=== PATIENT | male | born 1960 | race Caucasian/White ===

== ENCOUNTER 2019-04-11 11:24 | Emergency (ER) | payer OTHER ==
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
--- NOTE | 2019-04-11 12:25 | RAD REPORT ---
EXAM DESCRIPTION: CT - CTFB CLINICAL HISTORY: DEFORMITY Facial pain and swelling. COMPARISON: No comparisons TECHNIQUE: Axial 2 mm thick images of the face were obtained with sagittal and coronal reconstructio n images. All CT scans are performed using dose optimization technique as appropriate and may include automated exposure control or mA/KV adjustment according to patient size. FINDINGS: Deformity of the nasal bone is seen compatible with fracture. Mild soft tissue swelling.Th e mandible is intact. The globes and orbital contents are grossly unremarkable.Right periorbital soft tissue swelling.The p aranasal sinuses and mastoids are clear. IMPRESSION: Nasal bone fracture.
[2019-04-11 12:38] LABS: Absolute Monocytes 0.4 K/uL (0.1-1.3); Absolute Neutrophil 5.3 K/uL (1.8-8.0); Basophils % 0.4 % (0-1.3); Eosinophils % 1.5 % (0-4.4); Hematocrit 42.3 % (39.6-49.0); Lymphocytes % 25.5 % (15.3-44.8); MPV 7.2 fL (7.6-11.3); Monocytes % 5.6 % (3.3-12.3)
[2019-04-11 12:51] LABS: Potassium 3.7 mmol/L (3.5-5.1)
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
== END 2019-04-11 14:01 | disposition short-term general hospital (02) ==
LOC: ER 11:24
DX: S06.5X0A Traumatic subdural hemorrhage without loss of consciousness, initial encounter (principal); V18.0XXA Pedal cycle driver injured in noncollision transport accident in nontraffic accident, initial encounter; I10 Essential (primary) hypertension
CPT/HCPCS: 36415; 70450; 70486; 71250; 72125; 76377; 80048; 80320; 85025; 86850; 86900; 86901; 99285

== ENCOUNTER 2024-11-03 15:50 | Emergency (ER) | payer OTHER, SELFPAY ==
--- OUTSIDE RECORDS SUMMARY | 2024-11-03 15:58 | XMS REPORT | Continuity of Care Document ---
Author Name Unknown Address [address] [facility] [address] [place] [address] [facility] Address [address] [facility] 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 Role Phone Ashley Parkinson Primary Care Physician Shyla Zepeda Attending Clinician Unavailable BERANRDINO OSULLIVAN Attending Clinician Unavailable WOODY MARIN Attending Clinician Unavailable CATALINA TAY Attending Clinician UnavailJAMIA Hightower Attending Clinician Unavailable CARMELA IZQUIERDO Attending Clinician Unavailab CK Conti Attending Clinician Unavailable MELISSA DOMINGUEZ Attending Clinician Unavail able Genoveva Attending Clinician Unavailable LAB39 Attending Clinician Unavailable 39, HOLTER Attending Clinician Unavailable Jamil Manriquez MD Attending Clinician Doctor Unassigned, Harrington Attending Clinician U david Murryzaira DASILVAN, Jena Attending Clinician [phone] ISIAH KELLY Attending Clinician Unavailable ISIAH KELLY Attending Clinician Unavailable Amanda HARGROVE, Regine Attending Clinician [phone] Ruddy Kim MD Attending Clinician [phone] Broderick HARGROVE, Marli Attending Clinician [phone] Eugenio Padilla MD Attending Clinician [phone] Dewayne NELSON, Emily Aden Attending Clinician [phone] TEQWZACHARIAH EDDY Attending Clinician Unavailable Anat Rodriguez MD, Becky Attending Clinician [phone] Emmett Keys MD Attending Clinician [phone] TeqwimZachariah henderson DO Attending Clinician [phone] Elijah Lawson MD Attending Clinician [phone] JAMIL MANRIQUEZ Attending Clinician Unavailable JEANA DEAN Attending Clinician Unavailable Mitch Hull MD Attending Clinician + [phone] ELIGIO MANCAI Attending Clinician Unavailable Shyla Zepeda Admitting Clinician Unavailable CATALINA TAY Admitting Clinician UnavailCK Martinez Admitting Clinician Unavailable Genoveva Admitting Clinician Unavailable MARLI NEGRETE Admitting Clinician Unavailable EMMETT KEYS Admitting Clinician Unavailable Emmett Keys MD Admitting Clinician [phone] ELIGIO MANCIA Admitting Clinician Unavailable Payers Payer Name Policy Type Policy Number Effective Date Expirati on Date Source [facility] 9 [id number] 2024 00:00:00 [facility] [id number] 1999 00:00:00 1999 00:00:00 DIANDRA [id number] 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 ON STAND 9 [id number] 2022 00:00:00 Problems Condition Name Condition Details Condition Category Status Onset Date Resolution Date Last Treatment Date Treating Clinician Comments Source Chronic low back pain Chronic Low Back Pain Problem Active 03-31 00:00: [address] [facility] Mixed hyperlipid emia Mixed Hyperlipid emia Problem Active 03-31 00:00: [address] [facility] Essential hypertensi on Essential Hypertensi on Problem Active 03-31 00:00: [address] [facility] Benign essential hypertensi on Benign Essential Hypertensi on Problem Active 03-31 00:00: [address] [facility] Coronary atheroscle rosis Coronary Atheroscle rosis Problem Active 03-31 00:00: [address] [facility] Pulmonary emphysema Pulmonary Emphysema Problem Active 03-31 00:00: [address] [facility] HTN (hypertens ion) HTN (hypertens ion) Disease Active 06-21 00:00: 00 Belkis Seybold - Externa l Hyperlipid emia Hyperlipid emia Disease Active 06-21 00:00: 00 Belkis Seybold - Externa l CAD (coronary artery disease) CAD (coronary artery disease) Disease Active 06-21 00:00: 00 Belkis Seybold - Externa l History of CVA (cerebrova scular accident) History of CVA (cerebrova scular accident) Disease Active 06-21 00:00: 00 Belkis Seybold - Externa l Tobacco abuse Tobacco abuse Disease Active 06-21 00:00: 00 Belkis Seybold - Externa l HLD (hyperlipi demia) HLD (hyperlipi demia) Disease Active 2021-11 00:00: 00 [facility] COPD (chronic obstructiv e pulmonary disease) COPD (chronic obstructiv e pulmonary disease) Disease Recurre nce 2021-11 00:00: 00 [facility] Pneumonia Pneumonia Disease Active 2021-11 00:00: 00 [facility] STEMI (ST elevation myocardial infarction ) STEMI (ST elevation myocardial infarction ) Disease Active 2021-11 00:00: 00 [facility] Essential hypertensi on Essential hypertensi on Disease Active 03-22 00:00: 00 [facility] Chest pain Chest pain Disease Active 04-10 00:00: 00 [facility] Chronic midline low back pain without sciatica Chronic midline low back pain without sciatica Disease Active 04-10 00:00: 00 [facility] Hypertensi ve urgency Hypertensi ve urgency Disease Active 04-10 00:00: 00 [facility] Cigarette smoker Cigarette smoker Disease Active 04-10 00:00: 00 [facility] Family history of early CAD Family history of early CAD Disease Active 04-10 00:00: 00 [facility] SDH SDH Active 9 [facility] Diagnosis Active 04-11 00:00: 00 2019-12-16 14:32:00 Minna Jacinto SDHA SDHA Active 04/11/2019 [facility] Diagnosis Active 04-11 00:00: 00 2019-04-23 20:23:00 Minna Jacinto TRAUM SUBDR HEM W LOC OF UNSP DURATION, TRAUM SUBDR HEM W LOC OF UNSP DURATION, Active [facility] Diagnosis Active 2019-12-16 14:32:00 Minna Jacinto Pain Pain Disease Resolve d 2021-11 00:00: 00 2022-09-30 00:00:00 2022-09-30 22:49:00 [facility] Allergies, Adverse Reactions, Alerts Allergy Name Allergy Type Status Severity Reaction(s) Onset Date Inactive Date Treating Clinician Comments Source No Known Allergie s DA Active U 2023-11 00:00: 00 [facility] NO KNOWN ALLERGIE S Drug Class Active [facility] Family History Family Member Diagnosis Comments Start Date Stop Date Sourc e Natural father Coronary Heart [facility] Social History Social Habit Start Date Stop Date Quantity Comments Source [facility] Gender identity Brittany ey Seybold - External History of tobacco use Cigarette Smoker Belkis Bright old - External Education 2023-06-21 00:00:00 2023-06-21 00:00:00 13 Belkis Courtney - External Alcohol Comment 2023-06-21 00:00:00 2023-06-21 00:00:00 occasionally Belkis Valdez - External Cigarettes smoked current (pack per day) - Reported 2023-06-21 00:00:00 2023-06-21 00:00:00 Belkis Valdez - External Cigarette pack-years 2023-06-21 00:00:00 2023-06-21 00:00:00 Belkis Valdez - External Tobacco use and exposure 2023-06-21 00:00:00 2023-06-21 00:00:00 Smokeless tobacco non-user Belkis Valdez - External Alcohol intake 2023-06-21 00:00:00 2023-06-21 00:00:00 .86 /d Belkis Valdez - External Alcoholic beverage intake 2022-10-03 00:00:00 2022-10-03 00:00:00 Ex-drinker (finding) [facility] Exposure to SARS-CoV-2 (event) 2022-09-21 00:00:00 2022-10-01 02:29:00 Not sure [facility] History SDOH Food Worry 2022-09-27 00:00:00 2022-09-27 00:00:00 1 [facility] History SDOH Food Scarcity 2022-09-27 00:00:00 2022-09-27 00:00:00 1 [facility] History SDOH Transport Med 2022-09-27 00:00:00 2022-09-27 00:00:00 2 [facility] History SDOH Transport Non-Med 2022-09-27 00:00:00 2022-09-27 00:00:00 2 [facility] History of Social function 2021-02-06 00:00:00 2021-02-06 00:00:00 [facility] Social History 2019-04-12 04:25:51 2019-04-12 04:25:51 [facility] [place] Sex Assigned At 1960 00:00:00 1960 00:00:00 Belkis Valdez - External Smoking Status Start Date Stop Date Source Heavy Tobacco Smoker [facility] Smokes tobacco daily 2023-06-21 00:00:00 Belkis Valdez - External Former smoker 2021-03-22 00:00:00 2021-03-22 00:00:00 [facility] Medications Ordered Medication Name Filled Medication Name Start Date Stop Date Current Medication? Ordering Clinician Indication Dosage Frequency Signature (SIG) Comments Components Source spironolact one 25 mg tablet 06-26 00:00: 00 Yes 1mg Lance Cifuentes Jardiance 10 mg tablet 06-26 00:00: 00 Yes 1mg Lance Cifuentes prasugrel 10 mg tablet 06-26 00:00: 00 Yes 1mg Lance Cifuentes furosemide 20 mg tablet 06-26 00:00: 00 Yes 1mg Lance Cifuentes carvedilol 12.5 mg tablet 06-26 00:00: 00 Yes 1mg Lance Cifuentes atorvastati n 80 mg tablet 06-26 00:00: 00 Yes 1mg Lance Cifuentes enoxaparin 80 mg/0.8 mL subcutaneou s syringe 06-26 00:00: 00 Yes mg/0.8 mL Lance Cifuentes hydralazine 50 mg tablet 06-26 00:00: 00 Yes mg Lance Cifuentes losartan 100 mg tablet 06-26 00:00: 00 Yes mg Lance Cifuentes clopidogrel 75 mg tablet 06-26 00:00: 00 Yes 1mg Lance Cifuentes carvediloL (COREG) tablet 6.25 mg 06-14 03:15: 00 06-14 03:54 :00 No 6.25mg 6.25 mg, Oral, ONCE, 1 dose, On 06/13/24 at 2215, Routine [facility] losartan (COZAAR) tablet 100 mg 06-14 03:15: 00 06-14 03:54 :00 No 100mg 100 mg, Oral, ONCE, 1 dose, On 06/13/24 at 2215, Routine [facility] furosemide (LASIX) tablet 20 mg 06-14 03:15: 00 06-14 03:53 :00 No 20mg 20 mg, Oral, ONCE, 1 dose, On 06/13/24 at 2215, Routine [facility] hydrALAZINE (APRESOLINE ) tablet 50 mg 06-14 03:05: 00 06-14 03:53 :00 No 50mg 50 mg, Oral, ONCE, 1 dose, On 06/13/24 at 2215, Routine [facility] atorvastati n 80 mg tablet 06-13 00:00: 00 Yes [id number] 80mg Take 1 tablet by mouth at bedtime. [facility] aspirin 81 mg chewable tablet 06-13 00:00: 00 Yes [id number] 81mg Take 1 tablet by mouth in the morning. [facility] carvediloL 6.25 mg tablet 06-13 00:00: 00 Yes [id number] 6.25mg Take 1 tablet by mouth in the morning and 1 tablet in the evening. Take with meals. [facility] hydrALAZINE 50 mg tablet 06-13 00:00: 00 Yes [id number] 50mg Take 1 tablet by mouth every 8 (eight) hours. [facility] losartan 100 mg tablet 06-13 00:00: 00 Yes [id number] 100mg Take 1 tablet by mouth every evening. [facility] nicotine 21 mg/24 hr patch 06-13 00:00: 00 Yes [id number] 1{patch } Apply 1 Patch to area(s) every 24 (twenty-fo ur) hours. [facility] hydralazine 50 mg tablet 06-07 00:00: 00 Yes mg Lance Cifuentes carvedilol 6.25 mg tablet 04-03 00:00: 00 Yes mg Lance Cifuentes losartan 100 mg tablet 04-03 00:00: 00 Yes mg Lance Cifuentes Clopidogrel Bisulfate (PLAVIX) 75 MG oral Tablet 06-21 10:10: 31 Yes [id number] 75mg 1 tablet (75 mg total) every 24 hours Belkis simpson Furosemide (LASIX) 20 MG oral Tablet 06-21 10:10: 31 Yes [id number] 20mg 1 tablet (20 mg total) every 24 hours Belkis simpson Fluticasone -Salmeterol (Advair Diskus) 250-50 MCG/ACT inhalation AEROSOL POWDER, BREATH ACTIVATED 06-21 00:00: 00 Yes [id number] 1{puff} Inhale 1 puff into the lungs 2 times daily Belkis simpson Albuterol HFA 108 (90 Base) MCG/ACT IN AERS 06-21 00:00: 00 Yes [id number] 2{puff} Q.25D Inhale 2 puffs into the lungs every 6 hours as needed for wheezing or shortness of breath Belkis simpson nicotine 21 mg/24 hr patch 2021-11 00:00: 00 06-13 00:00 :00 No [id number] 1{patch } Apply 1 Patch to area(s) every 24 (twenty-fo ur) hours. [facility] clopidogreL 75 mg tablet 2021-11 00:00: 00 10-20 05:59 :00 No [id number] 75mg Take 1 tablet by mouth in the morning for 15 days. [facility] zolpidem (AMBIEN) tablet 5 mg 2021-11 04:15: 00 10-03 03:40 :00 No 5mg 5 mg, Oral, ONCE, 1 dose, On Sat10/02/22 at 2215, Routine [facility] melatonin (MELATIN) tablet 3 mg 2021-11 05:15: 00 10-02 05:19 :00 No 3mg 3 mg, Oral, ONCE, 1 dose, On Sat10/01/22 at 2315, Routine [facility] atorvastati n (LIPITOR) tablet 80 mg 2021-11 03:00: 00 Yes 80mg 80 mg, Oral, QHS, First dose on Sat10/01/22 at 2100, Until Discontinu ed, Routine [facility] losartan (COZAAR) tablet 100 mg 2021-11 23:00: 00 Yes 100mg 100 mg, Oral, DAILY AT 1700, First dose on Sat10/01/22 at 1700, Until Discontinu ed, Routine [facility] nicotine (NICODERM) 21 mg/24 hr patch 1 Patch 2021-11 21:45: 00 Yes 1{patch } 1 Patch, Topical, Administer over 24 Hours, Q24H, First dose on Sat10/01/22 at 1545, Until Discontinu ed, Routine [facility] clopidogreL (PLAVIX) 75 mg tablet 75 mg 2021-11 15:00: 00 Yes 75mg 75 mg, Oral, DAILY, First dose on Sat10/01/22 at 0900, Until Discontinu ed, Routine [facility] aspirin chewable tablet 81 mg 2021-11 15:00: 00 Yes 81mg 81 mg, Oral, DAILY, First dose on Sat10/01/22 at 0900, Until Discontinu ed, Routine [facility] carvediloL (COREG) tablet 6.25 mg 2021-11 14:00: 00 Yes 6.25mg 6.25 mg, Oral, BID MEALS, First dose on Sat10/01/22 at 0800, Until Discontinu ed, Routine [facility] NaCl 0.9% (NS) bolus infusion 500 mL 2021-11 05:00: 00 10-01 16:59 :00 No 500mL at 999 mL/hr, 500 mL, IV Infusion, ONCE, 1 dose, On Sat09/30/22 at 2300, STAT [facility] lidocaine 1% (PF) (XYLOCAINE) injection 2021-11 04:41: 16 10-01 04:41 :16 No ONCE INTRA PROCEDURE, Starting on Sat09/30/22 at 2241, Until Sat09/30/22 at 2241, Routine, CV Intraproce dure [facility] midazolam (VERSED) injection 2021-11 04:39: 00 10-01 05:07 :39 No ONCE INTRA PROCEDURE, Starting on 09/30/22 at 2239, Until 09/30/22 at 2307, Routine, CV Intraproce dure [facility] aspirin tablet 325 mg 2021-11 03:45: 00 10-01 15:44 :00 No 325mg 325 mg, Oral, ONCE, 1 dose, On 09/30/22 at 2145, STAT [facility] enoxaparin 80 mg/0.8 mL injection 2021-11 00:00: 00 Yes [id number] 80mg inject 0.8 mL under the skin every 12 (twelve) hours. [facility] clopidogreL 300 mg tablet 2021-11 00:00: 00 10-01 05:59 :00 No [id number] 600mg Take 2 tablets by mouth once now for 1 dose. [facility] prasugreL 10 mg tablet 2021-11 00:00: 00 Yes [id number] 10mg Take 1 tablet by mouth in the morning. [facility] aspirin 81 mg chewable tablet 2021-11 00:00: 00 06-13 00:00 :00 No [id number] 81mg Take 1 tablet by mouth in the morning. [facility] furosemide (LASIX) 20 mg tablet 2021-11 00:00: 00 Yes [id number] 20mg Take 1 tablet by mouth in the morning. [facility] atorvastati n 80 mg tablet 2021-11 00:00: 00 06-13 00:00 :00 No [id number] 80mg Take 1 tablet by mouth at bedtime. [facility] carvediloL 6.25 mg tablet 2021-11 00:00: 00 06-13 00:00 :00 No [id number] 6.25mg Take 1 tablet by mouth in the morning and 1 tablet in the evening. Take with meals. [facility] hydrALAZINE 50 mg tablet 2021-11 00:00: 00 06-13 00:00 :00 No [id number] 50mg Take 1 tablet by mouth every 8 (eight) hours. [facility] losartan 100 mg tablet 2021-11 00:00: 00 06-13 00:00 :00 No [id number] 100mg Take 1 tablet by mouth every evening. [facility] spironolact one 25 mg tablet 2021-11 00:00: 00 09-30 00:00 :00 No [id number] 25mg Take 1 tablet by mouth in the morning and 1 tablet in the evening. [facility] prasugreL (EFFIENT) tablet 10 mg 2021-11 15:00: 00 09-26 23:07 :12 No 10mg 10 mg, Oral, DAILY, First dose on Sat09/25/22 at 0900, Until Discontinu ed, Routine [facility] atorvastati n (LIPITOR) tablet 80 mg 2021-11 03:00: 00 09-26 23:07 :12 No 80mg 80 mg, Oral, QHS, First dose (after last modificati on) on Sat09/24/22 at 2100, Until Discontinu ed, Routine [facility] lactulose (CEPHULAC) solution 15 mL 2021-11 01:54: 12 09-26 23:07 :12 No 15mL 15 mL, Oral, TIDPRN, Starting on Sat09/24/22 at 1954, Until Sat09/26/22 at 1707, Routine, Constipati on [facility] losartan (COZAAR) tablet 100 mg 2021-11 23:00: 00 09-26 23:07 :12 No 100mg 100 mg, Oral, DAILY AT 1700, First dose (after last modificati on) on Sat09/24/22 at 1700, Until Discontinu ed, Routine [facility] simethicone (MYLICON) chewable tablet 125 mg 2021-11 22:15: 00 09-26 23:07 :12 No 125mg 125 mg, Oral, PC+HS, First dose on Sat09/24/22 at 1615, Until Discontinu ed, Routine [facility] iohexoL (OMNIPAQUE 300-50 mL)) injection 2021-11 18:47: 18 09-24 19:09 :25 No ONCE INTRA PROCEDURE, Starting on Sat09/24/22 at 1247, Until Sat09/24/22 at 1309, Routine, CV Intraproce dure [facility] aspirin tablet 2021-11 18:46: 04 09-24 19:09 :25 No ONCE INTRA PROCEDURE, Starting on Sat09/24/22 at 1246, Until Sat09/24/22 at 1309, Routine, CV Intraproce dure [facility] prasugreL (EFFIENT) tablet 2021-11 18:45: 52 09-24 19:09 :25 No ONCE INTRA PROCEDURE, Starting on Sat09/24/22 at 1245, Until Sat09/24/22 at 1309, Routine, CV Intraproce dure [facility] nitroglycer in (TRIDIL) 2 mg in 10 mL D5W for Cardiac Cath 2021-11 17:52: 22 09-24 19:09 :25 No ONCE INTRA PROCEDURE, Starting on Sat09/24/22 at 1152, Until Sat09/24/22 at 1309, Routine, CV Intraproce dure [facility] heparin 1,000 unit/mL injection 2021-11 16:57: 26 09-24 19:09 :25 No ONCE INTRA PROCEDURE, Starting on Sat09/24/22 at 1057, Until Sat09/24/22 at 1309, Routine, CV Intraproce dure [facility] NaCl 0.9% (NS) bolus infusion 2021-11 16:42: 52 09-24 16:42 :52 No CONTINUOUS PRN, Starting on Sat09/24/22 at 1042, Until Discontinu ed, [facility] 2021-11 16:42: 15 09-24 19:09 :25 No ONCE INTRA PROCEDURE, Starting on Sat09/24/22 at 1042, Until Sat09/24/22 at 1309, Routine, CV Intraproce dure [facility] FENTanyl PF (SUBLIMAZE (PF)) injection 2021-11 16:42: 00 09-24 19:09 :25 No ONCE INTRA PROCEDURE, Starting on Sat09/24/22 at 1042, Until Sat09/24/22 at 1309, Routine, CV Intraproce dure [facility] HYDROcodone -acetaminop hen (NORCO 5) 5-325 mg tablet 1 tablet 2021-11 18:41: 33 09-26 23:07 :12 No 1{tbl} 1 tablet, Oral, Q6HPRN, Starting on 09/22/22 at 1241, Until Sat09/26/22 at 1707, Routine, Pain (scale 7-10) [facility] traMADoL (ULTRAM) tablet 50 mg 2021-11 18:41: 26 09-26 23:07 :12 No 50mg 50 mg, Oral, Q6HPRN, Starting on 09/22/22 at 1241, Until Sat09/26/22 at 1707, Routine, Pain (scale 4-6) [facility] KCL (KLOR-CON M20) tablet 40 mEq 2021-11 13:30: 00 09-22 12:49 :00 No 40meq 40 mEq, Oral, ONCE, 1 dose, On 09/22/22 at 0730, Routine [facility] heparin (porcine) injection 5,000 Units 2021-11 02:00: 00 09-26 23:07 :12 No 5000U 5,000 Units, Subcutaneo us, BID, First dose on Sat09/21/22 at 2000, Until Discontinu ed, Routine [facility] spironolact one (ALDACTONE) tablet 25 mg 2021-11 02:00: 00 09-26 23:07 :12 No 25mg 25 mg, Oral, BID, First dose on Sat09/21/22 at 2000, Until Discontinu ed, Routine [facility] furosemide (LASIX) injection 80 mg 2021-11 20:00: 00 09-23 21:53 :00 No 80mg 80 mg, IV Push, Q8H, First dose (after last modificati on) on Sat09/21/22 at 1400, Until Discontinu ed, Routine [facility] metOLazone (ZAROXOLYN) tablet 5 mg 2021-11 19:45: 00 09-21 20:12 :00 No 5mg 5 mg, Oral, ONCE, 1 dose, On Sat09/21/22 at 1345, Routine [facility] lidocaine 1% (PF) (XYLOCAINE) injection 2021-11 19:22: 00 09-21 19:22 :00 No PRN, Starting on Sat09/21/22 at 1322, Until Sat09/21/22 at 1322, Routine [facility] dextrose 10% (D10W) bolus infusion 125 mL 2021-11 19:10: 20 09-26 23:07 :12 No 125mL 125 mL, IV Infusion, PRN - SEE INSTRUCTIO NS, Administer over 60 Minutes, Other, Blood Glucose < or = 70 mg/dL and patient is unable to swallow or has mental status changes., Starting on Sat09/21/22 at 1310
De xtrose 10% 250 mL bag contains:& nbsp;10 gm = 100 mL 20 gm = 200 mL 25 gm = 250 mL (whole bag) The maximum rate at which dextrose can be infused without producing glycosuria is 0.5 g/kg/hour. &nbs p;BUD: If wrapper is open bag is good for 30 days at room temperatur e. <b r> [facility] glucagon (GLUCAGEN DIAGNOSTIC KIT) injection 1 mg 2021-11 19:06: 58 09-26 23:07 :12 No 1mg 1 mg, Intramuscu lar, PRN, Starting on Sat09/21/22 at 1306, Until Sat09/26/22 at 1707, ENZO, Blood Glucose < or = 70 mg/dL and patient is unable to swallow or has mental changes. [facility] iopamidol (ISOVUE 370-500 mL) injection 80 mL 2021-11 16:45: 00 09-21 15:34 :00 No [id number] 80mL 80 mL, Intravenou s, ONCE, 1 dose, On Sat09/21/22 at 1045, Routine [facility] carvediloL (COREG) tablet 6.25 mg 2021-11 14:00: 00 09-26 23:07 :12 No 6.25mg 6.25 mg, Oral, BID MEALS, First dose on Sat09/21/22 at 0800, Until Discontinu ed, Routine [facility] furosemide (LASIX) injection 40 mg 2021-11 04:00: 00 09-21 18:54 :37 No 40mg 40 mg, IV Push, Q8H, First dose on Sat09/20/22 at 2200, Until Discontinu ed, Routine [facility] ALPRAZolam (XANAX) tablet 0.5 mg 2021-11 16:54: 09 09-26 13:05 :53 No .5mg 0.5 mg, Oral, TIDPRN, Starting on Sat09/20/22 at 1054, Until Sat09/26/22 at 0705, Routine, Anxiety, [facility]ut[facility] propion-corey meteroL (ADVAIR) 250-50 mcg/dose inhalation disk 1 Puff 2021-11 02:00: 00 09-26 23:07 :12 No 1{puff} 1 Puff, Inhalation , Q12H, First dose on Sat09/19/22 at 2000, Until Discontinu ed, Routine [facility] furosemide (LASIX) injection 40 mg 2021-11 23:00: 00 09-19 23:44 :00 No 40mg 40 mg, Slow IV Push, ONCE, 1 dose, On Sat09/19/22 at 1700, [facility]ine [facility] ALPRAZolam (XANAX) tablet 0.5 mg 2021-11 13:06: 53 09-20 16:54 :32 No .5mg 0.5 mg, Oral, TIDPRN, Starting on Sat09/19/22 at 0706, Until Sat09/20/22 at 1054, Routine, insomnia [facility] ceFEPIme (MAXIPIME) 1,000 mg in NaCl 0.9% (NS) 50 mL MINI-BAG 2021-11 05:15: 00 09-25 14:23 :25 No 1000mg 1,000 mg, IV Piggyback, Q8H ABX, 21 doses, First dose on Sat09/18/22 at 2315, Last dose on Sat09/25/22 at 1515, Administer over 4 Hours, 50 mL
Reas on for Anti-Infec tive: Documented Infection< br>Documen alee Infection Site: Respirator y
Durat ion of Therapy: 7 days [facility] metoprolol tartrate (LOPRESSOR) tablet 50 mg 2021-11 02:00: 00 09-21 02:04 :54 No 50mg 50 mg, Oral, BID, First dose (after last modificati on) on Sat09/18/22 at 2000, Until Discontinu ed, Routine [facility] ALPRAZolam (XANAX) tablet 0.5 mg 2021-11 21:47: 59 09-19 00:09 :00 No .5mg 0.5 mg, Oral, TIDPRN, 1 dose, Starting on Sat09/18/22 at 1547, Until Sat09/18/22 at 1809, Routine, insomnia [facility] ceFEPIme (MAXIPIME) 1,000 mg in NaCl 0.9% (NS) 50 mL MINI-BAG 2021-11 21:30: 00 09-18 22:38 :00 No 1000mg 1,000 mg, IV Piggyback, ONCE, 1 dose, On Sat09/18/22 at 1530, Administer over 30 Minutes, 50 mL
Reas on for Anti-Infec tive: Documented Infection< br>Documen alee Infection Site: Respirator y
Durat ion of Therapy: Other (see Comments) [facility] hydrALAZINE (APRESOLINE ) tablet 50 mg 2021-11 20:00: 00 09-26 23:07 :12 No 50mg 50 mg, Oral, Q8H, First dose on Sat09/18/22 at 1400, Until Discontinu ed, Routine [facility] ALPRAZolam (XANAX) tablet 0.5 mg 2021-11 15:39: 13 09-18 15:56 :00 No .5mg 0.5 mg, Oral, TIDPRN, 1 dose, Starting on Sat09/18/22 at 0939, Until Sat09/18/22 at 0956, Routine, insomnia [facility] hydralAZINE (APRESOLINE ) injection 10 mg 2021-11 12:00: 00 09-18 14:43 :00 No 10mg 10 mg, Slow IV Push, ONCE, 1 dose, On Sat09/18/22 at 0600, STAT [facility] hydralAZINE (APRESOLINE ) injection 10 mg 2021-11 10:30: 00 09-18 10:21 :00 No 10mg 10 mg, Slow IV Push, ONCE, 1 dose, On Sat09/18/22 at 0430, STAT [facility] ipratropium -albuteroL (DUONEB) 0.5 mg-3 mg(2.5 mg base)/3 mL nebulizer solution 3 mL 2021-11 09:45: 00 09-18 08:52 :00 No 3mL 3 mL, Inhalation , ONCE, 1 dose, On Sat09/18/22 at 0345, Routine [facility] cloNIDine (CATAPRES) tablet 0.1 mg 2021-11 08:08: 59 09-26 23:07 :12 No .1mg 0.1 mg, Oral, TIDPRN, Starting on Sat09/18/22 at 0208, Until Sat09/26/22 at 1707, Routine, above 160/100 [facility] ALPRAZolam (XANAX) tablet 0.5 mg 2021-11 01:57: 40 09-18 02:27 :00 No .5mg 0.5 mg, Oral, QHSPRN, 1 dose, Starting on Sat09/17/22 at 1957, Until Sat09/17/22 at 7, Routine, insomnia [facility] iopamidol (ISOVUE 370-500 mL) injection 2021-11 20:01: 38 09-17 20:08 :06 No ONCE INTRA PROCEDURE, Starting on Sat09/17/22 at 1401, Until Sat09/17/22 at 1408, Routine, CV Intraproce dure [facility] verapamiL (ISOPTIN) injection 2021-11 19:38: 35 09-17 20:08 :06 No ONCE INTRA PROCEDURE, Starting on Sat09/17/22 at 1338, Until Sat09/17/22 at 1408, Routine, CV Intraproce dure [facility] nitroglycer in (TRIDIL) 2 mg in 10 mL D5W for Cardiac Cath 2021-11 19:38: 20 09-17 20:08 :06 No ONCE INTRA PROCEDURE, Starting on Sat09/17/22 at 1338, Until Sat09/17/22 at 1408, Routine, CV Intraproce dure [facility] heparin 1,000 unit/mL injection 2021-11 19:37: 55 09-17 20:08 :06 No ONCE INTRA PROCEDURE, Starting on Sat09/17/22 at 1337, Until Sat09/17/22 at 1408, Routine, CV Intraproce dure [facility] NaCl 0.9% (NS) bolus infusion 2021-11 19:35: 06 09-17 19:35 :06 No CONTINUOUS PRN, Starting on Sat09/17/22 at 1335, Until Sat09/17/22 at 1335, STAT, CV Intraproce dure [facility] lidocaine 1% (PF) (XYLOCAINE) injection 2021-11 19:34: 33 09-17 20:08 :06 No ONCE INTRA PROCEDURE, Starting on Sat09/17/22 at 1334, Until Sat09/17/22 at 1408, Routine, CV Intraproce dure [facility] midazolam (VERSED) injection 2021-11 19:32: 37 09-17 20:08 :06 No ONCE INTRA PROCEDURE, Starting on Sat09/17/22 at 1332, Until Sat09/17/22 at 1408, Routine, CV Intraproce dure [facility] FENTanyl PF (SUBLIMAZE (PF)) injection 2021-11 19:32: 26 09-17 20:08 :06 No ONCE INTRA PROCEDURE, Starting on Sat09/17/22 at 1332, Until Sat09/17/22 at 1408, Routine, CV Intraproce dure [facility] ipratropium -albuteroL (DUONEB) 0.5 mg-3 mg(2.5 mg base)/3 mL nebulizer solution 3 mL 2021-11 11:42: 00 09-17 11:51 :00 No 3mL 3 mL, Inhalation , ONCE, 1 dose, On Sat09/17/22 at 0545, Routine [facility] LORazepam (ATIVAN) injection 0.5 mg 2021-11 10:47: 20 09-17 10:57 :00 No .5mg 0.5 mg, Slow IV Push, TIDPRN, 1 dose, Starting on Sat09/17/22 at 0447, Until Sat09/17/22 at 0457, Routine, Anxiety [facility] ALPRAZolam (XANAX) tablet 0.5 mg 2021-11 03:16: 50 09-17 08:20 :00 No .5mg 0.5 mg, Oral, QHSPRN, 1 dose, Starting on Sat09/16/22 at 2116, Until Sat09/17/22 at 0220, Routine, insomnia [facility] nicotine (NICODERM) 14 mg/24 hr patch 1 Patch 2021-11 02:00: 00 09-26 23:07 :12 No 1{patch } 1 Patch, Topical, Administer over 24 Hours, Q24H, First dose on 09/16/22 at 2000, Until Discontinu ed, Routine [facility] clopidogreL (PLAVIX) 75 mg tablet 75 mg 2021-11 15:00: 00 Yes 75mg 75 mg, Oral, DAILY, First dose on 09/16/22 at 0900, Until Discontinu ed, Routine [facility] clopidogreL (PLAVIX) 300 mg tablet 300 mg 2021-11 21:30: 00 09-15 22:41 :00 No 300mg 300 mg, Oral, ONCE, 1 dose, On 09/15/22 at 1630, Routine [facility] aspirin chewable tablet 81 mg 2021-11 14:00: 00 09-26 23:07 :12 No 81mg 81 mg, Oral, DAILY, First dose on 09/15/22 at 0900, Until Discontinu ed, Routine [facility] enoxaparin (LOVENOX) injection 70 mg 2021-11 13:00: 00 09-17 05:13 :10 No 1mg/kg 70 mg (rounded from 73 mg = 1 mg/kg ?73 kg), Subcutaneo us, Q12H, First dose on 09/15/22 at 0800, Until Discontinu ed, Routine [facility] losartan (COZAAR) tablet 50 mg 2021-11 07:15: 00 Yes 50mg 50 mg, Oral, DAILY AT 1700, First dose on 09/15/22 at 0215, Until Discontinu ed, Routine [facility] ipratropium -albuteroL (DUONEB) 0.5 mg-3 mg(2.5 mg base)/3 mL nebulizer solution 3 mL 2021-11 07:15: 00 09-26 23:07 :12 No 3mL 3 mL, Inhalation , QID, First dose (after last modificati on) on 09/15/22 at 0215, Until Discontinu ed, Routine [facility] methylpredn isolone sod succ (SOLU-MEDRO L) injection 60 mg 2021-11 07:15: 00 09-26 23:07 :12 No 60mg 60 mg, Slow IV Push, Q12HA1, First dose on 09/15/22 at 0215, Until Discontinu ed, Routine [facility] azithromyci n (ZITHROMAX) tablet 500 mg 2021-11 07:15: 00 09-17 02:41 :00 No 500mg 500 mg, Oral, QHS, 3 doses, First dose on 09/15/22 at 0215, Last dose on 09/16/22 at 2100, ENZO
Re ason for Anti-Infec tive: Empiric Therapy for Suspected Infection< br>Empiric Therapy Site: Respirator y
Durat ion of therapy: 72 hours [facility] atorvastati n (LIPITOR) tablet 40 mg 2021-11 07:00: 00 Yes 40mg 40 mg, Oral, QHS, First dose on 09/15/22 at 0200, Until Discontinu ed, Routine [facility] metoprolol tartrate (LOPRESSOR) tablet 25 mg 2021-11 07:00: 00 Yes 25mg 25 mg, Oral, BID, First dose on 09/15/22 at 0200, Until Discontinu ed, Routine [facility] labetaloL (NORMODYNE) injection 10 mg 2021-11 06:56: 41 09-26 23:07 :12 No 10mg 10 mg, Slow IV Push, Q4HPRN, Starting on 09/15/22 at 0156, Until Sat09/26/22 at 1707, Routine, SBP above 150 [facility] ondansetron (ZOFRAN (PF)) injection 4 mg 2021-11 06:55: 45 09-26 23:07 :12 No 4mg 4 mg, Slow IV Push, Q6HPRN, Starting on 09/15/22 at 0155, Until Sat09/26/22 at 1707, Routine, Nausea and Vomiting (N/V) [facility] acetaminoph en (TYLENOL) tablet 650 mg 2021-11 06:55: 37 09-26 23:07 :12 No 650mg 650 mg, Oral, Q6HPRN, Starting on 09/15/22 at 0155, Until 09/26/22 at 1707, Routine, Pain (scale 1-3) [facility] valsartan-h ydrochlorot hiazide 320-12.5 mg per tablet 03-22 00:00: 00 09-26 00:00 :00 No [id number] 1{tbl} Take 1 tablet by mouth daily. [facility] tiZANidine 4 mg tablet 03-22 00:00: 00 09-26 00:00 :00 No [id number] 4mg Take 1 tablet by mouth every 6 (six) hours as needed for Pain (scale 4-6). [facility] acetaminoph en-codeine (TYLENOL-CO DEINE #3) 300-30 mg tablet 03-22 00:00: 00 03-30 04:59 :00 No [id number] 1{tbl} Take 1 tablet by mouth every 4 (four) hours as needed for Pain (scale 4-6) for up to 7 days. Indication s: chronic pain [facility] valsartan-h ydrochlorot hiazide 160-12.5 mg per tablet 03-09 00:00: 00 03-22 00:00 :00 No [id number] 1{tbl} Take 1 tablet by mouth daily. [facility] traMADoL 50 mg tablet 03-09 00:00: 00 03-17 04:59 :00 No [id number] 50mg Take 1 tablet by mouth every 6 (six) hours as needed for Pain (scale 4-6) for up to 7 days. Indication s: chronic pain [facility] losartan 100 mg tablet 3- 00:00: 00 03-09 00:00 :00 No [id number] 100mg Take 1 tablet by mouth daily. [facility] amLODIPine 5 mg tablet 04-12 00:00: 00 02-06 00:00 :00 No [id number] 5mg Take 1 tablet by mouth daily. [facility] losartan 50 mg tablet 04-12 00:00: 00 02-06 00:00 :00 No [id number] 50mg Take 1 tablet by mouth daily. [facility] aspirin 81 mg chewable tablet 04-11 00:00: 00 02-06 00:00 :00 No [id number] 81mg Take 1 tablet by mouth daily. [facility] Bacitracin 04-14 14:00: 00 No 1 appl, Route: TOP, Daily, Drug form: OINT, Start date: 04/14/19 9:00:00 CDT, Duration: 30 day, Stop date: 05/13/19 9:00:00 CDT Minna Jacinto Acetaminoph en 325 MG Oral Tablet 04-13 16:04: 00 Yes 100.4 F, 0 Refill(s) Minna Jacinto lisinopril 20 mg oral tablet 04-13 16:04: 00 Yes 40 mg = 2 tab, PO, Daily, 0 Refill(s) Minna Jacinto Levetiracet am 500 MG Oral Tablet 04-13 16:04: 00 Yes 500 mg = 1 tab, PO, Q12H, # 12 tab, 0 Refill(s) Minna Jacinto Bacitracin 04-13 16:04: 00 Yes 1 appl, TOP, Daily, 0 Refill(s) Minna Jacinto NIFEdipine 30 mg oral tablet, extended release 04-13 16:04: 00 Yes 30 mg = 1 tab, PO, Daily, 0 Refill(s) Minna Jacinto heparin sodium, porcine 2500 UNT/ML Injectable Solution 04-13 13:00: 00 No Notes: porcine heparin Minna Jacinto Multivitami ns with Folic Acid 0.4 mg oral tablet 04-12 17:52: 00 No 1 tab, Route: PO, Drug Form: TAB, Dosing Weight 68, kg, Daily, Start date: 04/12/19 12:52:00 CDT, Duration: 30 day, Stop date: 05/12/19 9:00:00 CDT Minna Jacinto NIFEdipine 30 mg oral tablet, extended release 04-12 06:50: 00 No Notes: (Same as: Adalat CC, Procardia XL) Give on empty stomach. Take 1 hour before or 2 hours after meal; "Avoid grapefruit and grapefruit juice". Do not crush Minna Jacinto Magnesium Oxide 04-12 06:45: 00 No Notes: (Same as: Mag-Ox 400) Magnesium oxide [id number] g elemental magnesium Dose=____m g magnesium oxide (___mg elemental magnesium) Minna Jacinto Calcium Carbonate 500 MG Chewable Tablet 04-12 06:45: 00 No Notes: (Same As: Tums) Calcium Carbonate 500 mg = 200 mg elemental calcium Dose = mg calcium carbonate ( mg elemental calcium) Minna simpson [place] Calcium Gluconate 04-12 06:45: 00 No Notes: WASTE: F/P - Sink; E - Municipal Trash Bin Mikegeorge calvin Jacinto potassium phosphate-s odium phosphate 250 mg-280 mg-160 mg oral powder for reconstitut ion 04-12 06:45: 00 No Notes: (Same as: Phos-NaK) Each 1.5 gm pkt has 250mg phosphorou s. Mix w/2.5oz water and stir. Minna simpson [place] Magnesium Sulfate 04-12 06:45: 00 No Notes: WASTE: F/P - Sink; E - Municipal Trash Bin Minna Jacinto potassium phosphate 04-12 06:45: 00 No Notes: (Same as: K Phosphate. ) Do not infuse phosphorou s concurrent ly in the same line as TPN or IVF that contains calcium. For double lumen central lines, phosphorou s may be infused in a separate lumen from TPN. 1 mMol phoshate has 1.47 mEq potassium Infuse over 4 hours Minna Jacinto Potassium Chloride 04-12 06:45: 00 No Notes: (Same as: KCL) Infuse over 2 hours. Minna Jacinto sodium phosphate 04-12 06:45: 00 No Notes: Infuse over 4 hour. Do not infuse phosphorou s concurrent ly in the same line as TPN or IVF that contains calcium. For double lumen central lines, phosphorou s may be infused in a separate lumen from TPN. Memgeorge l [place] Lisinopril 04-12 05:29: 00 No Notes: (Same as: Prinivil, Zestril) Memgeorge l [place] Albuterol 0.833 MG/ML / Ipratropium [place] 0.167 MG/ML Inhalant Solution [DuoNeb] 04-12 02:52: 00 No Notes: (Same as: Duoneb) Memgeorge Jacinto Nicardipine 04-12 02:23: 00 No Notes: Same as: Cardene Concentrat ion: (0.1 mg/ 1 ml) Memgeorge l [place] Albuterol 0.833 MG/ML / Ipratropium [place] 0.167 MG/ML Inhalant Solution [DuoNeb] 04-12 02:04: 00 No Notes: (Same as: Duoneb) Memgeorge l [place] Saline Flush 0.9% 04-12 02:00: 00 No Notes: (Same as: BD Posiflush) Memgeorge Jacinot Levetiracet am 04-12 02:00: 00 No Notes: (Same as:Keppra) Memgeorge l [place] Docusate 04-12 02:00: 00 No Notes: (Same as: Colace) (Do Not Crush) Memgeorge Jacinto sennosides, PENITENT[facility]ARY 04-12 02:00: 00 No Notes: (Same as: Senokot) Memgeorge l [place] Albuterol 0.83 MG/ML Inhalant Solution 04-12 02:00: 00 No Notes: SEE RT DOCUMENTAT ION (Same as: Proventil) Memoria l [place] Saline Flush 0.9% 04-11 23:42: 00 No Notes: (Same as: BD Posiflush) Memoria l [place] Acetaminoph en 04-11 23:42: 00 No Notes: Do not exceed 4 gm/day. (Same as: Tylenol) Memoria l [place] Ondansetron 04-11 23:42: 00 No Notes: (Same as: Ashley) MEDICATION WASTE Product Size: 4 mg Product Wasted: ___ mg Minna Jacinto Cardene 40 mg in NS 200 mL (Titrate.) IV 40 mg 04-11 22:49: 00 No Notes: Same as: Cardene Concentrat ion: (0.2 mg /1 ml ) Minna Jacinto Morphine 04-11 22:48: 00 No 4 mg, Route: IVP, ONCE, Dosing Weight 68, kg, Priority: STAT, Start date: 04/11/19 17:48:00 CDT, Stop date: 04/11/19 17:48:00 CDT Minna Jacinto Lidocaine Hydrochlori de 10 MG/ML Injectable Solution 04-11 21:55: 00 Yes Notes: (Same as: Xylocaine) Minna Jacinto Keppra 04-11 21:21: 00 No 1,000 mg, Route: IV, ONCE, Dosing Weight 68, kg, Start date: 04/11/19 16:21:00 CDT, Stop date: 04/11/19 16:21:00 CDT Minna Jacinto carvedilol 6.25 mg tablet Take 1 tablet twice a day by oral route. carvedilol 6.25 mg tablet Take 1 tablet twice a day by oral route. No 1 BID carvedilol 6.25 mg tablet Take 1 tablet twice a day by oral route. [facility] clopidogrel 75 mg tablet Take 1 tablet every day by oral route. clopidogrel 75 mg tablet Take 1 tablet every day by oral route. No 1 Q1D clopidogre l 75 mg tablet Take 1 tablet every day by oral route. [facility] hydralazine 50 mg tablet Take 1 tablet twice a day by oral route. hydralazine 50 mg tablet Take 1 tablet twice a day by oral route. No 1 BID hydralazin e 50 mg tablet Take 1 tablet twice a day by oral route. [facility] losartan 100 mg tablet Take 1 tablet every day by oral route. losartan 100 mg tablet Take 1 tablet every day by oral route. No 1 Q1D losartan 100 mg tablet Take 1 tablet every day by oral route. [facility] e Immunizations Ordered Immunization Name Filled Immunization Name Date Status Comments Source Pneumococcal 20 Conjugate, PCV20 (Prevnar 20) 2022-09-26 00:00:00 Completed [facility] Influenza Virus Vaccine Quad IM, Preserv and ABX Free 6 MO-64 YRS 2022-09-26 00:00:00 Completed [facility] Pneumococcal 20 Conjugate, PCV20 (Prevnar 20) 2022-09-26 00:00:00 Completed [facility] Influenza Virus Vaccine Quad IM, Preserv and ABX Free 6 MO-64 YRS 2022-09-26 00:00:00 Completed [facility] Pneumococcal 20 Conjugate, PCV20 (Prevnar 20) 2022-09-26 00:00:00 Completed [facility] Influenza Virus Vaccine Quad IM, Preserv and ABX Free 6 MO-64 YRS 2022-09-26 00:00:00 Completed [facility] Pneumococcal 20 Conjugate, PCV20 (Prevnar 20) 2022-09-26 00:00:00 Completed [facility] Influenza Virus Vaccine Quad IM, Preserv and ABX Free 6 MO-64 YRS 2022-09-26 00:00:00 Completed [facility] Pneumococcal 20 Conjugate, PCV20 (Prevnar 20) 2022-09-26 00:00:00 Completed [facility] Influenza Virus Vaccine Quad IM, Preserv and ABX Free 6 MO-64 YRS 2022-09-26 00:00:00 Completed [facility] Pneumococcal 20 Conjugate, PCV20 (Prevnar 20) 2022-09-26 00:00:00 Completed [facility] Influenza Virus Vaccine Quad IM, Preserv and ABX Free 6 MO-64 YRS 2022-09-26 00:00:00 Completed [facility] Pneumococcal 20 Conjugate, PCV20 (Prevnar 20) 2022-09-26 00:00:00 Completed [facility] Influenza Virus Vaccine Quad IM, Preserv and ABX Free 6 MO-64 YRS 2022-09-26 00:00:00 Completed [facility] Pneumococcal 20 Conjugate, PCV20 (Prevnar 20) 2022-09-26 00:00:00 Completed [facility] Influenza Virus Vaccine Quad IM, Preserv and ABX Free 6 MO-64 YRS 2022-09-26 00:00:00 Completed [facility] Pneumococcal 20 Conjugate, PCV20 (Prevnar 20) 2022-09-26 00:00:00 Completed [facility] Influenza Virus Vaccine Quad IM, Preserv and ABX Free 6 MO-64 YRS 2022-09-26 00:00:00 Completed [facility] Pneumococcal 20 Conjugate, PCV20 (Prevnar 20) 2022-09-26 00:00:00 Completed [facility] Influenza Virus Vaccine Quad IM, Preserv and ABX Free 6 MO-64 YRS 2022-09-26 00:00:00 Completed [facility] Pneumococcal 20 Conjugate, PCV20 (Prevnar 20) 2022-09-26 00:00:00 Completed [facility] Influenza Virus Vaccine Quad IM, Preserv and ABX Free 6 MO-64 YRS 2022-09-26 00:00:00 Completed [facility] Pneumococcal 20 Conjugate, PCV20 (Prevnar 20) Unknown Completed [facility] Influenza Virus Vaccine Quad IM, Preserv and ABX Free 6 MO-64 YRS (FLUCELVAX) Unknown Completed [facility] Pneumococcal 20 Conjugate, PCV20 (Prevnar 20) Unknown Completed [facility] Influenza Virus Vaccine Quad IM, Preserv and ABX Free 6 MO-64 YRS (FLUCELVAX) Unknown Completed [facility] Vital Signs Vital Name Observation Time Observation Value Comments S ource Systolic blood pressure 2024-06-14 04:30:00 186 mm[Hg] [facility] Diastolic blood pressure 2024-06-14 04:30:00 99 mm[Hg] [facility] Heart rate 2024-06-14 04:30:00 76 /min [facility] Body temperature 2024-06-14 04:30:00 36.5 Tyesha [facility] Respiratory rate 2024-06-14 04:30:00 16 /min [facility] Oxygen saturation in Arterial blood by Pulse oximetry 2024-06-14 04:30:00 96 /min [facility] Body height 2024-06-14 02:53:00 175.3 cm [facility] Body weight 2024-06-14 02:53:00 74.844 kg [facility] BMI 2024-06-14 02:53:00 24.37 kg/m2 [facility] BP Diastolic 2024-03-31 00:00:00 98 mm[Hg] [facility] BP Systolic 2024-03-31 00:00:00 160 mm[Hg] [facility] Body Weight 2024-03-31 00:00:00 158 [lb_av] [facility] Height 2024-03-31 00:00:00 69 [in_i] [facility] BMI (Body Mass Index) 2024-03-31 00:00:00 23.3 kg/m2 [facility] Systolic blood pressure 2023-06-21 15:04:00 158 mm[Hg] [facility] Diastolic blood pressure 2023-06-21 15:04:00 84 mm[Hg] [facility] Baltazarybold - External Heart rate 2023-06-21 15:04:00 72 /min [facility] Brightold - External Body temperature 2023-06-21 15:04:00 36.56 Tyesha [facility] Baltazarybold - External Respiratory rate 2023-06-21 15:04:00 20 /min [facility] Baltazarybold - External Body height 2023-06-21 15:04:00 177.8 cm [facility] Valdez - External Body weight 2023-06-21 15:04:00 71.94 kg Belkis Baltazarybrebecca - External BMI 2023-06-21 15:04:00 22.76 kg/m2 [facility] Valdez - External Oxygen saturation in Arterial blood by Pulse oximetry 2023-06-21 15:04:00 95 /min [facility] Baltazarybold - External Systolic blood pressure 2022-10-03 23:24:00 172 mm[Hg] [facility] Diastolic blood pressure 2022-10-03 23:24:00 104 mm[Hg] [facility] Heart rate 2022-10-03 23:24:00 75 /min [facility] Body temperature 2022-10-03 23:24:00 36.83 Tyesha [facility] Oxygen saturation in Arterial blood by Pulse oximetry 2022-10-03 23:24:00 99 /min [facility] Respiratory rate 2022-10-03 17:46:00 17 /min [facility] Body height 2022-10-02 04:11:00 175.3 cm [facility] Body weight 2022-10-02 04:11:00 78.472 kg [facility] BMI 2022-10-02 04:11:00 25.55 kg/m2 [facility] Systolic blood pressure 2022-10-01 07:15:00 121 mm[Hg] [facility] Diastolic blood pressure 2022-10-01 07:15:00 57 mm[Hg] [facility] Heart rate 2022-10-01 07:15:00 77 /min [facility] Respiratory rate 2022-10-01 07:15:00 26 /min [facility] Oxygen saturation in Arterial blood by Pulse oximetry 2022-10-01 07:15:00 99 /min [facility] Body temperature 2022-10-01 06:00:00 37.22 Tyesha [facility] Body weight 2022-10-01 03:28:00 78.6 kg [facility] BMI 2022-10-01 03:28:00 25.55 kg/m2 [facility] Systolic blood pressure 2022-09-26 18:07:00 138 mm[Hg] [facility] Diastolic blood pressure 2022-09-26 18:07:00 77 mm[Hg] [facility] Heart rate 2022-09-26 18:07:00 68 /min [facility] Body temperature 2022-09-26 18:07:00 36.78 Tyesha [facility] Respiratory rate 2022-09-26 18:07:00 18 /min [facility] Oxygen saturation in Arterial blood by Pulse oximetry 2022-09-26 18:07:00 98 /min [facility] Body weight 2022-09-25 17:00:00 72.122 kg [facility] BMI 2022-09-25 17:00:00 23.48 kg/m2 [facility] Body height 2022-09-24 16:33:05 175.3 cm [facility] Systolic blood pressure 2022-09-24 16:33:05 136 mm[Hg] [facility] Diastolic blood pressure 2022-09-24 16:33:05 74 mm[Hg] [facility] Respiratory rate 2022-09-24 16:33:05 18 /min [facility] Body height 2022-09-24 16:33:05 175.3 cm [facility] Body weight 2022-09-24 16:33:05 72.122 kg [facility] BMI 2022-09-24 16:33:05 23.48 kg/m2 [facility] Oxygen saturation in Arterial blood by Pulse oximetry 2022-09-24 16:33:05 98 /min [facility] Heart rate 2022-09-24 14:20:00 74 /min [facility] Body temperature 2022-09-24 13:16:00 36.56 Tyesha [facility] Heart rate 2022-09-17 21:30:00 74 /min [facility] Respiratory rate 2022-09-17 21:30:00 18 /min [facility] Oxygen saturation in Arterial blood by Pulse oximetry 2022-09-17 21:30:00 96 /min [facility] Systolic blood pressure 2022-09-17 21:15:00 158 mm[Hg] [facility] Diastolic blood pressure 2022-09-17 21:15:00 101 mm[Hg] [facility] Body height 2022-09-17 19:10:04 175.3 cm [facility] Body weight 2022-09-17 19:10:04 72.122 kg [facility] BMI 2022-09-17 19:10:04 23.48 kg/m2 [facility] Body temperature 2022-09-17 17:47:00 36.33 Tyesha [facility] Systolic blood pressure 2021-03-22 14:41:00 160 mm[Hg] per Dr anaya was adjusted [facility] Diastolic blood pressure 2021-03-22 14:41:00 100 mm[Hg] per Dr anaya was adjusted [facility] Systolic blood pressure 2021-03-22 14:28:00 188 mm[Hg] [facility] Diastolic blood pressure 2021-03-22 14:28:00 112 mm[Hg] [facility] Heart rate 2021-03-22 14:28:00 76 /min [facility] Body height 2021-03-22 14:28:00 175.3 cm [facility] Body weight 2021-03-22 14:28:00 73.211 kg [facility] BMI 2021-03-22 14:28:00 23.83 kg/m2 [facility] Oxygen saturation in Arterial blood by Pulse oximetry 2021-03-22 14:28:00 97 /min [facility] Systolic blood pressure 2021-03-09 18:15:00 200 mm[Hg] [facility] Diastolic blood pressure 2021-03-09 18:15:00 100 mm[Hg] [facility] Heart rate 2021-03-09 18:15:00 77 /min [facility] Body weight 2021-03-09 18:15:00 73.936 kg [facility] BMI 2021-03-09 18:15:00 24.07 kg/m2 [facility] Oxygen saturation in Arterial blood by Pulse oximetry 2021-03-09 18:15:00 97 /min [facility] Systolic blood pressure 2021-02-06 19:29:00 184 mm[Hg] [facility] Diastolic blood pressure 2021-02-06 19:29:00 82 mm[Hg] [facility] Heart rate 2021-02-06 19:29:00 71 /min [facility] Body height 2021-02-06 19:29:00 175.3 cm [facility] Body weight 2021-02-06 19:29:00 75.297 kg [facility] BMI 2021-02-06 19:29:00 24.51 kg/m2 [facility] Respiratory Rate 2024-06-26 16:03:00 Lance Cifuentes BP Systolic 2024-06-26 16:03:00 150 mm[Hg] Lance Cifuentes BP Diastolic 2024-06-26 16:03:00 88 mm[Hg] Lance Ace Cifuentes Weight Measured 2024-06-26 16:03:00 160.60 pounds Lance Ace Cifuentes Height Measured 2024-06-26 16:03:00 66.14 inches Lance Ace Cifuentes Body Temperature 2024-06-26 16:03:00 98.10 degrees Lance Bello Esau Heart Rate 2024-06-26 16:03:00 86.00 /min Lance Cifuentes Heart rate 2022-09-23 17:30:00 76 /min [facility] Respiratory rate 2022-09-23 17:30:00 18 /min [facility] Oxygen saturation in Arterial blood by Pulse oximetry 2022-09-23 17:30:00 99 /min [facility] Systolic blood pressure 2022-09-23 17:21:00 127 mm[Hg] [facility] Diastolic blood pressure 2022-09-23 17:21:00 72 mm[Hg] [facility] Body temperature 2022-09-23 17:21:00 36.78 Tyesha [facility] Body height 2022-09-17 19:10:04 175.3 cm [facility] Body weight 2022-09-17 19:10:04 72.122 kg [facility] BMI 2022-09-17 19:10:04 23.48 kg/m2 [facility] Heart Rate 2019-04-13 17:00:00 [facility] Respitory Rate 2019-04-13 17:00:00 [facility] Systolic (mm Hg) 2019-04-13 17:00:00 [facility] Diastolic (mm Hg) 2019-04-13 17:00:00 [facility] Temperature Oral (F) 2019-04-13 17:00:00 98.4 F [facility] Temperature Oral (F) 2019-04-13 12:55:00 97.4 F [facility] Heart Rate 2019-04-13 12:55:00 [facility] Systolic (mm Hg) 2019-04-13 12:55:00 [facility] Diastolic (mm Hg) 2019-04-13 12:55:00 [facility] Respitory Rate 2019-04-13 12:55:00 [facility] Heart Rate 2019-04-13 08:38:00 [facility] Respitory Rate 2019-04-13 08:38:00 [facility] Temperature Oral (F) 2019-04-13 08:38:00 97.7 F [facility] Systolic (mm Hg) 2019-04-13 08:38:00 [facility] Diastolic (mm Hg) 2019-04-13 08:38:00 [facility] Weight 2019-04-11 19:58:00 [facility] BMI Calculated 2019-04-11 19:58:00 [facility] Height 2019-04-11 19:58:00 177.8 cm [facility] Procedures Procedure Date / Time Performed Performing Clinician Source BYPASS 3 COR ART FROM AORTA WITH AUTOL VN, OPEN AP 2024-10-21 00:00:00 CHAAB.01 [facility] EXCISION OF LEFT SAPHENOUS VEIN, PERC ENDO APPROAC 2024-10-21 00:00:00 CHAAB.01 [facility] EXCISION OF RIGHT SAPHENOUS VEIN, PERC ENDO APPROA 2024-10-21 00:00:00 CHAAB.01 [facility] BYPASS 1 COR ART FROM L INT MAMMARY, OPEN APPROACH 2024-10-21 00:00:00 CHAAB.01 [facility] EXCISION OF LEFT ATRIAL APPENDAGE, OPEN APPROACH 2024-10-21 00:00:00 CHAAB.01 [facility] PERFORMANCE OF CARDIAC OUTPUT, CONTINUOUS 2024-10-21 00:00:00 CHAAB.01 [facility] MEASURE OF CARDIAC SAMPL PRESSURE, L HEART, PERC 2024-10-16 00:00:00 SHABA.01 [facility] FLUOROSCOPY OF MULT COR ART USING L OSM CONTRAST 2024-10-16 00:00:00 SHABA.01 [facility] POCT GLUCOSE (AUTOMATED) 2024-06-14 03:52:00 Carmela Tiwari [facility] X-RAY OF CHEST 2 VIEW 2024-03-31 00:00:00 [facility] EXTERNAL PROVIDER RECORDS 2022-11-07 06:01:00 Do ctor Unassigned, [place] [facility] EXTERNAL PROVIDER RECORDS 2022-10-12 06:01:00 Do ctor Unassigned, [place] [facility] MR BRAIN WO CONTRAST 2022-10-03 17:07:00 Johana Young [facility] THYROID STIMULATING HORMONE 2022-10-02 02:04:00 Johana Young [facility] VITAMIN B12, LEVEL 2022-10-02 02:04:00 [facility] 2022-10-02 02:04:00 Johana Young [facility] AMMONIA, PLASMA 2022-10-01 11:14:00 Ruddy Kim [facility] ETHANOL 2022-10-01 11:14:00 Ruddy Kim [facility] AMMONIA, PLASMA 2022-10-01 11:14:00 [facility] ETHANOL 2022-10-01 11:14:00 JulioRuddy [facility] BASIC METABOLIC PANEL (NA, K, CL, CO2, GLUCOSE, BUN, CREATININE, CA) 2022-10-01 11:11:00 Julio [facility] CBC WITH DIFF 2022-10-01 11:11:00 Ruddy Kim [facility] BASIC METABOLIC PANEL (NA, K, CL, CO2, GLUCOSE, BUN, CREATININE, CA) 2022-10-01 11:11:00 Julio [facility] CBC WITH DIFF 2022-10-01 11:11:00 Julio Rudyd [facility] MRSA / MSSA SCREEN BY PCR, [facility] 2022-10-01 11:09:00 Julio [facility] MRSA / MSSA SCREEN BY PCR, [facility] 2022-10-01 11:09:00 Julio [facility] CT HEAD WO CONTRAST 2022-10-01 05:56:05 Ruddy Kim [facility] CT HEAD WO CONTRAST 2022-10-01 05:56:05 Ruddy Kim [facility] CARDIAC CATHETERIZATION 2022-10-01 04:55:38 Eugenio Padilla [facility] CARDIAC CATHETERIZATION 2022-10-01 04:55:38 Eugenio Padilla [facility] CATH PROCEDURE LOG 2022-10-01 04:40:33 Gabriela Padilla [facility] CATH PROCEDURE LOG 2022-10-01 04:40:33 Gabriela Padilla [facility] EKG-12 LEAD 2022-10-01 04:22:16 Regine [facility]el [facility] EKG-12 LEAD 2022-10-01 04:22:16 [facility] X[facility] CHEST 1 VW 2022-10-01 04:07:08 Regine Patel [facility] XR CHEST 1 VW 2022-10-01 04:07:08 Regine Patel [facility] LACTIC ACID WHOLE BLOOD 2022-10-01 03:35:00 Amanda [facility] LACTIC ACID WHOLE BLOOD 2022-10-01 03:35:00 Amanda [facility] TROPONIN I 2022-10-01 03:33:00 Regine Patel [facility] COMP. METABOLIC PANEL ([id number]) 2022-10-01 03:33:00 Amanda [facility] CBC WITH DIFF 2022-10-01 03:33:00 Regine Patel [facility] PROTHROMBIN TIME / INR 2022-10-01 03:33:00 Amanda [facility] D-DIMER 2022-10-01 03:33:00 Regine Patel [facility] ACTIVATED PARTIAL THRMPLAS CAROL 2022-10-01 03:33:00 Amanda [facility] N-TERMINAL PRO-BNP 2022-10-01 03:33:00 [facility] (ID NOW RAPID TESTING) 2022-10-01 03:33:00 Amanda [facility] LAB ONLY COVID INTERPRETATION 2022-10-01 03:33:00 Amanda [facility] TROPONIN I 2022-10-01 03:33:00 Regine Patel [facility] COMP. METABOLIC PANEL ([id number]) 2022-10-01 03:33:00 Amanda [facility] CBC WITH DIFF 2022-10-01 03:33:00 [facility] PROTHROMBIN TIME / INR 2022-10-01 03:33:00 Amanda [facility] D-DIMER 2022-10-01 03:33:00 [facility] ACTIVATED PARTIAL THRMPLAS CAROL 2022-10-01 03:33:00 Amanda [facility] N-TERMINAL PRO-BNP 2022-10-01 03:33:00 [facility] (ID NOW RAPID TESTING) 2022-10-01 03:33:00 Regine Patel [facility] LAB ONLY COVID INTERPRETATION 2022-10-01 03:33:00 Regine Patel [facility] HB ECG ROUTINE & RHYTHM STRIP 2022-10-01 03:26:36 Regine Patel [facility] CRITICAL CARE 2022-10-01 03:20:00 AmandaRegine [facility] CRITICAL CARE 2022-10-01 03:20:00 AmandaRegine [facility] XR CHEST 1 VW 2022-09-26 16:21:00 Becky Mckee [facility] XR CHEST 1 VW 2022-09-26 16:21:00 Becky Mckee [facility] CARDIAC CATHETERIZATION 2022-09-24 18:42:52 Rambo Lawson [facility] CARDIAC CATHETERIZATION 2022-09-24 18:42:52 Rambo Lawson [facility] POCT ACT LOW RANGE 2022-09-24 17:58:00 Demarcus [facility] POCT ACT LOW RANGE 2022-09-24 17:58:00 Demarcus [facility] POCT ACT LOW RANGE 2022-09-24 17:06:00 Demarcus [facility] POCT ACT LOW RANGE 2022-09-24 17:06:00 Demarcus [facility] CATH PROCEDURE LOG 2022-09-24 16:50:45 Elijah Lawson [facility] CATH PROCEDURE LOG 2022-09-24 16:50:45 Elijah Lawson [facility] BASIC METABOLIC PANEL (NA, K, CL, CO2, GLUCOSE, BUN, CREATININE, CA) 2022-09-24 14:57:00 Amanda Westfall [facility] BASIC METABOLIC PANEL (NA, K, CL, CO2, GLUCOSE, BUN, CREATININE, CA) 2022-09-24 14:57:00 Amanda Westfall [facility] BASIC METABOLIC PANEL (NA, K, CL, CO2, GLUCOSE, BUN, CREATININE, CA) 2022-09-23 11:59:00 [facility]22-09-23 11:59:00 Keisha Espinoza [facility] CBC WITHOUT DIFF 2022-09-23 11:59:00 [facility] 2022-09-23 11:59:00 Keisha Espinoza [facility] BASIC METABOLIC PANEL (NA, K, CL, CO2, GLUCOSE, BUN, CREATININE, CA) 2022-09-23 11:59:00 [facility]FF 2022-09-23 11:59:00 [facility] MAGNESIUM 2022-09-23 11:59:00 Keisha Espinoza [facility] BASIC METABOLIC PANEL (NA, K, CL, CO2, GLUCOSE, BUN, CREATININE, CA) 2022-09-23 11:59:00 [facility] WITHOUT DIFF 2022-09-23 11:59:00 [facility] CBC WITHOUT DIFF 2022-09-22 11:24:00 [facility] BASIC METABOLIC PANEL (NA, K, CL, CO2, GLUCOSE, BUN, CREATININE, CA) 2022-09-22 11:24:00 [facility] 2022-09-22 11:24:00 Keisha Espinoza [facility] MAGNESIUM 2022-09-22 11:24:00 Keisha Espinoza [facility] BASIC METABOLIC PANEL (NA, K, CL, CO2, GLUCOSE, BUN, CREATININE, CA) 2022-09-22 11:24:00 [facility] WITHOUT DIFF 2022-09-22 11:24:00 [facility] MAGNESIUM 2022-09-22 11:24:00 Keisha Espinoza [facility] BASIC METABOLIC PANEL (NA, K, CL, CO2, GLUCOSE, BUN, CREATININE, CA) 2022-09-22 11:24:00 Keisha Espinoza [facility] CBC WITHOUT DIFF 2022-09-22 11:24:00 Keisha Espinoza [facility] POCT GLUCOSE (AUTOMATED) 2022-09-21 22:47:00 Abu Ather ah, [facility] POCT GLUCOSE (AUTOMATED) 2022-09-21 22:47:00 Abu Ather ah, [facility] POCT GLUCOSE (AUTOMATED) 2022-09-21 22:47:00 Abu Ather ah, [facility] BODY FLUID MANUAL DIFF 2022-09-21 19:37:00 Tarik Ewing [facility] T.PROTEIN BODY FLUID 2022-09-21 19:37:00 Jeana Ewing [facility] GLUCOSE BODY FLUID 2022-09-21 19:37:00 Jeana Ewing [facility] LDH TOTAL BODY FLUID 2022-09-21 19:37:00 Jeana Ewing [facility] GLUCOSE BODY FLUID 2022-09-21 19:37:00 Jeana Ewing [facility] T.PROTEIN BODY FLUID 2022-09-21 19:37:00 Jeana Ewing [facility] BODY FLUID DIRECT COUNT 2022-09-21 19:37:00 Elissa Ewing [facility] LDH TOTAL BODY FLUID 2022-09-21 19:37:00 Jeana Ewing [facility] GLUCOSE BODY FLUID 2022-09-21 19:37:00 Jeana Ewing [facility] T.PROTEIN BODY FLUID 2022-09-21 19:37:00 Jeana Ewing [facility] BODY FLUID DIRECT COUNT 2022-09-21 19:37:00 Elissa Ewing [facility] LDH TOTAL BODY FLUID 2022-09-21 19:37:00 Jeana Ewing [facility] IR THORACENTESIS WITH IMAGING 2022-09-21 19:28:00 Jeana Ewing [facility] IR THORACENTESIS WITH IMAGING 2022-09-21 19:28:00 Jeana Ewing [facility] IR THORACENTESIS WITH IMAGING 2022-09-21 19:28:00 Jeana Ewing [facility] CT CHEST PULMONARY ANGIOGRAM 2022-09-21 15:47:07 Demarcus [facility] CT CHEST PULMONARY ANGIOGRAM 2022-09-21 15:47:07 Demarcus [facility] CT CHEST PULMONARY ANGIOGRAM 2022-09-21 15:47:07 Demarcus [facility] BASIC METABOLIC PANEL (NA, K, CL, CO2, GLUCOSE, BUN, CREATININE, CA) 2022-09-20 20:36:00 Jeana Ewing [facility] PROTHROMBIN TIME / INR 2022-09-20 20:36:00 Tarik Ewing [facility] LACTATE DEHYDROGENASE 2022-09-20 20:36:00 Wagner Ewing [facility] LACTATE DEHYDROGENASE 2022-09-20 20:36:00 Wagner Ewing [facility] BASIC METABOLIC PANEL (NA, K, CL, CO2, GLUCOSE, BUN, CREATININE, CA) 2022-09-20 20:36:00 Jeana Ewing [facility] PROTHROMBIN TIME / INR 2022-09-20 20:36:00 Tarik Ewing [facility] LACTATE DEHYDROGENASE 2022-09-20 20:36:00 Wagner Ewing [facility] BASIC METABOLIC PANEL (NA, K, CL, CO2, GLUCOSE, BUN, CREATININE, CA) 2022-09-20 20:36:00 Jeana Ewing [facility] PROTHROMBIN TIME / INR 2022-09-20 20:36:00 Tarik Ewing [facility] POCT GLUCOSE (AUTOMATED) 2022-09-20 03:41:00 Abu Ather ah, [facility] POCT GLUCOSE (AUTOMATED) 2022-09-20 03:41:00 Abu Ather ah, [facility] POCT GLUCOSE (AUTOMATED) 2022-09-20 03:41:00 Abu Ather ah, [facility] CBC WITH DIFF 2022-09-19 11:19:00 [facility] BASIC METABOLIC PANEL (NA, K, CL, CO2, GLUCOSE, BUN, CREATININE, CA) 2022-09-19 11:19:00 Evy [facility] N-TERMINAL PRO-BNP 2022-09-19 11:19:00 Jeana Ewing [facility] BASIC METABOLIC PANEL (NA, K, CL, CO2, GLUCOSE, BUN, CREATININE, CA) 2022-09-19 11:19:00 Demarcus [facility] CBC WITH DIFF 2022-09-19 11:19:00 [facility] N-TERMINAL PRO-BNP 2022-09-19 11:19:00 Jeana Ewing [facility] BASIC METABOLIC PANEL (NA, K, CL, CO2, GLUCOSE, BUN, CREATININE, CA) 2022-09-19 11:19:00 Demarcus [facility] CBC WITH DIFF 2022-09-19 11:19:00 [facility] N-TERMINAL PRO-BNP 2022-09-19 11:19:00 Jeana Ewing [facility] XR CHEST 1 2022-09-18 09:32:00 Nargis Mace [facility] XR CHEST 1 2022-09-18 09:32:00 Nargis Mace [facility] XR CHEST 1 2022-09-18 09:32:[address] [facility] ACUTE CARE ARTERIAL BLOOD GAS 2022-09-18 08:51:00 Nargis Mace [facility] ACUTE CARE ARTERIAL BLOOD GAS 2022-09-18 08:51:00 Nargis Mace [facility] ACUTE CARE ARTERIAL BLOOD GAS 2022-09-18 08:51:00 Nargis Mace [facility] EKG-12 LEAD 2022-09-18 07:40[facility]05 [facility] 2022-09-17 19:57:10 Lawson[facility] 2022-09-17 19:57:10 LawsonRambo ye [facility] CARDIAC CATHETERIZATION 2022-09-17 19:57:10 LawsonRambo ye [facility] CARDIAC CATHETERIZATION 2022-09-17 19:57:10 LawsonRambo [facility] CARDIAC CATHETERIZATION 2022-09-17 19:57:10 RennyRambo [facility] CARDIAC CATHETERIZATION 2022-09-17 19:57:10 LawsonRambo [facility] CARDIAC CATHETERIZATION 2022-09-17 19:57:10 LawsonRambo [facility] CARDIAC CATHETERIZATION 2022-09-17 19:57:10 Renny Doana [facility] CATH PROCEDURE LOG 2022-09-17 19:34:19 Renny [facility] CATH PROCEDURE LOG 2022-09-17 19:34:19 Renny [facility] POCT GLUCOSE (AUTOMATED) 2022-09-17 06:32:00 Abu Ather ah, [facility] POCT GLUCOSE (AUTOMATED) 2022-09-17 06:32:00 Abu Ather ah, [facility] POCT GLUCOSE (AUTOMATED) 2022-09-17 06:32:00 Abu Ather ah, [facility] POCT GLUCOSE (AUTOMATED) 2022-09-17 06:32:00 Abu Ather ah, [facility] BASIC METABOLIC PANEL (NA, K, CL, CO2, GLUCOSE, BUN, CREATININE, CA) 2022-09-16 11:39:00 Demarcus [facility] CBC WITH DIFF 2022-09-16 11:39:00 Demarcus [facility] CBC WITH DIFF 2022-09-16 11:39:00 Demarcus [facility] BASIC METABOLIC PANEL (NA, K, CL, CO2, GLUCOSE, BUN, CREATININE, CA) 2022-09-16 11:39:00 Demarcus [facility] BASIC METABOLIC PANEL (NA, K, CL, CO2, GLUCOSE, BUN, CREATININE, CA) 2022-09-16 11:39:00 Zachariah Tracy [facility] CBC WITH DIFF 2022-09-16 11:39:[address] [facility] BASIC METABOLIC PANEL (NA, K, CL, CO2, GLUCOSE, BUN, CREATININE, CA) 2022-09-16 11:39:00 [facility] 2022-09-16 11:39:[address] [facility] TROPONIN I 2022-09-15 22:45:00 TenaimaimZachariah henderson [facility] TROPONIN I 2022-09-15 22:45:00 TenaimaimZachariah henderson [facility] TROPONIN I 2022-09-15 22:45:00 Zachariah Tracy [facility] TROPONIN I 2022-09-15 22:45:00 Zachariah Tracy [facility] TRANSTHORACIC ECHO (TTE) COMPLETE 2022-09-15 21:32:30 Anat Rodriguez [facility] TRANSTHORACIC ECHO (TTE) COMPLETE 2022-09-15 21:32:30 Anat Rodriguez [facility] TRANSTHORACIC ECHO (TTE) COMPLETE 2022-09-15 21:32:30 Anat Rodriguez [facility] TRANSTHORACIC ECHO (TTE) COMPLETE 2022-09-15 21:32:30 Anat Rodriguez [facility] TROPONIN I 2022-09-15 15:29:00 TenaimaimGela hendersony [facility] TROPONIN I 2022-09-15 15:29:00 TenaimaimGela hendersony [facility] TROPONIN I 2022-09-15 15:29:00 TenaimaimGela hendersony [facility] TROPONIN I 2022-09-15 15:29:00 Zachariah Tracy [facility] CT THORAX WO CONTRAST 2022-09-15 14:21:58 Abu Atherah, [facility] CT THORAX WO CONTRAST 2022-09-15 14:21:58 Abu Atherah, [facility] CT THORAX WO CONTRAST 2022-09-15 14:21:58 Abu Atherah, [facility] CT THORAX WO CONTRAST 2022-09-15 14:21:58 Abu Atherah, [facility] RAPID INFLUENZA A/B 2022-09-15 07:38:00 Abu Atherah, Tao [facility] MRSA / MSSA SCREEN BY PCR, [facility] 2022-09-15 07:38:00 Abu Atherah, [facility] COVID-19 (ID NOW RAPID TESTING) 2022-09-15 07:38:00 Abu Atherah, [facility] LAB ONLY COVID INTERPRETATION 2022-09-15 07:38:00 Abu Atherah, [facility] MRSA / MSSA SCREEN BY PCR, [facility] 2022-09-15 07:38:00 Abu Atherah, [facility] RAPID INFLUENZA A/B 2022-09-15 07:38:00 Abu Atherah[facility] COVID-19 (ID NOW RAPID TESTING) 2022-09-15 07:38:00 Abu Atherah, [facility] LAB ONLY COVID INTERPRETATION 2022-09-15 07:38:00 Abu Atherah, [facility] RAPID INFLUENZA A/B 2022-09-15 07:38:00 Abu Atherah, Tao [facility] MRSA / MSSA SCREEN BY PCR, [facility] 2022-09-15 07:38:00 Abu Atherah, [facility] COVID-19 (ID NOW RAPID TESTING) 2022-09-15 07:38:00 Abu Atherah, [facility] LAB ONLY COVID INTERPRETATION 2022-09-15 07:38:00 Abu Atherah, [facility] RAPID INFLUENZA A/B 2022-09-15 07:38:00 Abu Atherah, Tao [facility] MRSA / MSSA SCREEN BY PCR, [facility] 2022-09-15 07:38:00 Anat [facility]aye [facility] COVID-19 (ID NOW RAPID TESTING) 2022-09-15 07:38:00 ana Jennifer [facility] LAB ONLY COVID INTERPRETATION 2022-09-15 07:38:00 ana Jennifer [facility] TROPONIN I 2022-09-15 07:36:00 Becky Mckee [facility] BASIC METABOLIC PANEL (NA, K, CL, CO2, GLUCOSE, BUN, CREATININE, CA) 2022-09-15 07:36:00 AbBecky Shaw [facility] CBC WITH DIFF 2022-09-15 07:36:00 Becky Mckee [facility] PROTHROMBIN TIME / INR 2022-09-15 07:36:00 Becky Mckee [facility] PROCALCITONIN 2022-09-15 07:36:00 Becky Mckee [facility] CBC WITH DIFF 2022-09-15 07:36:00 Anat Rodriguez [facility] BASIC METABOLIC PANEL (NA, K, CL, CO2, GLUCOSE, BUN, CREATININE, CA) 2022-09-15 07:36:00 Anat Rodriguez [facility] TROPONIN I 2022-09-15 07:36:00 Becky Mckee [facility] PROCALCITONIN 2022-09-15 07:36:00 Abu Jennifer Fawadjenna [facility] PROTHROMBIN TIME / INR 2022-09-15 07:36:00 Abu Jennifer [facility] TROPONIN I 2022-09-15 07:36:00 AbBecky Shaw [facility] BASIC METABOLIC PANEL (NA, K, CL, CO2, GLUCOSE, BUN, CREATININE, CA) 2022-09-15 07:36:00 Abu Jennifer [facility] CBC WITH DIFF 2022-09-15 07:36:00 Becky Mckee U [facility] PROTHROMBIN TIME / INR 2022-09-15 07:36:00 Becky Mckee [facility] PROCALCITONIN 2022-09-15 07:36:00 Becky Mckee [facility] TROPONIN I 2022-09-15 07:36:00 [facility] BASIC METABOLIC PANEL (NA, K, CL, CO2, GLUCOSE, BUN, CREATININE, CA) 2022-09-15 07:36:00 Becky Mckee [facility] CBC WITH DIFF 2022-09-15 07:36:00 Becky Mckee [facility] PROTHROMBIN TIME / INR 2022-09-15 07:36:00 Becky Mckee [facility] PROCALCITONIN 2022-09-15 07:36:00 Becky Mckee [facility] HB ECG ROUTINE & RHYTHM STRIP 2022-09-15 07:16:59 Becky Mckee [facility] HOSPITAL ADMISSION 2022-09-15 05:01:00 Doctor Un assigned, [place] [facility] ASSIGNMENT OF BENEFITS 2021-03-22 14:19:01 Docto r Unassigned, [place] [facility] XR LUMBAR SPINE 3 VW 2021-02-06 21:02:16 [facility] [place] [facility] [facility] Hemorrhoide[facility] rmann Resection<sup>1</sup> Lakeisha Hernandez Placement of Stent in Coronary Artery [facility] Surgical Biopsy of Lip [facility] Hemorrhoidectomy [facility] Encounters Start Date/Time End Date/Time Encounter Type Admission Type Attending Clinicians Care Facility Care Department Encounter ID Source 2019-04-11 18:42:00 Inpatient E [id number] 2024-10-14 23:21:00 2024-10-30 15:05:00 Inpatient Shyla Coronel HCACL INTE.02 [id number] [facility] 2024-10-01 09:40:00 2024-10-01 09:40:00 Outpatient BERNARDINO [facility] [id number] [facility] 2024-08-26 00:00:00 2024-08-26 00:00:00 Outpatient WOODY MARIN BELKIS QUEZADA [id number] [facility] 2024-08-14 00:00:00 2024-08-14 00:00:00 Outpatient TANIA WOODY QUEZADA [id number] [facility] 2024-08-04 07:00:00 2024-08-04 23:59:00 Outpatient JASVIRCATALINA [facility] JASMEET [id number] [facility] 2024-07-29 00:00:00 2024-07-29 00:00:00 Outpatient WOODY MARIN BELKIS QUEZADA [id number] [facility] 2024-07-01 00:00:00 2024-07-01 00:00:00 Outpatient JAMIA COOLEY [id number] [facility] 2024-06-26 16:01:28 2024-06-26 16:01:28 Outpatient SFA SFA [id number] Lance Cifuentes 2024-06-26 00:00:00 2024-06-26 00:00:00 Outpatient Visit SFA [id number] Lance Cifuentes 2024-06-13 22:01:00 2024-06-13 23:51:00 Emergency X CARMELA IZQUIERDO [facility] ERT [id number] [facility] 2024-06-13 22:01:00 2024-06-13 23:51:00 Emergency Carmela Izquierdo [facility] 1.2.840.114 350.1.13.10 4.2.7.2.686 [id number] [facility] 2024-04-16 13:08:00 2024-04-18 14:40:00 Inpatient CK ASHLEY [facility] CAR [id number] [facility] 2024-04-16 00:00:00 2024-04-16 23:59:00 Outpatient JASVIRCATALINA [facility] JASMEET [id number] [facility] 2024-03-31 00:00:00 2024-03-31 00:00:00 Liyah Young MD: [address], [place] [address] , Ph. P [place] - [facility] [place] [facility] [id number] [facility] 2024-02-13 00:00:00 2024-02-13 00:00:00 Outpatient BELKIS QUEZADA [id number] [facility] 2024-02-13 00:00:00 2024-02-13 00:00:00 Outpatient MELISSA DOMINGUEZ [id number] [facility] 2024-02-12 00:00:00 2024-02-12 00:00:00 Outpatient Hector_Zaira_Han LOPEZ_ [facility] [id number] [facility] 2023-11-23 00:00:00 2023-11-23 00:00:00 Outpatient WOODY MARIN [id number] [facility] 2023-11-22 00:00:00 2023-11-22 00:00:00 Outpatient WOODY MARIN [id number] [facility] 2023-09-26 14:30:00 2023-09-26 14:30:00 Outpatient BELKIS QUEZADA [id number] [facility] 2023-09-26 07:30:00 2023-09-26 07:30:00 Outpatient BELKIS QUEZADA [id number] [facility] 2023-09-19 15:20:00 2023-09-19 15:20:00 Outpatient LAB39 BELKIS QUEZADA [id number] [facility] Baltazary[facility]becca 2023-09-19 14:50:00 2023-09-19 14:50:00 Outpatient 39, HOLTER BELKIS QUEZADA [id number] [facility] 2023-09-19 13:50:00 2023-09-19 13:50:00 Outpatient JAMIA COOLEY [id number] [facility] 2023-09-19 13:50:00 2023-09-19 13:50:00 Outpatient LO Leon [id number] [facility] Baltazarrebecca 2023-09-17 10:00:00 2023-09-17 10:00:00 Outpatient PREZAS, WOODY QUEZAAD [id number] [facility] 2023-09-09 00:00:00 2023-09-09 00:00:00 Outpatient PREZAS, WOODY QUEZADA [id number] [facility] 2023-07-25 00:00:00 2023-07-25 00:00:00 Outpatient PREZAS, WOODY QUEZADA [id number] [facility] 2023-07-22 15:00:00 2023-07-22 15:00:00 Outpatient PREZAS, WOODY QUEZADA BELKIS [id number] [facility] 2023-07-01 00:00:00 2023-07-01 00:00:00 Outpatient PREZAS, WOODY QUEZADA [id number] [facility] 2023-06-28 00:00:00 2023-06-28 00:00:00 Outpatient PREZAS, WOODY QUEZADA [id number] [facility] 2023-06-21 10:00:00 2023-06-21 10:00:00 Outpatient PREZAS, WOODY QUEZADA BELKIS [id number] [facility] 2023-03-06 00:00:00 2023-03-06 00:00:[facility] 350.1.13.10 4.2.7.2.686 [id number] [facility] 2023-02-19 00:00:00 2023-02-19 00:00:00 Letter (Out) Declan [facility] .840.114 350.1.13.10 4.2.7.2.686 [id number] [facility] 2023-02-01 00:00:00 2023-02-01 00:00:00 Letter (Out) Jamil Manriquez [facility] 1.2.840.114 350.1.13.10 4.2.7.2.686 [id number] [facility] 2022-11-07 00:00:00 2022-11-07 00:00:00 Orders Only Doctor Unassigned, Harrington [facility] 1.2.840.114 350.1.13.10 4.2.7.2.686 [id number] [facility] 2022-10-12 00:00:00 2022-10-12 00:00:00 Orders Only Doctor Unassigned, Harrington [facility] 1.2.840.114 350.1.13.10 4.2.7.2.686 [id number] [facility] 2022-10-08 00:00:00 2022-10-08 00:00:00 Transition of Care Jena Bell PLARYAN 1.2.840.114 350.1.13.10 4.2.7.2.686 [id number] [facility] 2022-10-05 00:00:00 2022-10-05 00:00:00 Patient Secure Msg Doctor Unassigned, Harrington [facility] 1.2.840.114 350.1.13.10 4.2.7.2.686 [id number] [facility] 2022-09-30 21:21:00 2022-10-03 18:30:00 Inpatient X ISIAH KELLY TALHA [facility] [id number] [facility] 2022-09-30 21:21:00 2022-10-03 18:30:00 Hospital Encounter Regine Patel Leon Ghadai, Talha Matta, Atul [facility] 1.2.840.114 350.1.13.10 4.2.7.2.686 [id number] [facility] 2022-09-30 22:25:00 2022-10-01 01:25:00 Surgery Eugenio Padilla [facility] 1.2.840.114 350.1.13.10 4.2.7.2.686 [id number] [facility] 2022-09-27 00:00:00 2022-09-27 00:00:00 Transition of Care Emily Buchanan 1.2.840.114 350.1.13.10 4.2.7.2.686 [id number] [facility] 2022-09-15 01:36:00 2022-09-26 15:02:00 Inpatient U [facility] [id number] [facility] 2022-09-15 01:36:00 2022-09-26 15:02:00 Hospital Encounter Anat Rodriguez, Becky Keys, Emmett Kelly, Isiah [facility] ([facility] 1.2.840.114 350.1.13.10 4.2.7.2.686 [id number] [facility] 2022-09-24 10:00:00 2022-09-24 12:00:00 Surgery Lawson Elijah [facility] 1.2.840.114 350.1.13.10 4.2.7.2.686 [id number] [facility] 2022-09-17 14:30:00 2022-09-17 15:30:00 Surgery Renny Elijah 1.2.840.1 [id number] 3.104.2.7 .[id number] .8 [id number] [facility] 2022-09-17 00:00:00 2022-09-17 00:00:00 Letter (Out) Jamil Manriquez 1.2.840.1 [id number] 3.104.2.7 .[id number] .8 [id number] [facility] 2022-09-15 00:00:00 2022-09-15 00:00:00 Travel 1.2.840.1 [id number] 3.104.2.7 .[id number] .8 1.20.114 350.1.13.10 4.2.7.3.698 [id number] [facility] 2021-09-11 09:45:00 2021-09-11 09:45:00 Outpatient JAMIL GARRETT [facility] [id number] [facility] 2021-06-13 09:15:00 2021-06-13 09:15:00 Outpatient JAMIL GARRETT [facility] [id number] [facility] 2021-06-06 09:40:00 2021-06-06 09:40:00 Outpatient JEANA KRAMER [facility] [id number] [facility] 2021-03-22 10:15:00 2021-03-22 10:15:00 Outpatient JAMIL GARRETT [facility] [id number] [facility] 2021-03-22 09:19:58 2021-03-22 09:40:42 Office Visit Jamil Manriquez [facility] [address] 1..114 350.1.13.10 4.2.7.2.686 [id number] [facility] 2021-03-22 00:00:00 2021-03-22 00:00:00 Orders Only Doctor Unassigned, Harrington [facility] 1.0.114 350.1.13.10 4.2.7.2.686 [id number] [facility] 2021-03-14 00:00:00 2021-03-14 00:00:00 Telephone Declan Jamil [facility] [address] 1.114 350.1.13.10 4.2.7.2.686 [id number] [facility] 2021-03-09 13:15:00 2021-03-09 13:15:00 Outpatient JAMIL GARRETT [facility] [id number] [facility] 2021-03-09 12:57:56 2021-03-09 13:12:56 Office Visit Declan [facility] 1.114 350.1.13.10 4.2.7.2.686 [id number] [facility] 2021-02-08 00:00:00 2021-02-08 00:00:00 [facility]..114 350.1.13.10 4.2.7.2.686 [id number] [facility] 2021-02-06 15:35:26 2021-02-06 23:59:00 Hospital Encounter Mitch Hull [facility] 1..114 350.1.13.10 4.2.7.2.686 [id number] [facility] 2021-02-06 14:12:59 2021-02-06 14:42:59 Office Visit Mitch Hull Edame Manriquez [facility] [address] [facility] 1..114 350.1.13.10 4.2.7.2.686 [id number] [facility] 2021-02-06 14:30:00 2021-02-06 14:30:00 Outpatient JAMIL GARRETT [facility] [id number] [facility] 2020-04-10 05:39:08 2020-04-11 14:17:00 Outpatient ELIGIO CAMARENA [facility] [id number] [facility] 2019-04-11 19:57:00 2019-04-13 17:35:00 Inpatient Mecheo lorenza [facility] [id number] Minna simpson [facility] Results Test Description Test Time Test Comments Results Result Co mments Source BASIC METABOLIC [id number] 06:12:00* Test Item Value Reference Range Interpretation Comme nts SODIUM (test code = NA) 141 mEq/L 134-147 N POTASSIUM (test code = K) 3.9 mEq/L 3.4-5.0 N CHLORIDE (test code = CL) 105 mEq/L 100-108 N CARBON DIOXIDE (test code = CO2) 28 mEq/l 21-33 N ANION GAP (test code = GAP) 12 0-20 N GLUCOSE (test code = GLU) 124 mg/dL 77-141 N BLOOD UREA NITROGEN (test code = BUN) 19 mg/dL 7-25 N GLOMERULAR FILTRATION RATE (test code = GFR) 75.9 80-90 L The Glomerular Filtration Rate is a calculated parameterbased on serum Creatinine, patient age and sex. GFR valuesless than 60 mL/min/1.73 square meters are indicative ofChronic Kidney Disease. Values less than 15 mL/min/1.73square meters indicate Kidney failure. The calculation forGFR is based on the CKD-EPI (2020) calculation. This formulais race indifferent and is the recommended formula for GFRby the National Kidney Foundation for Adults.The GFR will not calculate if the sex is unknown or if thepatient's age is <18 years. CREATININE (test code = CREAT) 1.1 mg/dL 0.6-1.3 N CALCIUM (test code = CA) 8.7 mg/dL 8.0-10.5 N [id number] 06:12:00* Test Item Value Reference Range Interpretation Comme nts MAGNESIUM (test code = MAG) 2.08 mg/dL 1.6-2.6 N BASIC METABOLIC [id number] 04:45:00* Test Item Value Reference Range Interpretation Comme nts SODIUM (test code = NA) 141 mEq/L 134-147 N POTASSIUM (test code = K) 4.1 mEq/L 3.4-5.0 N CHLORIDE (test code = CL) 106 mEq/L 100-108 N CARBON DIOXIDE (test code = CO2) 28 mEq/l 21-33 N ANION GAP (test code = GAP) 11 0-20 N GLUCOSE (test code = GLU) 103 mg/dL 77-141 N BLOOD UREA NITROGEN (test code = BUN) 17 mg/dL 7-25 N GLOMERULAR FILTRATION RATE (test code = GFR) 85.1 80-90 N The Glomerular Filtration Rate is a calculated parameterbased on serum Creatinine, patient age and sex. GFR valuesless than 60 mL/min/1.73 square meters are indicative ofChronic Kidney Disease. Values less than 15 mL/min/1.73square meters indicate Kidney failure. The calculation forGFR is based on the CKD-EPI (2020) calculation. This formulais race indifferent and is the recommended formula for GFRby the National Kidney Foundation for Adults.The GFR will not calculate if the sex is unknown or if thepatient's age is <18 years. CREATININE (test code = CREAT) 1.0 mg/dL 0.6-1.3 N CALCIUM (test code = CA) 8.5 mg/dL 8.0-10.5 N [id number] 04:45:00* Test Item Value Reference Range Interpretation Comme nts MAGNESIUM (test code = MAG) 1.96 mg/dL 1.6-2.6 N CBC W/AUTO [id number] 04:25:00* Test Item Value Reference Range Interpretation Comme nts WHITE BLOOD CELL (test code = WBC) 11.7 x10 3/uL 4.5-11.0 H RED BLOOD CELL (test code = RBC) 2.64 x10 6/uL 4.00-5.60 L HEMOGLOBIN (test code = HGB) 7.5 g/dL 12.5-16.9 L HEMATOCRIT (test code = HCT) 24.1 % 37.5-50.7 L MEAN CELL VOLUME (test code = MCV) 91.3 fL 81.0-99.0 N MEAN CELL HGB (test code = MCH) 28.4 pg 27.0-33.0 N MEAN CELL HGB CONCETRATION (test code = MCHC) 31.1 g/dL 33.0-37.0 L RED CELL DISTRIBUTION WIDTH CV (test code = RDW) 15.2 % 11.5-14.5 H RED CELL DISTRIBUTION WIDTH SD (test code = RDW-SD) 48.4 fL 37.0-54.0 N PLATELET COUNT (test code = PLT) 542 x10 3/uL 150-400 H MEAN PLATELET VOLUME (test c ode = MPV) 8.6 fL 7.0-9.0 N NEUTROPHIL % (test code = NT%) 67.3 % 56.0-77.0 N IMMATURE GRANULOCYTE % (test code = IG%) 1.2 % 0.0-2.0 N LYMPHOCYTE % (test code = LY%) 18.9 % 14.0-32.0 N MONOCYTE % (test code = MO%) 8.4 % 4.8-9.0 N EOSINOPHIL % (test code = EO%) 3.6 % 0.3-3.7 N BASOPHIL % (test code = BA%) 0.6 % 0.0-2.0 N NUCLEATED RBC % (test code = NRBC%) 0.2 % 0-0 H NEUTROPHIL # (test code = NT#) 7.88 x10 3/uL 2.0-7.6 H IMMATURE GRANULOCYTE # (test code = IG#) 0.14 x10 3/uL 0.00-0.03 H LYMPHOCYTE # (test code = LY#) 2.22 x10 3/uL 1.0-3.8 N MONOCYTE # (test code = MO#) 0.99 x10 3/uL 0.1-0.8 H EOSINOPHIL # (test code = EO#) 0.42 x10 3/uL 0.0-0.2 H BASOPHIL # (test code = BA#) 0.07 x10 3/uL 0.0-0.2 N NUCLEATED RBC # (test code = NRBC#) 0.02 x10 3/uL 0.0-0.1 N BASIC METABOLIC [id number] 01:58:00* Test Item Value Reference Range Interpretation Comme nts SODIUM (test code = NA) 142 mEq/L 134-147 N POTASSIUM (test code = K) 4.0 mEq/L 3.4-5.0 N CHLORIDE (test code = CL) 111 mEq/L 100-108 H CARBON DIOXIDE (test code = CO2) 25 mEq/l 21-33 N ANION GAP (test code = GAP) 10 0-20 N GLUCOSE (test code = GLU) 102 mg/dL 77-141 N BLOOD UREA NITROGEN (test code = BUN) 17 mg/dL 7-25 N GLOMERULAR FILTRATION RATE (test code = GFR) 100.1 80-90 H The Glomerular Filtration Rate is a calculated parameterbased on serum Creatinine, patient age and sex. GFR valuesless than 60 mL/min/1.73 square meters are indicative ofChronic Kidney Disease. Values less than 15 mL/min/1.73square meters indicate Kidney failure. The calculation forGFR is based on the CKD-EPI (2020) calculation. This formulais race indifferent and is the recommended formula for GFRby the National Kidney Foundation for Adults.The GFR will not calculate if the sex is unknown or if thepatient's age is <18 years. CREATININE (test code = CREAT) 0.8 mg/dL 0.6-1.3 N CALCIUM (test code = CA) 8.4 mg/dL 8.0-10.5 N [id number] 01:58:00* Test Item Value Reference Range Interpretation Comme nts MAGNESIUM (test code = MAG) 1.82 mg/dL 1.6-2.6 N CBC W/AUTO [id number] 01:43:00* Test Item Value Reference Range Interpretation Comme nts WHITE BLOOD CELL (test code = WBC) 13.0 x10 3/uL 4.5-11.0 H RED BLOOD CELL (test code = RBC) 2.38 x10 6/uL 4.00-5.60 L HEMOGLOBIN (test code = HGB) 6.9 g/dL 12.5-16.9 L HEMATOCRIT (test code = HCT) 21.9 % 37.5-50.7 L MEAN CELL VOLUME (test code = MCV) 92.0 fL 81.0-99.0 N MEAN CELL HGB (test code = MCH) 29.0 pg 27.0-33.0 N MEAN CELL HGB CONCETRATION (test code = MCHC) 31.5 g/dL 33.0-37.0 L RED CELL DISTRIBUTION WIDTH CV (test code = RDW) 14.8 % 11.5-14.5 H RED CELL DISTRIBUTION WIDTH SD (test code = RDW-SD) 47.9 fL 37.0-54.0 N PLATELET COUNT (test code = PLT) 465 x10 3/uL 150-400 H MEAN PLATELET VOLUME (test c ode = MPV) 8.9 fL 7.0-9.0 N NEUTROPHIL % (test code = NT%) 66.1 % 56.0-77.0 N IMMATURE GRANULOCYTE % (test code = IG%) 1.3 % 0.0-2.0 N LYMPHOCYTE % (test code = LY%) 18.3 % 14.0-32.0 N MONOCYTE % (test code = MO%) 10.0 % 4.8-9.0 H EOSINOPHIL % (test code = EO%) 3.9 % 0.3-3.7 H BASOPHIL % (test code = BA%) 0.4 % 0.0-2.0 N NUCLEATED RBC % (test code = NRBC%) 0.3 % 0-0 H NEUTROPHIL # (test code = NT#) 8.56 x10 3/uL 2.0-7.6 H IMMATURE GRANULOCYTE # (test code = IG#) 0.17 x10 3/uL 0.00-0.03 H LYMPHOCYTE # (test code = LY#) 2.37 x10 3/uL 1.0-3.8 N MONOCYTE # (test code = MO#) 1.29 x10 3/uL 0.1-0.8 H EOSINOPHIL # (test code = EO#) 0.51 x10 3/uL 0.0-0.2 H BASOPHIL # (test code = BA#) 0.05 x10 3/uL 0.0-0.2 N NUCLEATED RBC # (test code = NRBC#) 0.04 x10 3/uL 0.0-0.1 N CBC W/AUTO [id number] 02:54:00* Test Item Value Reference Range Interpretation Comme nts WHITE BLOOD CELL (test code = WBC) 11.2 x10 3/uL 4.5-11.0 H RED BLOOD CELL (test code = RBC) 2.23 x10 6/uL 4.00-5.60 L HEMOGLOBIN (test code = HGB) 6.3 g/dL 12.5-16.9 LL Critical result called to ROGER DAVIDSON RNby [id number] at 0254 10/27/24Nurse read back result and tech confirmed it's correct? Y ---- HEMATOCRIT (test code = HCT) 20.4 % 37.5-50.7 L MEAN CELL VOLUME (test code = MCV) 91.5 fL 81.0-99.0 MEAN CELL HGB (test code = MCH) 28.3 pg 27.0-33.0 N MEAN CELL HGB CONCETRATION (test code = MCHC) 30.9 g/dL 33.0-37.0 L RED CELL DISTRIBUTION WIDTH CV (test code = RDW) 14.6 % 11.5-14.5 H RED CELL DISTRIBUTION WIDTH SD (test code = RDW-SD) 48.5 fL 37.0-54.0 N PLATELET COUNT (test code = PLT) 373 x10 3/uL 150-400 N MEAN PLATELET VOLUME (test code = MPV) 9.1 fL 7.0-9.0 H NEUTROPHIL % (test code = NT%) 64.2 % 56.0-77.0 N IMMATURE GRANULOCYTE % (test code = IG%) 1.7 % 0.0-2.0 N LYMPHOCYTE % (test code = LY%) 19.4 % 14.0-32.0 N MONOCYTE % (test code = MO%) 10.5 % 4.8-9.0 H EOSINOPHIL % (test code = EO%) 3.9 % 0.3-3.7 H BASOPHIL % (test code = BA%) 0.3 % 0.0-2.0 N NUCLEATED RBC % (test code = NRBC%) 0.6 % 0-0 H NEUTROPHIL # (test code = NT#) 7.21 x10 3/uL 2.0-7.6 N IMMATURE GRANULOCYTE # (test code = IG#) 0.19 x10 3/uL 0.00-0.03 H LYMPHOCYTE # (test code = LY#) 2.18 x10 3/uL 1.0-3.8 N MONOCYTE # (test code = MO#) 1.18 x10 3/uL 0.1-0.8 H EOSINOPHIL # (test code = EO#) 0.44 x10 3/uL 0.0-0.2 H BASOPHIL # (test code = BA#) 0.03 x10 3/uL 0.0-0.2 N NUCLEATED RBC # (test code = NRBC#) 0.07 x10 3/uL 0.0-0.1 N BASIC METABOLIC [id number] 02:54:00* Test Item Value Reference Range Interpretation Comme nts SODIUM (test code = NA) 142 mEq/L 134-147 N POTASSIUM (test code = K) 4.2 mEq/L 3.4-5.0 N CHLORIDE (test code = CL) 109 mEq/L 100-108 H CARBON DIOXIDE (test code = CO2) 25 mEq/l 21-33 N ANION GAP (test code = GAP) 12 0-20 N GLUCOSE (test code = GLU) 108 mg/dL 77-141 N BLOOD UREA NITROGEN (test code = BUN) 18 mg/dL 7-25 N GLOMERULAR FILTRATION RATE (test code = GFR) 100.1 80-90 H The Glomerular Filtration Rate is a calculated parameterbased on serum Creatinine, patient age and sex. GFR valuesless than 60 mL/min/1.73 square meters are indicative ofChronic Kidney Disease. Values less than 15 mL/min/1.73square meters indicate Kidney failure. The calculation forGFR is based on the CKD-EPI (2020) calculation. This formulais race indifferent and is the recommended formula for GFRby the National Kidney Foundation for Adults.The GFR will not calculate if the sex is unknown or if thepatient's age is <18 years. CREATININE (test code = CREAT) 0.8 mg/dL 0.6-1.3 N CALCIUM (test code = CA) 8.0 mg/dL 8.0-10.5 N [id number] 02:54:00* Test Item Value Reference Range Interpretation Comme nts MAGNESIUM (test code = MAG) 2.06 mg/dL 1.6-2.6 N [id number] 13:06:00* Test Item Value Reference Range Interpretation Comments SURGICAL (test code = SR) RUN DATE: 10/26/24 [place] - LAB PAGE 1 RUN TIME: 1306 Specimen Inquiry RUN USER: INTERFACE PATIENT: [id number] AGE/SX: 63/M ROOM: [facility] RE10/14/24REG DR: Shyla Zepeda MD : 62 BED: 1 DIS: STATUS: ADM IN TLOC: SPEC #: [id number] RECD: 10/22/24 STATUS: SOUCarla REQ #: [id number] MEENA: 10/21/24- SUBM DR: Shyla Zepeda MD ENTERED: 10/22/24-1250 SP TYPE: SURGICAL OTHR DR: No Primary or Family Physician Self Referred Deniz Richardson MD, Curtis S DO Kumar, Mohan X MDORDERED: [id number], ANATOMIC SPEC COPIES TO: No Primary or Family Physician Self Referred Shyla Zepeda MD [address] [place] [phone] Deniz Richardson MD [address] [place] [phone] Vijay Olvera [phone] [place] [address] [address] [facility] [address] [place] [phone] PROCEDURES: [id number] (10/22/24-1251) TISSUES: A. ATRIUM - LEFT ATRIAL APPENDAGE CLINICAL HISTORY SAME CONTINUED ON NEXT PAGE RUN DATE: 10/26/24 [facility] PAGE 2 RUN TIME: 1306 Specimen Inquiry RUN USER: INTERFACE SPEC #: [id number] PATIENT: CLEO LONG #[id number] (Continued) - FINAL DIAGNOSIS Heart, left atrial appendage, wedge biopsy: - Myocardium with focal mild ischemic change. GROSS DESCRIPTION Received in formalin labeled "left atrial appendage" is a 3.2 x 2 x 0.8 cm lowe-red atrialappendage. The specimen is serially sectioned and no gross lesions are identified. Electrical Project Manager sections are submitted in cassette A. Technical component performed at [address], [place] [address] Unless gross only, the diagnosis is based upon microscopic examination.Immunohistochemistry: This test was developed and its performance characteristicsdetermined by this laboratory. It has not been approved nor does it need approvalby the [place] FDA. Appropriate positive and negative controls are reviewed and judgedto be acceptable for performedimmunohistochemistry and/or special stains. This laboratoryis certified under the Clinical Laboratory Improvement Amendments (CLIA-88) as [facility]. MICROSCOPIC DESCRIPTION A microscopic examination was performed. CLINICAL INFORMATION CORONARY ARTERY DISEASE Signed SIGNATURE ON FILE Rekha Sierra 10/26/24 1306 END OF REPORT BASIC METABOLIC [id number] 04:01:00* Test Item Value Reference Range Interpretation Comme nts SODIUM (test code = NA) 143 mEq/L 134-147 N POTASSIUM (test code = K) 3.9 mEq/L 3.4-5.0 N CHLORIDE (test code = CL) 110 mEq/L 100-108 H CARBON DIOXIDE (test code = CO2) 26 mEq/l 21-33 N ANION GAP (test code = GAP) 11 0-20 N GLUCOSE (test code = GLU) 124 mg/dL 77-141 N BLOOD UREA NITROGEN (test code = BUN) 19 mg/dL 7-25 N GLOMERULAR FILTRATION RATE (test code = GFR) 96.6 80-90 H The Glomerular Filtration Rate is a calculated parameterbased on serum Creatinine, patient age and sex. GFR valuesless than 60 mL/min/1.73 square meters are indicative ofChronic Kidney Disease. Values less than 15 mL/min/1.73square meters indicate Kidney failure. The calculation forGFR is based on the CKD-EPI (202) calculation. This formulais race indifferent and is the recommended formula for GFRby the National Kidney Foundation for Adults.The GFR will not calculate if the sex is unknown or if thepatient's age is <18 years. CREATININE (test code = CREAT) 0.9 mg/dL 0.6-1.3 N CALCIUM (test code = CA) 7.8 mg/dL 8.0-10.5 L [id number] 04:01:00* Test Item Value Reference Range Interpretation Comme nts MAGNESIUM (test code = MAG) 2.09 mg/dL 1.6-2.6 N CBC W/AUTO [id number] 03:44:00* Test Item Value Reference Range Interpretation Comme nts WHITE BLOOD CELL (test code = WBC) 10.8 x10 3/uL 4.5-11.0 N RED BLOOD CELL (test code = RBC) 2.25 x10 6/uL 4.00-5.60 L HEMOGLOBIN (test code = HGB) 6.5 g/dL 12.5-16.9 L HEMATOCRIT (test code = HCT) 21.4 % 37.5-50.7 L MEAN CELL VOLUME (test code = MCV) 95.1 fL 81.0-99.0 MEAN CELL HGB (test code = MCH) 28.9 pg 27.0-33.0 N MEAN CELL HGB CONCETRATION (test code = MCHC) 30.4 g/dL 33.0-37.0 L RED CELL DISTRIBUTION WIDTH CV (test code = RDW) 14.4 % 11.5-14.5 N RED CELL DISTRIBUTION WIDTH SD (test code = RDW-SD) 49.1 fL 37.0-54.0 N PLATELET COUNT (test code = PLT) 371 x10 3/uL 150-400 N MEAN PLATELET VOLUME (test c ode = MPV) 9.5 fL 7.0-9.0 H NEUTROPHIL % (test code = NT%) 69.2 % 56.0-77.0 N IMMATURE GRANULOCYTE % (test code = IG%) 1.0 % 0.0-2.0 N LYMPHOCYTE % (test code = LY%) 15.2 % 14.0-32.0 N MONOCYTE % (test code = MO%) 10.0 % 4.8-9.0 H EOSINOPHIL % (test code = EO%) 4.1 % 0.3-3.7 H BASOPHIL % (test code = BA%) 0.5 % 0.0-2.0 N NUCLEATED RBC % (test code = NRBC%) 0.4 % 0-0 H NEUTROPHIL # (test code = NT#) 7.44 x10 3/uL 2.0-7.6 N IMMATURE GRANULOCYTE # (test code = IG#) 0.11 x10 3/uL 0.00-0.03 H LYMPHOCYTE # (test code = LY#) 1.63 x10 3/uL 1.0-3.8 N MONOCYTE # (test code = MO#) 1.08 x10 3/uL 0.1-0.8 H EOSINOPHIL # (test code = EO#) 0.44 x10 3/uL 0.0-0.2 H BASOPHIL # (test code = BA#) 0.05 x10 3/uL 0.0-0.2 N NUCLEATED RBC # (test code = NRBC#) 0.04 x10 3/uL 0.0-0.1 N GLUCOSE [id number] 17:22:00* Test Item Value Reference Range Interpretation Comme nts GLUCOSE BEDSIDE (test code = GLUBED) 112 MG/DL 70-110 H Performed by cer tified 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 at [facility] CBC W/AUTO [id number] 04:37:00* Test Item Value Reference Range Interpretation Comme nts WHITE BLOOD CELL (test code = WBC) 12.2 x10 3/uL 4.5-11.0 H RED BLOOD CELL (test code = RBC) 2.18 x10 6/uL 4.00-5.60 L HEMOGLOBIN (test code = HGB) 6.4 g/dL 12.5-16.9 LL Critical result called to WILMA Espinoza [id number] at 0437 10/25/24Nurse read back result and tech confirmed it's correct? Y ---- HEMATOCRIT (test code = HCT) 19.9 % 37.5-50.7 L MEAN CELL VOLUME (test code = MCV) 91.3 fL 81.0-99.0 MEAN CELL HGB (test code = MCH) 29.4 pg 27.0-33.0 N MEAN CELL HGB CONCETRATION (test code = MCHC) 32.2 g/dL 33.0-37.0 L RED CELL DISTRIBUTION WIDTH CV (test code = RDW) 14.4 % 11.5-14.5 N RED CELL DISTRIBUTION WIDTH SD (test code = RDW-SD) 47.2 fL 37.0-54.0 N PLATELET COUNT (test code = PLT) 297 x10 3/uL 150-400 N MEAN PLATELET VOLUME (test code = MPV) 9.5 fL 7.0-9.0 H NEUTROPHIL % (test code = NT%) 72.4 % 56.0-77.0 N IMMATURE GRANULOCYTE % (test code = IG%) 0.6 % 0.0-2.0 N LYMPHOCYTE % (test code = LY%) 15.9 % 14.0-32.0 N MONOCYTE % (test code = MO%) 7.3 % 4.8-9.0 N EOSINOPHIL % (test code = EO%) 3.5 % 0.3-3.7 N BASOPHIL % (test code = BA%) 0.3 % 0.0-2.0 N NUCLEATED RBC % (test code = NRBC%) 0.0 % 0-0 N NEUTROPHIL # (test code = NT#) 8.85 x10 3/uL 2.0-7.6 H IMMATURE GRANULOCYTE # (test code = IG#) 0.07 x10 3/uL 0.00-0.03 H LYMPHOCYTE # (test code = LY#) 1.95 x10 3/uL 1.0-3.8 N MONOCYTE # (test code = MO#) 0.89 x10 3/uL 0.1-0.8 H EOSINOPHIL # (test code = EO#) 0.43 x10 3/uL 0.0-0.2 H BASOPHIL # (test code = BA#) 0.04 x10 3/uL 0.0-0.2 N NUCLEATED RBC # (test code = NRBC#) 0.00 x10 3/uL 0.0-0.1 N BASIC METABOLIC [id number] 04:32:00* Test Item Value Reference Range Interpretation Comme nts SODIUM (test code = NA) 142 mEq/L 134-147 N POTASSIUM (test code = K) 3.9 mEq/L 3.4-5.0 N CHLORIDE (test code = CL) 110 mEq/L 100-108 H CARBON DIOXIDE (test code = CO2) 23 mEq/l 21-33 N ANION GAP (test code = GAP) 13 0-20 N GLUCOSE (test code = GLU) 115 mg/dL 77-141 N BLOOD UREA NITROGEN (test code = BUN) 26 mg/dL 7-25 H GLOMERULAR FILTRATION RATE (test code = GFR) 96.6 80-90 H The Glomerular Filtration Rate is a calculated parameterbased on serum Creatinine, patient age and sex. GFR valuesless than 60 mL/min/1.73 square meters are indicative ofChronic Kidney Disease. Values less than 15 mL/min/1.73square meters indicate Kidney failure. The calculation forGFR is based on the CKD-EPI (2020) calculation. This formulais race indifferent and is the recommended formula for GFRby the National Kidney Foundation for Adults.The GFR will not calculate if the sex is unknown or if thepatient's age is <18 years. CREATININE (test code = CREAT) 0.9 mg/dL 0.6-1.3 N CALCIUM (test code = CA) 8.1 mg/dL 8.0-10.5 N [id number] 04:32:00* Test Item Value Reference Range Interpretation Comme nts MAGNESIUM (test code = MAG) 2.01 mg/dL 1.6-2.6 N HGB [id number] 03:19:00* Test Item Value Reference Range Interpretation Comme nts HEMOGLOBIN (test code = HGB) 6.1 g/dL 12.5-16.9 LL Critical result called to BECKY ESQUIVEL RN [place] [id number] [place] [address]/24/24Nurse read back result and tech confirmed it's correct? YES HEMATOCRIT (test code = HCT) 18.9 % 37.5-50.7 L BASIC METABOLIC [id number] 02:39:00* Test Item Value Reference Range Interpretation Comme nts SODIUM (test code = NA) 141 mEq/L 134-147 N POTASSIUM (test code = K) 3.8 mEq/L 3.4-5.0 N CHLORIDE (test code = CL) 107 mEq/L 100-108 N CARBON DIOXIDE (test code = CO2) 25 mEq/l 21-33 N ANION GAP (test code = GAP) 13 0-20 N GLUCOSE (test code = GLU) 111 mg/dL 77-141 N BLOOD UREA NITROGEN (test code = BUN) 27 mg/dL 7-25 H GLOMERULAR FILTRATION RATE (test code = GFR) 96.6 80-90 H The Glomerular Filtration Rate is a calculated parameterbased on serum Creatinine, patient age and sex. GFR valuesless than 60 mL/min/1.73 square meters are indicative ofChronic Kidney Disease. Values less than 15 mL/min/1.73square meters indicate Kidney failure. The calculation forGFR is based on the CKD-EPI (2020) calculation. This formulais race indifferent and is the recommended formula for GFRby the National Kidney Foundation for Adults.The GFR will not calculate if the sex is unknown or if thepatient's age is <18 years. CREATININE (test code = CREAT) 0.9 mg/dL 0.6-1.3 N CALCIUM (test code = CA) 8.1 mg/dL 8.0-10.5 N COMMENTS: POD #1HEPATIC FUNCTION [id number] 02:39:00* Test Item Value Reference Range Interpretation Comme nts TOTAL PROTEIN (test code = PROT) 5.6 g/dL 6.4-8.2 L ALBUMIN (test code = ALB) 2.40 g/dL 3.4-5.0 L BILIRUBIN TOTAL (test code = BILT) 0.50 mg/dL 0.0-1.0 N BILIRUBIN DIRECT (test code = BILD) 0.20 MG/DL 0.1-0.3 N BILIRUBIN INDIRECT (test cod e = BILIND) 0.30 MG/DL SGOT/AST (test code = AST) 30 IUnit/L 8-34 N SGPT/ALT (test code = ALT) 17 IUnit/L 10-49 N ALKALINE PHOSPHATASE TOTAL ( test code = ALKP) 56 IUnit/L 20-125 N COMMENTS: POD #[id number] 02:39:00* Test Item Value Reference Range Interpretation Comme nts MAGNESIUM (test code = MAG) 2.17 mg/dL 1.6-2.6 N COMMENTS: POD #1CBC W/AUTO [id number] 02:23:00* Test Item Value Reference Range Interpretation Comme nts WHITE BLOOD CELL (test code = WBC) 13.4 x10 3/uL 4.5-11.0 H RED BLOOD CELL (test code = RBC) 2.17 x10 6/uL 4.00-5.60 L HEMOGLOBIN (test code = HGB) 6.3 g/dL 12.5-16.9 LL Critical result called to VICKI DAVIDSON RNby [id number] [place] 22010/24/24Nurse read back result and tech confirmed it's correct? Y ---- HEMATOCRIT (test code = HCT) 19.1 % 37.5-50.7 L MEAN CELL VOLUME (test code = MCV) 88.0 fL 81.0-99.0 MEAN CELL HGB (test code = MCH) 29.0 pg 27.0-33.0 N MEAN CELL HGB CONCETRATION (test code = MCHC) 33.0 g/dL 33.0-37.0 N RED CELL DISTRIBUTION WIDTH CV (test code = RDW) 14.3 % 11.5-14.5 N RED CELL DISTRIBUTION WIDTH SD (test code = RDW-SD) 45.7 fL 37.0-54.0 N PLATELET COUNT (test code = PLT) 265 x10 3/uL 150-400 N MEAN PLATELET VOLUME (test code = MPV) 9.1 fL 7.0-9.0 H NEUTROPHIL % (test code = NT%) 76.5 % 56.0-77.0 N IMMATURE GRANULOCYTE % (test code = IG%) 0.6 % 0.0-2.0 N LYMPHOCYTE % (test code = LY%) 13.6 % 14.0-32.0 L MONOCYTE % (test code = MO%) 7.0 % 4.8-9.0 N EOSINOPHIL % (test code = EO%) 2.2 % 0.3-3.7 N BASOPHIL % (test code = BA%) 0.1 % 0.0-2.0 N NUCLEATED RBC % (test code = NRBC%) 0.0 % 0-0 N NEUTROPHIL # (test code = NT#) 10.26 x10 3/uL 2.0-7.6 H IMMATURE GRANULOCYTE # (test code = IG#) 0.08 x10 3/uL 0.00-0.03 H LYMPHOCYTE # (test code = LY#) 1.82 x10 3/uL 1.0-3.8 N MONOCYTE # (test code = MO#) 0.94 x10 3/uL 0.1-0.8 H EOSINOPHIL # (test code = EO#) 0.30 x10 3/uL 0.0-0.2 H BASOPHIL # (test code = BA#) 0.02 x10 3/uL 0.0-0.2 N NUCLEATED RBC # (test code = NRBC#) 0.00 x10 3/uL 0.0-0.1 N POC ARTERIAL BLOOD [id number] 10:25:00* Test Item Value Reference Range Interpretation Comme nts POC ARTERIAL BLOOD GAS PH (test code = POCPHA) 7.523 7.35-7.45 HH POC ARTERIAL BLOOD GAS PCO2 (test code = PZFXXT1Z) 26.4 mmHg 35.0-45 LL POC TCO2 ARTERIAL (test code = POCTCO2) 22.5 22-29 N POC ARTERIAL BLOOD GAS PO2 (test code = GSZUA8J) 62.7 mmHg 80-100.0 L POC HCO3 ARTERIAL (test code = UPFHEX3H) 21.7 MMOL/L 22.0-26.0 L POC BASE EXCESS (test code = POCBEA) -1.1 MMOL/L See_Comment L [Automated messa ge] The system which generated this result transmitted reference range: 0-+/-4. The reference range was not used to interpret this result as normal/abnormal. POC O2 SATURATION (test code = POCO2S) 94.4 % 90-100 N ABG DELIVERY (test code = LEENA) Cannula ABG SITE (test code = SITEA) R Radial EDUARDA'S TEST (test code = ALLENS) N/A BASIC METABOLIC [id number] 10:25:00* Test Item Value Reference Range Interpretation Comme nts SODIUM (test code = NA/ABG) 138 mmol/L 134-147 N POTASSIUM (test code = K/ABG) 4.0 mmol/L 3.4-5.0 N CHLORIDE (test code = CL/ABG) 105 mmol/L 100-108 N CREATININE ABG (test code = CREAABG) 0.9 mg/dL 0.6-1.3 N POC IONIZED CALCIUM (test co de = POCCA) 1.16 MMOL/L 1.12-1.32 N POC GLUCOSE (test code = POCGLU) 124 MG/DL 70-110 H HEMOGLOBIN [id number] 10:25:00* Test Item Value Reference Range Interpretation Comme nts HEMOGLOBIN ABG (test code = HGB/ABG) 7.7 G/DL 12.5-16.9 L [id number] 10:25:00* Test Item Value Reference Range Interpretation Comme nts HEMATOCRIT (test code = HCT/ABG) 23 % 38-51 L POC LACTIC [id number] 10:25:00* Test Item Value Reference Range Interpretation Comme nts POC LACTIC ACID (test code = POCLAC) 2.3 mmol/l 0.9-1.7 H GLUCOSE [id number] 10:21:00* Test Item Value Reference Range Interpretation Comme nts GLUCOSE BEDSIDE (test code = GLUBED) 99 MG/DL 70-110 N Performed by cer tified 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 at [facility] POC ARTERIAL BLOOD [id number] 06:23:00* Test Item Value Reference Range Interpretation Comme nts POC ARTERIAL BLOOD GAS PH (test code = POCPHA) 7.474 7.35-7.45 H POC ARTERIAL BLOOD GAS PCO2 (test code = ZVQOKO3C) 34.5 mmHg 35.0-45 L POC TCO2 ARTERIAL (test code = POCTCO2) 26.3 22-29 N POC ARTERIAL BLOOD GAS PO2 (test code = AUAPJ9E) 75.1 mmHg 80-100.0 L POC HCO3 ARTERIAL (test code = ZTWNNL3R) 25.3 MMOL/L 22.0-26.0 N POC BASE EXCESS (test code = POCBEA) 1.7 MMOL/L See_Comment N [Automated messa ge] The system which generated this result transmitted reference range: 0-+/-4. The reference range was not used to interpret this result as normal/abnormal. POC O2 SATURATION (test code = POCO2S) 95.8 % 90-100 N ABG DELIVERY (test code = LEENA) Cannula ABG TEMPERATURE (test code = TEMPA) 99.1 F ABG SITE (test code = SITEA) Art Line BASIC METABOLIC [id number] 06:23:00* Test Item Value Reference Range Interpretation Comme nts SODIUM (test code = NA/ABG) 140 mmol/L 134-147 N POTASSIUM (test code = K/ABG) 4.1 mmol/L 3.4-5.0 N CHLORIDE (test code = CL/ABG) 104 mmol/L 100-108 N CREATININE ABG (test code = CREAABG) 0.9 mg/dL 0.6-1.3 N POC IONIZED CALCIUM (test co de = POCCA) 1.22 MMOL/L 1.12-1.32 N POC GLUCOSE (test code = POCGLU) 132 MG/DL 70-110 H HEMOGLOBIN [id number] 06:23:00* Test Item Value Reference Range Interpretation Comme nts HEMOGLOBIN ABG (test code = HGB/ABG) 7.0 G/DL 12.5-16.9 L [id number] 06:23:00* Test Item Value Reference Range Interpretation Comme nts HEMATOCRIT (test code = HCT/ABG) 21 % 38-51 L POC LACTIC [id number] 06:23:00* Test Item Value Reference Range Interpretation Comme nts POC LACTIC ACID (test code = POCLAC) 1.3 mmol/l 0.9-1.7 N POC ARTERIAL BLOOD [id number] 05:14:00* Test Item Value Reference Range Interpretation Comme nts POC ARTERIAL BLOOD GAS PH (test code = POCPHA) 7.465 7.35-7.45 H POC ARTERIAL BLOOD GAS PCO2 (test code = SAESKY1Q) 36.3 mmHg 35.0-45 N POC TCO2 ARTERIAL (test code = POCTCO2) 27.3 22-29 N POC ARTERIAL BLOOD GAS PO2 (test code = XKZJV9Q) 100.8 mmHg 80-100.0 H POC HCO3 ARTERIAL (test code = XDWTBR1P) 26.1 MMOL/L 22.0-26.0 H POC BASE EXCESS (test code = POCBEA) 2.4 MMOL/L See_Comment N [Automated messa ge] The system which generated this result transmitted reference range: 0-+/-4. The reference range was not used to interpret this result as normal/abnormal. POC O2 SATURATION (test code = POCO2S) 98.2 % 90-100 N ABG DELIVERY (test code = LEENA) HFNC ABG TEMPERATURE (test code = TEMPA) 99 F ABG SITE (test code = SITEA) Art Line BASIC METABOLIC [id number] 05:14:00* Test Item Value Reference Range Interpretation Comme nts SODIUM (test code = NA/ABG) 141 mmol/L 134-147 N POTASSIUM (test code = K/ABG) 4.2 mmol/L 3.4-5.0 N CHLORIDE (test code = CL/ABG) 105 mmol/L 100-108 N CREATININE ABG (test code = CREAABG) 1.0 mg/dL 0.6-1.3 N POC IONIZED CALCIUM (test co de = POCCA) 1.23 MMOL/L 1.12-1.32 N POC GLUCOSE (test code = POCGLU) 136 MG/DL 70-110 H HEMOGLOBIN [id number] 05:14:00* Test Item Value Reference Range Interpretation Comme nts HEMOGLOBIN ABG (test code = HGB/ABG) 7.1 G/DL 12.5-16.9 L [id number] 05:14:00* Test Item Value Reference Range Interpretation Comme nts HEMATOCRIT (test code = HCT/ABG) 21 % 38-51 L POC LACTIC [id number] 05:14:00* Test Item Value Reference Range Interpretation Comme nts POC LACTIC ACID (test code = POCLAC) 1.3 mmol/l 0.9-1.7 N POC ARTERIAL BLOOD [id number] 04:08:00* Test Item Value Reference Range Interpretation Comme nts POC ARTERIAL BLOOD GAS PH (test code = POCPHA) 7.460 7.35-7.45 H POC ARTERIAL BLOOD GAS PCO2 (test code = DWLKNA1I) 35.6 mmHg 35.0-45 N POC TCO2 ARTERIAL (test code = POCTCO2) 26.4 22-29 N POC ARTERIAL BLOOD GAS PO2 (test code = BEFCZ5K) 133.2 mmHg 80-100.0 H POC HCO3 ARTERIAL (test code = LJTLKT1A) 25.3 MMOL/L 22.0-26.0 N POC BASE EXCESS (test code = POCBEA) 1.5 MMOL/L See_Comment N [Automated messa ge] The system which generated this result transmitted reference range: 0-+/-4. The reference range was not used to interpret this result as normal/abnormal. POC O2 SATURATION (test code = POCO2S) 99.2 % 90-100 N ABG DELIVERY (test code = LEENA) HFNC ABG TEMPERATURE (test code = TEMPA) 99 F ABG SITE (test code = SITEA) Art Line BASIC METABOLIC [id number] 04:08:00* Test Item Value Reference Range Interpretation Comme nts SODIUM (test code = NA/ABG) 140 mmol/L 134-147 N POTASSIUM (test code = K/ABG) 4.2 mmol/L 3.4-5.0 N CHLORIDE (test code = CL/ABG) 105 mmol/L 100-108 N CREATININE ABG (test code = CREAABG) 1.0 mg/dL 0.6-1.3 N POC IONIZED CALCIUM (test co de = POCCA) 1.22 MMOL/L 1.12-1.32 N POC GLUCOSE (test code = POCGLU) 145 MG/DL 70-110 H HEMOGLOBIN [id number] 04:08:00* Test Item Value Reference Range Interpretation Comme nts HEMOGLOBIN ABG (test code = HGB/ABG) 7.0 G/DL 12.5-16.9 L [id number] 04:08:00* Test Item Value Reference Range Interpretation Comme nts HEMATOCRIT (test code = HCT/ABG) 21 % 38-51 L POC LACTIC [id number] 04:08:00* Test Item Value Reference Range Interpretation Comme nts POC LACTIC ACID (test code = POCLAC) 2.0 mmol/l 0.9-1.7 H CBC W/AUTO [id number] 03:53:00* Test Item Value Reference Range Interpretation Comme nts WHITE BLOOD CELL (test code = WBC) 11.8 x10 3/uL 4.5-11.0 H RED BLOOD CELL (test code = RBC) 2.51 x10 6/uL 4.00-5.60 L HEMOGLOBIN (test code = HGB) 7.2 g/dL 12.5-16.9 L HEMATOCRIT (test code = HCT) 22.9 % 37.5-50.7 L MEAN CELL VOLUME (test code = MCV) 91.2 fL 81.0-99.0 N MEAN CELL HGB (test code = MCH) 28.7 pg 27.0-33.0 N MEAN CELL HGB CONCETRATION (test code = MCHC) 31.4 g/dL 33.0-37.0 L RED CELL DISTRIBUTION WIDTH CV (test code = RDW) 13.7 % 11.5-14.5 N RED CELL DISTRIBUTION WIDTH SD (test code = RDW-SD) 45.3 fL 37.0-54.0 N PLATELET COUNT (test code = PLT) 320 x10 3/uL 150-400 N MEAN PLATELET VOLUME (test code = MPV) 9.0 fL 7.0-9.0 N NEUTROPHIL % (test code = NT%) 81.0 % 56.0-77.0 H IMMATURE GRANULOCYTE % (test code = IG%) 0.4 % 0.0-2.0 N LYMPHOCYTE % (test code = LY%) 9.9 % 14.0-32.0 L MONOCYTE % (test code = MO%) 7.0 % 4.8-9.0 N EOSINOPHIL % (test code = EO%) 1.4 % 0.3-3.7 N BASOPHIL % (test code = BA%) 0.3 % 0.0-2.0 N NUCLEATED RBC % (test code = NRBC%) 0.0 % 0-0 N NEUTROPHIL # (test code = NT#) 9.51 x10 3/uL 2.0-7.6 H IMMATURE GRANULOCYTE # (test code = IG#) 0.05 x10 3/uL 0.00-0.03 H LYMPHOCYTE # (test code = LY#) 1.16 x10 3/uL 1.0-3.8 N MONOCYTE # (test code = MO#) 0.82 x10 3/uL 0.1-0.8 H EOSINOPHIL # (test code = EO#) 0.17 x10 3/uL 0.0-0.2 N BASOPHIL # (test code = BA#) 0.04 x10 3/uL 0.0-0.2 N NUCLEATED RBC # (test code = NRBC#) 0.00 x10 3/uL 0.0-0.1 N MANUAL DIFF REQUIRED (test code = MDIFF) NO SLIDE REVIEW ED, CONSISTENT WITH AUTO DIFF. BASIC METABOLIC [id number] 03:18:00* Test Item Value Reference Range Interpretation Comme nts SODIUM (test code = NA) 140 mEq/L 134-147 N POTASSIUM (test code = K) 4.1 mEq/L 3.4-5.0 N CHLORIDE (test code = CL) 106 mEq/L 100-108 N CARBON DIOXIDE (test code = CO2) 26 mEq/l 21-33 N ANION GAP (test code = GAP) 12 0-20 N GLUCOSE (test code = GLU) 133 mg/dL 77-141 N BLOOD UREA NITROGEN (test code = BUN) 26 mg/dL 7-25 H GLOMERULAR FILTRATION RATE (test code = GFR) 96.6 80-90 H The Glomerular Filtration Rate is a calculated parameterbased on serum Creatinine, patient age and sex. GFR valuesless than 60 mL/min/1.73 square meters are indicative ofChronic Kidney Disease. Values less than 15 mL/min/1.73square meters indicate Kidney failure. The calculation forGFR is based on the CKD-EPI (202) calculation. This formulais race indifferent and is the recommended formula for GFRby the National Kidney Foundation for Adults.The GFR will not calculate if the sex is unknown or if thepatient's age is <18 years. CREATININE (test code = CREAT) 0.9 mg/dL 0.6-1.3 N CALCIUM (test code = CA) 8.7 mg/dL 8.0-10.5 N COMMENTS: POD #1HEPATIC FUNCTION [id number] 03:18:00* Test Item Value Reference Range Interpretation Comme nts TOTAL PROTEIN (test code = PROT) 6.1 g/dL 6.4-8.2 L ALBUMIN (test code = ALB) 2.80 g/dL 3.4-5.0 L BILIRUBIN TOTAL (test code = BILT) 0.50 mg/dL 0.0-1.0 N BILIRUBIN DIRECT (test code = BILD) 0.20 MG/DL 0.1-0.3 N BILIRUBIN INDIRECT (test cod e = BILIND) 0.30 MG/DL SGOT/AST (test code = AST) 36 IUnit/L 8-34 H SGPT/ALT (test code = ALT) 16 IUnit/L 10-49 N ALKALINE PHOSPHATASE TOTAL ( test code = ALKP) 61 IUnit/L 20-125 N COMMENTS: POD #[id number] 03:18:00* Test Item Value Reference Range Interpretation Comme nts MAGNESIUM (test code = MAG) 2.06 mg/dL 1.6-2.6 N COMMENTS: POD #1POC ARTERIAL BLOOD [id number] 19:50:00* Test Item Value Reference Range Interpretation Comme nts POC ARTERIAL BLOOD GAS PH (test code = POCPHA) 7.434 7.35-7.45 N POC ARTERIAL BLOOD GAS PCO2 (test code = HZEGTX6X) 38.5 mmHg 35.0-45 N POC TCO2 ARTERIAL (test code = POCTCO2) 26.7 22-29 N POC ARTERIAL BLOOD GAS PO2 (test code = TNLTU0B) 64.1 mmHg 80-100.0 L POC HCO3 ARTERIAL (test code = JLSUNT2V) 25.5 MMOL/L 22.0-26.0 N POC BASE EXCESS (test code = POCBEA) 1.5 MMOL/L See_Comment N [Automated messa ge] The system which generated this result transmitted reference range: 0-+/-4. The reference range was not used to interpret this result as normal/abnormal. POC O2 SATURATION (test code = POCO2S) 91.7 % 90-100 N ABG DELIVERY (test code = LEENA) HFNC ABG TEMPERATURE (test code = TEMPA) 100.4 F ABG SITE (test code = SITEA) Art Line EDUARDA'S TEST (test code = ALLENS) N/A BASIC METABOLIC [id number] 19:50:00* Test Item Value Reference Range Interpretation Comme nts SODIUM (test code = NA/ABG) 141 mmol/L 134-147 N POTASSIUM (test code = K/ABG) 4.0 mmol/L 3.4-5.0 N CHLORIDE (test code = CL/ABG) 105 mmol/L 100-108 N CREATININE ABG (test code = CREAABG) 1.0 mg/dL 0.6-1.3 N POC IONIZED CALCIUM (test co de = POCCA) 1.22 MMOL/L 1.12-1.32 N POC GLUCOSE (test code = POCGLU) 144 MG/DL 70-110 H HEMOGLOBIN [id number] 19:50:00* Test Item Value Reference Range Interpretation Comme nts HEMOGLOBIN ABG (test code = HGB/ABG) 7.1 G/DL 12.5-16.9 L [id number] 19:50:00* Test Item Value Reference Range Interpretation Comme nts HEMATOCRIT (test code = HCT/ABG) 21 % 38-51 L POC LACTIC [id number] 19:50:00* Test Item Value Reference Range Interpretation Comme nts POC LACTIC ACID (test code = POCLAC) 1.7 mmol/l 0.9-1.7 N CBC W/AUTO [id number] 17:46:00* Test Item Value Reference Range Interpretation Comme nts WHITE BLOOD CELL (test code = WBC) 10.7 x10 3/uL 4.5-11.0 N RED BLOOD CELL (test code = RBC) 2.63 x10 6/uL 4.00-5.60 L HEMOGLOBIN (test code = HGB) 7.7 g/dL 12.5-16.9 L HEMATOCRIT (test code = HCT) 23.8 % 37.5-50.7 L MEAN CELL VOLUME (test code = MCV) 90.5 fL 81.0-99.0 N MEAN CELL HGB (test code = MCH) 29.3 pg 27.0-33.0 N MEAN CELL HGB CONCETRATION (test code = MCHC) 32.4 g/dL 33.0-37.0 L RED CELL DISTRIBUTION WIDTH CV (test code = RDW) 13.7 % 11.5-14.5 N RED CELL DISTRIBUTION WIDTH SD (test code = RDW-SD) 44.9 fL 37.0-54.0 N PLATELET COUNT (test code = PLT) 376 x10 3/uL 150-400 N MEAN PLATELET VOLUME (test c ode = MPV) 9.4 fL 7.0-9.0 H NEUTROPHIL % (test code = NT%) 73.9 % 56.0-77.0 N IMMATURE GRANULOCYTE % (test code = IG%) 0.4 % 0.0-2.0 N LYMPHOCYTE % (test code = LY%) 13.9 % 14.0-32.0 L MONOCYTE % (test code = MO%) 9.4 % 4.8-9.0 H EOSINOPHIL % (test code = EO%) 2.1 % 0.3-3.7 N BASOPHIL % (test code = BA%) 0.3 % 0.0-2.0 N NUCLEATED RBC % (test code = NRBC%) 0.0 % 0-0 N NEUTROPHIL # (test code = NT#) 7.91 x10 3/uL 2.0-7.6 H IMMATURE GRANULOCYTE # (test code = IG#) 0.04 x10 3/uL 0.00-0.03 H LYMPHOCYTE # (test code = LY#) 1.49 x10 3/uL 1.0-3.8 N MONOCYTE # (test code = MO#) 1.00 x10 3/uL 0.1-0.8 H EOSINOPHIL # (test code = EO#) 0.22 x10 3/uL 0.0-0.2 H BASOPHIL # (test code = BA#) 0.03 x10 3/uL 0.0-0.2 N NUCLEATED RBC # (test code = NRBC#) 0.00 x10 3/uL 0.0-0.1 N MANUAL DIFF REQUIRED (test c ode = MDIFF) YES WBC [id number] 17:46:00* Test Item Value Reference Range Interpretation Comme nts BAND NEUTROPHIL (test code = BAND) 8.0 % 0.0-10.0 N ANISOCYTOSIS (test code = ANISO) PLATELET ESTIMATE (test code = PLTEST) x10 3/uL 150-400 ADEQUATE SEGMENTED NEUTROPHILS (test code = SEG) 68 % 37-69 N LYMPHOCYTE (test code = LYMPH) 12 % 23-55 L MONOCYTE (test code = MON) 10 % 0-10 N EOSINOPHIL (test code = EOS) 2 % 0.0-4.0 N PLATELET MORPHOLOGY (test co de = PLTMORPH) NORMAL GLUCOSE [id number] 08:53:00* Test Item Value Reference Range Interpretation Comme nts GLUCOSE BEDSIDE (test code = GLUBED) 87 MG/DL 70-110 N Performed by 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 at [facility] POC ARTERIAL BLOOD [id number] 06:23:00* Test Item Value Reference Range Interpretation Comme nts POC ARTERIAL BLOOD GAS PH (test code = POCPHA) 7.393 7.35-7.45 N POC ARTERIAL BLOOD GAS PCO2 (test code = [id number]) 40.8 mmHg 35.0-45 N POC TCO2 ARTERIAL (test code = POCTCO2) 26.1 22-29 N POC ARTERIAL BLOOD GAS PO2 (test code = VBMBW6V) 70.4 mmHg 80-100.0 L POC HCO3 ARTERIAL (test code = LUJVPA2E) 24.8 MMOL/L 22.0-26.0 N POC BASE EXCESS (test code = POCBEA) -0.1 MMOL/L See_Comment L [Automated messa ge] The system which generated this result transmitted reference range: 0-+/-4. The reference range was not used to interpret this result as normal/abnormal. POC O2 SATURATION (test code = POCO2S) 93.8 % 90-100 N ABG DELIVERY (test code = LEENA) Cannula ABG TEMPERATURE (test code = TEMPA) 99 F ABG SITE (test code = SITEA) Art Line BASIC METABOLIC [id number] 06:23:00* Test Item Value Reference Range Interpretation Comme nts SODIUM (test code = NA/ABG) 143 mmol/L 134-147 N POTASSIUM (test code = K/ABG) 4.2 mmol/L 3.4-5.0 N CHLORIDE (test code = CL/ABG) 108 mmol/L 100-108 N CREATININE ABG (test code = CREAABG) 1.1 mg/dL 0.6-1.3 N POC IONIZED CALCIUM (test co de = POCCA) 1.28 MMOL/L 1.12-1.32 N POC GLUCOSE (test code = POCGLU) 160 MG/DL 70-110 H HEMOGLOBIN [id number] 06:23:00* Test Item Value Reference Range Interpretation Comme nts HEMOGLOBIN ABG (test code = HGB/ABG) 7.4 G/DL 12.5-16.9 L [id number] 06:23:00* Test Item Value Reference Range Interpretation Comme nts HEMATOCRIT (test code = HCT/ABG) 22 % 38-51 L POC LACTIC [id number] 06:23:00* Test Item Value Reference Range Interpretation Comme nts POC LACTIC ACID (test code = POCLAC) 1.3 mmol/l 0.9-1.7 N POC ARTERIAL BLOOD [id number] 04:52:00* Test Item Value Reference Range Interpretation Comme nts POC ARTERIAL BLOOD GAS PH (test code = POCPHA) 7.393 7.35-7.45 N POC ARTERIAL BLOOD GAS PCO2 (test code = ENHHHS2E) 40.9 mmHg 35.0-45 N POC TCO2 ARTERIAL (test code = POCTCO2) 26.1 22-29 N POC ARTERIAL BLOOD GAS PO2 (test code = RLQDI6B) 70.4 mmHg 80-100.0 L POC HCO3 ARTERIAL (test code = RGHPRV4K) 24.9 MMOL/L 22.0-26.0 N POC BASE EXCESS (test code = POCBEA) 0.0 MMOL/L See_Comment N [Automated messa ge] The system which generated this result transmitted reference range: 0-+/-4. The reference range was not used to interpret this result as normal/abnormal. POC O2 SATURATION (test code = POCO2S) 93.7 % 90-100 N ABG DELIVERY (test code = LEENA) Cannula ABG TEMPERATURE (test code = TEMPA) 99 F ABG SITE (test code = SITEA) Art Line BASIC METABOLIC [id number] 04:52:00* Test Item Value Reference Range Interpretation Comme nts SODIUM (test code = NA/ABG) 144 mmol/L 134-147 N POTASSIUM (test code = K/ABG) 4.5 mmol/L 3.4-5.0 N CHLORIDE (test code = CL/ABG) 110 mmol/L 100-108 H CREATININE ABG (test code = CREAABG) 1.1 mg/dL 0.6-1.3 N POC IONIZED CALCIUM (test co de = POCCA) 1.28 MMOL/L 1.12-1.32 N POC GLUCOSE (test code = POCGLU) 145 MG/DL 70-110 H HEMOGLOBIN [id number] 04:52:00* Test Item Value Reference Range Interpretation Comme nts HEMOGLOBIN ABG (test code = HGB/ABG) 7.9 G/DL 12.5-16.9 L [id number] 04:52:00* Test Item Value Reference Range Interpretation Comme nts HEMATOCRIT (test code = HCT/ABG) 23 % 38-51 L POC LACTIC [id number] 04:52:00* Test Item Value Reference Range Interpretation Comme nts POC LACTIC ACID (test code = POCLAC) 2.3 mmol/l 0.9-1.7 H POC ARTERIAL BLOOD [id number] 03:48:00* Test Item Value Reference Range Interpretation Comme nts POC ARTERIAL BLOOD GAS PH (test code = POCPHA) 7.405 7.35-7.45 N POC ARTERIAL BLOOD GAS PCO2 (test code = SHOTNK9I) 44.5 mmHg 35.0-45 N POC TCO2 ARTERIAL (test code = POCTCO2) 29.2 22-29 H POC ARTERIAL BLOOD GAS PO2 (test code = OLXLR6F) 101.3 mmHg 80-100.0 H POC HCO3 ARTERIAL (test code = BIGKIX2F) 27.9 MMOL/L 22.0-26.0 H POC BASE EXCESS (test code = POCBEA) 3.1 MMOL/L See_Comment N [Automated messa ge] The system which generated this result transmitted reference range: 0-+/-4. The reference range was not used to interpret this result as normal/abnormal. POC O2 SATURATION (test code = POCO2S) 97.8 % 90-100 N FIO2 (test code = FIO2A) 40 % PaO2/FiO2 (test code = LMB2NKR8) 253.25 mm/Hg ABG DELIVERY (test code = LEENA) BiPAP ABG PEEP (test code = PEEPA) 6 cmH2O ABG PRESSURE SUPPORT (test code = PSABG) 12 cmH2O ABG TEMPERATURE (test code = TEMPA) 100 F ABG SITE (test code = SITEA) Art Line BASIC METABOLIC [id number] 03:48:00* Test Item Value Reference Range Interpretation Comme nts SODIUM (test code = NA/ABG) 146 mmol/L 134-147 N POTASSIUM (test code = K/ABG) 4.3 mmol/L 3.4-5.0 N CHLORIDE (test code = CL/ABG) 109 mmol/L 100-108 H CREATININE ABG (test code = CREAABG) 1.2 mg/dL 0.6-1.3 N POC IONIZED CALCIUM (test co de = POCCA) 1.34 MMOL/L 1.12-1.32 H POC GLUCOSE (test code = POCGLU) 122 MG/DL 70-110 H HEMOGLOBIN [id number] 03:48:00* Test Item Value Reference Range Interpretation Comme nts HEMOGLOBIN ABG (test code = HGB/ABG) 7.1 G/DL 12.5-16.9 L [id number] 03:48:00* Test Item Value Reference Range Interpretation Comme nts HEMATOCRIT (test code = HCT/ABG) 21 % 38-51 L POC LACTIC [id number] 03:48:00* Test Item Value Reference Range Interpretation Comme nts POC LACTIC ACID (test code = POCLAC) 1.1 mmol/l 0.9-1.7 N BASIC METABOLIC [id number] 03:24:00* Test Item Value Reference Range Interpretation Comme nts SODIUM (test code = NA) 144 mEq/L 134-147 N POTASSIUM (test code = K) 4.4 mEq/L 3.4-5.0 N CHLORIDE (test code = CL) 111 mEq/L 100-108 H CARBON DIOXIDE (test code = CO2) 26 mEq/l 21-33 N ANION GAP (test code = GAP) 11 0-20 N GLUCOSE (test code = GLU) 122 mg/dL 77-141 N BLOOD UREA NITROGEN (test code = BUN) 22 mg/dL 7-25 N GLOMERULAR FILTRATION RATE (test code = GFR) 75.9 80-90 L The Glomerular Filtration Rate is a calculated parameterbased on serum Creatinine, patient age and sex. GFR valuesless than 60 mL/min/1.73 square meters are indicative ofChronic Kidney Disease. Values less than 15 mL/min/1.73square meters indicate Kidney failure. The calculation forGFR is based on the CKD-EPI (202) calculation. This formulais race indifferent and is the recommended formula for GFRby the National Kidney Foundation for Adults.The GFR will not calculate if the sex is unknown or if thepatient's age is <18 years. CREATININE (test code = CREAT) 1.1 mg/dL 0.6-1.3 N CALCIUM (test code = CA) 8.8 mg/dL 8.0-10.5 N COMMENTS: POD #1HEPATIC FUNCTION [id number] 03:24:00* Test Item Value Reference Range Interpretation Comme nts TOTAL PROTEIN (test code = PROT) 5.8 g/dL 6.4-8.2 L ALBUMIN (test code = ALB) 2.90 g/dL 3.4-5.0 L BILIRUBIN TOTAL (test code = BILT) 0.70 mg/dL 0.0-1.0 N BILIRUBIN DIRECT (test code = BILD) 0.30 MG/DL 0.1-0.3 N BILIRUBIN INDIRECT (test cod e = BILIND) 0.40 MG/DL SGOT/AST (test code = AST) 59 IUnit/L 8-34 H SGPT/ALT (test code = ALT) 21 IUnit/L 10-49 N ALKALINE PHOSPHATASE TOTAL ( test code = ALKP) 59 IUnit/L 20-125 N COMMENTS: POD #[id number] 03:24:00* Test Item Value Reference Range Interpretation Comme nts MAGNESIUM (test code = MAG) 2.12 mg/dL 1.6-2.6 COMMENTS: POD #1CBC W/AUTO [id number] 03:06:00* Test Item Value Reference Range Interpretation Comme nts WHITE BLOOD CELL (test code = WBC) 9.2 x10 3/uL 4.5-11.0 N RED BLOOD CELL (test code = RBC) 2.63 x10 6/uL 4.00-5.60 L HEMOGLOBIN (test code = HGB) 7.6 g/dL 12.5-16.9 L HEMATOCRIT (test code = HCT) 24.0 % 37.5-50.7 L MEAN CELL VOLUME (test code = MCV) 91.3 fL 81.0-99.0 MEAN CELL HGB (test code = MCH) 28.9 pg 27.0-33.0 N MEAN CELL HGB CONCETRATION (test code = MCHC) 31.7 g/dL 33.0-37.0 L RED CELL DISTRIBUTION WIDTH CV (test code = RDW) 13.3 % 11.5-14.5 N RED CELL DISTRIBUTION WIDTH SD (test code = RDW-SD) 44.3 fL 37.0-54.0 N PLATELET COUNT (test code = PLT) 344 x10 3/uL 150-400 N MEAN PLATELET VOLUME (test c ode = MPV) 9.1 fL 7.0-9.0 H NEUTROPHIL % (test code = NT%) 76.2 % 56.0-77.0 N IMMATURE GRANULOCYTE % (test code = IG%) 0.2 % 0.0-2.0 N LYMPHOCYTE % (test code = LY%) 11.1 % 14.0-32.0 L MONOCYTE % (test code = MO%) 9.4 % 4.8-9.0 H EOSINOPHIL % (test code = EO%) 2.8 % 0.3-3.7 N BASOPHIL % (test code = BA%) 0.3 % 0.0-2.0 N NUCLEATED RBC % (test code = NRBC%) 0.0 % 0-0 N NEUTROPHIL # (test code = NT#) 6.98 x10 3/uL 2.0-7.6 N IMMATURE GRANULOCYTE # (test code = IG#) 0.02 x10 3/uL 0.00-0.03 N LYMPHOCYTE # (test code = LY#) 1.02 x10 3/uL 1.0-3.8 N MONOCYTE # (test code = MO#) 0.86 x10 3/uL 0.1-0.8 H EOSINOPHIL # (test code = EO#) 0.26 x10 3/uL 0.0-0.2 H BASOPHIL # (test code = BA#) 0.03 x10 3/uL 0.0-0.2 N NUCLEATED RBC # (test code = NRBC#) 0.00 x10 3/uL 0.0-0.1 N POC ARTERIAL BLOOD [id number] 00:31:00* Test Item Value Reference Range Interpretation Comme nts POC ARTERIAL BLOOD GAS PH (test code = POCPHA) 7.424 7.35-7.45 N POC ARTERIAL BLOOD GAS PCO2 (test code = [id number]) 44.0 mmHg 35.0-45 N POC TCO2 ARTERIAL (test code = POCTCO2) 30.2 22-29 H POC ARTERIAL BLOOD GAS PO2 (test code = PSOHU1W) 203.4 mmHg 80-100.0 HH POC HCO3 ARTERIAL (test code = OMRYRP7E) 28.8 MMOL/L 22.0-26.0 HH POC BASE EXCESS (test code = POCBEA) 4.4 MMOL/L See_Comment H [Automated messa ge] The system which generated this result transmitted reference range: 0-+/-4. The reference range was not used to interpret this result as normal/abnormal. POC O2 SATURATION (test code = POCO2S) 99.7 % 90-100 N FIO2 (test code = FIO2A) 60 % PaO2/FiO2 (test code = [id number]) 339.00 mm/Hg ABG DELIVERY (test code = LEENA) BiPAP ABG PEEP (test code = PEEPA) 6 cmH2O ABG PRESSURE SUPPORT (test code = PSABG) 12 cmH2O ABG TEMPERATURE (test code = TEMPA) 98 F ABG SITE (test code = SITEA) Art Line BASIC METABOLIC [id number] 00:31:00* Test Item Value Reference Range Interpretation Comme nts SODIUM (test code = NA/ABG) 147 mmol/L 134-147 N POTASSIUM (test code = K/ABG) 4.0 mmol/L 3.4-5.0 N CHLORIDE (test code = CL/ABG) 109 mmol/L 100-108 H CREATININE ABG (test code = CREAABG) 1.2 mg/dL 0.6-1.3 N POC IONIZED CALCIUM (test co de = POCCA) 1.38 MMOL/L 1.12-1.32 H POC GLUCOSE (test code = POCGLU) 127 MG/DL 70-110 H HEMOGLOBIN [id number] 00:31:00* Test Item Value Reference Range Interpretation Comme nts HEMOGLOBIN ABG (test code = HGB/ABG) 6.9 G/DL 12.5-16.9 L [id number] 00:31:00* Test Item Value Reference Range Interpretation Comme nts HEMATOCRIT (test code = HCT/ABG) 20 % 38-51 L POC LACTIC [id number] 00:31:00* Test Item Value Reference Range Interpretation Comme nts POC LACTIC ACID (test code = POCLAC) 1.1 mmol/l 0.9-1.7 N POC ARTERIAL BLOOD [id number] 22:56:00* Test Item Value Reference Range Interpretation Comme nts POC ARTERIAL BLOOD GAS PH (test code = POCPHA) 7.461 7.35-7.45 H POC ARTERIAL BLOOD GAS PCO2 (test code = FXARMK2A) 37.6 mmHg 35.0-45 N POC TCO2 ARTERIAL (test code = POCTCO2) 28.0 22-29 N POC ARTERIAL BLOOD GAS PO2 (test code = FASGN9T) 58.9 mmHg 80-100.0 L POC HCO3 ARTERIAL (test code = KFJVBG4P) 26.8 MMOL/L 22.0-26.0 H POC BASE EXCESS (test code = POCBEA) 3.0 MMOL/L See_Comment N [Automated messa ge] The system which generated this result transmitted reference range: 0-+/-4. The reference range was not used to interpret this result as normal/abnormal. POC O2 SATURATION (test code = POCO2S) 91.6 % 90-100 N ABG DELIVERY (test code = LEENA) Cannula ABG TEMPERATURE (test code = TEMPA) 98 F ABG SITE (test code = SITEA) Art Line EDUARDA'S TEST (test code = ALLENS) N/A BASIC METABOLIC [id number] 22:56:00* Test Item Value Reference Range Interpretation Comme nts SODIUM (test code = NA/ABG) 145 mmol/L 134-147 N POTASSIUM (test code = K/ABG) 3.8 mmol/L 3.4-5.0 N CHLORIDE (test code = CL/ABG) 111 mmol/L 100-108 H CREATININE ABG (test code = CREAABG) 1.2 mg/dL 0.6-1.3 N POC IONIZED CALCIUM (test co de = POCCA) 1.29 MMOL/L 1.12-1.32 N POC GLUCOSE (test code = POCGLU) 139 MG/DL 70-110 H HEMOGLOBIN [id number] 22:56:00* Test Item Value Reference Range Interpretation Comme nts HEMOGLOBIN ABG (test code = HGB/ABG) 7.9 G/DL 12.5-16.9 L [id number] 22:56:00* Test Item Value Reference Range Interpretation Comme nts HEMATOCRIT (test code = HCT/ABG) 23 % 38-51 L POC LACTIC [id number] 22:56:00* Test Item Value Reference Range Interpretation Comme nts POC LACTIC ACID (test code = POCLAC) 1.6 mmol/l 0.9-1.7 N POC ARTERIAL BLOOD [id number] 21:04:00* Test Item Value Reference Range Interpretation Comme nts POC ARTERIAL BLOOD GAS PH (test code = POCPHA) 7.422 7.35-7.45 N POC ARTERIAL BLOOD GAS PCO2 (test code = ZZGKRR7S) 43.5 mmHg 35.0-45 N POC TCO2 ARTERIAL (test code = POCTCO2) 29.7 22-29 H POC ARTERIAL BLOOD GAS PO2 (test code = HIYKJ1C) 74.8 mmHg 80-100.0 L POC HCO3 ARTERIAL (test code = AUGQZU7Y) 28.3 MMOL/L 22.0-26.0 HH POC BASE EXCESS (test code = POCBEA) 3.9 MMOL/L See_Comment N [Automated messa ge] The system which generated this result transmitted reference range: 0-+/-4. The reference range was not used to interpret this result as normal/abnormal. POC O2 SATURATION (test code = POCO2S) 95.0 % 90-100 N ABG DELIVERY (test code = LEENA) HFNC ABG TEMPERATURE (test code = TEMPA) 100.9 F ABG SITE (test code = SITEA) Art Line BASIC METABOLIC [id number] 21:04:00* Test Item Value Reference Range Interpretation Comme nts SODIUM (test code = NA/ABG) 146 mmol/L 134-147 N POTASSIUM (test code = K/ABG) 3.7 mmol/L 3.4-5.0 N CHLORIDE (test code = CL/ABG) 109 mmol/L 100-108 H CREATININE ABG (test code = CREAABG) 1.2 mg/dL 0.6-1.3 N POC IONIZED CALCIUM (test co de = POCCA) 1.43 MMOL/L 1.12-1.32 H POC GLUCOSE (test code = POCGLU) 125 MG/DL 70-110 H HEMOGLOBIN [id number] 21:04:00* Test Item Value Reference Range Interpretation Comme nts HEMOGLOBIN ABG (test code = HGB/ABG) 6.9 G/DL 12.5-16.9 L [id number] 21:04:00* Test Item Value Reference Range Interpretation Comme nts HEMATOCRIT (test code = HCT/ABG) 20 % 38-51 L POC LACTIC [id number] 21:04:00* Test Item Value Reference Range Interpretation Comme nts POC LACTIC ACID (test code = POCLAC) 1.5 mmol/l 0.9-1.7 N POC ARTERIAL BLOOD [id number] 17:38:00* Test Item Value Reference Range Interpretation Comme nts POC ARTERIAL BLOOD GAS PH (test code = POCPHA) 7.384 7.35-7.45 N POC ARTERIAL BLOOD GAS PCO2 (test code = VNRHJE8H) 47.8 mmHg 35.0-45 H POC TCO2 ARTERIAL (test code = POCTCO2) 30.0 22-29 H POC ARTERIAL BLOOD GAS PO2 (test code = YNLQE5D) 160.3 mmHg 80-100.0 H POC HCO3 ARTERIAL (test code = HQMIFE6H) 28.5 MMOL/L 22.0-26.0 HH POC BASE EXCESS (test code = POCBEA) 3.5 MMOL/L See_Comment N [Automated messa ge] The system which generated this result transmitted reference range: 0-+/-4. The reference range was not used to interpret this result as normal/abnormal. POC O2 SATURATION (test code = POCO2S) 99.4 % 90-100 N FIO2 (test code = FIO2A) 40 % PaO2/FiO2 (test code = UYG1SLQ1) 400.75 mm/Hg ABG DELIVERY (test code = LEENA) Adult Vent ABG TIDAL VOLUME (test code = TVA) 500 ml ABG PEEP (test code = PEEPA) 5 cmH2O ABG PRESSURE SUPPORT (test code = PSABG) 10 cmH2O ABG TEMPERATURE (test code = TEMPA) 97.9 F ABG SITE (test code = SITEA) Art Line EDUARDA'S TEST (test code = ALLENS) N/A BASIC METABOLIC [id number] 17:38:00* Test Item Value Reference Range Interpretation Comme nts SODIUM (test code = NA/ABG) 147 mmol/L 134-147 N POTASSIUM (test code = K/ABG) 3.6 mmol/L 3.4-5.0 N CHLORIDE (test code = CL/ABG) 109 mmol/L 100-108 H CREATININE ABG (test code = CREAABG) 1.2 mg/dL 0.6-1.3 N POC IONIZED CALCIUM (test co de = POCCA) 1.44 MMOL/L 1.12-1.32 H POC GLUCOSE (test code = POCGLU) 114 MG/DL 70-110 H HEMOGLOBIN [id number] 17:38:00* Test Item Value Reference Range Interpretation Comme nts HEMOGLOBIN ABG (test code = HGB/ABG) 6.0 G/DL 12.5-16.9 L [id number] 17:38:00* Test Item Value Reference Range Interpretation Comme nts HEMATOCRIT (test code = HCT/ABG) 18 % 38-51 L POC LACTIC [id number] 17:38:00* Test Item Value Reference Range Interpretation Comme nts POC LACTIC ACID (test code = POCLAC) 1.6 mmol/l 0.9-1.7 N [id number] 15:30:00* Test Item Value Reference Range Interpretation Comme nts R-TIME (test code = RTIME) 7.7 min 4.6-9.1 N K-TIME (test code = KTIME) 0.9 min 0.8-2.1 N ANGLE (test code = ANG) 77.0 degrees 63-78 N MAXIMUM AMPLITUDE (test code = MA) 67.3 mm 52-69 N TEG REAL PROPERTY EVALUATOR RAP MAXIMUM AMPLITUD E (test code = CRTMA) 66.8 mm 52-70 N TEG CIT KOALIN HEPARINASE CT (test code = CKHR) 6.1 mins 4.3-8.3 N Citrated FUNC FIB MAX AMP (t est code = CFFMA) 23.3 mm 15-32 N CIT FUNCTIONAL FIB ESTIMATED (test code = CFFFLEV) 425.2 mg/dL 278-581 N BASIC METABOLIC [id number] 15:18:00* Test Item Value Reference Range Interpretation Comme nts SODIUM (test code = NA) 143 mEq/L 134-147 N POTASSIUM (test code = K) 4.6 mEq/L 3.4-5.0 N CHLORIDE (test code = CL) 109 mEq/L 100-108 H CARBON DIOXIDE (test code = CO2) 25 mEq/l 21-33 N ANION GAP (test code = GAP) 13 0-20 N GLUCOSE (test code = GLU) 157 mg/dL 77-141 H BLOOD UREA NITROGEN (test code = BUN) 23 mg/dL 7-25 N GLOMERULAR FILTRATION RATE (test code = GFR) 85.1 80-90 N The Glomerular Filtration Rate is a calculated parameterbased on serum Creatinine, patient age and sex. GFR valuesless than 60 mL/min/1.73 square meters are indicative ofChronic Kidney Disease. Values less than 15 mL/min/1.73square meters indicate Kidney failure. The calculation forGFR is based on the CKD-EPI (2020) calculation. This formulais race indifferent and is the recommended formula for GFRby the National Kidney Foundation for Adults.The GFR will not calculate if the sex is unknown or if thepatient's age is <18 years. CREATININE (test code = CREAT) 1.0 mg/dL 0.6-1.3 N CALCIUM (test code = CA) 9.7 mg/dL 8.0-10.5 N COMMENTS: On arrivalComment: On [id number] 15:18:00* Test Item Value Reference Range Interpretation Comme nts MAGNESIUM (test code = MAG) 2.84 mg/dL 1.6-2.6 H COMMENTS: On arrivalComment: On arrivalPOC ARTERIAL BLOOD [id number] 15:14:00 * Test Item Value Reference Range Interpretation Comme nts POC ARTERIAL BLOOD GAS PH (test code = POCPHA) 7.348 7.35-7.45 L POC ARTERIAL BLOOD GAS PCO2 (test code = PCGSAO8E) 64.2 mmHg 35.0-45 HH POC TCO2 ARTERIAL (test code = POCTCO2) 37.3 22-29 H POC ARTERIAL BLOOD GAS PO2 (test code = OQMCP5L) 79.5 mmHg 80-100.0 L POC HCO3 ARTERIAL (test code = EGCSOP8D) 35.3 MMOL/L 22.0-26.0 HH POC BASE EXCESS (test code = POCBEA) 9.7 MMOL/L See_Comment H [Automated messa ge] The system which generated this result transmitted reference range: 0-+/-4. The reference range was not used to interpret this result as normal/abnormal. POC O2 SATURATION (test code = POCO2S) 94.4 % 90-100 N FIO2 (test code = FIO2A) 40 % PaO2/FiO2 (test code = MYO2LKA4) 198.75 mm/Hg ABG DELIVERY (test code = LEENA) Adult Vent ABG VENT MODE (test code = MODEA) CPAP/PS ABG PEEP (test code = PEEPA) 5 cmH2O ABG PRESSURE SUPPORT (test code = PSABG) 10 cmH2O ABG TEMPERATURE (test code = TEMPA) 97.5 F ABG SITE (test code = SITEA) Art Line EDUARDA'S TEST (test code = ALLENS) N/A BASIC METABOLIC [id number] 15:14:00* Test Item Value Reference Range Interpretation Comme nts SODIUM (test code = NA/ABG) 142 mmol/L 134-147 N POTASSIUM (test code = K/ABG) 4.4 mmol/L 3.4-5.0 N CHLORIDE (test code = CL/ABG) 109 mmol/L 100-108 H CREATININE ABG (test code = CREAABG) 1.1 mg/dL 0.6-1.3 N POC IONIZED CALCIUM (test co de = POCCA) 1.47 MMOL/L 1.12-1.32 H POC GLUCOSE (test code = POCGLU) 143 MG/DL 70-110 H HEMOGLOBIN [id number] 15:14:00* Test Item Value Reference Range Interpretation Comme nts HEMOGLOBIN ABG (test code = HGB/ABG) 6.3 G/DL 12.5-16.9 L [id number] 15:14:00* Test Item Value Reference Range Interpretation Comme nts HEMATOCRIT (test code = HCT/ABG) 18 % 38-51 L POC LACTIC [id number] 15:14:00* Test Item Value Reference Range Interpretation Comme nts POC LACTIC ACID (test code = POCLAC) 2.7 mmol/l 0.9-1.7 H PROTHROMBIN [id number] 15:01:00* Test Item Value Reference Range Interpretation Comme [facility] PROTHROMBIN TIME PATIENT (test code = PTP) 15.8 SECONDS 9.3-12.9 H INTERNATIONAL NORMAL RATIO (test code = INR) 1.4 0.8-1.2 H TARGET INR BY INDICATION Indication INR1. Prophylaxis of venous thrombosis 2.0 - 3.0 (orthopedic surgery), Prophylaxis of venous thrombosis (other than high-risk surgery), Treatment of Deep Vein Thrombosis/Pulmonary Embolism, Prevention of systemic embolism - Tissue heart valves, Acute Myocardial Infarction (to prevent systemic embolism), Valvular heart disease, Atrial Fibrillation, Bileaflet mechanical valve in aortic position.2. Mechanical prosthetic valves (high risk), 2.5 - 3.5 Presence of Lupus Anticoagulant or Antiphospholipid Antibodies, Prevention of systemic embolism - Acute Myocardial Infarction (to prevent recurrent infarct). COMMENTS: On arrivalTHROMBOPLASTIN TIME [id number] 15:01:00* Test Item Value Reference Range Interpretation Comme [facility] THROMBOPLASTIN TIME PARTIAL (test code = PTT) 35.2 Seconds 25.0-39.5 N Therapeutic Rang e: 58.8 - 96.0 Seconds Effective 09/04/2024 COMMENTS: On arrivalCBC W/AUTO [id number] 14:49:00* Test Item Value Reference Range Interpretation Comme [facility] WHITE BLOOD CELL (test code = WBC) 9.6 x10 3/uL 4.5-11.0 N RED BLOOD CELL (test code = RBC) 2.19 x10 6/uL 4.00-5.60 L HEMOGLOBIN (test code = HGB) 6.2 g/dL 12.5-16.9 LL Critical result called to Olga HIDALGO [id number] at 1447 10/21/24Nurse read back result and tech confirmed it's correct? YES ------ HEMATOCRIT (test code = HCT) 19.2 % 37.5-50.7 L MEAN CELL VOLUME (test code = MCV) 87.7 fL 81.0-99.0 N MEAN CELL HGB (test code = MCH) 28.3 pg 27.0-33.0 N MEAN CELL HGB CONCETRATION (test code = MCHC) 32.3 g/dL 33.0-37.0 L RED CELL DISTRIBUTION WIDTH CV (test code = RDW) 13.4 % 11.5-14.5 N RED CELL DISTRIBUTION WIDTH SD (test code = RDW-SD) 43.1 fL 37.0-54.0 N PLATELET COUNT (test code = PLT) 253 x10 3/uL 150-400 N MEAN PLATELET VOLUME (test code = MPV) 8.9 fL 7.0-9.0 N NEUTROPHIL % (test code = NT%) 85.8 % 56.0-77.0 H IMMATURE GRANULOCYTE % (test code = IG%) 0.8 % 0.0-2.0 N LYMPHOCYTE % (test code = LY%) 12.1 % 14.0-32.0 L MONOCYTE % (test code = MO%) 0.6 % 4.8-9.0 L EOSINOPHIL % (test code = EO%) 0.6 % 0.3-3.7 N BASOPHIL % (test code = BA%) 0.1 % 0.0-2.0 N NUCLEATED RBC % (test code = NRBC%) 0.0 % 0-0 N NEUTROPHIL # (test code = NT#) 8.24 x10 3/uL 2.0-7.6 H IMMATURE GRANULOCYTE # (test code = IG#) 0.08 x10 3/uL 0.00-0.03 H LYMPHOCYTE # (test code = LY#) 1.16 x10 3/uL 1.0-3.8 N MONOCYTE # (test code = MO#) 0.06 x10 3/uL 0.1-0.8 L EOSINOPHIL # (test code = EO#) 0.06 x10 3/uL 0.0-0.2 N BASOPHIL # (test code = BA#) 0.01 x10 3/uL 0.0-0.2 N NUCLEATED RBC # (test code = NRBC#) 0.00 x10 3/uL 0.0-0.1 N COMMENTS: On arrivalBASIC METABOLIC [id number] 14:34:00* Test Item Value Reference Range Interpretation Comme nts SODIUM (test code = NA/ABG) 143 mmol/L 134-147 N POTASSIUM (test code = K/ABG) 4.5 mmol/L 3.4-5.0 N CHLORIDE (test code = CL/ABG) 106 mmol/L 100-108 N CREATININE ABG (test code = CREAABG) 1.1 mg/dL 0.6-1.3 N POC IONIZED CALCIUM (test co de = POCCA) 1.44 MMOL/L 1.12-1.32 H POC GLUCOSE (test code = POCGLU) 159 MG/DL 70-110 H HEMOGLOBIN [id number] 14:34:00* Test Item Value Reference Range Interpretation Comme nts HEMOGLOBIN ABG (test code = HGB/ABG) 6.9 G/DL 12.5-16.9 L [id number] 14:34:00* Test Item Value Reference Range Interpretation Comme nts HEMATOCRIT (test code = HCT/ABG) 20 % 38-51 L POC ARTERIAL BLOOD [id number] 14:34:00* Test Item Value Reference Range Interpretation Comme nts POC ARTERIAL BLOOD GAS PH (test code = POCPHA) 7.367 7.35-7.45 N POC ARTERIAL BLOOD GAS PCO2 (test code = LEDAHX4B) 50.6 mmHg 35.0-45 HH POC TCO2 ARTERIAL (test code = POCTCO2) 30.6 22-29 H POC ARTERIAL BLOOD GAS PO2 (test code = JWLOC9C) 127.8 mmHg 80-100.0 H POC HCO3 ARTERIAL (test code = RGNEQZ0S) 29.1 MMOL/L 22.0-26.0 HH POC BASE EXCESS (test code = POCBEA) 3.8 MMOL/L See_Comment N [Automated messa ge] The system which generated this result transmitted reference range: 0-+/-4. The reference range was not used to interpret this result as normal/abnormal. POC O2 SATURATION (test code = POCO2S) 98.7 % 90-100 N FIO2 (test code = FIO2A) 50 % PaO2/FiO2 (test code = [id number]) 255.60 mm/Hg ABG DELIVERY (test code = LEENA) Adult Vent ABG VENT MODE (test code = MODEA) AC ABG VENT RESP RATE (test code = RRA) 20 /MIN ABG TIDAL VOLUME (test code = TVA) 500 ml ABG PEEP (test code = PEEPA) 5 cmH2O ABG TEMPERATURE (test code = TEMPA) 97.7 F ABG SITE (test code = SITEA) Art Line EDUARDA'S TEST (test code = ALLENS) N/A [id number] 14:06:00* Test Item Value Reference Range Interpretation Comme nts ACT-ISTAT (test code = ACTI) 124 SEC 74-137 N Performed by cer tified 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 at [facility] POC ARTERIAL BLOOD [id number] 13:59:00* Test Item Value Reference Range Interpretation Comme nts POC ARTERIAL BLOOD GAS PH (test code = POCPHA) 7.337 7.35-7.45 L POC ARTERIAL BLOOD GAS PCO2 (test code = EKCYYV7F) 43.3 mmHg 35.0-45 N POC TCO2 ARTERIAL (test code = POCTCO2) 24.5 22-29 N POC ARTERIAL BLOOD GAS PO2 (test code = SAFHM7U) 392.1 mmHg 80-100.0 HH POC HCO3 ARTERIAL (test code = HFMQRF6X) 23.2 MMOL/L 22.0-26.0 N POC BASE EXCESS (test code = POCBEA) -2.5 MMOL/L See_Comment L [Automated messa ge] The system which generated this result transmitted reference range: 0-+/-4. The reference range was not used to interpret this result as normal/abnormal. POC O2 SATURATION (test code = POCO2S) 100.0 % 90-100 N BASIC METABOLIC [id number] 13:59:00* Test Item Value Reference Range Interpretation Comme nts SODIUM (test code = NA/ABG) 141 mmol/L 134-147 N POTASSIUM (test code = K/ABG) 4.9 mmol/L 3.4-5.0 N CHLORIDE (test code = CL/ABG) 108 mmol/L 100-108 N CREATININE ABG (test code = CREAABG) 1.1 mg/dL 0.6-1.3 N POC IONIZED CALCIUM (test co de = POCCA) 1.29 MMOL/L 1.12-1.32 N POC GLUCOSE (test code = POCGLU) 170 MG/DL 70-110 H HEMOGLOBIN [id number] 13:59:00* Test Item Value Reference Range Interpretation Comme nts HEMOGLOBIN ABG (test code = HGB/ABG) 6.7 G/DL 12.5-16.9 L [id number] 13:59:00* Test Item Value Reference Range Interpretation Comme nts HEMATOCRIT (test code = HCT/ABG) 20 % 38-51 L POC LACTIC [id number] 13:59:00* Test Item Value Reference Range Interpretation Comme nts POC LACTIC ACID (test code = POCLAC) 2.0 mmol/l 0.9-1.7 H [id number] 13:43:00* Test Item Value Reference Range Interpretation Comme nts ACT-ISTAT (test code = ACTI) 117 SEC 74-137 N Performed by cer tified 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 at [facility] POC ARTERIAL BLOOD [id number] 13:37:00* Test Item Value Reference Range Interpretation Comme nts POC ARTERIAL BLOOD GAS PH (test code = POCPHA) 7.302 7.35-7.45 L POC ARTERIAL BLOOD GAS PCO2 (test code = FPKBXR3C) 39.2 mmHg 35.0-45 N POC TCO2 ARTERIAL (test code = POCTCO2) 20.6 22-29 L POC ARTERIAL BLOOD GAS PO2 (test code = GYRNN2J) 354.2 mmHg 80-100.0 HH POC HCO3 ARTERIAL (test code = AFUGEG5T) 19.4 MMOL/L 22.0-26.0 L POC BASE EXCESS (test code = POCBEA) -6.4 MMOL/L See_Comment L [Automated messa ge] The system which generated this result transmitted reference range: 0-+/-4. The reference range was not used to interpret this result as normal/abnormal. POC O2 SATURATION (test code = POCO2S) 99.9 % 90-100 N BASIC METABOLIC [id number] 13:37:00* Test Item Value Reference Range Interpretation Comme nts SODIUM (test code = NA/ABG) 138 mmol/L 134-147 N POTASSIUM (test code = K/ABG) 5.3 mmol/L 3.4-5.0 H CHLORIDE (test code = CL/ABG) 110 mmol/L 100-108 H CREATININE ABG (test code = CREAABG) 1.1 mg/dL 0.6-1.3 N POC IONIZED CALCIUM (test co de = POCCA) 1.63 MMOL/L 1.12-1.32 HH POC GLUCOSE (test code = POCGLU) 184 MG/DL 70-110 H HEMOGLOBIN [id number] 13:37:00* Test Item Value Reference Range Interpretation Comme nts HEMOGLOBIN ABG (test code = HGB/ABG) 5.9 G/DL 12.5-16.9 L [id number] 13:37:00* Test Item Value Reference Range Interpretation Comme nts HEMATOCRIT (test code = HCT/ABG) 17 % 38-51 L POC LACTIC [id number] 13:37:00* Test Item Value Reference Range Interpretation Comme nts POC LACTIC ACID (test code = POCLAC) 2.3 mmol/l 0.9-1.7 H [id number] 13:24:00* Test Item Value Reference Range Interpretation Comme nts ACT-ISTAT (test code = ACTI) 481 SEC 74-137 H Performed by cer tified 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 at [facility] POC ARTERIAL BLOOD [id number] 13:12:00* Test Item Value Reference Range Interpretation Comme nts POC ARTERIAL BLOOD GAS PH (test code = POCPHA) 7.445 7.35-7.45 N POC ARTERIAL BLOOD GAS PCO2 (test code = AKPWOG4S) 36.3 mmHg 35.0-45 N POC TCO2 ARTERIAL (test code = POCTCO2) 26.0 22-29 N POC ARTERIAL BLOOD GAS PO2 (test code = UNTVE2D) 487.9 mmHg 80-100.0 HH POC HCO3 ARTERIAL (test code = ULOCVD3O) 24.9 MMOL/L 22.0-26.0 N POC BASE EXCESS (test code = POCBEA) 0.8 MMOL/L See_Comment N [Automated messa ge] The system which generated this result transmitted reference range: 0-+/-4. The reference range was not used to interpret this result as normal/abnormal. POC O2 SATURATION (test code = POCO2S) 100.0 % 90-100 N BASIC METABOLIC [id number] 13:12:00* Test Item Value Reference Range Interpretation Comme nts SODIUM (test code = NA/ABG) 137 mmol/L 134-147 N POTASSIUM (test code = K/ABG) 6.4 mmol/L 3.4-5.0 HH CHLORIDE (test code = CL/ABG) 101 mmol/L 100-108 N CREATININE ABG (test code = CREAABG) 1.2 mg/dL 0.6-1.3 N POC IONIZED CALCIUM (test co de = POCCA) 1.17 MMOL/L 1.12-1.32 N POC GLUCOSE (test code = POCGLU) 180 MG/DL 70-110 H HEMOGLOBIN [id number] 13:12:00* Test Item Value Reference Range Interpretation Comme nts HEMOGLOBIN ABG (test code = HGB/ABG) 6.3 G/DL 12.5-16.9 L [id number] 13:12:00* Test Item Value Reference Range Interpretation Comme nts HEMATOCRIT (test code = HCT/ABG) 18 % 38-51 L POC LACTIC [id number] 13:12:00* Test Item Value Reference Range Interpretation Comme nts POC LACTIC ACID (test code = POCLAC) 2.3 mmol/l 0.9-1.7 H [id number] 12:55:00* Test Item Value Reference Range Interpretation Comme nts ACT-ISTAT (test code = ACTI) 561 SEC 74-137 H Performed by cer tified 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 at [facility] POC ARTERIAL BLOOD [id number] 12:47:00* Test Item Value Reference Range Interpretation Comme nts POC ARTERIAL BLOOD GAS PH (test code = POCPHA) 7.386 7.35-7.45 N POC ARTERIAL BLOOD GAS PCO2 (test code = EDISIH7E) 38.2 mmHg 35.0-45 N POC TCO2 ARTERIAL (test code = POCTCO2) 24.1 22-29 N POC ARTERIAL BLOOD GAS PO2 (test code = CAFCJ5V) 479.0 mmHg 80-100.0 HH POC HCO3 ARTERIAL (test code = TGKXUB6A) 22.9 MMOL/L 22.0-26.0 N POC BASE EXCESS (test code = POCBEA) -1.9 MMOL/L See_Comment L [Automated messa ge] The system which generated this result transmitted reference range: 0-+/-4. The reference range was not used to interpret this result as normal/abnormal. POC O2 SATURATION (test code = POCO2S) 100.0 % 90-100 N BASIC METABOLIC [id number] 12:47:00* Test Item Value Reference Range Interpretation Comme nts SODIUM (test code = NA/ABG) 138 mmol/L 134-147 N POTASSIUM (test code = K/ABG) 6.1 mmol/L 3.4-5.0 HH CHLORIDE (test code = CL/ABG) 106 mmol/L 100-108 N CREATININE ABG (test code = CREAABG) 1.3 mg/dL 0.6-1.3 N POC IONIZED CALCIUM (test co de = POCCA) 1.24 MMOL/L 1.12-1.32 N POC GLUCOSE (test code = POCGLU) 163 MG/DL 70-110 H HEMOGLOBIN [id number] 12:47:00* Test Item Value Reference Range Interpretation Comme nts HEMOGLOBIN ABG (test code = HGB/ABG) 6.9 G/DL 12.5-16.9 L [id number] 12:47:00* Test Item Value Reference Range Interpretation Comme nts HEMATOCRIT (test code = HCT/ABG) 20 % 38-51 L POC LACTIC [id number] 12:47:00* Test Item Value Reference Range Interpretation Comme nts POC LACTIC ACID (test code = POCLAC) 1.5 mmol/l 0.9-1.7 N [id number] 12:33:00* Test Item Value Reference Range Interpretation Comme nts ACT-ISTAT (test code = ACTI) 809 SEC 74-137 H Performed by cer tified 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 at [facility] POC ARTERIAL BLOOD [id number] 12:22:00* Test Item Value Reference Range Interpretation Comme nts POC ARTERIAL BLOOD GAS PH (test code = POCPHA) 7.320 7.35-7.45 L POC ARTERIAL BLOOD GAS PCO2 (test code = PUSDHB8L) 52.2 mmHg 35.0-45 HH POC TCO2 ARTERIAL (test code = POCTCO2) 28.5 22-29 N POC ARTERIAL BLOOD GAS PO2 (test code = UDKTK3J) 494.4 mmHg 80-100.0 HH POC HCO3 ARTERIAL (test code = CFFPLQ1T) 26.9 MMOL/L 22.0-26.0 H POC BASE EXCESS (test code = POCBEA) 0.5 MMOL/L See_Comment N [Automated messa ge] The system which generated this result transmitted reference range: 0-+/-4. The reference range was not used to interpret this result as normal/abnormal. POC O2 SATURATION (test code = POCO2S) 100.0 % 90-100 N BASIC METABOLIC [id number] 12:22:00* Test Item Value Reference Range Interpretation Comme nts SODIUM (test code = NA/ABG) 141 mmol/L 134-147 N POTASSIUM (test code = K/ABG) 5.5 mmol/L 3.4-5.0 H CHLORIDE (test code = CL/ABG) 106 mmol/L 100-108 N CREATININE ABG (test code = CREAABG) 1.1 mg/dL 0.6-1.3 N POC IONIZED CALCIUM (test co de = POCCA) 1.31 MMOL/L 1.12-1.32 N POC GLUCOSE (test code = POCGLU) 171 MG/DL 70-110 H HEMOGLOBIN [id number] 12:22:00* Test Item Value Reference Range Interpretation Comme nts HEMOGLOBIN ABG (test code = HGB/ABG) 7.5 G/DL 12.5-16.9 L [id number] 12:22:00* Test Item Value Reference Range Interpretation Comme nts HEMATOCRIT (test code = HCT/ABG) 22 % 38-51 L POC LACTIC [id number] 12:22:00* Test Item Value Reference Range Interpretation Comme nts POC LACTIC ACID (test code = POCLAC) 1.6 mmol/l 0.9-1.7 N [id number] 12:07:00* Test Item Value Reference Range Interpretation Comme nts ACT-ISTAT (test code = ACTI) 395 SEC 74-137 H Performed by cer tified 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 at [facility] [id number] 11:23:00* Test Item Value Reference Range Interpretation Comme nts ACT-ISTAT (test code = ACTI) 579 SEC 74-137 H Performed by cer yesika 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 at [facility] POC ARTERIAL BLOOD [id number] 11:15:00* Test Item Value Reference Range Interpretation Comme nts POC ARTERIAL BLOOD GAS PH (test code = POCPHA) 7.206 7.35-7.45 LL POC ARTERIAL BLOOD GAS PCO2 (test code = DCBNGQ1O) 64.2 mmHg 35.0-45 HH POC TCO2 ARTERIAL (test code = POCTCO2) 27.5 22-29 N POC ARTERIAL BLOOD GAS PO2 (test code = HVPYY5H) 491.5 mmHg 80-100.0 HH POC HCO3 ARTERIAL (test code = AANPEG3X) 25.5 MMOL/L 22.0-26.0 N POC BASE EXCESS (test code = POCBEA) -3.3 MMOL/L See_Comment L [Automated messa ge] The system which generated this result transmitted reference range: 0-+/-4. The reference range was not used to interpret this result as normal/abnormal. POC O2 SATURATION (test code = POCO2S) 100.0 % 90-100 N BASIC METABOLIC [id number] 11:15:00* Test Item Value Reference Range Interpretation Comme nts SODIUM (test code = NA/ABG) 143 mmol/L 134-147 N POTASSIUM (test code = K/ABG) 4.0 mmol/L 3.4-5.0 N CHLORIDE (test code = CL/ABG) 110 mmol/L 100-108 H CREATININE ABG (test code = CREAABG) 1.0 mg/dL 0.6-1.3 N POC IONIZED CALCIUM (test co de = POCCA) 1.15 MMOL/L 1.12-1.32 N POC GLUCOSE (test code = POCGLU) 139 MG/DL 70-110 H HEMOGLOBIN [id number] 11:15:00* Test Item Value Reference Range Interpretation Comme nts HEMOGLOBIN ABG (test code = HGB/ABG) 11.3 G/DL 12.5-16.9 L [id number] 11:15:00* Test Item Value Reference Range Interpretation Comme nts HEMATOCRIT (test code = HCT/ABG) 33 % 38-51 L POC LACTIC [id number] 11:15:00* Test Item Value Reference Range Interpretation Comme nts POC LACTIC ACID (test code = POCLAC) < 0.3 mmol/l 0.9-1.7 L [id number] 10:36:00* Test Item Value Reference Range Interpretation Comme nts ACT-ISTAT (test code = ACTI) 147 SEC 74-137 H Performed by cer tified 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 at [facility] POC ARTERIAL BLOOD [id number] 10:35:00* Test Item Value Reference Range Interpretation Comme nts POC ARTERIAL BLOOD GAS PH (test code = POCPHA) 7.406 7.35-7.45 N POC ARTERIAL BLOOD GAS PCO2 (test code = WGBHFS7R) 34.5 mmHg 35.0-45 L POC TCO2 ARTERIAL (test code = POCTCO2) 22.7 22-29 N POC ARTERIAL BLOOD GAS PO2 (test code = LMAPB1T) 554.3 mmHg 80-100.0 HH POC HCO3 ARTERIAL (test code = LRFUPD7Q) 21.6 MMOL/L 22.0-26.0 L POC BASE EXCESS (test code = POCBEA) -2.4 MMOL/L See_Comment L [Automated messa ge] The system which generated this result transmitted reference range: 0-+/-4. The reference range was not used to interpret this result as normal/abnormal. POC O2 SATURATION (test code = POCO2S) 100.0 % 90-100 N BASIC METABOLIC [id number] 10:35:00* Test Item Value Reference Range Interpretation Comme nts SODIUM (test code = NA/ABG) 145 mmol/L 134-147 N POTASSIUM (test code = K/ABG) 4.3 mmol/L 3.4-5.0 N CHLORIDE (test code = CL/ABG) 110 mmol/L 100-108 H CREATININE ABG (test code = CREAABG) 1.0 mg/dL 0.6-1.3 N POC IONIZED CALCIUM (test co de = POCCA) 1.21 MMOL/L 1.12-1.32 N POC GLUCOSE (test code = POCGLU) 107 MG/DL 70-110 N HEMOGLOBIN [id number] 10:35:00* Test Item Value Reference Range Interpretation Comme nts HEMOGLOBIN ABG (test code = HGB/ABG) 13.3 G/DL 12.5-16.9 N [id number] 10:35:00* Test Item Value Reference Range Interpretation Comme nts HEMATOCRIT (test code = HCT/ABG) 39 % 38-51 N POC LACTIC [id number] 10:35:00* Test Item Value Reference Range Interpretation Comme nts POC LACTIC ACID (test code = POCLAC) < 0.3 mmol/l 0.9-1.7 L PLATELET [id number] 10:18:00* Test Item Value Reference Range Interpretation Comme nts Heparinase maximum amplitude (test code = HKHMA) 68.0 mm 53-68 N ActivatorF maximum amplitude (test code = ACTFMA) 19.9 mm 2-19 H PLT ADP % INHIBITION (test c ode = ADPINH) 14.6 % 0-17 N ADP 5M (test code = ADP5M) 85.4 % 83-100 N ADP 6M (test code = ADP6M) 61.0 mm 45-69 N ARACHIDONIC ACID (test code = ARACH) 16.8 % 89-100 L Arachidonic acid maximum amp (test code = AAMA) 28.0 MM 51-71 L Arachidonic acid inhibition (test code = AAINH) 83.2 % 0-11 H DRUGS OF ABUSE SCREEN [id number] 09:42:00* Test Item Value Reference Range Interpretation Comme nts URN COCAINE (test code = COCAURN) NEGATIVE NEGATIVE URN CANNABINOIDS (test code = CANNABURN) POSITIVE NEGATIVE A URN AMPHETAMINE (test code = AMPHETURN) NEGATIVE NEGATIVE URN BARBITURATE (test code = BARBITURN) NEGATIVE NEGATIVE URN BENZODIAZEPINE (test code = BENZOURN) NEGATIVE NEGATIVE Cut-off v alue:200 ng/mL URN OPIATES (test code = OPIATURN) NEGATIVE NEGATIVE Cut-off value:20 00 ng/mL URN PHENCYCLIDINE (PCP) (test code = PHENCURN) NEGATIVE NEGATIVE Cutoffs:B arbiturates 200 ng/mLBenzodiazepines 200 ng/mLTHC Cannabinoids 50 ng/mLOpiates(Morphine) 2000 ng/mLAmphetamine 1000 ng/mLCocaine 300 ng/mLPCP phencyclidine 25 ng/mL Unconfirmed screening results shouldnot be used for non-medical purposes. PLT RESPONSE TO [id number] 08:29:00* Test Item Value Reference Range Interpretation Comme nts PLT RESPONSE TO PLAVIX (test code = PLAVRES) 119 PRU 182-335 L Values <18 0 PRU are specific evidence of a P2Y12 inhibitoreffect. Testing can only be performed if patient sample values are within the following ranges: Hematocrit 33-52%, Platelet Count 119,000-502,000/uL. Patient values outside of theseranges will be rejected by our instrumentation. BASIC METABOLIC [id number] 07:40:00* Test Item Value Reference Range Interpretation Comme nts SODIUM (test code = NA) 140 mEq/L 134-147 N POTASSIUM (test code = K) 4.2 mEq/L 3.4-5.0 N CHLORIDE (test code = CL) 104 mEq/L 100-108 N CARBON DIOXIDE (test code = CO2) 27 mEq/l 21-33 N ANION GAP (test code = GAP) 13 0-20 N GLUCOSE (test code = GLU) 95 mg/dL 77-141 N BLOOD UREA NITROGEN (test code = BUN) 25 mg/dL 7-25 N GLOMERULAR FILTRATION RATE (test code = GFR) 96.6 80-90 H The Glomerular Filtration Rate is a calculated parameterbased on serum Creatinine, patient age and sex. GFR valuesless than 60 mL/min/1.73 square meters are indicative ofChronic Kidney Disease. Values less than 15 mL/min/1.73square meters indicate Kidney failure. The calculation forGFR is based on the CKD-EPI (202) calculation. This formulais race indifferent and is the recommended formula for GFRby the National Kidney Foundation for Adults.The GFR will not calculate if the sex is unknown or if thepatient's age is <18 years. CREATININE (test code = CREAT) 0.9 mg/dL 0.6-1.3 N CALCIUM (test code = CA) 10.0 mg/dL 8.0-10.5 N [id number] 07:40:00* Test Item Value Reference Range Interpretation Comme nts MAGNESIUM (test code = MAG) 2.06 mg/dL 1.6-2.6 N CBC W/AUTO [id number] 07:15:00* Test Item Value Reference Range Interpretation Comme nts WHITE BLOOD CELL (test code = WBC) 9.5 x10 3/uL 4.5-11.0 N RED BLOOD CELL (test code = RBC) 4.67 x10 6/uL 4.00-5.60 N HEMOGLOBIN (test code = HGB) 13.1 g/dL 12.5-16.9 N HEMATOCRIT (test code = HCT) 40.1 % 37.5-50.7 N MEAN CELL VOLUME (test code = MCV) 85.9 fL 81.0-99.0 MEAN CELL HGB (test code = MCH) 28.1 pg 27.0-33.0 N MEAN CELL HGB CONCETRATION (test code = MCHC) 32.7 g/dL 33.0-37.0 L RED CELL DISTRIBUTION WIDTH CV (test code = RDW) 13.5 % 11.5-14.5 N RED CELL DISTRIBUTION WIDTH SD (test code = RDW-SD) 42.1 fL 37.0-54.0 N PLATELET COUNT (test code = PLT) 404 x10 3/uL 150-400 H MEAN PLATELET VOLUME (test c ode = MPV) 8.4 fL 7.0-9.0 N NEUTROPHIL % (test code = NT%) 59.7 % 56.0-77.0 N IMMATURE GRANULOCYTE % (test code = IG%) 0.3 % 0.0-2.0 N LYMPHOCYTE % (test code = LY%) 28.1 % 14.0-32.0 N MONOCYTE % (test code = MO%) 8.7 % 4.8-9.0 N EOSINOPHIL % (test code = EO%) 2.6 % 0.3-3.7 N BASOPHIL % (test code = BA%) 0.6 % 0.0-2.0 N NUCLEATED RBC % (test code = NRBC%) 0.0 % 0-0 N NEUTROPHIL # (test code = NT#) 5.63 x10 3/uL 2.0-7.6 N IMMATURE GRANULOCYTE # (test code = IG#) 0.03 x10 3/uL 0.00-0.03 N LYMPHOCYTE # (test code = LY#) 2.66 x10 3/uL 1.0-3.8 N MONOCYTE # (test code = MO#) 0.82 x10 3/uL 0.1-0.8 H EOSINOPHIL # (test code = EO#) 0.25 x10 3/uL 0.0-0.2 H BASOPHIL # (test code = BA#) 0.06 x10 3/uL 0.0-0.2 N NUCLEATED RBC # (test code = NRBC#) 0.00 x10 3/uL 0.0-0.1 N BASIC METABOLIC [id number] 09:57:00* Test Item Value Reference Range Interpretation Comme nts SODIUM (test code = NA) 141 mEq/L 134-147 N POTASSIUM (test code = K) 3.9 mEq/L 3.4-5.0 N CHLORIDE (test code = CL) 106 mEq/L 100-108 N CARBON DIOXIDE (test code = CO2) 31 mEq/l 21-33 N ANION GAP (test code = GAP) 8 0-20 N GLUCOSE (test code = GLU) 126 mg/dL 77-141 BLOOD UREA NITROGEN (test code = BUN) 23 mg/dL 7-25 N GLOMERULAR FILTRATION RATE (test code = GFR) 85.1 80-90 N The Glomerular Filtration Rate is a calculated parameterbased on serum Creatinine, patient age and sex. GFR valuesless than 60 mL/min/1.73 square meters are indicative ofChronic Kidney Disease. Values less than 15 mL/min/1.73square meters indicate Kidney failure. The calculation forGFR is based on the CKD-EPI (2020) calculation. This formulais race indifferent and is the recommended formula for GFRby the National Kidney Foundation for Adults.The GFR will not calculate if the sex is unknown or if thepatient's age is <18 years. CREATININE (test code = CREAT) 1.0 mg/dL 0.6-1.3 N CALCIUM (test code = CA) 10.0 mg/dL 8.0-10.5 N [id number] 09:57:00* Test Item Value Reference Range Interpretation Comme nts MAGNESIUM (test code = MAG) 2.13 mg/dL 1.6-2.6 N PLT RESPONSE TO [id number] 07:58:00* Test Item Value Reference Range Interpretation Comme nts PLT RESPONSE TO PLAVIX (test code = PLAVRES) 109 PRU 182-335 L Values <18 0 PRU are specific evidence of a P2Y12 inhibitoreffect. Testing can only be performed if patient sample values are within the following ranges: Hematocrit 33-52%, Platelet Count 119,000-502,000/uL. Patient values outside of theseranges will be rejected by our instrumentation. PLATELET [id number] 07:49:00* Test Item Value Reference Range Interpretation Comme nts Heparinase maximum amplitude (test code = HKHMA) 68.7 mm 53-68 H ActivatorF maximum amplitude (test code = ACTFMA) 23.5 mm 2-19 H PLT ADP % INHIBITION (test c ode = ADPINH) 20.6 % 0-17 H ADP 5M (test code = ADP5M) 79.4 % 83-100 L ADP 6M (test code = ADP6M) 59.4 mm 45-69 N ARACHIDONIC ACID (test code = ARACH) 14.4 % 89-100 L Arachidonic acid maximum amp (test code = AAMA) 30.0 MM 51-71 L Arachidonic acid inhibition (test code = AAINH) 85.6 % 0-11 H CBC W/AUTO [id number] 07:29:00* Test Item Value Reference Range Interpretation Comme nts WHITE BLOOD CELL (test code = WBC) 8.6 x10 3/uL 4.5-11.0 N RED BLOOD CELL (test code = RBC) 4.58 x10 6/uL 4.00-5.60 N HEMOGLOBIN (test code = HGB) 12.9 g/dL 12.5-16.9 N HEMATOCRIT (test code = HCT) 40.8 % 37.5-50.7 N MEAN CELL VOLUME (test code = MCV) 89.1 fL 81.0-99.0 N MEAN CELL HGB (test code = MCH) 28.2 pg 27.0-33.0 N MEAN CELL HGB CONCETRATION (test code = MCHC) 31.6 g/dL 33.0-37.0 L RED CELL DISTRIBUTION WIDTH CV (test code = RDW) 13.1 % 11.5-14.5 N RED CELL DISTRIBUTION WIDTH SD (test code = RDW-SD) 42.9 fL 37.0-54.0 N PLATELET COUNT (test code = PLT) 423 x10 3/uL 150-400 H MEAN PLATELET VOLUME (test c ode = MPV) 8.6 fL 7.0-9.0 N NEUTROPHIL % (test code = NT%) 60.7 % 56.0-77.0 N IMMATURE GRANULOCYTE % (test code = IG%) 0.2 % 0.0-2.0 N LYMPHOCYTE % (test code = LY%) 26.4 % 14.0-32.0 N MONOCYTE % (test code = MO%) 9.0 % 4.8-9.0 N EOSINOPHIL % (test code = EO%) 3.1 % 0.3-3.7 N BASOPHIL % (test code = BA%) 0.6 % 0.0-2.0 N NUCLEATED RBC % (test code = NRBC%) 0.0 % 0-0 N NEUTROPHIL # (test code = NT#) 5.24 x10 3/uL 2.0-7.6 N IMMATURE GRANULOCYTE # (test code = IG#) 0.02 x10 3/uL 0.00-0.03 N LYMPHOCYTE # (test code = LY#) 2.28 x10 3/uL 1.0-3.8 N MONOCYTE # (test code = MO#) 0.78 x10 3/uL 0.1-0.8 N EOSINOPHIL # (test code = EO#) 0.27 x10 3/uL 0.0-0.2 H BASOPHIL # (test code = BA#) 0.05 x10 3/uL 0.0-0.2 N NUCLEATED RBC # (test code = NRBC#) 0.00 x10 3/uL 0.0-0.1 N CBC W/AUTO [id number] 07:18:00* Test Item Value Reference Range Interpretation Comme nts WHITE BLOOD CELL (test code = WBC) 8.3 x10 3/uL 4.5-11.0 N RED BLOOD CELL (test code = RBC) 4.46 x10 6/uL 4.00-5.60 N HEMOGLOBIN (test code = HGB) 12.5 g/dL 12.5-16.9 N HEMATOCRIT (test code = HCT) 38.6 % 37.5-50.7 N MEAN CELL VOLUME (test code = MCV) 86.5 fL 81.0-99.0 MEAN CELL HGB (test code = MCH) 28.0 pg 27.0-33.0 N MEAN CELL HGB CONCETRATION (test code = MCHC) 32.4 g/dL 33.0-37.0 L RED CELL DISTRIBUTION WIDTH CV (test code = RDW) 13.4 % 11.5-14.5 N RED CELL DISTRIBUTION WIDTH SD (test code = RDW-SD) 42.2 fL 37.0-54.0 N PLATELET COUNT (test code = PLT) 376 x10 3/uL 150-400 N MEAN PLATELET VOLUME (test c ode = MPV) 8.4 fL 7.0-9.0 N NEUTROPHIL % (test code = NT%) 60.4 % 56.0-77.0 N IMMATURE GRANULOCYTE % (test code = IG%) 0.2 % 0.0-2.0 N LYMPHOCYTE % (test code = LY%) 25.3 % 14.0-32.0 N MONOCYTE % (test code = MO%) 10.1 % 4.8-9.0 H EOSINOPHIL % (test code = EO%) 3.5 % 0.3-3.7 N BASOPHIL % (test code = BA%) 0.5 % 0.0-2.0 N NUCLEATED RBC % (test code = NRBC%) 0.0 % 0-0 N NEUTROPHIL # (test code = NT#) 5.01 x10 3/uL 2.0-7.6 N IMMATURE GRANULOCYTE # (test code = IG#) 0.02 x10 3/uL 0.00-0.03 N LYMPHOCYTE # (test code = LY#) 2.10 x10 3/uL 1.0-3.8 N MONOCYTE # (test code = MO#) 0.84 x10 3/uL 0.1-0.8 H EOSINOPHIL # (test code = EO#) 0.29 x10 3/uL 0.0-0.2 H BASOPHIL # (test code = BA#) 0.04 x10 3/uL 0.0-0.2 N NUCLEATED RBC # (test code = NRBC#) 0.00 x10 3/uL 0.0-0.1 N BASIC METABOLIC [id number] 06:44:00* Test Item Value Reference Range Interpretation Comme nts SODIUM (test code = NA) 141 mEq/L 134-147 N POTASSIUM (test code = K) 3.9 mEq/L 3.4-5.0 N CHLORIDE (test code = CL) 108 mEq/L 100-108 N CARBON DIOXIDE (test code = CO2) 28 mEq/l 21-33 N ANION GAP (test code = GAP) 9 0-20 N GLUCOSE (test code = GLU) 96 mg/dL 77-141 N BLOOD UREA NITROGEN (test code = BUN) 23 mg/dL 7-25 N GLOMERULAR FILTRATION RATE (test code = GFR) 85.1 80-90 N The Glomerular Filtration Rate is a calculated parameterbased on serum Creatinine, patient age and sex. GFR valuesless than 60 mL/min/1.73 square meters are indicative ofChronic Kidney Disease. Values less than 15 mL/min/1.73square meters indicate Kidney failure. The calculation forGFR is based on the CKD-EPI (2020) calculation. This formulais race indifferent and is the recommended formula for GFRby the National Kidney Foundation for Adults.The GFR will not calculate if the sex is unknown or if thepatient's age is <18 years. CREATININE (test code = CREAT) 1.0 mg/dL 0.6-1.3 N CALCIUM (test code = CA) 9.6 mg/dL 8.0-10.5 N [id number] 06:44:00* Test Item Value Reference Range Interpretation Comme nts MAGNESIUM (test code = MAG) 1.97 mg/dL 1.6-2.6 N PLT RESPONSE TO [id number] 18:12:00* Test Item Value Reference Range Interpretation Comme nts PLT RESPONSE TO PLAVIX (test code = PLAVRES) 87 PRU 182-335 L Values <18 0 PRU are specific evidence of a P2Y12 inhibitoreffect. Testing can only be performed if patient sample values are within the following ranges: Hematocrit 33-52%, Platelet Count 119,000-502,000/uL. Patient values outside of theseranges will be rejected by our instrumentation. CBC W/AUTO [id number] 05:59:00* Test Item Value Reference Range Interpretation Comme nts WHITE BLOOD CELL (test code = WBC) 7.6 x10 3/uL 4.5-11.0 N RED BLOOD CELL (test code = RBC) 4.49 x10 6/uL 4.00-5.60 N HEMOGLOBIN (test code = HGB) 12.7 g/dL 12.5-16.9 N HEMATOCRIT (test code = HCT) 41.2 % 37.5-50.7 N MEAN CELL VOLUME (test code = MCV) 91.8 fL 81.0-99.0 MEAN CELL HGB (test code = MCH) 28.3 pg 27.0-33.0 N MEAN CELL HGB CONCETRATION (test code = MCHC) 30.8 g/dL 33.0-37.0 L RED CELL DISTRIBUTION WIDTH CV (test code = RDW) 13.5 % 11.5-14.5 N RED CELL DISTRIBUTION WIDTH SD (test code = RDW-SD) 46.2 fL 37.0-54.0 N PLATELET COUNT (test code = PLT) 314 x10 3/uL 150-400 N MEAN PLATELET VOLUME (test c ode = MPV) 8.6 fL 7.0-9.0 N NEUTROPHIL % (test code = NT%) 64.5 % 56.0-77.0 N IMMATURE GRANULOCYTE % (test code = IG%) 0.1 % 0.0-2.0 N LYMPHOCYTE % (test code = LY%) 24.3 % 14.0-32.0 N MONOCYTE % (test code = MO%) 7.5 % 4.8-9.0 N EOSINOPHIL % (test code = EO%) 3.3 % 0.3-3.7 N BASOPHIL % (test code = BA%) 0.3 % 0.0-2.0 N NUCLEATED RBC % (test code = NRBC%) 0.0 % 0-0 N NEUTROPHIL # (test code = NT#) 4.91 x10 3/uL 2.0-7.6 N IMMATURE GRANULOCYTE # (test code = IG#) 0.01 x10 3/uL 0.00-0.03 N LYMPHOCYTE # (test code = LY#) 1.85 x10 3/uL 1.0-3.8 N MONOCYTE # (test code = MO#) 0.57 x10 3/uL 0.1-0.8 N EOSINOPHIL # (test code = EO#) 0.25 x10 3/uL 0.0-0.2 H BASOPHIL # (test code = BA#) 0.02 x10 3/uL 0.0-0.2 N NUCLEATED RBC # (test code = NRBC#) 0.00 x10 3/uL 0.0-0.1 N PROTHROMBIN [id number] 05:54:00* Test Item Value Reference Range Interpretation Comme [facility] PROTHROMBIN TIME PATIENT (test code = PTP) 11.1 SECONDS 9.3-12.9 N INTERNATIONAL NORMAL RATIO (test code = INR) 1.0 0.8-1.2 N TARGET INR BY INDICATION Indication INR1. Prophylaxis of venous thrombosis 2.0 - 3.0 (orthopedic surgery), Prophylaxis of venous thrombosis (other than high-risk surgery), Treatment of Deep Vein Thrombosis/Pulmonary Embolism, Prevention of systemic embolism - Tissue heart valves, Acute Myocardial Infarction (to prevent systemic embolism), Valvular heart disease, Atrial Fibrillation, Bileaflet mechanical valve in aortic position.2. Mechanical prosthetic valves (high risk), 2.5 - 3.5 Presence of Lupus Anticoagulant or Antiphospholipid Antibodies, Prevention of systemic embolism - Acute Myocardial Infarction (to prevent recurrent infarct). THROMBOPLASTIN TIME [id number] 05:54:00* Test Item Value Reference Range Interpretation Comme [facility] THROMBOPLASTIN TIME PARTIAL (test code = PTT) 28.2 Seconds 25.0-39.5 N Therapeutic Rang e: 58.8 - 96.0 Seconds Effective 09/04/2024 HGBA1C%2024-10-17 05:54:00* Test Item Value Reference Range Interpretation Comme [facility] HGBA1C% (test code = HGBA1C%) 5.3 %A1C 4.8-6.0 N COMPREHENSIVE METABOLIC [id number] 05:47:00* Test Item Value Reference Range Interpretation Comme [facility] SODIUM (test code = NA) 140 mEq/L 134-147 N POTASSIUM (test code = K) 3.8 mEq/L 3.4-5.0 N CHLORIDE (test code = CL) 105 mEq/L 100-108 N CARBON DIOXIDE (test code = CO2) 28 mEq/l 21-33 N ANION GAP (test code = GAP) 11 0-20 N GLUCOSE (test code = GLU) 124 mg/dL 77-141 N BLOOD UREA NITROGEN (test code = BUN) 15 mg/dL 7-25 N GLOMERULAR FILTRATION RATE (test code = GFR) 96.6 80-90 H The Glomerular Filtration Rate is a calculated parameterbased on serum Creatinine, patient age and sex. GFR valuesless than 60 mL/min/1.73 square meters are indicative ofChronic Kidney Disease. Values less than 15 mL/min/1.73square meters indicate Kidney failure. The calculation forGFR is based on the CKD-EPI (2020) calculation. This formulais race indifferent and is the recommended formula for GFRby the National Kidney Foundation for Adults.The GFR will not calculate if the sex is unknown or if thepatient's age is <18 years. CREATININE (test code = CREAT) 0.9 mg/dL 0.6-1.3 N TOTAL PROTEIN (test code = PROT) 7.0 g/dL 6.4-8.2 N ALBUMIN (test code = ALB) 3.10 g/dL 3.4-5.0 L CALCIUM (test code = CA) 9.7 mg/dL 8.0-10.5 N BILIRUBIN TOTAL (test code = BILT) 0.30 mg/dL 0.0-1.0 N SGOT/AST (test code = AST) 16 IUnit/L 8-34 N SGPT/ALT (test code = ALT) 15 IUnit/L 10-49 N ALKALINE PHOSPHATASE TOTAL (test code = ALKP) 62 IUnit/L 20-125 N UA RFLX MICR CULT IF [id number] 00:24:00* Test Item Value Reference Range Interpretation Comme nts UA COLOR (test code = COLU) YELLOW YEL/STRAW UA APPEARANCE (test code = APPU) CLEAR CLEAR UA GLUCOSE DIPSTICK (test co de = DGLUU) NEGATIVE NEGATIVE UA BILIRUBIN DIPSTICK (test code = BILU) NEGATIVE NEGATIVE UA KETONE DIPSTICK (test cod e = KETU) NEGATIVE NEGATIVE UA SPECIFIC GRAVITY (test co de = SGU) 1.031 1.005-1.030 H UA BLOOD DIPSTICK (test code = OSCAR) NEGATIVE NEGATIVE UA PH DIPSTICK (test code = ALTA) 6.0 5.0-7.0 N UA PROTEIN DIPSTICK (test co de = PROU) NEGATIVE NEGATIVE UA UROBILINIOGEN DIPSTICK (test code = URO) 0.2 mg/dL 0.2-1.0 UA NITRITE DIPSTICK (test co de = YURIY) NEGATIVE NEGATIVE UA LEUKOCYTE ESTERASE DIPSTI CK (test code = LEUU) NEGATIVE NEGATIVE UA WBC (test code = WBCU) 0-3 WBC/HPF 0-3 UA RBC (test code = RBCU) 0-3 RBC/HPF 0-3 UA WBC NO REFLEX (test code = WBCUCL) 0-3 WBC/HPF 0-3 UA BACTERIA (test code = BACU) NONE SEEN /HPF NONE SEEN UA SQUAMOUS CELLS (test code = SQU) NONE SEEN /HPF NONE SEEN UA MUCUS (test code = MUCU) TRACE /LPF NONE SEEN Indication for culture: Flank Pain Dysuria/FrequencySpecimen Description: CLEAN CATCHTROP-I HIGH [id number] 08:02:00* Test Item Value Reference Range Interpretation Comme nts TROP-I HIGH SENSITIVITY (test code = TROPIHS) 67 ng/L 0-54 H CAUTION: Units o f the current test methodology (ng/L) differfrom the prior test methodology (ng/mL) by a factor of 1000. 99th Percentile Upper Reference Limit (URL): Females: 34 ng/LMales: 54 ng/L In order to distinguish acute elevations of high sensitivitytroponin from other clinical conditions, the FourthUniversal Definition of Myocardial Infarction stressesclinical assessment and the demonstration of a rise and/orfall in serial troponin results above the URL. These results were obtained using Siemens [employer] IM TnIHreagent. Results from different methodologies should not becompared to one another as quantitative results and URLs mayvary by method. BASIC METABOLIC [id number] 07:16:00* Test Item Value Reference Range Interpretation Comme nts SODIUM (test code = NA) 140 mEq/L 134-147 N POTASSIUM (test code = K) 4.1 mEq/L 3.4-5.0 N CHLORIDE (test code = CL) 106 mEq/L 100-108 N CARBON DIOXIDE (test code = CO2) 28 mEq/l 21-33 N ANION GAP (test code = GAP) 10 0-20 N GLUCOSE (test code = GLU) 103 mg/dL 77-141 N BLOOD UREA NITROGEN (test code = BUN) 19 mg/dL 7-25 N GLOMERULAR FILTRATION RATE (test code = GFR) 85.1 80-90 N The Glomerular Filtration Rate is a calculated parameterbased on serum Creatinine, patient age and sex. GFR valuesless than 60 mL/min/1.73 square meters are indicative ofChronic Kidney Disease. Values less than 15 mL/min/1.73square meters indicate Kidney failure. The calculation forGFR is based on the CKD-EPI (2020) calculation. This formulais race indifferent and is the recommended formula for GFRby the National Kidney Foundation for Adults.The GFR will not calculate if the sex is unknown or if thepatient's age is <18 years. CREATININE (test code = CREAT) 1.0 mg/dL 0.6-1.3 N CALCIUM (test code = CA) 9.1 mg/dL 8.0-10.5 N COMMENTS: To be done morning of Heart CathLIPID PROFILE (CORONARY RISK) 2024-10-16 07:16:00* Test Item Value Reference Range Interpretation Comme nts TRIGLYCERIDES (test code = TRIG) 74 mg/dL 40-150 N CHOLESTEROL (test code = CHOL) 113 mg/dL <200 CHOLESTEROL/HDL RATIO (test code = CHOLHDL) 3.10 RATIO 3.43-4.97 L RISK ASSOCIATED WITH CHOL/HDL RATIOS: RISK MALE FEMALE1/2 AVERAGE 3.43 3.27AVERAGE 4.97 4.442X AVERAGE 9.55 7.053X AVERAGE 23.39 11.04 NOTE THAT THE REFERENCE VALUE IS RELATEDTO RISK LEVELS RECOMMENDED BY THE NATL.HEART, LUNG, AND BLOOD INST. HDL CHOLESTEROL (test code = HDL) 36.4 MG/DL 40-60 L HDL Interpreta tion < 40.0 mg/dL Low (undesirable, high risk)> 60.0 mg/dL High (desirable, low risk) Reference interval for healthy adults was established by theNational Cholesterol Education Program (NCEP). LIPOPROTEIN LDL (test code = LDL) 64.0 mg/dL 0-100 N <100 UKOQITR90 0-129 NEAR OPTIMAL/ABOVE [id number] HIGH>[place]=227 VERY HIGH*Guidelines provided by the National Cholesterol EducationProgram Adult Treatment Panel III COMMENTS: To be done morning of Heart CathCBC W/AUTO [id number] 06:52:00* Test Item Value Reference Range Interpretation Comme nts WHITE BLOOD CELL (test code = WBC) 9.0 x10 3/uL 4.5-11.0 N RED BLOOD CELL (test code = RBC) 4.30 x10 6/uL 4.00-5.60 N HEMOGLOBIN (test code = HGB) 12.1 g/dL 12.5-16.9 L HEMATOCRIT (test code = HCT) 37.8 % 37.5-50.7 N MEAN CELL VOLUME (test code = MCV) 87.9 fL 81.0-99.0 N MEAN CELL HGB (test code = MCH) 28.1 pg 27.0-33.0 N MEAN CELL HGB CONCETRATION (test code = MCHC) 32.0 g/dL 33.0-37.0 L RED CELL DISTRIBUTION WIDTH CV (test code = RDW) 14.2 % 11.5-14.5 N RED CELL DISTRIBUTION WIDTH SD (test code = RDW-SD) 45.3 fL 37.0-54.0 N PLATELET COUNT (test code = PLT) 276 x10 3/uL 150-400 N MEAN PLATELET VOLUME (test c ode = MPV) 8.6 fL 7.0-9.0 N NEUTROPHIL % (test code = NT%) 62.0 % 56.0-77.0 N IMMATURE GRANULOCYTE % (test code = IG%) 0.2 % 0.0-2.0 N LYMPHOCYTE % (test code = LY%) 24.4 % 14.0-32.0 N MONOCYTE % (test code = MO%) 10.2 % 4.8-9.0 H EOSINOPHIL % (test code = EO%) 2.8 % 0.3-3.7 N BASOPHIL % (test code = BA%) 0.4 % 0.0-2.0 N NUCLEATED RBC % (test code = NRBC%) 0.0 % 0-0 N NEUTROPHIL # (test code = NT#) 5.58 x10 3/uL 2.0-7.6 N IMMATURE GRANULOCYTE # (test code = IG#) 0.02 x10 3/uL 0.00-0.03 N LYMPHOCYTE # (test code = LY#) 2.20 x10 3/uL 1.0-3.8 N MONOCYTE # (test code = MO#) 0.92 x10 3/uL 0.1-0.8 H EOSINOPHIL # (test code = EO#) 0.25 x10 3/uL 0.0-0.2 H BASOPHIL # (test code = BA#) 0.04 x10 3/uL 0.0-0.2 N NUCLEATED RBC # (test code = NRBC#) 0.00 x10 3/uL 0.0-0.1 N COMMENTS: To be done morning of Heart CathTROP-I HIGH [id number] 02:21:00* Test Item Value Reference Range Interpretation Comme [facility] TROP-I HIGH SENSITIVITY (test code = TROPIHS) 72 ng/L 0-54 H CAUTION: Units o f the current test methodology (ng/L) differfrom the prior test methodology (ng/mL) by a factor of 1000. 99th Percentile Upper Reference Limit (URL): Females: 34 ng/LMales: 54 ng/L In order to distinguish acute elevations of high sensitivitytroponin from other clinical conditions, the FourthUniversal Definition of Myocardial Infarction stressesclinical assessment and the demonstration of a rise and/orfall in serial troponin results above the URL. These results were obtained using [employer] IM TnIHreagent. Results from different methodologies should not becompared to one another as quantitative results and URLs mayvary by method. TROP-I HIGH [id number] 01:29:00* Test Item Value Reference Range Interpretation Comme [facility] TROP-I HIGH SENSITIVITY (test code = TROPIHS) 69 ng/L 0-54 H CAUTION: Units o f the current test methodology (ng/L) differfrom the prior test methodology (ng/mL) by a factor of 1000. 99th Percentile Upper Reference Limit (URL): Females: 34 ng/LMales: 54 ng/L In order to distinguish acute elevations of high sensitivitytroponin from other clinical conditions, the FourthUniversal Definition of Myocardial Infarction stressesclinical assessment and the demonstration of a rise and/orfall in serial troponin results above the URL. These results were obtained using [employer] IM TnIHreagent. Results from different methodologies should not becompared to one another as quantitative results and URLs mayvary by method. DRUGS OF ABUSE SCREEN [id number] 23:45:00* Test Item Value Reference Range Interpretation Comme nts URN COCAINE (test code = COCAURN) NEGATIVE NEGATIVE URN CANNABINOIDS (test code = CANNABURN) POSITIVE NEGATIVE A URN AMPHETAMINE (test code = AMPHETURN) POSITIVE NEGATIVE A URN BARBITURATE (test code = BARBITURN) NEGATIVE NEGATIVE URN BENZODIAZEPINE (test code = BENZOURN) NEGATIVE NEGATIVE Cut-off v alue:200 ng/mL URN OPIATES (test code = OPIATURN) NEGATIVE NEGATIVE Cut-off value:20 00 ng/mL URN PHENCYCLIDINE (PCP) (test code = PHENCURN) NEGATIVE NEGATIVE Cutoffs:B arbiturates 200 ng/mLBenzodiazepines 200 ng/mLTHC Cannabinoids 50 ng/mLOpiates(Morphine) 2000 ng/mLAmphetamine 1000 ng/mLCocaine 300 ng/mLPCP phencyclidine 25 ng/mL Unconfirmed screening results shouldnot be used for non-medical purposes. TROP-I HIGH [id number] 22:49:00* Test Item Value Reference Range Interpretation Comme nts TROP-I HIGH SENSITIVITY (test code = TROPIHS) 73 ng/L 0-54 H CAUTION: Units o f the current test methodology (ng/L) differfrom the prior test methodology (ng/mL) by a factor of 1000. 99th Percentile Upper Reference Limit (URL): Females: 34 ng/LMales: 54 ng/L In order to distinguish acute elevations of high sensitivitytroponin from other clinical conditions, the FourthUniversal Definition of Myocardial Infarction stressesclinical assessment and the demonstration of a rise and/orfall in serial troponin results above the URL. These results were obtained using Siem[employer] IM TnIHreagent. Results from different methodologies should not becompared to one another as quantitative results and URLs mayvary by method. LIPOPROTEIN [id number] 21:58:00* Test Item Value Reference Range Interpretation Comme [facility] LIPOPROTEIN LDL (test code = LDL) 55.0 mg/dL 0-100 N <100 EFLROSH68 0-129 NEAR OPTIMAL/ABOVE [id number] HIGH>DM=158 VERY HIGH*Guidelines provided by the National Cholesterol EducationProgram Adult Treatment Panel III PROTHROMBIN [id number] 21:47:00* Test Item Value Reference Range Interpretation Comme [facility] PROTHROMBIN TIME PATIENT (test code = PTP) 11.5 SECONDS 9.3-12.9 N INTERNATIONAL NORMAL RATIO (test code = INR) 1.0 0.8-1.2 N TARGET INR BY INDICATION Indication INR1. Prophylaxis of venous thrombosis 2.0 - 3.0 (orthopedic surgery), Prophylaxis of venous thrombosis (other than high-risk surgery), Treatment of Deep Vein Thrombosis/Pulmonary Embolism, Prevention of systemic embolism - Tissue heart valves, Acute Myocardial Infarction (to prevent systemic embolism), Valvular heart disease, Atrial Fibrillation, Bileaflet mechanical valve in aortic position.2. Mechanical prosthetic valves (high risk), 2.5 - 3.5 Presence of Lupus Anticoagulant or Antiphospholipid Antibodies, Prevention of systemic embolism - Acute Myocardial Infarction (to prevent recurrent infarct). THROMBOPLASTIN TIME [id number] 21:47:00* Test Item Value Reference Range Interpretation Comme [facility] THROMBOPLASTIN TIME PARTIAL (test code = PTT) 30.9 Seconds 25.0-39.5 N Therapeutic Rang e: 58.8 - 96.0 Seconds Effective 09/04/2024 POCT GLUCOSE (AUTOMATED)2024-06-14 03:53:47* Test Item Value Reference Range Interpretation Comme [facility] POCT GLU (test code = 6986641228) 87 mg/dL 70-110 Lab Interpretation (test cod e = 13674-4) Normal [facility] Glucose(Age >30days)2024-06-14 03:52:00* Test Item Value Reference Range Interpretation Comme [facility] POCT Glu (age>30days) (test code = 3342) 87 mg/dL 70-110 Lab Interpretation (test cod e = 77538-6) [facility] [id number] 04:41:58* Test Item Value Reference Range Interpretation Comme nts VIT B12 (test code = 7202918285) 288 pg/mL 240-930 JOCELIN (test code = JOCELIN) Biotin has been reported to cause a positive bias, interpret results relative to patient's use of biotin. Lab Interpretation (test code = 61066-1) Normal [facility]IM[facility] [id number] 03:06:24 * Test Item Value Reference Range Interpretation Comme nts TSH (test code = 6190713905) See_Comment Biotin has been reported to cause a negative bias, interpret results relative to patient's use of biotin. [Automated message] The system which generated this result transmitted reference range: 0.45 - 4.70 mIU/L. The reference range was not used to interpret this result as normal/abnormal. Lab Interpretation (test code = 14951-1) Normal [facility] [id number] 03:06:24 * Test Item Value Reference Range Interpretation Comme nts TSH (test code = 8027675675) See_Comment Biotin has been reported to cause a negative bias, interpret results relative to patient's use of biotin. [Automated message] The system which generated this result transmitted reference range: 0.45 - 4.70 mIU/L. The reference range was not used to interpret this result as normal/abnormal. Lab Interpretation (test code = 35211-2) Normal [facility] CenterETHANOL2022-11-21 11:56:29 ALCOHOL<10mg/dL10/01/2022 5:56 AM [facility] Greater than or equal to 80 mg/dL. NOTE: Whole blood values are approximately 10% to 15% lower than serum and plasma.[facility] CenterETH[facility]OL2022-[facility]-21 11:56:29ALCOHOL<10mg/dL10/01/2022 5:56 AM [facility] Greater than or equal to 80 mg/dL. NOTE: Whole blood values are approximately 10% to 15% lower than serum and pl asma.[facility] (NA, K, CL, CO2, GLUCOSE, BUN, CREATININE, CA)2022-10-01 11:56:24* Test Item Value Reference Range Interpretation Comme nts NA (test code = 9381161019) 136 mmol/L 135-145 K (test code = 6679932473) 4.1 mmol/L 3.5-5.0 CL (test code = 0779574489) 111 mmol/L 98-108 H CO2 TOTAL (test code = 2561343075) 26 mmol/L 23-31 AGAP (test code = 5202554240) 2-16 L BUN (test code = 6800812717) 16 mg/dL 7-23 GLUCOSE (test code = 2744762101) 124 mg/dL 70-110 H CREATININE (test code = 7233022020) 0.90 mg/dL 0.60-1.25 CALCIUM (test code = 6787320149) 7.3 mg/dL 8.6-10.6 L eGFR (test code = 8101108784) mL/min/1.73m2 JOCELIN (test code = JOCELIN) Association of Glomerular Filtration Rate (GFR) and Staging of Kidney Disease* + --+ --+ ------+| GFR (mL/min/1.73 m2) ?| With Kidney Damage ?| ?Without Kidney Damage+ --------+ --------+ +| ?>90 ?| ?Stage one ?| ? Normal ?+ ---+ ---+ -------+| ?60-89 ?| ?Stage two ?| ? Decreased GFR ? + --+ --+ ------+| ?30-59 ?| ?Stage three ?| ? Stage three ? + --+ --+ ------+| ?15-29 ?| ?Stage four ? | ? Stage four ?+ ---+ ---+ -------+| ?<15 (or dialysis) ? ?| ?Stage five ? | ? Stage five ?+ ---+ ---+ -------+ *Each stage assumes the associated GFR level has been in effect for at least three months. ?Stages 1 to 5, with or without kidney disease, indicate chronic kidney disease. Notes: Determination of stages one and two (with eGFR >59mL/min/1.73 m2) requires estimation of kidney damage for at least three months as defined by structural or functional abnormalities of the kidney, manifested by either:Pathological abnormalities or Markers of kidney damage (including abnormalities in the composition of the blood or urine or abnormalities in imaging tests). Lab Interpretation (test code = 32529-8) Abnormal [facility] METABOLIC PANEL (NA, K, CL, CO2, GLUCOSE, BUN, CREATININE, CA)2022-10-01 11:56:24* Test Item Value Reference Range Interpretation Comme nts NA (test code = 1944325381) 136 mmol/L 135-145 K (test code = 2939192290) 4.1 mmol/L 3.5-5.0 CL (test code = 5640793888) 111 mmol/L 98-108 H CO2 TOTAL (test code = 8161790412) 26 mmol/L 23-31 AGAP (test code = 6723591641) 2-16 L BUN (test code = 7671396104) 16 mg/dL 7-23 GLUCOSE (test code = 5731098143) 124 mg/dL 70-110 H CREATININE (test code = 2275287413) 0.90 mg/dL 0.60-1.25 CALCIUM (test code = 1534120892) 7.3 mg/dL 8.6-10.6 L eGFR (test code = 0596109527) mL/min/1.73m2 JOCELIN (test code = JOCELIN) Association of Glomerular Filtration Rate (GFR) and Staging of Kidney Disease* + --+ --+ ------+| GFR (mL/min/1.73 m2) ?| With Kidney Damage ?| ?Without Kidney Damage+ --------+ --------+ +| ?>90 ?| ?Stage one ?| ? Normal ?+ ---+ ---+ -------+| ?60-89 ?| ?Stage two ?| ? Decreased GFR ? + --+ --+ ------+| ?30-59 ?| ?Stage three ?| ? Stage three ? + --+ --+ ------+| ?15-29 ?| ?Stage four ? | ? Stage four ?+ ---+ ---+ -------+| ?<15 (or dialysis) ? ?| ?Stage five ? | ? Stage five ?+ ---+ ---+ -------+ *Each stage assumes the associated GFR level has been in effect for at least three months. ?Stages 1 to 5, with or without kidney disease, indicate chronic kidney disease. Notes: Determination of stages one and two (with eGFR >59mL/min/1.73 m2) requires estimation of kidney damage for at least three months as defined by structural or functional abnormalities of the kidney, manifested by either:Pathological abnormalities or Markers of kidney damage (including abnormalities in the composition of the blood or urine or abnormalities in imaging tests). Lab Interpretation (test code = 08591-9) Abnormal [facility], [id number] 11:43:01* Test Item Value Reference Range Interpretation Comme nts AMMONIA (test code = 7180359791) 10 umol/L 9-33 Lab Interpretation (test cod e = 13178-9) Normal [facility], [id number] 11:43:01* Test Item Value Reference Range Interpretation Comme nts AMMONIA (test code = 8262654720) 10 umol/L 9-33 Lab Interpretation (test cod e = 90276-0) Normal [facility] WITH [id number] 11:28:20* Test Item Value Reference Range Interpretation Comme nts WBC (test code = 6690-2) See_Comment [Automated [employer] The system which generated this result transmitted reference range: 4.20 - 10.70 10*3/?L. The reference range was not used to interpret this result as normal/abnormal. RBC (test code = 789-8) See_Comment L [Automated [employer]] The system which generated this result transmitted reference range: 4.26 - 5.52 10*6/?L. The reference range was not used to interpret this result as normal/abnormal. HGB (test code = 718-7) 8.9 g/dL 12.2-16.4 L HCT (test code = 4544-3) 27.3 % 38.4-49.3 L MCV (test code = 787-2) 87.5 fL 81.7-95.6 MCH (test code = 785-6) 28.5 pg 26.1-32.7 MCHC (test code = 786-4) 32.6 g/dL 31.2-35.0 RDW-SD (test code = 01897-1) 46.5 fL 38.5-51.6 RDW-CV (test code = 788-0) 14.5 % 12.1-15.4 PLT (test code = 777-3) See_Comment [Automated messa ge] The system which generated this result transmitted reference range: 150 - 328 10*3/?L. The reference range was not used to interpret this result as normal/abnormal. MPV (test code = 78037-8) 9.1 fL 9.8-13.0 L NRBC/100 WBC (test code = 6517450774) See_Comment [Automated me ssage] The system which generated this result transmitted reference range: 0.0 - 10.0 /100 WBCs. The reference range was not used to interpret this result as normal/abnormal. NRBC x10^3 (test code = 2013240072) See_Comment [Automated messa ge] The system which generated this result transmitted reference range: 10*3/?L. The reference range was not used to interpret this result as normal/abnormal. GRAN MAT (NEUT) % (test code = 770-8) 74.3 % IMM GRAN % (test code = 5938814476) 0.50 % LYMPH % (test code = 736-9) 12.5 % MONO % (test code = 5905-5) 10.4 % EOS % (test code = 713-8) 2.1 % BASO % (test code = 706-2) 0.2 % GRAN MAT x10^3(ANC) (test code = 6200594257) 6.49 10*3/uL 1.99-6.95 IMM GRAN x10^3 (test code = 1334699116) 0.04 10*3/uL 0.00-0.06 LYMPH x10^3 (test code = 731-0) 1.09 10*3/uL 1.09-3.23 MONO x10^3 (test code = 742-7) 0.91 10*3/uL 0.36-1.02 EOS x10^3 (test code = 711-2) 0.18 10*3/uL 0.06-0.53 BASO x10^3 (test code = 704-7) 0.01-0.09 Lab Interpretation (test code = 00917-4) Abnormal [facility] WITH [id number] 11:28:20* Test Item Value Reference Range Interpretation Comme nts WBC (test code = 6690-2) See_Comment [Automated messa ge] The system which generated this result transmitted reference range: 4.20 - 10.70 10*3/?L. The reference range was not used to interpret this result as normal/abnormal. RBC (test code = 789-8) See_Comment L [Automated messa ge] The system which generated this result transmitted reference range: 4.26 - 5.52 10*6/?L. The reference range was not used to interpret this result as normal/abnormal. HGB (test code = 718-7) 8.9 g/dL 12.2-16.4 L HCT (test code = 4544-3) 27.3 % 38.4-49.3 L MCV (test code = 787-2) 87.5 fL 81.7-95.6 MCH (test code = 785-6) 28.5 pg 26.1-32.7 MCHC (test code = 786-4) 32.6 g/dL 31.2-35.0 RDW-SD (test code = 79008-7) 46.5 fL 38.5-51.6 RDW-CV (test code = 788-0) 14.5 % 12.1-15.4 PLT (test code = 777-3) See_Comment [Automated messa ge] The system which generated this result transmitted reference range: 150 - 328 10*3/?L. The reference range was not used to interpret this result as normal/abnormal. MPV (test code = 52596-4) 9.1 fL 9.8-13.0 L NRBC/100 WBC (test code = 7616714295) See_Comment [Automated me ssage] The system which generated this result transmitted reference range: 0.0 - 10.0 /100 WBCs. The reference range was not used to interpret this result as normal/abnormal. NRBC x10^3 (test code = 0756320776) See_Comment [Automated messa ge] The system which generated this result transmitted reference range: 10*3/?L. The reference range was not used to interpret this result as normal/abnormal. GRAN MAT (NEUT) % (test code = 770-8) 74.3 % IMM GRAN % (test code = 2971029814) 0.50 % LYMPH % (test code = 736-9) 12.5 % MONO % (test code = 5905-5) 10.4 % EOS % (test code = 713-8) 2.1 % BASO % (test code = 706-2) 0.2 % GRAN MAT x10^3(ANC) (test code = 0328041923) 6.49 10*3/uL 1.99-6.95 IMM GRAN x10^3 (test code = 9406483117) 0.04 10*3/uL 0.00-0.06 LYMPH x10^3 (test code = 731-0) 1.09 10*3/uL 1.09-3.23 MONO x10^3 (test code = 742-7) 0.91 10*3/uL 0.36-1.02 EOS x10^3 (test code = 711-2) 0.18 10*3/uL 0.06-0.53 BASO x10^3 (test code = 704-7) 0.01-0.09 Lab Interpretation (test code = 99222-5) [facility] [id number] 03:42:49* Test Item Value Reference Range Interpretation Comme nts LACTIC ACID (test code = 1318651794) 1.08 mmol/L 0.50-2.20 Lab Interpretation (test cod e = 06055-4) Normal [facility] Acid Whole [id number] 03:42:49* Test Item Value Reference Range Interpretation Comme nts LACTIC ACID (test code = 9418484483) 1.08 mmol/L 0.50-2.20 Lab Interpretation (test cod e = 17399-6) Normal [facility] ACT LOW [id number] 15:15:22* Test Item Value Reference Range Interpretation Comme nts ACTLR (test code = 3295134958) See_Comment H [Automated messa ge] The system which generated this result transmitted reference range: 89 - 169 Seconds. The reference range was not used to interpret this result as normal/abnormal. Lab Interpretation (test code = 85282-6) Abnormal [facility] ACT LOW [id number] 15:15:22* Test Item Value Reference Range Interpretation Comme nts ACTLR (test code = 0327026673) See_Comment H [Automated messa ge] The system which generated this result transmitted reference range: 89 - 169 Seconds. The reference range was not used to interpret this result as normal/abnormal. Lab Interpretation (test code = 35485-6) Abnormal [facility] ACT LOW [id number] 15:15:22* Test Item Value Reference Range Interpretation Comme nts ACTLR (test code = 6466632884) See_Comment H [Automated messa ge] The system which generated this result transmitted reference range: 89 - 169 Seconds. The reference range was not used to interpret this result as normal/abnormal. Lab Interpretation (test code = 63075-4) Abnormal [facility] ACT LOW [id number] 15:15:22* Test Item Value Reference Range Interpretation Comme nts ACTLR (test code = 4598904522) See_Comment H [Automated messa ge] The system which generated this result transmitted reference range: 89 - 169 Seconds. The reference range was not used to interpret this result as normal/abnormal. Lab Interpretation (test code = 83743-5) Abnormal [facility] ACT LOW [id number] 15:15:22* Test Item Value Reference Range Interpretation Comme nts ACTLR (test code = 6934457431) See_Comment H [Automated messa ge] The system which generated this result transmitted reference range: 89 - 169 Seconds. The reference range was not used to interpret this result as normal/abnormal. Lab Interpretation (test code = 11028-8) Abnormal [facility] ACT LOW [id number] 15:15:22* Test Item Value Reference Range Interpretation Comme nts ACTLR (test code = 4883574532) See_Comment H [Automated messa ge] The system which generated this result transmitted reference range: 89 - 169 Seconds. The reference range was not used to interpret this result as normal/abnormal. Lab Interpretation (test code = 15796-0) Abnormal [facility] GLUCOSE (AUTOMATED)2022-09-21 22:55:43* Test Item Value Reference Range Interpretation Comme nts POCT GLU (test code = 0615459277) 97 mg/dL 70-110 Lab Interpretation (test cod e = 04767-1) Normal [facility] GLUCOSE (AUTOMATED)2022-09-21 22:55:43* Test Item Value Reference Range Interpretation Comme nts POCT GLU (test code = 7037547784) 97 mg/dL 70-110 Lab Interpretation (test cod e = 42053-0) Normal [facility] GLUCOSE (AUTOMATED)2022-09-21 22:55:43* Test Item Value Reference Range Interpretation Comme nts POCT GLU (test code = 0495168474) 97 mg/dL 70-110 Lab Interpretation (test cod e = 23867-3) Normal [facility] GLUCOSE (AUTOMATED)2022-09-21 22:55:43* Test Item Value Reference Range Interpretation Comme nts POCT GLU (test code = 0579893017) 97 mg/dL 70-110 Lab Interpretation (test cod e = 42706-9) Normal [facility] GLUCOSE (AUTOMATED)2022-09-20 03:42:26* Test Item Value Reference Range Interpretation Comme nts POCT GLU (test code = 6836752236) 160 mg/dL 70-110 H Lab Interpretation (test cod e = 43294-1) Abnormal [facility] GLUCOSE (AUTOMATED)2022-09-20 03:42:26* Test Item Value Reference Range Interpretation Comme nts POCT GLU (test code = 1010147345) 160 mg/dL 70-110 H Lab Interpretation (test cod e = 47643-9) Abnormal [facility] GLUCOSE (AUTOMATED)2022-09-20 03:42:26* Test Item Value Reference Range Interpretation Comme nts POCT GLU (test code = 3571818294) 160 mg/dL 70-110 H Lab Interpretation (test cod e = 33909-2) Abnormal [facility] Arterial Blood Gas.2022-09-18 09:01:22* Test Item Value Reference Range Interpretation Comme nts PH (test code = 2) 7.35-7.45 PCO2 (test code = 2715596507) See_Comment [Automated messa ge] The system which generated this result transmitted reference range: 35 - 45 mmHg. The reference range was not used to interpret this result as normal/abnormal. PO2 (test code = 1411356291) See_Comment L [Automated messa ge] The system which generated this result transmitted reference range: 80 - 100 mmHg. The reference range was not used to interpret this result as normal/abnormal. HCO3 (test code = 1145215171) See_Comment [Automated messa ge] The system which generated this result transmitted reference range: 22 - 26 mEq/L. The reference range was not used to interpret this result as normal/abnormal. BE (test code = 0825511694) See_Comment [Automated messa ge] The system which generated this result transmitted reference range: -3.0 - 3.0 mEq/L. The reference range was not used to interpret this result as normal/abnormal. Lab Interpretation (test code = 87700-1) Abnormal [facility] Arterial Blood Gas.2022-09-18 09:01:22* Test Item Value Reference Range Interpretation Comme nts PH (test code = 2) 7.35-7.45 PCO2 (test code = 1523362735) See_Comment [Automated messa ge] The system which generated this result transmitted reference range: 35 - 45 mmHg. The reference range was not used to interpret this result as normal/abnormal. PO2 (test code = 8658695582) See_Comment L [Automated messa ge] The system which generated this result transmitted reference range: 80 - 100 mmHg. The reference range was not used to interpret this result as normal/abnormal. HCO3 (test code = 1269822552) See_Comment [Automated messa ge] The system which generated this result transmitted reference range: 22 - 26 mEq/L. The reference range was not used to interpret this result as normal/abnormal. BE (test code = 2811615836) See_Comment [Automated messa ge] The system which generated this result transmitted reference range: -3.0 - 3.0 mEq/L. The reference range was not used to interpret this result as normal/abnormal. Lab Interpretation (test code = 96635-1) Abnormal [facility] Arterial Blood Gas.2022-09-18 09:01:22* Test Item Value Reference Range Interpretation Comme nts PH (test code = 2) 7.35-7.45 PCO2 (test code = 7555440853) See_Comment [Automated messa ge] The system which generated this result transmitted reference range: 35 - 45 mmHg. The reference range was not used to interpret this result as normal/abnormal. PO2 (test code = 1587767233) See_Comment L [Automated messa ge] The system which generated this result transmitted reference range: 80 - 100 mmHg. The reference range was not used to interpret this result as normal/abnormal. HCO3 (test code = 2623557094) See_Comment [Automated messa ge] The system which generated this result transmitted reference range: 22 - 26 mEq/L. The reference range was not used to interpret this result as normal/abnormal. BE (test code = 5250056136) See_Comment [Automated messa ge] The system which generated this result transmitted reference range: -3.0 - 3.0 mEq/L. The reference range was not used to interpret this result as normal/abnormal. Lab Interpretation (test code = 11149-1) Abnormal [facility] Arterial Blood Gas.2022-09-18 09:01:22* Test Item Value Reference Range Interpretation Comme nts PH (test code = 2) 7.35-7.45 PCO2 (test code = 4111549899) See_Comment [Automated messa ge] The system which generated this result transmitted reference range: 35 - 45 mmHg. The reference range was not used to interpret this result as normal/abnormal. PO2 (test code = 3866519084) See_Comment L [Automated messa ge] The system which generated this result transmitted reference range: 80 - 100 mmHg. The reference range was not used to interpret this result as normal/abnormal. HCO3 (test code = 5343035724) See_Comment [Automated messa ge] The system which generated this result transmitted reference range: 22 - 26 mEq/L. The reference range was not used to interpret this result as normal/abnormal. BE (test code = 3735887514) See_Comment [Automated messa ge] The system which generated this result transmitted reference range: -3.0 - 3.0 mEq/L. The reference range was not used to interpret this result as normal/abnormal. Lab Interpretation (test code = 94030-9) Abnormal [facility] GLUCOSE (AUTOMATED)2022-09-17 06:37:01* Test Item Value Reference Range Interpretation Comme nts POCT GLU (test code = 2551502053) 262 mg/dL 70-110 H Lab Interpretation (test cod e = 22859-7) Abnormal [facility] GLUCOSE (AUTOMATED)2022-09-17 06:37:01* Test Item Value Reference Range Interpretation Comme nts POCT GLU (test code = 1287030025) 262 mg/dL 70-110 H Lab Interpretation (test cod e = 80562-3) Abnormal [facility] GLUCOSE (AUTOMATED)2022-09-17 06:37:01* Test Item Value Reference Range Interpretation Comme nts POCT GLU (test code = 6332346674) 262 mg/dL 70-110 H Lab Interpretation (test cod e = 64531-5) Abnormal [facility] GLUCOSE (AUTOMATED)2022-09-17 06:37:01* Test Item Value Reference Range Interpretation Comme nts POCT GLU (test code = 8449595047) 262 mg/dL 70-110 H Lab Interpretation (test cod e = 86032-2) [facility] 19:42:44* Test Item Value Reference Range Interpretation Comme nts Height (test code = 2073330178) in Weight (test code = 0213916511) lbs Systolic BP (test code = 7860057416) mmHg Diastolic BP (test code = 1516829562) mmHg Heart Rate (test code = 0254114245) bpm BSA (test code = 8471383668) 1.87 m2 LVOT diameter (test code = 4526053792) 2.04 cm LVOT area (test code = 5963772541) 3.30 cm2 LA size (test code = 0284660182) 4.7 cm Ao root diam (test code = 5855739425) 2.70 cm Aortic root (test code = 8880128058) 2.7 cm Ao root annulus (test code = 1248374983) 2.7 cm MV Peak E Kim (test code = 8574185765) 99.4 cm/s MV Peak A Kim (test code = 6374857523) 60.5 cm/s E/A ratio (test code = 4833482011) ratio MV valve area p 1/2 method (test code = 5877197567) 7.30 cm2 MV dec slope (test code = 3571323207) 961.50 cm/s2 MV P1/2t max kim (test code = 0909898281) 98.40 cm/s MV Prop V (test code = 7294376680) 23.50 cm/s LVOT stroke volume (test code = 9583689644) 52.80 cm3 LVOT peak kim (test code = 9366628174) 99.3 cm/s LVOT mn grad (test code = 6623544478) mmHg AV LVOT peak gradient (test code = 1194906521) mmHg LVOT peak VTI (test code = 2784648861) 16.1 cm LV V1 mean (test code = 9211335738) 60.90 cm/s Aortic valve mean velocity (test code = 3105678786) 67.7 cm/s Ao peak kim (test code = 1804943997) 114.5 cm/s Ao VTI (test code = 4772379653) 17.9 cm AV area by cont VTI (test code = 7931383828) 3.0 cm2 AV area peak kim (test code = 3328317187) 2.8 cm2 Ao max PG (test code = 4326044736) 5.20 mm[Hg] AV peak gradient (test code = 2151157935) mmHg AV valve area (test code = 9822966580) 3.00 cm2 AV mean gradient (test code = 6252130480) mmHg TR Peak Kim (test code = 5565079547) 226.8 cm/s Triscuspid Valve Regurgitation Peak Gradient (test code = 5390121790) mmHg LAV(MOD-sp2) (test code = 3624774600) 106.60 mL Tapse (test code = 7965987701) 1.94 cm Radiology Study observation (narrative) (test code = 67497-2) JOCELIN (test code = JOCELIN) ?Left?Ventricle: Left ventricle is mildly dilated. Normal wall thickness. Moderate anterolateral and inferolateral hypokinesia. Mildly reduced systolic function with a visually estimated EF of 40 - 45%. Calculated EF is 43% by modified Daniels method. No UAE was used therefore unable to rule out LV thrombus. Diastolic dysfunction. ?Mitral?Valve: Moderate transvalvular regurgitation with an eccentrically directed jet. No PISA radium or pulmonary vein doppler was done therefore unable to accurately assess degree of MR. ?Left?Atrium: Left atrium is severely dilated. ?Right?Atrium: Right atrium is moderately dilated. ?Tricuspid?Valve: Tricuspid valve structure is normal. There is trivial tricuspid regurgitation.Insuffici ent regurgant jet to estimate RVSP. Left VentricleLeft ventricle is mildly dilated. Normal wall thickness. Moderate anterolateral and inferolateral hypokinesia. Mildly reduced systolic function with a visually estimated EF of 40 - 45%. Calculated EF is 43% by modified Daniels method. No UAE was used therefore unable to rule out LV thrombus. Diastolic dysfunction.Right VentricleRight ventricle size is normal. Normal systolic function.Left AtriumLeft atrium is severely dilated.Right AtriumRight atrium is moderately dilated.IVC/SVCIVC diameter is less than or equal to 21 mm and decreases greater than 50% during inspiration; therefore the estimated right atrial pressure is normal (~0-5 mmHg).Mitral ValveMitral valve structure is normal. Moderate transvalvular regurgitation with an eccentrically directed jet. No PISA radium or pulmonary vein doppler was done therefore unable to accurately assess degree of MR. No stenosis.Tricuspid ValveTricuspid valve structure is normal. There is trivial tricuspid regurgitation.Insuffici ent regurgant jet to estimate RVSP. No stenosis.Aortic ValveAortic valve opens well. Mildly calcified cusps. Trace transvalvular regurgitation. No evidence of aortic stenosis.Pulmonic ValveNot well visualized.Ascending AortaNormal sized annulus and sinus of Valsalva.PericardiumNo pericardial effusion.Study DetailsStudy quality experienced technical difficulty. A complete echocardiogram was performed using 2D. [facility] 19:42:44* Test Item Value Reference Range Interpretation Comme nts Height (test code = 5728263510) in Weight (test code = 9176763171) lbs Systolic BP (test code = 9363070718) mmHg Diastolic BP (test code = 4475500139) mmHg Heart Rate (test code = 4782803533) bpm BSA (test code = 7406136552) 1.87 m2 LVOT diameter (test code = 5530991091) 2.04 cm LVOT area (test code = 1815502311) 3.30 cm2 LA size (test code = 4119053399) 4.7 cm Ao root diam (test code = 6854745962) 2.70 cm Aortic root (test code = 7534049941) 2.7 cm Ao root annulus (test code = 3323120293) 2.7 cm MV Peak E Kim (test code = 6730326065) 99.4 cm/s MV Peak A Kim (test code = 1544491773) 60.5 cm/s E/A ratio (test code = 0012596237) ratio MV valve area p 1/2 method (test code = 2429121155) 7.30 cm2 MV dec slope (test code = 6609440184) 961.50 cm/s2 MV P1/2t max kim (test code = 2097434169) 98.40 cm/s MV Prop V (test code = 9520508525) 23.50 cm/s LVOT stroke volume (test code = 0972525316) 52.80 cm3 LVOT peak kim (test code = 2321414314) 99.3 cm/s LVOT mn grad (test code = 5856237840) mmHg AV LVOT peak gradient (test code = 6114125974) mmHg LVOT peak VTI (test code = 2113933586) 16.1 cm LV V1 mean (test code = 5264337773) 60.90 cm/s Aortic valve mean velocity (test code = 7212872309) 67.7 cm/s Ao peak kim (test code = 8938566041) 114.5 cm/s Ao VTI (test code = 4760102851) 17.9 cm AV area by cont VTI (test code = 5701119036) 3.0 cm2 AV area peak kim (test code = 4168936115) 2.8 cm2 Ao max PG (test code = 4099291903) 5.20 mm[Hg] AV peak gradient (test code = 0206800866) mmHg AV valve area (test code = 0022415897) 3.00 cm2 AV mean gradient (test code = 4436616393) mmHg TR Peak Kim (test code = 3879256962) 226.8 cm/s Triscuspid Valve Regurgitation Peak Gradient (test code = 4962321638) mmHg LAV(MOD-sp2) (test code = 3043725230) 106.60 mL Tapse (test code = 3629595722) 1.94 cm Radiology Study observation (narrative) (test code = 34593-7) JOCELIN (test code = JOCELIN) ?Left?Ventricle: Left ventricle is mildly dilated. Normal wall thickness. Moderate anterolateral and inferolateral hypokinesia. Mildly reduced systolic function with a visually estimated EF of 40 - 45%. Calculated EF is 43% by modified Daniels method. No UAE was used therefore unable to rule out LV thrombus. Diastolic dysfunction. ?Mitral?Valve: Moderate transvalvular regurgitation with an eccentrically directed jet. No PISA radium or pulmonary vein doppler was done therefore unable to accurately assess degree of MR. ?Left?Atrium: Left atrium is severely dilated. ?Right?Atrium: Right atrium is moderately dilated. ?Tricuspid?Valve: Tricuspid valve structure is normal. There is trivial tricuspid regurgitation.Insuffici ent regurgant jet to estimate RVSP. Left VentricleLeft ventricle is mildly dilated. Normal wall thickness. Moderate anterolateral and inferolateral hypokinesia. Mildly reduced systolic function with a visually estimated EF of 40 - 45%. Calculated EF is 43% by modified Daniels method. No UAE was used therefore unable to rule out LV thrombus. Diastolic dysfunction.Right VentricleRight ventricle size is normal. Normal systolic function.Left AtriumLeft atrium is severely dilated.Right AtriumRight atrium is moderately dilated.IVC/SVCIVC diameter is less than or equal to 21 mm and decreases greater than 50% during inspiration; therefore the estimated right atrial pressure is normal (~0-5 mmHg).Mitral ValveMitral valve structure is normal. Moderate transvalvular regurgitation with an eccentrically directed jet. No PISA radium or pulmonary vein doppler was done therefore unable to accurately assess degree of MR. No stenosis.Tricuspid ValveTricuspid valve structure is normal. There is trivial tricuspid regurgitation.Insuffici ent regurgant jet to estimate RVSP. No stenosis.Aortic ValveAortic valve opens well. Mildly calcified cusps. Trace transvalvular regurgitation. No evidence of aortic stenosis.Pulmonic ValveNot well visualized.Ascending AortaNormal sized annulus and sinus of Valsalva.PericardiumNo pericardial effusion.Study DetailsStudy quality experienced technical difficulty. A complete echocardiogram was performed using 2D. [facility] 19:42:44* Test Item Value Reference Range Interpretation Comme nts Height (test code = 5409578734) in Weight (test code = 6980169343) lbs Systolic BP (test code = 9307780871) mmHg Diastolic BP (test code = 1343973886) mmHg Heart Rate (test code = 8949831442) bpm BSA (test code = 3785955853) 1.87 m2 LVOT diameter (test code = 1677370461) 2.04 cm LVOT area (test code = 3363236633) 3.30 cm2 LA size (test code = 7752283265) 4.7 cm Ao root diam (test code = 6438912192) 2.70 cm Aortic root (test code = 9434522721) 2.7 cm Ao root annulus (test code = 6422612717) 2.7 cm MV Peak E Kim (test code = 7066794042) 99.4 cm/s MV Peak A Kim (test code = 5195564925) 60.5 cm/s E/A ratio (test code = 2781428105) ratio MV valve area p 1/2 method (test code = 0165867504) 7.30 cm2 MV dec slope (test code = 6973663055) 961.50 cm/s2 MV P1/2t max kim (test code = 5306915585) 98.40 cm/s MV Prop V (test code = 4249180430) 23.50 cm/s LVOT stroke volume (test code = 0207150312) 52.80 cm3 LVOT peak kim (test code = 5094239132) 99.3 cm/s LVOT mn grad (test code = 1729699926) mmHg AV LVOT peak gradient (test code = 4073768632) mmHg LVOT peak VTI (test code = 5576555620) 16.1 cm LV V1 mean (test code = 0000433301) 60.90 cm/s Aortic valve mean velocity (test code = 4252569405) 67.7 cm/s Ao peak kim (test code = 9178881964) 114.5 cm/s Ao VTI (test code = 0408299323) 17.9 cm AV area by cont VTI (test code = 2525998567) 3.0 cm2 AV area peak kim (test code = 1444505691) 2.8 cm2 Ao max PG (test code = 8519884373) 5.20 mm[Hg] AV peak gradient (test code = 8896543246) mmHg AV valve area (test code = 9107202000) 3.00 cm2 AV mean gradient (test code = 5691778212) mmHg TR Peak Kim (test code = 1502761934) 226.8 cm/s Triscuspid Valve Regurgitation Peak Gradient (test code = 6870188112) mmHg LAV(MOD-sp2) (test code = 4038601393) 106.60 mL Tapse (test code = 5935876688) 1.94 cm Radiology Study observation (narrative) (test code = 01849-3) JOCELIN (test code = JOCELIN) ?Left?Ventricle: Left ventricle is mildly dilated. Normal wall thickness. Moderate anterolateral and inferolateral hypokinesia. Mildly reduced systolic function with a visually estimated EF of 40 - 45%. Calculated EF is 43% by modified Daniels method. No UAE was used therefore unable to rule out LV thrombus. Diastolic dysfunction. ?Mitral?Valve: Moderate transvalvular regurgitation with an eccentrically directed jet. No PISA radium or pulmonary vein doppler was done therefore unable to accurately assess degree of MR. ?Left?Atrium: Left atrium is severely dilated. ?Right?Atrium: Right atrium is moderately dilated. ?Tricuspid?Valve: Tricuspid valve structure is normal. There is trivial tricuspid regurgitation.Insuffici ent regurgant jet to estimate RVSP. Left VentricleLeft ventricle is mildly dilated. Normal wall thickness. Moderate anterolateral and inferolateral hypokinesia. Mildly reduced systolic function with a visually estimated EF of 40 - 45%. Calculated EF is 43% by modified Daniels method. No UAE was used therefore unable to rule out LV thrombus. Diastolic dysfunction.Right VentricleRight ventricle size is normal. Normal systolic function.Left AtriumLeft atrium is severely dilated.Right AtriumRight atrium is moderately dilated.IVC/SVCIVC diameter is less than or equal to 21 mm and decreases greater than 50% during inspiration; therefore the estimated right atrial pressure is normal (~0-5 mmHg).Mitral ValveMitral valve structure is normal. Moderate transvalvular regurgitation with an eccentrically directed jet. No PISA radium or pulmonary vein doppler was done therefore unable to accurately assess degree of MR. No stenosis.Tricuspid ValveTricuspid valve structure is normal. There is trivial tricuspid regurgitation.Insuffici ent regurgant jet to estimate RVSP. No stenosis.Aortic ValveAortic valve opens well. Mildly calcified cusps. Trace transvalvular regurgitation. No evidence of aortic stenosis.Pulmonic ValveNot well visualized.Ascending AortaNormal sized annulus and sinus of Valsalva.PericardiumNo pericardial effusion.Study DetailsStudy quality experienced technical difficulty. A complete echocardiogram was performed using 2D. [facility] [id number] 23:23:07* Test Item Value Reference Range Interpretation Comments TROPONIN I (test code = 8068818721) 3.250 ng/mL See_Comment H [Automated message] The system which generated this result transmitted reference range: <=0.034. The reference range was not used to interpret this result as normal/abnormal. JOCELIN (test code = JOCELIN) Reference (Normal) Range (defined by the 99th percentile reference limit): <= 0.034 ng/mL Note: Cardiac troponin begins to rise 3-4 hours after the onset of ischemia. Repeat in 4-6 hours if the sample was drawn within 3-4 hours of the onset of the symptom and found normal. Diagnosis of myocardial injury is made with acute changes in cTn concentrations with at least one serial sample above the 99th percentile upper reference limit (URL), taken together with the patient's clinical presentation. Biotin has been reported to cause a negative bias, interpret results relative to patient's use of biotin. Lab Interpretation (test code = 43718-9) Abnormal [facility] [id number] 23:23:07* Test Item Value Reference Range Interpretation Comments TROPONIN I (test code = [id number]) 3.250 ng/mL See_Comment H [Automated message] The system which generated this result transmitted reference range: <=0.034. The reference range was not used to interpret this result as normal/abnormal. JOCELIN (test code = JOCELIN) Reference (Normal) Range (defined by the 99th percentile reference limit): <= 0.034 ng/mL Note: Cardiac troponin begins to rise 3-4 hours after the onset of ischemia. Repeat in 4-6 hours if the sample was drawn within 3-4 hours of the onset of the symptom and found normal. Diagnosis of myocardial injury is made with acute changes in cTn concentrations with at least one serial sample above the 99th percentile upper reference limit (URL), taken together with the patient's clinical presentation. Biotin has been reported to cause a negative bias, interpret results relative to patient's use of biotin. Lab Interpretation (test code = 12103-8) Abnormal [facility] [id number] 23:23:07* Test Item Value Reference Range Interpretation Comments TROPONIN I (test code = [id number]) 3.250 ng/mL See_Comment H [Automated message] The system which generated this result transmitted reference range: <=0.034. The reference range was not used to interpret this result as normal/abnormal. JOCELIN (test code = JOCELIN) Reference (Normal) Range (defined by the 99th percentile reference limit): <= 0.034 ng/mL Note: Cardiac troponin begins to rise 3-4 hours after the onset of ischemia. Repeat in 4-6 hours if the sample was drawn within 3-4 hours of the onset of the symptom and found normal. Diagnosis of myocardial injury is made with acute changes in cTn concentrations with at least one serial sample above the 99th percentile upper reference limit (URL), taken together with the patient's clinical presentation. Biotin has been reported to cause a negative bias, interpret results relative to patient's use of biotin. Lab Interpretation (test code = 40457-6) Abnormal [facility] [id number] 23:23:07* Test Item Value Reference Range Interpretation Comments TROPONIN I (test code = [id number]) 3.250 ng/mL See_Comment H [Automated message] The system which generated this result transmitted reference range: <=0.034. The reference range was not used to interpret this result as normal/abnormal. JOCELIN (test code = JOCELIN) Reference (Normal) Range (defined by the 99th percentile reference limit): <= 0.034 ng/mL Note: Cardiac troponin begins to rise 3-4 hours after the onset of ischemia. Repeat in 4-6 hours if the sample was drawn within 3-4 hours of the onset of the symptom and found normal. Diagnosis of myocardial injury is made with acute changes in cTn concentrations with at least one serial sample above the 99th percentile upper reference limit (URL), taken together with the patient's clinical presentation. Biotin has been reported to cause a negative bias, interpret results relative to patient's use of biotin. Lab Interpretation (test code = 55053-8) Abnormal [facility] [id number] 23:23:07* Test Item Value Reference Range Interpretation Comments TROPONIN I (test code = [id number]) 3.250 ng/mL See_Comment H [Automated message] The system which generated this result transmitted reference range: <=0.034. The reference range was not used to interpret this result as normal/abnormal. JOCELIN (test code = JOCELIN) Reference (Normal) Range (defined by the 99th percentile reference limit): <= 0.034 ng/mL Note: Cardiac troponin begins to rise 3-4 hours after the onset of ischemia. Repeat in 4-6 hours if the sample was drawn within 3-4 hours of the onset of the symptom and found normal. Diagnosis of myocardial injury is made with acute changes in cTn concentrations with at least one serial sample above the 99th percentile upper reference limit (URL), taken together with the patient's clinical presentation. Biotin has been reported to cause a negative bias, interpret results relative to patient's use of biotin. Lab Interpretation (test code = 17299-9) Abnormal [facility] [id number] 08:31:08* Test Item Value Reference Range Interpretation Comments TROPONIN I (test code = [id number]) 5.210 ng/mL See_Comment H [Automated message] The system which generated this result transmitted reference range: <=0.034. The reference range was not used to interpret this result as normal/abnormal. JOCELIN (test code = JOCELIN) Reference (Normal) Range (defined by the 99th percentile reference limit): <= 0.034 ng/mL Note: Cardiac troponin begins to rise 3-4 hours after the onset of ischemia. Repeat in 4-6 hours if the sample was drawn within 3-4 hours of the onset of the symptom and found normal. Diagnosis of myocardial injury is made with acute changes in cTn concentrations with at least one serial sample above the 99th percentile upper reference limit (URL), taken together with the patient's clinical presentation. Biotin has been reported to cause a negative bias, interpret results relative to patient's use of biotin. Lab Interpretation (test code = 84404-3) Abnormal [facility] [id number] 08:31:08* Test Item Value Reference Range Interpretation Comments TROPONIN I (test code = [id number]) 5.210 ng/mL See_Comment H [Automated message] The system which generated this result transmitted reference range: <=0.034. The reference range was not used to interpret this result as normal/abnormal. JOCELIN (test code = JOCELIN) Reference (Normal) Range (defined by the 99th percentile reference limit): <= 0.034 ng/mL Note: Cardiac troponin begins to rise 3-4 hours after the onset of ischemia. Repeat in 4-6 hours if the sample was drawn within 3-4 hours of the onset of the symptom and found normal. Diagnosis of myocardial injury is made with acute changes in cTn concentrations with at least one serial sample above the 99th percentile upper reference limit (URL), taken together with the patient's clinical presentation. Biotin has been reported to cause a negative bias, interpret results relative to patient's use of biotin. Lab Interpretation (test code = 15605-9) Abnormal [facility] [id number] 08:31:08* Test Item Value Reference Range Interpretation Comments TROPONIN I (test code = [id number]) 5.210 ng/mL See_Comment H [Automated message] The system which generated this result transmitted reference range: <=0.034. The reference range was not used to interpret this result as normal/abnormal. JOCELIN (test code = JOCELIN) Reference (Normal) Range (defined by the 99th percentile reference limit): <= 0.034 ng/mL Note: Cardiac troponin begins to rise 3-4 hours after the onset of ischemia. Repeat in 4-6 hours if the sample was drawn within 3-4 hours of the onset of the symptom and found normal. Diagnosis of myocardial injury is made with acute changes in cTn concentrations with at least one serial sample above the 99th percentile upper reference limit (URL), taken together with the patient's clinical presentation. Biotin has been reported to cause a negative bias, interpret results relative to patient's use of biotin. Lab Interpretation (test code = 39133-1) Abnormal [facility] [id number] 08:31:08* Test Item Value Reference Range Interpretation Comments TROPONIN I (test code = [id number]) 5.210 ng/mL See_Comment H [Automated message] The system which generated this result transmitted reference range: <=0.034. The reference range was not used to interpret this result as normal/abnormal. JOCELIN (test code = JOCELIN) Reference (Normal) Range (defined by the 99th percentile reference limit): <= 0.034 ng/mL Note: Cardiac troponin begins to rise 3-4 hours after the onset of ischemia. Repeat in 4-6 hours if the sample was drawn within 3-4 hours of the onset of the symptom and found normal. Diagnosis of myocardial injury is made with acute changes in cTn concentrations with at least one serial sample above the 99th percentile upper reference limit (URL), taken together with the patient's clinical presentation. Biotin has been reported to cause a negative bias, interpret results relative to patient's use of biotin. Lab Interpretation (test code = 71714-7) [facility] Test Item Value Reference Range Interpretation Comments Procalcitonin (test code = [id number]) 0.04 ng/mL See_Comment [Automated message] The system which generated this result transmitted reference range: <=0.08. The reference range was not used to interpret this result as normal/abnormal . JOCELIN (test code = JOCELIN) INTERPRETATION OF PROCALCITONIN RESULTS IN ADULTS >= 18 YEARS OF AGE Initiation and discontinuation of antibiotics on patients with suspected or confirmed Lower Respiratory Tract Infection in Adults >= 18 years of age. + +------ + ----+ +|Procalcit onin |Interpretation ?|Antibiotic ? ? |Considerations ? |ng/mL ? | ?|recommendation | ? + +------ + ----+ +| <0.1 ? | Bacterial ? ? ?| Strongly ? ? ?| ? | ?| infection very | discouraged ? | Overruling: ? | ?| unlikely ? ? ? | ? | ? Clinically unstable ? ? ? + +------ + ----+ ? High risk for adverse ? ? | <0.25 ?| Bacterial ? ? ?| Discouraged ? | ? outcome ? | ?| infection ? ? ?| ? | ? SEE IMPORTANT NOTE ?| ?| unlikely ? ? ? | ? | ? + +------ + ----+ +| >=0.25 ? ? ? | Bacterial ? ? ?| Encouraged ? ?| ? | ?| infection ? ? ?| ? | ? | ?| likely ? | ? | Consider treatment failure ?+ +----- + -----+ if levels does not decrease | >0.5 ? | Bacterial ? ? ?| Strongly ? ? ?| appropriately ? | ?| infection very | encouraged ? ?| ? | ?| likely ? | ? | ? + +------ + ----+ + Discontinuation of antibiotics in high-acuity patients with suspected or confirmed sepsis in Adults >= 18 years of age. + +------ + ----+ +|Procalcit onin |Interpretation ?|Antibiotic ? ? |Considerations ? |ng/mL ? | ?|recommendation | ? + +------ + ----+ +| <0.25 ?| Bacterial ? ? ?| Strongly ? ? ?| ? | ?| infection very | discouraged ? | Overruling: ? | ?| unlikely ? ? ? | ? | ? Clinically unstable ? ? ? + +------ + ----+ ? High risk for adverse ? ? | <0.5 or drop | Bacterial ? ? ?| Discouraged ? | ? outcome ? | >80% from ? ?| infection ? ? ?| ? | ? SEE IMPORTANT NOTE ?| highest PCT ?| unlikely ? ? ? | ? | ? | level ?| ?| ? | ? + +------ + ----+ +| >=0.5 ?| Bacterial ? ? ?| Encouraged ? ?| ? | ?| infection ? ? ?| ? | ? | ?| likely ? | ? | Consider treatment failure ?+ +----- + -----+ if levels does not decrease | >1.0 ? | Bacterial ? ? ?| Strongly ? ? ?| appropriately ? | ?| infection very | encouraged ? ?| ? | ?| likely ? | ? | ? + +------ + ----+ + Percentage of drop of Procalcitonin calculation for Discontinuation of antibiotics in high-acuity patients with suspected or confirmed sepsis in Adults >= 18 years of age. ? Procalcitonin highest{}-Procalcitoni n current{}Delta Procalcitonin = ___ x100% ? Procalcitonin current {} IMPORTANT NOTE: Procalcitonin may be elevated without bacterial infection by physiologic stress related to trauma, becerril, chronic dialysis, metastatic cancer, surgery in the past seven days, malaria, some fungal infections, and some forms of vasculitis. The interpretation algorithm may not apply to patients with immunosuppression (equivalent of >10 mg of prednisone daily), HIV with CD4 cell count < 350 cells/mm3, active malignancy on systemic chemotherapy, solid organ transplant or hematopoietic stem cell transplantation, or hospital acquired pneumonia. Additionally, some clinical trials of procalcitonin have excluded patients with shock requiring vasopressor use, acute respiratory failure requiring mechanical ventilation, or those with known lung abscess/empyema. For further information please refer to:[email or web address] Lab Interpretation (test code = 39552-7) [facility]* Test Item Value Reference Range Interpretation Comments Procalcitonin (test code = [id number]) 0.04 ng/mL See_Comment [Automated message] The system which generated this result transmitted reference range: <=0.08. The reference range was not used to interpret this result as normal/abnormal . JOCELIN (test code = JOCELIN) INTERPRETATION OF PROCALCITONIN RESULTS IN ADULTS >= 18 YEARS OF AGE Initiation and discontinuation of antibiotics on patients with suspected or confirmed Lower Respiratory Tract Infection in Adults >= 18 years of age. + +------ + ----+ +|Procalcit onin |Interpretation ?|Antibiotic ? ? |Considerations ? |ng/mL ? | ?|recommendation | ? + +------ + ----+ +| <0.1 ? | Bacterial ? ? ?| Strongly ? ? ?| ? | ?| infection very | discouraged ? | Overruling: ? | ?| unlikely ? ? ? | ? | ? Clinically unstable ? ? ? + +------ + ----+ ? High risk for adverse ? ? | <0.25 ?| Bacterial ? ? ?| Discouraged ? | ? outcome ? | ?| infection ? ? ?| ? | ? SEE IMPORTANT NOTE ?| ?| unlikely ? ? ? | ? | ? + +------ + ----+ +| >=0.25 ? ? ? | Bacterial ? ? ?| Encouraged ? ?| ? | ?| infection ? ? ?| ? | ? | ?| likely ? | ? | Consider treatment failure ?+ +----- + -----+ if levels does not decrease | >0.5 ? | Bacterial ? ? ?| Strongly ? ? ?| appropriately ? | ?| infection very | encouraged ? ?| ? | ?| likely ? | ? | ? + +------ + ----+ + Discontinuation of antibiotics in high-acuity patients with suspected or confirmed sepsis in Adults >= 18 years of age. + +------ + ----+ +|Procalcit onin |Interpretation ?|Antibiotic ? ? |Considerations ? |ng/mL ? | ?|recommendation | ? + +------ + ----+ +| <0.25 ?| Bacterial ? ? ?| Strongly ? ? ?| ? | ?| infection very | discouraged ? | Overruling: ? | ?| unlikely ? ? ? | ? | ? Clinically unstable ? ? ? + +------ + ----+ ? High risk for adverse ? ? | <0.5 or drop | Bacterial ? ? ?| Discouraged ? | ? outcome ? | >80% from ? ?| infection ? ? ?| ? | ? SEE IMPORTANT NOTE ?| highest PCT ?| unlikely ? ? ? | ? | ? | level ?| ?| ? | ? + +------ + ----+ +| >=0.5 ?| Bacterial ? ? ?| Encouraged ? ?| ? | ?| infection ? ? ?| ? | ? | ?| likely ? | ? | Consider treatment failure ?+ +----- + -----+ if levels does not decrease | >1.0 ? | Bacterial ? ? ?| Strongly ? ? ?| appropriately ? | ?| infection very | encouraged ? ?| ? | ?| likely ? | ? | ? + +------ + ----+ + Percentage of drop of Procalcitonin calculation for Discontinuation of antibiotics in high-acuity patients with suspected or confirmed sepsis in Adults >= 18 years of age. ? Procalcitonin highest{}-Procalcitoni n current{}Delta Procalcitonin = ___ x100% ? Procalcitonin current {} IMPORTANT NOTE: Procalcitonin may be elevated without bacterial infection by physiologic stress related to trauma, becerril, chronic dialysis, metastatic cancer, surgery in the past seven days, malaria, some fungal infections, and some forms of vasculitis. The interpretation algorithm may not apply to patients with immunosuppression (equivalent of >10 mg of prednisone daily), HIV with CD4 cell count < 350 cells/mm3, active malignancy on systemic chemotherapy, solid organ transplant or hematopoietic stem cell transplantation, or hospital acquired pneumonia. Additionally, some clinical trials of procalcitonin have excluded patients with shock requiring vasopressor use, acute respiratory failure requiring mechanical ventilation, or those with known lung abscess/empyema. For further information please refer to:[email or web address] Lab Interpretation (test code = 72753-0) [facility]* Test Item Value Reference Range Interpretation Comments Procalcitonin (test code = [id number]) 0.04 ng/mL See_Comment [Automated message] The system which generated this result transmitted reference range: <=0.08. The reference range was not used to interpret this result as normal/abnormal . JOCELIN (test code = JOCELIN) INTERPRETATION OF PROCALCITONIN RESULTS IN ADULTS >= 18 YEARS OF AGE Initiation and discontinuation of antibiotics on patients with suspected or confirmed Lower Respiratory Tract Infection in Adults >= 18 years of age. + +------ + ----+ +|Procalcit onin |Interpretation ?|Antibiotic ? ? |Considerations ? |ng/mL ? | ?|recommendation | ? + +------ + ----+ +| <0.1 ? | Bacterial ? ? ?| Strongly ? ? ?| ? | ?| infection very | discouraged ? | Overruling: ? | ?| unlikely ? ? ? | ? | ? Clinically unstable ? ? ? + +------ + ----+ ? High risk for adverse ? ? | <0.25 ?| Bacterial ? ? ?| Discouraged ? | ? outcome ? | ?| infection ? ? ?| ? | ? SEE IMPORTANT NOTE ?| ?| unlikely ? ? ? | ? | ? + +------ + ----+ +| >=0.25 ? ? ? | Bacterial ? ? ?| Encouraged ? ?| ? | ?| infection ? ? ?| ? | ? | ?| likely ? | ? | Consider treatment failure ?+ +----- + -----+ if levels does not decrease | >0.5 ? | Bacterial ? ? ?| Strongly ? ? ?| appropriately ? | ?| infection very | encouraged ? ?| ? | ?| likely ? | ? | ? + +------ + ----+ + Discontinuation of antibiotics in high-acuity patients with suspected or confirmed sepsis in Adults >= 18 years of age. + +------ + ----+ +|Procalcit onin |Interpretation ?|Antibiotic ? ? |Considerations ? |ng/mL ? | ?|recommendation | ? + +------ + ----+ +| <0.25 ?| Bacterial ? ? ?| Strongly ? ? ?| ? | ?| infection very | discouraged ? | Overruling: ? | ?| unlikely ? ? ? | ? | ? Clinically unstable ? ? ? + +------ + ----+ ? High risk for adverse ? ? | <0.5 or drop | Bacterial ? ? ?| Discouraged ? | ? outcome ? | >80% from ? ?| infection ? ? ?| ? | ? SEE IMPORTANT NOTE ?| highest PCT ?| unlikely ? ? ? | ? | ? | level ?| ?| ? | ? + +------ + ----+ +| >=0.5 ?| Bacterial ? ? ?| Encouraged ? ?| ? | ?| infection ? ? ?| ? | ? | ?| likely ? | ? | Consider treatment failure ?+ +----- + -----+ if levels does not decrease | >1.0 ? | Bacterial ? ? ?| Strongly ? ? ?| appropriately ? | ?| infection very | encouraged ? ?| ? | ?| likely ? | ? | ? + +------ + ----+ + Percentage of drop of Procalcitonin calculation for Discontinuation of antibiotics in high-acuity patients with suspected or confirmed sepsis in Adults >= 18 years of age. ? Procalcitonin highest{}-Procalcitoni n current{}Delta Procalcitonin = ___ x100% ? Procalcitonin current {} IMPORTANT NOTE: Procalcitonin may be elevated without bacterial infection by physiologic stress related to trauma, becerril, chronic dialysis, metastatic cancer, surgery in the past seven days, malaria, some fungal infections, and some forms of vasculitis. The interpretation algorithm may not apply to patients with immunosuppression (equivalent of >10 mg of prednisone daily), HIV with CD4 cell count < 350 cells/mm3, active malignancy on systemic chemotherapy, solid organ transplant or hematopoietic stem cell transplantation, or hospital acquired pneumonia. Additionally, some clinical trials of procalcitonin have excluded patients with shock requiring vasopressor use, acute respiratory failure requiring mechanical ventilation, or those with known lung abscess/empyema. For further information please refer to:[email or web address] Lab Interpretation (test code = 94273-9) [facility]29* Test Item Value Reference Range Interpretation Comments Procalcitonin (test code = [id number]) 0.04 ng/mL See_Comment [Automated message] The system which generated this result transmitted reference range: <=0.08. The reference range was not used to interpret this result as normal/abnormal . JOCELIN (test code = JOCELIN) INTERPRETATION OF PROCALCITONIN RESULTS IN ADULTS >= 18 YEARS OF AGE Initiation and discontinuation of antibiotics on patients with suspected or confirmed Lower Respiratory Tract Infection in Adults >= 18 years of age. + +------ + ----+ +|Procalcit onin |Interpretation ?|Antibiotic ? ? |Considerations ? |ng/mL ? | ?|recommendation | ? + +------ + ----+ +| <0.1 ? | Bacterial ? ? ?| Strongly ? ? ?| ? | ?| infection very | discouraged ? | Overruling: ? | ?| unlikely ? ? ? | ? | ? Clinically unstable ? ? ? + +------ + ----+ ? High risk for adverse ? ? | <0.25 ?| Bacterial ? ? ?| Discouraged ? | ? outcome ? | ?| infection ? ? ?| ? | ? SEE IMPORTANT NOTE ?| ?| unlikely ? ? ? | ? | ? + +------ + ----+ +| >=0.25 ? ? ? | Bacterial ? ? ?| Encouraged ? ?| ? | ?| infection ? ? ?| ? | ? | ?| likely ? | ? | Consider treatment failure ?+ +----- + -----+ if levels does not decrease | >0.5 ? | Bacterial ? ? ?| Strongly ? ? ?| appropriately ? | ?| infection very | encouraged ? ?| ? | ?| likely ? | ? | ? + +------ + ----+ + Discontinuation of antibiotics in high-acuity patients with suspected or confirmed sepsis in Adults >= 18 years of age. + +------ + ----+ +|Procalcit onin |Interpretation ?|Antibiotic ? ? |Considerations ? |ng/mL ? | ?|recommendation | ? + +------ + ----+ +| <0.25 ?| Bacterial ? ? ?| Strongly ? ? ?| ? | ?| infection very | discouraged ? | Overruling: ? | ?| unlikely ? ? ? | ? | ? Clinically unstable ? ? ? + +------ + ----+ ? High risk for adverse ? ? | <0.5 or drop | Bacterial ? ? ?| Discouraged ? | ? outcome ? | >80% from ? ?| infection ? ? ?| ? | ? SEE IMPORTANT NOTE ?| highest PCT ?| unlikely ? ? ? | ? | ? | level ?| ?| ? | ? + +------ + ----+ +| >=0.5 ?| Bacterial ? ? ?| Encouraged ? ?| ? | ?| infection ? ? ?| ? | ? | ?| likely ? | ? | Consider treatment failure ?+ +----- + -----+ if levels does not decrease | >1.0 ? | Bacterial ? ? ?| Strongly ? ? ?| appropriately ? | ?| infection very | encouraged ? ?| ? | ?| likely ? | ? | ? + +------ + ----+ + Percentage of drop of Procalcitonin calculation for Discontinuation of antibiotics in high-acuity patients with suspected or confirmed sepsis in Adults >= 18 years of age. ? Procalcitonin highest{}-Procalcitoni n current{}Delta Procalcitonin = ___ x100% ? Procalcitonin current {} IMPORTANT NOTE: Procalcitonin may be elevated without bacterial infection by physiologic stress related to trauma, becerril, chronic dialysis, metastatic cancer, surgery in the past seven days, malaria, some fungal infections, and some forms of vasculitis. The interpretation algorithm may not apply to patients with immunosuppression (equivalent of >10 mg of prednisone daily), HIV with CD4 cell count < 350 cells/mm3, active malignancy on systemic chemotherapy, solid organ transplant or hematopoietic stem cell transplantation, or hospital acquired pneumonia. Additionally, some clinical trials of procalcitonin have excluded patients with shock requiring vasopressor use, acute respiratory failure requiring mechanical ventilation, or those with known lung abscess/empyema. For further information please refer to:[email or web address] Lab Interpretation (test code = 30242-2) [facility]21:29* Test Item Value Reference Range Interpretation Comments Procalcitonin (test code = [id number]) 0.04 ng/mL See_Comment [Automated message] The system which generated this result transmitted reference range: <=0.08. The reference range was not used to interpret this result as normal/abnormal . JOCELIN (test code = JOCELIN) INTERPRETATION OF PROCALCITONIN RESULTS IN ADULTS >= 18 YEARS OF AGE Initiation and discontinuation of antibiotics on patients with suspected or confirmed Lower Respiratory Tract Infection in Adults >= 18 years of age. + +------ + ----+ +|Procalcit onin |Interpretation ?|Antibiotic ? ? |Considerations ? |ng/mL ? | ?|recommendation | ? + +------ + ----+ +| <0.1 ? | Bacterial ? ? ?| Strongly ? ? ?| ? | ?| infection very | discouraged ? | Overruling: ? | ?| unlikely ? ? ? | ? | ? Clinically unstable ? ? ? + +------ + ----+ ? High risk for adverse ? ? | <0.25 ?| Bacterial ? ? ?| Discouraged ? | ? outcome ? | ?| infection ? ? ?| ? | ? SEE IMPORTANT NOTE ?| ?| unlikely ? ? ? | ? | ? + +------ + ----+ +| >=0.25 ? ? ? | Bacterial ? ? ?| Encouraged ? ?| ? | ?| infection ? ? ?| ? | ? | ?| likely ? | ? | Consider treatment failure ?+ +----- + -----+ if levels does not decrease | >0.5 ? | Bacterial ? ? ?| Strongly ? ? ?| appropriately ? | ?| infection very | encouraged ? ?| ? | ?| likely ? | ? | ? + +------ + ----+ + Discontinuation of antibiotics in high-acuity patients with suspected or confirmed sepsis in Adults >= 18 years of age. + +------ + ----+ +|Procalcit onin |Interpretation ?|Antibiotic ? ? |Considerations ? |ng/mL ? | ?|recommendation | ? + +------ + ----+ +| <0.25 ?| Bacterial ? ? ?| Strongly ? ? ?| ? | ?| infection very | discouraged ? | Overruling: ? | ?| unlikely ? ? ? | ? | ? Clinically unstable ? ? ? + +------ + ----+ ? High risk for adverse ? ? | <0.5 or drop | Bacterial ? ? ?| Discouraged ? | ? outcome ? | >80% from ? ?| infection ? ? ?| ? | ? SEE IMPORTANT NOTE ?| highest PCT ?| unlikely ? ? ? | ? | ? | level ?| ?| ? | ? + +------ + ----+ +| >=0.5 ?| Bacterial ? ? ?| Encouraged ? ?| ? | ?| infection ? ? ?| ? | ? | ?| likely ? | ? | Consider treatment failure ?+ +----- + -----+ if levels does not decrease | >1.0 ? | Bacterial ? ? ?| Strongly ? ? ?| appropriately ? | ?| infection very | encouraged ? ?| ? | ?| likely ? | ? | ? + +------ + ----+ + Percentage of drop of Procalcitonin calculation for Discontinuation of antibiotics in high-acuity patients with suspected or confirmed sepsis in Adults >= 18 years of age. ? Procalcitonin highest{}-Procalcitoni n current{}Delta Procalcitonin = ___ x100% ? Procalcitonin current {} IMPORTANT NOTE: Procalcitonin may be elevated without bacterial infection by physiologic stress related to trauma, becerril, chronic dialysis, metastatic cancer, surgery in the past seven days, malaria, some fungal infections, and some forms of vasculitis. The interpretation algorithm may not apply to patients with immunosuppression (equivalent of >10 mg of prednisone daily), HIV with CD4 cell count < 350 cells/mm3, active malignancy on systemic chemotherapy, solid organ transplant or hematopoietic stem cell transplantation, or hospital acquired pneumonia. Additionally, some clinical trials of procalcitonin have excluded patients with shock requiring vasopressor use, acute respiratory failure requiring mechanical ventilation, or those with known lung abscess/empyema. For further information please refer to:[email or web address] Lab Interpretation (test code = 57792-1) [facility] (NA, K, CL, CO2, GLUCOSE, BUN, CREATININE, CA)2022-09-15 08:19:48* Test Item Value Reference Range Interpretation Comme nts NA (test code = 9828525145) 141 mmol/L 135-145 K (test code = 2307276126) 3.0 mmol/L 3.5-5.0 L CL (test code = 5828214285) 110 mmol/L 98-108 H CO2 TOTAL (test code = 5823322246) 24 mmol/L 23-31 AGAP (test code = 0733731183) 2-16 BUN (test code = 6423451515) 14 mg/dL 7-23 GLUCOSE (test code = 1286448244) 89 mg/dL 70-110 CREATININE (test code = 1725386139) 0.83 mg/dL 0.60-1.25 CALCIUM (test code = 9738412054) 7.1 mg/dL 8.6-10.6 L eGFR (test code = 2829137900) mL/min/1.73m2 JOCELIN (test code = JOCELIN) Association of Glomerular Filtration Rate (GFR) and Staging of Kidney Disease* + --+ --+ ------+| GFR (mL/min/1.73 m2) ?| With Kidney Damage ?| ?Without Kidney Damage+ --------+ --------+ +| ?>90 ?| ?Stage one ?| ? Normal ?+ ---+ ---+ -------+| ?60-89 ?| ?Stage two ?| ? Decreased GFR ? + --+ --+ ------+| ?30-59 ?| ?Stage three ?| ? Stage three ? + --+ --+ ------+| ?15-29 ?| ?Stage four ? | ? Stage four ?+ ---+ ---+ -------+| ?<15 (or dialysis) ? ?| ?Stage five ? | ? Stage five ?+ ---+ ---+ -------+ *Each stage assumes the associated GFR level has been in effect for at least three months. ?Stages 1 to 5, with or without kidney disease, indicate chronic kidney disease. Notes: Determination of stages one and two (with eGFR >59mL/min/1.73 m2) requires estimation of kidney damage for at least three months as defined by structural or functional abnormalities of the kidney, manifested by either:Pathological abnormalities or Markers of kidney damage (including abnormalities in the composition of the blood or urine or abnormalities in imaging tests). Lab Interpretation (test code = 55062-1) Abnormal [facility] METABOLIC PANEL (NA, K, CL, CO2, GLUCOSE, BUN, CREATININE, CA)2022-09-15 08:19:48* Test Item Value Reference Range Interpretation Comme nts NA (test code = 0225113561) 141 mmol/L 135-145 K (test code = 5324073939) 3.0 mmol/L 3.5-5.0 L CL (test code = 4024492115) 110 mmol/L 98-108 H CO2 TOTAL (test code = 4999258432) 24 mmol/L 23-31 AGAP (test code = 2268082602) 2-16 BUN (test code = 7004254336) 14 mg/dL 7-23 GLUCOSE (test code = 1898854602) 89 mg/dL 70-110 CREATININE (test code = 1244383074) 0.83 mg/dL 0.60-1.25 CALCIUM (test code = 5243869225) 7.1 mg/dL 8.6-10.6 L eGFR (test code = 6371194094) mL/min/1.73m2 JOCELIN (test code = JOCELIN) Association of Glomerular Filtration Rate (GFR) and Staging of Kidney Disease* + --+ --+ ------+| GFR (mL/min/1.73 m2) ?| With Kidney Damage ?| ?Without Kidney Damage+ --------+ --------+ +| ?>90 ?| ?Stage one ?| ? Normal ?+ ---+ ---+ -------+| ?60-89 ?| ?Stage two ?| ? Decreased GFR ? + --+ --+ ------+| ?30-59 ?| ?Stage three ?| ? Stage three ? + --+ --+ ------+| ?15-29 ?| ?Stage four ? | ? Stage four ?+ ---+ ---+ -------+| ?<15 (or dialysis) ? ?| ?Stage five ? | ? Stage five ?+ ---+ ---+ -------+ *Each stage assumes the associated GFR level has been in effect for at least three months. ?Stages 1 to 5, with or without kidney disease, indicate chronic kidney disease. Notes: Determination of stages one and two (with eGFR >59mL/min/1.73 m2) requires estimation of kidney damage for at least three months as defined by structural or functional abnormalities of the kidney, manifested by either:Pathological abnormalities or Markers of kidney damage (including abnormalities in the composition of the blood or urine or abnormalities in imaging tests). Lab Interpretation (test code = 17499-9) [facility] (NA, K, CL, CO2, GLUCOSE, BUN, CREATININE, CA)2022-09-15 08:19:48* Test Item Value Reference Range Interpretation Comme nts NA (test code = 1491998966) 141 mmol/L 135-145 K (test code = 0053708417) 3.0 mmol/L 3.5-5.0 L CL (test code = 8098111599) 110 mmol/L 98-108 H CO2 TOTAL (test code = 8578402410) 24 mmol/L 23-31 AGAP (test code = 8640718186) 2-16 BUN (test code = 9396466284) 14 mg/dL 7-23 GLUCOSE (test code = 9865553112) 89 mg/dL 70-110 CREATININE (test code = 7170271728) 0.83 mg/dL 0.60-1.25 CALCIUM (test code = 4562552328) 7.1 mg/dL 8.6-10.6 L eGFR (test code = 9901274257) mL/min/1.73m2 JOCELIN (test code = JOCELIN) Association of Glomerular Filtration Rate (GFR) and Staging of Kidney Disease* + --+ --+ ------+| GFR (mL/min/1.73 m2) ?| With Kidney Damage ?| ?Without Kidney Damage+ --------+ --------+ +| ?>90 ?| ?Stage one ?| ? Normal ?+ ---+ ---+ -------+| ?60-89 ?| ?Stage two ?| ? Decreased GFR ? + --+ --+ ------+| ?30-59 ?| ?Stage three ?| ? Stage three ? + --+ --+ ------+| ?15-29 ?| ?Stage four ? | ? Stage four ?+ ---+ ---+ -------+| ?<15 (or dialysis) ? ?| ?Stage five ? | ? Stage five ?+ ---+ ---+ -------+ *Each stage assumes the associated GFR level has been in effect for at least three months. ?Stages 1 to 5, with or without kidney disease, indicate chronic kidney disease. Notes: Determination of stages one and two (with eGFR >59mL/min/1.73 m2) requires estimation of kidney damage for at least three months as defined by structural or functional abnormalities of the kidney, manifested by either:Pathological abnormalities or Markers of kidney damage (including abnormalities in the composition of the blood or urine or abnormalities in imaging tests). Lab Interpretation (test code = 57819-6) Abnormal [facility] METABOLIC PANEL (NA, K, CL, CO2, GLUCOSE, BUN, CREATININE, CA)2022-09-15 08:19:48* Test Item Value Reference Range Interpretation Comme nts NA (test code = 5419104224) 141 mmol/L 135-145 K (test code = 0236023234) 3.0 mmol/L 3.5-5.0 L CL (test code = 2555988637) 110 mmol/L 98-108 H CO2 TOTAL (test code = 1588280649) 24 mmol/L 23-31 AGAP (test code = 0551257578) 2-16 BUN (test code = 9771769827) 14 mg/dL 7-23 GLUCOSE (test code = 8687954357) 89 mg/dL 70-110 CREATININE (test code = 3518470433) 0.83 mg/dL 0.60-1.25 CALCIUM (test code = 8887068862) 7.1 mg/dL 8.6-10.6 L eGFR (test code = 0340368442) mL/min/1.73m2 JOCELIN (test code = JOCELIN) Association of Glomerular Filtration Rate (GFR) and Staging of Kidney Disease* + --+ --+ ------+| GFR (mL/min/1.73 m2) ?| With Kidney Damage ?| ?Without Kidney Damage+ --------+ --------+ +| ?>90 ?| ?Stage one ?| ? Normal ?+ ---+ ---+ -------+| ?60-89 ?| ?Stage two ?| ? Decreased GFR ? + --+ --+ ------+| ?30-59 ?| ?Stage three ?| ? Stage three ? + --+ --+ ------+| ?15-29 ?| ?Stage four ? | ? Stage four ?+ ---+ ---+ -------+| ?<15 (or dialysis) ? ?| ?Stage five ? | ? Stage five ?+ ---+ ---+ -------+ *Each stage assumes the associated GFR level has been in effect for at least three months. ?Stages 1 to 5, with or without kidney disease, indicate chronic kidney disease. Notes: Determination of stages one and two (with eGFR >59mL/min/1.73 m2) requires estimation of kidney damage for at least three months as defined by structural or functional abnormalities of the kidney, manifested by either:Pathological abnormalities or Markers of kidney damage (including abnormalities in the composition of the blood or urine or abnormalities in imaging tests). Lab Interpretation (test code = 52784-2) [facility] / [id number] 07:59:43* Test Item Value Reference Range Interpretation Comme nts PROTIME PATIENT (test code = 5964-2) See_Comment H [Automated messa ge] The system which generated this result transmitted reference range: 10.1 - 12.6 Seconds. The reference range was not used to interpret this result as normal/abnormal. INR (test code = 6301-6) Normal INR <1.1; Warfarin Therapeutic range 2.0 to 3.0 or 2.5 to 3.5, depending upon the indications. Lab Interpretation (test code = 95288-2) [facility] / [id number] 07:59:43* Test Item Value Reference Range Interpretation Comme nts PROTIME PATIENT (test code = 5964-2) See_Comment H [Automated messa ge] The system which generated this result transmitted reference range: 10.1 - 12.6 Seconds. The reference range was not used to interpret this result as normal/abnormal. INR (test code = 6301-6) Normal INR <1.1; Warfarin Therapeutic range 2.0 to 3.0 or 2.5 to 3.5, depending upon the indications. Lab Interpretation (test code = 39073-5) [facility] / [id number] 07:59:43* Test Item Value Reference Range Interpretation Comme nts PROTIME PATIENT (test code = 5964-2) See_Comment H [Automated messa ge] The system which generated this result transmitted reference range: 10.1 - 12.6 Seconds. The reference range was not used to interpret this result as normal/abnormal. INR (test code = 6301-6) Normal INR <1.1; Warfarin Therapeutic range 2.0 to 3.0 or 2.5 to 3.5, depending upon the indications. Lab Interpretation (test code = 43659-9) [facility] / [id number] 07:59:43* Test Item Value Reference Range Interpretation Comme nts PROTIME PATIENT (test code = 5964-2) See_Comment H [Automated messa ge] The system which generated this result transmitted reference range: 10.1 - 12.6 Seconds. The reference range was not used to interpret this result as normal/abnormal. INR (test code = 6301-6) Normal INR <1.1; Warfarin Therapeutic range 2.0 to 3.0 or 2.5 to 3.5, depending upon the indications. Lab Interpretation (test code = 39092-9) Abnormal [facility] WITH [id number] 07:49:44* Test Item Value Reference Range Interpretation Comme nts WBC (test code = 6690-2) See_Comment [Automated [employer]] The system which generated this result transmitted reference range: 4.20 - 10.70 10*3/?L. The reference range was not used to interpret this result as normal/abnormal. RBC (test code = 789-8) See_Comment L [Automated [employer]] The system which generated this result transmitted reference range: 4.26 - 5.52 10*6/?L. The reference range was not used to interpret this result as normal/abnormal. HGB (test code = 718-7) 12.0 g/dL 12.2-16.4 L HCT (test code = 4544-3) 36.0 % 38.4-49.3 L MCV (test code = 787-2) 85.5 fL 81.7-95.6 MCH (test code = 785-6) 28.5 pg 26.1-32.7 MCHC (test code = 786-4) 33.3 g/dL 31.2-35.0 RDW-SD (test code = 85571-5) 42.8 fL 38.5-51.6 RDW-CV (test code = 788-0) 13.7 % 12.1-15.4 PLT (test code = 777-3) See_Comment [Automated [employer]] The system which generated this result transmitted reference range: 150 - 328 10*3/?L. The reference range was not used to interpret this result as normal/abnormal. MPV (test code = 00243-0) 8.8 fL 9.8-13.0 L NRBC/100 WBC (test code = 3378397186) See_Comment [Automated [employer] ssage] The system which generated this result transmitted reference range: 0.0 - 10.0 /100 WBCs. The reference range was not used to interpret this result as normal/abnormal. NRBC x10^3 (test code = 4979417382) See_Comment [Automated messa ge] The system which generated this result transmitted reference range: 10*3/?L. The reference range was not used to interpret this result as normal/abnormal. GRAN MAT (NEUT) % (test code = 770-8) 61.0 % IMM GRAN % (test code = 6416551576) 0.30 % LYMPH % (test code = 736-9) 28.1 % MONO % (test code = 5905-5) 7.6 % EOS % (test code = 713-8) 2.5 % BASO % (test code = 706-2) 0.5 % GRAN MAT x10^3(ANC) (test code = 0161682257) 4.83 10*3/uL 1.99-6.95 IMM GRAN x10^3 (test code = 4595147609) 0.00-0.06 LYMPH x10^3 (test code = 731-0) 2.22 10*3/uL 1.09-3.23 MONO x10^3 (test code = 742-7) 0.60 10*3/uL 0.36-1.02 EOS x10^3 (test code = 711-2) 0.20 10*3/uL 0.06-0.53 BASO x10^3 (test code = 704-7) 0.04 10*3/uL 0.01-0.09 Lab Interpretation (test code = 30798-3) Abnormal [facility] WITH [id number] 07:49:44* Test Item Value Reference Range Interpretation Comme nts WBC (test code = 6690-2) See_Comment [Automated messa ge] The system which generated this result transmitted reference range: 4.20 - 10.70 10*3/?L. The reference range was not used to interpret this result as normal/abnormal. RBC (test code = 789-8) See_Comment L [Automated messa ge] The system which generated this result transmitted reference range: 4.26 - 5.52 10*6/?L. The reference range was not used to interpret this result as normal/abnormal. HGB (test code = 718-7) 12.0 g/dL 12.2-16.4 L HCT (test code = 4544-3) 36.0 % 38.4-49.3 L MCV (test code = 787-2) 85.5 fL 81.7-95.6 MCH (test code = 785-6) 28.5 pg 26.1-32.7 MCHC (test code = 786-4) 33.3 g/dL 31.2-35.0 RDW-SD (test code = 37282-7) 42.8 fL 38.5-51.6 RDW-CV (test code = 788-0) 13.7 % 12.1-15.4 PLT (test code = 777-3) See_Comment [Automated messa ge] The system which generated this result transmitted reference range: 150 - 328 10*3/?L. The reference range was not used to interpret this result as normal/abnormal. MPV (test code = 86763-2) 8.8 fL 9.8-13.0 L NRBC/100 WBC (test code = 9142883588) See_Comment [Automated [employer] ssage] The system which generated this result transmitted reference range: 0.0 - 10.0 /100 WBCs. The reference range was not used to interpret this result as normal/abnormal. NRBC x10^3 (test code = 0005813663) See_Comment [Automated [employer]] The system which generated this result transmitted reference range: 10*3/?L. The reference range was not used to interpret this result as normal/abnormal. GRAN MAT (NEUT) % (test code = 770-8) 61.0 % IMM GRAN % (test code = 2705490512) 0.30 % LYMPH % (test code = 736-9) 28.1 % MONO % (test code = 5905-5) 7.6 % EOS % (test code = 713-8) 2.5 % BASO % (test code = 706-2) 0.5 % GRAN MAT x10^3(ANC) (test code = 5399344742) 4.83 10*3/uL 1.99-6.95 IMM GRAN x10^3 (test code = 1311933390) 0.00-0.06 LYMPH x10^3 (test code = 731-0) 2.22 10*3/uL 1.09-3.23 MONO x10^3 (test code = 742-7) 0.60 10*3/uL 0.36-1.02 EOS x10^3 (test code = 711-2) 0.20 10*3/uL 0.06-0.53 BASO x10^3 (test code = 704-7) 0.04 10*3/uL 0.01-0.09 Lab Interpretation (test code = 66343-2) Abnormal [facility] WITH [id number] 07:49:44* Test Item Value Reference Range Interpretation Comme nts WBC (test code = 6690-2) See_Comment [Automated messa ge] The system which generated this result transmitted reference range: 4.20 - 10.70 10*3/?L. The reference range was not used to interpret this result as normal/abnormal. RBC (test code = 789-8) See_Comment L [Automated messa ge] The system which generated this result transmitted reference range: 4.26 - 5.52 10*6/?L. The reference range was not used to interpret this result as normal/abnormal. HGB (test code = 718-7) 12.0 g/dL 12.2-16.4 L HCT (test code = 4544-3) 36.0 % 38.4-49.3 L MCV (test code = 787-2) 85.5 fL 81.7-95.6 MCH (test code = 785-6) 28.5 pg 26.1-32.7 MCHC (test code = 786-4) 33.3 g/dL 31.2-35.0 RDW-SD (test code = 90077-9) 42.8 fL 38.5-51.6 RDW-CV (test code = 788-0) 13.7 % 12.1-15.4 PLT (test code = 777-3) See_Comment [Automated messa ge] The system which generated this result transmitted reference range: 150 - 328 10*3/?L. The reference range was not used to interpret this result as normal/abnormal. MPV (test code = 39550-1) 8.8 fL 9.8-13.0 L NRBC/100 WBC (test code = 3552614137) See_Comment [Automated me ssage] The system which generated this result transmitted reference range: 0.0 - 10.0 /100 WBCs. The reference range was not used to interpret this result as normal/abnormal. NRBC x10^3 (test code = 3631535692) See_Comment [Automated messa ge] The system which generated this result transmitted reference range: 10*3/?L. The reference range was not used to interpret this result as normal/abnormal. GRAN MAT (NEUT) % (test code = 770-8) 61.0 % IMM GRAN % (test code = 8068884677) 0.30 % LYMPH % (test code = 736-9) 28.1 % MONO % (test code = 5905-5) 7.6 % EOS % (test code = 713-8) 2.5 % BASO % (test code = 706-2) 0.5 % GRAN MAT x10^3(ANC) (test code = 9088932608) 4.83 10*3/uL 1.99-6.95 IMM GRAN x10^3 (test code = 2608341360) 0.00-0.06 LYMPH x10^3 (test code = 731-0) 2.22 10*3/uL 1.09-3.23 MONO x10^3 (test code = 742-7) 0.60 10*3/uL 0.36-1.02 EOS x10^3 (test code = 711-2) 0.20 10*3/uL 0.06-0.53 BASO x10^3 (test code = 704-7) 0.04 10*3/uL 0.01-0.09 Lab Interpretation (test code = 20428-0) Abnormal [facility] WITH [id number] 07:49:44* Test Item Value Reference Range Interpretation Comme nts WBC (test code = 6690-2) See_Comment [Automated messa ge] The system which generated this result transmitted reference range: 4.20 - 10.70 10*3/?L. The reference range was not used to interpret this result as normal/abnormal. RBC (test code = 789-8) See_Comment L [Automated messa ge] The system which generated this result transmitted reference range: 4.26 - 5.52 10*6/?L. The reference range was not used to interpret this result as normal/abnormal. HGB (test code = 718-7) 12.0 g/dL 12.2-16.4 L HCT (test code = 4544-3) 36.0 % 38.4-49.3 L MCV (test code = 787-2) 85.5 fL 81.7-95.6 MCH (test code = 785-6) 28.5 pg 26.1-32.7 MCHC (test code = 786-4) 33.3 g/dL 31.2-35.0 RDW-SD (test code = 71511-0) 42.8 fL 38.5-51.6 RDW-CV (test code = 788-0) 13.7 % 12.1-15.4 PLT (test code = 777-3) See_Comment [Automated messa ge] The system which generated this result transmitted reference range: 150 - 328 10*3/?L. The reference range was not used to interpret this result as normal/abnormal. MPV (test code = 96654-4) 8.8 fL 9.8-13.0 L NRBC/100 WBC (test code = 7622747758) See_Comment [Automated [employer] ssage] The system which generated this result transmitted reference range: 0.0 - 10.0 /100 WBCs. The reference range was not used to interpret this result as normal/abnormal. NRBC x10^3 (test code = 5279748992) See_Comment [Automated [employer]] The system which generated this result transmitted reference range: 10*3/?L. The reference range was not used to interpret this result as normal/abnormal. GRAN MAT (NEUT) % (test code = 770-8) 61.0 % IMM GRAN % (test code = 2493071800) 0.30 % LYMPH % (test code = 736-9) 28.1 % MONO % (test code = 5905-5) 7.6 % EOS % (test code = 713-8) 2.5 % BASO % (test code = 706-2) 0.5 % GRAN MAT x10^3(ANC) (test code = 6816584047) 4.83 10*3/uL 1.99-6.95 IMM GRAN x10^3 (test code = 4060558648) 0.00-0.06 LYMPH x10^3 (test code = 731-0) 2.22 10*3/uL 1.09-3.23 MONO x10^3 (test code = 742-7) 0.60 10*3/uL 0.36-1.02 EOS x10^3 (test code = 711-2) 0.20 10*3/uL 0.06-0.53 BASO x10^3 (test code = 704-7) 0.04 10*3/uL 0.01-0.09 Lab Interpretation (test code = 26842-8) [facility] [id number] 21:10:48XR LUMBAR SPINE 3 VW HISTORY: Male 60 years low back pain over 3 months duration COMPARISON: None FINDINGS: The vertebral bodies are normal in height and in normal alignment. Diffuse mild degenerative changes are present. No acute osseous abnormality.[facility], Radiant Results Inft User - 02/06/2021 4:11 PM CDTXR LUMBAR SPINE 3 VWHISTORY: Male 60 years low back pain over 3 months duration COMPARISON: NoneFINDINGS:The vertebral bodies are normal in height and in normal alignment.Diffuse mild degenerative changes are present.No acute osseous abnormality.[facility] CenterCHEM [id number] 09:45:00* Test Item Value Reference Range Interpretation Comme nts Magnesium Lvl (test code = M agnesium Lvl) 2.1 1.8-2.4 [facility]zxasbaRIKTEPPSOHYE1122-10-75 09:45:00* Test Item Value Reference Range Interpretation Comme nts AGAP (test code = AGAP) 8.9 10.0-20.0 [facility]EbxpfioAVVLDLFSEL3511-57-87 09:45:00* Test Item Value Reference Range Interpretation Comme nts MPV (test code = MPV) 6.9 7.4-10.4 [facility]cosPARATHYROID [id number] 09:45:00* Test Item Value Reference Range Interpretation Comme nts Ca Ion WB (test code = Ca Ion WB) 1.13 1.05-1.25 [facility]cosQcviyeeKEDNYCSAYR5076-02-41 07:57:00* Test Item Value Reference Range Interpretation Comme nts Hgb (test code = Hgb) 13.2 14.0-18.0 [facility] NorthwestUqlvjdwXWAXIWXPRQLS0095-55-41 07:57:00* Test Item Value Reference Range Interpretation Comme nts AGAP (test code = AGAP) 9.3 10.0-20.0 [facility]cosCHEM [id number] 00:35:00* Test Item Value Reference Range Interpretation Comme nts Albumin Lvl (test code = Albumin Lvl) 3.9 3.5-5.0 [facility]cosExlbpoaZLADLOWXNU9531-56-43 00:35:00* Test Item Value Reference Range Interpretation Comme nts Monocytes # (test code = Monocytes #) 0.7 <=0.8 [facility] BANK [id number] 21:44:00* Test Item Value Reference Range Interpretation Comme nts Antibody Scrn (test code = Antibody Scrn) Negative (04/11/19 4:44 PM) [facility] MarcosEpzhufyTCJPNIWUTD1590-23-87 21:30:00* Test Item Value Reference Range Interpretation Comme nts PTT (test code = PTT) 30.7 s 22.9-35.8 [facility] MarcosXaquxlgPEUPVEXOBT8717-03-53 21:30:00* Test Item Value Reference Range Interpretation Comme nts CDC HIV 4th GEN (test code = CDC HIV 4th GEN) Negative *NA*(04/11/19 4:30 PM) [facility]
[2024-11-03] MEDS ORDERED: EPINEPHRINE 1 MG/ML VIAL ONE (16:02)
[2024-11-03] MEDS ORDERED: METHYLPREDNISOLONE 125 MG INJ ONE (16:02)
[2024-11-03] MEDS ORDERED: DIPHENHYDRAMINE 50 MG/ML VIAL ONE (16:02)
[2024-11-03] MEDS ORDERED: EPINEPHRINE INH 0.5 ML VIAL IH ONE (16:10)
[2024-11-03 16:38] LABS: Absolute Eosinophils 0.1 K/uL (0-0.5); Absolute Lymphocytes (CBC) 3.3 K/uL (0.7-4.9); Absolute Monocytes 0.2 K/uL (0.1-1.3); Absolute Neutrophil 3.9 K/uL (1.8-8.0); Basophils % 0.2 % (0-1.3); Eosinophils % 1.3 % (0-4.4); Hematocrit 31.9 % (39.6-49.0); Hemoglobin 10.6 g/dL (13.6-17.9); Lymphocytes % 43.4 % (15.3-44.8); MCH 29.7 pg (27.0-35.0); MCHC 33.1 g/dL (32.0-36.0); MCV 89.8 fL (80-100); MPV 6.3 fL (7.6-11.3); Neutrophils % 52.1 % (41.7-73.7); Nucleated Red Blood Cells % 0.1 % (0-0); Platelets 857 thou/uL (152-406); RBC Red Blood Cell Count 3.55 M/uL (4.33-5.43); Red Cell Distribution Width 16.6 % (12.1-15.2)
[2024-11-03 17:02] LABS: Anion Gap 10.3 mEq/L (5.0-15.0); Potassium 3.3 mEq/L (3.5-5.1)
[2024-11-03 17:05] LABS: Troponin High Sensitivity 307.5 pg/mL (<58.9)
--- NOTE | 2024-11-03 17:20 | RAD REPORT ---
Procedure: Chest Single View HISTORY: Cough COMPARISON: none FINDINGS: The lungs appear clear of acute infiltrate. Small left pleural effusion. The heart is mildly enlarged. Post surgical changes involve the chest.
--- NOTE | 2024-11-03 17:22 | EDPHYS ---
Physician Documentation [facility] Name: Adin Mast Age: 63 yrs Sex: Male : 1960 Arrival Date: 11/03/2024 Time: 15:50 Bed 14 Private MD: ED Physician Rashard Rivers HPI: 11/03 15:55 This 63 yrs old Male presents to ER via Unassigned with complaints of cough, ec2 possible aspiration. 15:55 Patient arrives today for cough and choking episode. Was eating a bologna sandwich ec2 subsequently started choking and feeling short of breath. EMS reports that given him albuterol as well as Benadryl with some improvement in symptoms. Patient has significant itching as well. Reports coughing a lot of phlegm. Patient has 1/2 pack/day smoker.. Historical: - Allergies: 16:16 No Known Allergies; kc6 - PMHx: 16:16 Hypertension; Myocardial infarction; kc6 - PSHx: 16:16 Coronary artery bypass graft; kc6 - Immunization history:: Adult Immunizations up to date. - Infectious Disease History:: Denies. - Social history:: Smoking status: Patient reports the use of cigarette tobacco products, smokes one pack cigarettes per day. ROS: 15:55 Constitutional: as per hpi ec2 Exam: 15:55 Constitutional: GEN: NAD Head: atraumatic Eyes: EOMI Ears: External ears are normal. ec2 Neck, soft, supple, nontender, no erythema, no warmth appreciated. CV: regular rate LUNGS: no respiratory distress ABD: non-distended SKIN: no evidence of rashes MSK: no evidence of trauma Vital Signs: 16:14 BP 139 / 71; Pulse 91; Resp 25 S; Pulse Ox 77% on R/A; Weight 72.57 kg; Height 5 ft. 9 kc6 in. ; 16:39 BP 169 / 82; Pulse 83; Pulse Ox 100% ; ec2 18:46 BP 153 / 80; Pulse 85; Resp 19 S; Pulse Ox 98% on 2 lpm NC; kc6 19:00 BP 152 / 84; Pulse 80; Resp 18; Pulse Ox 95% on R/A; kj2 22:06 BP 139 / 88; Pulse 84; Resp 18; Pulse Ox 98% on R/A; kj2 22:06 Temp 98.6; kj2 16:14 Body Mass Index 23.63 (72.57 kg, 175.26 cm) kc6 MDM: 15:54 Medical Screening Exam initiated ec2 15:55 Data reviewed: vital signs, nurses notes. ED course: Patient arrives today for ec2 evaluation of possible aspiration episode along with frequent coughing. Examination yields pulmonary and neck findings as above. Will obtain lab work, EKG, chest x-ray. Will give the patient Solu-Medrol.. 16:08 ED course: Patient noted to have significant itching, has erythema to the bilateral ec2 inner thighs, possible allergic reaction as well, will give the patient epinephrine, Benadryl IV as well as Solu-Medrol. Patient also with history of CHF so we will currently hold given the patient crystalloid.. 16:32 ED course: EKG independently reviewed and interpreted by me, shows normal sinus rhythm, ec2 rate of 92, no acute ST segment elevations, intervals are nonactionable.. 16:57 ED course: Reassessed patient with marked improvement in symptoms.. ec2 17:12 ED course: Metabolic profile shows hypokalemia at 3.3. CBC shows anemia at 10.6. ec2 Troponin elevated at 307, BNP elevated at 4800. Will give the patient full dose aspirin, start the patient on a heparin drip as well.. 17:21 ED course: Will give the patient IV Lasix as well given volume overload.. ec2 17:28 ED course: Chest x-ray shows mild cardiomegaly, small left-sided pleural effusion. ec2 Patient with recent bypass at [facility], will transfer to [facility] for continuity of care.. 17:58 ED course: I discussed the case with ER physician at [facility] agrees except the ec2 patient for transfer.. 18:10 ED course: Patient reports that he does not want to be transferred, I discussed with ec2 him again that it is important that he be admitted for his cardiac process with his recent CABG and his volume overload status and his hypoxia. I discussed this with him and his and daughter, and daughter were agreeable. 11/03 15:54 Order name: Basic Metabolic Panel; Complete Time: 17:11 ec2 11/03 15:54 Order name: CBC with Diff; Complete Time: 17:11 ec2 11/03 15:54 Order name: NT PRO-BNP; Complete Time: 17:11 ec2 11/03 15:54 Order name: Troponin HS; Complete Time: 17:11 ec2 11/03 15:54 Order name: Influenza Screen (a \T\ B); Complete Time: 17:54 ec2 11/03 15:54 Order name: SARS RAPID; Complete Time: 17:54 ec2 11/03 17:35 Order name: Ptt, Activated; Complete Time: 18:10 6 11/03 15:54 Order name: XRAY Chest (1 view); Complete Time: 17:22 ec2 11/03 15:54 Order name: EKG; Complete Time: 15:54 ec2 11/03 15:54 Order name: Cardiac monitoring; Complete Time: 15:58 ec2 11/03 15:54 Order name: EKG - Nurse/Tech; Complete Time: 16:27 ec2 11/03 15:54 Order name: IV Saline Lock; Complete Time: 16:13 ec2 11/03 15:54 Order name: Labs collected and sent; Complete Time: 16:27 ec2 11/03 15:54 Order name: O2 Per Protocol; Complete Time: 15:58 ec2 11/03 15:54 Order name: O2 Sat Monitoring; Complete Time: 15:58 ec2 Administered Medications: 16:08 CANCELLED (Physician Discretion): ns 0.9% 1000 ml IV at 1000 ml once; to be given as a ec2 bolus over 60 minutes 16:13 Drug: MethylPrednisoLONE IVP 125 mg IVP once Route: IVP; Site: right forearm; kc6 17:13 Follow up: Response: No adverse reaction kc6 16:13 Drug: EPINEPHrine IM 1:1,000 0.5 mg IM once Route: IM; Site: left deltoid; kc6 17:13 Follow up: Response: No adverse reaction kc6 16:13 Drug: diphenhydrAMINE IVP 25 mg IVP once Route: IVP; Site: right forearm; kc6 17:13 Follow up: Response: No adverse reaction kc6 16:27 Drug: Racepinephrine Inhalation 0.5 ml Inhalation once Route: Inhalation; kc6 18:39 Follow up: Response: No adverse reaction kc6 17:56 Drug: Heparin ([place] Drip) 12 units/kg/hr - ([place] [address] units, D5W IV 500 ml) IV at kc6 calculated rate Per protocol; Max initial rate 1000 units/hr {Co-Signature: tm6 (Garret Rooney RN).} Route: IV; Rate: calculated rate; Site: right forearm; 22:05 Follow up: IV Status: Infusion continued upon transfer kj2 17:56 Drug: Aspirin PO Chewable Tablet 324 mg PO once; 81 mg tablets x 4 Route: PO; kc6 18:39 Follow up: Response: No adverse reaction kc6 17:56 Drug: Furosemide IVP 40 mg IVP once; give over 2 minutes Route: IVP; Site: right kc6 forearm; 18:39 Follow up: Response: No adverse reaction kc6 Disposition Summary: 11/03/24 17:22 Transfer Ordered Notes: Transfer Location: Other Acute Care Facility ec2 Reason: Higher level of care ec2 Condition: Stable ec2 Problem: an acute exacerbation ec2 Symptoms: have improved ec2 Accepting Physician: transferring doc(11/03/24 22:16) kj2 Diagnosis - CHF Exacerbation, NSTEMI ec2 - CHF Exacerbation, NSTEMI, Pleural Effusion ec2 Forms: - Medication Reconciliation Form ec2 - SBAR form ec2 Critical care time excluding procedures: 17:21 Critical care time: Bedside Care: 30 minutes, Consultation: 5 minutes. Total time: 35 ec2 minutes Signatures: Dispatcher [employer] Anu Plata RN RN kc6 Rashard Rivers MD MD ec2 Sheri Mcknight RN RN kj2 Garret Rooney RN tm6 Corrections: (The following items were deleted from the chart) 16:08 16:01 NS 0.9% IV 1000 ml IV at 1000 ml once; to be given as a bolus over 60 minutes ec2 ordered. ec2 17:29 17:22 transferring doc ec2 ec2 17:29 17:29 transferring doc ec2 ec2 22:16 17:29 transferring doc ec2 kj2
--- NOTE | 2024-11-03 17:22 | ER ---
Nurse's Notes [facility] Name: Adin Mast Age: 63 yrs Sex: Male : 1960 Arrival Date: 11/03/2024 Time: 15:50 Bed 14 Private MD: Diagnosis: CHF Exacerbation, NSTEMI, Pleural Effusion Presentation: 11/03 16:14 Chief complaint: EMS states: they were toned out for SOB, cough, possibly choking. upon [facility] EMS arrival pt reports SOB and is coughing up phlegm. denies eating or trying anything new. Coronavirus screen: At this time, the client does not indicate any symptoms associated with coronavirus-19. Ebola Screen: No symptoms or risks identified at this time. Onset: The symptoms/episode began/occurred acutely. Anaphylaxis evaluation, the patient reports or I have noted the following symptoms which indicate a significant risk of anaphylaxis: shortness of breath tachypnea urticaria . The patient has been moved to a treatment room and the charge nurse or attending physician has been notified. Initial Sepsis Screen: Does the patient meet any 2 criteria? RR > 20 per min. HR > 90 bpm. Does the patient have a suspected source of infection? No. Patient's initial sepsis screen is negative. Risk Assessment: Do you want to hurt yourself or someone else? Patient reports no desire to harm self or others. Onset of symptoms was November 03, 2024. Care prior to arrival: Medication(s) given: Albuterol Neb x 1, Atrovent Neb x 1, Benadryl 25mg IM. 16:14 Method Of Arrival: EMS: [place] [id number] 16:14 Acuity: MARÍA 2 6 Triage Assessment: 16:16 General: Appears distressed, uncomfortable, well groomed, well developed, Behavior is kc6 anxious, restless. Pain: Denies pain. EENT: Nares are clear bilaterally Oral mucosa is dry. Throat is clear bilaterally with gag reflex present. Neuro: Level of Consciousness is awake, alert, obeys commands, Oriented to person, place, time, situation, Appropriate for age. Cardiovascular: Reports shortness of breath, Denies chest pain, Heart tones S1 S2 present Capillary refill < 3 seconds Rhythm is regular. Respiratory: Airway is patent Trachea midline Respiratory effort is even, labored, gasping, using tripod position, Respiratory pattern is symmetrical, tachypnea Breath sounds are diminished bilaterally. Onset: The symptoms/episode began/occurred suddenly, the patient has severe shortness of breath. GI: No signs and/or symptoms were reported involving the gastrointestinal system. : No signs and/or symptoms were reported regarding the genitourinary system. Derm: Skin is intact, is healthy with good turgor, Skin is dry, Skin is normal, Skin temperature is warm Rash noted that is itchy, red, urticaria, on right eye, left eye, chest, pelvis, right leg, left leg, nose, mouth and neck. Musculoskeletal: No signs and/or symptoms reported regarding the musculoskeletal system. Circulation, motion, and sensation intact. Range of motion: intact in all extremities. Historical: - Allergies: 16:16 No Known Allergies; kc6 - PMHx: 16:16 Hypertension; Myocardial infarction; kc6 - PSHx: 16:16 Coronary artery bypass graft; kc6 - Immunization history:: Adult Immunizations up to date. - Infectious Disease History:: Denies. - Social history:: Smoking status: Patient reports the use of cigarette tobacco products, smokes one pack cigarettes per day. Screenin:20 [facility] ED Fall Risk Assessment (Adult) History of falling in the last 3 months, kc6 including since admission No falls in past 3 months (0 pts) Confusion or Disorientation No (0 pts) Intoxicated or Sedated No (0 pts) Impaired Gait No (0 pts) Mobility Assist Device Used No (0 pt) Altered Elimination No (0 pt) Score/Fall Risk Level 0 - 2 = Low Risk Oriented to surroundings, Maintained a safe environment, Educated pt \T\ family on fall prevention, incl call for assistance when getting out of bed. Abuse screen: Denies threats or abuse. Denies injuries from another. Nutritional screening: No deficits noted. Tuberculosis screening: No symptoms or risk factors identified. Assessment: 16:16 Reassessment: please see triage. kc6 17:16 Reassessment: Patient appears in no apparent distress at this time. No changes from kc6 previously documented assessment. Patient and/or family updated on plan of care and expected duration. Pain level reassessed. Patient is alert, oriented x 3, equal unlabored respirations, skin warm/dry/pink. Patient states feeling better. Patient states symptoms have improved. 18:16 Reassessment: Patient appears in no apparent distress at this time. No changes from kc6 previously documented assessment. Patient and/or family updated on plan of care and expected duration. Pain level reassessed. Patient is alert, oriented x 3, equal unlabored respirations, skin warm/dry/pink. 18:51 Reassessment: attempted to call report to [facility] ED. on hold for 10min. kc6 19:00 Reassessment: Patient appears in no apparent distress at this time. Patient and/or kj2 family updated on plan of care and expected duration. Pain level reassessed. Patient is alert, oriented x 3, equal unlabored respirations, skin warm/dry/pink. 19:30 Reassessment: ATTEMPTED TO CALL REPORT, PLACED ON HOLD. kj2 20:27 Reassessment: REPORT CALLED, SPOKE WITH OMAR ELLIS AT [facility] ER. kj2 20:28 Reassessment: Patient appears in no apparent distress at this time. Patient and/or kj2 family updated on plan of care and expected duration. Pain level reassessed. Patient is alert, oriented x 3, equal unlabored respirations, skin warm/dry/pink. 21:30 Reassessment: Patient appears in no apparent distress at this time. Patient and/or kj2 family updated on plan of care and expected duration. Pain level reassessed. Patient is alert, oriented x 3, equal unlabored respirations, skin warm/dry/pink. 22:05 Reassessment: Patient appears in no apparent distress at this time. Patient and/or kj2 family updated on plan of care and expected duration. Pain level reassessed. Patient is alert, oriented x 3, equal unlabored respirations, skin warm/dry/pink. EMS ARRIVED TO TRANSPORT PATIENT TO [facility] ED. Respiratory: Airway is patent. Vital Signs: 16:14 BP 139 / 71; Pulse 91; Resp 25 S; Pulse Ox 77% on R/A; Weight 72.57 kg; Height 5 ft. 9 kc6 in. ; 16:39 BP 169 / 82; Pulse 83; Pulse Ox 100% ; ec2 18:46 BP 153 / 80; Pulse 85; Resp 19 S; Pulse Ox 98% on 2 lpm NC; kc6 19:00 BP 152 / 84; Pulse 80; Resp 18; Pulse Ox 95% on R/A; kj2 22:06 BP 139 / 88; Pulse 84; Resp 18; Pulse Ox 98% on R/A; kj2 22:06 Temp 98.6; kj2 16:14 Body Mass Index 23.63 (72.57 kg, 175.26 cm) kc6 ED Course: 15:53 Patient arrived in ED. ec2 15:54 Rashard Rivers MD is Attending Physician. ec2 15:58 Anu Johnson, OMAR is Primary Nurse. kc6 16:16 Triage completed. kc6 16:16 Arm band placed on. kc6 16:19 Inserted saline lock: 20 gauge in right forearm, using aseptic technique. Blood kc6 collected. Flushed with 10 mL NS. Oxygen administration via non-rebreather mask \T\ 15L/min. 16:20 Patient has correct armband on for positive identification. Bed in low position. Call kc6 light in reach. Side rails up X2. concession attendant on. Pulse ox on. NIBP on. Door closed. Noise minimized. Lights dimmed. Pillow given. 16:27 XRAY Chest (1 view) In Process Unspecified. EDMS 17:30 initiated a transfer with Elisa from the [facility] ED transfer Center. eb 17:[address] Mendez the ED doc call center receptionist for [facility] with Dr. Rivers for patient eb transfer consultation. 18:00 administrative approval given by Dasia Ny Rn/ patient has been accepted to [facility] ED/ Dr. Alexis Montes has accepted the patient in transfer/ report to be called to [phone]. 21:03 Provided Education on: NEED TO TRANSFER. kj2 21:03 No provider procedures requiring assistance completed. kj2 22:08 Patient transferred, IV remains in place. kj2 Administered Medications: 16:08 CANCELLED (Physician Discretion): ns 0.9% 1000 ml IV at 1000 ml once; to be given as a ec2 bolus over 60 minutes 16:13 Drug: MethylPrednisoLONE IVP 125 mg IVP once Route: IVP; Site: right forearm; kc6 17:13 Follow up: Response: No adverse reaction kc6 16:13 Drug: EPINEPHrine IM 1:1,000 0.5 mg IM once Route: IM; Site: left deltoid; kc6 17:13 Follow up: Response: No adverse reaction kc6 16:13 Drug: diphenhydrAMINE IVP 25 mg IVP once Route: IVP; Site: right forearm; kc6 17:13 Follow up: Response: No adverse reaction kc6 16:27 Drug: Racepinephrine Inhalation 0.5 ml Inhalation once Route: Inhalation; kc6 18:39 Follow up: Response: No adverse reaction kc6 17:56 Drug: Heparin ([place] Drip) 12 units/kg/[place] - ([place] [address] units, D5W IV 500 ml) IV at 6 calculated rate Per protocol; Max initial rate 1000 units/hr {Co-Signature: tm6 (Garret Rooney RN).} Route: IV; Rate: calculated rate; Site: right forearm; 22:05 Follow up: IV Status: Infusion continued upon transfer kj2 17:56 Drug: Aspirin PO Chewable Tablet 324 mg PO once; 81 mg tablets x 4 Route: PO; kc6 18:39 Follow up: Response: No adverse reaction kc6 17:56 Drug: Furosemide IVP 40 mg IVP once; give over 2 minutes Route: IVP; Site: right [facility] forearm; 18:39 Follow up: Response: No adverse reaction [facility] Medication: 21:03 VIS not applicable for this client. kj2 Outcome: 17:22 ER care complete, transfer ordered by . ec2 22:08 Transferred by ground EMS kj2 22:08 Condition: stable 22:08 Instructed on the need for transfer, 22:16 Patient left the ED. kj2 Signatures: Dispatcher [employer] Keisha Pool Kaitlyn, RN RN kc6 Rashard Rivers MD MD ec2 Sheri Mcknight RN RN kj2 Garret Rooney RN tm6
[2024-11-03] MEDS ORDERED: HEPARIN/D5W 25,000 UNIT/500 ML BAG IV ONE (17:34)
[2024-11-03] MEDS ORDERED: ASPIRIN 81 MG CHEWABLE TABLET ONE (17:34)
[2024-11-03] MEDS ORDERED: FUROSEMIDE 40 MG/4 ML VIAL ONE (17:34)
[2024-11-03 17:53] LABS: SARS-CoV-2 Antigen CONTROL BLUE LINE VIS/BG OK; SARS-CoV-2 Antigen Rapid Res Negative (Negative)
[2024-11-03 22:43] VITALS: BP 139/88; TEMP 98.6; O2SAT 98
--- NOTE | 2024-11-06 13:43 | EKG ---
Test Date: 2024-11-03 Test Time: 16:23:14 Blindstitch Machine Operator: JORDI MEASUREMENT RESULTS: Intervals: Rate: 92 SD: 134 QRSD: 128 QT: 364 QTc: 450 [place]: P: 85 SD: 134 QRS: 70 T: 200 INTERPRETIVE STATEMENTS: Normal sinus rhythm Nonspecific intraventricular block Inferior infarct, age undetermined T wave abnormality, consider lateral ischemia Abnormal ECG Compared to ECG 01/06/2005 07:33:00 Myocardial infarct finding now present Possible ischemia now present Left ventricular hypertrophy no longer present T-wave abnormality still present Electronically Signed On 11-06-24 13:37:46 HOUSE SHORER by Camacho Hein
== END 2024-11-03 22:16 ==
LOC: ER 15:50
DX: I11.0 Hypertensive heart disease with heart failure (principal); I50.9 Heart failure, unspecified; I21.4 Non-ST elevation (NSTEMI) myocardial infarction; I25.2 Old myocardial infarction; F17.210 Nicotine dependence, cigarettes, uncomplicated; Z95.5 Presence of coronary angioplasty implant and graft; Z11.52 Encounter for screening for COVID-19
CPT/HCPCS: 96365; 93005; 85025; 80048; 36415; 85730; 84484; 83880; 87804 ×2; 71045; 96375; 96372; 99285; 96366; 87811; J1200; J1940; J0171; J2919

== ENCOUNTER 2025-06-17 11:44 | Emergency (ER) | payer OTHER ==
[2025-06-17] MEDS ORDERED: SUCCINYLCHOLINE 20 MG/ML (10 ML) IV ONE (11:45)
[2025-06-17] MEDS ORDERED: ETOMIDATE 20 MG/10 ML VIAL IV ONE (11:45)
--- OUTSIDE RECORDS SUMMARY | 2025-06-17 12:04 | XMS REPORT | Continuity of Care Document ---
Author Name Unknown Address [address] [facility] [place] [address] [facility] Address [address] 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 Name Role Phone Alfred VASQUEZBarbieAshley Primary Care Physician Shyla Zepeda Attending Clinician Unavailable BERNARDINO OSULLIVAN Attending Clinician Unavailable WOODY MARIN Attending Clinician Unavailable CATALINA TAY Attending Clinician UnavailJAMIA Hightower Attending Clinician Unavailable CARMELA IZQUIERDO Attending Clinician Unavailab CK Conti Attending Clinician Unavailable MELISSA DOMINGUEZ Attending Clinician Unavail able Genoveva Attending Clinician Unavailable LAB39 Attending Clinician Unavailable 39, HOLTER Attending Clinician Unavailable Jamil Manriquez MD Attending Clinician [phone] Doctor Unassigned, [place] Attending Clinician U david Ray HEALY, Jena Attending Clinician [phone] ISIAH KELLY Attending Clinician Unavailable ISIAH KELLY Attending Clinician Unavailable Amanda HARGROVE, Regine Attending Clinician [phone] Ruddy Kim MD Attending Clinician [phone] Broderick HARGROVE, Marli Attending Clinician [phone] Randy HARGROVE, Eugenio Attending Clinician [phone] Dewayne RN, Emily Aden Attending Clinician [phone] TEQWZACHARIAH EDDY Attending Clinician Unavailable Anat Rodriguez MD, Becky Attending Clinician [phone] Emmett Keys MD Attending Clinician [phone] Zachariah Neely DO Attending Clinician [phone] Elijah Lawson MD Attending Clinician [phone] JAMIL MANRIQUEZ Attending Clinician Unavailable JEANA DEAN Attending Clinician Unavailable Mitch Hull MD Attending Clinician + [phone] ELIGIO MANCIA Attending Clinician Unavailable Shyla Zepeda Admitting Clinician Unavailable CATALINA TAY Admitting Clinician UnavailCK Martinez Admitting Clinician Unavailable Genoveva Admitting Clinician Unavailable MARLI NEGRETE Admitting Clinician Unavailable EMMETT KEYS Admitting Clinician Unavailable Emmett Keys MD Admitting Clinician [phone] ELIGIO MANCIA Admitting Clinician Unavailable Payers Payer Name Policy Type Policy Number Effective Date Expirati on Date Source [facility] [employer] 9 [id number] 2024 00:00:00 [facility] [id number] 1999 00:00:00 1999 00:00:00 DIANDRA [id number] ELI DEL ROSARIO: O TENSILE TESTER 94 ON STAND 9 [id number] 2022 00:00:00 Problems Condition Name Condition Details Condition Category Status Onset Date Resolution Date Last Treatment Date Treating Clinician Comments Source Chronic low back pain Chronic Low Back Pain Problem Active 03-31 00:00: 00 [facility] Mixed hyperlipid emia Mixed Hyperlipid emia Problem Active 03-31 00:00: 00 [facility] Essential hypertensi on Essential Hypertensi on Problem Active 03-31 00:00: 00 [facility] Benign essential hypertensi on Benign Essential Hypertensi on Problem Active 03-31 00:00: 00 [facility] Coronary atheroscle rosis Coronary Atheroscle rosis Problem Active 03-31 00:00: 00 [facility] Pulmonary emphysema Pulmonary Emphysema Problem Active 03-31 00:00: 00 [facility] Tobacco abuse Tobacco abuse Disease Active 06-21 00:00: 00 Belkis Valdez - Externa l HTN (hypertens ion) HTN (hypertens ion) Disease Active 06-21 00:00: 00 Belkis Valdez - Externa l Hyperlipid emia Hyperlipid emia Disease Active 06-21 00:00: 00 Belkis Valdez - Externa l CAD (coronary artery disease) CAD (coronary artery disease) Disease Active 06-21 00:00: 00 Belkis Valdez - Externa l History of CVA (cerebrova scular accident) History of CVA (cerebrova scular accident) Disease Active 06-21 00:00: 00 Belkis Valdez - Externa l HLD (hyperlipi demia) HLD (hyperlipi demia) Disease Active 2021-11 00:00: 00 [facility] COPD (chronic obstructiv e pulmonary disease) COPD (chronic obstructiv e pulmonary disease) Disease Recurre nce 2021-11 00:00: 00 [facility] Pneumonia Pneumonia Disease Active 2021-11 00:00: 00 [facility] STEMI (ST elevation myocardial infarction ) STEMI (ST elevation myocardial infarction ) Disease Active 2021-11 00:00: 00 [facility] Essential hypertensi on Essential hypertensi on Disease Active 03-22 00:00: 00 [facility] Chest pain Chest pain Disease Active 04-10 00:00: 00 [facility] Chronic midline low back pain without sciatica Chronic midline low back pain without sciatica Disease Active 04-10 00:00: 00 [facility] Hypertensi ve urgency Hypertensi ve urgency Disease Active 04-10 00:00: 00 [facility] Cigarette smoker Cigarette smoker Disease Active 04-10 00:00: 00 [facility] Family history of early CAD Family history of early CAD Disease Active 04-10 00:00: 00 [facility] SDH SDH Active 04/11/2019 [facility] Diagnosis Active 04-11 00:00: 00 2019-12-16 14:32:00 Minna Jacinto SDHA SDHA Active 04/11/2019 [facility] Diagnosis Active 04-11 00:00: 00 2019-04-23 20:23:00 Minna Jacinto TRAUM SUBDR HEM W LOC OF UNSP DURATION, TRAUM SUBDR HEM W LOC OF UNSP DURATION, Active [facility] Diagnosis Active 2019-12-16 14:32:00 Minna Jacinto Pain Pain Disease Resolve d 2021-11 00:00: 00 2022-09-30 00:00:00 2022-09-30 22:49:00 [facility] Allergies, Adverse Reactions, Alerts Allergy Name Allergy Type Status Severity Reaction(s) Onset Date Inactive Date Treating Clinician Comments Source No Known Allergie s DA Active U 2023-11 2 00:00: 00 [facility] NO KNOWN ALLERGIE S Drug Class Active [facility] Family History Family Member Diagnosis Comments Start Date Stop Date Sourc e Natural father Coronary Heart Disease [facility] Natural mother Aneurysm [facility] Social History Social Habit Start Date Stop Date Quantity Comments Source Gender identity Brittany Valdez - External History of tobacco use Cigarette Smoker Belkis fernandez - External Sexual orientation [facility] Education 2023-06-21 00:00:00 2023-06-21 00:00:00 13 Belkis Valdez - External Alcohol Comment 2023-06-21 00:00:00 2023-06-21 [...] intake 2022-10-03 00:00:00 2022-10-03 00:00:00 Ex-drinker (finding) [facility] Exposure to SARS-CoV-2 (event) 2022-09-21 00:00:00 2022-10-01 02:29:00 Not sure [facility] History SDOH Food Worry 2022-09-27 00:00:00 2022-09-27 00:00:00 1 [facility] History SDOH Food Scarcity 2022-09-27 00:00:00 2022-09-27 00:00:00 1 [facility] History SDOH Transport Med 2022-09-27 00:00:00 2022-09-27 00:00:00 2 [facility] History SDOH Transport Non-Med 2022-09-27 00:00:00 2022-09-27 00:00:00 2 [facility] History of Social function 2021-02-06 00:00:00 2021-02-06 00:00:00 [facility] Social History 2019-04-12 04:25:51 2019-04-12 04:25:51 [facility] Sex Assigned At 1960 00:00:00 1960 00:00:00 Belkis Baltazarjimrebecca - External Smoking Status Start Date Stop Date Source Heavy Tobacco Smoker [facility] Smokes tobacco daily 2023-06-21 00:00:00 Belkis Baltazarjimrebecca - External Former smoker 2021-03-22 00:00:00 2021-03-22 00:00:00 [facility] Medications Ordered Medication Name Filled [...] 1 dose, On 06/13/24 at 2215, Routine [facility] losartan (COZAAR) tablet 100 mg 06-14 03:15: 00 06-14 03:54 :00 No 100mg 100 mg, Oral, ONCE, 1 dose, On 8/3/24 at 2215, Routine [facility] furosemide (LASIX) tablet 20 mg 06-14 03:15: 00 06-14 03:53 :00 No 20mg 20 mg, Oral, ONCE, 1 dose, On 06/13/24 at 2215, Routine [facility] hydrALAZINE (APRESOLINE ) tablet 50 mg 06-14 03:05: 00 06-14 03:53 :00 No 50mg 50 mg, Oral, ONCE, 1 dose, On 06/13/24 at 2215, Routine [facility] atorvastati n 80 mg tablet 06-13 00:00: 00 Yes [id number] 80mg Take 1 tablet by mouth at bedtime. [facility] aspirin 81 mg chewable tablet 06-13 00:00: 00 Yes [id number] 81mg Take 1 tablet by mouth in the morning. [facility] carvediloL 6.25 mg tablet 06-13 00:00: 00 Yes [id number] 6.25mg Take 1 tablet by mouth in the morning and 1 tablet in the evening. Take with meals. [facility] hydrALAZINE 50 mg tablet 06-13 00:00: 00 Yes [id number] 50mg Take 1 tablet by mouth every 8 (eight) hours. [facility] losartan 100 mg tablet 06-13 00:00: 00 Yes [id number] 100mg Take 1 tablet by mouth every evening. [facility] nicotine 21 mg/24 hr patch 06-13 00:00: 00 Yes [id number] 1{patch } Apply 1 Patch to area(s) every 24 (twenty-fo ur) hours. [facility] hydralazine 50 mg tablet 06-07 00:00: 00 Yes mg Lance Ace Esau carvedilol 6.25 mg tablet 04-03 00:00: 00 Yes mg Lance Cifuentes losartan 100 mg tablet 04-03 00:00: 00 Yes mg Lance Ace Esau Clopidogrel Bisulfate (PLAVIX) 75 MG oral Tablet 06-21 10:10: 31 Yes [id number] 75mg 1 tablet (75 mg total) every 24 hours Belkis simpson Furosemide (LASIX) 20 MG oral Tablet 06-21 10:10: 31 Yes [id number] 20mg 1 tablet (20 mg total) every 24 hours Belkis simpson Fluticasone -Salmeterol (Advair Diskus) 250-50 MCG/ACT inhalation AEROSOL POWDER, BREATH ACTIVATED 06-21 00:00: 00 Yes [id number] 1{puff} Inhale 1 puff into the lungs 2 times daily Belkis simpson Albuterol HFA 108 (90 Base) MCG/ACT IN AERS 06-21 00:00: 00 Yes [id number] 2{puff} Q.25D Inhale 2 puffs into the lungs every 6 hours as needed for wheezing or shortness of breath Belkis simpson nicotine 21 mg/24 hr patch 2021-11 00:00: 00 06-13 00:00 :00 No [id number] 1{patch } Apply 1 Patch to area(s) every 24 (twenty-fo ur) hours. [facility] clopidogreL 75 mg tablet 2021-11 00:00: 00 10-20 05:59 :00 No [id number] 75mg Take 1 tablet by mouth in the morning for 15 days. [facility] zolpidem (AMBIEN) tablet 5 mg 2021-11 04:15: 00 10-03 03:40 :00 No 5mg 5 mg, Oral, ONCE, 1 dose, On Sat10/02/22 at 2215, Routine [facility] melatonin (MELATIN) tablet 3 mg 2021-11 05:15: 00 10-02 05:19 :00 No 3mg 3 mg, Oral, ONCE, 1 dose, On Sat10/01/22 at 2315, Routine [facility] atorvastati n (LIPITOR) tablet 80 mg 2021-11 03:00: 00 Yes 80mg 80 mg, Oral, QHS, First dose on Sat10/01/22 at 2100, Until Discontinu ed, Routine [facility] losartan (COZAAR) tablet 100 mg 2021-11 23:00: 00 Yes 100mg 100 mg, Oral, DAILY AT 1700, First dose on Sat10/01/22 at 1700, Until Discontinu ed, Routine [facility] nicotine (NICODERM) 21 mg/24 hr patch 1 Patch 2021-11 21:45: 00 Yes 1{patch } 1 Patch, Topical, Administer over 24 Hours, Q24H, First dose on Sat10/01/22 at 1545, Until Discontinu ed, Routine [facility] clopidogreL (PLAVIX) 75 mg tablet 75 mg 2021-11 15:00: 00 Yes 75mg 75 mg, Oral, DAILY, First dose on Sat10/01/22 at 0900, Until Discontinu ed, Routine [facility] aspirin chewable tablet 81 mg 2021-11 15:00: 00 Yes 81mg 81 mg, Oral, DAILY, First dose on Sat10/01/22 at 0900, Until Discontinu ed, Routine [facility] carvediloL (COREG) tablet 6.25 mg 2021-11 14:00: 00 Yes 6.25mg 6.25 mg, Oral, BID MEALS, First dose on Sat10/01/22 at 0800, Until Discontinu ed, Routine [facility] NaCl 0.9% (NS) bolus infusion 500 mL 2021-11 05:00: 00 10-01 16:59 :00 No 500mL at 999 mL/hr, 500 mL, IV Infusion, ONCE, 1 dose, On Sat09/30/22 at 2300, STAT [facility] lidocaine 1% (PF) (XYLOCAINE) injection 2021-11 04:41: 16 10-01 04:41 :16 No ONCE INTRA PROCEDURE, Starting on Sat09/30/22 at 2241, Until Sat09/30/22 at 2241, Routine, CV Intraproce dure [facility] midazolam (VERSED) injection 2021-11 04:39: 00 10-01 05:07 :39 No ONCE INTRA PROCEDURE, Starting on 09/30/22 at 2239, Until 09/30/22 at 2307, Routine, CV Intraproce dure [facility] aspirin tablet 325 mg 2021-11 03:45: 00 10-01 15:44 :00 No 325mg 325 mg, Oral, ONCE, 1 dose, On 09/30/22 at 2145, STAT [facility] enoxaparin 80 mg/0.8 mL injection 2021-11 00:00: 00 Yes [id number] 80mg inject 0.8 mL under the skin every 12 (twelve) hours. [facility] clopidogreL 300 mg tablet 2021-11 00:00: 00 10-01 05:59 :00 No [id number] 600mg Take 2 tablets by mouth once now for 1 dose. [facility] prasugreL 10 mg tablet 2021-11 00:00: 00 Yes [id number] 10mg Take 1 tablet by mouth in the morning. [facility] aspirin 81 mg chewable tablet 2021-11 00:00: 00 06-13 00:00 :00 No [id number] 81mg Take 1 tablet by mouth in the morning. [facility] furosemide (LASIX) 20 mg tablet 2021-11 00:00: 00 Yes [id number] 20mg Take 1 tablet by mouth in the morning. [facility] atorvastati n 80 mg tablet 2021-11 00:00: 00 06-13 00:00 :00 No [id number] 80mg Take 1 tablet by mouth at bedtime. [facility] carvediloL 6.25 mg tablet 2021-11 00:00: 00 06-13 00:00 :00 No [id number] 6.25mg Take 1 tablet by mouth in the morning and 1 tablet in the evening. Take with meals. [facility] hydrALAZINE 50 mg tablet 2021-11 00:00: 00 06-13 00:00 :00 No [id number] 50mg Take 1 tablet by mouth every 8 (eight) hours. [facility] losartan 100 mg tablet 2021-11 00:00: 00 06-13 00:00 :00 No [id number] 100mg Take 1 tablet by mouth every evening. [facility] spironolact one 25 mg tablet 2021-11 00:00: 00 09-30 00:00 :00 No [id number] 25mg Take 1 tablet by mouth in the morning and 1 tablet in the evening. [facility] prasugreL (EFFIENT) tablet 10 mg 2021-11 15:00: 00 09-26 23:07 :12 No 10mg 10 mg, Oral, DAILY, First dose on Sat09/25/22 at 0900, Until Discontinu ed, Routine [facility] atorvastati n (LIPITOR) tablet 80 mg 2021-11 03:00: 00 09-26 23:07 :12 No 80mg 80 mg, Oral, QHS, First dose (after last modificati on) on Sat09/24/22 at 2100, Until Discontinu ed, Routine [facility] lactulose (CEPHULAC) solution 15 mL 2021-11 01:54: 12 09-26 23:07 :12 No 15mL 15 mL, Oral, TIDPRN, Starting on Sat09/24/22 at 1954, Until Sat09/26/22 at 1707, Routine, Constipati on [facility] losartan (COZAAR) tablet 100 mg 2021-11 23:00: 00 09-26 23:07 :12 No 100mg 100 mg, Oral, DAILY AT 1700, First dose (after last modificati on) on Sat09/24/22 at 1700, Until Discontinu ed, Routine [facility] simethicone (MYLICON) chewable tablet 125 mg 2021-11 22:15: 00 09-26 23:07 :12 No 125mg 125 mg, Oral, PC+HS, First dose on Sat09/24/22 at 1615, Until Discontinu ed, Routine [facility] iohexoL (OMNIPAQUE 300-50 mL)) injection 2021-11 18:47: 18 09-24 19:09 :25 No ONCE INTRA PROCEDURE, Starting on Sat09/24/22 at 1247, Until Sat09/24/22 at 1309, Routine, CV Intraproce dure [facility] aspirin tablet 2021-11 18:46: 04 09-24 19:09 :25 No ONCE INTRA PROCEDURE, Starting on Sat09/24/22 at 1246, Until Sat09/24/22 at 1309, Routine, CV Intraproce dure [facility] prasugreL (EFFIENT) tablet 2021-11 18:45: 52 09-24 19:09 :25 No ONCE INTRA PROCEDURE, Starting on Sat09/24/22 at 1245, Until Sat09/24/22 at 1309, Routine, CV Intraproce dure [facility] nitroglycer in (TRIDIL) 2 mg in 10 mL D5W for Cardiac Cath 2021-11 17:52: 22 09-24 19:09 :25 No ONCE INTRA PROCEDURE, Starting on Sat09/24/22 at 1152, Until Sat09/24/22 at 1309, Routine, CV Intraproce dure [facility] heparin 1,000 unit/mL injection 2021-11 16:57: 26 09-24 19:09 :25 No ONCE INTRA PROCEDURE, Starting on Sat09/24/22 at 1057, Until Sat09/24/22 at 1309, Routine, CV Intraproce dure [facility] NaCl 0.9% (NS) bolus infusion 2021-11 16:42: 52 09-24 16:42 :52 No CONTINUOUS PRN, Starting on Sat09/24/22 at 1042, Until Discontinu ed, STAT, CV Intraproce dure [facility] midazolam (VERSED) injection 2021-11 16:42: 15 09-24 19:09 :25 No ONCE INTRA PROCEDURE, Starting on Sat09/24/22 at 1042, Until Sat09/24/22 at 1309, Routine, CV Intraproce dure [facility] FENTanyl PF (SUBLIMAZE (PF)) injection 2021-11 16:42: 00 09-24 19:09 :25 No ONCE INTRA PROCEDURE, Starting on Sat09/24/22 at 1042, Until Sat09/24/22 at 1309, Routine, CV Intraproce dure [facility] HYDROcodone -acetaminop hen (NORCO 5) 5-325 mg tablet 1 tablet 2021-11 18:41: 33 09-26 23:07 :12 No 1{tbl} 1 tablet, Oral, Q6HPRN, Starting on 09/22/22 at 1241, Until Sat09/26/22 at 1707, Routine, Pain (scale 7-10) [facility] traMADoL (ULTRAM) tablet 50 mg 2021-11 18:41: 26 09-26 23:07 :12 No 50mg 50 mg, Oral, Q6HPRN, Starting on 09/22/22 at 1241, Until Sat09/26/22 at 1707, Routine, Pain (scale 4-6) [facility] KCL (KLOR-CON M20) tablet 40 mEq 2021-11 13:30: 00 09-22 12:49 :00 No 40meq 40 mEq, Oral, ONCE, 1 dose, On 09/22/22 at 0730, Routine [facility] heparin (porcine) injection 5,000 Units 2021-11 02:00: 00 09-26 23:07 :12 No 5000U 5,000 Units, Subcutaneo us, BID, First dose on Sat09/21/22 at 2000, Until Discontinu ed, Routine [facility] spironolact one (ALDACTONE) tablet 25 mg 2021-11 02:00: 00 09-26 23:07 :12 No 25mg 25 mg, Oral, BID, First dose on Sat09/21/22 at 2000, Until Discontinu ed, Routine [facility] furosemide (LASIX) injection 80 mg 2021-11 20:00: 00 09-23 21:53 :00 No 80mg 80 mg, IV Push, Q8H, First dose (after last modificati on) on Sat09/21/22 at 1400, Until Discontinu ed, Routine [facility] metOLazone (ZAROXOLYN) tablet 5 mg 2021-11 19:45: 00 09-21 20:12 :00 No 5mg 5 mg, Oral, ONCE, 1 dose, On Sat09/21/22 at 1345, Routine [facility] lidocaine 1% (PF) (XYLOCAINE) injection 2021-11 19:22: 00 09-21 19:22 :00 No PRN, Starting on Sat09/21/22 at 1322, Until Sat09/21/22 at 1322, Routine [facility] dextrose 10% (D10W) bolus infusion 125 mL [...] days at room temperatur e. <b r> [facility] glucagon (GLUCAGEN DIAGNOSTIC KIT) injection 1 mg 2021-11 19:06: 58 09-26 23:07 :12 No 1mg 1 mg, Intramuscu lar, PRN, Starting on Sat09/21/22 at 1306, Until Sat09/26/22 at 1707, ENZO, Blood Glucose < or = 70 mg/dL and patient is unable to swallow or has mental changes. [facility] iopamidol (ISOVUE 370-500 mL) injection 80 mL 2021-11 16:45: 00 09-21 15:34 :00 No [id number] 80mL 80 mL, Intravenou s, ONCE, 1 dose, On Sat09/21/22 at 1045, Routine [facility] carvediloL (COREG) tablet 6.25 mg 2021-11 14:00: 00 09-26 23:07 :12 No 6.25mg 6.25 mg, Oral, BID MEALS, First dose on Sat09/21/22 at 0800, Until Discontinu ed, Routine [facility] furosemide (LASIX) injection 40 mg 2021-11 04:00: 00 09-21 18:54 :37 No 40mg 40 mg, IV Push, Q8H, First dose on Sat09/20/22 at 2200, Until Discontinu ed, Routine [facility] ALPRAZolam (XANAX) tablet 0.5 mg 2021-11 16:54: 09 09-26 13:05 :53 No .5mg 0.5 mg, Oral, TIDPRN, Starting on Sat09/20/22 at 1054, Until Sat09/26/22 at 0705, Routine, Anxiety, Insomnia [facility] fluticasone propion-corey meteroL (ADVAIR) 250-50 mcg/dose inhalation disk 1 Puff 2021-11 02:00: 00 09-26 23:07 :12 No 1{puff} 1 Puff, Inhalation , Q12H, First dose on Sat09/19/22 at 2000, Until Discontinu ed, Routine [facility] furosemide (LASIX) injection 40 mg 2021-11 23:00: 00 09-19 23:44 :00 No 40mg 40 mg, Slow IV Push, ONCE, 1 dose, On Sat09/19/22 at 1700, Routine [facility] ALPRAZolam (XANAX) tablet 0.5 mg 2021-11 13:06: 53 09-20 16:54 :32 No .5mg 0.5 mg, Oral, TIDPRN, Starting on Sat09/19/22 at 0706, Until Sat09/20/22 at 1054, Routine, insomnia [facility] ceFEPIme (MAXIPIME) 1,000 mg in NaCl 0.9% [...] y
Durat ion of Therapy: 7 days [facility] metoprolol tartrate (LOPRESSOR) tablet 50 mg 2021-11 02:00: 00 09-21 02:04 :54 No 50mg 50 mg, Oral, BID, First dose (after last modificati on) on Sat09/18/22 at 2000, Until Discontinu ed, Routine [facility] ALPRAZolam (XANAX) tablet 0.5 mg 2021-11 21:47: 59 09-19 00:09 :00 No .5mg 0.5 mg, Oral, TIDPRN, 1 dose, Starting on Sat09/18/22 at 1547, Until Sat09/18/22 at 1809, Routine, insomnia [facility] ceFEPIme (MAXIPIME) 1,000 mg in NaCl 0.9% (NS) 50 mL MINI-BAG 2021-11 21:30: 00 09-18 22:38 :00 No 1000mg 1,000 mg, IV Piggyback, ONCE, 1 dose, On Sat09/18/22 at 1530, Administer over 30 Minutes, 50 mL
Reas on for Anti-Infec tive: Documented Infection< br>Documen alee Infection Site: Respirator y
Durat ion of Therapy: Other (see Comments) [facility] hydrALAZINE (APRESOLINE ) tablet 50 mg 2021-11 20:00: 00 09-26 23:07 :12 No 50mg 50 mg, Oral, Q8H, First dose on Sat09/18/22 at 1400, Until Discontinu ed, Routine [facility] ALPRAZolam (XANAX) tablet 0.5 mg 2021-11 15:39: 13 09-18 15:56 :00 No .5mg 0.5 mg, Oral, TIDPRN, 1 dose, Starting on Sat09/18/22 at 0939, Until Sat09/18/22 at 0956, Routine, insomnia [facility] hydralAZINE (APRESOLINE ) injection 10 mg 2021-11 12:00: 00 09-18 14:43 :00 No 10mg 10 mg, Slow IV Push, ONCE, 1 dose, On Sat09/18/22 at 0600, STAT [facility] hydralAZINE (APRESOLINE ) injection 10 mg 2021-11 10:30: 00 09-18 10:21 :00 No 10mg 10 mg, Slow IV Push, ONCE, 1 dose, On Sat09/18/22 at 0430, STAT [facility] ipratropium -albuteroL (DUONEB) 0.5 mg-3 mg(2.5 mg base)/3 mL nebulizer solution 3 mL 2021-11 09:45: 00 09-18 08:52 :00 No 3mL 3 mL, Inhalation , ONCE, 1 dose, On Sat09/18/22 at 0345, Routine [facility] cloNIDine (CATAPRES) tablet 0.1 mg 2021-11 08:08: 59 09-26 23:07 :12 No .1mg 0.1 mg, Oral, TIDPRN, Starting on Sat09/18/22 at 0208, Until Sat09/26/22 at 1707, Routine, above 160/100 [facility] ALPRAZolam (XANAX) tablet 0.5 mg 2021-11 01:57: 40 09-18 02:27 :00 No .5mg 0.5 mg, Oral, QHSPRN, 1 dose, Starting on Sat09/17/22 at 1957, Until Sat09/17/22 at 2026, Routine, insomnia [facility] iopamidol (ISOVUE 370-500 mL) injection 2021-11 20:01: 38 09-17 20:08 :06 No ONCE INTRA PROCEDURE, Starting on Sat09/17/22 at 1401, Until Sat09/17/22 at 1408, Routine, CV Intraproce dure [facility] verapamiL (ISOPTIN) injection 2021-11 19:38: 35 09-17 20:08 :06 No ONCE INTRA PROCEDURE, Starting on Sat09/17/22 at 1338, Until Sat09/17/22 at 1408, Routine, CV Intraproce dure [facility] nitroglycer in (TRIDIL) 2 mg in 10 mL D5W for Cardiac Cath 2021-11 19:38: 20 09-17 20:08 :06 No ONCE INTRA PROCEDURE, Starting on Sat09/17/22 at 1338, Until Sat09/17/22 at 1408, Routine, CV Intraproce dure [facility] heparin 1,000 unit/mL injection 2021-11 19:37: 55 09-17 20:08 :06 No ONCE INTRA PROCEDURE, Starting on Sat09/17/22 at 1337, Until Sat09/17/22 at 1408, Routine, CV Intraproce dure [facility] NaCl 0.9% (NS) bolus infusion 2021-11 19:35: 06 09-17 19:35 :06 No CONTINUOUS PRN, Starting on Sat09/17/22 at 1335, Until Sat09/17/22 at 1335, STAT, CV Intraproce dure [facility] lidocaine 1% (PF) (XYLOCAINE) injection 2021-11 19:34: 33 09-17 20:08 :06 No ONCE INTRA PROCEDURE, Starting on Sat09/17/22 at 1334, Until Sat09/17/22 at 1408, Routine, CV Intraproce dure [facility] midazolam (VERSED) injection 2021-11 19:32: 37 09-17 20:08 :06 No ONCE INTRA PROCEDURE, Starting on Sat09/17/22 at 1332, Until Sat09/17/22 at 1408, Routine, CV Intraproce dure [facility] FENTanyl PF (SUBLIMAZE (PF)) injection 2021-11 19:32: 26 09-17 20:08 :06 No ONCE INTRA PROCEDURE, Starting on Sat09/17/22 at 1332, Until Sat09/17/22 at 1408, Routine, CV Intraproce dure [facility] ipratropium -albuteroL (DUONEB) 0.5 mg-3 mg(2.5 mg base)/3 mL nebulizer solution 3 mL 2021-11 11:42: 00 09-17 11:51 :00 No 3mL 3 mL, Inhalation , ONCE, 1 dose, On Sat09/17/22 at 0545, Routine [facility] LORazepam (ATIVAN) injection 0.5 mg 2021-11 10:47: 20 09-17 10:57 :00 No .5mg 0.5 mg, Slow IV Push, TIDPRN, 1 dose, Starting on Sat09/17/22 at 0447, Until Sat09/17/22 at 0457, Routine, Anxiety [facility] ALPRAZolam (XANAX) tablet 0.5 mg 2021-11 03:16: 50 09-17 08:20 :00 No .5mg 0.5 mg, Oral, QHSPRN, 1 dose, Starting on Sat09/16/22 at 2116, Until Sat09/17/22 at 0220, Routine, insomnia [facility] nicotine (NICODERM) 14 mg/24 hr patch 1 Patch 2021-11 02:00: 00 09-26 23:07 :12 No 1{patch } 1 Patch, Topical, Administer over 24 Hours, Q24H, First dose on 09/16/22 at 2000, Until Discontinu ed, Routine [facility] clopidogreL (PLAVIX) 75 mg tablet 75 mg 2021-11 15:00: 00 Yes 75mg 75 mg, Oral, DAILY, First dose on 09/16/22 at 0900, Until Discontinu ed, Routine [facility] clopidogreL (PLAVIX) 300 mg tablet 300 mg 2021-11 21:30: 00 09-15 22:41 :00 No 300mg 300 mg, Oral, ONCE, 1 dose, On 09/15/22 at 1630, Routine [facility] aspirin chewable tablet 81 mg 2021-11 14:00: 00 09-26 23:07 :12 No 81mg 81 mg, Oral, DAILY, First dose on 09/15/22 at 0900, Until Discontinu ed, Routine [facility] enoxaparin (LOVENOX) injection 70 mg 2021-11 13:00: 00 09-17 05:13 :10 No 1mg/kg 70 mg (rounded from 73 mg = 1 mg/kg ?73 kg), Subcutaneo us, Q12H, First dose on 09/15/22 at 0800, Until Discontinu ed, Routine [facility] losartan (COZAAR) tablet 50 mg 2021-11 07:15: 00 Yes 50mg 50 mg, Oral, DAILY AT 1700, First dose on 09/15/22 at 0215, Until Discontinu ed, Routine [facility] ipratropium -albuteroL (DUONEB) 0.5 mg-3 mg(2.5 mg base)/3 mL nebulizer solution 3 mL 2021-11 07:15: 00 09-26 23:07 :12 No 3mL 3 mL, Inhalation , QID, First dose (after last modificati on) on 09/15/22 at 0215, Until Discontinu ed, Routine [facility] methylpredn isolone sod succ (SOLU-MEDRO L) injection 60 mg 2021-11 07:15: 00 09-26 23:07 :12 No 60mg 60 mg, Slow IV Push, Q12HA1, First dose on 09/15/22 at 0215, Until Discontinu ed, Routine [facility] azithromyci n (ZITHROMAX) tablet 500 mg 2021-11 07:15: 00 09-17 02:41 :00 No 500mg 500 mg, Oral, QHS, 3 doses, First dose on 09/15/22 at 0215, Last dose on Sat09/16/22 at 2100, ENZO
Re ason for Anti-Infec tive: Empiric Therapy for Suspected Infection< br>Empiric Therapy Site: Respirator y
Durat ion of therapy: 72 hours [facility] atorvastati n (LIPITOR) tablet 40 mg 2021-11 07:00: 00 Yes 40mg 40 mg, Oral, QHS, First dose on 09/15/22 at 0200, Until Discontinu ed, [facility] tart[facility] (LOPRESSOR) tablet 25 mg 2021-11 07:00: 00 Yes 25mg 25 mg, Oral, BID, First dose on 09/15/22 at 0200, Until Discontinu ed, Routine [facility] labetaloL (NORMODYNE) injection 10 mg 2021-11 06:56: 41 09-26 23:07 :12 No 10mg 10 mg, Slow IV Push, Q4HPRN, Starting on Sat09/15/22 at 0156, Until Sat09/26/22 at 1707, Routine, SBP above 150 [facility] ondansetron (ZOFRAN (PF)) injection 4 mg 2021-11 06:55: 45 09-26 23:07 :12 No 4mg 4 mg, Slow IV Push, Q6HPRN, Starting on 09/15/22 at 0155, Until Sat09/26/22 at 1707, Routine, Nausea and Vomiting (N/V) [facility] acetaminoph en (TYLENOL) tablet 650 mg 2021-11 06:55: 37 09-26 23:07 :12 No 650mg 650 mg, Oral, Q6HPRN, Starting on 09/15/22 at 0155, Until Sat09/26/22 at 1707, Routine, Pain (scale 1-3) [facility] valsartan-h ydrochlorot hiazide 320-12.5 mg per tablet 03-22 00:00: 00 09-26 00:00 :00 No [id number] 1{tbl} Take 1 tablet by mouth daily. [facility] tiZANidine 4 mg tablet 03-22 00:00: 00 09-26 00:00 :00 No [id number] 4mg Take 1 tablet by mouth every 6 (six) hours as needed for Pain (scale 4-6). [facility] acetaminoph en-codeine (TYLENOL-CO DEINE #3) 300-30 mg tablet 03-22 00:00: 00 03-30 04:59 :00 No [id number] 1{tbl} Take 1 tablet by mouth every 4 (four) hours as needed for Pain (scale 4-6) for up to 7 days. Indication s: chronic pain [facility] valsartan-h ydrochlorot hiazide 160-12.5 mg per tablet 03-09 00:00: 00 03-22 00:00 :00 No [id number] 1{tbl} Take 1 tablet by mouth daily. [facility] traMADoL 50 mg tablet 03-09 00:00: 00 03-17 04:59 :00 No [id number] 50mg Take 1 tablet by mouth every 6 (six) hours as needed for Pain (scale 4-6) for up to 7 days. Indication s: chronic pain [facility] losartan 100 mg tablet 02-06 00:00: 00 03-09 00:00 :00 No [id number] 100mg Take 1 tablet by mouth daily. [facility] amLODIPine 5 mg tablet 04-12 00:00: 00 02-06 00:00 :00 No [id number] 5mg Take 1 tablet by mouth daily. [facility] losartan 50 mg tablet 04-12 00:00: 00 02-06 00:00 :00 No [id number] 50mg Take 1 tablet by mouth daily. [facility] aspirin 81 mg chewable tablet 04-11 00:00: 02-06 00:00 :00 No [id number] 81mg Take 1 tablet by mouth daily. [facility] Bacitracin 04-13 16:04: 00 Yes 1 appl, TOP, Daily, 0 Refill(s) Minna Jacinto lisinopril 20 mg [...] Notes: (Same as: Mag-Ox 400) Magnesium oxide 532iq=228m g elemental magnesium Dose=____m g magnesium oxide [...] E - [facility] [place] potassium phosphate-s odium phosphate 250 mg-280 mg-160 mg oral powder for reconstitut ion 04-12 06:45: 00 No Notes: (Same as: Phos-NaK) Each 1.5 gm pkt has 250mg phosphorou s. Mix w/2.5oz water and stir. [facility]orge [facility] [place] Magnesium Sulfate 04-12 06:45: 00 No Notes: WASTE: F/P - Sink; E - [facility] Minna Garrisonann potassium phosphate 04-12 06:45: 00 No Notes: [...] infused in a separate lumen from TPN. Minna Jacinto Lisinopril 04-12 05:29: 00 No Notes: (Same as: Prinivil, Zestril) Minna Jacinto Albuterol 0.833 MG/ML / Ipratropium [place] 0.167 MG/ML Inhalant Solution [DuoNeb] 04-12 02:04: 00 No Notes: (Same as: Duoneb) Minna Jacinto Levetiracet am 04-12 02:00: 00 No Notes: (Same as:Keppra) Minna Jacinto Docusate 04-12 02:00: 00 No Notes: (Same as: Colace) (Do Not Crush) Minna Jacinto sennosides, DETENTION 04-12 02:00: 00 No Notes: (Same as: Senokot) Minna calvin [place] Albuterol 0.83 MG/ML Inhalant Solution 04-12 02:00: 00 No Notes: SEE RT DOCUMENTAT ION (Same as: Proventil) Minna Jacinto Acetaminoph en 04-11 23:42: 00 No Notes: Do not exceed 4 gm/day. (Same as: Tylenol) Minna Jacinto Saline Flush 0.9% 04-11 23:42: 00 No Notes: (Same as: BD Posiflush) Minna Jacinto Ondansetron 04-11 23:42: 00 No Notes: (Same as: Zofran) MEDICATION WASTE Product Size: 4 mg Product Wasted: ___ mg Minna Garrisonann Cardene 40 mg in NS 200 mL (Titrate.) IV 40 mg 04-11 22:49: 00 No Notes: Same as: Cardene Concentrat ion: (0.2 mg /1 ml ) Minna Jacinto Morphine 04-11 22:48: 00 No 4 mg, Route: IVP, ONCE, Dosing Weight 68, kg, Priority: STAT, Start date: 04/11/19 17:48:00 CDT, Stop date: 04/11/19 17:48:00 CDT Minna calvin [place] Lidocaine Hydrochlori de 10 MG/ML Injectable Solution 04-11 21:55: 00 Yes Notes: (Same as: Xylocaine) Minna Garrisonann Keppra 04-11 21:21: 00 No 1,000 mg, Route: IV, ONCE, Dosing Weight 68, kg, Start date: 04/11/19 16:21:00 CDT, Stop date: 04/11/19 16:21:00 CDT Mikegeorge calvin Jacinto carvedilol 6.25 mg tablet Take 1 tablet twice a day by oral route. carvedilol 6.25 mg tablet Take 1 tablet twice a day by oral route. No 1 BID carvedilol 6.25 mg tablet Take 1 tablet twice a day by oral route. [facility] clopidogrel 75 mg tablet Take 1 tablet every day by oral route. clopidogrel 75 mg tablet Take 1 tablet every day by oral route. No 1 Q1D clopidogre l 75 mg tablet Take 1 tablet every day by oral route. [facility] hydralazine 50 mg tablet Take 1 tablet twice a day by oral route. hydralazine 50 mg tablet Take 1 tablet twice a day by oral route. No 1 BID hydralazin e 50 mg tablet Take 1 tablet twice a day by oral route. [facility] losartan 100 mg tablet Take 1 tablet every day by oral route. losartan 100 mg tablet Take 1 tablet every day by oral route. No 1 Q1D losartan 100 mg tablet Take 1 tablet every day by oral route. [facility] Immunizations Ordered Immunization Name Filled Immunization Name Date Status Comments Source Pneumococcal 20 Conjugate, PCV20 (Prevnar 20) 2022-09-26 00:00:00 Completed [facility] Influenza Virus Vaccine Quad IM, Preserv and ABX Free 6 MO-64 YRS 2022-09-26 00:00:00 Completed [facility] Pneumococcal 20 Conjugate, PCV20 (Prevnar 20) 2022-09-26 00:00:00 Completed [facility] Influenza Virus Vaccine Quad IM, Preserv and ABX Free 6 MO-64 YRS 2022-09-26 00:00:00 Completed [facility] Pneumococcal 20 Conjugate, PCV20 (Prevnar 20) 2022-09-26 00:00:00 Completed [facility] Influenza Virus Vaccine Quad IM, Preserv and ABX Free 6 MO-64 YRS 2022-09-26 00:00:00 Completed [facility] Pneumococcal 20 Conjugate, PCV20 (Prevnar 20) 2022-09-26 00:00:00 Completed [facility] Influenza Virus Vaccine Quad IM, Preserv and ABX Free 6 MO-64 YRS 2022-09-26 00:00:00 Completed [facility] Pneumococcal 20 Conjugate, PCV20 (Prevnar 20) 2022-09-26 00:00:00 Completed [facility] Influenza Virus Vaccine Quad IM, Preserv and ABX Free 6 MO-64 YRS 2022-09-26 00:00:00 Completed [facility] Pneumococcal 20 Conjugate, PCV20 (Prevnar 20) 2022-09-26 00:00:00 Completed [facility] Influenza Virus Vaccine Quad IM, Preserv and ABX Free 6 MO-64 YRS 2022-09-26 00:00:00 Completed [facility] Pneumococcal 20 Conjugate, PCV20 (Prevnar 20) 2022-09-26 00:00:00 Completed [facility] Influenza Virus Vaccine Quad IM, Preserv and ABX Free 6 MO-64 YRS 2022-09-26 00:00:00 Completed [facility] Pneumococcal 20 Conjugate, PCV20 (Prevnar 20) 2022-09-26 00:00:00 Completed [facility] Influenza Virus Vaccine Quad IM, Preserv and ABX Free 6 MO-64 YRS 2022-09-26 00:00:00 Completed [facility] Pneumococcal 20 Conjugate, PCV20 (Prevnar 20) 2022-09-26 00:00:00 Completed [facility] Influenza Virus Vaccine Quad IM, Preserv and ABX Free 6 MO-64 YRS 2022-09-26 00:00:00 Completed [facility] Pneumococcal 20 Conjugate, PCV20 (Prevnar 20) 2022-09-26 00:00:00 Completed [facility] Influenza Virus Vaccine Quad IM, Preserv and ABX Free 6 MO-64 YRS 2022-09-26 00:00:00 Completed [facility] Pneumococcal 20 Conjugate, PCV20 (Prevnar 20) 2022-09-26 00:00:00 Completed [facility] Influenza Virus Vaccine Quad IM, Preserv and ABX Free 6 MO-64 YRS 2022-09-26 00:00:00 Completed [facility] Pneumococcal 20 Conjugate, PCV20 (Prevnar 20) Unknown Completed [facility] Influenza Virus Vaccine Quad IM, Preserv and ABX Free 6 MO-64 YRS (FLUCELVAX) Unknown Completed [facility] Pneumococcal 20 Conjugate, PCV20 (Prevnar 20) Unknown Completed [facility] Influenza Virus Vaccine Quad IM, Preserv and ABX Free 6 MO-64 YRS (FLUCELVAX) Unknown Completed [facility] Vital Signs Vital Name Observation Time Observation Value Comments S ource Systolic blood pressure 2024-06-14 04:30:00 186 mm[Hg] [facility] Diastolic blood pressure 2024-06-14 04:30:00 99 mm[Hg] [facility] Heart rate 2024-06-14 04:30:00 76 /min [facility] Body temperature 2024-06-14 04:30:00 36.5 Tyesha [facility] Respiratory rate 2024-06-14 04:30:00 16 /min [facility] Oxygen saturation in Arterial blood by Pulse oximetry 2024-06-14 04:30:00 96 /min [facility] Body height 2024-06-14 02:53:00 175.3 cm [facility] Body weight 2024-06-14 02:53:00 74.844 kg [facility] BMI 2024-06-14 02:53:00 24.37 kg/m2 [facility] BP Diastolic 2024-03-31 00:00:00 98 mm[Hg] [facility] BP Systolic 2024-03-31 00:00:00 160 mm[Hg] [facility] Body Weight 2024-03-31 00:00:00 158 [lb_av] [facility] Height 2024-03-31 00:00:00 69 [in_i] [facility] BMI (Body Mass Index) 2024-03-31 00:00:00 23.3 kg/m2 [facility] Systolic blood pressure 2023-06-21 15:04:00 158 mm[Hg] [facility] Diastolic blood pressure 2023-06-21 15:04:00 84 mm[Hg] [facility] - External Heart rate 2023-06-21 15:04:00 72 /min [facility] Body temperature 2023-06-21 15:04:00 36.56 Tyesha [facility] Respiratory rate 2023-06-21 15:04:00 20 /min [facility] Baltazary[facility] - External Body height 2023-06-21 15:04:00 177.8 cm [facility] Body weight 2023-06-21 15:04:00 71.94 kg [facility] BMI 2023-06-21 15:04:00 22.76 kg/m2 [facility] - [facility] Oxygen saturation in Arterial blood by Pulse oximetry 2023-06-21 15:04:00 95 /min [facility] - [facility] Systolic blood pressure 2022-10-03 23:24:00 172 mm[Hg] [facility] Diastolic blood pressure 2022-10-03 23:24:00 104 mm[Hg] [facility] Heart rate 2022-10-03 23:24:00 75 /min [facility] Body temperature 2022-10-03 23:24:00 36.83 Tyesha [facility] Oxygen saturation in Arterial blood by Pulse oximetry 2022-10-03 23:24:00 99 /min [facility] Respiratory rate 2022-10-03 17:46:00 17 /min [facility] Body height 2022-10-02 04:11:00 175.3 cm [facility] Body weight 2022-10-02 04:11:00 78.472 kg [facility] BMI 2022-10-02 04:11:00 25.55 kg/m2 [facility] Systolic blood pressure 2022-10-01 07:15:00 121 mm[Hg] [facility] Diastolic blood pressure 2022-10-01 07:15:00 57 mm[Hg] [facility] Heart rate 2022-10-01 07:15:00 77 /min [facility] Respiratory rate 2022-10-01 07:15:00 26 /min [facility] Oxygen saturation in Arterial blood by Pulse oximetry 2022-10-01 07:15:00 99 /min [facility] Body temperature 2022-10-01 06:00:00 37.22 Tyesha [facility] Body weight 2022-10-01 03:28:00 78.6 kg [facility] BMI 2022-10-01 03:28:00 25.55 kg/m2 [facility] Systolic blood pressure 2022-09-26 18:07:00 138 mm[Hg] [facility] Diastolic blood pressure 2022-09-26 18:07:00 77 mm[Hg] [facility] Heart rate 2022-09-26 18:07:00 68 /min [facility] Body temperature 2022-09-26 18:07:00 36.78 Tyesha [facility] Respiratory rate 2022-09-26 18:07:00 18 /min [facility] Oxygen saturation in Arterial blood by Pulse oximetry 2022-09-26 18:07:00 98 /min [facility] Body weight 2022-09-25 17:00:00 72.122 kg [facility] BMI 2022-09-25 17:00:00 23.48 kg/m2 [facility] Body height 2022-09-24 16:33:05 175.3 cm [facility] Systolic blood pressure 2022-09-24 16:33:05 136 mm[Hg] [facility] Diastolic blood pressure 2022-09-24 16:33:05 74 mm[Hg] [facility] Respiratory rate 2022-09-24 16:33:05 18 /min [facility] Body height 2022-09-24 16:33:05 175.3 cm [facility] Body weight 2022-09-24 16:33:05 72.122 kg [facility] BMI 2022-09-24 16:33:05 23.48 kg/m2 [facility] Oxygen saturation in Arterial blood by Pulse oximetry 2022-09-24 16:33:05 98 /min [facility] Heart rate 2022-09-24 14:20:00 74 /min [facility] Body temperature 2022-09-24 13:16:00 36.56 Tyesha [facility] Heart rate 2022-09-17 21:30:00 74 /min [facility] Respiratory rate 2022-09-17 21:30:00 18 /min [facility] Oxygen saturation in Arterial blood by Pulse oximetry 2022-09-17 21:30:00 96 /min [facility] Systolic blood pressure 2022-09-17 21:15:00 158 mm[Hg] [facility] Diastolic blood pressure 2022-09-17 21:15:00 101 mm[Hg] [facility] Body height 2022-09-17 19:10:04 175.3 cm [facility] Body weight 2022-09-17 19:10:04 72.122 kg [facility] BMI 2022-09-17 19:10:04 23.48 kg/m2 [facility] Body temperature 2022-09-17 17:47:00 36.33 Tyesha [facility] Systolic blood pressure 2021-03-22 14:41:00 160 mm[Hg] per Dr anaya was adjusted [facility] Diastolic blood pressure 2021-03-22 14:41:00 100 mm[Hg] per Dr anaya was adjusted [facility] Systolic blood pressure 2021-03-22 14:28:00 188 mm[Hg] [facility] Diastolic blood pressure 2021-03-22 14:28:00 112 mm[Hg] [facility] Heart rate 2021-03-22 14:28:00 76 /min [facility] Body height 2021-03-22 14:28:00 175.3 cm [facility] Body weight 2021-03-22 14:28:00 73.211 kg [facility] BMI 2021-03-22 14:28:00 23.83 kg/m2 [facility] Oxygen saturation in Arterial blood by Pulse oximetry 2021-03-22 14:28:00 97 /min [facility] Systolic blood pressure 2021-03-09 18:15:00 200 mm[Hg] [facility] Diastolic blood pressure 2021-03-09 18:15:00 100 mm[Hg] [facility] Heart rate 2021-03-09 18:15:00 77 /min [facility] Body weight 2021-03-09 18:15:00 73.936 kg [facility] BMI 2021-03-09 18:15:00 24.07 kg/m2 [facility] Oxygen saturation in Arterial blood by Pulse oximetry 2021-03-09 18:15:00 97 /min [facility] Systolic blood pressure 2021-02-06 19:29:00 184 mm[Hg] [facility] Diastolic blood pressure 2021-02-06 19:29:00 82 mm[Hg] [facility] Heart rate 2021-02-06 19:29:00 71 /min [facility] Body height 2021-02-06 19:29:00 175.3 cm [facility] Body weight 2021-02-06 19:29:00 75.297 kg [facility] BMI 2021-02-06 19:29:00 24.51 kg/m2 [facility] Respiratory Rate 2024-06-26 16:03:00 Lance Cifuentes BP Systolic 2024-06-26 16:03:00 150 mm[Hg] Lance Cifuentes BP Diastolic 2024-06-26 16:03:00 88 mm[Hg] Lance Cifuentes Weight Measured 2024-06-26 16:03:00 160.60 pounds Lance Cifuentes Height Measured 2024-06-26 16:03:00 66.14 inches Lance Cifuentes Body Temperature 2024-06-26 16:03:00 98.10 degrees Lance Cifuentes Heart Rate 2024-06-26 16:03:00 86.00 /min Lance Bello Esau Heart rate 2022-09-23 17:30:00 76 /min [facility] Respiratory rate 2022-09-23 17:30:00 18 /min [facility] Oxygen saturation in Arterial blood by Pulse oximetry 2022-09-23 17:30:00 99 /min [facility] Systolic blood pressure 2022-09-23 17:21:00 127 mm[Hg] [facility] Diastolic blood pressure 2022-09-23 17:21:00 72 mm[Hg] [facility] Body temperature 2022-09-23 17:21:00 36.78 Tyesha [facility] Body height 2022-09-17 19:10:04 175.3 cm [facility] Body weight 2022-09-17 19:10:04 72.122 kg [facility] BMI 2022-09-17 19:10:04 23.48 kg/m2 [facility] Heart Rate 2019-04-13 17:00:00 [facility] Respitory Rate 2019-04-13 17:00:00 [facility] Systolic (mm Hg) 2019-04-13 17:00:00 [facility] Diastolic (mm Hg) 2019-04-13 17:00:00 [facility] Temperature Oral (F) 2019-04-13 17:00:00 98.4 F [facility] Temperature Oral (F) 2019-04-13 12:55:00 97.4 F [facility] Heart Rate 2019-04-13 12:55:00 [facility] Systolic (mm Hg) 2019-04-13 12:55:00 [facility] Diastolic (mm Hg) 2019-04-13 12:55:00 [facility] Respitory Rate 2019-04-13 12:55:00 [facility] Heart Rate 2019-04-13 08:38:00 [facility] Respitory Rate 2019-04-13 08:38:00 [facility] Temperature Oral (F) 2019-04-13 08:38:00 97.7 F [facility] Systolic (mm Hg) 2019-04-13 08:38:00 [facility] Diastolic (mm Hg) 2019-04-13 08:38:00 [facility] Weight 2019-04-11 19:58:00 [facility] BMI Calculated 2019-04-11 19:58:00 [facility] Height 2019-04-11 19:58:00 177.8 cm [facility] Procedure Date / Time Performed Performing Clinician Source BYPASS 3 COR ART FROM AORTA WITH AUTOL VN, OPEN AP 2024-10-21 00:00:00 CHAAB.01 [facility] EXCISION OF LEFT SAPHENOUS VEIN, PERC ENDO APPROAC 2024-10-21 00:00:00 CHAAB.01 [facility] EXCISION OF RIGHT SAPHENOUS VEIN, PERC ENDO APPROA 2024-10-21 00:00:00 CHAAB.01 [facility] BYPASS 1 COR ART FROM L INT MAMMARY, OPEN APPROACH 2024-10-21 00:00:00 CHAAB.01 [facility] EXCISION OF LEFT ATRIAL APPENDAGE, OPEN APPROACH 2024-10-21 00:00:00 CHAAB.01 [facility] PERFORMANCE OF CARDIAC OUTPUT, CONTINUOUS 2024-10-21 00:00:00 CHAAB.01 [facility] MEASURE OF CARDIAC SAMPL PRESSURE, L HEART, PERC 2024-10-16 00:00:00 SHABA.01 [facility] FLUOROSCOPY OF MULT COR ART USING L OSM CONTRAST 2024-10-16 00:00:00 SHABA.01 [facility] POCT GLUCOSE (AUTOMATED) 2024-06-14 03:52:00 Carmela Tiwari [facility] X-RAY OF CHEST 2 VIEW 2024-03-31 00:00:00 [facility] EXTERNAL PROVIDER RECORDS 2022-11-07 06:01:00 Do ctor Unassigned, [place] [facility] EXTERNAL PROVIDER RECORDS 2022-10-12 06:01:00 Do ctor Unassigned, [place] [facility] MR BRAIN WO CONTRAST 2022-10-03 17:07:00 Johana Young [facility] THYROID STIMULATING HORMONE 2022-10-02 [facility] 2022-10-02 02:04[facility]00 [facility] 2022-10-02 02:04[facility] 2022-10-01 11:14:00 [facility] 2022-10-01 11:14:00 Ruddy Kim [facility] AMMONIA, PLASMA 2022-10-01 11:14:00 Ruddy Kim [facility] ETHANOL 2022-10-01 11:14:00 Ruddy Kim [facility] BASIC METABOLIC PANEL (NA, K, CL, CO2, GLUCOSE, BUN, CREATININE, CA) 2022-10-01 11:11:00 [facility] CBC WITH DIFF 2022-10-01 11:11:00 Ruddy Kim [facility] BASIC METABOLIC PANEL (NA, K, CL, CO2, GLUCOSE, BUN, CREATININE, CA) 2022-10-01 11:11:00 [facility] CBC WITH DIFF 2022-10-01 11:11:00 Ruddy Kim [facility] MRSA / MSSA SCREEN BY PCRRAINE 2022-10-01 11:09:00 Ruddy Kim [facility] MRSA / MSSA SCREEN BY PCR, RAINE 2022-10-01 11:09:[address] [facility] [address] HEAD WO CONTRAST 2022-10-01 05:56:05 Ruddy Kim [facility] CT HEAD WO CONTRAST 2022-10-01 05:56:05 Ruddy Kim [facility] CARDIAC CATHETERIZATION 2022-10-01 04:55:38 Eugenio Padilla [facility] CARDIAC CATHETERIZATION 2022-10-01 04:55:38 Eugenio Padilla [facility] CATH PROCEDURE LOG 2022-10-01 04:40:33 Gabriela Padilla [facility] CATH PROCEDURE LOG 2022-10-01 04:40:33 Gabriela Padilla [facility] EKG-12 LEAD 2022-10-01 04:22:16 [facility] EKG-12 LEAD 2022-10-01 04:22:16 [facility] XR CHEST 1 VW 2022-10-01 04:07:08 [facility] XR CHEST 1 VW 2022-10-01 04:07:08 [facility] [facility] LACTIC ACID WHOLE BLOOD 2022-10-01 03:35:00 Amanda [facility] LACTIC ACID WHOLE BLOOD 2022-10-01 03:35:00 Amanda [facility] TROPONIN I 2022-10-01 03:33:00 Amanda [facility] COMP. METABOLIC PANEL ([id number]) 2022-10-01 03:33:00 Amanda [facility] CBC WITH DIFF 2022-10-01 03:33:00 Amanda [facility] PROTHROMBIN TIME / INR 2022-10-01 03:33:00 Amanda [facility] D-DIMER 2022-10-01 03:33:00 Amanda [facility] ACTIVATED PARTIAL THRMPLAS CAROL 2022-10-01 03:33:00 Amanda [facility] N-TERMINAL PRO-BNP 2022-10-01 03:33:00 Regine Patel [facility] COVID-19 (ID NOW RAPID TESTING) 2022-10-01 03:33:00 Amanda [facility] LAB ONLY COVID INTERPRETATION 2022-10-01 03:33:00 Regine Patel [facility] TROPONIN I 2022-10-01 03:33:00 Regine Patel [facility] COMP. METABOLIC PANEL ([id number]) 2022-10-01 03:33:00 Amanda [facility] CBC WITH DIFF 2022-10-01 03:33:00 Regine Patel [facility] PROTHROMBIN TIME / INR 2022-10-01 03:33:00 Regine Patel [facility] D-DIMER 2022-10-01 03:33:00 Regine Patel [facility] ACTIVATED PARTIAL THRMPLAS CAROL 2022-10-01 03:33:00 Amanda [facility] N-TERMINAL PRO-BNP 2022-10-01 03:33:00 Regine Patel [facility] COVID-19 (ID NOW RAPID TESTING) 2022-10-01 03:33:00 Regine Patel [facility] LAB ONLY COVID INTERPRETATION 2022-10-01 03:33:00 Regine Patel [facility] HB ECG ROUTINE & RHYTHM STRIP 2022-10-01 03:26:36 Regine Patel [facility] CRITICAL CARE 2022-10-01 03:20:00 Regine Patel [facility] CRITICAL CARE 2022-10-01 03:20:00 Regine Patel [facility] XR CHEST 1 VW 2022-09-26 16:21:00 AbBecky Shaw [facility] XR CHEST 1 VW 2022-09-26 16:21:00 Becky Mckee [facility] CARDIAC CATHETERIZATION 2022-09-24 18:42:52 Rambo Lawson [facility] CARDIAC CATHETERIZATION 2022-09-24 18:42:52 Rambo Lawson [facility] POCT ACT LOW RANGE 2022-09-24 17:58:00 Demarcus [facility] POCT ACT LOW RANGE 2022-09-24 17:58:00 Demarcus [facility] POCT ACT LOW RANGE 2022-09-24 17:06:00 Evyguillermo [facility] POCT ACT LOW RANGE 2022-09-24 17:06:00 Demarcus [facility] CATH PROCEDURE LOG 2022-09-24 16:50:45 Renny [facility] CATH PROCEDURE LOG 2022-09-24 16:50:45 Renny [facility] BASIC METABOLIC PANEL (NA, K, CL, CO2, GLUCOSE, BUN, CREATININE, CA) 2022-09-24 14:57:00 Khoi [facility] BASIC METABOLIC PANEL (NA, K, CL, CO2, GLUCOSE, BUN, CREATININE, CA) 2022-09-24 14:57:00 Amanda Wesftall [facility] BASIC METABOLIC PANEL (NA, K, CL, CO2, GLUCOSE, BUN, CREATININE, CA) 2022-09-23 11:59:00 [facility] 2022-09-23 11:59:00 Keisha Espinoza [facility] CBC WITHOUT DIFF 2022-09-23 11:59:00 [facility] 2022-09-23 11:59:00 Keisha Espinoza [facility] BASIC METABOLIC PANEL (NA, K, CL, CO2, GLUCOSE, BUN, CREATININE, CA) 2022-09-23 11:59:00 [facility] CBC WITHOUT DIFF 2022-09-23 11:59:00 [facility] 2022-09-23 11:59:00 Keisha Espinoza [facility] BASIC METABOLIC PANEL (NA, K, CL, CO2, GLUCOSE, BUN, CREATININE, CA) 2022-09-23 11:59:00 [facility] CBC WITHOUT DIFF 2022-09-23 11:59:00 Alexis [facility] CBC WITHOUT DIFF 2022-09-22 11:24:00 [facility] BASIC METABOLIC PANEL (NA, K, CL, CO2, GLUCOSE, BUN, CREATININE, CA) 2022-09-22 11:24:00 [facility] 2022-09-22 11:24:00 Keisha Espinoza [facility] MAGNESIUM 2022-09-22 11:24:00 [facility] MET[facility]OLIC PANEL (NA, K, CL, CO2, GLUCOSE, BUN, CREATININE, CA) 2022-09-22 11:24:00 Alexis [facility] CBC WITHOUT DIFF 2022-09-22 11:24:00 Alexis [facility] MAGNESIUM 2022-09-22 11:24:00 Keisha Espinoza [facility] BASIC METABOLIC PANEL (NA, K, CL, CO2, GLUCOSE, BUN, CREATININE, CA) 2022-09-22 11:24:00 Alexis [facility] CBC WITHOUT DIFF 2022-09-22 11:24:00 Alexis [facility] POCT GLUCOSE (AUTOMATED) 2022-09-21 22:47:00 Abu Ather ah, [facility] POCT GLUCOSE (AUTOMATED) 2022-09-21 22:47:00 Abu Ather ah, [facility] POCT GLUCOSE (AUTOMATED) 2022-09-21 22:47:00 Abu Ather ah, [facility] BODY FLUID MANUAL DIFF 2022-09-21 19:37:00 Tarik Ewing [facility] T.PROTEIN BODY FLUID 2022-09-21 19:37:00 Jeana Ewing [facility] GLUCOSE BODY FLUID 2022-09-21 19:37:00 Jeana Ewing [facility] LDH TOTAL BODY FLUID 2022-09-21 19:37:00 Jeana Ewing [facility] GLUCOSE BODY FLUID 2022-09-21 19:37:00 Jeana Ewing [facility] T.PROTEIN BODY FLUID 2022-09-21 19:37:00 Jeana Ewing [facility] BODY FLUID DIRECT COUNT 2022-09-21 19:37:00 Elissa Ewnig [facility] LDH TOTAL BODY FLUID 2022-09-21 19:37:00 Jeana Ewing [facility] GLUCOSE BODY FLUID 2022-09-21 19:37:00 Jeana Ewing [facility] T.PROTEIN BODY FLUID 2022-09-21 19:37:00 Jeana Ewing [facility] BODY FLUID DIRECT COUNT 2022-09-21 19:37:00 Elissa Ewing [facility] LDH TOTAL BODY FLUID 2022-09-21 19:37:00 Jeana Ewing [facility] IR THORACENTESIS WITH IMAGING 2022-09-21 19:28:00 Jeana Ewing [facility] IR THORACENTESIS WITH IMAGING 2022-09-21 19:28:00 Jeana Ewing [facility] IR THORACENTESIS WITH IMAGING 2022-09-21 19:28:00 Jeana Ewing [facility] CT CHEST PULMONARY ANGIOGRAM 2022-09-21 15:47:07 Demarcus [facility] CT CHEST PULMONARY ANGIOGRAM 2022-09-21 15:47:07 Demarcus [facility] CT CHEST PULMONARY ANGIOGRAM 2022-09-21 15:47:07 Latoshabeckie [facility] BASIC METABOLIC PANEL (NA, K, CL, CO2, GLUCOSE, BUN, CREATININE, CA) 2022-09-20 20:36:00 Jeana Ewing [facility] PROTHROMBIN TIME / INR 2022-09-20 20:36:00 Tarik Ewing [facility] LACTATE DEHYDROGENASE 2022-09-20 20:36:00 Wagner Ewing [facility] LACTATE DEHYDROGENASE 2022-09-20 20:36:00 Wagner Ewing [facility] BASIC METABOLIC PANEL (NA, K, CL, CO2, GLUCOSE, BUN, CREATININE, CA) 2022-09-20 20:36:00 Jeana Ewing [facility] PROTHROMBIN TIME / INR 2022-09-20 20:36:00 Tarik Ewing [facility] LACTATE DEHYDROGENASE 2022-09-20 20:36:00 Wagner Ewing [facility] BASIC METABOLIC PANEL (NA, K, CL, CO2, GLUCOSE, BUN, CREATININE, CA) 2022-09-20 20:36:00 Jeana Ewing [facility] PROTHROMBIN TIME / INR 2022-09-20 20:36:00 Tarik Ewing [facility] POCT GLUCOSE (AUTOMATED) 2022-09-20 03:41:00 Abu Ather ah, [facility] POCT GLUCOSE (AUTOMATED) 2022-09-20 03:41:00 Abu Ather ah, [facility] POCT GLUCOSE (AUTOMATED) 2022-09-20 03:41:00 Abu Ather ah, [facility] CBC WITH DIFF 2022-09-19 11:19:[address] [facility] BASIC METABOLIC PANEL (NA, K, CL, CO2, GLUCOSE, BUN, CREATININE, CA) 2022-09-19 11:19:00 Demarcus [facility] N-TERMINAL PRO-BNP 2022-09-19 11:19:00 Jeana Ewing [facility] BASIC METABOLIC PANEL (NA, K, CL, CO2, GLUCOSE, BUN, CREATININE, CA) 2022-09-19 11:19:00 Demarcus [facility] CBC WITH DIFF 2022-09-19 11:19:[address] [facility] N-TERMINAL PRO-BNP 2022-09-19 11:19:00 Jeana Ewing [facility] BASIC METABOLIC PANEL (NA, K, CL, CO2, GLUCOSE, BUN, CREATININE, CA) 2022-09-19 11:19:00 Demarcus [facility] CBC WITH DIFF 2022-09-19 11:19:[address] [facility] N-TERMINAL PRO-BNP 2022-09-19 11:19:00 Jeana Ewing [facility] XR CHEST 1 VW 2022-09-18 09:32:00 Nargis Mace [facility] XR CHEST 1 VW 2022-09-18 09:32:00 Rodri [facility] XR CHEST 1 VW 2022-09-18 09:32:00 Nargis Mace [facility] ACUTE CARE ARTERIAL BLOOD GAS 2022-09-18 08:51:00 [facility] 2022-09-18 08:51:00 [facility] ARTERIAL BLOOD GAS 2022-09-18 08:51:00 Rodri [facility] EKG-12 LEAD 2022-09-18 07:40:05 Zachariah Neely [facility] CARDIAC CATHETERIZATION 2022-09-17 19:57:10 Renny [facility] CARDIAC CATHETERIZATION 2022-09-17 19:57:10 Renny [facility] CARDIAC CATHETERIZATION 2022-09-17 19:57:10 Renny [facility] CARDIAC CATHETERIZATION 2022-09-17 19:57:10 Renny [facility] CARDIAC CATHETERIZATION 2022-09-17 19:57:10 Renny [facility] CARDIAC CATHETERIZATION 2022-09-17 19:57:10 Renny [facility] CARDIAC CATHETERIZATION 2022-09-17 19:57:10 Renny ana [facility] CARDIAC CATHETERIZATION 2022-09-17 19:57:10 Rambo Lawson [facility] CATH PROCEDURE LOG 2022-09-17 19:34:19 Renny [facility] CATH PROCEDURE LOG 2022-09-17 19:34:19 Renny [facility] POCT GLUCOSE (AUTOMATED) 2022-09-17 06:32:00 Abu Ather ah, [facility] POCT GLUCOSE (AUTOMATED) 2022-09-17 06:32:00 Abu Ather ah, [facility] POCT GLUCOSE (AUTOMATED) 2022-09-17 06:32:00 Abana huizar [facility] POCT GLUCOSE (AUTOMATED) 2022-09-17 06:32:00 Abu Dannielle huizar [facility] BASIC METABOLIC PANEL (NA, K, CL, CO2, GLUCOSE, BUN, CREATININE, CA) 2022-09-16 11:39:00 Demarcus [facility] CBC WITH DIFF 2022-09-16 11:39:[address] [facility] CBC WITH DIFF 2022-09-16 11:39:[address] [facility] BASIC METABOLIC PANEL (NA, K, CL, CO2, GLUCOSE, BUN, CREATININE, CA) 2022-09-16 11:39:00 Evy [facility] BASIC METABOLIC PANEL (NA, K, CL, CO2, GLUCOSE, BUN, CREATININE, CA) 2022-09-16 11:39:00 Demarcus [facility] CBC WITH DIFF 2022-09-16 11:39:[address] [facility] BASIC METABOLIC PANEL (NA, K, CL, CO2, GLUCOSE, BUN, CREATININE, CA) 2022-09-16 11:39:00 Demarcus [facility] CBC WITH DIFF 2022-09-16 11:39:[address] [facility] TROPONIN I 2022-09-15 22:45:00 [facility] TROPONIN I 2022-09-15 22:45:00 Zachariah Neely [facility] TROPONIN I 2022-09-15 22:45:00 Zachariah Neely [facility] TROPONIN I 2022-09-15 22:45:00 Demarcus [facility] TRANSTHORACIC ECHO (TTE) COMPLETE 2022-09-15 21:32:30 Anat Rodriguez [facility] TRANSTHORACIC ECHO (TTE) COMPLETE 2022-09-15 21:32:30 Abu Atherah, [facility] TRANSTHORACIC ECHO (TTE) COMPLETE 2022-09-15 21:32:30 Abu Jennifer [facility] TRANSTHORACIC ECHO (TTE) COMPLETE 2022-09-15 21:32:30 Anat Rodriguez [facility] TROPONIN I 2022-09-15 15:29:00 Teqwimuah Zachariah [facility] TROPONIN I 2022-09-15 15:29:00 Teqwimuah, Zachariah [facility] TROPONIN I 2022-09-15 15:29:00 Teqwimuah, Zachariah [facility] TROPONIN I 2022-09-15 15:29:00 Teqwimuah, Zachariah [facility] CT THORAX WO CONTRAST 2022-09-15 14:21:58 Abu Jennifer [facility] CT THORAX WO CONTRAST 2022-09-15 14:21:58 Abu Athergaye, [facility] CT THORAX WO CONTRAST 2022-09-15 14:21:58 Abu Athergaye, [facility] CT THORAX WO CONTRAST 2022-09-15 14:21:58 u Jennifer [facility] RAPID INFLUENZA A/B 2022-09-15 07:38:00 Tao Mckee [facility] MRSA / MSSA SCREEN BY PCR, JOCELIN 2022-09-15 07:38:00 Abu Jennifer [facility] COVID-19 (ID NOW RAPID TESTING) 2022-09-15 07:38:00 u Jennifer [facility] LAB ONLY COVID INTERPRETATION 2022-09-15 07:38:00 u Jennifer [facility] MRSA / MSSA SCREEN BY PCR, [facility] 2022-09-15 07:38:00 Abu Jennifer [facility] RAPID INFLUENZA A/B 2022-09-15 07:38:00 Tao Mckee [facility] COVID-19 (ID NOW RAPID TESTING) 2022-09-15 07:38:00 [facility] LAB ONLY COVID INTERPRETATION 2022-09-15 07:38:00 Abu Jennifer Becky [facility] RAPID INFLUENZA A/B 2022-09-15 07:38:00 Abu Danniellegaye, [facility] MRSA / MSSA SCREEN BY PCR, NARES 2022-09-15 07:38:00 Abu Danniellegaye [facility] COVID-19 (ID NOW RAPID TESTING) 2022-09-15 07:38:00 Abu [facility] LAB ONLY COVID INTERPRETATION 2022-09-15 07:38:00 Abu [facility] RAPID INFLUENZA A/B 2022-09-15 07:38:00 Abu Dannielle, [facility] MRSA / MSSA SCREEN BY PCR, NARES 2022-09-15 07:38:00 Abu Danniellegaye [facility] COVID-19 (ID NOW RAPID TESTING) 2022-09-15 07:38:00 Abu Jennifer [facility] LAB ONLY COVID INTERPRETATION 2022-09-15 07:38:00 [facility] TROPONIN I 2022-09-15 07:36:00 Abu Dannielle Fawadjenna [facility] BASIC METABOLIC PANEL (NA, K, CL, CO2, GLUCOSE, BUN, CREATININE, CA) 2022-09-15 07:36:00 Anat [facility]aye [facility] CBC WITH DIFF 2022-09-15 07:36:00 Anat Spicer Fawadjenna [facility] PROTHROMBIN TIME / INR 2022-09-15 07:36:00 ana [facility] PROCALCITONIN 2022-09-15 07:36:00 Located [facility] CBC WITH DIFF 2022-09-15 07:36:00 [facility]ated [facility] BASIC METABOLIC PANEL (NA, K, CL, CO2, GLUCOSE, BUN, CREATININE, CA) 2022-09-15 07:36:00 Becky Mckee [facility] TROPONIN I 2022-09-15 07:36:00 Becky Mckee [facility] PROCALCITONIN 2022-09-15 07:36:00 Becky Mckee [facility] PROTHROMBIN TIME / INR 2022-09-15 07:36:00 Becky Mckee [facility] TROPONIN I 2022-09-15 07:36:00 Becky Mckee [facility] BASIC METABOLIC PANEL (NA, K, CL, CO2, GLUCOSE, BUN, CREATININE, CA) 2022-09-15 07:36:00 Becky Mckee [facility] CBC WITH DIFF 2022-09-15 07:36:00 Becky Mckee [facility] PROTHROMBIN TIME / INR 2022-09-15 07:36:00 Becky Mckee [facility] PROCALCITONIN 2022-09-15 07:36:00 Becky Mckee [facility] TROPONIN I 2022-09-15 07:36:00 Becky Mckee [facility] BASIC METABOLIC PANEL (NA, K, CL, CO2, GLUCOSE, BUN, CREATININE, CA) 2022-09-15 07:36:00 Becky Mckee [facility] CBC WITH DIFF 2022-09-15 07:36:00 Becky Mckee [facility] PROTHROMBIN TIME / INR 2022-09-15 07:36:00 Becky Mckee [facility] PROCALCITONIN 2022-09-15 07:36:00 Becky Mckee [facility] HB ECG ROUTINE & RHYTHM STRIP 2022-09-15 07:16:59 Becky Mckee [facility] HOSPITAL ADMISSION 2022-09-15 05:01:00 Doctor Un assigned, [place] [facility] ASSIGNMENT OF BENEFITS 2021-03-22 14:19:01 Docto r Unassigned, [place] [facility] XR LUMBAR SPINE 3 VW 2021-02-06 21:02:16 Mitch Hull [facility] Placement of Stent in Coronary Artery [facility] Surgical Biopsy of Lip Fitch ge [facility] Hemorrhoidectomy [facility] Hemorrhoidectomy [facility] rmann Resection<sup>1</sup> Lakeisha Hernandez Encounters Start Date/Time End Date/Time Encounter Type Admission Type Attending Clinicians Care Facility Care Department Encounter ID Source 2019-04-11 18:42:00 Inpatient E [id number] 2024-11-04 00:09:00 2024-11-04 21:31:00 Inpatient EM Shyla Zepeda HCACL INTE.02 [id number] 96 [facility] 2024-10-14 23:21:00 2024-10-30 15:05:00 Inpatient EM Shyla Zepeda HCACL INTE.02 [id number] 03 [facility] 2024-10-01 09:40:00 2024-10-01 09:40:00 Outpatient NAVYA SHIBERNARDINO [facility] [id number] [facility] 2024-08-26 00:00:00 2024-08-26 00:00:00 Outpatient WOODY MARIN [id number] [facility] 2024-08-14 00:00:00 2024-08-14 00:00:00 Outpatient WOODY MARIN [id number] [facility] 2024-08-04 07:00:00 2024-08-04 23:59:00 Outpatient CATALINA TAY [facility] JASMEET [id number] 71 [facility] 2024-07-29 00:00:00 2024-07-29 00:00:00 Outpatient WOODY MARIN [id number] [facility] 2024-07-01 00:00:00 2024-07-01 00:00:00 Outpatient JAMIA COOLEY [id number] [facility] 2024-06-26 16:01:28 2024-06-26 16:01:28 Outpatient SFA SFA [id number] Lance Cifuentes 2024-06-26 00:00:00 2024-06-26 00:00:00 Outpatient Visit SFA [id number] Lance Cifuentes 2024-06-13 22:01:00 2024-06-13 23:51:00 Emergency X CARMELA IZQUIERDO [facility] ERT [id number] [facility] 2024-06-13 22:01:00 2024-06-13 23:51:00 Emergency Carmela Izquierdo [facility] [id number] [facility] 2024-04-16 13:08:00 2024-04-18 14:40:00 Inpatient E CK HERNANDEZ [facility] CAR [id number] [facility] 2024-04-16 00:00:00 2024-04-16 23:59:00 Outpatient CATALINA TAY [facility] JASMEET [id number] [facility] 2024-03-31 00:00:00 2024-03-31 00:00:00 Liyah Young MD: [address] [place] [address] , [address], [place] [address] , Ph. [facility] [place] - _HOU_[facility] [id number] [facility] e 2024-02-13 00:00:00 2024-02-13 00:00:00 Outpatient BELKIS QUEZADA [id number] [facility] Valdez 2024-02-13 00:00:00 2024-02-13 00:00:00 Outpatient MELISSA DOMINGUEZ [id number] [facility] 2024-02-12 00:00:00 2024-02-12 00:00:00 Outpatient Hector_Shawn PAYTON [facility] [id number] [facility] e 2023-11-23 00:00:00 2023-11-23 00:00:00 Outpatient PREZAS, WOODY QUEZADA BELKIS [id number] [facility] Baltazarrebecca 2023-11-22 00:00:00 2023-11-22 00:00:00 Outpatient PREZAS, WOODY QUEZADA BELKIS [id number] [facility] Valdez 2023-09-26 14:30:00 2023-09-26 14:30:00 Outpatient BELKIS [facility] [id number] [facility] 2023-09-26 07:30:00 2023-09-26 07:30:00 Outpatient BELKIS BELKIS [id number] [facility] 2023-09-19 15:20:00 2023-09-19 15:20:00 Outpatient LAB39 BELKIS QUEZADA [id number] [facility] 2023-09-19 14:50:00 2023-09-19 14:50:00 Outpatient 39, HOLTER [facility]ZADA [id number] [facility] 2023-09-19 13:50:00 2023-09-19 13:50:00 Outpatient ALAJUAN ANTONIO, JAMIA BEL[facility]IS QUEZADA [id number] [facility] 2023-09-19 13:50:00 2023-09-19 13:50:00 Outpatient 39, HOLTER BELKIS QUEZADA [id number] [facility] 2023-09-17 10:00:00 2023-09-17 10:00:00 Outpatient PREZAS, WOODY [facility] QUE[facility] [id number] [facility] 2023-09-09 00:00:00 2023-09-09 00:00:00 Outpatient PREZAS, WOODY BELKIS QUEZADA [id number] [facility] 2023-07-25 00:00:00 2023-07-25 00:00:00 Outpatient PREZAS, WOODY BELKIS QUEZADA [id number] [facility] 2023-07-22 15:00:00 2023-07-22 15:00:00 Outpatient PREZAS, WOODY BELKIS QUEZADA [id number] [facility] 2023-07-01 00:00:00 2023-07-01 00:00:00 Outpatient PREZAWOODY Galvin [id number] [facility] 2023-06-28 00:00:00 2023-06-28 00:00:00 Outpatient WOODY MARIN [id number] [facility] 2023-06-21 10:00:00 2023-06-21 10:00:00 Outpatient WOODY MARIN [id number] [facility] 2023-03-06 00:00:00 2023-03-06 00:00:00 [facility] [id number] [facility] 2023-02-19 00:00:00 2023-02-19 00:00:00 [facility] [id number] [facility] 2023-02-01 00:00:00 2023-02-01 00:00:00 [facility] [id number] [facility] 2022-11-07 00:00:00 2022-11-07 00:00:00 Orders Only Doctor Unassigned, [place] [facility] [id number] [facility] 2022-10-12 00:00:00 2022-10-12 00:00:00 Orders Only Doctor Unassigned, [place] [facility] [id number] [facility] 2022-10-08 00:00:00 2022-10-08 00:00:00 Transition of Care Jena BellTrixie BUENORYAN [id number] [facility] 2022-10-05 00:00:00 2022-10-05 00:00:00 Patient Secure Msg Doctor Unassigned, [place] [facility] [id number] 350.1.13.10 4.2.7.2.686 [id number] [facility] 2022-09-30 21:21:00 2022-10-03 18:30:00 Inpatient X ISIAH KELLY TALHA [facility] [id number] [facility] 2022-09-30 21:21:00 2022-10-03 18:30:00 Hospital Encounter Regine Patel, Isiah Velasco Atul [facility] ([facility] 1.2.840.114 350.1.13.10 4.2.7.2.686 [id number] [facility] 2022-09-30 22:25:00 2022-10-01 01:25:00 Surgery Eugenio Padilla [facility] ([facility] 1.2.840.114 350.1.13.10 4.2.7.2.686 [id number] [facility] 2022-09-27 00:00:00 2022-09-27 00:00:00 Transition of Care Emily Buchanan 1.2.840.114 350.1.13.10 4.2.7.2.686 [id number] [facility] 2022-09-15 01:36:00 2022-09-26 15:02:00 Inpatient U ZACHARIAH NEELY [facility] [id number] [facility] 2022-09-15 01:36:00 2022-09-26 15:02:00 Hospital Encounter Anat Rodriguez, Fawadjenna Ludmila, Emmett Kelly, Isiah Neely, Zachariah [facility] ([facility]) 1.2.840.114 350.1.13.10 4.2.7.2.686 [id number] [facility] 2022-09-24 10:00:00 2022-09-24 12:00:00 Surgery Elijah Lawson [facility] ([facility]) 1.2.840.114 350.1.13.10 4.2.7.2.686 [id number] [facility] 2022-09-17 14:30:00 2022-09-17 15:30:00 Surgery Elijah Lawson 1.2.840.1 [id number] 3.104.2.7 .[id number] .[id number] [facility] 2022-09-17 00:00:00 2022-09-17 00:00:00 Letter (Out) Jamil Manriquez 1.2.840.1 84730.1.1 3.104.2.7 .[id number] .8 [id number] [facility] 2022-09-15 00:00:00 2022-09-15 00:00:00 Travel 1.2.840.1 13359.1.1 3.104.2.7 .[id number] .8 1.2.840.114 350.1.13.10 4.2.7.3.698 [id number] [facility] 2021-09-11 09:45:00 2021-09-11 09:45:00 Outpatient JAMIL GARRETT [facility] [id number] [facility] 2021-06-13 09:15:00 2021-06-13 09:15:00 Outpatient JAMIL GARRETT [facility] [id number] [facility] 2021-06-06 09:40:00 2021-06-06 09:40:00 Outpatient Homero DEAN JEANA [facility] [id number] [facility] 2021-03-22 10:15:00 2021-03-22 10:15:00 Outpatient Homero JAMIL MANRIQUEZ [facility] [id number] [facility] 2021-03-22 09:19:58 2021-03-22 09:40:42 Office Visit Declan [facility] 1.84.114 350.1.13.10 4.2.7.2.686 [id number] [facility] 2021-03-22 00:00:00 2021-03-22 00:00:00 Orders Only Doctor Unassigned, [place] [facility] 1..114 350.1.13.10 4.2.7.2.686 [id number] [facility] 2021-03-14 00:00:00 2021-03-14 00:00:00 Telephone Jamil Manriquez [facility] 1..114 350.1.13.10 4.2.7.2.686 [id number] [facility] 2021-03-09 13:15:00 2021-03-09 13:15:00 Outpatient JAMIL GARRETT [facility] [id number] [facility] 2021-03-09 12:57:56 2021-03-09 13:12:56 Office Visit Jamil Manriquez [facility] 1.114 350.1.13.10 4.2.7.2.686 [id number] [facility] 2021-02-08 00:00:00 2021-02-08 00:00:00 Telephone Mitch Hull [facility] 1.84.114 350.1.13.10 4.2.7.2.686 [id number] [facility] 2021-02-06 15:35:26 2021-02-06 23:59:00 Hospital Encounter Mitch Hull [facility] 1..114 350.1.13.10 4.2.7.2.686 [id number] [facility] 2021-02-06 14:12:59 2021-02-06 14:42:59 Office Visit Mitch Hull [facility] 1.84.114 350.1.13.10 4.2.7.2.686 [id number] [facility] 2021-02-06 14:30:00 2021-02-06 14:30:00 Outpatient R DECLANJAMIL [facility] [id number] [facility] 2020-04-10 05:39:08 2020-04-11 14:17:00 Outpatient ELIGIO CAMARENA [facility] [id number] [facility] 2019-04-11 19:57:00 2019-04-13 17:35:00 [facility] [id number] [facility] Results Test Description Test Time Test Comments Results Result Co mments Source BASIC METABOLIC [id number] 07:14:00* Test Item Value Reference Range Interpretation Comme [...] BLOOD UREA NITROGEN (test code = BUN) 21 mg/dL 7-25 N GLOMERULAR FILTRATION RATE (test [...] 0.6-1.3 N CALCIUM (test code = CA) 8.9 mg/dL 8.0-10.5 N [id number] 07:14:00* Test Item Value Reference Range Interpretation Comme nts MAGNESIUM (test code = MAG) 2.24 mg/dL 1.6-2.6 N TROP-I HIGH [id number] 07:14:00* Test Item Value Reference Range Interpretation Comme nts TROP-I HIGH SENSITIVITY (test code = TROPIHS) 166 ng/L 0-54 HH CAUTION: Units o f the current test [...] URL. These results were obtained using Siemens AtellInspherion IM TnIHreagent. Results from different methodologies should not becompared to one another as quantitative results and URLs mayvary by method. CBC W/AUTO [id number] 06:54:00* Test Item Value Reference Range Interpretation Comme nts WHITE BLOOD CELL (test code = WBC) 16.6 x10 3/uL 4.5-11.0 H RED BLOOD CELL (test code = RBC) 3.09 x10 6/uL 4.00-5.60 L HEMOGLOBIN (test code = HGB) 8.7 g/dL 12.5-16.9 L HEMATOCRIT (test code = HCT) 29.8 % 37.5-50.7 L MEAN CELL VOLUME (test code = MCV) 96.4 fL 81.0-99.0 N MEAN CELL HGB (test code = MCH) 28.2 pg 27.0-33.0 N MEAN CELL HGB CONCETRATION (test code = MCHC) 29.2 g/dL 33.0-37.0 L RED CELL DISTRIBUTION WIDTH CV (test code = RDW) 16.4 % 11.5-14.5 H RED CELL DISTRIBUTION WIDTH SD (test code = RDW-SD) 55.6 fL 37.0-54.0 H PLATELET COUNT (test code = PLT) 623 x10 3/uL 150-400 H MEAN PLATELET VOLUME (test code = MPV) 8.4 fL 7.0-9.0 N NEUTROPHIL % (test code = NT%) 92.5 % 56.0-77.0 H IMMATURE GRANULOCYTE % (test code = IG%) 0.6 % 0.0-2.0 N LYMPHOCYTE % (test code = LY%) 5.4 % 14.0-32.0 L MONOCYTE % (test code = MO%) 1.4 % 4.8-9.0 L EOSINOPHIL % (test code = EO%) 0.0 % 0.3-3.7 L BASOPHIL % (test code = BA%) 0.1 % 0.0-2.0 N NUCLEATED RBC % (test code = NRBC%) 0.0 % 0-0 N NEUTROPHIL # (test code = NT#) 15.33 x10 3/uL 2.0-7.6 H IMMATURE GRANULOCYTE # (test code = IG#) 0.10 x10 3/uL 0.00-0.03 H LYMPHOCYTE # (test code = LY#) 0.89 x10 3/uL 1.0-3.8 L MONOCYTE # (test code = MO#) 0.23 x10 3/uL 0.1-0.8 N EOSINOPHIL # (test code = EO#) 0.00 x10 3/uL 0.0-0.2 N BASOPHIL # (test code = BA#) 0.01 x10 3/uL 0.0-0.2 N NUCLEATED RBC # (test code = NRBC#) 0.00 x10 3/uL 0.0-0.1 N TROP-I HIGH [id number] 02:26:00* Test Item Value Reference Range Interpretation Comme nts TROP-I HIGH SENSITIVITY (test code = TROPIHS) 177 ng/L 0-54 HH CAUTION: Units o f the current test [...] the URL. These results were obtained using [employer]te[employer]ill[employer] IM TnIHreagent. Results from different methodologies should not becompared to one another as quantitative results and URLs mayvary by method. UA RFLX MICR CULT IF [id number] 01:02:00* Test Item Value Reference Range Interpretation Comme nts UA COLOR (test code = COLU) YELLOW YEL/STRAW UA APPEARANCE (test code = APPU) CLEAR CLEAR UA GLUCOSE DIPSTICK (test co de = DGLUU) 1+ NEGATIVE A UA BILIRUBIN DIPSTICK (test code = BILU) NEGATIVE NEGATIVE UA KETONE DIPSTICK (test cod e = KETU) NEGATIVE NEGATIVE UA SPECIFIC GRAVITY (test co de = SGU) 1.011 1.005-1.030 N UA BLOOD DIPSTICK (test code = OSCAR) NEGATIVE NEGATIVE UA PH DIPSTICK (test code = ALTA) 5.0 5.0-7.0 N UA PROTEIN DIPSTICK (test co [...] SQU) NONE SEEN /HPF NONE SEEN UA CALCIUM OXALATE CRYSTALS (test code = CAOXU) TRACE /HPF NONE SEEN UA MUCUS (test code = MUCU) TRACE /LPF NONE SEEN Indication for culture: Gross Hematuria Dysuria/FrequencySpecimen Description: CLEAN CATCHLIPOPROTEIN [id number] 00:23:00* Test Item Value Reference Range Interpretation Comme nts LIPOPROTEIN LDL (test code = LDL) 86.0 mg/dL 0-100 N <100 [id number] 0-129 NEAR OPTIMAL/ABOVE [id number] HIGH>UQ=212 VERY HIGH*Guidelines provided by the National Cholesterol EducationProgram Adult Treatment Panel III B-TYPE NATRIURETIC [id number] 00:13:00* Test Item Value Reference Range Interpretation Comme nts B-TYPE NATRIURETIC PEPTIDE ( test code = BNP) 376.0 PG/ML 0-100 H CBC W/AUTO [id number] 00:03:00* Test Item Value Reference Range Interpretation Comme nts WHITE BLOOD CELL (test code = WBC) 20.5 x10 3/uL 4.5-11.0 H RED BLOOD CELL (test code = RBC) 3.30 x10 6/uL 4.00-5.60 L HEMOGLOBIN (test code = HGB) 9.3 g/dL 12.5-16.9 L HEMATOCRIT (test code = HCT) 30.9 % 37.5-50.7 L MEAN CELL VOLUME (test code = MCV) 93.6 fL 81.0-99.0 N MEAN CELL HGB (test code = MCH) 28.2 pg 27.0-33.0 N MEAN CELL HGB CONCETRATION (test code = MCHC) 30.1 g/dL 33.0-37.0 L RED CELL DISTRIBUTION WIDTH CV (test code = RDW) 16.2 % 11.5-14.5 H RED CELL DISTRIBUTION WIDTH SD (test code = RDW-SD) 53.5 fL 37.0-54.0 N PLATELET COUNT (test code = PLT) 608 x10 3/uL 150-400 H MEAN PLATELET VOLUME (test code = MPV) 8.3 fL 7.0-9.0 N NEUTROPHIL % (test code = NT%) 96.1 % 56.0-77.0 H LYMPHOCYTE % (test code = LY%) 3.0 % 14.0-32.0 L NEUTROPHIL # (test code = NT#) 19.70 x10 3/uL 2.0-7.6 H LYMPHOCYTE # (test code = LY#) 0.62 x10 3/uL 1.0-3.8 L IMMATURE GRANULOCYTE % (test code = IG%) 0.6 % 0.0-2.0 N MONOCYTE % (test code = MO%) 0.2 % 4.8-9.0 L EOSINOPHIL % (test code = EO%) 0.0 % 0.3-3.7 L BASOPHIL % (test code = BA%) 0.1 % 0.0-2.0 N NUCLEATED RBC % (test code = NRBC%) 0.0 % 0-0 N IMMATURE GRANULOCYTE # (test code = IG#) 0.12 x10 3/uL 0.00-0.03 H MONOCYTE # (test code = MO#) 0.04 x10 3/uL 0.1-0.8 L EOSINOPHIL # (test code = EO#) 0.01 x10 3/uL 0.0-0.2 N BASOPHIL # (test code = BA#) 0.02 x10 3/uL 0.0-0.2 N NUCLEATED RBC # (test code = NRBC#) 0.00 x10 3/uL 0.0-0.1 N MANUAL DIFF REQUIRED (test code = MDIFF) NO SLIDE REVIEW ED, CONSISTENT WITH AUTO DIFF. PROTHROMBIN [id number] 00:03:00* Test Item Value Reference Range Interpretation Comme nts PROTHROMBIN TIME PATIENT (test code = PTP) 11.8 SECONDS 9.3-12.9 N INTERNATIONAL NORMAL RATIO (test code = INR) 1.1 0.8-1.2 N TARGET INR BY INDICATION Indication [...] Infarction (to prevent recurrent infarct). THROMBOPLASTIN TIME [id number] 00:03:00* Test Item Value Reference Range Interpretation Comme nts THROMBOPLASTIN TIME PARTIAL (test code = PTT) 36.1 Seconds 25.0-39.5 N Therapeutic Rang e: 58.8 - 96.0 Seconds Effective 09/04/2024 BASIC METABOLIC [id number] 00:00:00* Test Item Value Reference Range Interpretation Comme nts SODIUM (test code = NA) 141 mEq/L 134-147 N POTASSIUM (test code = K) 4.2 mEq/L 3.4-5.0 N CHLORIDE (test code = CL) 107 mEq/L 100-108 N CARBON DIOXIDE (test code = CO2) 27 mEq/l 21-33 N ANION GAP (test code = GAP) 12 0-20 N GLUCOSE (test code = GLU) 143 mg/dL 77-141 H BLOOD UREA NITROGEN (test code = BUN) 19 mg/dL 7-25 N GLOMERULAR FILTRATION RATE (test code = GFR) 68.4 80-90 L The Glomerular Filtration Rate is [...] <18 years. CREATININE (test code = CREAT) 1.2 mg/dL 0.6-1.3 N CALCIUM (test code = CA) 8.9 mg/dL 8.0-10.5 N HEPATIC FUNCTION [id number] 00:00:00* Test Item Value Reference Range Interpretation Comme nts TOTAL PROTEIN (test code = PROT) 7.6 g/dL 6.4-8.2 N ALBUMIN (test code = ALB) 3.40 g/dL 3.4-5.0 N BILIRUBIN TOTAL (test code = BILT) 0.30 mg/dL 0.0-1.0 N BILIRUBIN DIRECT (test code = BILD) 0.10 MG/DL 0.1-0.3 N BILIRUBIN INDIRECT (test cod e = BILIND) 0.20 MG/DL SGOT/AST (test code = AST) 24 IUnit/L 8-34 N SGPT/ALT (test code = ALT) 40 IUnit/L 10-49 N ALKALINE PHOSPHATASE TOTAL ( test code = ALKP) 111 IUnit/L 20-125 N [id number] 00:00:00* Test Item Value Reference Range Interpretation Comme nts MAGNESIUM (test code = MAG) 2.17 mg/dL 1.6-2.6 N TROP-I HIGH [id number] 00:00:00* Test Item Value Reference Range Interpretation Comme nts TROP-I HIGH SENSITIVITY (test code = TROPIHS) 197 ng/L 0-54 HH Critical result called to OMAR Fan [id number] at 2359 11/03/24Nurse read back result and tech confirmed it's correct? YESCAUTION: Units of the current test methodology (ng/L) differfrom the [...] URL. These results were obtained using Siemens AtellInspherion IM TnIHreagent. Results from different methodologies should not becompared to one another as quantitative results and URLs mayvary by method. CBC W/AUTO [id number] 06:15:00* Test Item Value Reference Range Interpretation Comme nts WHITE BLOOD CELL (test code = WBC) 9.8 x10 3/uL 4.5-11.0 N RED BLOOD CELL (test code = RBC) 2.78 x10 6/uL 4.00-5.60 L HEMOGLOBIN (test code = HGB) 7.9 g/dL 12.5-16.9 L HEMATOCRIT (test code = HCT) 25.6 % 37.5-50.7 L MEAN CELL VOLUME (test code = MCV) 92.1 fL 81.0-99.0 N MEAN CELL HGB (test code = MCH) 28.4 pg 27.0-33.0 N MEAN CELL HGB CONCETRATION (test code = MCHC) 30.9 g/dL 33.0-37.0 L RED CELL DISTRIBUTION WIDTH CV (test code = RDW) 15.6 % 11.5-14.5 H RED CELL DISTRIBUTION WIDTH SD (test code = RDW-SD) 50.1 fL 37.0-54.0 N PLATELET COUNT (test code = PLT) 600 x10 3/uL 150-400 H MEAN PLATELET VOLUME (test c ode = MPV) 8.6 fL 7.0-9.0 N NEUTROPHIL % (test code = NT%) 62.4 % 56.0-77.0 N IMMATURE GRANULOCYTE % (test code = IG%) 1.2 % 0.0-2.0 N LYMPHOCYTE % (test code = LY%) 22.3 % 14.0-32.0 N MONOCYTE % (test code = MO%) 9.2 % 4.8-9.0 H EOSINOPHIL % (test code = EO%) 4.3 % 0.3-3.7 H BASOPHIL % (test code = BA%) 0.6 % 0.0-2.0 N NUCLEATED RBC % (test code = NRBC%) 0.3 % 0-0 H NEUTROPHIL # (test code = NT#) 6.12 x10 3/uL 2.0-7.6 N IMMATURE GRANULOCYTE # (test code = IG#) 0.12 x10 3/uL 0.00-0.03 H LYMPHOCYTE # (test code = LY#) 2.19 x10 3/uL 1.0-3.8 N MONOCYTE # (test code = MO#) 0.90 x10 3/uL 0.1-0.8 H EOSINOPHIL # (test code = EO#) 0.42 x10 3/uL 0.0-0.2 H BASOPHIL # (test code = BA#) 0.06 x10 3/uL 0.0-0.2 N NUCLEATED RBC # (test code = NRBC#) 0.03 x10 3/uL 0.0-0.1 N BASIC METABOLIC [id number] 06:12:00* Test Item Value Reference Range Interpretation [...] code = CA) 8.7 mg/dL 8.0-10.5 N [id number] 06:12:00* Test Item Value Reference Range Interpretation Comme nts MAGNESIUM (test code = MAG) 2.08 mg/dL 1.6-2.6 N BASIC METABOLIC [id number] 04:45:00* Test Item Value Reference Range Interpretation [...] code = CA) 8.5 mg/dL 8.0-10.5 N [id number] 04:45:00* Test Item Value Reference Range Interpretation Comme nts MAGNESIUM (test code = MAG) 1.96 mg/dL 1.6-2.6 N CBC W/AUTO [id number] 04:25:00* Test Item Value Reference Range Interpretation [...] 0.02 x10 3/uL 0.0-0.1 N BASIC METABOLIC [id number] 01:58:00* Test Item Value Reference Range Interpretation [...] code = CA) 8.4 mg/dL 8.0-10.5 N [id number] 01:58:00* Test Item Value Reference Range Interpretation Comme nts MAGNESIUM (test code = MAG) 1.82 mg/dL 1.6-2.6 N CBC W/AUTO [id number] 01:43:00* Test Item Value Reference Range Interpretation [...] 0.04 x10 3/uL 0.0-0.1 N CBC W/AUTO [id number] 02:54:00* Test Item Value Reference Range Interpretation Comme nts WHITE BLOOD CELL (test code = WBC) 11.2 x10 3/uL 4.5-11.0 H RED BLOOD CELL (test code = RBC) 2.23 x10 6/uL 4.00-5.60 L HEMOGLOBIN (test code = HGB) 6.3 g/dL 12.5-16.9 LL Critical result called to ROGER DAVIDSON Olga [id number] at 0254 10/27/24Nurse read back result and [...] 0.07 x10 3/uL 0.0-0.1 N BASIC METABOLIC [id number] 02:54:00* Test Item Value Reference Range Interpretation [...] code = CA) 8.0 mg/dL 8.0-10.5 N [id number] 02:54:00* Test Item Value Reference Range Interpretation Comme nts MAGNESIUM (test code = MAG) 2.06 mg/dL 1.6-2.6 N [id number] 13:06:00* Test Item Value Reference Range Interpretation Comments SURGICAL (test code = SR) RUN DATE: 10/26/24 [facility] - LAB PAGE 1 RUN TIME: 1306 Specimen Inquiry RUN USER: INTERFACE PATIENT: CLEO LONG LOC: JUVENAL U #: [id number] AGE/SX: 63/M ROOM: [facility] RE10/14/24REG DR: Shyla Zepeda MD : 62 BED: 1 DIS: STATUS: ADM IN TLOC: SPEC #: [id number] RECD: 10/22/24-1250 STATUS: JM TIM #: [id number] MEENA: 10/21/24- SUBM DR: Shyla Zepeda MD ENTERED: 10/22/24-125 SP TYPE: SURGICAL OTHR DR: No Primary or Family Physician Self Referred Deniz Ko MD, Curtis S DO Kumar, Mohan X MDORDERED: [id number], ANATOMIC SPEC COPIES TO: No Primary or Family Physician Self Referred hSyla Zepeda MD [address], [address] [place] [id number] Deniz Ko MD [address] [place] [phone] Vijay Olvera DO [phone] [place] [address] [place] [address] PROCEDURES: 03414 (10/22/24-1251) TISSUES: A. ATRIUM - LEFT ATRIAL APPENDAGE CLINICAL HISTORY SAME CONTINUED ON NEXT PAGE RUN DATE: 10/26/24 [facility] PAGE 2 RUN TIME: 1306 Specimen Inquiry RUN USER: INTERFACE SPEC #: [id number] PATIENT: CLEO LONG #[id number] (Continued) - FINAL DIAGNOSIS Heart, left atrial appendage, wedge biopsy: - Myocardium with focal mild ischemic change. GROSS DESCRIPTION Received in formalin labeled "left atrial appendage" is a 3.2 x 2 x 0.8 cm lowe-red atrialappendage. The specimen is serially sectioned and no gross lesions are identified. Snaker sections are submitted in cassette A. Technical component performed at [facility],[address] [place] [address], [place] [address] Unless gross only, the diagnosis is based upon microscopic examination.Immunohistochemistry: This test was developed and its performance characteristicsdetermined by this laboratory. It has not been approved nor does it need approvalby the [place] FDA. Appropriate positive and negative controls are reviewed and judgedto be acceptable for performedimmunohistochemistry and/or special stains. This laboratoryis certified under the Clinical Laboratory Improvement Amendments (CLIA-88) as qualified toperform high complexity clinical laboratory testing. MICROSCOPIC DESCRIPTION A microscopic examination was performed. CLINICAL INFORMATION CORONARY ARTERY DISEASE Signed SIGNATURE ON FILE Rekha Sierra 10/26/24 1306 END OF REPORT BASIC METABOLIC [id number] 04:01:00* Test Item Value Reference Range Interpretation [...] code = CA) 7.8 mg/dL 8.0-10.5 L [id number] 04:01:00* Test Item Value Reference Range Interpretation Comme nts MAGNESIUM (test code = MAG) 2.09 mg/dL 1.6-2.6 N CBC W/AUTO [id number] 03:44:00* Test Item Value Reference Range Interpretation [...] NRBC#) 0.04 x10 3/uL 0.0-0.1 N GLUCOSE [id number] 17:22:00* Test Item Value Reference Range Interpretation Comme nts GLUCOSE BEDSIDE (test code = GLUBED) 112 MG/DL 70-110 H Performed by cer yesika pipe machine operator at [facility] CBC W/AUTO [id number] 04:37:00* Test Item Value Reference Range Interpretation Comme nts WHITE BLOOD CELL (test code = WBC) 12.2 x10 3/uL 4.5-11.0 H RED BLOOD CELL (test code = RBC) 2.18 x10 6/uL 4.00-5.60 L HEMOGLOBIN (test code = HGB) 6.4 g/dL 12.5-16.9 LL Critical result called to WILMA Espinoza [id number] at 0437 10/25/24Nurse read back result and [...] 0.00 x10 3/uL 0.0-0.1 N BASIC METABOLIC [id number] 04:32:00* Test Item Value Reference Range Interpretation [...] code = CA) 8.1 mg/dL 8.0-10.5 N [id number] 04:32:00* Test Item Value Reference Range Interpretation Comme nts MAGNESIUM (test code = MAG) 2.01 mg/dL 1.6-2.6 N HGB [id number] 03:19:00* Test Item Value Reference Range Interpretation Comme nts HEMOGLOBIN (test code = HGB) 6.1 g/dL 12.5-16.9 LL Critical result called to BECKY ESQUIVEL RN by [id number] at 03110/24/24Nurse read back result and tech confirmed it's correct? YES HEMATOCRIT (test code = HCT) 18.9 % 37.5-50.7 L BASIC METABOLIC [id number] 02:39:00* Test Item Value Reference Range Interpretation [...] mg/dL 8.0-10.5 N COMMENTS: POD #1HEPATIC FUNCTION [id number] 02:39:00* Test Item Value Reference Range Interpretation [...] ALKP) 56 IUnit/L 20-125 N COMMENTS: POD #[id number] 02:39:00* Test Item Value Reference Range Interpretation Comme nts MAGNESIUM (test code = MAG) 2.17 mg/dL 1.6-2.6 N COMMENTS: POD #1CBC W/AUTO [id number] 02:23:00* Test Item Value Reference Range Interpretation Comme nts WHITE BLOOD CELL (test code = WBC) 13.4 x10 3/uL 4.5-11.0 H RED BLOOD CELL (test code = RBC) 2.17 x10 6/uL 4.00-5.60 L HEMOGLOBIN (test code = HGB) 6.3 g/dL 12.5-16.9 LL Critical result called to VICKI DAVIDSON RNby [id number] at 22010/24/24Nurse read back result and tech [...] x10 3/uL 0.0-0.1 N POC ARTERIAL BLOOD [id number] 10:25:00* Test Item Value Reference Range Interpretation Comme nts POC ARTERIAL BLOOD GAS PH (test code = POCPHA) 7.523 7.35-7.45 HH POC ARTERIAL BLOOD GAS PCO2 (test code = HROKQW4I) 26.4 mmHg 35.0-45 LL POC TCO2 ARTERIAL (test code = POCTCO2) 22.5 22-29 N POC ARTERIAL BLOOD GAS PO2 (test code = AJZKG5T) 62.7 mmHg 80-100.0 L POC HCO3 ARTERIAL (test code = VXBQPK0O) 21.7 MMOL/L 22.0-26.0 L POC BASE EXCESS [...] (test code = ALLENS) N/A BASIC METABOLIC [id number] 10:25:00* Test Item Value Reference Range Interpretation [...] = POCGLU) 124 MG/DL 70-110 H HEMOGLOBIN [id number] 10:25:00* Test Item Value Reference Range Interpretation Comme nts HEMOGLOBIN ABG (test code = HGB/ABG) 7.7 G/DL 12.5-16.9 L [id number] 10:25:00* Test Item Value Reference Range Interpretation Comme nts HEMATOCRIT (test code = HCT/ABG) 23 % 38-51 L POC LACTIC [id number] 10:25:00* Test Item Value Reference Range Interpretation Comme nts POC LACTIC ACID (test code = POCLAC) 2.3 mmol/l 0.9-1.7 H GLUCOSE [id number] 10:21:00* Test Item Value Reference Range Interpretation Comme nts GLUCOSE BEDSIDE (test code = GLUBED) 99 MG/DL 70-110 N Performed by cer tified pipe machine operator at [facility] POC ARTERIAL BLOOD [id number] 06:23:00* Test Item Value Reference Range Interpretation Comme nts POC ARTERIAL BLOOD GAS PH (test code = POCPHA) 7.474 7.35-7.45 H POC ARTERIAL BLOOD GAS PCO2 (test code = BUPULU7L) 34.5 mmHg 35.0-45 L POC TCO2 ARTERIAL (test code = POCTCO2) 26.3 22-29 N POC ARTERIAL BLOOD GAS PO2 (test code = ZBWGC7H) 75.1 mmHg 80-100.0 L POC HCO3 ARTERIAL (test code = WIYJDD8C) 25.3 MMOL/L 22.0-26.0 N POC BASE EXCESS [...] code = SITEA) Art Line BASIC METABOLIC [id number] 06:23:00* Test Item Value Reference Range Interpretation [...] = POCGLU) 132 MG/DL 70-110 H HEMOGLOBIN [id number] 06:23:00* Test Item Value Reference Range Interpretation Comme nts HEMOGLOBIN ABG (test code = HGB/ABG) 7.0 G/DL 12.5-16.9 L [id number] 06:23:00* Test Item Value Reference Range Interpretation Comme nts HEMATOCRIT (test code = HCT/ABG) 21 % 38-51 L POC LACTIC [id number] 06:23:00* Test Item Value Reference Range Interpretation Comme nts POC LACTIC ACID (test code = POCLAC) 1.3 mmol/l 0.9-1.7 N POC ARTERIAL BLOOD [id number] 05:14:00* Test Item Value Reference Range Interpretation Comme nts POC ARTERIAL BLOOD GAS PH (test code = POCPHA) 7.465 7.35-7.45 H POC ARTERIAL BLOOD GAS PCO2 (test code = ENJPMO2W) 36.3 mmHg 35.0-45 N POC TCO2 ARTERIAL (test code = POCTCO2) 27.3 22-29 N POC ARTERIAL BLOOD GAS PO2 (test code = LQHTA0U) 100.8 mmHg 80-100.0 H POC HCO3 ARTERIAL (test code = ZGEEGI1I) 26.1 MMOL/L 22.0-26.0 H POC BASE EXCESS [...] code = SITEA) Art Line BASIC METABOLIC [id number] 05:14:00* Test Item Value Reference Range Interpretation [...] = POCGLU) 136 MG/DL 70-110 H HEMOGLOBIN [id number] 05:14:00* Test Item Value Reference Range Interpretation Comme nts HEMOGLOBIN ABG (test code = HGB/ABG) 7.1 G/DL 12.5-16.9 L [id number] 05:14:00* Test Item Value Reference Range Interpretation Comme nts HEMATOCRIT (test code = HCT/ABG) 21 % 38-51 L POC LACTIC [id number] 05:14:00* Test Item Value Reference Range Interpretation Comme nts POC LACTIC ACID (test code = POCLAC) 1.3 mmol/l 0.9-1.7 N POC ARTERIAL BLOOD [id number] 04:08:00* Test Item Value Reference Range Interpretation Comme nts POC ARTERIAL BLOOD GAS PH (test code = POCPHA) 7.460 7.35-7.45 H POC ARTERIAL BLOOD GAS PCO2 (test code = RDKEBE7V) 35.6 mmHg 35.0-45 N POC TCO2 ARTERIAL (test code = POCTCO2) 26.4 22-29 N POC ARTERIAL BLOOD GAS PO2 (test code = KGNEA3M) 133.2 mmHg 80-100.0 H POC HCO3 ARTERIAL (test code = WOUTNK7V) 25.3 MMOL/L 22.0-26.0 N POC BASE EXCESS [...] code = SITEA) Art Line BASIC METABOLIC [id number] 04:08:00* Test Item Value Reference Range Interpretation [...] = POCGLU) 145 MG/DL 70-110 H HEMOGLOBIN [id number] 04:08:00* Test Item Value Reference Range Interpretation Comme nts HEMOGLOBIN ABG (test code = HGB/ABG) 7.0 G/DL 12.5-16.9 L [id number] 04:08:00* Test Item Value Reference Range Interpretation Comme nts HEMATOCRIT (test code = HCT/ABG) 21 % 38-51 L POC LACTIC [id number] 04:08:00* Test Item Value Reference Range Interpretation Comme nts POC LACTIC ACID (test code = POCLAC) 2.0 mmol/l 0.9-1.7 H CBC W/AUTO [id number] 03:53:00* Test Item Value Reference Range Interpretation [...] ED, CONSISTENT WITH AUTO DIFF. BASIC METABOLIC [id number] 03:18:00* Test Item Value Reference Range Interpretation [...] mg/dL 8.0-10.5 N COMMENTS: POD #1HEPATIC FUNCTION [id number] 03:18:00* Test Item Value Reference Range Interpretation [...] ALKP) 61 IUnit/L 20-125 N COMMENTS: POD #[id number] 03:18:00* Test Item Value Reference Range Interpretation Comme nts MAGNESIUM (test code = MAG) 2.06 mg/dL 1.6-2.6 N COMMENTS: POD #1POC ARTERIAL BLOOD [id number] 19:50:00* Test Item Value Reference Range Interpretation Comme nts POC ARTERIAL BLOOD GAS PH (test code = POCPHA) 7.434 7.35-7.45 N POC ARTERIAL BLOOD GAS PCO2 (test code = LBEFTO6I) 38.5 mmHg 35.0-45 N POC TCO2 ARTERIAL (test code = POCTCO2) 26.7 22-29 N POC ARTERIAL BLOOD GAS PO2 (test code = UIFAW5B) 64.1 mmHg 80-100.0 L POC HCO3 ARTERIAL (test code = MYLGSE7V) 25.5 MMOL/L 22.0-26.0 N POC BASE EXCESS [...] (test code = ALLENS) N/A BASIC METABOLIC [id number] 19:50:00* Test Item Value Reference Range Interpretation [...] = POCGLU) 144 MG/DL 70-110 H HEMOGLOBIN [id number] 19:50:00* Test Item Value Reference Range Interpretation Comme nts HEMOGLOBIN ABG (test code = HGB/ABG) 7.1 G/DL 12.5-16.9 L [id number] 19:50:00* Test Item Value Reference Range Interpretation Comme nts HEMATOCRIT (test code = HCT/ABG) 21 % 38-51 L POC LACTIC [id number] 19:50:00* Test Item Value Reference Range Interpretation Comme nts POC LACTIC ACID (test code = POCLAC) 1.7 mmol/l 0.9-1.7 N CBC W/AUTO [id number] 17:46:00* Test Item Value Reference Range Interpretation [...] (test c ode = MDIFF) YES WBC [id number] 17:46:00* Test Item Value Reference Range Interpretation [...] (test co de = PLTMORPH) NORMAL GLUCOSE [id number] 08:53:00* Test Item Value Reference Range Interpretation Comme nts GLUCOSE BEDSIDE (test code = GLUBED) 87 MG/DL 70-110 N Performed by cer tified pipe machine operator at [facility] POC ARTERIAL BLOOD [id number] 06:23:00* Test Item Value Reference Range Interpretation Comme nts POC ARTERIAL BLOOD GAS PH (test code = POCPHA) 7.393 7.35-7.45 N POC ARTERIAL BLOOD GAS PCO2 (test code = AACHHG8V) 40.8 mmHg 35.0-45 N POC TCO2 ARTERIAL (test code = POCTCO2) 26.1 22-29 N POC ARTERIAL BLOOD GAS PO2 (test code = RGAYP4S) 70.4 mmHg 80-100.0 L POC HCO3 ARTERIAL (test code = HWGAZO5M) 24.8 MMOL/L 22.0-26.0 N POC BASE EXCESS [...] code = SITEA) Art Line BASIC METABOLIC [id number] 06:23:00* Test Item Value Reference Range Interpretation [...] = POCGLU) 160 MG/DL 70-110 H HEMOGLOBIN [id number] 06:23:00* Test Item Value Reference Range Interpretation Comme nts HEMOGLOBIN ABG (test code = HGB/ABG) 7.4 G/DL 12.5-16.9 L [id number] 06:23:00* Test Item Value Reference Range Interpretation Comme nts HEMATOCRIT (test code = HCT/ABG) 22 % 38-51 L POC LACTIC [id number] 06:23:00* Test Item Value Reference Range Interpretation Comme nts POC LACTIC ACID (test code = POCLAC) 1.3 mmol/l 0.9-1.7 N POC ARTERIAL BLOOD [id number] 04:52:00* Test Item Value Reference Range Interpretation Comme nts POC ARTERIAL BLOOD GAS PH (test code = POCPHA) 7.393 7.35-7.45 N POC ARTERIAL BLOOD GAS PCO2 (test code = QAABMA8A) 40.9 mmHg 35.0-45 N POC TCO2 ARTERIAL (test code = POCTCO2) 26.1 22-29 N POC ARTERIAL BLOOD GAS PO2 (test code = FQFVC3E) 70.4 mmHg 80-100.0 L POC HCO3 ARTERIAL (test code = HVNBCS8V) 24.9 MMOL/L 22.0-26.0 N POC BASE EXCESS [...] code = SITEA) Art Line BASIC METABOLIC [id number] 04:52:00* Test Item Value Reference Range Interpretation [...] = POCGLU) 145 MG/DL 70-110 H HEMOGLOBIN [id number] 04:52:00* Test Item Value Reference Range Interpretation Comme nts HEMOGLOBIN ABG (test code = HGB/ABG) 7.9 G/DL 12.5-16.9 L [id number] 04:52:00* Test Item Value Reference Range Interpretation Comme nts HEMATOCRIT (test code = HCT/ABG) 23 % 38-51 L POC LACTIC [id number] 04:52:00* Test Item Value Reference Range Interpretation Comme nts POC LACTIC ACID (test code = POCLAC) 2.3 mmol/l 0.9-1.7 H POC ARTERIAL BLOOD [id number] 03:48:00* Test Item Value Reference Range Interpretation Comme nts POC ARTERIAL BLOOD GAS PH (test code = POCPHA) 7.405 7.35-7.45 N POC ARTERIAL BLOOD GAS PCO2 (test code = VCOPUW7R) 44.5 mmHg 35.0-45 N POC TCO2 ARTERIAL (test code = POCTCO2) 29.2 22-29 H POC ARTERIAL BLOOD GAS PO2 (test code = GGSAY4X) 101.3 mmHg 80-100.0 H POC HCO3 ARTERIAL (test code = KUNWHN8O) 27.9 MMOL/L 22.0-26.0 H POC BASE EXCESS (test code = POCBEA) 3.1 MMOL/L See_Comment N [Automated messa ge] The system which generated this result transmitted reference range: 0-+/-4. The reference range was not used to interpret this result as normal/abnormal. POC O2 SATURATION (test code = POCO2S) 97.8 % 90-100 N FIO2 (test code = FIO2A) 40 % PaO2/FiO2 (test code = BBL3YJW6) 253.25 mm/Hg ABG DELIVERY (test code = LEENA) BiPAP ABG PEEP (test code = PEEPA) 6 cmH2O ABG PRESSURE SUPPORT (test code = PSABG) 12 cmH2O ABG TEMPERATURE (test code = TEMPA) 100 F ABG SITE (test code = SITEA) Art Line BASIC METABOLIC [id number] 03:48:00* Test Item Value Reference Range Interpretation [...] = POCGLU) 122 MG/DL 70-110 H HEMOGLOBIN [id number] 03:48:00* Test Item Value Reference Range Interpretation Comme nts HEMOGLOBIN ABG (test code = HGB/ABG) 7.1 G/DL 12.5-16.9 L [id number] 03:48:00* Test Item Value Reference Range Interpretation Comme nts HEMATOCRIT (test code = HCT/ABG) 21 % 38-51 L POC LACTIC [id number] 03:48:00* Test Item Value Reference Range Interpretation Comme nts POC LACTIC ACID (test code = POCLAC) 1.1 mmol/l 0.9-1.7 N BASIC METABOLIC [id number] 03:24:00* Test Item Value Reference Range Interpretation [...] mg/dL 8.0-10.5 N COMMENTS: POD #1HEPATIC FUNCTION [id number] 03:24:00* Test Item Value Reference Range Interpretation [...] ALKP) 59 IUnit/L 20-125 N COMMENTS: POD #[id number] 03:24:00* Test Item Value Reference Range Interpretation Comme nts MAGNESIUM (test code = MAG) 2.12 mg/dL 1.6-2.6 COMMENTS: POD #1CBC W/AUTO [id number] 03:06:00* Test Item Value Reference Range Interpretation [...] x10 3/uL 0.0-0.1 N POC ARTERIAL BLOOD [id number] 00:31:00* Test Item Value Reference Range Interpretation Comme nts POC ARTERIAL BLOOD GAS PH (test code = POCPHA) 7.424 7.35-7.45 N POC ARTERIAL BLOOD GAS PCO2 (test code = IAMKYO3Q) 44.0 mmHg 35.0-45 N POC TCO2 ARTERIAL (test code = POCTCO2) 30.2 22-29 H POC ARTERIAL BLOOD GAS PO2 (test code = GIQJD3H) 203.4 mmHg 80-100.0 HH POC HCO3 ARTERIAL (test code = NLEYKE0L) 28.8 MMOL/L 22.0-26.0 HH POC BASE EXCESS (test code = POCBEA) 4.4 MMOL/L See_Comment H [Automated messa ge] The system which generated this result transmitted reference range: 0-+/-4. The reference range was not used to interpret this result as normal/abnormal. POC O2 SATURATION (test code = POCO2S) 99.7 % 90-100 N FIO2 (test code = FIO2A) 60 % PaO2/FiO2 (test code = DKU8QBK4) 339.00 mm/Hg ABG DELIVERY (test code = LEENA) BiPAP ABG PEEP (test code = PEEPA) 6 cmH2O ABG PRESSURE SUPPORT (test code = PSABG) 12 cmH2O ABG TEMPERATURE (test code = TEMPA) 98 F ABG SITE (test code = SITEA) Art Line BASIC METABOLIC [id number] 00:31:00* Test Item Value Reference Range Interpretation [...] = POCGLU) 127 MG/DL 70-110 H HEMOGLOBIN [id number] 00:31:00* Test Item Value Reference Range Interpretation Comme nts HEMOGLOBIN ABG (test code = HGB/ABG) 6.9 G/DL 12.5-16.9 L [id number] 00:31:00* Test Item Value Reference Range Interpretation Comme nts HEMATOCRIT (test code = HCT/ABG) 20 % 38-51 L POC LACTIC [id number] 00:31:00* Test Item Value Reference Range Interpretation Comme nts POC LACTIC ACID (test code = POCLAC) 1.1 mmol/l 0.9-1.7 N POC ARTERIAL BLOOD [id number] 22:56:00* Test Item Value Reference Range Interpretation Comme nts POC ARTERIAL BLOOD GAS PH (test code = POCPHA) 7.461 7.35-7.45 H POC ARTERIAL BLOOD GAS PCO2 (test code = KDHBXI5D) 37.6 mmHg 35.0-45 N POC TCO2 ARTERIAL (test code = POCTCO2) 28.0 22-29 N POC ARTERIAL BLOOD GAS PO2 (test code = DAFZA4L) 58.9 mmHg 80-100.0 L POC HCO3 ARTERIAL (test code = BLNGNH0M) 26.8 MMOL/L 22.0-26.0 H POC BASE EXCESS [...] (test code = ALLENS) N/A BASIC METABOLIC [id number] 22:56:00* Test Item Value Reference Range Interpretation [...] = POCGLU) 139 MG/DL 70-110 H HEMOGLOBIN [id number] 22:56:00* Test Item Value Reference Range Interpretation Comme nts HEMOGLOBIN ABG (test code = HGB/ABG) 7.9 G/DL 12.5-16.9 L [id number] 22:56:00* Test Item Value Reference Range Interpretation Comme nts HEMATOCRIT (test code = HCT/ABG) 23 % 38-51 L POC LACTIC [id number] 22:56:00* Test Item Value Reference Range Interpretation Comme nts POC LACTIC ACID (test code = POCLAC) 1.6 mmol/l 0.9-1.7 N POC ARTERIAL BLOOD [id number] 21:04:00* Test Item Value Reference Range Interpretation Comme nts POC ARTERIAL BLOOD GAS PH (test code = POCPHA) 7.422 7.35-7.45 N POC ARTERIAL BLOOD GAS PCO2 (test code = OLSYRZ7Z) 43.5 mmHg 35.0-45 N POC TCO2 ARTERIAL (test code = POCTCO2) 29.7 22-29 H POC ARTERIAL BLOOD GAS PO2 (test code = TABBR9A) 74.8 mmHg 80-100.0 L POC HCO3 ARTERIAL (test code = EXPMJC0B) 28.3 MMOL/L 22.0-26.0 HH POC BASE EXCESS [...] code = SITEA) Art Line BASIC METABOLIC [id number] 21:04:00* Test Item Value Reference Range Interpretation [...] = POCGLU) 125 MG/DL 70-110 H HEMOGLOBIN [id number] 21:04:00* Test Item Value Reference Range Interpretation Comme nts HEMOGLOBIN ABG (test code = HGB/ABG) 6.9 G/DL 12.5-16.9 L [id number] 21:04:00* Test Item Value Reference Range Interpretation Comme nts HEMATOCRIT (test code = HCT/ABG) 20 % 38-51 L POC LACTIC [id number] 21:04:00* Test Item Value Reference Range Interpretation Comme nts POC LACTIC ACID (test code = POCLAC) 1.5 mmol/l 0.9-1.7 N POC ARTERIAL BLOOD [id number] 17:38:00* Test Item Value Reference Range Interpretation Comme nts POC ARTERIAL BLOOD GAS PH (test code = POCPHA) 7.384 7.35-7.45 N POC ARTERIAL BLOOD GAS PCO2 (test code = ZEVRDM0I) 47.8 mmHg 35.0-45 H POC TCO2 ARTERIAL (test code = POCTCO2) 30.0 22-29 H POC ARTERIAL BLOOD GAS PO2 (test code = ZAEVG1K) 160.3 mmHg 80-100.0 H POC HCO3 ARTERIAL (test code = UUFCHR0I) 28.5 MMOL/L 22.0-26.0 HH POC BASE EXCESS (test code = POCBEA) 3.5 MMOL/L See_Comment N [Automated messa ge] The system which generated this result transmitted reference range: 0-+/-4. The reference range was not used to interpret this result as normal/abnormal. POC O2 SATURATION (test code = POCO2S) 99.4 % 90-100 N FIO2 (test code = FIO2A) 40 % PaO2/FiO2 (test code = HVI9QZY5) 400.75 mm/Hg ABG DELIVERY (test code = LEENA) Adult Vent ABG TIDAL VOLUME (test code = TVA) 500 ml ABG PEEP (test code = PEEPA) 5 cmH2O ABG PRESSURE SUPPORT (test code = PSABG) 10 cmH2O ABG TEMPERATURE (test code = TEMPA) 97.9 F ABG SITE (test code = SITEA) Art Line EDUARDA'S TEST (test code = ALLENS) N/A BASIC METABOLIC [id number] 17:38:00* Test Item Value Reference Range Interpretation [...] = POCGLU) 114 MG/DL 70-110 H HEMOGLOBIN [id number] 17:38:00* Test Item Value Reference Range Interpretation Comme nts HEMOGLOBIN ABG (test code = HGB/ABG) 6.0 G/DL 12.5-16.9 L [id number] 17:38:00* Test Item Value Reference Range Interpretation Comme nts HEMATOCRIT (test code = HCT/ABG) 18 % 38-51 L POC LACTIC [id number] 17:38:00* Test Item Value Reference Range Interpretation Comme nts POC LACTIC ACID (test code = POCLAC) 1.6 mmol/l 0.9-1.7 N [id number] 15:30:00* Test Item Value Reference Range Interpretation Comme nts R-TIME (test code = RTIME) 7.7 min 4.6-9.1 N K-TIME (test code = KTIME) 0.9 min 0.8-2.1 N ANGLE (test code = ANG) 77.0 degrees 63-78 N MAXIMUM AMPLITUDE (test code = MA) 67.3 mm 52-69 N TEG COTTON BAG CLIPPER RAP MAXIMUM AMPLITUD E (test code = CRTMA) 66.8 mm 52-70 N TEG CIT KOALIN HEPARINASE CT (test code = CKHR) 6.1 mins 4.3-8.3 N Citrated FUNC FIB MAX AMP (t est code = CFFMA) 23.3 mm 15-32 N CIT FUNCTIONAL FIB ESTIMATED (test code = CFFFLEV) 425.2 mg/dL 278-581 N BASIC METABOLIC [id number] 15:18:00* Test Item Value Reference Range Interpretation [...] mg/dL 8.0-10.5 N COMMENTS: On arrivalComment: On [id number] 15:18:00* Test Item Value Reference Range Interpretation Comme nts MAGNESIUM (test code = MAG) 2.84 mg/dL 1.6-2.6 H COMMENTS: On arrivalComment: On arrivalPO ARTERIAL BLOOD [id number] 15:14:00 * Test Item Value Reference Range Interpretation Comme nts POC ARTERIAL BLOOD GAS PH (test code = POCPHA) 7.348 7.35-7.45 L POC ARTERIAL BLOOD GAS PCO2 (test code = NPCHGK5O) 64.2 mmHg 35.0-45 HH POC TCO2 ARTERIAL (test code = POCTCO2) 37.3 22-29 H POC ARTERIAL BLOOD GAS PO2 (test code = FHEVO1T) 79.5 mmHg 80-100.0 L POC HCO3 ARTERIAL (test code = QACPPF0C) 35.3 MMOL/L 22.0-26.0 HH POC BASE EXCESS (test code = POCBEA) 9.7 MMOL/L See_Comment H [Automated messa ge] The system which generated this result transmitted reference range: 0-+/-4. The reference range was not used to interpret this result as normal/abnormal. POC O2 SATURATION (test code = POCO2S) 94.4 % 90-100 N FIO2 (test code = FIO2A) 40 % PaO2/FiO2 (test code = PZF9MZL2) 198.75 mm/Hg ABG DELIVERY (test code = LEENA) Adult Vent ABG VENT MODE (test code = MODEA) CPAP/PS ABG PEEP (test code = PEEPA) 5 cmH2O ABG PRESSURE SUPPORT (test code = PSABG) 10 cmH2O ABG TEMPERATURE (test code = TEMPA) 97.5 F ABG SITE (test code = SITEA) Art Line EDUARDA'S TEST (test code = ALLENS) N/A BASIC METABOLIC [id number] 15:14:00* Test Item Value Reference Range Interpretation [...] = POCGLU) 143 MG/DL 70-110 H HEMOGLOBIN [id number] 15:14:00* Test Item Value Reference Range Interpretation Comme nts HEMOGLOBIN ABG (test code = HGB/ABG) 6.3 G/DL 12.5-16.9 L [id number] 15:14:00* Test Item Value Reference Range Interpretation Comme nts HEMATOCRIT (test code = HCT/ABG) 18 % 38-51 L POC LACTIC [id number] 15:14:00* Test Item Value Reference Range Interpretation [facility] POC LACTIC ACID (test code = POCLAC) 2.7 mmol/l 0.9-1.7 H PROTHROMBIN [id number] 15:01:00* Test Item Value Reference Range [facility]ation [facility] (test code = [...] prevent recurrent infarct). COMMENTS: On arrivalTHROMBOPLASTIN TIME [id number] 15:01:00* Test Item Value Reference Range Interpretation [facility] THROMBOPLASTIN TIME PARTIAL (test code = PTT) 35.2 Seconds 25.0-39.5 N Therapeutic Rang e: 58.8 - 96.0 Seconds Effective 09/04/2024 COMMENTS: On arrivalCBC W/AUTO [id number] 14:49:00* Test Item Value Reference Range Interpretation [facility] WHITE BLOOD CELL (test code = WBC) 9.6 x10 3/uL 4.5-11.0 N RED BLOOD CELL (test code = RBC) 2.19 x10 6/uL 4.00-5.60 L HEMOGLOBIN (test code = HGB) 6.2 g/dL 12.5-16.9 LL Critical result called to Olga HIDALGO [id number] at 1449 10/21/24Nurse read back result and tech confirmed [...] 3/uL 0.0-0.1 N COMMENTS: On arrivalBASIC METABOLIC [id number] 14:34:00* Test Item Value Reference Range Interpretation [...] = POCGLU) 159 MG/DL 70-110 H HEMOGLOBIN [id number] 14:34:00* Test Item Value Reference Range Interpretation Comme nts HEMOGLOBIN ABG (test code = HGB/ABG) 6.9 G/DL 12.5-16.9 L [id number] 14:34:00* Test Item Value Reference Range Interpretation Comme nts HEMATOCRIT (test code = HCT/ABG) 20 % 38-51 L POC ARTERIAL BLOOD [id number] 14:34:00* Test Item Value Reference Range Interpretation Comme nts POC ARTERIAL BLOOD GAS PH (test code = POCPHA) 7.367 7.35-7.45 N POC ARTERIAL BLOOD GAS PCO2 (test code = IEGHNO2Z) 50.6 mmHg 35.0-45 HH POC TCO2 ARTERIAL (test code = POCTCO2) 30.6 22-29 H POC ARTERIAL BLOOD GAS PO2 (test code = GYURP1Q) 127.8 mmHg 80-100.0 H POC HCO3 ARTERIAL (test code = ADPDME9Z) 29.1 MMOL/L 22.0-26.0 HH POC BASE EXCESS (test code = POCBEA) 3.8 MMOL/L See_Comment N [Automated [employer] ge] The system which generated this result transmitted reference range: 0-+/-4. The reference range was not used to interpret this result as normal/abnormal. POC O2 SATURATION (test code = POCO2S) 98.7 % 90-100 N FIO2 (test code = FIO2A) 50 % PaO2/FiO2 (test code = GDA0WRY8) 255.60 mm/Hg ABG DELIVERY (test code = [...] EDUARDA'S TEST (test code = ALLENS) N/A [id number] 14:06:00* Test Item Value Reference Range Interpretation Comme nts ACT-ISTAT (test code = ACTI) 124 SEC 74-137 N Performed by cer yesika pipe machine operator at [facility] POC ARTERIAL BLOOD [id number] 13:59:00* Test Item Value Reference Range Interpretation Comme nts POC ARTERIAL BLOOD GAS PH (test code = POCPHA) 7.337 7.35-7.45 L POC ARTERIAL BLOOD GAS PCO2 (test code = BFAKRS5C) 43.3 mmHg 35.0-45 N POC TCO2 ARTERIAL (test code = POCTCO2) 24.5 22-29 N POC ARTERIAL BLOOD GAS PO2 (test code = VGQSW0S) 392.1 mmHg 80-100.0 HH POC HCO3 ARTERIAL (test code = JZKTUJ2Y) 23.2 MMOL/L 22.0-26.0 N POC BASE EXCESS (test code = POCBEA) -2.5 MMOL/L See_Comment L [Automated messa ge] The system which generated this result transmitted reference range: 0-+/-4. The reference range was not used to interpret this result as normal/abnormal. POC O2 SATURATION (test code = POCO2S) 100.0 % 90-100 N BASIC METABOLIC [id number] 13:59:00* Test Item Value Reference Range Interpretation [...] = POCGLU) 170 MG/DL 70-110 H HEMOGLOBIN [id number] 13:59:00* Test Item Value Reference Range Interpretation Comme nts HEMOGLOBIN ABG (test code = HGB/ABG) 6.7 G/DL 12.5-16.9 L [id number] 13:59:00* Test Item Value Reference Range Interpretation Comme nts HEMATOCRIT (test code = HCT/ABG) 20 % 38-51 L POC LACTIC [id number] 13:59:00* Test Item Value Reference Range Interpretation Comme nts POC LACTIC ACID (test code = POCLAC) 2.0 mmol/l 0.9-1.7 H [id number] 13:43:00* Test Item Value Reference Range Interpretation Comme nts ACT-ISTAT (test code = ACTI) 117 SEC 74-137 N Performed by cer tified pipe machine operator at [facility] POC ARTERIAL BLOOD [id number] 13:37:00* Test Item Value Reference Range Interpretation Comme nts POC ARTERIAL BLOOD GAS PH (test code = POCPHA) 7.302 7.35-7.45 L POC ARTERIAL BLOOD GAS PCO2 (test code = LUVSJY0Q) 39.2 mmHg 35.0-45 N POC TCO2 ARTERIAL (test code = POCTCO2) 20.6 22-29 L POC ARTERIAL BLOOD GAS PO2 (test code = FIZBD0Z) 354.2 mmHg 80-100.0 HH POC HCO3 ARTERIAL (test code = SYHXTL9R) 19.4 MMOL/L 22.0-26.0 L POC BASE EXCESS (test code = POCBEA) -6.4 MMOL/L See_Comment L [Automated messa ge] The system which generated this result transmitted reference range: 0-+/-4. The reference range was not used to interpret this result as normal/abnormal. POC O2 SATURATION (test code = POCO2S) 99.9 % 90-100 N BASIC METABOLIC [id number] 13:37:00* Test Item Value Reference Range Interpretation [...] = POCGLU) 184 MG/DL 70-110 H HEMOGLOBIN [id number] 13:37:00* Test Item Value Reference Range Interpretation Comme nts HEMOGLOBIN ABG (test code = HGB/ABG) 5.9 G/DL 12.5-16.9 L [id number] 13:37:00* Test Item Value Reference Range Interpretation Comme nts HEMATOCRIT (test code = HCT/ABG) 17 % 38-51 L POC LACTIC [id number] 13:37:00* Test Item Value Reference Range Interpretation Comme nts POC LACTIC ACID (test code = POCLAC) 2.3 mmol/l 0.9-1.7 H [id number] 13:24:00* Test Item Value Reference Range Interpretation Comme nts ACT-ISTAT (test code = ACTI) 481 SEC 74-137 H Performed by cer yesika pipe machine operator at [facility] POC ARTERIAL BLOOD [id number] 13:12:00* Test Item Value Reference Range Interpretation Comme nts POC ARTERIAL BLOOD GAS PH (test code = POCPHA) 7.445 7.35-7.45 N POC ARTERIAL BLOOD GAS PCO2 (test code = OKCTFR7B) 36.3 mmHg 35.0-45 N POC TCO2 ARTERIAL (test code = POCTCO2) 26.0 22-29 N POC ARTERIAL BLOOD GAS PO2 (test code = XBEZA1O) 487.9 mmHg 80-100.0 HH POC HCO3 ARTERIAL (test code = MDLLFS1E) 24.9 MMOL/L 22.0-26.0 N POC BASE EXCESS (test code = POCBEA) 0.8 MMOL/L See_Comment N [Automated messa ge] The system which generated this result transmitted reference range: 0-+/-4. The reference range was not used to interpret this result as normal/abnormal. POC O2 SATURATION (test code = POCO2S) 100.0 % 90-100 N BASIC METABOLIC [id number] 13:12:00* Test Item Value Reference Range Interpretation [...] = POCGLU) 180 MG/DL 70-110 H HEMOGLOBIN [id number] 13:12:00* Test Item Value Reference Range Interpretation Comme nts HEMOGLOBIN ABG (test code = HGB/ABG) 6.3 G/DL 12.5-16.9 L [id number] 13:12:00* Test Item Value Reference Range Interpretation Comme nts HEMATOCRIT (test code = HCT/ABG) 18 % 38-51 L POC LACTIC [id number] 13:12:00* Test Item Value Reference Range Interpretation Comme nts POC LACTIC ACID (test code = POCLAC) 2.3 mmol/l 0.9-1.7 H [id number] 12:55:00* Test Item Value Reference Range Interpretation Comme nts ACT-ISTAT (test code = ACTI) 561 SEC 74-137 H Performed by cer tified pipe machine operator at [facility] POC ARTERIAL BLOOD [id number] 12:47:00* Test Item Value Reference Range Interpretation Comme nts POC ARTERIAL BLOOD GAS PH (test code = POCPHA) 7.386 7.35-7.45 N POC ARTERIAL BLOOD GAS PCO2 (test code = XDAZOL6L) 38.2 mmHg 35.0-45 N POC TCO2 ARTERIAL (test code = POCTCO2) 24.1 22-29 N POC ARTERIAL BLOOD GAS PO2 (test code = KRBQC4Z) 479.0 mmHg 80-100.0 HH POC HCO3 ARTERIAL (test code = FRQXDC2T) 22.9 MMOL/L 22.0-26.0 N POC BASE EXCESS (test code = POCBEA) -1.9 MMOL/L See_Comment L [Automated messa ge] The system which generated this result transmitted reference range: 0-+/-4. The reference range was not used to interpret this result as normal/abnormal. POC O2 SATURATION (test code = POCO2S) 100.0 % 90-100 N BASIC METABOLIC [id number] 12:47:00* Test Item Value Reference Range Interpretation [...] = POCGLU) 163 MG/DL 70-110 H HEMOGLOBIN [id number] 12:47:00* Test Item Value Reference Range Interpretation Comme nts HEMOGLOBIN ABG (test code = HGB/ABG) 6.9 G/DL 12.5-16.9 L [id number] 12:47:00* Test Item Value Reference Range Interpretation Comme nts HEMATOCRIT (test code = HCT/ABG) 20 % 38-51 L POC LACTIC [id number] 12:47:00* Test Item Value Reference Range Interpretation Comme nts POC LACTIC ACID (test code = POCLAC) 1.5 mmol/l 0.9-1.7 N [id number] 12:33:00* Test Item Value Reference Range Interpretation Comme nts ACT-ISTAT (test code = ACTI) 809 SEC 74-137 H Performed by cer tified pipe machine operator at [facility] POC ARTERIAL BLOOD [id number] 12:22:00* Test Item Value Reference Range Interpretation Comme nts POC ARTERIAL BLOOD GAS PH (test code = POCPHA) 7.320 7.35-7.45 L POC ARTERIAL BLOOD GAS PCO2 (test code = MHYKFP0U) 52.2 mmHg 35.0-45 HH POC TCO2 ARTERIAL (test code = POCTCO2) 28.5 22-29 N POC ARTERIAL BLOOD GAS PO2 (test code = QSHEK2X) 494.4 mmHg 80-100.0 HH POC HCO3 ARTERIAL (test code = RJQUOI0F) 26.9 MMOL/L 22.0-26.0 H POC BASE EXCESS (test code = POCBEA) 0.5 MMOL/L See_Comment N [Automated messa ge] The system which generated this result transmitted reference range: 0-+/-4. The reference range was not used to interpret this result as normal/abnormal. POC O2 SATURATION (test code = POCO2S) 100.0 % 90-100 N BASIC METABOLIC [id number] 12:22:00* Test Item Value Reference Range Interpretation [...] = POCGLU) 171 MG/DL 70-110 H HEMOGLOBIN [id number] 12:22:00* Test Item Value Reference Range Interpretation Comme nts HEMOGLOBIN ABG (test code = HGB/ABG) 7.5 G/DL 12.5-16.9 L [id number] 12:22:00* Test Item Value Reference Range Interpretation Comme nts HEMATOCRIT (test code = HCT/ABG) 22 % 38-51 L POC LACTIC [id number] 12:22:00* Test Item Value Reference Range Interpretation Comme nts POC LACTIC ACID (test code = POCLAC) 1.6 mmol/l 0.9-1.7 N [id number] 12:07:00* Test Item Value Reference Range Interpretation Comme nts ACT-ISTAT (test code = ACTI) 395 SEC 74-137 H Performed by cer tified pipe machine operator at [facility] [id number] 11:23:00* Test Item Value Reference Range Interpretation Comme nts ACT-ISTAT (test code = ACTI) 579 SEC 74-137 H Performed by cer [place] pipe machine operator [facility] [place] [facility] [facility] POC ARTERIAL BLOOD [id number] 11:15:00* Test Item Value Reference Range Interpretation Comme nts POC ARTERIAL BLOOD GAS PH (test code = POCPHA) 7.206 7.35-7.45 LL POC ARTERIAL BLOOD GAS PCO2 (test code = CLTYXE9U) 64.2 mmHg 35.0-45 HH POC TCO2 ARTERIAL (test code = POCTCO2) 27.5 22-29 N POC ARTERIAL BLOOD GAS PO2 (test code = BMVNX9L) 491.5 mmHg 80-100.0 HH POC HCO3 ARTERIAL (test code = WAEXXK9O) 25.5 MMOL/L 22.0-26.0 N POC BASE EXCESS (test code = POCBEA) -3.3 MMOL/L See_Comment L [Automated messa ge] The system which generated this result transmitted reference range: 0-+/-4. The reference range was not used to interpret this result as normal/abnormal. POC O2 SATURATION (test code = POCO2S) 100.0 % 90-100 N BASIC METABOLIC [id number] 11:15:00* Test Item Value Reference Range Interpretation [...] = POCGLU) 139 MG/DL 70-110 H HEMOGLOBIN [id number] 11:15:00* Test Item Value Reference Range Interpretation Comme nts HEMOGLOBIN ABG (test code = HGB/ABG) 11.3 G/DL 12.5-16.9 L [id number] 11:15:00* Test Item Value Reference Range Interpretation Comme nts HEMATOCRIT (test code = HCT/ABG) 33 % 38-51 L POC LACTIC [id number] 11:15:00* Test Item Value Reference Range Interpretation Comme nts POC LACTIC ACID (test code = POCLAC) < 0.3 mmol/l 0.9-1.7 L [id number] 10:36:00* Test Item Value Reference Range Interpretation Comme nts ACT-ISTAT (test code = ACTI) 147 SEC 74-137 H Performed by cer tified pipe machine operator at [facility] POC ARTERIAL BLOOD [id number] 10:35:00* Test Item Value Reference Range Interpretation Comme nts POC ARTERIAL BLOOD GAS PH (test code = POCPHA) 7.406 7.35-7.45 N POC ARTERIAL BLOOD GAS PCO2 (test code = KQVOJG3A) 34.5 mmHg 35.0-45 L POC TCO2 ARTERIAL (test code = POCTCO2) 22.7 22-29 N POC ARTERIAL BLOOD GAS PO2 (test code = HEKFG6O) 554.3 mmHg 80-100.0 HH POC HCO3 ARTERIAL (test code = HEXJNK5I) 21.6 MMOL/L 22.0-26.0 L POC BASE EXCESS (test code = POCBEA) -2.4 MMOL/L See_Comment L [Automated messa ge] The system which generated this result transmitted reference range: 0-+/-4. The reference range was not used to interpret this result as normal/abnormal. POC O2 SATURATION (test code = POCO2S) 100.0 % 90-100 N BASIC METABOLIC [id number] 10:35:00* Test Item Value Reference Range Interpretation [...] = POCGLU) 107 MG/DL 70-110 N HEMOGLOBIN [id number] 10:35:00* Test Item Value Reference Range Interpretation Comme nts HEMOGLOBIN ABG (test code = HGB/ABG) 13.3 G/DL 12.5-16.9 N [id number] 10:35:00* Test Item Value Reference Range Interpretation Comme nts HEMATOCRIT (test code = HCT/ABG) 39 % 38-51 N POC LACTIC [id number] 10:35:00* Test Item Value Reference Range Interpretation Comme nts POC LACTIC ACID (test code = POCLAC) < 0.3 mmol/l 0.9-1.7 L PLATELET [id number] 10:18:00* Test Item Value Reference Range Interpretation [...] % 0-11 H DRUGS OF ABUSE SCREEN [id number] 09:42:00* Test Item Value Reference Range Interpretation [...] used for non-medical purposes. PLT RESPONSE TO [id number] 08:29:00* Test Item Value Reference Range Interpretation [...] be rejected by our instrumentation. BASIC METABOLIC [id number] 07:40:00* Test Item Value Reference Range Interpretation [...] code = CA) 10.0 mg/dL 8.0-10.5 N [id number] 07:40:00* Test Item Value Reference Range Interpretation Comme nts MAGNESIUM (test code = MAG) 2.06 mg/dL 1.6-2.6 N CBC W/AUTO [id number] 07:15:00* Test Item Value Reference Range Interpretation [...] 0.00 x10 3/uL 0.0-0.1 N BASIC METABOLIC [id number] 09:57:00* Test Item Value Reference Range Interpretation [...] code = CA) 10.0 mg/dL 8.0-10.5 N [id number] 09:57:00* Test Item Value Reference Range Interpretation Comme nts MAGNESIUM (test code = MAG) 2.13 mg/dL 1.6-2.6 N PLT RESPONSE TO [id number] 07:58:00* Test Item Value Reference Range Interpretation Comme nts PLT RESPONSE TO PLAVIX (test code = PLAVRES) 109 PRU 182-335 L Values <18 0 PRU are specific evidence of a P2Y12 inhibitoreffect. Testing can only be performed if patient sample values are within the following ranges: Hematocrit 33-52%, Platelet Count 119,000-502,000/uL. Patient values outside of theseranges will be rejected by our instrumentation. PLATELET [id number] 07:49:00* Test Item Value Reference Range Interpretation [...] AAINH) 85.6 % 0-11 H CBC W/AUTO [id number] 07:29:00* Test Item Value Reference Range Interpretation [...] 0.00 x10 3/uL 0.0-0.1 N CBC W/AUTO [id number] 07:18:00* Test Item Value Reference Range Interpretation [...] 0.00 x10 3/uL 0.0-0.1 N BASIC METABOLIC [id number] 06:44:00* Test Item Value Reference Range Interpretation [...] code = CA) 9.6 mg/dL 8.0-10.5 N [id number] 06:44:00* Test Item Value Reference Range Interpretation Comme nts MAGNESIUM (test code = MAG) 1.97 mg/dL 1.6-2.6 N PLT RESPONSE TO [id number] 18:12:00* Test Item Value Reference Range Interpretation [...] be rejected by our instrumentation. CBC W/AUTO [id number] 05:59:00* Test Item Value Reference Range Interpretation [...] NRBC#) 0.00 x10 3/uL 0.0-0.1 N PROTHROMBIN [id number] 05:54:00* Test Item Value Reference [facility] (test code = [...] Infarction (to prevent recurrent infarct). THROMBOPLASTIN TIME [id number] 05:54:00* Test Item Value Reference Range Interpretation [facility] THROMBOPLASTIN TIME PARTIAL (test code = PTT) 28.2 Seconds 25.0-39.5 N Therapeutic Rang e: 58.8 - 96.0 Seconds Effective 09/04/2024 [id number] 05:54:00* Test Item Value Reference Range Interpretation [facility] HGBA1C% (test code = HGBA1C%) 5.3 %A1C 4.8-6.0 N COMPREHENSIVE METABOLIC [id number] 05:47:00* Test Item Value Reference Range Interpretation [facility] SODIUM (test code = NA) 140 [...] 20-125 N UA RFLX MICR CULT IF [id number] 00:24:00* Test Item Value Reference Range Interpretation [...] Flank Pain Dysuria/FrequencySpecimen Description: CLEAN CATCHTROP-I HIGH [id number] 08:02:00* Test Item Value Reference Range Interpretation [...] URL. These results were obtained using Siemens Playboox IM TnIHreagent. Results from different methodologies should not becompared to one another as quantitative results and URLs mayvary by method. BASIC METABOLIC [id number] 07:16:00* Test Item Value Reference Range Interpretation [...] = LDL) 64.0 mg/dL 0-100 N <100 UESVRGW38 0-129 NEAR OPTIMAL/ABOVE [id number] DGOWIQQZAT230-934 HIGH>FE=944 VERY HIGH*Guidelines provided by the National Cholesterol EducationProgram Adult Treatment Panel III COMMENTS: To be done morning of Heart CathCBC W/AUTO [id number] 06:52:00* Test Item Value Reference Range Interpretation [...] be done morning of Heart CathTROP-I HIGH [id number] 02:21:00* Test Item Value Reference Range Interpretation Comme [facility] TROP-I HIGH SENSITIVITY (test code = TROPIHS) [...] and URLs mayvary by method. TROP-I HIGH [id number] 01:29:00* Test Item Value Reference Range Interpretation Comme [facility] TROP-I HIGH SENSITIVITY (test code = TROPIHS) [...] mayvary by method. DRUGS OF ABUSE SCREEN [id number] 23:45:00* Test Item Value Reference Range Interpretation [...] be used for non-medical purposes. TROP-I HIGH [id number] 22:49:00* Test Item Value Reference Range Interpretation [...] URL. These results were obtained using Siemens AtellInspherion IM TnIHreagent. Results from different methodologies should not becompared to one another as quantitative results and URLs mayvary by method. LIPOPROTEIN [id number] 21:58:00* Test Item Value Reference Range Interpretation [facility] LIPOP[facility] LDL (test code = LDL) 55.0 mg/dL 0-100 N <100 OMUJRMQ87 0-129 NEAR OPTIMAL/ABOVE [id number] JTARYWICQR447-933 HIGH>UK=854 VERY HIGH*Guidelines provided by the National Cholesterol EducationProgram Adult Treatment Panel III PROTHROMBIN [id number] 21:47:00* Test Item Value Reference Range Interpretation [facility] PATIENT (test code = [...] Infarction (to prevent recurrent infarct). THROMBOPLASTIN TIME [id number] 21:47:00* Test Item Value Reference Range Interpretation [facility] THROMBOPLASTIN TIME PARTIAL (test code = PTT) 30.9 Seconds 25.0-39.5 N Therapeutic Rang e: 58.8 - 96.0 Seconds Effective 09/04/2024 POCT GLUCOSE (AUTOMATED)2024-06-14 03:53:47* Test Item Value Reference Range Interpretation [facility] POCT GLU (test code = 0906695112) 87 mg/dL 70-110 Lab Interpretation (test cod e = 02804-9) Normal [facility] Glucose(Age >30days)2024-06-14 03:52:00* Test Item Value Reference Range Interpretation Comme nts POCT Glu (age>30days) (test code = 3342) 87 mg/dL 70-110 Lab Interpretation (test cod e = 82843-1) [facility] [id number] 04:41:58* Test Item Value Reference Range Interpretation Comme nts VIT B12 (test code = 7497603846) 288 pg/mL 240-930 JOCELIN (test code = JOCELIN) Biotin has been reported to cause a positive bias, interpret results relative to patient's use of biotin. Lab Interpretation (test code = 84093-6) [facility] [id number] 03:06:24 * Test Item Value Reference Range Interpretation Comme nts TSH (test code = 3360207785) See_Comment Biotin has been reported to cause a negative bias, interpret results relative to patient's use of biotin. [Automated message] The system which generated this result transmitted reference range: 0.45 - 4.70 mIU/L. The reference range was not used to interpret this result as normal/abnormal. Lab Interpretation (test code = 53097-8) [facility] [id number] 03:06:24 * Test Item Value Reference Range Interpretation Comme nts TSH (test code = 7099706701) See_Comment Biotin has been reported to cause a negative bias, interpret results relative to patient's use of biotin. [Automated message] The system which generated this result transmitted reference range: 0.45 - 4.70 mIU/L. The reference range was not used to interpret this result as normal/abnormal. Lab Interpretation (test code = 56695-3) [facility]OL2022-[facility] 11:56:29 ALCOHOL<10mg/dL10/01/2022 5:56 [facility] Greater than or equal to 80 mg/dL. NOTE: Whole blood values are approximately 10% to 15% lower than serum and plasma.[facility] 11:56:29ALCOHOL<10mg/dL10/01/2022 5:56 AM [facility] CAMPUSToxic Greater than or equal to 80 mg/dL. NOTE: Whole blood values are approximately 10% to 15% lower than serum and pl asma.[facility] METABOLIC PANEL (NA, K, CL, CO2, GLUCOSE, BUN, CREATININE, CA)2022-10-01 11:56:24* Test Item Value Reference Range Interpretation Comme nts NA (test code = 8200896127) 136 mmol/L 135-145 K (test code = 0514116025) 4.1 mmol/L 3.5-5.0 CL (test code = 4227853719) 111 mmol/L 98-108 H CO2 TOTAL (test code = 1056390743) 26 mmol/L 23-31 AGAP (test code = 2940106626) 2-16 L BUN (test code = 5349043183) 16 mg/dL 7-23 GLUCOSE (test code = 2040865701) 124 mg/dL 70-110 H CREATININE (test code = 3457360278) 0.90 mg/dL 0.60-1.25 CALCIUM (test code = 4981484964) 7.3 mg/dL 8.6-10.6 L eGFR (test code = 5552688587) mL/min/1.73m2 JOCELIN (test code = JOCELIN) Association [...] imaging tests). Lab Interpretation (test code = 20207-9) Abnormal [facility] METABOLIC PANEL (NA, K, CL, CO2, GLUCOSE, BUN, CREATININE, CA)2022-10-01 11:56:24* Test Item Value Reference Range Interpretation Comme nts NA (test code = 1038466185) 136 mmol/L 135-145 K (test code = 2011374491) 4.1 mmol/L 3.5-5.0 CL (test code = 0366306802) 111 mmol/L 98-108 H CO2 TOTAL (test code = 2471389273) 26 mmol/L 23-31 AGAP (test code = 4942996785) 2-16 L BUN (test code = 2191773423) 16 mg/dL 7-23 GLUCOSE (test code = 3869982787) 124 mg/dL 70-110 H CREATININE (test code = 2254186841) 0.90 mg/dL 0.60-1.25 CALCIUM (test code = 3077401581) 7.3 mg/dL 8.6-10.6 L eGFR (test code = 7292004619) mL/min/1.73m2 JOCELIN (test code = JOCELIN) Association [...] imaging tests). Lab Interpretation (test code = 39973-9) Abnormal [facility], [id number] 11:43:01* Test Item Value Reference Range Interpretation Comme nts AMMONIA (test code = 2720883954) 10 umol/L - Lab Interpretation (test cod e = 96771-9) Normal [facility], [id number] 11:43:01* Test Item Value Reference Range Interpretation Comme nts AMMONIA (test code = 1648537309) 10 umol/L - Lab Interpretation (test cod e = 16952-2) Normal [facility] WITH OROR2422-09-43 11:28:20* Test Item Value Reference Range Interpretation Comme nts WBC (test code = 6690-2) See_Comment [Automated [employer]] The system which generated this result transmitted reference range: 4.20 - 10.70 10*3/?L. The reference range was not used to interpret this result as normal/abnormal. RBC (test code = 789-8) See_Comment L [Automated [employer]] The system which generated this result transmitted [...] 32.6 g/dL 31.2-35.0 RDW-SD (test code = 03200-9) 46.5 fL 38.5-51.6 RDW-CV (test code = 788-0) 14.5 % 12.1-15.4 PLT (test code = 777-3) See_Comment [Automated [employer] ge] The system which generated this result transmitted reference range: 150 - 328 10*3/?L. The reference range was not used to interpret this result as normal/abnormal. MPV (test code = 27849-6) 9.1 fL 9.8-13.0 L NRBC/100 WBC (test code = 6607146371) See_Comment [Automated UXCam ssage] The system which generated this result transmitted reference range: 0.0 - 10.0 /100 WBCs. The reference range was not used to interpret this result as normal/abnormal. NRBC x10^3 (test code = 1100958074) See_Comment [Automated messa ge] The system which generated this result transmitted reference range: 10*3/?L. The reference range was not used to interpret this result as normal/abnormal. GRAN MAT (NEUT) % (test code = 770-8) 74.3 % IMM GRAN % (test code = 1969547350) 0.50 % LYMPH % (test code = 736-9) 12.5 % MONO % (test code = 5905-5) 10.4 % EOS % (test code = 713-8) 2.1 % BASO % (test code = 706-2) 0.2 % GRAN MAT x10^3(ANC) (test code = 8420520279) 6.49 10*3/uL 1.99-6.95 IMM GRAN x10^3 (test code = 5606158998) 0.04 10*3/uL 0.00-0.06 LYMPH x10^3 (test code = 731-0) 1.09 10*3/uL 1.09-3.23 MONO x10^3 (test code = 742-7) 0.91 10*3/uL 0.36-1.02 EOS x10^3 (test code = 711-2) 0.18 10*3/uL 0.06-0.53 BASO x10^3 (test code = 704-7) 0.01-0.09 Lab Interpretation (test code = 67766-2) Abnormal [facility] WITH [id number] 11:28:20* Test Item Value Reference Range Interpretation [...] 32.6 g/dL 31.2-35.0 RDW-SD (test code = 40073-0) 46.5 fL 38.5-51.6 RDW-CV (test code = 788-0) 14.5 % 12.1-15.4 PLT (test code = 777-3) See_Comment [Automated messa ge] The system which generated this result transmitted reference range: 150 - 328 10*3/?L. The reference range was not used to interpret this result as normal/abnormal. MPV (test code = 32076-8) 9.1 fL 9.8-13.0 L NRBC/100 WBC (test code = 2344658009) See_Comment [Automated me ssage] The system which generated this result transmitted reference range: 0.0 - 10.0 /100 WBCs. The reference range was not used to interpret this result as normal/abnormal. NRBC x10^3 (test code = 8734636874) See_Comment [Automated messa ge] The system which generated this result transmitted reference range: 10*3/?L. The reference range was not used to interpret this result as normal/abnormal. GRAN MAT (NEUT) % (test code = 770-8) 74.3 % IMM GRAN % (test code = 1048576248) 0.50 % LYMPH % (test code = 736-9) 12.5 % MONO % (test code = 5905-5) 10.4 % EOS % (test code = 713-8) 2.1 % BASO % (test code = 706-2) 0.2 % GRAN MAT x10^3(ANC) (test code = 8058115008) 6.49 10*3/uL 1.99-6.95 IMM GRAN x10^3 (test code = 1317541777) 0.04 10*3/uL 0.00-0.06 LYMPH x10^3 (test code = 731-0) 1.09 10*3/uL 1.09-3.23 MONO x10^3 (test code = 742-7) 0.91 10*3/uL 0.36-1.02 EOS x10^3 (test code = 711-2) 0.18 10*3/uL 0.06-0.53 BASO x10^3 (test code = 704-7) 0.01-0.09 Lab Interpretation (test code = 48574-3) [facility] Whole [id number] 03:42:49* Test Item Value Reference Range Interpretation Comme nts LACTIC ACID (test code = 7926978400) 1.08 mmol/L 0.50-2.20 Lab Interpretation (test cod e = 79698-0) [facility] [id number] 03:42:49* Test Item Value Reference Range Interpretation Comme nts LACTIC ACID (test code = 2151543913) 1.08 mmol/L 0.50-2.20 Lab Interpretation (test cod e = 79680-2) [facility] LOW [id number] 15:15:22* Test Item Value Reference Range Interpretation Comme nts ACTLR (test code = 6589601271) See_Comment H [Automated messa ge] The system which generated this result transmitted reference range: 89 - 169 Seconds. The reference range was not used to interpret this result as normal/abnormal. Lab Interpretation (test code = 46663-8) [facility] [id number] 15:15:22* Test Item Value Reference Range Interpretation Comme nts ACTLR (test code = 9334097075) See_Comment H [Automated messa ge] The system which generated this result transmitted reference range: 89 - 169 Seconds. The reference range was not used to interpret this result as normal/abnormal. Lab Interpretation (test code = 23193-3) [facility] [id number] 15:15:22* Test Item Value Reference Range Interpretation Comme nts ACTLR (test code = 6379259192) See_Comment H [Automated messa ge] The system which generated this result transmitted reference range: 89 - 169 Seconds. The reference range was not used to interpret this result as normal/abnormal. Lab Interpretation (test code = 00824-5) [facility] [id number] 15:15:22* Test Item Value Reference Range Interpretation Comme nts ACTLR (test code = 3443620123) See_Comment H [Automated messa ge] The system which generated this result transmitted reference range: 89 - 169 Seconds. The reference range was not used to interpret this result as normal/abnormal. Lab Interpretation (test code = 44193-8) [facility] [id number] 15:15:22* Test Item Value Reference Range Interpretation Comme nts ACTLR (test code = 9946500641) See_Comment H [Automated messa ge] The system which generated this result transmitted reference range: 89 - 169 Seconds. The reference range was not used to interpret this result as normal/abnormal. Lab Interpretation (test code = 10114-1) Abnormal [facility]PO[facility] ACT LOW [id number] 15:15:22* Test Item Value Reference Range Interpretation Comme nts ACTLR (test code = 1058225536) See_Comment H [Automated messa ge] The system which generated this result transmitted reference range: 89 - 169 Seconds. The reference range was not used to interpret this result as normal/abnormal. Lab Interpretation (test code = 76475-4) Abnormal [facility] GLUCOSE (AUTOMATED)2022-09-21 22:55:43* Test Item Value Reference Range Interpretation Comme nts POCT GLU (test code = 4527021818) 97 mg/dL 70-110 Lab Interpretation (test cod e = 96125-2) Normal [facility] GLUCOSE (AUTOMATED)2022-09-21 22:55:43* Test Item Value Reference Range Interpretation Comme nts POCT GLU (test code = 6234194647) 97 mg/dL 70-110 Lab Interpretation (test cod e = 56363-1) Normal [facility] GLUCOSE (AUTOMATED)2022-09-21 22:55:43* Test Item Value Reference Range Interpretation Comme nts POCT GLU (test code = 8187082687) 97 mg/dL 70-110 Lab Interpretation (test cod e = 60842-9) Normal [facility] GLUCOSE (AUTOMATED)2022-09-21 22:55:43* Test Item Value Reference Range Interpretation Comme nts POCT GLU (test code = 1151328524) 97 mg/dL 70-110 Lab Interpretation (test cod e = 75233-7) Normal [facility] GLUCOSE (AUTOMATED)2022-09-20 03:42:26* Test Item Value Reference Range Interpretation Comme nts POCT GLU (test code = 4189039129) 160 mg/dL 70-110 H Lab Interpretation (test cod e = 09272-1) Abnormal [facility] GLUCOSE (AUTOMATED)2022-09-20 03:42:26* Test Item Value Reference Range Interpretation Comme nts POCT GLU (test code = 5750454161) 160 mg/dL 70-110 H Lab Interpretation (test cod e = 97746-8) Abnormal [facility] GLUCOSE (AUTOMATED)2022-09-20 03:42:26* Test Item Value Reference Range Interpretation Comme nts POCT GLU (test code = 0968999624) 160 mg/dL 70-110 H Lab Interpretation (test cod e = 58325-5) Abnormal [facility] Arterial Blood Gas.2022-09-18 09:01:22* Test Item Value Reference Range Interpretation Comme nts PH (test code = 2) 7.35-7.45 PCO2 (test code = 3183803442) See_Comment [Automated messa ge] The system which generated this result transmitted reference range: 35 - 45 mmHg. The reference range was not used to interpret this result as normal/abnormal. PO2 (test code = 1937325812) See_Comment L [Automated messa ge] The system which generated this result transmitted reference range: 80 - 100 mmHg. The reference range was not used to interpret this result as normal/abnormal. HCO3 (test code = 1918888697) See_Comment [Automated messa ge] The system which generated this result transmitted reference range: 22 - 26 mEq/L. The reference range was not used to interpret this result as normal/abnormal. BE (test code = 6389021526) See_Comment [Automated messa ge] The system which generated this result transmitted reference range: -3.0 - 3.0 mEq/L. The reference range was not used to interpret this result as normal/abnormal. Lab Interpretation (test code = 92760-8) Abnormal [facility] Arterial Blood Gas.2022-09-18 09:01:22* Test Item Value Reference Range Interpretation Comme nts PH (test code = 2) 7.35-7.45 PCO2 (test code = 7469101499) See_Comment [Automated messa ge] The system which generated this result transmitted reference range: 35 - 45 mmHg. The reference range was not used to interpret this result as normal/abnormal. PO2 (test code = 0096766294) See_Comment L [Automated messa ge] The system which generated this result transmitted reference range: 80 - 100 mmHg. The reference range was not used to interpret this result as normal/abnormal. HCO3 (test code = 7821094634) See_Comment [Automated messa ge] The system which generated this result transmitted reference range: 22 - 26 mEq/L. The reference range was not used to interpret this result as normal/abnormal. BE (test code = 7647661901) See_Comment [Automated messa ge] The system which generated this result transmitted reference range: -3.0 - 3.0 mEq/L. The reference range was not used to interpret this result as normal/abnormal. Lab Interpretation (test code = 59647-4) Abnormal [facility] Arterial Blood Gas.2022-09-18 09:01:22* Test Item Value Reference Range Interpretation Comme nts PH (test code = 2) 7.35-7.45 PCO2 (test code = 2943879370) See_Comment [Automated messa ge] The system which generated this result transmitted reference range: 35 - 45 mmHg. The reference range was not used to interpret this result as normal/abnormal. PO2 (test code = 4828319928) See_Comment L [Automated messa ge] The system which generated this result transmitted reference range: 80 - 100 mmHg. The reference range was not used to interpret this result as normal/abnormal. HCO3 (test code = 4382881028) See_Comment [Automated messa ge] The system which generated this result transmitted reference range: 22 - 26 mEq/L. The reference range was not used to interpret this result as normal/abnormal. BE (test code = 3116118371) See_Comment [Automated messa ge] The system which generated this result transmitted reference range: -3.0 - 3.0 mEq/L. The reference range was not used to interpret this result as normal/abnormal. Lab Interpretation (test code = 03655-4) Abnormal [facility] [place] Arterial Blood Gas.2022-09-18 09:01:22* Test Item Value Reference Range Interpretation Comme nts PH (test code = 2) 7.35-7.45 PCO2 (test code = 6278763151) See_Comment [Automated messa ge] The system which generated this result transmitted reference range: 35 - 45 mmHg. The reference range was not used to interpret this result as normal/abnormal. PO2 (test code = 1919164940) See_Comment L [Automated messa ge] The system which generated this result transmitted reference range: 80 - 100 mmHg. The reference range was not used to interpret this result as normal/abnormal. HCO3 (test code = 6831237476) See_Comment [Automated messa ge] The system which generated this result transmitted reference range: 22 - 26 mEq/L. The reference range was not used to interpret this result as normal/abnormal. BE (test code = 2343568542) See_Comment [Automated messa ge] The system which generated this result transmitted reference range: -3.0 - 3.0 mEq/L. The reference range was not used to interpret this result as normal/abnormal. Lab Interpretation (test code = 51615-8) Abnormal [facility] GLUCOSE (AUTOMATED)2022-09-17 06:37:01* Test Item Value Reference Range Interpretation Comme nts POCT GLU (test code = 7549617607) 262 mg/dL 70-110 H Lab Interpretation (test cod e = 74108-8) Abnormal [facility] GLUCOSE (AUTOMATED)2022-09-17 06:37:01* Test Item Value Reference Range Interpretation Comme nts POCT GLU (test code = 4846051520) 262 mg/dL 70-110 H Lab Interpretation (test cod e = 98399-6) Abnormal [facility] GLUCOSE (AUTOMATED)2022-09-17 06:37:01* Test Item Value Reference Range Interpretation Comme nts POCT GLU (test code = 1381439571) 262 mg/dL 70-110 H Lab Interpretation (test cod e = 30003-9) Abnormal [facility] GLUCOSE (AUTOMATED)2022-09-17 06:37:01* Test Item Value Reference Range Interpretation Comme nts POCT GLU (test code = 5399523086) 262 mg/dL 70-110 H Lab Interpretation (test cod e = 77241-0) [facility] 19:42:44* Test Item Value Reference Range Interpretation Comme nts Height (test code = 2887390989) in Weight (test code = 6099304303) lbs Systolic BP (test code = 8462657107) mmHg Diastolic BP (test code = 3399533092) mmHg Heart Rate (test code = 9312420921) bpm BSA (test code = 5925270028) 1.87 m2 LVOT diameter (test code = 2429301084) 2.04 cm LVOT area (test code = 4104921845) 3.30 cm2 LA size (test code = 6680363943) 4.7 cm Ao root diam (test code = 7944242996) 2.70 cm Aortic root (test code = 6880329759) 2.7 cm Ao root annulus (test code = 4068018499) 2.7 cm MV Peak E Kim (test code = 2800608971) 99.4 cm/s MV Peak A Kim (test code = 1395278803) 60.5 cm/s E/A ratio (test code = 9510493638) ratio MV valve area p 1/2 method (test code = 7186649592) 7.30 cm2 MV dec slope (test code = 8327962530) 961.50 cm/s2 MV P1/2t max kim (test code = 6104201192) 98.40 cm/s MV Prop V (test code = 8469737912) 23.50 cm/s LVOT stroke volume (test code = 2869079856) 52.80 cm3 LVOT peak kim (test code = 7846592857) 99.3 cm/s LVOT mn grad (test code = 6072743909) mmHg AV LVOT peak gradient (test code = 7080509341) mmHg LVOT peak VTI (test code = 8997347723) 16.1 cm LV V1 mean (test code = 7727799346) 60.90 cm/s Aortic valve mean velocity (test code = 3894726424) 67.7 cm/s Ao peak kim (test code = 0027104356) 114.5 cm/s Ao VTI (test code = 9781800031) 17.9 cm AV area by cont VTI (test code = 8699792941) 3.0 cm2 AV area peak kim (test code = 9047734526) 2.8 cm2 Ao max PG (test code = 3671113593) 5.20 mm[Hg] AV peak gradient (test code = 3306095654) mmHg AV valve area (test code = 4579005630) 3.00 cm2 AV mean gradient (test code = 9529301208) mmHg TR Peak Kim (test code = 6497796565) 226.8 cm/s Triscuspid Valve Regurgitation Peak Gradient (test code = 4287506693) mmHg LAV(MOD-sp2) (test code = 9819401724) 106.60 mL Tapse (test code = 9921641935) 1.94 cm Radiology Study observation (narrative) (test code = 43115-1) JOCELIN (test code = JOCELIN) ?Left?Ventricle: Left [...] A complete echocardiogram was performed using 2D. [facility] 19:42:44* Test Item Value Reference Range Interpretation Comme nts Height (test code = 3384708384) in Weight (test code = 8556694231) lbs Systolic BP (test code = 5221091061) mmHg Diastolic BP (test code = 8325610500) mmHg Heart Rate (test code = 8660383281) bpm BSA (test code = 9794156307) 1.87 m2 LVOT diameter (test code = 7095438353) 2.04 cm LVOT area (test code = 8171149642) 3.30 cm2 LA size (test code = 8823382397) 4.7 cm Ao root diam (test code = 4055217046) 2.70 cm Aortic root (test code = 8556718911) 2.7 cm Ao root annulus (test code = 6718396735) 2.7 cm MV Peak E Kim (test code = 8080313556) 99.4 cm/s MV Peak A Kim (test code = 2286350583) 60.5 cm/s E/A ratio (test code = 6366623354) ratio MV valve area p 1/2 method (test code = 7272224926) 7.30 cm2 MV dec slope (test code = 6595341498) 961.50 cm/s2 MV P1/2t max kim (test code = 5845791176) 98.40 cm/s MV Prop V (test code = 9453022722) 23.50 cm/s LVOT stroke volume (test code = 0374702031) 52.80 cm3 LVOT peak kim (test code = 4697613560) 99.3 cm/s LVOT mn grad (test code = 6757599588) mmHg AV LVOT peak gradient (test code = 7724426451) mmHg LVOT peak VTI (test code = 5343053270) 16.1 cm LV V1 mean (test code = 1080041430) 60.90 cm/s Aortic valve mean velocity (test code = 2658737621) 67.7 cm/s Ao peak kim (test code = 6163652813) 114.5 cm/s Ao VTI (test code = 4936503619) 17.9 cm AV area by cont VTI (test code = 3918549966) 3.0 cm2 AV area peak kim (test code = 4038657951) 2.8 cm2 Ao max PG (test code = 2688429247) 5.20 mm[Hg] AV peak gradient (test code = 7059483188) mmHg AV valve area (test code = 0815890249) 3.00 cm2 AV mean gradient (test code = 6120608045) mmHg TR Peak Kim (test code = 4379709411) 226.8 cm/s Triscuspid Valve Regurgitation Peak Gradient (test code = 1565717137) mmHg LAV(MOD-sp2) (test code = 3010748079) 106.60 mL Tapse (test code = 8749788503) 1.94 cm Radiology Study observation (narrative) (test code = 00453-4) JOCELIN (test code = JOCELIN) ?Left?Ventricle: Left [...] A complete echocardiogram was performed using 2D. [facility] 19:42:44* Test Item Value Reference Range Interpretation Comme nts Height (test code = 2293547882) in Weight (test code = 0259545563) lbs Systolic BP (test code = 5856858915) mmHg Diastolic BP (test code = 1038965432) mmHg Heart Rate (test code = 5294723673) bpm BSA (test code = 3894061005) 1.87 m2 LVOT diameter (test code = 2382543861) 2.04 cm LVOT area (test code = 7721752375) 3.30 cm2 LA size (test code = 7940486951) 4.7 cm Ao root diam (test code = 9644066962) 2.70 cm Aortic root (test code = 2309182537) 2.7 cm Ao root annulus (test code = 1502828440) 2.7 cm MV Peak E Kim (test code = 9297327344) 99.4 cm/s MV Peak A Kim (test code = 5263077240) 60.5 cm/s E/A ratio (test code = 0564958290) ratio MV valve area p 1/2 method (test code = 8657440850) 7.30 cm2 MV dec slope (test code = 4288587021) 961.50 cm/s2 MV P1/2t max kim (test code = 3073528832) 98.40 cm/s MV Prop V (test code = 5066083845) 23.50 cm/s LVOT stroke volume (test code = 6559733633) 52.80 cm3 LVOT peak kim (test code = 4365412596) 99.3 cm/s LVOT mn grad (test code = 5038402252) mmHg AV LVOT peak gradient (test code = 3357314196) mmHg LVOT peak VTI (test code = 8270130110) 16.1 cm LV V1 mean (test code = 5818655558) 60.90 cm/s Aortic valve mean velocity (test code = 0266221560) 67.7 cm/s Ao peak kim (test code = 4678742107) 114.5 cm/s Ao VTI (test code = 1213315589) 17.9 cm AV area by cont VTI (test code = 9560327107) 3.0 cm2 AV area peak kim (test code = 2317844971) 2.8 cm2 Ao max PG (test code = 1930167492) 5.20 mm[Hg] AV peak gradient (test code = 1664133512) mmHg AV valve area (test code = 8618578152) 3.00 cm2 AV mean gradient (test code = 0848981038) mmHg TR Peak Kim (test code = 3780618427) 226.8 cm/s Triscuspid Valve Regurgitation Peak Gradient (test code = 0863395449) mmHg LAV(MOD-sp2) (test code = 8298200308) 106.60 mL Tapse (test code = 5172959713) 1.94 cm Radiology Study observation (narrative) (test code = 04814-1) JOCELIN (test code = JOCELIN) ?Left?Ventricle: Left [...] A complete echocardiogram was performed using 2D. [facility] [id number] 23:23:07* Test Item Value Reference Range Interpretation Comments TROPONIN I (test code = 6619233102) 3.250 ng/mL See_Comment H [Automated message] The [...] of biotin. Lab Interpretation (test code = 32963-9) Abnormal [facility] [id number] 23:23:07* Test Item Value Reference Range Interpretation Comments TROPONIN I (test code = 4875631623) 3.250 ng/mL See_Comment H [Automated message] The [...] of biotin. Lab Interpretation (test code = 05508-6) Abnormal [facility] [id number] 23:23:07* Test Item Value Reference Range Interpretation Comments TROPONIN I (test code = 3502722363) 3.250 ng/mL See_Comment H [Automated message] The [...] of biotin. Lab Interpretation (test code = 83713-7) Abnormal [facility] [id number] 23:23:07* Test Item Value Reference Range Interpretation Comments TROPONIN I (test code = 5182463643) 3.250 ng/mL See_Comment H [Automated message] The [...] of biotin. Lab Interpretation (test code = 04880-9) Abnormal [facility] [id number] 23:23:07* Test Item Value Reference Range Interpretation Comments TROPONIN I (test code = 7260922831) 3.250 ng/mL See_Comment H [Automated message] The [...] of biotin. Lab Interpretation (test code = 79707-4) Abnormal [facility] [id number] 08:31:08* Test Item Value Reference Range Interpretation Comments TROPONIN I (test code = 3494571167) 5.210 ng/mL See_Comment H [Automated message] The [...] of biotin. Lab Interpretation (test code = 01435-5) Abnormal [facility] [id number] 08:31:08* Test Item Value Reference Range Interpretation Comments TROPONIN I (test code = 3042260621) 5.210 ng/mL See_Comment H [Automated message] The [...] of biotin. Lab Interpretation (test code = 72568-4) Abnormal [facility] [id number] 08:31:08* Test Item Value Reference Range Interpretation Comments TROPONIN I (test code = 8503378652) 5.210 ng/mL See_Comment H [Automated message] The [...] of biotin. Lab Interpretation (test code = 50813-1) Abnormal [facility] [id number] 08:31:08* Test Item Value Reference Range Interpretation Comments TROPONIN I (test code = 9305972462) 5.210 ng/mL See_Comment H [Automated message] The [...] of biotin. Lab Interpretation (test code = 78159-5) [facility]21:29* Test Item Value Reference Range Interpretation Comments Procalcitonin (test code = 8541256857) 0.04 ng/mL See_Comment [Automated message] The system [...] lung abscess/empyema. For further information please refer to:[email or web address] [email or web address] p Lab Interpretation (test code = 02827-1) [facility] 08:21:29* Test Item Value Reference Range Interpretation Comments Procalcitonin (test code = 4775034284) 0.04 ng/mL See_Comment [Automated message] The system [...] lung abscess/empyema. For further information please refer to:[email or web address] [email or web address] p Lab Interpretation (test code = 01283-8) [facility] 08:21:29* Test Item Value Reference Range Interpretation Comments Procalcitonin (test code = 1644505476) 0.04 ng/mL See_Comment [Automated message] The system [...] lung abscess/empyema. For further information please refer to:[email or web address] [email or web address] p Lab Interpretation (test code = 28802-2) [facility] 08:21:29* Test Item Value Reference Range Interpretation Comments Procalcitonin (test code = 1348242168) 0.04 ng/mL See_Comment [Automated message] The system [...] lung abscess/empyema. For further information please refer to:[email or web address] [email or web address] p Lab Interpretation (test code = 55380-5) [facility] 08:21:29* Test Item Value Reference Range Interpretation Comments Procalcitonin (test code = 7085865594) 0.04 ng/mL See_Comment [Automated message] The system [...] lung abscess/empyema. For further information please refer to:[email or web address] [email or web address] p Lab Interpretation (test code = 97289-9) [facility] (NA, K, CL, CO2, GLUCOSE, BUN, CREATININE, CA)2022-09-15 08:19:48* Test Item Value Reference Range Interpretation Comme nts NA (test code = 2380132072) 141 mmol/L 135-145 K (test code = 5311017508) 3.0 mmol/L 3.5-5.0 L CL (test code = 1095600933) 110 mmol/L 98-108 H CO2 TOTAL (test code = 5694626314) 24 mmol/L 23-31 AGAP (test code = 8110076630) 2-16 BUN (test code = 7732753481) 14 mg/dL 7-23 GLUCOSE (test code = 0037897481) 89 mg/dL 70-110 CREATININE (test code = 8059884766) 0.83 mg/dL 0.60-1.25 CALCIUM (test code = 9509877593) 7.1 mg/dL 8.6-10.6 L eGFR (test code = 3058502747) mL/min/1.73m2 JOCELIN (test code = JOCELIN) Association [...] imaging tests). Lab Interpretation (test code = 82700-8) Abnormal [facility] METABOLIC PANEL (NA, K, CL, CO2, GLUCOSE, BUN, CREATININE, CA)2022-09-15 08:19:48* Test Item Value Reference Range Interpretation Comme nts NA (test code = 0741930466) 141 mmol/L 135-145 K (test code = 2696611011) 3.0 mmol/L 3.5-5.0 L CL (test code = 6300859016) 110 mmol/L 98-108 H CO2 TOTAL (test code = 3588899697) 24 mmol/L 23-31 AGAP (test code = 3505126972) 2-16 BUN (test code = 1831359811) 14 mg/dL 7-23 GLUCOSE (test code = 0085538619) 89 mg/dL 70-110 CREATININE (test code = 3449779051) 0.83 mg/dL 0.60-1.25 CALCIUM (test code = 9223300013) 7.1 mg/dL 8.6-10.6 L eGFR (test code = 7478312838) mL/min/1.73m2 JOCELIN (test code = JOCELIN) Association [...] imaging tests). Lab Interpretation (test code = 16476-4) Abnormal [facility] METABOLIC PANEL (NA, K, CL, CO2, GLUCOSE, BUN, CREATININE, CA)2022-09-15 08:19:48* Test Item Value Reference Range Interpretation Comme nts NA (test code = 1262363103) 141 mmol/L 135-145 K (test code = 8104721244) 3.0 mmol/L 3.5-5.0 L CL (test code = 6012799288) 110 mmol/L 98-108 H CO2 TOTAL (test code = 2774334739) 24 mmol/L 23-31 AGAP (test code = 9056226897) 2-16 BUN (test code = 4495191596) 14 mg/dL 7-23 GLUCOSE (test code = 9500681443) 89 mg/dL 70-110 CREATININE (test code = 2047875157) 0.83 mg/dL 0.60-1.25 CALCIUM (test code = 9263955050) 7.1 mg/dL 8.6-10.6 L eGFR (test code = 1644886885) mL/min/1.73m2 JOCELIN (test code = JOCELIN) Association [...] imaging tests). Lab Interpretation (test code = 52296-8) Abnormal [facility] METABOLIC PANEL (NA, K, CL, CO2, GLUCOSE, BUN, CREATININE, CA)2022-09-15 08:19:48* Test Item Value Reference Range Interpretation Comme nts NA (test code = 2945518842) 141 mmol/L 135-145 K (test code = 3681570516) 3.0 mmol/L 3.5-5.0 L CL (test code = 0171619632) 110 mmol/L 98-108 H CO2 TOTAL (test code = 4967367775) 24 mmol/L 23-31 AGAP (test code = 6529314895) 2-16 BUN (test code = 4232274745) 14 mg/dL 7-23 GLUCOSE (test code = 7106756075) 89 mg/dL 70-110 CREATININE (test code = 9721437972) 0.83 mg/dL 0.60-1.25 CALCIUM (test code = 4322701324) 7.1 mg/dL 8.6-10.6 L eGFR (test code = 9787347810) mL/min/1.73m2 JOCELIN (test code = JOCELIN) Association [...] imaging tests). Lab Interpretation (test code = 31993-4) [facility]normal [facility] / [id number] 07:59:43* Test Item Value Reference Range Interpretation Comme [facility] PROTIME PATIENT (test code = 5964-2) See_Comment H [Automated messa ge] The system which generated this result transmitted reference range: 10.1 - 12.6 Seconds. The reference range was not used to interpret this result as normal/abnormal. INR (test code = 6301-6) Normal INR <1.1; Warfarin Therapeutic range 2.0 to 3.0 or 2.5 to 3.5, depending upon the indications. Lab Interpretation (test code = 27172-8) Abnormal [facility] BranchProthrombin Time / [id number] 07:59:43* Test Item Value Reference Range Interpretation Comme [facility] PROTIME PATIENT (test code = 5964-2) See_Comment H [Automated messa ge] The system which generated this result transmitted reference range: 10.1 - 12.6 Seconds. The reference range was not used to interpret this result as normal/abnormal. INR (test code = 6301-6) Normal INR <1.1; Warfarin Therapeutic range 2.0 to 3.0 or 2.5 to 3.5, depending upon the indications. Lab Interpretation (test code = 49209-4) [facility] / [id number] 07:59:43* Test Item Value Reference Range Interpretation Comme [facility] PROTIME PATIENT (test code = 5964-2) See_Comment H [Automated messa ge] The system which generated this result transmitted reference range: 10.1 - 12.6 Seconds. The reference range was not used to interpret this result as normal/abnormal. INR (test code = 6301-6) Normal INR <1.1; Warfarin Therapeutic range 2.0 to 3.0 or 2.5 to 3.5, depending upon the indications. Lab Interpretation (test code = 54718-3) Abnormal [facility] BranchPro[facility] Time / [id number] 07:59:43* Test Item Value Reference Range Interpretation [...] the indications. Lab Interpretation (test code = 30363-4) Abnormal [facility] WITH [id number] 07:49:44* Test Item Value Reference Range Interpretation [...] 33.3 g/dL 31.2-35.0 RDW-SD (test code = 89360-7) 42.8 fL 38.5-51.6 RDW-CV (test code = 788-0) 13.7 % 12.1-15.4 PLT (test code = 777-3) See_Comment [Automated messa ge] The system which generated this result transmitted reference range: 150 - 328 10*3/?L. The reference range was not used to interpret this result as normal/abnormal. MPV (test code = 33041-0) 8.8 fL 9.8-13.0 L NRBC/100 WBC (test code = 4496683347) See_Comment [Automated UXCam ssage] The system which generated this result transmitted reference range: 0.0 - 10.0 /100 WBCs. The reference range was not used to interpret this result as normal/abnormal. NRBC x10^3 (test code = 9956716174) See_Comment [Automated messa ge] The system which generated this result transmitted reference range: 10*3/?L. The reference range was not used to interpret this result as normal/abnormal. GRAN MAT (NEUT) % (test code = 770-8) 61.0 % IMM GRAN % (test code = 0361493328) 0.30 % LYMPH % (test code = 736-9) 28.1 % MONO % (test code = 5905-5) 7.6 % EOS % (test code = 713-8) 2.5 % BASO % (test code = 706-2) 0.5 % GRAN MAT x10^3(ANC) (test code = 4758224979) 4.83 10*3/uL 1.99-6.95 IMM GRAN x10^3 (test code = 0588448266) 0.00-0.06 LYMPH x10^3 (test code = 731-0) 2.22 10*3/uL 1.09-3.23 MONO x10^3 (test code = 742-7) 0.60 10*3/uL 0.36-1.02 EOS x10^3 (test code = 711-2) 0.20 10*3/uL 0.06-0.53 BASO x10^3 (test code = 704-7) 0.04 10*3/uL 0.01-0.09 Lab Interpretation (test code = 51239-1) Abnormal [facility] WITH [id number] 07:49:44* Test Item Value Reference Range Interpretation [...] 33.3 g/dL 31.2-35.0 RDW-SD (test code = 96707-3) 42.8 fL 38.5-51.6 RDW-CV (test code = 788-0) 13.7 % 12.1-15.4 PLT (test code = 777-3) See_Comment [Automated messa ge] The system which generated this result transmitted reference range: 150 - 328 10*3/?L. The reference range was not used to interpret this result as normal/abnormal. MPV (test code = 06299-2) 8.8 fL 9.8-13.0 L NRBC/100 WBC (test code = 7611883843) See_Comment [Automated UXCam ssage] The system which generated this result transmitted reference range: 0.0 - 10.0 /100 WBCs. The reference range was not used to interpret this result as normal/abnormal. NRBC x10^3 (test code = 6666328340) See_Comment [Automated [employer] ge] The system which generated this result transmitted reference range: 10*3/?L. The reference range was not used to interpret this result as normal/abnormal. GRAN MAT (NEUT) % (test code = 770-8) 61.0 % IMM GRAN % (test code = 7021542188) 0.30 % LYMPH % (test code = 736-9) 28.1 % MONO % (test code = 5905-5) 7.6 % EOS % (test code = 713-8) 2.5 % BASO % (test code = 706-2) 0.5 % GRAN MAT x10^3(ANC) (test code = 4645359541) 4.83 10*3/uL 1.99-6.95 IMM GRAN x10^3 (test code = 2539758480) 0.00-0.06 LYMPH x10^3 (test code = 731-0) 2.22 10*3/uL 1.09-3.23 MONO x10^3 (test code = 742-7) 0.60 10*3/uL 0.36-1.02 EOS x10^3 (test code = 711-2) 0.20 10*3/uL 0.06-0.53 BASO x10^3 (test code = 704-7) 0.04 10*3/uL 0.01-0.09 Lab Interpretation (test code = 41550-8) Abnormal [facility] WITH [id number] 07:49:44* Test Item Value Reference Range Interpretation [...] 33.3 g/dL 31.2-35.0 RDW-SD (test code = 97524-2) 42.8 fL 38.5-51.6 RDW-CV (test code = 788-0) 13.7 % 12.1-15.4 PLT (test code = 777-3) See_Comment [Automated messa ge] The system which generated this result transmitted reference range: 150 - 328 10*3/?L. The reference range was not used to interpret this result as normal/abnormal. MPV (test code = 02087-8) 8.8 fL 9.8-13.0 L NRBC/100 WBC (test code = 1141603119) See_Comment [Automated UXCam ssage] The system which generated this result transmitted reference range: 0.0 - 10.0 /100 WBCs. The reference range was not used to interpret this result as normal/abnormal. NRBC x10^3 (test code = 0708785176) See_Comment [Automated messa ge] The system which generated this result transmitted reference range: 10*3/?L. The reference range was not used to interpret this result as normal/abnormal. GRAN MAT (NEUT) % (test code = 770-8) 61.0 % IMM GRAN % (test code = 2647833576) 0.30 % LYMPH % (test code = 736-9) 28.1 % MONO % (test code = 5905-5) 7.6 % EOS % (test code = 713-8) 2.5 % BASO % (test code = 706-2) 0.5 % GRAN MAT x10^3(ANC) (test code = 5510625054) 4.83 10*3/uL 1.99-6.95 IMM GRAN x10^3 (test code = 8184380530) 0.00-0.06 LYMPH x10^3 (test code = 731-0) 2.22 10*3/uL 1.09-3.23 MONO x10^3 (test code = 742-7) 0.60 10*3/uL 0.36-1.02 EOS x10^3 (test code = 711-2) 0.20 10*3/uL 0.06-0.53 BASO x10^3 (test code = 704-7) 0.04 10*3/uL 0.01-0.09 Lab Interpretation (test code = 32813-4) Abnormal [facility] WITH [id number] 07:49:44* Test Item Value Reference Range Interpretation [...] 33.3 g/dL 31.2-35.0 RDW-SD (test code = 84328-6) 42.8 fL 38.5-51.6 RDW-CV (test code = 788-0) 13.7 % 12.1-15.4 PLT (test code = 777-3) See_Comment [Automated [employer] ge] The system which generated this result transmitted reference range: 150 - 328 10*3/?L. The reference range was not used to interpret this result as normal/abnormal. MPV (test code = 33212-6) 8.8 fL 9.8-13.0 L NRBC/100 WBC (test code = 7753429385) See_Comment [Automated UXCam ssage] The system which generated this result transmitted reference range: 0.0 - 10.0 /100 WBCs. The reference range was not used to interpret this result as normal/abnormal. NRBC x10^3 (test code = 0795437093) See_Comment [Automated [employer]] The system which generated this result transmitted reference range: 10*3/?L. The reference range was not used to interpret this result as normal/abnormal. GRAN MAT (NEUT) % (test code = 770-8) 61.0 % IMM GRAN % (test code = 0577265868) 0.30 % LYMPH % (test code = 736-9) 28.1 % MONO % (test code = 5905-5) 7.6 % EOS % (test code = 713-8) 2.5 % BASO % (test code = 706-2) 0.5 % GRAN MAT x10^3(ANC) (test code = 2634712130) 4.83 10*3/uL 1.99-6.95 IMM GRAN x10^3 (test code = 8091221529) 0.00-0.06 LYMPH x10^3 (test code = 731-0) 2.22 10*3/uL 1.09-3.23 MONO x10^3 (test code = 742-7) 0.60 10*3/uL 0.36-1.02 EOS x10^3 (test code = 711-2) 0.20 10*3/uL 0.06-0.53 BASO x10^3 (test code = 704-7) 0.04 10*3/uL 0.01-0.09 Lab Interpretation (test code = 37135-5) [facility] [id number] 21:10:48XR LUMBAR SPINE 3 VW HISTORY: Male 60 years low back pain over 3 months duration COMPARISON: None FINDINGS: The vertebral bodies are normal in height and in normal alignment. Diffuse mild degenerative changes are present. No acute osseous abnormality.[facility], Radiant Results Inft User - 02/06/2021 4:11 PM CDTXR LUMBAR SPINE 3 VWHISTORY: Male 60 years low back pain over 3 months duration COMPARISON: NoneFINDINGS:The vertebral bodies are normal in height and in normal alignment.Diffuse mild degenerative changes are present.No acute osseous abnormality.[id number] 09:45:00* Test Item Value Reference Range Interpretation Comme nts Magnesium Lvl (test code = M agnesium Lvl) 2.1 1.8-2.4 Phosphorus (test code = Phosphorus) 2.9 2.5-4.5 [facility]YxpyqjbVKWVQDLQEEEO4536-24-43 09:45:00* Test Item Value Reference Range Interpretation Comme nts AGAP (test code = AGAP) 8.9 10.0-20.0 eGFR (test code = eGFR) 95 Glucose Lvl (test code = Glucose Lvl) 94 70-99 Sodium Lvl (test code = Sodium Lvl) 141 135-145 BUN (test code = BUN) 17 7-22 Calcium Lvl (test code = Calcium Lvl) 8.3 8.5-10.5 Potassium Lvl (test code = P otassium Lvl) 3.9 3.5-5.1 Creatinine Lvl (test code = Creatinine Lvl) 0.89 0.50-1.40 Chloride Lvl (test code = Chloride Lvl) 109 95-109 CO2 (test code = CO2) 27 24-32 [facility]cbs[facility]ouTDSJUVQXFD0368-06-33 09:45:00* Test Item Value Reference Range Interpretation Comme nts MPV (test code = MPV) 6.9 7.4-10.4 Platelet (test code = Platelet) 257 133-450 RDW (test code = RDW) 14.8 11.5-14.5 MCHC (test code = MCHC) 34.5 32.0-36.0 RBC (test code = RBC) 4.52 4.70-6.10 WBC (test code = WBC) 7.7 3.7-10.4 MCH (test code = MCH) 30.2 pg 27.0-31.0 MCV (test code = MCV) 87.5 80.0-94.0 Hct (test code = Hct) 39.5 42.0-54.0 Hgb (test code = Hgb) 13.6 14.0-18.0 Eosinophils (test code = Eosinophils) 2.0 <=4.0 Monocytes (test code = Monocytes) 8.2 2.0-12.0 Neutrophils # (test code = Neutrophils #) 4.5 1.5-8.1 Basophils (test code = Basophils) 0.4 <=1.0 Lymphocytes # (test code = Lymphocytes #) 2.4 1.0-5.5 Eosinophils # (test code = Eosinophils #) 0.2 <=0.5 Monocytes # (test code = Monocytes #) 0.6 <=0.8 Lymphocytes (test code = Lymphocytes) 31.5 20.0-40.0 Segs (test code = Segs) 57.9 45.0-75.0 [facility] HospitalPARATHYROID [id number] 09:45:00* Test Item Value Reference Range Interpretation Comme nts Ca Ion WB (test code = Ca Ion WB) 1.13 1.05-1.25 Ca Norm WB (test code = Ca Norm WB) 1.12 1.05-1.25 [facility]lineWcmpxrkDXYKFFFTLHEK3619-37-65 07:57:00* Test Item Value Reference Range Interpretation Comme nts AGAP (test code = AGAP) 9.3 10.0-20.0 BUN (test code = BUN) 16 7-22 Glucose Lvl (test code = Glucose Lvl) 78 70-99 Creatinine Lvl (test code = Creatinine Lvl) 1.10 0.50-1.40 Potassium Lvl (test code = P otassium Lvl) 4.3 3.5-5.1 Sodium Lvl (test code = Sodium Lvl) 139 135-145 CO2 (test code = CO2) 26 24-32 Chloride Lvl (test code = Chloride Lvl) 108 95-109 eGFR (test code = eGFR) 74 Calcium Lvl (test code = Calcium Lvl) 8.3 8.5-10.5 [facility]11-63-98 07:57:00* Test Item Value Reference Range Interpretation Comme nts MPV (test code = MPV) 7.0 7.4-10.4 MCHC (test code = MCHC) 33.8 32.0-36.0 MCV (test code = MCV) 88.5 80.0-94.0 MCH (test code = MCH) 29.9 pg 27.0-31.0 RBC (test code = RBC) 4.42 4.70-6.10 WBC (test code = WBC) 10.0 3.7-10.4 RDW (test code = RDW) 14.5 11.5-14.5 Platelet (test code = Platelet) 261 133-450 Hgb (test code = Hgb) 13.2 14.0-18.0 Hct (test code = Hct) 39.1 42.0-54.0 [facility] [id number] 00:35:00* Test Item Value Reference Range Interpretation Comme nts Albumin Lvl (test code = Albumin Lvl) 3.9 3.5-5.0 Total Protein (test code = T otal Protein) 7.7 6.4-8.4 AST (test code = AST) 30 <=37 ALT (test code = ALT) 21 <=65 Bili Total (test code = Bili Total) 0.3 0.2-1.3 Alk Phos (test code = Alk Phos) 68 39-136 Glucose Lvl (test code = Glucose Lvl) 85 70-99 BUN (test code = BUN) 11 7-22 Creatinine Lvl (test code = Creatinine Lvl) 0.93 0.50-1.40 Potassium Lvl (test code = P otassium Lvl) 4.0 3.5-5.1 Sodium Lvl (test code = Sodium Lvl) 145 135-145 Chloride Lvl (test code = Chloride Lvl) 108 95-109 CO2 (test code = CO2) 26 24-32 eGFR (test code = eGFR) 91 Calcium Lvl (test code = Calcium Lvl) 8.7 8.5-10.5 Globulin (test code = Globulin) 3.8 2.7-4.2 A/G Ratio (test code = A/G Ratio) 1.0 1 0.7-1.6 AGAP (test code = AGAP) 15.0 10.0-20.0 B/C Ratio (test code = B/C Ratio) 12 1 6-25 [facility] HospitalIorduviWBGBNSPHRU5708-65-59 00:35:00* Test Item Value Reference Range Interpretation Comme nts Monocytes # (test code = Monocytes #) 0.7 <=0.8 Neutrophils # (test code = N eutrophils #) 5.7 1.5-8.1 Lymphocytes # (test code = L ymphocytes #) 3.1 1.0-5.5 Eosinophils (test code = Eosinophils) 1.2 <=4.0 Basophils (test code = Basophils) 0.9 <=1.0 Monocytes (test code = Monocytes) 6.7 2.0-12.0 Lymphocytes (test code = Lymphocytes) 32.5 20.0-40.0 Segs (test code = Segs) 58.7 45.0-75.0 Eosinophils # (test code = E osinophils #) 0.1 <=0.5 Basophils # (test code = Basophils #) 0.1 <=0.2 [facility] BANK [id number] 21:44:00* Test Item Value Reference Range Interpretation Comme nts Antibody Scrn (test code = Antibody Scrn) Negative (04/11/19 4:44 PM) ABO/Rh (test code = ABO/Rh) A POS [facility] H[id number] 21:30:00* Test Item Value Reference Range Interpretation Comme nts PTT (test code = PTT) 30.7 s 22.9-35.8 INR (test code = INR) 0.88 1 0.85-1.17 PT (test code = PT) 11.8 s 12.0-14.7 K-time Rapid (test code = K- time Rapid) 1.3 min 0.6-2.3 R-time Rapid (test code = R- time Rapid) 0.7 min 0.4-0.7 Split Point Rapid (test code = Split Point Rapid) 0.6 min Max Amplitude Rapid (test co de = Max Amplitude Rapid) 63 mm 52-71 Angle Rapid (test code = Ang le Rapid) 75 degrees 64-80 Estimated % Lysis Rapid (genet t code = Estimated % Lysis Rapid) 1.0 <=7.5 G-value Rapid (test code = G -value Rapid) 8.6 5.0-11.6 ACT (TEG) Rapid (test code = ACT (TEG) Rapid) 113 s 86-118 Basophils # (test code = Bas ophils #) 0.1 <=0.2 Segs (test code = Segs) 77.5 45.0-75.0 Monocytes (test code = Monocytes) 3.8 2.0-12.0 Lymphocytes (test code = Lymphocytes) 18.0 20.0-40.0 Eosinophils (test code = Eosinophils) 0.3 <=4.0 Basophils (test code = Basophils) 0.4 <=1.0 Neutrophils # (test code = Neutrophils #) 9.0 1.5-8.1 Lymphocytes # (test code = Lymphocytes #) 2.1 1.0-5.5 Monocytes # (test code = Mon ocytes #) 0.4 <=0.8 [facility] HospitalIezmzrkIWRCKHXYDE2743-12-16 21:30:00* Test Item Value Reference Range Interpretation Comme nts CDC HIV 4th GEN (test code = CDC HIV 4th GEN) Negative *NA*(04/11/19 4:30 PM) Freddie Jacinto Notes Date/Time Note Provider Source 2024-11-23 15:17:00 [id number] [address] PATIENT NAME: CLEO LONG ADMIT DATE: 11/04/24 ACCOUNT NO: [id number] ROOM NO: 334 AGE: 63 REPORT TYPE: 360 - QUERY RESPONSE DOCUMENT SEX: M ADMITTING PHYSICIAN:Shyla Zepeda MD ATTENDING PHYSICIAN:Shyla Zepeda MD Provider Query QUERY TEXT: Acuity Heart Failure 360MD Query related questions should be directed to: [facility] Coding Query Hotline Based on your clinical judgment, can you further specify the acuity of the diastolic and systolic CHF documented in the query response report that represents the clinical indicators listed below? The patient's Clinical Indicators include: Systolic and diastolic CHF- From query response BNP of 4800-Hospitalist History Physical 11/04/2024 EF 36 % 52 - 72-ECHOCARDIOGRAM 11/04/2024 SOB- DS on 11/04/24 Furosemide 20 mg/2 mL Inj-MAR Options provided: -- Acute -- Chronic -- Acute on Chronic -- Other - I will add my own diagnosis -- Disagree - Not applicable / Not valid -- Disagree - Clinically unable to determine / Unknown -- Assign to another provider QUERY RESPONSE: The patient has acute on chronic heart failure. Query created by: Glen Jasso on 11/18/2024 1:06 AM at 1517 PATIENT NAME: CLEO LONG [facility] 2024-11-21 16:03:00 [phone] [address] PATIENT NAME: CLEO LONG ADMIT DATE: 11/04/24 ACCOUNT NO: [id number] ROOM NO: [id number] AGE: 63 REPORT TYPE: 360 - QUERY RESPONSE DOCUMENT SEX: M ADMITTING PHYSICIAN:Shyla Zepeda MD ATTENDING PHYSICIAN:Shyla Zepeda MD Provider Query QUERY TEXT: Condition General 360MD Query related questions should be directed to: [facility] Coding Query Helpline Based on your clinical judgement, can you please clarify if NSTEMI was confirmed, NSTEMI not confirmed, or other more appropriate diagnosis? The patient's Clinical Indicators include: Shortness of breath, choking, recent CABG-Hospitalist History Physical 11/04/2024 Patient was transferred here from outside facility for continued care, concern for NSTEMI, CHF-ED PHYSICIAN RECORD 11/04/2024 Found with elevated troponin of 307 -Cardiothoracic Surgery Consult 11/04/2024 heparin 25,000 units/0.45% NS 500 mL Options provided: -- Respond - Create new note now -- Disagree - Not applicable / Not valid -- Disagree - Clinically unable to determine / Unknown -- Assign to another provider QUERY RESPONSE: NSTEMI rule out Query created by: Sony Anderson on 11/19/2024 11:00 PM at 1603 PATIENT NAME: CLEO LONG [facility] 2024-11-16 15:13:00 [id number] [facility] [place] [address] PATIENT NAME: CLEO LONG ADMIT DATE: 11/04/24 ACCOUNT NO: [id number] ROOM NO: [facility] AGE: 63 REPORT TYPE: 360 - QUERY RESPONSE DOCUMENT SEX: M ADMITTING PHYSICIAN:Shyla Zepeda MD ATTENDING PHYSICIAN:Shyla Zepeda MD Provider Query QUERY TEXT: Specificity Heart Failure 360MD Query related questions should be directed to: [facility] Coding Query Helpline The medical record reflects the diagnosis of ''heart failure'' (e.g. Congestive, left, etc.) in the [Discharge Summary and date: 11/04/2024], and pertinent studies for type (e.g. echocardiogram, cardiac catheterization, abnormal EF) or pertinent clinical indicators for acuity (e.g. Elevated BNP, IV diuretics, abnormal imaging studies, etc.) Based on your clinical judgment, can you further clarify the type and acuity of the heart failure that represents the clinical indicators listed below? The patient's Clinical Indicators include: B-TYPE NATRIURETIC PEPTIDE (PG/ML) 376.0H - laboratory Results Reports: SOB - Hospitalist History Physical 11/04/2024 Systolic function is moderately reduced.The estimated ejection fraction is 40-44%, A small pericardial effusion - ECHOCARDIOGRAM 11/04/2024 Trace left pleural effusion persists - - XR CHEST 1 V 11/04/2024 Hypertensive heart disease with HF, Fluid overload - Discharge Summary 11/04/2024 Furosemide 20 mg/2 mL Inj - intravenous - MAR Options provided: -- Systolic, Please specify acuity. -- Diastolic, Please specify acuity. -- Systolic and diastolic, Please specify acuity. -- Left Ventricular Failure -- Biventricular Heart Failure -- High Output Heart Failure -- Right Heart Failure, Please specify acuity and if it is due to left heart failure. -- End Stage Heart Failure -- Other - I will add my own diagnosis -- Disagree - Not applicable / Not valid -- Disagree - Clinically unable to determine / Unknown -- Assign to another provider QUERY RESPONSE: The patient has systolic (HFrEF) and diastolic (HFpEF) heart failure. Query created by: Laura Acosta on 11/08/2024 1:14 AM at 1513 PATIENT NAME: CLEO LONG [facility] 2024-11-16 11:14:00 [id number] [place] [address] PATIENT NAME: CLEO LONG ADMIT DATE: 11/04/24 ACCOUNT NO: [id number] ROOM NO: [facility] AGE: 63 REPORT TYPE: 360 - QUERY RESPONSE DOCUMENT SEX: M ADMITTING PHYSICIAN:Shyla Zepeda MD ATTENDING PHYSICIAN:Shyla Zepeda MD Provider Query QUERY TEXT: Condition General 360MD Query related questions should be directed to: [facility] Coding Query Helpline Based on your clinical judgement, can you please clarify if NSTEMI was confirmed, NSTEMI not confirmed, or other more appropriate diagnosis? The patient's Clinical Indicators include: Possible NSTEMI. - ED PHYSICIAN RECORD 11/04/2024 TROP-I HIGH SENSITIVITY (ng/L) 166HH 177HH 197HH - Laboratory Results heparin 25,000 units/0.45% NS 500 mL heparin 5,000 units/1 mL Inj - intravenous - MAR Left ventricular hypertrophy with QRS widening and repolarization, inferior infarct - EKG S 11/05/2024 Options provided: -- Respond - Create new note now -- Disagree - Not applicable / Not valid -- Disagree - Clinically unable to determine / Unknown -- Assign to another provider QUERY RESPONSE: the health safety engineer on the case should be contacted Query created by: Sony Anderson on 11/10/2024 1:57 AM at 1114 PATIENT NAME: CLEO LONG [facility] 2024-11-04 16:45:00 [facility] ([facility]) Discharge Summary REPORT#:[id number] REPORT STATUS: Signed REPORT INITIALIZATION DATE:11/04/24 TIME: 1644 PATIENT: CLEO LONG UNIT #: [id number] ROOM/BED: [place] [address] : [birth year] AGE: 63 SEX: M ATTEND: Shyla Zepeda MD ADM AUTHOR: Ann Marie Llanos APRN REPT SERVICE DT/TIME: 11/04/24 164 * ALL edits or amendments must be made on the electronic/computer document * PCP PCP Discharge to: home General Information Discharge date: 11/04/24 Discharge diagnosis: - Elevated troponin - Fluid overload - Aspiration of food, questionable anaphylaxis - CAD with stent with recent CABG - Hypertensive heart disease with HF - Right carotid stenosis - Postop anemia Hospital course: 63 year old male with history of CAD and recent CABG who was transferred from [facility] to [facility] for shortness of breath and choking after eating bologna sandwich. Concern for possible anaphylaxis so was given albuterol, benadryl, solumedrol, and epinephrine with improvement. Found with elevated troponin of 307 and BNP of 4800. CXR showed cardiomegaly and small left sided pleural effusion. Patient received heparin and aspirin prior to transfer. Since arrival, denies chest pain, shortness of breath, nausea, vomiting, or dysphagia. 11/[address] surgery consult for followup and elevated troponin. Continue telemetry monitoring. SOB resolved, denies dysphagia or further aspiration. Continue to monitor. Aspiration precaution. Cardiac diet. Resume outpatient meds. Trend Hgb on blood thinners, transfuse if <7. Leukocytosis likely reactive vs from steroids, monitor. DVT ppx SCDs. Echo stable. Cleared by CT surgery and cardio. Consultants: cardiology, cardiovascular surgery Pt. condition on discharge: stable Med Rec Med Rec Discharge meds: Continue taking these medications: LOSARTAN (LOSARTAN) 100 MG TAB 100 MILLIGRAM ORAL DAILY. Instructions: Take at 5 pm SPIRONOLACTONE (ALDACTONE) 25 MG TAB 25 MILLIGRAM ORAL DAILY. ASPIRIN (ASPIRIN) 81 MG TAB.CHEW 81 MILLIGRAM ORAL DAILY. CLOPIDOGREL (PLAVIX) 75 MG TAB 75 MILLIGRAM ORAL DAILY. FERROUS SULFATE (FEOSOL) 325 MG (65 MG IRON) TAB 325 MILLIGRAM ORAL DAILY. Days = 30 Qty = 30 AMIODARONE (PACERONE) 200 MG TAB 200 MILLIGRAM ORAL TWICE DAILY. Days = 14 Qty = 21 Instructions: take 200mg BID x1 week, then 200mg x1 daily ATORVASTATIN (LIPITOR) 40 MG TAB 40 MILLIGRAM ORAL 2100 Days = 30 Qty = 30 METOPROLOL TARTRATE (LOPRESSOR) 25 MG TAB 25 MILLIGRAM ORAL EVERY 12 HOURS. Days = 30 Qty = [address] (PROTONIX) 40 MG TAB.DR 40 MILLIGRAM ORAL DAILY. Days = 30 Qty = 30 Dapagliflozin Propanediol (FARXIGA) 10 MG TAB 10 MILLIGRAM ORAL DAILY. Days = 30 Qty = 30 CYANOCOBALAMIN (VITAMIN B-12) 500 MCG TAB 500 MICROGRAM ORAL DAILY. Days = 30 Qty = 30 Objective VS/I O Last Documented: Result Date Time Pulse Ox 97 11/04 1625 Pulse 70 11/04 1625 Resp 33 11/04 1625 B/P 134/69 11/04 154 B/P Mean 0.0 11/04 154 O2 Delivery Room air 11/04 154 Temp 36.8 11/04 154 24 hour I O ending at 0700: 11/04 0700 11/03 1900 Intake Total Output Total 350 Balance -350 Output, Urine 350 Patient 76.1 kg Weight Weight Standing scale Measurement Method PATIENT WEIGHT: Weight (lb): 167 Weight (oz): 12.35 Weight (kg): 76.100 Results Findings/Data: Laboratory Tests: 11/04 11/04 11/04 11/04 0636 0200 0037 0000 Chemistry Sodium (134 - 147 mEq/L) 140 Potassium (3.4 - 5.0 mEq/L) 4.2 Chloride (100 - 108 mEq/L) 108 Carbon Dioxide (21 - 33 mEq/l) 27 Anion Gap (0 - 20) 10 BUN (7 - 25 mg/dL) 21 Creatinine (0.6 - 1.3 mg/dL) 1.0 Glomerular Filtr Rate (80 - 90) 85.1 Glucose (77 - 141 mg/dL) 133 Calcium (8.0 - 10.5 mg/dL) 8.9 Magnesium (1.6 - 2.6 mg/dL) 2.24 Troponin I High Sens (0 - 54 ng/L) 166 *H 177 *H LDL Cholesterol Measurd (0 - 100 mg/dL) 86.0 Coagulation PTT ([place]) (25.0 - 39.5 Seconds) 32.1 Hematology WBC (4.5 - 11.0 x10 3/uL) 16.6 H RBC (4.00 - 5.60 x10 6/uL) 3.09 L Hgb (12.5 - 16.9 g/dL) 8.7 L Hct (37.5 - 50.7 %) 29.8 L MCV (81.0 - 99.0 fL) 96.4 MCH (27.0 - 33.0 pg) 28.2 MCHC (33.0 - 37.0 g/dL) 29.2 L RDW (11.5 - 14.5 %) 16.4 H Plt Count (150 - 400 x10 3/uL) 623 H MPV (7.0 - 9.0 fL) 8.4 Neut % (Auto) (56.0 - 77.0 %) 92.5 H Lymph % (Auto) (14.0 - 32.0 %) 5.4 L [place] % (Auto) (4.8 - 9.0 %) 1.4 L Eos % (Auto) (0.3 - 3.7 %) 0.0 L Baso % (Auto) (0.0 - 2.0 %) 0.1 Neut # (Auto) (2.0 - 7.6 x10 3/uL) 15.33 H Lymph # (Auto) (1.0 - 3.8 x10 3/uL) 0.89 L [place] # (Auto) (0.1 - 0.8 x10 3/uL) 0.23 Eos # (Auto) (0.0 - 0.2 x10 3/uL) 0.00 Baso # (Auto) (0.0 - 0.2 x10 3/uL) 0.01 Abs Immat Gran (auto) (0.00 - 0.03 0.10 H x10 3/uL) Immature Gran % (0.0 - 2.0 %) 0.6 Nucleated RBC % (0 - 0 %) 0.0 Nucleated RBCs # (Man) (0.0 - 0.1 x10 3/uL) 0.00 Urines Urine Color (YEL/STRAW) YELLOW Urine Appearance (CLEAR) CLEAR Urine pH (5.0 - 7.0) 5.0 Ur Specific [place] (1.005 - 1.030) 1.011 Urine Protein (NEGATIVE) NEGATIVE Urine Glucose (UA) (NEGATIVE) 1+ H Urine Ketones (NEGATIVE) NEGATIVE Urine Blood (NEGATIVE) NEGATIVE Urine Nitrite (NEGATIVE) NEGATIVE Urine Bilirubin (NEGATIVE) NEGATIVE Urine Urobilinogen (0.2 - 1.0 mg/dL) 0.2 Ur Leukocyte Esterase (NEGATIVE) NEGATIVE Urine RBC (0 - 3 RBC/HPF) 0-3 Urine WBC (0 - 3 WBC/HPF) 0-3 Ur Squamous Epith Cells (NONE SEEN /HPF) NONE SEEN Calcium Oxalate Crystal (NONE SEEN /HPF) TRACE Urine Bacteria (NONE SEEN /HPF) NONE SEEN Urine Mucus (NONE SEEN /LPF) TRACE 11/03 11/03 2330 2330 Chemistry Sodium (134 - 147 mEq/L) 141 Potassium (3.4 - 5.0 mEq/L) 4.2 Chloride (100 - 108 mEq/L) 107 Carbon Dioxide (21 - 33 mEq/l) 27 Anion Gap (0 - 20) 12 BUN (7 - 25 mg/dL) 19 Creatinine (0.6 - 1.3 mg/dL) 1.2 Glomerular Filtr Rate (80 - 90) 68.4 L Glucose (77 - 141 mg/dL) 143 H Calcium (8.0 - 10.5 mg/dL) 8.9 Magnesium (1.6 - 2.6 mg/dL) 2.17 Total Bilirubin (0.0 - 1.0 mg/dL) 0.30 Direct Bilirubin (0.1 - 0.3 MG/DL) 0.10 Indirect Bilirubin (MG/DL) 0.20 AST (8 - 34 IUnit/L) 24 ALT (10 - 49 IUnit/L) 40 Total Alk Phosphatase (20 - 125 IUnit/L) 111 Troponin I High Sens (0 - 54 ng/L) 197 *H B-Natriuretic Peptide (0 - 100 PG/ML) 376.0 H Total Protein (6.4 - 8.2 g/dL) 7.6 Albumin (3.4 - 5.0 g/dL) 3.40 Coagulation INR (0.8 - 1.2) 1.1 PTT ([place]) (25.0 - 39.5 Seconds) 36.1 PT Patient/Control Mix (9.3 - 12.9 SECONDS) 11.8 Hematology WBC (4.5 - 11.0 x10 3/uL) 20.5 H RBC (4.00 - 5.60 x10 6/uL) 3.30 L Hgb (12.5 - 16.9 g/dL) 9.3 L Hct (37.5 - 50.7 %) 30.9 L MCV (81.0 - 99.0 fL) 93.6 MCH (27.0 - 33.0 pg) 28.2 MCHC (33.0 - 37.0 g/dL) 30.1 L RDW (11.5 - 14.5 %) 16.2 H Plt Count (150 - 400 x10 3/uL) 608 H MPV (7.0 - 9.0 fL) 8.3 Neut % (Auto) (56.0 - 77.0 %) 96.1 H Lymph % (Auto) (14.0 - 32.0 %) 3.0 L [place] % (Auto) (4.8 - 9.0 %) 0.2 L Eos % (Auto) (0.3 - 3.7 %) 0.0 L Baso % (Auto) (0.0 - 2.0 %) 0.1 Neut # (Auto) (2.0 - 7.6 x10 3/uL) 19.70 H Lymph # (Auto) (1.0 - 3.8 x10 3/uL) 0.62 L [place] # (Auto) (0.1 - 0.8 x10 3/uL) 0.04 L Eos # (Auto) (0.0 - 0.2 x10 3/uL) 0.01 Baso # (Auto) (0.0 - 0.2 x10 3/uL) 0.02 Abs Immat Gran (auto) (0.00 - 0.03 x10 3/uL) 0.12 H Add Manual Diff NO Immature Gran % (0.0 - 2.0 %) 0.6 Nucleated RBC % (0 - 0 %) 0.0 Nucleated RBCs # (Man) (0.0 - 0.1 x10 3/uL) 0.00 Radiology data: Recent Impressions: RADIOLOGY - XR CHEST 1 V 11/03 2336 Report Impression - Status: SIGNED Entered: 11/03/2024 4041 IMPRESSION: No interval change. Post sternotomy. Impression By: [email or web address] Alexia Simmnos M.D. Discharge Instructions PCP )( Discharge to: Home/Self Care Discharge Instructions Additional Discharge Routines: PCP Follow-Up )( Diet: Cardiac Follow-up Appointments PCP follow up: PCP: No Primary or Family Physician PCP follow up timeframe: In 1-2 weeks Consulting provider 1: Provider 1: Alec Norris MD Specialty: Cardiology Consult follow up timeframe: In 1-2 weeks Consulting provider 2: Provider 2: Deniz Ko MD Specialty: Thoracic Surgery Follow up timeframe: In 1-2 weeks at 0828 at 1112 RPT #:[id number] END OF REPORT [facility] 2024-11-04 15:45:00 [id number] [address] PATIENT NAME: CLEO LONG ADMIT DATE: 11/04/24 ACCOUNT NO: [id number] ROOM NO: [facility] AGE: 63 REPORT TYPE: eECHOCARDIOGRAM REPORT SEX: M ADMITTING PHYSICIAN:Shyla Zepeda MD ATTENDING PHYSICIAN:Shyla Zepeda MD *[address] [address] Transthoracic Echocardiogram Patient: Cleo Long Study Date: 11/04/2024 BP: 133 / 73 URN: [id number] Location: : 1960 Age: 63 Gender: M Height: 69 in / 175.3 cm Weight: 167 lb / 75.8 kg BMI/BSA: 24.7 kg/m 2 / 1.93 m 2 *Ordering Physician: * Margaret Serrano *Interpreting Physician: * Alec Norris MD *Metal Stamping Machine Operator: Georgia Solis Indications: Recent CABG. Evaluate EF, valves. R/O effusion. Study data: Transthoracic echocardiogram. Procedure: A transthoracic echocardiogram was performed. Image quality was adequate. Complete 2D, complete spectral Doppler, and color Doppler. Location: Bedside. Patient status: Inpatient. Patient room number: 3343. Study status: [facility]. Heart rate: 75 bpm. Findings Left ventricle: The cavity size is normal. Wall thickness is mildly increased. Systolic function is moderately reduced. The estimated ejection fraction is 40-44%. Pericardium: A small pericardial effusion is identified. PATIENT NAME: CLEO LOGN Measurements Left ventricle Value Ref EVY, LAX 5.5 cm 4.2 - 5.8 ESD, LAX 4.5 cm 2.5 - 4.0 FS, LAX 17 % 25 - 43 IVS, ED 1.1 cm 0.6 - 1.0 PW, ED 1.2 cm 0.6 - 1.0 IVS/PW, ED 0.87 --------- EF 36 % 52 - 72 Conclusions Summary: 1. Left ventricle: The cavity size is normal. Wall thickness is mildly increased. Systolic function is moderately reduced. The estimated ejection fraction is 40-44%. 2. Pericardium, extracardiac: A small pericardial effusion is identified. Electronically signed by Alec Norris MD 11/04/2024 15:44 at 1545 PATIENT NAME: CLEO LONG [facility] 2024-11-04 13:43:00 [facility] Cardiothoracic Surgery Consult REPORT#:[id number] REPORT STATUS: Signed REPORT INITIALIZATION DATE:11/04/24 TIME: 1343 PATIENT: CLEO OLNG UNIT #: [id number] ROOM[place]BED: [facility] : 61 AGE: 63 SEX: M ATTEND: Shyla Zepeda MD ADM AUTHOR: Margaret SerranoFAMILY EDUCATOR REPT SERVICE DT/TIME: 11/04/24 1343 * ALL edits or amendments must be made on the electronic/computer document * Margaret Serrano 11/04/24 1343: History of Present Illness HPI PCP: PCP: No Primary or Family Physician HPI: Patient is a 63 year old male with history of CAD and recent CABG (10/21/24), HTN, CHF, and HLD who was transferred from [facility] to [facility] for shortness of breath and choking after eating bologna sandwich. There was concern for possible anaphylaxis so was given albuterol, benadryl, solumedrol, and epinephrine with improvement. Found with elevated troponin of 307 and BNP of 4800. CXR showed cardiomegaly and small left sided pleural effusion. Patient received heparin and aspirin prior to transfer. Since arrival, denies chest pain, shortness of breath , nausea, vomiting, or dysphagia. Patient has history of drug abuse, denies smoking or drinking recently. CV surgery consulted for recent CABG. Thank you for this kind consult. Hx Obtained From Patient History Past Medical History: Reports: Congestive heart failure, Coronary artery disease, Hypertension. Past Surgical History: Reports: CABG. Alcohol Use Denies EtOH use Drug Use Denies recreational drugs Smoking status for patients 13 years old or older: Current every day smoker Date last smoked: 11/03/24 Packs per day: 0.5 Years smoked: 40 Allergies: Coded Allergies: No Known Allergies (10/14/24) Review of Systems Review of Systems Constitutional: Denies: chills, fatigue, fever. Eyes: Denies: redness. ENT: Denies: ear drainage. Respiratory: Denies: BAIG (dyspnea on exertion), hemoptysis, non productive cough. Cardiovascular: Denies: chest pain, BAIG (dyspnea on exertion), edema. GI: Denies: abdominal pain. : Denies: dysuria. Musculoskeletal: Denies: arthritis. All systems rev neg: except as marked Objective Physical Exam VS/I O: Last Documented: Result Date Time Pulse Ox 97 11/04 1423 O2 Delivery Room air 11/04 1423 B/P 135/74 11/04 121 B/P Mean 94 11/04 1215 Temp 98.2 11/04 1215 Pulse 67 11/04 121 Resp 18 11/04 121 24 hour I O ending at 0700: 11/04 0700 11/03 1900 Intake Total Output Total 350 Balance -350 Output, Urine 350 Patient 76.1 kg Weight Weight Standing scale Measurement Method PATIENT WEIGHT: Weight (lb): 167 Weight (oz): 12.35 Weight (kg): 76.100 General appearance: alert, awake, oriented Wound/incision: Location: sternum Site condition: edges approximated, incision intact, no changes in wound HEENT: anicteric, mucosal membranes moist, pupils reactive to light Neck: full range of motion, non-tender Cardiovascular: normal heart sounds, regular rate rhythm, no ectopy Respiratory: symmetric expansion, no distress Abdomen: soft, non-tender, normal bowel sounds Genitourinary: urine Extremities: dry, moves all, normal capillary refill Musculoskeletal: full range of motion, painless range of motion 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: alert, oriented X 3 Skin: dry, intact, normal temperature Results Findings/Data: Laboratory Tests 11/04 11/04 11/04 11/03 11/03 0636 0200 0000 2330 2330 Chemistry Sodium (134 - 147 mEq/L) 140 141 Potassium (3.4 - 5.0 mEq/L) 4.2 4.2 Chloride (100 - 108 mEq/L) 108 107 Carbon Dioxide (21 - 33 mEq/l) 27 27 Anion Gap (0 - 20) 10 12 BUN (7 - 25 mg/dL) 21 19 Creatinine (0.6 - 1.3 mg/dL) 1.0 1.2 Glomerular Filtr Rate (80 - 90) 85.1 68.4 L Glucose (77 - 141 mg/dL) 133 143 H Calcium (8.0 - 10.5 mg/dL) 8.9 8.9 Magnesium (1.6 - 2.6 mg/dL) 2.24 2.17 Total Bilirubin (0.0 - 1.0 mg/dL) 0.30 Direct Bilirubin (0.1 - 0.3 MG/DL) 0.10 Indirect Bilirubin (MG/DL) 0.20 AST (8 - 34 IUnit/L) 24 ALT (10 - 49 IUnit/L) 40 Total Alk Phosphatase (20 - 125 111 IUnit/L) Troponin I High Sens (0 - 54 ng/L) 166 *H 177 *H 197 *H B-Natriuretic Peptide (0 - 100 PG/ML) 376.0 H Total Protein (6.4 - 8.2 g/dL) 7.6 Albumin (3.4 - 5.0 g/dL) 3.40 LDL Cholesterol Measurd (0 - 100 86.0 mg/dL) Laboratory Tests 11/04 11/03 0636 2330 Coagulation INR (0.8 - 1.2) 1.1 PTT (Rosi) (25.0 - 39.5 Seconds) 32.1 36.1 PT Patient/Control Mix (9.3 - 12.9 SECONDS) 11.8 Laboratory Tests 11/04 11/03 0636 2330 Hematology WBC (4.5 - 11.0 x10 3/uL) 16.6 H 20.5 H RBC (4.00 - 5.60 x10 6/uL) 3.09 L 3.30 L Hgb (12.5 - 16.9 g/dL) 8.7 L 9.3 L Hct (37.5 - 50.7 %) 29.8 L 30.9 L MCV (81.0 - 99.0 fL) 96.4 93.6 MCH (27.0 - 33.0 pg) 28.2 28.2 MCHC (33.0 - 37.0 g/dL) 29.2 L 30.1 L RDW (11.5 - 14.5 %) 16.4 H 16.2 H Plt Count (150 - 400 x10 3/uL) 623 H 608 H MPV (7.0 - 9.0 fL) 8.4 8.3 Neut % (Auto) (56.0 - 77.0 %) 92.5 H 96.1 H Lymph % (Auto) (14.0 - 32.0 %) 5.4 L 3.0 L [place] % (Auto) (4.8 - 9.0 %) 1.4 L 0.2 L Eos % (Auto) (0.3 - 3.7 %) 0.0 L 0.0 L Baso % (Auto) (0.0 - 2.0 %) 0.1 0.1 Neut # (Auto) (2.0 - 7.6 x10 3/uL) 15.33 H 19.70 H Lymph # (Auto) (1.0 - 3.8 x10 3/uL) 0.89 L 0.62 L [place] # (Auto) (0.1 - 0.8 x10 3/uL) 0.23 0.04 L Eos # (Auto) (0.0 - 0.2 x10 3/uL) 0.00 0.01 Baso # (Auto) (0.0 - 0.2 x10 3/uL) 0.01 0.02 Abs Immat Gran (auto) (0.00 - 0.03 x10 3/uL) 0.10 H 0.12 H Add Manual Diff NO Immature Gran % (0.0 - 2.0 %) 0.6 0.6 Nucleated RBC % (0 - 0 %) 0.0 0.0 Nucleated RBCs # (Man) (0.0 - 0.1 x10 3/uL) 0.00 0.00 Laboratory Tests 11/04 0037 Urines Urine Color (YEL/STRAW) YELLOW Urine Appearance (CLEAR) CLEAR Urine pH (5.0 - 7.0) 5.0 Ur Specific [place] (1.005 - 1.030) 1.011 Urine Protein (NEGATIVE) NEGATIVE Urine Glucose (UA) (NEGATIVE) 1+ H Urine Ketones (NEGATIVE) NEGATIVE Urine Blood (NEGATIVE) NEGATIVE Urine Nitrite (NEGATIVE) NEGATIVE Urine Bilirubin (NEGATIVE) NEGATIVE Urine Urobilinogen (0.2 - 1.0 mg/dL) 0.2 Ur Leukocyte Esterase (NEGATIVE) NEGATIVE Urine RBC (0 - 3 RBC/HPF) 0-3 Urine WBC (0 - 3 WBC/HPF) 0-3 Ur Squamous Epith Cells (NONE SEEN /HPF) NONE SEEN Calcium Oxalate Crystal (NONE SEEN /HPF) TRACE Urine Bacteria (NONE SEEN /HPF) NONE SEEN Urine Mucus (NONE SEEN /LPF) TRACE Radiology data: Recent Impressions: RADIOLOGY - XR CHEST 1 V 11/03 5856 Report Impression - Status: SIGNED Entered: 11/03/2024 0793 IMPRESSION: No interval change. Post sternotomy. Impression By: BonitaMBianca - Dillan Simmons M.D. Results: labs reviewed, vital signs reviewed, vital signs stable, rhythm personally rev'd, current med profile rev'd Diagnosis, Assessment Plan Free Text A P: Patient is a 63 year old male with history of CAD and recent CABG (10/21/24), HTN, CHF, and HLD who was transferred from [facility] to [facility] for shortness of breath and choking after eating bologna sandwich. There was concern for possible anaphylaxis so was given albuterol, benadryl, solumedrol, and epinephrine with improvement. Found with elevated troponin of 307 and BNP of 4800. CXR showed cardiomegaly and small left sided pleural effusion. Patient received heparin and aspirin prior to transfer. Since arrival, denies chest pain, shortness of breath , nausea, vomiting, or dysphagia. Patient has history of drug abuse, denies smoking or drinking recently. CV surgery consulted for recent CABG. Thank you for this kind consult. Assessment/Plan: 1. CAD s/p recent CABG 2. hypertension 3. CHF 4. Hyperlipidemia Closely monitor hemodynamics Patient hemodynamically stable Ordered toxocology Consult cardiology Trending trops 197, 177, 166 Echocardiogram ordered Reviewed labs, replace electrolytes as needed CXR reviewed, breathing comfortably on RA Continue supportive care Patient seen and examined. Discussed plan of care with Dr. Yusuf, nurse, and patient. All questions answered. MDM done by Dr. Yusuf. Code Status/Resusc. Discussion Resuscitation discussion: Discussed with: patient Code status: full code STACEY ROSE 11/05/24 8997: Attestations Physician Attestation Agree w/findings plan: Agree with findings and evaluation by CVNP. Treatment plans made. I personally provided 45 minutes of total time on direct and indirect patient care activities on the date of this encounter, exclusive of time spent on other separately reportable services. at 143 at 8390 RPT #:[id number] END OF REPORT [facility] 2024-11-04 08:41:00 [facility] ([facility]) Hospitalist History Physical REPORT#:[id number] REPORT STATUS: Signed REPORT INITIALIZATION DATE:11/04/24 TIME: 840 PATIENT: CLEO LONG UNIT #: [id number] ROOM/BED: [place] [id number] : [birth year] AGE: 63 SEX: M ATTEND: Shyla Zepeda MD ADM AUTHOR: Ann Marie Llanos APRN REPT SERVICE DT/TIME: 11/04/24 08 * ALL edits or amendments must be made on the electronic/computer document * History of Present Illness HPI Chief complaint: shortness of breath, choking, recent CABG HPI: 63 year old male with history of CAD and recent CABG who was transferred from [facility] to [facility] for shortness of breath and choking after eating bologna sandwich. Concern for possible anaphylaxis so was given albuterol, benadryl, solumedrol, and epinephrine with improvement. Found with elevated troponin of 307 and BNP of 4800. CXR showed cardiomegaly and small left sided pleural effusion. Patient received heparin and aspirin prior to transfer. Since arrival, denies chest pain, shortness of breath, nausea, vomiting, or dysphagia. History Past medical history: Reports: Congestive heart failure, Coronary artery disease, Hypertension. Past surgical history: Reports: CABG. Additional family history: noncontributory Alcohol use: Denies EtOH use Drug use: Denies recreational drugs Smoking status for patients 13 years old or older: Current every day smoker Date last smoked: 11/03/24 Packs per day: 0.5 Years smoked: 40 Medication/Allergy-Vaccine Hx Medications: Home Medications: Medication Dose/Rte/Freq Days Qty Entered Last Max Daily Dose Reviewed LOSARTAN 100 MG PO DAILY 10/15/24 11/04/24 Strength: 100 MG TAB 1054 0120 SPIRONOLACTONE 25 MG PO DAILY 10/15/24 (ALDACTONE) 1055 Strength: 25 MG TAB ASPIRIN 81 MG PO DAILY 10/15/24 11/04/24 Strength: 81 MG TAB.CHEW 1055 0119 CLOPIDOGREL (PLAVIX) 75 MG PO DAILY 10/15/24 11/04/24 Strength: 75 MG TAB 1056 0120 FERROUS SULFATE 325 MG PO DAILY 30 30 10/30/24 11/04/24 (FEOSOL) 1132 0120 Strength: 325 MG (65 MG IRON) TAB AMIODARONE (PACERONE) 200 MG PO BID 14 21 10/30/24 11/04/24 Strength: 200 MG TAB 1132 0120 ATORVASTATIN (LIPITOR) 40 MG PO 2100 30 30 10/30/24 11/04/24 Strength: 40 MG TAB 1133 0120 METOPROLOL TARTRATE 25 MG PO Q12HR 30 60 10/30/24 11/04/24 (LOPRESSOR) 1133 0120 Strength: [address] 40 MG PO 30 30 10/30/24 11/04/24 (PROTONIX) DAILY@0600 1136 0120 Strength: 40 MG TAB.DR Dapagliflozin Propanediol 10 MG PO DAILY 30 30 10/30/24 11/04/24 (FARXIGA) 1137 0121 Strength: 10 MG TAB CYANOCOBALAMIN 500 MCG PO DAILY 30 30 10/30/24 11/04/24 (VITAMIN B-12) 1137 0121 Strength: 500 MCG TAB Current Hospital Medications: Blood Formation,Coagulation Sig/Nia Start time Last Medication Dose Route Stop Time Status Admin Heparin Sodium 5,000 UNIT ASDIR PRN PRN 11/03 2330 AC 11/04 (HEPARIN 5000 UNITS/ IV 02/01 2329 0810 ML) Heparin Sodium 3,000 UNIT ASDIR PRN PRN 11/03 2330 AC (HEPARIN 5000 UNITS/ IV 02/01 2329 ML) Heparin Sodium 500 ML ASDIR 11/03 2330 CKD 11/04 (Porcine) IV 02/01 2329 0036 (HEPARIN 25,000 UNITS/ 1/2NS 500ML) Electrolytic, Caloric, And Gail Sig/Nia Start time Last Medication Dose Route Stop Time Status Admin Furosemide 20 MG ONCE ONE 11/04 0745 DC 11/04 (LASIX 20MG INJ) IV 11/04 0746 0810 Allergies: Coded Allergies: No Known Allergies (10/14/24) Review of Systems Constitutional: Denies: chills, fever. ENT: other (choking). Respiratory: Reports: SOB (ADULT MANAGER). Cardiovascular: Denies: chest pain, palpitations. GI: Denies: dysphagia, nausea, vomiting. Neuro: Denies: dizziness, headache. All systems rev neg: except as marked Objective General VS/I O: Vital Signs: Date Time Temp Pulse Resp B/P B/P Pulse O2 O2 Flow FiO2 Mean Ox Delivery Rate 11/04 0747 36.8 81 18 133/73 92.9 97 Room air 11/04 0416 36.4 78 17 147/76 99.9 94 Room air 11/04 0115 36.7 71 16 166/81 0.0 97 Nasal cannula 11/04 0105 70 22 156/74 108 99 11/04 0055 71 26 143/77 102 96 11/03 2317 36.7 71 20 144/75 98 98 24 hour I O ending at 0700: 11/04 0700 11/03 1900 Intake Total Output Total 350 Balance -350 Output, Urine 350 Patient 76.1 kg Weight Weight Standing scale Measurement Method PATIENT WEIGHT: Weight (lb): 167 Weight (oz): 12.35 Weight (kg): 76.100 Medications: Active Meds + DC'd Last 24 Hrs Furosemide (LASIX 20MG INJ) 20 MG ONCE ONE IV (DC) Heparin Sodium (HEPARIN 5000 UNITS/ML) 5,000 UNIT ASDIR PRN PRN IV Heparin Sodium (HEPARIN 5000 UNITS/ML) 3,000 UNIT ASDIR PRN PRN IV Heparin Sodium (Porcine) (HEPARIN 25,000 UNITS/ 1/2NS 500ML) 500 ML ASDIR IV (CKD) Physical Exam General appearance: alert, awake, oriented, no acute distress, no respiratory distress Head/Eyes: atraumatic, normocephalic ENT: moist mucosal membranes Neck: supple/no meningismus Cardiovascular: normal heart sounds, regular rate rhythm Respiratory: rhonchi, symmetric expansion, no distress Abdomen: non-tender, soft Extremities: moves all, no clubbing, no cyanosis, no edema Musculoskeletal: normal inspection 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: alert, oriented X 3, normal speech Skin: normal color, normal temperature Psychiatry: normal affect, normal mood Results Findings/Data: Laboratory Tests 11/04 11/04 11/04 11/03 11/03 0636 0200 0000 2330 2330 Chemistry Sodium (134 - 147 mEq/L) 140 141 Potassium (3.4 - 5.0 mEq/L) 4.2 4.2 Chloride (100 - 108 mEq/L) 108 107 Carbon Dioxide (21 - 33 mEq/l) 27 27 Anion Gap (0 - 20) 10 12 BUN (7 - 25 mg/dL) 21 19 Creatinine (0.6 - 1.3 mg/dL) 1.0 1.2 Glomerular Filtr Rate (80 - 90) 85.1 68.4 L Glucose (77 - 141 mg/dL) 133 143 H Calcium (8.0 - 10.5 mg/dL) 8.9 8.9 Magnesium (1.6 - 2.6 mg/dL) 2.24 2.17 Total Bilirubin (0.0 - 1.0 mg/dL) 0.30 Direct Bilirubin (0.1 - 0.3 MG/DL) 0.10 Indirect Bilirubin (MG/DL) 0.20 AST (8 - 34 IUnit/L) 24 ALT (10 - 49 IUnit/L) 40 Total Alk Phosphatase (20 - 125 111 IUnit/L) Troponin I High Sens (0 - 54 ng/L) 166 *H 177 *H 197 *H B-Natriuretic Peptide (0 - 100 376.0 H PG/ML) Total Protein (6.4 - 8.2 g/dL) 7.6 Albumin (3.4 - 5.0 g/dL) 3.40 LDL Cholesterol Measurd (0 - 100 86.0 mg/dL) Laboratory Tests 11/04 11/03 0636 2330 Coagulation INR (0.8 - 1.2) 1.1 PTT ([place]) (25.0 - 39.5 Seconds) 32.1 36.1 PT Patient/Control Mix (9.3 - 12.9 SECONDS) 11.8 Laboratory Tests 11/04 11/03 0636 2330 Hematology WBC (4.5 - 11.0 x10 3/uL) 16.6 H 20.5 H RBC (4.00 - 5.60 x10 6/uL) 3.09 L 3.30 L Hgb (12.5 - 16.9 g/dL) 8.7 L 9.3 L Hct (37.5 - 50.7 %) 29.8 L 30.9 L MCV (81.0 - 99.0 fL) 96.4 93.6 MCH (27.0 - 33.0 pg) 28.2 28.2 MCHC (33.0 - 37.0 g/dL) 29.2 L 30.1 L RDW (11.5 - 14.5 %) 16.4 H 16.2 H Plt Count (150 - 400 x10 3/uL) 623 H 608 H MPV (7.0 - 9.0 fL) 8.4 8.3 Neut % (Auto) (56.0 - 77.0 %) 92.5 H 96.1 H Lymph % (Auto) (14.0 - 32.0 %) 5.4 L 3.0 L [place] % (Auto) (4.8 - 9.0 %) 1.4 L 0.2 L Eos % (Auto) (0.3 - 3.7 %) 0.0 L 0.0 L Baso % (Auto) (0.0 - 2.0 %) 0.1 0.1 Neut # (Auto) (2.0 - 7.6 x10 3/uL) 15.33 H 19.70 H Lymph # (Auto) (1.0 - 3.8 x10 3/uL) 0.89 L 0.62 L [place] # (Auto) (0.1 - 0.8 x10 3/uL) 0.23 0.04 L Eos # (Auto) (0.0 - 0.2 x10 3/uL) 0.00 0.01 Baso # (Auto) (0.0 - 0.2 x10 3/uL) 0.01 0.02 Abs Immat Gran (auto) (0.00 - 0.03 x10 3/uL) 0.10 H 0.12 H Add Manual Diff NO Immature Gran % (0.0 - 2.0 %) 0.6 0.6 Nucleated RBC % (0 - 0 %) 0.0 0.0 Nucleated RBCs # (Man) (0.0 - 0.1 x10 3/uL) 0.00 0.00 Laboratory Tests 11/04 0037 Urines Urine Color (YEL/STRAW) YELLOW Urine Appearance (CLEAR) CLEAR Urine pH (5.0 - 7.0) 5.0 Ur Specific [place] (1.005 - 1.030) 1.011 Urine Protein (NEGATIVE) NEGATIVE Urine Glucose (UA) (NEGATIVE) 1+ H Urine Ketones (NEGATIVE) NEGATIVE Urine Blood (NEGATIVE) NEGATIVE Urine Nitrite (NEGATIVE) NEGATIVE Urine Bilirubin (NEGATIVE) NEGATIVE Urine Urobilinogen (0.2 - 1.0 mg/dL) 0.2 Ur Leukocyte Esterase (NEGATIVE) NEGATIVE Urine RBC (0 - 3 RBC/HPF) 0-3 Urine WBC (0 - 3 WBC/HPF) 0-3 Ur Squamous Epith Cells (NONE SEEN /HPF) NONE SEEN Calcium Oxalate Crystal (NONE SEEN /HPF) TRACE Urine Bacteria (NONE SEEN /HPF) NONE SEEN Urine Mucus (NONE SEEN /LPF) TRACE Radiology data: Recent Impressions: RADIOLOGY - XR CHEST 1 V 11/03 2336 Report Impression - Status: SIGNED Entered: 11/03/2024 8423 IMPRESSION: No interval change. Post sternotomy. Impression By: Charmaine Simmons M.D. Diagnosis, Assessment Plan Free Text DxA P Notes Free Text DxA P Notes: Impression/Plan: - Elevated troponin - Fluid overload - Aspiration of food, questionable anaphylaxis - CAD with stent with recent CABG - Hypertensive heart disease with HF - Right carotid stenosis - Postop anemia Cardiology and CT surgery consult for followup and elevated troponin. Continue telemetry monitoring. SOB resolved, denies dysphagia or further aspiration. Continue to monitor. Aspiration precaution. Cardiac diet. Resume outpatient meds. Trend Hgb on blood thinners, transfuse if <7. Leukocytosis likely reactive vs from steroids, monitor. DVT ppx SCDs. at 1005 at 1704 RPT #:[id number] END OF REPORT [facility] 2024-10-30 20:36:00 [facility] ([facility]) Discharge Summary REPORT#:[id number] REPORT STATUS: Signed REPORT INITIALIZATION DATE:10/30/24 TIME: 2035 PATIENT: CLEO LONG UNIT #: [id number] ROOM/BED: 3343-1 : 61 AGE: 63 SEX: M ATTEND: Shyla Zepeda MD ADM AUTHOR: Ann Marie Llanos APRN REPT SERVICE DT/TIME: 10/30/242035 * ALL edits or amendments must be made on the electronic/computer document * PCP PCP Discharge to: home General Information Discharge date: 10/30/24 Discharge diagnosis: CAD with stent s/p CABG Substance use HTN heart disease with HF Chronic systolic HF EF 35-39% Right carotid stenosis 50-69% anemia -- due to acute blood loss Hospital course: 63 years old male with PMH of HTN, CHF, and CAD with 7 stents who presented from [facility] complaining of CP, admitted for NSTEMI. 10/15 tele cardiology consult continue ASA/plavix /lipitor CHF -- continue lasix and aldactone -- cozaar HTN- continue coreg 10/16- no cp no sob -- cath today -- post cath -- CABG evaluation 10/17 CABG next week, medically stable to proceed 10/18 CABG next week, Chest CT scan showed ? Pericardal effusion. stable to proceed 10/19 Vitals and labs stable today. No acute complaints. CABG later then week per surgeon. 10/20 labs and vitals remains stable. CABG later this week when surgery schedules. 10/22 S/P CABG 10/21. Continue postop care per CT surgery in ICU. Monitor chest tube OP. Monitor hgb, transfuse if hgb <7. S/P 1 unit PRBC. PT/OT for OOB. DC planning, possible SNF vs IPR. 10/23 Continue post-op care. PT/OT. Chest tubes out. Labs noted, CMP ok. Monitor Hgb and WBC. Rehab eval. 10/24- he sit on the chair no sob no dizziness -- he is hemodynamic stable -- HB-- 6.3- 6.1-- monitor H H --blood transfuse as CV surgeon and critical care --continue monitor in CV icu -- lab review 10/25 -- he had bowel movement . he is doing well . ambulate with PT -- he is hemodynamic stable -- H h -- 6.4- stable -- as cv surgeon -- continue PT/OT -- CM-- rehab or SNF placement 10/27 Continue post-op care per surgeon. Monitor H+H, no order for transfusion at this time, same range for few days, asymptomatic. PT/OT. To floor when cardio surg ok. 10/28- no complaint -- he is hemodynamic stable -- transfer out of icu --pending floor bed -- lab review -- Hb --6.9 10/29 he feel well Hb --7.5 continue monitor in the hospital and PT/OT 10/30 Home when cleared by surgery. Hgb stable. Consultants: cardiology, cardiovascular surgery Pt. condition on discharge: stable Med Rec Med Rec Discharge meds: Stop taking the following medications: FUROSEMIDE (LASIX) 20 MG TAB 20 MILLIGRAM ORAL DAILY. CARVEDILOL (carvediloL) 12.5 MG TAB 12.5 MILLIGRAM ORAL TWICE DAILY. ATORVASTATIN (LIPITOR) 80 MG TAB 80 MILLIGRAM ORAL BEDTIME. Continue taking these medications: LOSARTAN (LOSARTAN) 100 MG TAB 100 MILLIGRAM ORAL DAILY. Instructions: Take at 5 pm SPIRONOLACTONE (ALDACTONE) 25 MG TAB 25 MILLIGRAM ORAL DAILY. ASPIRIN (ASPIRIN) 81 MG TAB.CHEW 81 MILLIGRAM ORAL DAILY. CLOPIDOGREL (PLAVIX) 75 MG TAB 75 MILLIGRAM ORAL DAILY. Start taking the following new medications: FERROUS SULFATE (FEOSOL) 325 MG (65 MG IRON) TAB 325 MILLIGRAM ORAL DAILY. Days = 30 Qty = 30 No Refills AMIODARONE (PACERONE) 200 MG TAB 200 MILLIGRAM ORAL TWICE DAILY. Days = 14 Qty = 21 No Refills Instructions: take 200mg BID x1 week, then 200mg x1 daily ATORVASTATIN (LIPITOR) 40 MG TAB 40 MILLIGRAM ORAL 2100 Days = 30 Qty = 30 No Refills METOPROLOL TARTRATE (LOPRESSOR) 25 MG TAB 25 MILLIGRAM ORAL EVERY 12 HOURS. Days = 30 Qty = [address] (PROTONIX) 40 MG TAB.DR 40 MILLIGRAM ORAL DAILY. Days = 30 Qty = 30 No Refills Dapagliflozin Propanediol (FARXIGA) 10 MG TAB 10 MILLIGRAM ORAL DAILY. Days = 30 Qty = 30 No Refills CYANOCOBALAMIN (VITAMIN B-12) 500 MCG TAB 500 MICROGRAM ORAL DAILY. Days = 30 Qty = 30 No Refills Objective VS/I O Last Documented: Result Date Time Pulse Ox 97 10/30 1147 B/P 126/58 10/30 1147 B/P Mean 0.0 10/30 1147 O2 Delivery Room air 10/30 1147 Temp 36.8 10/30 1147 Pulse 62 10/30 1147 Resp 20 10/30 1147 FiO2 21 10/28 0759 O2 Flow Rate 3 10/23 1121 24 hour I O ending at 0700: 10/30 0700 10/29 1900 Intake Total 360 800 Output Total 725 Balance -365 800 Intake, Oral 360 800 Number Voids 5 Output, Urine 725 Patient 69.8 kg Weight PATIENT WEIGHT: Weight (lb): 153 Weight (oz): 14.12 Weight (kg): 69.800 Results Findings/Data: Laboratory Tests: 10/30 0456 Chemistry Sodium (134 - 147 mEq/L) 141 Potassium (3.4 - 5.0 mEq/L) 3.9 Chloride (100 - 108 mEq/L) 105 Carbon Dioxide (21 - 33 mEq/l) 28 Anion Gap (0 - 20) 12 BUN (7 - 25 mg/dL) 19 Creatinine (0.6 - 1.3 mg/dL) 1.1 Glomerular Filtr Rate (80 - 90) 75.9 L Glucose (77 - 141 mg/dL) 124 Calcium (8.0 - 10.5 mg/dL) 8.7 Magnesium (1.6 - 2.6 mg/dL) 2.08 Hematology WBC (4.5 - 11.0 x10 3/uL) 9.8 RBC (4.00 - 5.60 x10 6/uL) 2.78 L Hgb (12.5 - 16.9 g/dL) 7.9 L Hct (37.5 - 50.7 %) 25.6 L MCV (81.0 - 99.0 fL) 92.1 MCH (27.0 - 33.0 pg) 28.4 MCHC (33.0 - 37.0 g/dL) 30.9 L RDW (11.5 - 14.5 %) 15.6 H Plt Count (150 - 400 x10 3/uL) 600 H MPV (7.0 - 9.0 fL) 8.6 Neut % (Auto) (56.0 - 77.0 %) 62.4 Lymph % (Auto) (14.0 - 32.0 %) 22.3 [place] % (Auto) (4.8 - 9.0 %) 9.2 H Eos % (Auto) (0.3 - 3.7 %) 4.3 H Baso % (Auto) (0.0 - 2.0 %) 0.6 Neut # (Auto) (2.0 - 7.6 x10 3/uL) 6.12 Lymph # (Auto) (1.0 - 3.8 x10 3/uL) 2.19 [place] # (Auto) (0.1 - 0.8 x10 3/uL) 0.90 H Eos # (Auto) (0.0 - 0.2 x10 3/uL) 0.42 H Baso # (Auto) (0.0 - 0.2 x10 3/uL) 0.06 Abs Immat Gran (auto) (0.00 - 0.03 x10 3/uL) 0.12 H Immature Gran % (0.0 - 2.0 %) 1.2 Nucleated RBC % (0 - 0 %) 0.3 H Nucleated RBCs # (Man) (0.0 - 0.1 x10 3/uL) 0.03 Discharge Instructions PCP )( Discharge to: Home/Self Care Discharge Instructions Additional Discharge Routines: PCP Follow-Up, Attending Follow-Up )( Diet: Cardiac )( Activity: As Tolerated, Appropriate for Age, Do not Submerge Incision, Light Duty, No Driving, No Lifting >10lbs, No Strenuous Activity, Shower Only, Sternal Precautions, Walk Follow-up Appointments PCP follow up: PCP: No Primary or Family Physician PCP follow up timeframe: In 1-2 weeks Special instructions: FOLLOW UP WITH PCP IN 1-2 WEEKS, MAKE APPOINTMENT. Attending Physician: Attending Physician: Shyla Zepeda MD Attending physician follow up timeframe: In 1-2 weeks Special instructions: CALL TO MAKE APPOINTMENT, Consulting provider 1: Provider 1: Reid Neal MD Specialty: Cardiology Special instructions: CALL TO MAKE APPOINTMENT. Consulting provider 2: Provider 2: Alec Norris MD Specialty: Cardiology Special instructions: CALL TO MAKE APPOINTMENT, Consulting provider 3: Provider 3: Deniz Ko MD Specialty: Thoracic Surgery Follow up timeframe: In 1-2 weeks Special instructions: ENSURE TO FOLLOW UP WITH PROVIDER IN APPOINTMENT DATE GIVEN at 1438 at 1623 RPT #:[id number] END OF REPORT [facility] 2024-10-30 12:24:00 [facility] ([facility]) Heart Failure Progress Note REPORT#:[id number] REPORT STATUS: Signed REPORT INITIALIZATION DATE:10/30/24 TIME: 1223 PATIENT: CLEO LONG UNIT #: [id number] ROOM/BED: G.3343-1 : 61 AGE: 63 SEX: M ATTEND: Shyla Zepeda MD ADM AUTHOR: Doni Mcarthur [employer] REPT SERVICE DT/TIME: 10/30/24 1224 * ALL edits or amendments must be made on the electronic/computer document * Doni Mcarthur 10/30/24 1224: Subjective HPI: Currently, pt is resting in bed, in good spirit, conversation, is here. Dr Neal explained GDMT adjustment Objective General VS/I O: Vital Signs Vital Signs Date Time Temp Pulse Resp B/P B/P Pulse O2 O2 Flow FiO2 Mean Ox Delivery Rate 10/30 1147 98.2 62 20 126/58 0.0 97 Room air 10/30 0720 98.1 63 24 133/64 0.0 97 Room air 10/30 0355 98.1 100 18 119/71 87.2 98 Room air 10/29 2329 98.4 69 18 119/68 85.3 97 10/29 2257 71 26 159/72 103 96 10/29 1920 96 Room air 10/29 1825 98.2 72 18 148/75 0.0 96 Room air 10/29 1727 98.1 66 20 148/75 0.0 98 Room air 10/29 1725 67 31 148/75 104 99 10/29 1724 66 29 160/77 111 99 10/29 1223 98.2 58 24 137/63 0.0 98 Room air 10/29 1221 58 34 137/63 91 98 10/29 0720 98.2 64 20 135/68 0.0 95 Room air 10/29 0716 63 43 135/68 92 96 10/29 0410 98.1 62 17 146/64 0.0 98 Room air 10/28 2313 99.1 67 18 153/69 0.0 97 Room air 10/28 1924 98 Room air 10/28 1834 98.8 74 19 148/66 0.0 96 Room air 10/28 1811 73 24 98 10/28 1800 72 35 98 10/28 1634 97.5 96 20 157/72 0.0 96 Room air 10/28 1632 62 27 157/72 104 97 24 hour I O ending at 0700: 10/30 0700 10/29 1900 Intake Total 360 800 Output Total 725 Balance -365 800 Intake, Oral 360 800 Number Voids 5 Output, Urine 725 Patient 154 lb Weight PATIENT WEIGHT: Weight (lb): 153 Weight (oz): 14.12 Weight (kg): 69.800 Medications: Active Meds + DC'd Last 24 Hrs Metoprolol Succinate (TOPROL XL) 25 MG DAILY PO Spironolactone (ALDACTONE) 25 MG DAILY PO Furosemide (LASIX) 20 MG ONCE ONE PO (DC) Dapagliflozin (FARXIGA) 10 MG DAILY PO Amiodarone HCl (CORDARONE) 200 MG BID PO Spironolactone (ALDACTONE) 12.5 MG DAILY PO (DC) Metoprolol Tartrate (LOPRESSOR) 25 MG Q12HR PO Melatonin (Melatonin) 6 MG BEDTIME PRN PRN PO Ipratropium [place] (ATROVENT) 500 MCG RTQ2H PRN PRN INH Cyanocobalamin (Vitamin B-12 500 mcg tab) 500 MCG DAILY PO Ferrous Sulfate (FERROUS SULFATE) 325 MG DAILY PO Bisacodyl (DULCOLAX) 10 MG ONCE PRN RECTAL Hydralazine HCl (APRESOLINE) 50 MG Q8H PRN PRN PO Clopidogrel Bisulfate (Plavix) 75 MG DAILY PO Polyethylene Glycol (MIRALAX) 17 GM DAILY PO Pantoprazole (PROTONIX) 40 MG DAILY@0600 PO Atorvastatin Calcium (LIPITOR) 40 MG 2100 PO Docusate Sodium (COLACE) 100 MG BID PO Sennosides (Senna Lax 8.6 MG TABLET) 17.2 MG BEDTIME PO Aspirin (ASPIRIN) 81 MG DAILY PO Acetaminophen (TYLENOL) 650 MG Q4H PRN PRN PO Acetaminophen (TYLENOL) 650 MG Q4H PRN PRN RECTAL Dextrose/Water (DEXTROSE 10% IN WATER) 125 ML ASDIR PRN IV (CKD) Dextrose/Water (DEXTROSE 10% IN WATER) 250 ML ASDIR PRN IV (CKD) Glucagon (GLUCAGON) 1 MG ASDIR PRN IM Magnesium Sulfate (MAGNESIUM SULFATE 4GM/SWFI 100ML) 100 ML ASDIR PRN IV Magnesium Sulfate (MAGNESIUM SULFATE 2GM/SWFI 50ML) 50 ML ASDIR PRN IV Magnesium Sulfate/Dextrose (MAGNESIUM SULFATE 1GM/D5W 100ML) 100 ML ASDIR PRN IV Ondansetron HCl (ZOFRAN) 4 MG Q6H PRN PRN IV Physical Exam General appearance: alert, awake, oriented, no acute distress, pleasant, conversational, no respiratory distress Cardiovascular: regular rate and rhythm Respiratory: no distress Extremities: no edema 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: alert, oriented X 3, normal speech Skin: dry, normal color Psychiatry: normal affect, normal judgment/insight, normal mood Results Findings/data: Laboratory Tests 10/30 456 Chemistry Sodium (134 - 147 mEq/L) 141 Potassium (3.4 - 5.0 mEq/L) 3.9 Chloride (100 - 108 mEq/L) 105 Carbon Dioxide (21 - 33 mEq/l) 28 Anion Gap (0 - 20) 12 BUN (7 - 25 mg/dL) 19 Creatinine (0.6 - 1.3 mg/dL) 1.1 Glomerular Filtr Rate (80 - 90) 75.9 L Glucose (77 - 141 mg/dL) 124 Calcium (8.0 - 10.5 mg/dL) 8.7 Magnesium (1.6 - 2.6 mg/dL) 2.08 Laboratory Tests 10/30 456 Hematology WBC (4.5 - 11.0 x10 3/uL) 9.8 RBC (4.00 - 5.60 x10 6/uL) 2.78 L Hgb (12.5 - 16.9 g/dL) 7.9 L Hct (37.5 - 50.7 %) 25.6 L MCV (81.0 - 99.0 fL) 92.1 MCH (27.0 - 33.0 pg) 28.4 MCHC (33.0 - 37.0 g/dL) 30.9 L RDW (11.5 - 14.5 %) 15.6 H Plt Count (150 - 400 x10 3/uL) 600 H MPV (7.0 - 9.0 fL) 8.6 Neut % (Auto) (56.0 - 77.0 %) 62.4 Lymph % (Auto) (14.0 - 32.0 %) 22.3 [place] % (Auto) (4.8 - 9.0 %) 9.2 H Eos % (Auto) (0.3 - 3.7 %) 4.3 H Baso % (Auto) (0.0 - 2.0 %) 0.6 Neut # (Auto) (2.0 - 7.6 x10 3/uL) 6.12 Lymph # (Auto) (1.0 - 3.8 x10 3/uL) 2.19 [place] # (Auto) (0.1 - 0.8 x10 3/uL) 0.90 H Eos # (Auto) (0.0 - 0.2 x10 3/uL) 0.42 H Baso # (Auto) (0.0 - 0.2 x10 3/uL) 0.06 Abs Immat Gran (auto) (0.00 - 0.03 x10 3/uL) 0.12 H Immature Gran % (0.0 - 2.0 %) 1.2 Nucleated RBC % (0 - 0 %) 0.3 H Nucleated RBCs # (Man) (0.0 - 0.1 x10 3/uL) 0.03 Laboratory Tests Test Result Date Time Chemistry B-Natriuretic Peptide (0 - 100 PG/ML) 109.0 H 10/14 2108 Telemetry interpretation: SR rate 67 Diagnosis, Assessment Plan Consultants: cardiology Free Text DxA P Notes Free text DxA P notes: This is a 63 y.o male with medical history of HTN, CHF, CAD with 7 stents, who was transfered to [facility] on 10/14/24 from [facility] with NSTEMI. LHC was performed on 10/16/24- two vessel CAD, CABG was recommended. 10/21/24 the patient underwent CABG x4 (NIEVES-LAD, SVG-DIAG, SVG-OM1, SVG-Om2) Bilateral EVH, ALAA, PP. ECHO on 10/15/24- Pre-op LVEF 35-39% ECHO on 10/25/24- Post-op * Left ventricle: Systolic function is mildly reduced. * The IVC is normal-sized [id number]% change metoprolol tartrate to Metoprolol Succinate 25mg daily Maintain MAP 70-90 Strict I O and daily standing weight Maintain K 4 and Mg 2 Trend CBC, BMP, Mg BP 133/64 SR rate 67 I O -435cc x24hrs GDMT: * Metoprolol Succinate 25mg po daily * Spironolactone 25mg po daily * Farxiga 10mg po daily CAD/s/p CABG x4 (NIEVES-LAD, SVG-DIAG, SVG-OM1, SVG-Om2) con't Meds: Amiodarone, Plavix, ASA, Atorvastatin, Metoprolol Succinate 25mg po daily con't PT/OT Hyperlipidemia: Continue statin Hypertension: on Metoprolol Succinate 25mg po daily Reid Neal 11/09/24 1542: Attestations Physician Attestation Agree w/findings plan: I agree with the history, physical, and the assessment and plan as outlined by Doni Mcarthur NP. I have personally seen and examined the patient independently, and reviewed the patient's history, exam, and all cardiac and laboratory data. I was present and supervised. Critical care time spent 35 minutes. at 1335 at 1543 RPT #:[id number] END OF REPORT [facility] 2024-10-30 11:40:00 [facility] Cardiothoracic Surgery Prog REPORT#:[id number] REPORT STATUS: Signed REPORT INITIALIZATION DATE:10/30/24 TIME: 114 PATIENT: CLEO LONG UNIT #: [id number] ROOM/BED: [place] [id number] : 62 AGE: 63 SEX: M ATTEND: Shyla Zepeda MD ADM AUTHOR: Margaret Serrano REPT SERVICE DT/TIME: 10/30/24 1140 * ALL edits or amendments must be made on the electronic/computer document * General Post-op: day 9 Status post: 10/21/2024 1. Coronary artery bypass graft surgery x4 (NIEVES to LAD, saphenous vein to diagonal, saphenous vein to first marginal, saphenous vein to second marginal). 2. Amputation of left atrial appendage. 3. Endoscopic vein harvest independent bilateral greater saphenous vein. 4. Posterior pericardiotomy. Subjective Chief complaint: s/p CABG Review of Systems Constitutional: Reports: fatigue. Denies: chills, fever, generalized weakness. Skin: Denies: abrasion, contusion, ecchymosis. Allergy/Immun: Denies: allergic reaction, hives, rhinorrhea. Eyes: Denies: redness, itching, diplopia. Respiratory: Denies: BAIG (dyspnea on exertion), hemoptysis, non productive cough, pleuritic pain. Cardiovascular: Denies: chest pain, palpitations. GI: Denies: abdominal pain, nausea, vomiting. Heme: Denies: adenopathy, bleeding, bruising. Endocrine: Denies: cold intolerance, heat intolerance, polyphagia. Neuro: Denies: confusion, dizziness, seizure, syncope. All systems rev neg: except as marked Objective General VS/I O Last Documented: Result Date Time Pulse Ox 97 10/30 720 B/P 133/64 10/30 720 B/P Mean 0.0 10/30 720 O2 Delivery Room air 10/30 720 Temp 98.1 10/30 720 Pulse 63 10/30 07 Resp 24 10/30 720 FiO2 21 10/28 0759 O2 Flow Rate 3 10/23 1121 24 hour I O ending at 0700: 10/30 0700 10/29 1900 Intake Total 360 800 Output Total 725 Balance -365 800 Intake, Oral 360 800 Number Voids 5 Output, Urine 725 Patient 69.8 kg Weight PATIENT WEIGHT: Weight (lb): 153 Weight (oz): 14.12 Weight (kg): 69.800 Dietitian Nutrition assessment The data set between the solid lines has been imported from the dietitian's assessment. BMI Calculated: 23.2 Nutrition related diagnosis: Nutrition diagnosis details: Nutrition problem: No nutrition diagnosis Nutrition etiology: Nutrition signs and symptoms: Nutrition prescription: 1. continue current cardiac diet Dietitian name: Rubi Cai RD, LD Assessment completed: 10/22/24 Physical Exam General appearance: alert, awake, oriented Wound/incision: Location: sternum Site condition: edges approximated, incision intact HEENT: anicteric, mucosal membranes moist, pupils reactive to light Neck: full range of motion, non-tender Cardiovascular: normal heart sounds, regular rate rhythm Respiratory: symmetric expansion, no distress Abdomen: soft, non-tender Genitourinary: no bladder distention, no flank pain Extremities: dry, moves all Musculoskeletal: full range of motion, painless range of motion 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: alert, oriented X 3 Skin: dry, intact Psychiatry: normal affect, normal mood Current Medications Medications: Active Meds + DC'd Last 24 Hrs Spironolactone (ALDACTONE) 25 MG DAILY PO Furosemide (LASIX) 20 MG ONCE ONE PO (DC) Dapagliflozin (FARXIGA) 10 MG DAILY PO Amiodarone HCl (CORDARONE) 200 MG BID PO Spironolactone (ALDACTONE) 12.5 MG DAILY PO (DC) Metoprolol Tartrate (LOPRESSOR) 25 MG Q12HR PO Melatonin (Melatonin) 6 MG BEDTIME PRN PRN PO Ipratropium [place] (ATROVENT) 500 MCG RTQ2H PRN PRN INH Cyanocobalamin (Vitamin B-12 500 mcg tab) 500 MCG DAILY PO Ferrous Sulfate (FERROUS SULFATE) 325 MG DAILY PO Bisacodyl (DULCOLAX) 10 MG ONCE PRN RECTAL Hydralazine HCl (APRESOLINE) 50 MG Q8H PRN PRN PO Clopidogrel Bisulfate (Plavix) 75 MG DAILY PO Polyethylene Glycol (MIRALAX) 17 GM DAILY PO Pantoprazole (PROTONIX) 40 MG DAILY@0600 PO Atorvastatin Calcium (LIPITOR) 40 MG 2100 PO Docusate Sodium (COLACE) 100 MG BID PO Sennosides (Senna Lax 8.6 MG TABLET) 17.2 MG BEDTIME PO Aspirin (ASPIRIN) 81 MG DAILY PO Acetaminophen (TYLENOL) 650 MG Q4H PRN PRN PO Acetaminophen (TYLENOL) 650 MG Q4H PRN PRN RECTAL Dextrose/Water (DEXTROSE 10% IN WATER) 125 ML ASDIR PRN IV (CKD) Dextrose/Water (DEXTROSE 10% IN WATER) 250 ML ASDIR PRN IV (CKD) Glucagon (GLUCAGON) 1 MG ASDIR PRN IM Magnesium Sulfate (MAGNESIUM SULFATE 4GM/SWFI 100ML) 100 ML ASDIR PRN IV Magnesium Sulfate (MAGNESIUM SULFATE 2GM/SWFI 50ML) 50 ML ASDIR PRN IV Magnesium Sulfate/Dextrose (MAGNESIUM SULFATE 1GM/D5W 100ML) 100 ML ASDIR PRN IV Ondansetron HCl (ZOFRAN) 4 MG Q6H PRN PRN IV Results Findings/Data: Laboratory Tests 10/30 456 Chemistry Sodium (134 - 147 mEq/L) 141 Potassium (3.4 - 5.0 mEq/L) 3.9 Chloride (100 - 108 mEq/L) 105 Carbon Dioxide (21 - 33 mEq/l) 28 Anion Gap (0 - 20) 12 BUN (7 - 25 mg/dL) 19 Creatinine (0.6 - 1.3 mg/dL) 1.1 Glomerular Filtr Rate (80 - 90) 75.9 L Glucose (77 - 141 mg/dL) 124 Calcium (8.0 - 10.5 mg/dL) 8.7 Magnesium (1.6 - 2.6 mg/dL) 2.08 Laboratory Tests 10/30 456 Hematology WBC (4.5 - 11.0 x10 3/uL) 9.8 RBC (4.00 - 5.60 x10 6/uL) 2.78 L Hgb (12.5 - 16.9 g/dL) 7.9 L Hct (37.5 - 50.7 %) 25.6 L MCV (81.0 - 99.0 fL) 92.1 MCH (27.0 - 33.0 pg) 28.4 MCHC (33.0 - 37.0 g/dL) 30.9 L RDW (11.5 - 14.5 %) 15.6 H Plt Count (150 - 400 x10 3/uL) 600 H MPV (7.0 - 9.0 fL) 8.6 Neut % (Auto) (56.0 - 77.0 %) 62.4 Lymph % (Auto) (14.0 - 32.0 %) 22.3 [place] % (Auto) (4.8 - 9.0 %) 9.2 H Eos % (Auto) (0.3 - 3.7 %) 4.3 H Baso % (Auto) (0.0 - 2.0 %) 0.6 Neut # (Auto) (2.0 - 7.6 x10 3/uL) 6.12 Lymph # (Auto) (1.0 - 3.8 x10 3/uL) 2.19 [place] # (Auto) (0.1 - 0.8 x10 3/uL) 0.90 H Eos # (Auto) (0.0 - 0.2 x10 3/uL) 0.42 H Baso # (Auto) (0.0 - 0.2 x10 3/uL) 0.06 Abs Immat Gran (auto) (0.00 - 0.03 x10 3/uL) 0.12 H Immature Gran % (0.0 - 2.0 %) 1.2 Nucleated RBC % (0 - 0 %) 0.3 H Nucleated RBCs # (Man) (0.0 - 0.1 x10 3/uL) 0.03 Results: labs reviewed, vital signs stable, ladonna personally rev'd, current med profile rev'd Quality: Trauma Gen Surg Current Medications Current medication review: Current Medications Sig/Nia Start time Last Medication Dose Route Stop Time Status Admin Aspirin 81 MG BEDTIME 10/15 2100 AC PO 01/13 2059 Acetaminophen 650 MG Q6H PRN PRN 10/15 1030 AC PO 01/13 1029 Clopidogrel Bisulfate 75 MG DAILY 10/15 1030 AC PO 01/13 1029 Morphine Sulfate 2 MG Q4H PRN PRN 10/15 1030 AC IV 10/20 1029 Ondansetron HCl 4 MG Q4H PRN PRN 10/15 1030 AC IV 01/13 1029 Albuterol/Ipratropium 3 ML X1ED STA 10/14 2127 DC 10/14 NEB 10/14 Aspirin 324 MG X1ED STA 10/14 2105 DC PO 10/14 2106 Home Medications: FUROSEMIDE (LASIX) 20 MG PO DAILY LOSARTAN 100 MG PO DAILY SPIRONOLACTONE (ALDACTONE) 25 MG PO DAILY ASPIRIN 81 MG PO DAILY CARVEDILOL (carvediloL) 12.5 MG PO BID CLOPIDOGREL (PLAVIX) 75 MG PO DAILY ATORVASTATIN (LIPITOR) 80 MG PO BEDTIME I attest that the foregoing medication list in the medical record is true, accurate, and complete to the best of my knowledge. Diagnosis, Assessment Plan Hospital course to date: This is a 63-year-old male with a past medical history of HTN, HLD, CHF and CAD with s/p 7 stents who presented with complaints of chest pain. The pain did not radiate. Labs include troponin of 71, and all other labs unremarkable. Patient was transferred to [facility] from [facility] due to NSTEMI. He denies recent fever, cough, shortness of breath, or edema. 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 Left circumflex large dominant vessel first obtuse marginal is patent has stents that looks fine another stent in the mid circumflex beyond the obtuse marginal that has 80 to 90% focal severe restenosis otherwise circumflex distally has diffuse disease distal disease. RCA small nondominant vessel. CV surgery consulted for evaluation of multi-vessel coronary artery disease. Dr. Ko has seen and examined the patient. Thank you for this kind consultation. Assessment/Plan: 1. Multi-vessel coronary artery disease s/p stents 2. Hypertension 3. Hyperlipidemia Patient not able to answer questions due to sedation effects following [place] CABG workup initiated CT chest w/o contrast Vein mapping and marking Carotid US Urinalysis MRSA/MSSA Hemoglobin A1C Patient seen and examined by Dr. Ko. All questions answered. 10/17/24 Patient alert, awake, oriented, denies any chest pain Breathing comfortable on room air, encourage incentive spirometer teaching Labs and imaging reviewed Last dose of Plavix on 10/16, check platelet response to Plavix Urinalysis negative Hemoglobin A1c 5.[address] chest and MRSA/MSSA Carotid duplex shows 50 to 69% right internal carotid artery stenosis Vein mapping reviewed, veins not visualized on left knee and calf area Echocardiogram shows EF 35 to 39%, moderate to severe diffuse hypokinesis, grade 1 diastolic dysfunction, aortic valve thickening consistent with sclerosis, mild MR, small to moderate pericardial effusion Transfer to CVN 1 Further recommendations to follow Patient seen and examined by Dr. Ko, discussed plan of care with patient, questions were answered 10/18/24 Patient alert, awake, oriented, denies any chest pain Breathing comfortable on room air, encourage incentive spirometer teaching Labs and imaging reviewed, patient had positive drug screen amphetamines and cannabis, educated patient on drug cessation Last dose of Plavix on 10/16, check platelet response to Plavix-87 Urinalysis negative Hemoglobin A1c 5.[address] chest and MRSA/MSSA- Carotid duplex shows 50 to 69% right internal carotid artery stenosis Vein mapping reviewed, veins not visualized on left knee and calf area Echocardiogram shows EF 35 to 39%, moderate to severe diffuse hypokinesis, grade 1 diastolic dysfunction, aortic valve thickening consistent with sclerosis, mild MR, small to moderate pericardial effusion Plan for surgery in upcoming week once platelet response to Plavix improved Patient seen and examined by Dr. Ko, discussed plan of care with patient, questions were answered. 10/19/24 Patient alert, awake, oriented, denies any chest pain Breathing comfortable on room air, encourage incentive spirometer teaching Labs and imaging reviewed, patient had positive drug screen amphetamines and cannabis, educated patient on drug cessation Last dose of Plavix on 10/16, check platelet response to Plavix-87 - Repeat Platelet response and TEG tomorrow morning Urinalysis negative Hemoglobin A1c 5.3 CT chest completed, showing Cardiomegaly with a 2 cm thick pericardial effusion MRSA/MSSA negative Carotid duplex shows 50 to 69% right internal carotid artery stenosis Vein mapping reviewed, veins not visualized on left knee and calf area Echocardiogram shows EF 35 to 39%, moderate to severe diffuse hypokinesis, grade 1 diastolic dysfunction, aortic valve thickening consistent with sclerosis, mild MR, small to moderate pericardial effusion Plan for surgery later in the week once platelet response to Plavix has improved Patient seen and examined by Dr. Ko, discussed plan of care with patient, questions were answered. 10/20/24 Patient alert, awake, oriented, denies any chest pain Breathing comfortable on room air, encourage incentive spirometer teaching Labs and imaging reviewed, patient had positive drug screen amphetamines and cannabis, educated patient on drug cessation Last dose of Plavix on 10/16, check platelet response to Plavix-87 -Platelet response today is 109, TEG completed ADP % inhibition 20.6, ADP 59.4 Urinalysis negative Hemoglobin A1c 5.3 CT chest completed, showing Cardiomegaly with a 2 cm thick pericardial effusion MRSA/MSSA negative Carotid duplex shows 50 to 69% right internal carotid artery stenosis Vein mapping reviewed, veins not visualized on left knee and calf area Echocardiogram shows EF 35 to 39%, moderate to severe diffuse hypokinesis, grade 1 diastolic dysfunction, aortic valve thickening consistent with sclerosis, mild MR, small to moderate pericardial effusion PFTs to be completed tomorrow Surgery will be scheduled later this week. Patient seen and examined by Dr. Ko, discussed plan of care with patient, questions were answered. 10/21/24 Events occurred yesterday and overnight, where patient had went missing for a couple hours during the evening and then the family was found vaping in the patient's room. Dr. Ko discussed with the patient the expectations and rules that must be followed while in the hospital. The patient understands, and agreed that he would abstain from any drug use or smoking. A drug toxicology screen was completed, positive for Cannabinoids. Patient will benefit from surgical revascularization, Dr. Ko explained to the patient and family the need for coronary artery bypass graft surgery. He explained in detail the operation, risks involved, STS risk score calculator, benefits, alternatives, and complications. Patient acknowledges understanding and is agreeable to proceed, all questions were answered and consent is obtained. Patient is scheduled for coronary artery bypass graft surgery this afternoon. 1. Coronary artery bypass graft surgery x4 (NIEVES to LAD, saphenous vein to diagonal, saphenous vein to first marginal, saphenous vein to second marginal). 2. Amputation of left atrial appendage. 3. Endoscopic vein harvest independent bilateral greater saphenous vein. 4. Posterior pericardiotomy. 10/22/24 POD 1 Patient alert, awake, oriented, reports pain uncontrolled Labs reviewed, hemoglobin 7.6, given 1 unit of PRBC yesterday, replace electrolytes as needed, creatinine 1.1 H H at noon Breathing comfortably on RA, encourage incentive spirometer use and deep breathing, nebs, chest x-ray reviewed Chest tube outputs LP 260cc, MS 270cc overnight, keep in place and continue monitoring, will reassess after ambulation Normal sinus rhythm, epicardial pacing wires on standby, monitoring blood pressure, CVP 7 Advance diet as tolerated, nutritional supplements, bowel regimen, monitoring BS Montiel, Urine output overnight 1020cc, strict I's O's, daily standing scale weights, +2428 24 hr- fluid balance PT/OT, OOB for all meals, encourage ambulation DVT prophylaxis with SCDs, GI prophylaxis with PPI Disposition: patient and family admitted yesterday they are not at one specific place living. Consult case management for possible SNF vs. rehab Continue supportive care ICC following Patient seen and examined by Dr. Ko. Discussed plan of care with patient, nurse and interdisciplinary team. All questions answered. 10/23/24 POD 2 Patient alert, awake, oriented, reports pain uncontrolled, on nitro gtt Labs reviewed, hgb 7.2, replace electrolytes as needed On 8L HFNC, wean as tolerated, encourage incentive spirometer use and deep breathing, nebs, chest x-ray reviewed Normal sinus rhythm, epicardial pacing wires on standby, monitoring blood pressure, increase BB to metoprolol 50mg BID, add amlodipine 5mg daily, CVP 8 Advance diet as tolerated, nutritional supplements, bowel regimen, monitoring BS Montiel, Urine output overnight 525cc, strict I's O's, daily standing scale weights, +479 24 hr- fluid balance, weight trending up PT/OT, OOB for all meals, encourage ambulation DVT prophylaxis with SCDs, GI prophylaxis with PPI Disposition: patient and family admitted they are not at one specific place living. Case management following, SNF vs. rehab Continue supportive care ICC following, DC montiel Patient seen and examined by Dr. Ko. Discussed plan of care with patient, nurse and interdisciplinary team. All questions answered. 10/24/24 POD 3 Patient alert, awake, oriented, reports pain improving. Labs reviewed, HGB 6.1- Moniotr Closely, repeat H7H this afternoon. replace electrolytes as needed On 4L, wean as tolerated, encourage incentive spirometer use and deep breathing, nebs, chest x-ray reviewed Normal sinus rhythm, epicardial pacing wires on standby, monitoring blood pressure, metoprolol 50mg BID, add amlodipine 5mg daily, Advance diet as tolerated, nutritonal supplements, bowel regimen, monitoring BS PT/OT, OOB for all meals, encourage ambulation DVT prophylaxis with SCDs, GI prophylaxis with PPI Disposition: patient and family admitted they are not at one specific place living. Case management following, SNF vs. rehab Continue supportive care ICC following, Patient seen and examined by Dr. Ko. Discussed plan of care with patient, nurse and interdisciplinary team. All questions answered. No signs of hemodynamic instability. repeat H H this afternoon. Continue OOB walking. 10/25/24 POD 4 Patient alert, awake, oriented, reports pain improving. Labs reviewed, HGB 6.4, slightly improved. No tachycardia no signs of hemodynamic instability replace electrolytes as needed On room air Normal sinus rhythm, epicardial pacing wires on standby, monitoring blood pressure, metoprolol 50mg BID, add amlodipine 5mg daily, Tolerating diet, reports bowel movements PT/OT, OOB for all meals, encourage ambulation DVT prophylaxis with SCDs, GI prophylaxis with PPI Disposition: patient and family admitted they are not at one specific place living. Rehab consulted Case management following, will need SNF vs. rehab Continue supportive care Will obtain DVT studies Patient seen and examined by Dr. Ko. Discussed plan of care with patient, nurse and interdisciplinary team. All questions answered. No signs of hemodynamic instability. repeat H H this afternoon. Continue OOB walking. 10/26/24 POD 5 Patient alert, awake, oriented, reports pain improving. Labs reviewed, HGB 6.5, slightly improved-stable No tachycardia no signs of hemodynamic instability, replace electrolytes as needed Breathing comfortable on room air, encourage incentive spirometer use Normal sinus rhythm, epicardial pacing wires on standby-discontinue today, limited echocardiogram monitoring blood pressure, metoprolol 25mg BID, amlodipine 5mg daily, Tolerating cardiac diet, reports bowel movements Strict I's and O's and daily standing scale weight, weight trending down PT/OT, OOB for all meals, encourage ambulation DVT prophylaxis with SCDs, GI prophylaxis with PPI Bilateral extremity Dopplers negative for DVT Disposition: patient and family admitted they are not at one specific place living. Rehab consulted Case management following, will need SNF vs. rehab Continue supportive care Patient seen and examined by Dr. Ko. Discussed plan of care with patient, nurse and interdisciplinary team. All questions answered. 10/27/24 POD 6 Patient alert, awake, oriented, reports pain improving. Labs reviewed, HGB 6.3-stable No tachycardia no signs of hemodynamic instability, replace electrolytes as needed Breathing comfortable on room air, encourage incentive spirometer use Normal sinus rhythm, limited echocardiogram-shows small to moderate pericardial effusion, monitor closely, monitoring blood pressure, metoprolol 25mg BID, amlodipine 5mg daily, Tolerating cardiac diet, reports bowel movements Strict I's and O's and daily standing scale weight, weight trending down PT/OT, OOB for all meals, encourage ambulation DVT prophylaxis with SCDs, GI prophylaxis with PPI Bilateral extremity Dopplers negative for DVT Disposition: patient and family admitted they are not at one specific place living. Rehab consulted Case management following, will need SNF vs. rehab Transfer to [facility] Continue supportive care Patient seen and examined by Dr. Ko. Discussed plan of care with patient, nurse and interdisciplinary team. All questions answered. 10/28/24 POD 7 Patient alert, awake, oriented, reports pain improving. Labs reviewed, HGB 6.9-stable No tachycardia no signs of hemodynamic instability, replace electrolytes as needed Breathing comfortable on room air, encourage incentive spirometer use Normal sinus rhythm, limited echocardiogram-shows small to moderate pericardial effusion, monitor closely, monitoring blood pressure, metoprolol 25mg BID, amlodipine 5mg daily, Tolerating cardiac diet, reports bowel movements Strict I's and O's and daily standing scale weight, weight trending down PT/OT, OOB for all meals, encourage ambulation DVT prophylaxis with SCDs, GI prophylaxis with PPI Bilateral extremity Dopplers negative for DVT Disposition: patient and family admitted they are not at one specific place living. Rehab consulted Case management following, will need SNF pending choice Transfer to [facility] Continue supportive care Patient seen and examined by Dr. Ko. Discussed plan of care with patient, nurse and interdisciplinary team. All questions answered. 10/29/24 POD 8 Patient alert, awake, oriented, reports pain improving. Labs reviewed, HGB 7.5 -stable, No tachycardia no signs of hemodynamic instability, replace electrolytes as needed Breathing comfortable on room air, encourage incentive spirometer use Normal sinus rhythm, limited echocardiogram- shows small to moderate pericardial effusion, monitor closely, monitoring blood pressure, metoprolol 25mg BID, amlodipine 5mg daily, aldaxtone 12.5 daily, amiodarone 200mg BID Tolerating cardiac diet, reports bowel movements Strict I's and O's and daily standing scale weight, weight trending down PT/OT, OOB for all meals, encourage ambulation DVT prophylaxis with SCDs, GI prophylaxis with PPI Bilateral extremity Dopplers negative for DVT Disposition: patient and family admitted they are not at one specific place living. Rehab consulted Case management following, will need SNF pending choice, they will discuss with family this morning choice of SNF. Continue supportive care Patient seen and examined by Dr. Ko. Discussed plan of care with patient, nurse and interdisciplinary team. All questions answered. 10/30/24 POD 9 Patient alert, awake, oriented, reports much improved pain Labs reviewed, Replace electrolytes as needed Breathing comfortable on room air, encourage incentive spirometer use Normal sinus rhythm, limited echocardiogram- shows small to moderate pericardial effusion, monitor closely, monitoring blood pressure, metoprolol 25mg BID, amlodipine 5mg daily, aldactone 12.5 daily, amiodarone 200mg BID Tolerating cardiac diet, reports bowel movements Strict I's and O's and daily standing scale weight, weight trending down PT/OT, OOB for all meals, encourage ambulation DVT prophylaxis with SCDs, GI prophylaxis with PPI Bilateral extremity Dopplers negative for DVT Disposition: patient and family admitted they are not at one specific place living. Rehab consulted Case management following, Pt wants to go home and do outpatient therapy. Consult case management for SNF post-acute referral. Patient okay to discharge once case management sets up OP rehab. Patient given post op apt, all instructions given. Patient acknowledged understanding. Patient seen and examined by Dr. Ko. Discussed plan of care with patient, nurse and interdisciplinary team. All questions answered. Consultants: cardiology Code status: full code Plan discussed with: patient, collaborating MD, nurse, interdisc care team at 1144 at 165 RPT #:[id number] END OF REPORT [facility] 2024-10-30 10:43:00 [facility] ([facility] Hospitalist Progress Note REPORT#:[id number] REPORT STATUS: Signed REPORT INITIALIZATION DATE:10/30/24 TIME: 1043 PATIENT: CLEO LONG UNIT #: [id number] ROOM[address]: [address] : [birth year] AGE: 63 SEX: M ATTEND: Shyla Zepeda MD ADM AUTHOR: nAn Marie Llanos APRN REPT SERVICE DT/TIME: 10/30/24 1043 * ALL edits or amendments must be made on the electronic/computer document * Subjective Chief complaint: ambulating in room, no complaints HPI: 63 years old male with PMH of HTN, CHF and CAD with 7 stents complaint of cp . pain did not radiate . he also found elevate troponin . he was transferred to the hospital from [facility] due to NSTEMI . no fever no cough no sob no edema no nausea no vomiting no rosalind pain no dysuria no dizziness no syncope no neurology deficit . Review of Systems All systems rev neg: except as noted Objective General VS/I O: Vital Signs: Date Time Temp Pulse Resp B/P B/P Pulse O2 O2 Flow FiO2 Mean Ox Delivery Rate 10/30 0720 36.7 63 24 133/64 0.0 97 Room air 10/30 0355 36.7 100 18 119/71 87.2 98 Room air 10/29 2329 36.9 69 18 119/68 85.3 97 10/29 2257 71 26 159/72 103 96 10/29 1920 96 Room air 10/29 1825 36.8 72 18 148/75 0.0 96 Room air 10/29 1727 36.7 66 20 148/75 0.0 98 Room air 10/29 1725 67 31 148/75 104 99 10/29 1724 66 29 160/77 111 99 10/29 1223 36.8 58 24 137/63 0.0 98 Room air 10/29 1221 58 34 137/63 91 98 24 hour I O ending at 0700: 10/30 0700 10/29 1900 Intake Total 360 800 Output Total 725 Balance -365 800 Intake, Oral 360 800 Number Voids 5 Output, Urine 725 Patient 69.8 kg Weight PATIENT WEIGHT: Weight (lb): 153 Weight (oz): 14.12 Weight (kg): 69.800 Medications: Active Meds + DC'd Last 24 Hrs Spironolactone (ALDACTONE) 25 MG DAILY PO Furosemide (LASIX) 20 MG ONCE ONE PO (DC) Dapagliflozin (FARXIGA) 10 MG DAILY PO Amiodarone HCl (CORDARONE) 200 MG BID PO Spironolactone (ALDACTONE) 12.5 MG DAILY PO (DC) Metoprolol Tartrate (LOPRESSOR) 25 MG Q12HR PO Melatonin (Melatonin) 6 MG BEDTIME PRN PRN PO Ipratropium [place] (ATROVENT) 500 MCG RTQ2H PRN PRN INH Cyanocobalamin (Vitamin B-12 500 mcg tab) 500 MCG DAILY PO Ferrous Sulfate (FERROUS SULFATE) 325 MG DAILY PO Bisacodyl (DULCOLAX) 10 MG ONCE PRN RECTAL Hydralazine HCl (APRESOLINE) 50 MG Q8H PRN PRN PO Clopidogrel Bisulfate (Plavix) 75 MG DAILY PO Polyethylene Glycol (MIRALAX) 17 GM DAILY PO Pantoprazole (PROTONIX) 40 MG DAILY@0600 PO Atorvastatin Calcium (LIPITOR) 40 MG 2100 PO Docusate Sodium (COLACE) 100 MG BID PO Sennosides (Senna Lax 8.6 MG TABLET) 17.2 MG BEDTIME PO Aspirin (ASPIRIN) 81 MG DAILY PO Acetaminophen (TYLENOL) 650 MG Q4H PRN PRN PO Acetaminophen (TYLENOL) 650 MG Q4H PRN PRN RECTAL Dextrose/Water (DEXTROSE 10% IN WATER) 125 ML ASDIR PRN IV (CKD) Dextrose/Water (DEXTROSE 10% IN WATER) 250 ML ASDIR PRN IV (CKD) Glucagon (GLUCAGON) 1 MG ASDIR PRN IM Magnesium Sulfate (MAGNESIUM SULFATE 4GM/SWFI 100ML) 100 ML ASDIR PRN IV Magnesium Sulfate (MAGNESIUM SULFATE 2GM/SWFI 50ML) 50 ML ASDIR PRN IV Magnesium Sulfate/Dextrose (MAGNESIUM SULFATE 1GM/D5W 100ML) 100 ML ASDIR PRN IV Ondansetron HCl (ZOFRAN) 4 MG Q6H PRN PRN IV Physical Exam General appearance: alert, awake, oriented, no acute distress, no respiratory distress Head/Eyes: atraumatic, normal conjunctiva/sclera, normal eyelids/periorb. Neck: full range of motion, non-tender, normal thyroid Cardiovascular: normal heart sounds, regular rate rhythm Respiratory: aerating well, clear to auscultation Abdomen: non-tender, normal bowel sounds, soft, no distention Extremities: moves all, no calf tenderness, no edema 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: alert, oriented X 3, CNII-XII intact, normal speech, no motor deficits, no sensory deficits Skin: dry, intact Psychiatry: normal affect, normal judgment/insight Results Findings/Data: Laboratory Tests 10/30 456 Chemistry Sodium (134 - 147 mEq/L) 141 Potassium (3.4 - 5.0 mEq/L) 3.9 Chloride (100 - 108 mEq/L) 105 Carbon Dioxide (21 - 33 mEq/l) 28 Anion Gap (0 - 20) 12 BUN (7 - 25 mg/dL) 19 Creatinine (0.6 - 1.3 mg/dL) 1.1 Glomerular Filtr Rate (80 - 90) 75.9 L Glucose (77 - 141 mg/dL) 124 Calcium (8.0 - 10.5 mg/dL) 8.7 Magnesium (1.6 - 2.6 mg/dL) 2.08 Laboratory Tests 10/30 456 Hematology WBC (4.5 - 11.0 x10 3/uL) 9.8 RBC (4.00 - 5.60 x10 6/uL) 2.78 L Hgb (12.5 - 16.9 g/dL) 7.9 L Hct (37.5 - 50.7 %) 25.6 L MCV (81.0 - 99.0 fL) 92.1 MCH (27.0 - 33.0 pg) 28.4 MCHC (33.0 - 37.0 g/dL) 30.9 L RDW (11.5 - 14.5 %) 15.6 H Plt Count (150 - 400 x10 3/uL) 600 H MPV (7.0 - 9.0 fL) 8.6 Neut % (Auto) (56.0 - 77.0 %) 62.4 Lymph % (Auto) (14.0 - 32.0 %) 22.3 [place] % (Auto) (4.8 - 9.0 %) 9.2 H Eos % (Auto) (0.3 - 3.7 %) 4.3 H Baso % (Auto) (0.0 - 2.0 %) 0.6 Neut # (Auto) (2.0 - 7.6 x10 3/uL) 6.12 Lymph # (Auto) (1.0 - 3.8 x10 3/uL) 2.19 [place] # (Auto) (0.1 - 0.8 x10 3/uL) 0.90 H Eos # (Auto) (0.0 - 0.2 x10 3/uL) 0.42 H Baso # (Auto) (0.0 - 0.2 x10 3/uL) 0.06 Abs Immat Gran (auto) (0.00 - 0.03 x10 3/uL) 0.12 H Immature Gran % (0.0 - 2.0 %) 1.2 Nucleated RBC % (0 - 0 %) 0.3 H Nucleated RBCs # (Man) (0.0 - 0.1 x10 3/uL) 0.03 Diagnosis, Assessment Plan Consultants: cardiology Free Text DxA P Notes Free text DxA P notes: 63 YO male with CAD with stent Substance use HTN heart disease with HF Chronic systolic HF EF 35-39% Right carotid stenosis 50-69% anemia -- due to acute blood loss 10/15 tele cardiology consult continue ASA/plavix /lipitor CHF -- continue lasix and aldactone -- cozaar HTN- continue coreg 10/16- no cp no sob -- cath today -- post cath -- CABG evaluation 10/17 CABG next week, medically stable to proceed 10/18 CABG next week, Chest CT scan showed ? Pericardal effusion. stable to proceed 10/19 Vitals and labs stable today. No acute complaints. CABG later then week per surgeon. 10/20 labs and vitals remains stable. CABG later this week when surgery schedules. 10/22 S/P CABG 10/21. Continue postop care per CT surgery in ICU. Monitor chest tube OP. Monitor hgb, transfuse if hgb <7. S/P 1 unit PRBC. PT/OT for OOB. DC planning, possible SNF vs IPR. 10/23 Continue post-op care. PT/OT. Chest tubes out. Labs noted, CMP ok. Monitor Hgb and WBC. Rehab eval. 10/24- he sit on the chair no sob no dizziness -- he is hemodynamic stable -- HB-- 6.3- 6.1-- monitor H H --blood transfuse as CV surgeon and critical care --continue monitor in CV icu -- lab review 10/25 -- he had bowel movement . he is doing well . ambulate with PT -- he is hemodynamic stable -- H h -- 6.4- stable -- as cv surgeon -- continue PT/OT -- CM-- rehab or SNF placement 10/27 Continue post-op care per surgeon. Monitor H+H, no order for transfusion at this time, same range for few days, asymptomatic. PT/OT. To floor when cardio surg ok. 10/28- no complaint -- he is hemodynamic stable -- transfer out of icu --pending floor bed -- lab review -- Hb --6.9 10/29 he feel well Hb --7.5 continue monitor in the hospital and PT/OT 10/30 Home when cleared by surgery. Hgb stable. at 1330 at 0924 RPT #:[id number] END OF REPORT [facility] 2024-10-30 09:49:00 [facility]) Rehab Progress Note REPORT#:[id number] REPORT STATUS: Signed REPORT INITIALIZATION DATE:10/30/24 TIME: 948 PATIENT: CLEO LONG UNIT #: [id number] ROOM/BED: [place] [id number] : 61 AGE: 63 SEX: M ATTEND: Shyla Zepeda MD ADM AUTHOR: Mitch Bell REPT SERVICE DT/TIME: 10/30/24 0949 * ALL edits or amendments must be made on the electronic/computer document * Subjective Chief complaint: rehab follow-up states he is doing well No new issues Pain controlled Denies NOLASCO/N/V/D/CP 14 systems reviewed and neg. except that above. Objective General VS: Vital Signs: Date Time Temp Pulse Resp B/P B/P Pulse O2 O2 Flow FiO2 Mean Ox Delivery Rate 10/30 0720 98.1 63 24 133/64 0.0 97 Room air 10/30 0355 98.1 100 18 119/71 87.2 98 Room air 10/29 2329 98.4 69 18 119/68 85.3 97 10/29 2257 71 26 159/72 103 96 10/29 1920 96 Room air 10/29 1825 98.2 72 18 148/75 0.0 96 Room air 10/29 1727 98.1 66 20 148/75 0.0 98 Room air 10/29 1725 67 31 148/75 104 99 10/29 1724 66 29 160/77 111 99 10/29 1223 98.2 58 24 137/63 0.0 98 Room air 10/29 1221 58 34 137/63 91 98 PATIENT WEIGHT: Weight (lb): 153 Weight (oz): 14.12 Weight (kg): 69.800 Medications: Active Meds + DC'd Last 24 Hrs Spironolactone (ALDACTONE) 25 MG DAILY PO Furosemide (LASIX) 20 MG ONCE ONE PO (DC) Dapagliflozin (FARXIGA) 10 MG DAILY PO Amiodarone HCl (CORDARONE) 200 MG BID PO Spironolactone (ALDACTONE) 12.5 MG DAILY PO (DC) Metoprolol Tartrate (LOPRESSOR) 25 MG Q12HR PO Melatonin (Melatonin) 6 MG BEDTIME PRN PRN PO Ipratropium [place] (ATROVENT) 500 MCG RTQ2H PRN PRN INH Cyanocobalamin (Vitamin B-12 500 mcg tab) 500 MCG DAILY PO Ferrous Sulfate (FERROUS SULFATE) 325 MG DAILY PO Bisacodyl (DULCOLAX) 10 MG ONCE PRN RECTAL Hydralazine HCl (APRESOLINE) 50 MG Q8H PRN PRN PO Clopidogrel Bisulfate (Plavix) 75 MG DAILY PO Polyethylene Glycol (MIRALAX) 17 GM DAILY PO Pantoprazole (PROTONIX) 40 MG DAILY@0600 PO Atorvastatin Calcium (LIPITOR) 40 MG 2100 PO Docusate Sodium (COLACE) 100 MG BID PO Sennosides (Senna Lax 8.6 MG TABLET) 17.2 MG BEDTIME PO Aspirin (ASPIRIN) 81 MG DAILY PO Acetaminophen (TYLENOL) 650 MG Q4H PRN PRN PO Acetaminophen (TYLENOL) 650 MG Q4H PRN PRN RECTAL Dextrose/Water (DEXTROSE 10% IN WATER) 125 ML ASDIR PRN IV (CKD) Dextrose/Water (DEXTROSE 10% IN WATER) 250 ML ASDIR PRN IV (CKD) Glucagon (GLUCAGON) 1 MG ASDIR PRN IM Magnesium Sulfate (MAGNESIUM SULFATE 4GM/SWFI 100ML) 100 ML ASDIR PRN IV Magnesium Sulfate (MAGNESIUM SULFATE 2GM/SWFI 50ML) 50 ML ASDIR PRN IV Magnesium Sulfate/Dextrose (MAGNESIUM SULFATE 1GM/D5W 100ML) 100 ML ASDIR PRN IV Ondansetron HCl (ZOFRAN) 4 MG Q6H PRN PRN IV Functional Progress Functional progress: Weightbearing: No Restriction Ambulation Distance: 500 FT Progression: Forward Assistance Level: Supervision or Set-up Gait Deviations: Decreased Aliya Forward Flexed Posture Head Down AMPA Mobility: Yes Document Pain/Education: Yes Advanced Progression: No Effects of Treatment: Balance Improved [place] of care decreased Cardio tolerance improved Function Improved Tolerance increased Post Treatment Precautions: In Chair Call Light in Reach Nursing Notified Pulse OX in Place SCD in Place Bed Alarm On Review Plan of Care: Yes PT charges: Gait Training [id number] Gait Cmt: MOD I W BED MOBILITY, SBA FOR TRANSFERS. AMBULATED WELL 500 FT W DEVICE SBA, ATTEMPTED NO AD AND Pt REQUIRED MIN/ CGA FOR SAFETY. Pt SAFE TO WALK W NURSING USING DEVICE. If this is the patient's last treatment, this entry serves as the discharge summary: Y Start Time: 901 Stop Time: 924 Treatment Time: ( minutes) 0:23 Completed by: John Watt BED MOBILITY: Yes Rolling Right/Left: Modified [place] Supine to Sit: Modified [place] Sit to Supine: Modified [place] TRANSFERS: Yes Bed to/from chair: Supervision or Set-up Sit to/from stand: Supervision or Set-up Physical Exam General appearance: alert, awake Psych: alert, oriented x 3 HEENT: anicteric, mucosal membranes moist Neck: supple, no JVD Cardiovascular: regular rate rhythm, no murmur Respiratory: diminished breath sounds, aerating well, clear bilaterally Abdomen: bowel sounds present, non-distended, soft, non-tender Skin: dry, intact, no rash, surgical incision D/I Musculoskeletal - general: Musculoskeletal - general: swelling (BLE) 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: alert, oriented X 3 Results Findings/Data: Laboratory Tests: 10/30 0456 Chemistry Sodium (134 - 147 mEq/L) 141 Potassium (3.4 - 5.0 mEq/L) 3.9 Chloride (100 - 108 mEq/L) 105 Carbon Dioxide (21 - 33 mEq/l) 28 Anion Gap (0 - 20) 12 BUN (7 - 25 mg/dL) 19 Creatinine (0.6 - 1.3 mg/dL) 1.1 Glomerular Filtr Rate (80 - 90) 75.9 L Glucose (77 - 141 mg/dL) 124 Calcium (8.0 - 10.5 mg/dL) 8.7 Magnesium (1.6 - 2.6 mg/dL) 2.08 Hematology WBC (4.5 - 11.0 x10 3/uL) 9.8 RBC (4.00 - 5.60 x10 6/uL) 2.78 L Hgb (12.5 - 16.9 g/dL) 7.9 L Hct (37.5 - 50.7 %) 25.6 L MCV (81.0 - 99.0 fL) 92.1 MCH (27.0 - 33.0 pg) 28.4 MCHC (33.0 - 37.0 g/dL) 30.9 L RDW (11.5 - 14.5 %) 15.6 H Plt Count (150 - 400 x10 3/uL) 600 H MPV (7.0 - 9.0 fL) 8.6 Neut % (Auto) (56.0 - 77.0 %) 62.4 Lymph % (Auto) (14.0 - 32.0 %) 22.3 [place] % (Auto) (4.8 - 9.0 %) 9.2 H Eos % (Auto) (0.3 - 3.7 %) 4.3 H Baso % (Auto) (0.0 - 2.0 %) 0.6 Neut # (Auto) (2.0 - 7.6 x10 3/uL) 6.12 Lymph # (Auto) (1.0 - 3.8 x10 3/uL) 2.19 [place] # (Auto) (0.1 - 0.8 x10 3/uL) 0.90 H Eos # (Auto) (0.0 - 0.2 x10 3/uL) 0.42 H Baso # (Auto) (0.0 - 0.2 x10 3/uL) 0.06 Abs Immat Gran (auto) (0.00 - 0.03 x10 3/uL) 0.12 H Immature Gran % (0.0 - 2.0 %) 1.2 Nucleated RBC % (0 - 0 %) 0.3 H Nucleated RBCs # (Man) (0.0 - 0.1 x10 3/uL) 0.03 Diagnosis, Assessment Plan Free Text A P: Cardiac debility Multivessel CAD S/p CABG x 4 Generalized weakness Impaired ADLs, mobility, gait Postoperative anemia History of CHF HTN HLD Plan: Continue PT/OT Out of bed to chair Work on ADLs, strength, bed mobility, transfers, gait Sternal precaution Increase endurance Fall precautions Monitor PO intake and nutrition Strict decubitus precautions Cont. current medications Monitor labs Advance therapies as tolerated+ HGB 6.3, 6.1, 6.4, 6.5, 6.3 6.9, 7.5, 7.9 ClOF: Transfers: SPV to Felipe Pt now ambulating 500ft SPV WC handles Pt is to high level for IPR If there are still medical issues to be monitored consider SNF setting. Discussed with and pt about CLOF and being to high for IPR -Answered all questions Consultants: cardiology Rehab attestation: . at 1843 RPT #:[id number] END OF REPORT [facility] 2024-10-30 05:50:00 [facility] ([facility]) Cardiology Progress Note REPORT#:[id number] REPORT STATUS: Signed REPORT INITIALIZATION DATE:10/30/24 TIME: 05 PATIENT: CLEO LONG UNIT #: [id number] [place] [facility] [place] : 61 AGE: 63 SEX: M ATTEND: Shyla Zepeda MD ADM AUTHOR: Alec Norris MD REPT SERVICE DT/TIME: 10/30/24 0550 * ALL edits or amendments must be made on the electronic/computer document * Objective General VS/I O: 24 hour I O ending at 0700: 10/30 0700 10/29 1900 Intake Total 360 800 Output Total 725 Balance -365 800 Intake, Oral 360 800 Number Voids 5 Output, Urine 725 Patient 69.8 kg Weight Vital Signs: Date Time Temp Pulse Resp B/P B/P Pulse O2 O2 Flow FiO2 Mean Ox Delivery Rate 10/30 0355 36.7 100 18 119/71 87.2 98 Room air 10/299 36.9 69 18 119/68 85.3 97 10/29 2257 71 26 159/72 103 96 10/29 1920 96 Room air 10/29 1825 36.8 72 18 148/75 0.0 96 Room air 10/29 1727 36.7 66 20 148/75 0.0 98 Room air 10/29 1725 67 31 148/75 104 99 10/29 1724 66 29 160/77 111 99 10/29 1223 36.8 58 24 137/63 0.0 98 Room air 10/29 1221 58 34 137/63 91 98 10/29 0720 36.8 64 20 135/68 0.0 95 Room air 10/29 0716 63 43 135/68 92 96 PATIENT WEIGHT: Weight (lb): 153 Weight (oz): 14.12 Weight (kg): 69.800 Medications: Active Meds + DC'd Last 24 Hrs Spironolactone (ALDACTONE) 25 MG DAILY PO Furosemide (LASIX) 20 MG ONCE ONE PO (DC) Dapagliflozin (FARXIGA) 10 MG DAILY PO Amiodarone HCl (CORDARONE) 200 MG BID PO Spironolactone (ALDACTONE) 12.5 MG DAILY PO (DC) Metoprolol Tartrate (LOPRESSOR) 25 MG Q12HR PO Melatonin (Melatonin) 6 MG BEDTIME PRN PRN PO Ipratropium [place] (ATROVENT) 500 MCG RTQ2H PRN PRN INH Cyanocobalamin (Vitamin B-12 500 mcg tab) 500 MCG DAILY PO Ferrous Sulfate (FERROUS SULFATE) 325 MG DAILY PO Bisacodyl (DULCOLAX) 10 MG ONCE PRN RECTAL Hydralazine HCl (APRESOLINE) 50 MG Q8H PRN PRN PO Clopidogrel Bisulfate (Plavix) 75 MG DAILY PO Polyethylene Glycol (MIRALAX) 17 GM DAILY PO Pantoprazole (PROTONIX) 40 MG DAILY@0600 PO Atorvastatin Calcium (LIPITOR) 40 MG 2100 PO Docusate Sodium (COLACE) 100 MG BID PO Sennosides (Senna Lax 8.6 MG TABLET) 17.2 MG BEDTIME PO Aspirin (ASPIRIN) 81 MG DAILY PO Acetaminophen (TYLENOL) 650 MG Q4H PRN PRN PO Acetaminophen (TYLENOL) 650 MG Q4H PRN PRN RECTAL Dextrose/Water (DEXTROSE 10% IN WATER) 125 ML ASDIR PRN IV (CKD) Dextrose/Water (DEXTROSE 10% IN WATER) 250 ML ASDIR PRN IV (CKD) Glucagon (GLUCAGON) 1 MG ASDIR PRN IM Magnesium Sulfate (MAGNESIUM SULFATE 4GM/SWFI 100ML) 100 ML ASDIR PRN IV Magnesium Sulfate (MAGNESIUM SULFATE 2GM/SWFI 50ML) 50 ML ASDIR PRN IV Magnesium Sulfate/Dextrose (MAGNESIUM SULFATE 1GM/D5W 100ML) 100 ML ASDIR PRN IV Ondansetron HCl (ZOFRAN) 4 MG Q6H PRN PRN IV Sodium Chloride (SODIUM CHLORIDE 0.9%) 250 ML Q24H IV (DC) Physical Exam General appearance: alert, awake Cardiovascular: CV assessment: regular rate and rhythm, BP pulses = bilaterally, normal heart sounds, pedal pulses present, no ectopy, no heave, no murmur Respiratory: clear to auscultation Diagnosis, Assessment Plan Free Text DxA P Notes Free Text DxA P Notes: 1. CAD: Two-vessel, plan for CABG sometime next week. 2. Hyperlipidemia: Continue statin 3. Hypertension: Continue carvedilol s/p cabg today extubated chest tubes in place stable hemodynamics no symptoms clinically better 1. CAD: Two-vessel, plan for CABG sometime next week. 2. Hyperlipidemia: Continue statin 3. Hypertension: Continue carvedilol s/p cabg today extubated chest tubes in place stable hemodynamics no symptoms clinically better Patient alert, awake, oriented, reports pain improving. Labs reviewed, HGB 6.5, slightly improved-stable No tachycardia no signs of hemodynamic instability, replace electrolytes as needed Breathing comfortable on room air, encourage incentive spirometer use Normal sinus rhythm, epicardial pacing wires on standby-discontinue today, limited echocardiogram monitoring blood pressure, metoprolol 25mg BID, amlodipine 5mg daily, Tolerating cardiac diet, reports bowel movements Strict I's and O's and daily standing scale weight, weight trending down PT/OT, OOB for all meals, encourage ambulation DVT prophylaxis with SCDs, GI prophylaxis with PPI Bilateral extremity Dopplers negative for DVT Disposition: patient and family admitted they are not at one specific place living. Rehab consulted ambulant march at 1903 RPT #:[id number] END OF REPORT [facility] 2024-10-29 16:21:00 [facility] Rehab Progress Note REPORT#:[id number] REPORT STATUS: Signed REPORT INITIALIZATION DATE:10/29/24 TIME: 1620 PATIENT: CLEO LONG UNIT #: [id number] ROOM/BED: 3343-1 : 62 AGE: 63 SEX: M ATTEND: Shyla Zepeda MD ADM AUTHOR: Shannon Bell NP REPT SERVICE DT/TIME: 10/29/24 1621 * ALL edits or amendments must be made on the electronic/computer document * Subjective Chief complaint: rehab follow-up states he is doing well No new issues Pain controlled /denied sob Objective General VS: Vital Signs: Date Time Temp Pulse Resp B/P B/P Pulse O2 O2 Flow FiO2 Mean Ox Delivery Rate 10/29 1223 98.2 58 24 137/63 0.0 98 Room air 10/29 1221 58 34 137/63 91 98 10/29 0720 98.2 64 20 135/68 0.0 95 Room air 10/29 0716 63 43 135/68 92 96 10/29 0410 98.1 62 17 146/64 0.0 98 Room air 10/28 2313 99.1 67 18 153/69 0.0 97 Room air 10/28 1924 98 Room air 10/28 1834 98.8 74 19 148/66 0.0 96 Room air 10/28 1811 73 24 98 10/28 1800 72 35 98 10/28 1634 97.5 96 20 157/72 0.0 96 Room air 10/28 1632 62 27 157/72 104 97 PATIENT WEIGHT: Weight (lb): 153 Weight (oz): 14.12 Weight (kg): 69.800 Medications: Active Meds + DC'd Last 24 Hrs Spironolactone (ALDACTONE) 25 MG DAILY PO Furosemide (LASIX) 20 MG ONCE ONE PO (DC) Dapagliflozin (FARXIGA) 10 MG DAILY PO Amiodarone HCl (CORDARONE) 200 MG BID PO Spironolactone (ALDACTONE) 12.5 MG DAILY PO (DC) Metoprolol Tartrate (LOPRESSOR) 25 MG Q12HR PO Melatonin (Melatonin) 6 MG BEDTIME PRN PRN PO Ipratropium [place] (ATROVENT) 500 MCG RTQ2H PRN PRN INH Cyanocobalamin (Vitamin B-12 500 mcg tab) 500 MCG DAILY PO Ferrous Sulfate (FERROUS SULFATE) 325 MG DAILY PO Bisacodyl (DULCOLAX) 10 MG ONCE PRN RECTAL Hydralazine HCl (APRESOLINE) 50 MG Q8H PRN PRN PO Clopidogrel Bisulfate (Plavix) 75 MG DAILY PO Polyethylene Glycol (MIRALAX) 17 GM DAILY PO Pantoprazole (PROTONIX) 40 MG DAILY@0600 PO Atorvastatin Calcium (LIPITOR) 40 MG 2100 PO Docusate Sodium (COLACE) 100 MG BID PO Sennosides (Senna Lax 8.6 MG TABLET) 17.2 MG BEDTIME PO Aspirin (ASPIRIN) 81 MG DAILY PO Acetaminophen (TYLENOL) 650 MG Q4H PRN PRN PO Acetaminophen (TYLENOL) 650 MG Q4H PRN PRN RECTAL Dextrose/Water (DEXTROSE 10% IN WATER) 125 ML ASDIR PRN IV (CKD) Dextrose/Water (DEXTROSE 10% IN WATER) 250 ML ASDIR PRN IV (CKD) Glucagon (GLUCAGON) 1 MG ASDIR PRN IM Magnesium Sulfate (MAGNESIUM SULFATE 4GM/SWFI 100ML) 100 ML ASDIR PRN IV Magnesium Sulfate (MAGNESIUM SULFATE 2GM/SWFI 50ML) 50 ML ASDIR PRN IV Magnesium Sulfate/Dextrose (MAGNESIUM SULFATE 1GM/D5W 100ML) 100 ML ASDIR PRN IV Ondansetron HCl (ZOFRAN) 4 MG Q6H PRN PRN IV Sodium Chloride (SODIUM CHLORIDE 0.9%) 250 ML Q24H IV (DC) Physical Exam General appearance: alert, awake Psych: alert, oriented x 3 HEENT: anicteric, mucosal membranes moist Neck: supple, no JVD Cardiovascular: regular rate rhythm, no murmur Respiratory: diminished breath sounds, aerating well, clear bilaterally Abdomen: bowel sounds present, non-distended, soft, non-tender Skin: dry, intact, no rash, surgical incision D/I Musculoskeletal - general: Musculoskeletal - general: swelling (BLE) 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: alert, oriented X 3 Results Findings/Data: Laboratory Tests: 10/29 0414 Chemistry Sodium (134 - 147 mEq/L) 141 Potassium (3.4 - 5.0 mEq/L) 4.1 Chloride (100 - 108 mEq/L) 106 Carbon Dioxide (21 - 33 mEq/l) 28 Anion Gap (0 - 20) 11 BUN (7 - 25 mg/dL) 17 Creatinine (0.6 - 1.3 mg/dL) 1.0 Glomerular Filtr Rate (80 - 90) 85.1 Glucose (77 - 141 mg/dL) 103 Calcium (8.0 - 10.5 mg/dL) 8.5 Magnesium (1.6 - 2.6 mg/dL) 1.96 Hematology WBC (4.5 - 11.0 x10 3/uL) 11.7 H RBC (4.00 - 5.60 x10 6/uL) 2.64 L Hgb (12.5 - 16.9 g/dL) 7.5 L Hct (37.5 - 50.7 %) 24.1 L MCV (81.0 - 99.0 fL) 91.3 MCH (27.0 - 33.0 pg) 28.4 MCHC (33.0 - 37.0 g/dL) 31.1 L RDW (11.5 - 14.5 %) 15.2 H Plt Count (150 - 400 x10 3/uL) 542 H MPV (7.0 - 9.0 fL) 8.6 Neut % (Auto) (56.0 - 77.0 %) 67.3 Lymph % (Auto) (14.0 - 32.0 %) 18.9 [place] % (Auto) (4.8 - 9.0 %) 8.4 Eos % (Auto) (0.3 - 3.7 %) 3.6 Baso % (Auto) (0.0 - 2.0 %) 0.6 Neut # (Auto) (2.0 - 7.6 x10 3/uL) 7.88 H Lymph # (Auto) (1.0 - 3.8 x10 3/uL) 2.22 [place] # (Auto) (0.1 - 0.8 x10 3/uL) 0.99 H Eos # (Auto) (0.0 - 0.2 x10 3/uL) 0.42 H Baso # (Auto) (0.0 - 0.2 x10 3/uL) 0.07 Abs Immat Gran (auto) (0.00 - 0.03 x10 3/uL) 0.14 H Immature Gran % (0.0 - 2.0 %) 1.2 Nucleated RBC % (0 - 0 %) 0.2 H Nucleated RBCs # (Man) (0.0 - 0.1 x10 3/uL) 0.02 Diagnosis, Assessment Plan Free Text A P: Cardiac debility Multivessel CAD S/p CABG x 4 Generalized weakness Impaired ADLs, mobility, gait Postoperative anemia History of CHF HTN HLD Plan: Continue PT/OT Out of bed to chair Work on ADLs, strength, bed mobility, transfers, gait Sternal precaution Increase endurance Fall precautions Monitor PO intake and nutrition Strict decubitus precautions Cont. current medications Monitor labs Advance therapies as tolerated+ HGB 6.9 ClOF: Transfers: SPV to [facility] Pt now ambulating 500ft SPV WC handles Pt is to high level for IPR If there are still medical issues to be monitored consider SNF setting. Discussed with and pt about CLOF and being to high for IPR -Answered all questions Consultants: cardiology Rehab attestation: Face to face exam completed. at 1623 RPT #:[id number] END OF REPORT [facility] 2024-10-29 13:37:00 [facility] ([facility]) Heart Failure Progress Note REPORT#:[id number] REPORT STATUS: Signed REPORT INITIALIZATION DATE:10/29/24 TIME: 1336 PATIENT: CLEO LONG UNIT #: [id number] ROOM/BED: [place] [id number] : 61 AGE: 63 SEX: M ATTEND: Shyla Zepeda MD ADM AUTHOR: Doni Mcarthur [employer] REPT SERVICE DT/TIME: 10/29/241336 * ALL edits or amendments must be made on the electronic/computer document * Doni Mcarthur 10/29/241336: Subjective HPI: Currently, pt is resting in chair, in good spirit, conversation, is here. Dr Neal explained mild volume overload and adjusting diuretic and GDMT. Objective General VS/I O: Vital Signs Vital Signs Date Time Temp Pulse Resp B/P B/P Pulse O2 O2 Flow FiO2 Mean Ox Delivery Rate 10/29 1223 98.2 58 24 137/63 0.0 98 Room air 10/29 1221 58 34 137/63 91 98 10/29 0720 98.2 64 20 135/68 0.0 95 Room air 10/29 0716 63 43 135/68 92 96 10/29 0410 98.1 62 17 146/64 0.0 98 Room air 10/28 2313 99.1 67 18 153/69 0.0 97 Room air 10/28 1924 98 Room air 10/28 1834 98.8 74 19 148/66 0.0 96 Room air 10/28 1811 73 24 98 10/28 1800 72 35 98 18 1634 97.5 96 20 157/72 0.0 96 Room air 10/28 1632 62 27 157/72 104 97 18 1326 60 41 97 18 1300 59 25 98 10/28 1238 98.1 60 24 133/66 0.0 99 Room air 10/28 1233 60 27 133/66 91 99 18 1201 57 41 134/67 94 99 18 1146 55 24 128/85 98 98 18 1130 55 30 134/70 98 98 18 1118 98.2 54 24 142/63 0.0 97 Room air 10/28 1038 60 24 133/61 88 97 /18 1020 66 25 137/71 99 98 /18 0934 68 24 143/68 98 97 /18 0901 66 29 113/88 93 98 /18 0831 70 23 128/62 89 95 /18 0820 70 26 151/70 100 95 /18 0800 98.1 18 0759 96 Room air 21 18 0731 65 24 137/63 90 97 /18 0700 66 24 147/72 103 96 12/18 0455 68 22 12/18 0430 65 16 188/82 118 12/18 0400 67 29 141/72 100 97 12/18 0331 66 26 144/72 101 96 12/18 0300 64 20 155/70 100 97 /18 0231 68 29 148/116 128 96 /18 0200 65 34 12/18 0130 62 29 150/82 110 97 /18 0101 66 24 147/111 123 96 /18 0100 62 36 97 12/18 0030 62 29 163/75 108 97 10/28 0000 62 25 147/73 102 97 10/27 2330 63 29 157/76 109 97 10/27 2300 60 21 151/73 99 97 10/27 2231 59 19 154/67 96 97 10/27 2206 59 26 133/62 89 97 10/27 2200 60 27 96 10/27 2130 58 20 168/77 110 98 10/27 2101 64 14 162/72 104 98 10/27 2100 64 13 98 10/27 2030 69 21 136/63 91 96 10/27 2015 96 Room air 21 10/27 2005 72 21 133/63 91 96 10/27 2000 98.2 10/27 2000 72 22 96 10/27 1930 72 18 167/70 101 10/27 1901 77 22 153/65 94 10/27 1900 76 33 10/27 1731 71 32 122/70 89 97 10/27 1700 67 26 159/71 102 98 10/27 1600 65 29 161/85 117 98 10/27 1501 63 117/79 91 98 24 hour I O ending at 0700: 10/29 0700 10/28 1900 Intake Total 150 580 Output Total 600 1100 Balance -450 -520 Intake, Oral 150 580 Output, Urine 600 1100 Patient 154 lb Weight Weight Standing scale Measurement Method PATIENT WEIGHT: Weight (lb): 153 Weight (oz): 14.12 Weight (kg): 69.800 Medications: Active Meds + DC'd Last 24 Hrs Spironolactone (ALDACTONE) 25 MG DAILY PO Furosemide (LASIX) 20 MG ONCE ONE PO (DC) Dapagliflozin (FARXIGA) 10 MG DAILY PO Amiodarone HCl (CORDARONE) 200 MG BID PO Spironolactone (ALDACTONE) 12.5 MG DAILY PO (DC) Metoprolol Tartrate (LOPRESSOR) 25 MG Q12HR PO Melatonin (Melatonin) 6 MG BEDTIME PRN PRN PO Ipratropium [place] (ATROVENT) 500 MCG RTQ2H PRN PRN INH Cyanocobalamin (Vitamin B-12 500 mcg tab) 500 MCG DAILY PO Ferrous Sulfate (FERROUS SULFATE) 325 MG DAILY PO Bisacodyl (DULCOLAX) 10 MG ONCE PRN RECTAL Hydralazine HCl (APRESOLINE) 50 MG Q8H PRN PRN PO Clopidogrel Bisulfate (Plavix) 75 MG DAILY PO Polyethylene Glycol (MIRALAX) 17 GM DAILY PO Pantoprazole (PROTONIX) 40 MG DAILY@0600 PO Atorvastatin Calcium (LIPITOR) 40 MG 2100 PO Docusate Sodium (COLACE) 100 MG BID PO Sennosides (Senna Lax 8.6 MG TABLET) 17.2 MG BEDTIME PO Aspirin (ASPIRIN) 81 MG DAILY PO Acetaminophen (TYLENOL) 650 MG Q4H PRN PRN PO Acetaminophen (TYLENOL) 650 MG Q4H PRN PRN RECTAL Dextrose/Water (DEXTROSE 10% IN WATER) 125 ML ASDIR PRN IV (CKD) Dextrose/Water (DEXTROSE 10% IN WATER) 250 ML ASDIR PRN IV (CKD) Glucagon (GLUCAGON) 1 MG ASDIR PRN IM Magnesium Sulfate (MAGNESIUM SULFATE 4GM/SWFI 100ML) 100 ML ASDIR PRN IV Magnesium Sulfate (MAGNESIUM SULFATE 2GM/SWFI 50ML) 50 ML ASDIR PRN IV Magnesium Sulfate/Dextrose (MAGNESIUM SULFATE 1GM/D5W 100ML) 100 ML ASDIR PRN IV Ondansetron HCl (ZOFRAN) 4 MG Q6H PRN PRN IV Sodium Chloride (SODIUM CHLORIDE 0.9%) 250 ML Q24H IV (DC) Physical Exam General appearance: alert, awake, oriented, no acute distress, pleasant, conversational, no respiratory distress Cardiovascular: regular rate and rhythm Respiratory: no distress Extremities: no edema 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: alert, oriented X 3, normal speech Skin: dry, normal color Psychiatry: normal affect, normal judgment/insight, normal mood Results Findings/data: Laboratory Tests 10/29 414 Chemistry Sodium (134 - 147 mEq/L) 141 Potassium (3.4 - 5.0 mEq/L) 4.1 Chloride (100 - 108 mEq/L) 106 Carbon Dioxide (21 - 33 mEq/l) 28 Anion Gap (0 - 20) 11 BUN (7 - 25 mg/dL) 17 Creatinine (0.6 - 1.3 mg/dL) 1.0 Glomerular Filtr Rate (80 - 90) 85.1 Glucose (77 - 141 mg/dL) 103 Calcium (8.0 - 10.5 mg/dL) 8.5 Magnesium (1.6 - 2.6 mg/dL) 1.96 Laboratory Tests 10/29 414 Hematology WBC (4.5 - 11.0 x10 3/uL) 11.7 H RBC (4.00 - 5.60 x10 6/uL) 2.64 L Hgb (12.5 - 16.9 g/dL) 7.5 L Hct (37.5 - 50.7 %) 24.1 L MCV (81.0 - 99.0 fL) 91.3 MCH (27.0 - 33.0 pg) 28.4 MCHC (33.0 - 37.0 g/dL) 31.1 L RDW (11.5 - 14.5 %) 15.2 H Plt Count (150 - 400 x10 3/uL) 542 H MPV (7.0 - 9.0 fL) 8.6 Neut % (Auto) (56.0 - 77.0 %) 67.3 Lymph % (Auto) (14.0 - 32.0 %) 18.9 [place] % (Auto) (4.8 - 9.0 %) 8.4 Eos % (Auto) (0.3 - 3.7 %) 3.6 Baso % (Auto) (0.0 - 2.0 %) 0.6 Neut # (Auto) (2.0 - 7.6 x10 3/uL) 7.88 H Lymph # (Auto) (1.0 - 3.8 x10 3/uL) 2.22 [place] # (Auto) (0.1 - 0.8 x10 3/uL) 0.99 H Eos # (Auto) (0.0 - 0.2 x10 3/uL) 0.42 H Baso # (Auto) (0.0 - 0.2 x10 3/uL) 0.07 Abs Immat Gran (auto) (0.00 - 0.03 x10 3/uL) 0.14 H Immature Gran % (0.0 - 2.0 %) 1.2 Nucleated RBC % (0 - 0 %) 0.2 H Nucleated RBCs # (Man) (0.0 - 0.1 x10 3/uL) 0.02 Laboratory Tests Test Result Date Time Chemistry B-Natriuretic Peptide (0 - 100 PG/ML) 109.0 H 10/14 2108 Results: labs reviewed, rhythm personally rev'd, current med profile rev'd Telemetry interpretation: SB rate 57 Diagnosis, Assessment Plan Consultants: cardiology Free Text DxA P Notes Free text DxA P notes: This is a 63 y.o male with medical history of HTN, CHF, CAD with 7 stents, who was transfered to [facility] on 10/14/24 from [facility] with NSTEMI. LHC was performed on 10/16/24- two vessel CAD, CABG was recommended. 10/21/24 the patient underwent CABG x4 (NIEVES-LAD, SVG-DIAG, SVG-OM1, SVG-Om2) Bilateral EVH, ALAA, PP. ECHO on 10/15/24- Pre-op LVEF 35-39% ECHO on 10/25/24- Post-op * Left ventricle: Systolic function is mildly reduced. * The IVC is normal-sized [id number]% Lasix 20mg po x1 increase spironolactone 25mg po daily Maintain MAP 70-90 Strict I O and daily standing weight Maintain K 4 and Mg 2 Trend CBC, BMP, Mg BP 137/63 SB rate 58 I O -970cc x24hrs GDMT: * Metoprolol Tartrate 25mg po Bid * Spironolactone 25mg po daily * Farxiga 10mg po daily CAD/s/p CABG x4 (NIEVES-LAD, SVG-DIAG, SVG-OM1, SVG-Om2) con't Meds: Amiodarone, Plavix, ASA, Atorvastatin, Metoprolol Tartrate 25mg po bid con't PT/OT Hyperlipidemia: Continue statin Hypertension: Continue Metoprolol tartrate 25mg po bid Reid Neal 11/09/24 1541: Attestations Physician Attestation Agree w/findings plan: I agree with the history, physical, and the assessment and plan as outlined by Doni Mcarthur NP. I have personally seen and examined the patient independently, and reviewed the patient's history, exam, and all cardiac and laboratory data. I was present and supervised. Critical care time spent 35 minutes. at 1438 at 1543 RPT #:[id number] END OF REPORT [facility] 2024-10-29 12:36:00 [facility] ([facility]) Hospitalist Progress Note REPORT#:[id number] REPORT STATUS: Signed REPORT INITIALIZATION DATE:10/29/24 TIME: 1235 PATIENT: CLEO LONG UNIT #: [id number] ROOM/BED: [id number] : 62 AGE: 63 SEX: M ATTEND: Shyla Zepeda MD ADM AUTHOR: Sue John MD REPT SERVICE DT/TIME: 10/29/24 1236 * ALL edits or amendments must be made on the electronic/computer document * Subjective Chief complaint: he feel well . no complaint HPI: 63 years old male with PMH of HTN, CHF and CAD with 7 stents complaint of cp . pain did not radiate . he also found elevate troponin . he was transferred to the hospital from [facility] due to NSTEMI . no fever no cough no sob no edema no nausea no vomiting no rosalind pain no dysuria no dizziness no syncope no neurology deficit . Review of Systems All systems rev neg: except as noted Objective General VS/I O: Vital Signs: Date Time Temp Pulse Resp B/P B/P Pulse O2 O2 Flow FiO2 Mean Ox Delivery Rate 10/29 1223 36.8 58 24 137/63 0.0 98 Room air 10/29 0720 36.8 64 20 135/68 0.0 95 Room air 10/29 0716 63 43 135/68 92 96 10/29 0410 36.7 62 17 146/64 0.0 98 Room air 10/28 2313 37.3 67 18 153/69 0.0 97 Room air 10/28 1924 98 Room air 10/28 1834 37.1 74 19 148/66 0.0 96 Room air 10/28 1811 73 24 98 10/28 1800 72 35 98 10/28 1634 36.4 96 20 157/72 0.0 96 Room air 10/28 1632 62 27 157/72 104 97 10/28 1326 60 41 97 10/28 1300 59 25 98 10/28 1238 36.7 60 24 133/66 0.0 99 Room air 24 hour I O ending at 0700: 10/29 0700 10/28 1900 Intake Total 150 580 Output Total 600 1100 Balance -450 -520 Intake, Oral 150 580 Output, Urine 600 1100 Patient 69.8 kg Weight Weight Standing scale Measurement Method PATIENT WEIGHT: Weight (lb): 153 Weight (oz): 14.12 Weight (kg): 69.800 Medications: Active Meds + DC'd Last 24 Hrs Dapagliflozin (FARXIGA) 10 MG DAILY PO Amiodarone HCl (CORDARONE) 200 MG BID PO Spironolactone (ALDACTONE) 12.5 MG DAILY PO Metoprolol Tartrate (LOPRESSOR) 25 MG Q12HR PO Melatonin (Melatonin) 6 MG BEDTIME PRN PRN PO Ipratropium [place] (ATROVENT) 500 MCG RTQ2H PRN PRN INH Cyanocobalamin (Vitamin B-12 500 mcg tab) 500 MCG DAILY PO Ferrous Sulfate (FERROUS SULFATE) 325 MG DAILY PO Bisacodyl (DULCOLAX) 10 MG ONCE PRN RECTAL Hydralazine HCl (APRESOLINE) 50 MG Q8H PRN PRN PO Clopidogrel Bisulfate (Plavix) 75 MG DAILY PO Polyethylene Glycol (MIRALAX) 17 GM DAILY PO Pantoprazole (PROTONIX) 40 MG DAILY@0600 PO Atorvastatin Calcium (LIPITOR) 40 MG 2100 PO Docusate Sodium (COLACE) 100 MG BID PO Sennosides (Senna Lax 8.6 MG TABLET) 17.2 MG BEDTIME PO Aspirin (ASPIRIN) 81 MG DAILY PO Acetaminophen (TYLENOL) 650 MG Q4H PRN PRN PO Acetaminophen (TYLENOL) 650 MG Q4H PRN PRN RECTAL Dextrose/Water (DEXTROSE 10% IN WATER) 125 ML ASDIR PRN IV (CKD) Dextrose/Water (DEXTROSE 10% IN WATER) 250 ML ASDIR PRN IV (CKD) Glucagon (GLUCAGON) 1 MG ASDIR PRN IM Magnesium Sulfate (MAGNESIUM SULFATE 4GM/SWFI 100ML) 100 ML ASDIR PRN IV Magnesium Sulfate (MAGNESIUM SULFATE 2GM/SWFI 50ML) 50 ML ASDIR PRN IV Magnesium Sulfate/Dextrose (MAGNESIUM SULFATE 1GM/D5W 100ML) 100 ML ASDIR PRN IV Ondansetron HCl (ZOFRAN) 4 MG Q6H PRN PRN IV Sodium Chloride (SODIUM CHLORIDE 0.9%) 250 ML Q24H IV (DC) Physical Exam General appearance: alert, awake, oriented Head/Eyes: atraumatic, normal conjunctiva/sclera, normal eyelids/periorb. Neck: full range of motion, non-tender, normal thyroid Cardiovascular: normal heart sounds, regular rate rhythm Respiratory: aerating well, clear to auscultation Abdomen: non-tender, normal bowel sounds, soft, no distention Extremities: moves all, no calf tenderness, no edema 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: alert, oriented X 3, CNII-XII intact, normal speech, no motor deficits, no sensory deficits Skin: dry, intact Psychiatry: normal affect, normal judgment/insight Results Findings/Data: Laboratory Tests 10/29 414 Chemistry Sodium (134 - 147 mEq/L) 141 Potassium (3.4 - 5.0 mEq/L) 4.1 Chloride (100 - 108 mEq/L) 106 Carbon Dioxide (21 - 33 mEq/l) 28 Anion Gap (0 - 20) 11 BUN (7 - 25 mg/dL) 17 Creatinine (0.6 - 1.3 mg/dL) 1.0 Glomerular Filtr Rate (80 - 90) 85.1 Glucose (77 - 141 mg/dL) 103 Calcium (8.0 - 10.5 mg/dL) 8.5 Magnesium (1.6 - 2.6 mg/dL) 1.96 Laboratory Tests 10/29 414 Hematology WBC (4.5 - 11.0 x10 3/uL) 11.7 H RBC (4.00 - 5.60 x10 6/uL) 2.64 L Hgb (12.5 - 16.9 g/dL) 7.5 L Hct (37.5 - 50.7 %) 24.1 L MCV (81.0 - 99.0 fL) 91.3 MCH (27.0 - 33.0 pg) 28.4 MCHC (33.0 - 37.0 g/dL) 31.1 L RDW (11.5 - 14.5 %) 15.2 H Plt Count (150 - 400 x10 3/uL) 542 H MPV (7.0 - 9.0 fL) 8.6 Neut % (Auto) (56.0 - 77.0 %) 67.3 Lymph % (Auto) (14.0 - 32.0 %) 18.9 [place] % (Auto) (4.8 - 9.0 %) 8.4 Eos % (Auto) (0.3 - 3.7 %) 3.6 Baso % (Auto) (0.0 - 2.0 %) 0.6 Neut # (Auto) (2.0 - 7.6 x10 3/uL) 7.88 H Lymph # (Auto) (1.0 - 3.8 x10 3/uL) 2.22 [place] # (Auto) (0.1 - 0.8 x10 3/uL) 0.99 H Eos # (Auto) (0.0 - 0.2 x10 3/uL) 0.42 H Baso # (Auto) (0.0 - 0.2 x10 3/uL) 0.07 Abs Immat Gran (auto) (0.00 - 0.03 x10 3/uL) 0.14 H Immature Gran % (0.0 - 2.0 %) 1.2 Nucleated RBC % (0 - 0 %) 0.2 H Nucleated RBCs # (Man) (0.0 - 0.1 x10 3/uL) 0.02 Diagnosis, Assessment Plan Consultants: cardiology Free Text DxA P Notes Free text DxA P notes: 63 YO male with CAD with stent Substance use HTN heart disease with HF Chronic systolic HF EF 35-39% Right carotid stenosis 50-69% anemia -- due to acute blood loss 10/15 tele cardiology consult continue ASA/plavix /lipitor CHF -- continue lasix and aldactone -- cozaar HTN- continue coreg 10/16- no cp no sob -- cath today -- post cath -- CABG evaluation 10/17 CABG next week, medically stable to proceed 10/18 CABG next week, Chest CT scan showed ? Pericardal effusion. stable to proceed 10/19 Vitals and labs stable today. No acute complaints. CABG later then week per surgeon. 10/20 labs and vitals remains stable. CABG later this week when surgery schedules. 10/22 S/P CABG 10/21. Continue postop care per CT surgery in ICU. Monitor chest tube OP. Monitor hgb, transfuse if hgb <7. S/P 1 unit PRBC. PT/OT for OOB. DC planning, possible SNF vs IPR. 10/23 Continue post-op care. PT/OT. Chest tubes out. Labs noted, CMP ok. Monitor Hgb and WBC. Rehab eval. 10/24- he sit on the chair no sob no dizziness -- he is hemodynamic stable -- HB-- 6.3- 6.1-- monitor H H --blood transfuse as CV surgeon and critical care --continue monitor in CV icu -- lab review 10/25 -- he had bowel movement . he is doing well . ambulate with PT -- he is hemodynamic stable -- H h -- 6.4- stable -- as cv surgeon -- continue PT/OT -- CM-- rehab or SNF placement 10/27 Continue post-op care per surgeon. Monitor H+H, no order for transfusion at this time, same range for few days, asymptomatic. PT/OT. To floor when cardio surg ok. 10/28- no complaint -- he is hemodynamic stable -- transfer out of icu --pending floor bed -- lab review -- Hb --6.9 10/29 he feel well Hb --7.5 continue monitor in the hospital and PT/OT at 1238 RPT #:[id number] END OF REPORT [facility] 2024-10-29 09:06:00 [facility]) Cardiothoracic Surgery Prog REPORT#:[id number] REPORT STATUS: Signed REPORT INITIALIZATION DATE:10/29/24 TIME: 905 PATIENT: CLEO LONG UNIT #: [id number] ROOM/BED: [place] [id number] : 61 AGE: 63 SEX: M ATTEND: Shyla Zepeda MD ADM AUTHOR: Margaret Serrano REPT SERVICE DT/TIME: 10/29/24 0906 * ALL edits or amendments must be made on the electronic/computer document * General Post-op: day 8 Status post: 10/21/2024 1. Coronary artery bypass graft surgery x4 (NIEVES to LAD, saphenous vein to diagonal, saphenous vein to first marginal, saphenous vein to second marginal). 2. Amputation of left atrial appendage. 3. Endoscopic vein harvest independent bilateral greater saphenous vein. 4. Posterior pericardiotomy. Subjective Chief complaint: s/p CABG Review of Systems Constitutional: Reports: fatigue. Denies: chills, fever, generalized weakness. Skin: Denies: abrasion, contusion, ecchymosis. Allergy/Immun: Denies: allergic reaction, hives, rhinorrhea. Eyes: Denies: redness, itching, diplopia. Respiratory: Denies: BAIG (dyspnea on exertion), hemoptysis, non productive cough, pleuritic pain. Cardiovascular: Denies: chest pain, palpitations. GI: Denies: abdominal pain, nausea, vomiting. Heme: Denies: adenopathy, bleeding, bruising. Endocrine: Denies: cold intolerance, heat intolerance, polyphagia. Neuro: Denies: confusion, dizziness, seizure, syncope. All systems rev neg: except as marked Objective General VS/I O Last Documented: Result Date Time Pulse Ox 95 10/29 720 B/P 135/68 10/29 720 B/P Mean 0.0 10/29 720 O2 Delivery Room air 10/29 720 Temp 98.2 10/29 720 Pulse 64 10/29 720 Resp 20 10/29 720 FiO2 21 10/28 0759 O2 Flow Rate 3 10/23 1121 24 hour I O ending at 0700: 10/29 0700 10/28 1900 Intake Total 150 580 Output Total 600 1100 Balance -450 -520 Intake, Oral 150 580 Output, Urine 600 1100 Patient 69.8 kg Weight Weight Standing scale Measurement Method PATIENT WEIGHT: Weight (lb): 153 Weight (oz): 14.12 Weight (kg): 69.800 Dietitian Nutrition assessment The data set between the solid lines has been imported from the dietitian's assessment. BMI Calculated: 23.2 Nutrition related diagnosis: Nutrition diagnosis details: Nutrition problem: No nutrition diagnosis Nutrition etiology: Nutrition signs and symptoms: Nutrition prescription: 1. continue current cardiac diet Dietitian name: Rubi Cai RD, AROLDO Assessment completed: 10/22/24 Physical Exam General appearance: alert, awake, oriented Wound/incision: Location: sternum Site condition: edges approximated, incision intact HEENT: anicteric, mucosal membranes moist, pupils reactive to light Neck: full range of motion, non-tender Cardiovascular: normal heart sounds, regular rate rhythm Respiratory: symmetric expansion, no distress Abdomen: soft, non-tender Genitourinary: no bladder distention, no flank pain Extremities: dry, moves all Musculoskeletal: full range of motion, painless range of motion 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: alert, oriented X 3 Skin: dry, intact Psychiatry: normal affect, normal mood Current Medications Medications: Active Meds + DC'd Last 24 Hrs Dapagliflozin (FARXIGA) 10 MG DAILY PO Furosemide (LASIX) 20 MG ONCE ONE PO (DC) Amiodarone HCl (CORDARONE) 200 MG BID PO Spironolactone (ALDACTONE) 12.5 MG DAILY PO Metoprolol Tartrate (LOPRESSOR) 25 MG Q12HR PO Melatonin (Melatonin) 6 MG BEDTIME PRN PRN PO Ipratropium [place] (ATROVENT) 500 MCG RTQ2H PRN PRN INH Cyanocobalamin (Vitamin B-12 500 mcg tab) 500 MCG DAILY PO Ferrous Sulfate (FERROUS SULFATE) 325 MG DAILY PO Bisacodyl (DULCOLAX) 10 MG ONCE PRN RECTAL Hydralazine HCl (APRESOLINE) 50 MG Q8H PRN PRN PO Clopidogrel Bisulfate (Plavix) 75 MG DAILY PO Polyethylene Glycol (MIRALAX) 17 GM DAILY PO Pantoprazole (PROTONIX) 40 MG DAILY@0600 PO Atorvastatin Calcium (LIPITOR) 40 MG 2100 PO Docusate Sodium (COLACE) 100 MG BID PO Sennosides (Senna Lax 8.6 MG TABLET) 17.2 MG BEDTIME PO Aspirin (ASPIRIN) 81 MG DAILY PO Acetaminophen (TYLENOL) 650 MG Q4H PRN PRN PO Acetaminophen (TYLENOL) 650 MG Q4H PRN PRN RECTAL Dextrose/Water (DEXTROSE 10% IN WATER) 125 ML ASDIR PRN IV (CKD) Dextrose/Water (DEXTROSE 10% IN WATER) 250 ML ASDIR PRN IV (CKD) Glucagon (GLUCAGON) 1 MG ASDIR PRN IM Magnesium Sulfate (MAGNESIUM SULFATE 4GM/SWFI 100ML) 100 ML ASDIR PRN IV Magnesium Sulfate (MAGNESIUM SULFATE 2GM/SWFI 50ML) 50 ML ASDIR PRN IV Magnesium Sulfate/Dextrose (MAGNESIUM SULFATE 1GM/D5W 100ML) 100 ML ASDIR PRN IV Ondansetron HCl (ZOFRAN) 4 MG Q6H PRN PRN IV Sodium Chloride (SODIUM CHLORIDE 0.9%) 250 ML Q24H IV Results Findings/Data: Laboratory Tests 10/29 414 Chemistry Sodium (134 - 147 mEq/L) 141 Potassium (3.4 - 5.0 mEq/L) 4.1 Chloride (100 - 108 mEq/L) 106 Carbon Dioxide (21 - 33 mEq/l) 28 Anion Gap (0 - 20) 11 BUN (7 - 25 mg/dL) 17 Creatinine (0.6 - 1.3 mg/dL) 1.0 Glomerular Filtr Rate (80 - 90) 85.1 Glucose (77 - 141 mg/dL) 103 Calcium (8.0 - 10.5 mg/dL) 8.5 Magnesium (1.6 - 2.6 mg/dL) 1.96 Laboratory Tests 10/29 414 Hematology WBC (4.5 - 11.0 x10 3/uL) 11.7 H RBC (4.00 - 5.60 x10 6/uL) 2.64 L Hgb (12.5 - 16.9 g/dL) 7.5 L Hct (37.5 - 50.7 %) 24.1 L MCV (81.0 - 99.0 fL) 91.3 MCH (27.0 - 33.0 pg) 28.4 MCHC (33.0 - 37.0 g/dL) 31.1 L RDW (11.5 - 14.5 %) 15.2 H Plt Count (150 - 400 x10 3/uL) 542 H MPV (7.0 - 9.0 fL) 8.6 Neut % (Auto) (56.0 - 77.0 %) 67.3 Lymph % (Auto) (14.0 - 32.0 %) 18.9 [place] % (Auto) (4.8 - 9.0 %) 8.4 Eos % (Auto) (0.3 - 3.7 %) 3.6 Baso % (Auto) (0.0 - 2.0 %) 0.6 Neut # (Auto) (2.0 - 7.6 x10 3/uL) 7.88 H Lymph # (Auto) (1.0 - 3.8 x10 3/uL) 2.22 [place] # (Auto) (0.1 - 0.8 x10 3/uL) 0.99 H Eos # (Auto) (0.0 - 0.2 x10 3/uL) 0.42 H Baso # (Auto) (0.0 - 0.2 x10 3/uL) 0.07 Abs Immat Gran (auto) (0.00 - 0.03 x10 3/uL) 0.14 H Immature Gran % (0.0 - 2.0 %) 1.2 Nucleated RBC % (0 - 0 %) 0.2 H Nucleated RBCs # (Man) (0.0 - 0.1 x10 3/uL) 0.02 Results: labs reviewed, vital signs stable, ladonna personally rev'd, current med profile rev'd Quality: Trauma Gen Surg Current Medications Current medication review: Current Medications Sig/Nia Start time Last Medication Dose Route Stop Time Status Admin Aspirin 81 MG BEDTIME 10/15 2100 AC PO 01/13 2059 Acetaminophen 650 MG Q6H PRN PRN 10/15 1030 AC PO 01/13 1029 Clopidogrel Bisulfate 75 MG DAILY 10/15 1030 AC PO 01/13 1029 Morphine Sulfate 2 MG Q4H PRN PRN 10/15 1030 AC IV 10/20 1029 Ondansetron HCl 4 MG Q4H PRN PRN 10/15 1030 AC IV 01/13 1029 Albuterol/Ipratropium 3 ML X1ED STA 10/14 2127 DC 10/14 NEB 10/14 2128 214 Aspirin 324 MG X1ED STA 10/14 2105 DC PO 10/14 2106 Home Medications: FUROSEMIDE (LASIX) 20 MG PO DAILY LOSARTAN 100 MG PO DAILY SPIRONOLACTONE (ALDACTONE) 25 MG PO DAILY ASPIRIN 81 MG PO DAILY CARVEDILOL (carvediloL) 12.5 MG PO BID CLOPIDOGREL (PLAVIX) 75 MG PO DAILY ATORVASTATIN (LIPITOR) 80 MG PO BEDTIME I attest that the foregoing medication list in the medical record is true, accurate, and complete to the best of my knowledge. Diagnosis, Assessment Plan Hospital course to date: This is a 63-year-old male with a past medical history of HTN, HLD, CHF and CAD with s/p 7 stents who presented with complaints of chest pain. The pain did not radiate. Labs include troponin of 71, and all other labs unremarkable. Patient was transferred to [facility] from [facility] due to NSTEMI. He denies recent fever, cough, shortness of breath, or edema. 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 Left circumflex large dominant vessel first obtuse marginal is patent has stents that looks fine another stent in the mid circumflex beyond the obtuse marginal that has 80 to 90% focal severe restenosis otherwise circumflex distally has diffuse disease distal disease. RCA small nondominant vessel. CV surgery consulted for evaluation of multi-vessel coronary artery disease. Dr. Ko has seen and examined the patient. Thank you for this kind consultation. Assessment/Plan: 1. Multi-vessel coronary artery disease s/p stents 2. Hypertension 3. Hyperlipidemia Patient not able to answer questions due to sedation effects following [facility] CABG workup initiated CT chest w/o contrast Vein mapping and marking Carotid US Urinalysis MRSA/MSSA Hemoglobin A1C Patient seen and examined by Dr. Ko. All questions answered. 10/17/24 Patient alert, awake, oriented, denies any chest pain Breathing comfortable on room air, encourage incentive spirometer teaching Labs and imaging reviewed Last dose of Plavix on 10/16, check platelet response to Plavix Urinalysis negative Hemoglobin A1c 5.[address] chest and MRSA/MSSA Carotid duplex shows 50 to 69% right internal carotid artery stenosis Vein mapping reviewed, veins not visualized on left knee and calf area Echocardiogram shows EF 35 to 39%, moderate to severe diffuse hypokinesis, grade 1 diastolic dysfunction, aortic valve thickening consistent with sclerosis, mild MR, small to moderate pericardial effusion Transfer to CVN 1 Further recommendations to follow Patient seen and examined by Dr. Ko, discussed plan of care with patient, questions were answered 10/18/24 Patient alert, awake, oriented, denies any chest pain Breathing comfortable on room air, encourage incentive spirometer teaching Labs and imaging reviewed, patient had positive drug screen amphetamines and cannabis, educated patient on drug cessation Last dose of Plavix on 10/16, check platelet response to Plavix-87 Urinalysis negative Hemoglobin A1c 5.[address] chest and MRSA/MSSA- Carotid duplex shows 50 to 69% right internal carotid artery stenosis Vein mapping reviewed, veins not visualized on left knee and calf area Echocardiogram shows EF 35 to 39%, moderate to severe diffuse hypokinesis, grade 1 diastolic dysfunction, aortic valve thickening consistent with sclerosis, mild MR, small to moderate pericardial effusion Plan for surgery in upcoming week once platelet response to Plavix improved Patient seen and examined by Dr. Ko, discussed plan of care with patient, questions were answered. 10/19/24 Patient alert, awake, oriented, denies any chest pain Breathing comfortable on room air, encourage incentive spirometer teaching Labs and imaging reviewed, patient had positive drug screen amphetamines and cannabis, educated patient on drug cessation Last dose of Plavix on 10/16, check platelet response to Plavix-87 - Repeat Platelet response and TEG tomorrow morning Urinalysis negative Hemoglobin A1c 5.3 CT chest completed, showing Cardiomegaly with a 2 cm thick pericardial effusion MRSA/MSSA negative Carotid duplex shows 50 to 69% right internal carotid artery stenosis Vein mapping reviewed, veins not visualized on left knee and calf area Echocardiogram shows EF 35 to 39%, moderate to severe diffuse hypokinesis, grade 1 diastolic dysfunction, aortic valve thickening consistent with sclerosis, mild MR, small to moderate pericardial effusion Plan for surgery later in the week once platelet response to Plavix has improved Patient seen and examined by Dr. Ko, discussed plan of care with patient, questions were answered. 10/20/24 Patient alert, awake, oriented, denies any chest pain Breathing comfortable on room air, encourage incentive spirometer teaching Labs and imaging reviewed, patient had positive drug screen amphetamines and cannabis, educated patient on drug cessation Last dose of Plavix on 10/16, check platelet response to Plavix-87 -Platelet response today is 109, TEG completed ADP % inhibition 20.6, ADP 59.4 Urinalysis negative Hemoglobin A1c 5.3 CT chest completed, showing Cardiomegaly with a 2 cm thick pericardial effusion MRSA/MSSA negative Carotid duplex shows 50 to 69% right internal carotid artery stenosis Vein mapping reviewed, veins not visualized on left knee and calf area Echocardiogram shows EF 35 to 39%, moderate to severe diffuse hypokinesis, grade 1 diastolic dysfunction, aortic valve thickening consistent with sclerosis, mild MR, small to moderate pericardial effusion PFTs to be completed tomorrow Surgery will be scheduled later this week. Patient seen and examined by Dr. Ko, discussed plan of care with patient, questions were answered. 10/21/24 Events occurred yesterday and overnight, where patient had went missing for a couple hours during the evening and then the family was found vaping in the patient's room. Dr. Ko discussed with the patient the expectations and rules that must be followed while in the hospital. The patient understands, and agreed that he would abstain from any drug use or smoking. A drug toxicology screen was completed, positive for Cannabinoids. Patient will benefit from surgical revascularization, Dr. Ko explained to the patient and family the need for coronary artery bypass graft surgery. He explained in detail the operation, risks involved, STS risk score calculator, benefits, alternatives, and complications. Patient acknowledges understanding and is agreeable to proceed, all questions were answered and consent is obtained. Patient is scheduled for coronary artery bypass graft surgery this afternoon. 1. Coronary artery bypass graft surgery x4 (NIEVES to LAD, saphenous vein to diagonal, saphenous vein to first marginal, saphenous vein to second marginal). 2. Amputation of left atrial appendage. 3. Endoscopic vein harvest independent bilateral greater saphenous vein. 4. Posterior pericardiotomy. 10/22/24 POD 1 Patient alert, awake, oriented, reports pain uncontrolled Labs reviewed, hemoglobin 7.6, given 1 unit of PRBC yesterday, replace electrolytes as needed, creatinine 1.1 H H at noon Breathing comfortably on RA, encourage incentive spirometer use and deep breathing, nebs, chest x-ray reviewed Chest tube outputs LP 260cc, MS 270cc overnight, keep in place and continue monitoring, will reassess after ambulation Normal sinus rhythm, epicardial pacing wires on standby, monitoring blood pressure, CVP 7 Advance diet as tolerated, nutritional supplements, bowel regimen, monitoring BS Dinesh, Urine output overnight 1020cc, strict I's O's, daily standing scale weights, +2428 24 hr- fluid balance PT/OT, OOB for all meals, encourage ambulation DVT prophylaxis with SCDs, GI prophylaxis with PPI Disposition: patient and family admitted yesterday they are not at one specific place living. Consult case management for possible SNF vs. rehab Continue supportive care ICC following Patient seen and examined by Dr. Ko. Discussed plan of care with patient, nurse and interdisciplinary team. All questions answered. 10/23/24 POD 2 Patient alert, awake, oriented, reports pain uncontrolled, on nitro gtt Labs reviewed, hgb 7.2, replace electrolytes as needed On 8L HFNC, wean as tolerated, encourage incentive spirometer use and deep breathing, nebs, chest x-ray reviewed Normal sinus rhythm, epicardial pacing wires on standby, monitoring blood pressure, increase BB to metoprolol 50mg BID, add amlodipine 5mg daily, CVP 8 Advance diet as tolerated, nutritional supplements, bowel regimen, monitoring BS Montiel, Urine output overnight 525cc, strict I's O's, daily standing scale weights, +479 24 hr- fluid balance, weight trending up PT/OT, OOB for all meals, encourage ambulation DVT prophylaxis with SCDs, GI prophylaxis with PPI Disposition: patient and family admitted they are not at one specific place living. Case management following, SNF vs. rehab Continue supportive care ICC followingJEFF Patient seen and examined by Dr. Ko. Discussed plan of care with patient, nurse and interdisciplinary team. All questions answered. 10/24/24 POD 3 Patient alert, awake, oriented, reports pain improving. Labs reviewed, HGB 6.1- Moniotr Closely, repeat H7H this afternoon. replace electrolytes as needed On 4L, wean as tolerated, encourage incentive spirometer use and deep breathing, nebs, chest x-ray reviewed Normal sinus rhythm, epicardial pacing wires on standby, monitoring blood pressure, metoprolol 50mg BID, add amlodipine 5mg daily, Advance diet as tolerated, nutritonal supplements, bowel regimen, monitoring BS PT/OT, OOB for all meals, encourage ambulation DVT prophylaxis with SCDs, GI prophylaxis with PPI Disposition: patient and family admitted they are not at one specific place living. Case management following, SNF vs. rehab Continue supportive care ICC following, Patient seen and examined by Dr. Ko. Discussed plan of care with patient, nurse and interdisciplinary team. All questions answered. No signs of hemodynamic instability. repeat H H this afternoon. Continue OOB walking. 10/25/24 POD 4 Patient alert, awake, oriented, reports pain improving. Labs reviewed, HGB 6.4, slightly improved. No tachycardia no signs of hemodynamic instability replace electrolytes as needed On room air Normal sinus rhythm, epicardial pacing wires on standby, monitoring blood pressure, metoprolol 50mg BID, add amlodipine 5mg daily, Tolerating diet, reports bowel movements PT/OT, OOB for all meals, encourage ambulation DVT prophylaxis with SCDs, GI prophylaxis with PPI Disposition: patient and family admitted they are not at one specific place living. Rehab consulted Case management following, will need SNF vs. rehab Continue supportive care Will obtain DVT studies Patient seen and examined by Dr. Ko. Discussed plan of care with patient, nurse and interdisciplinary team. All questions answered. No signs of hemodynamic instability. repeat H H this afternoon. Continue OOB walking. 10/26/24 POD 5 Patient alert, awake, oriented, reports pain improving. Labs reviewed, HGB 6.5, slightly improved-stable No tachycardia no signs of hemodynamic instability, replace electrolytes as needed Breathing comfortable on room air, encourage incentive spirometer use Normal sinus rhythm, epicardial pacing wires on standby-discontinue today, limited echocardiogram monitoring blood pressure, metoprolol 25mg BID, amlodipine 5mg daily, Tolerating cardiac diet, reports bowel movements Strict I's and O's and daily standing scale weight, weight trending down PT/OT, OOB for all meals, encourage ambulation DVT prophylaxis with SCDs, GI prophylaxis with PPI Bilateral extremity Dopplers negative for DVT Disposition: patient and family admitted they are not at one specific place living. Rehab consulted Case management following, will need SNF vs. rehab Continue supportive care Patient seen and examined by Dr. Ko. Discussed plan of care with patient, nurse and interdisciplinary team. All questions answered. 10/27/24 POD 6 Patient alert, awake, oriented, reports pain improving. Labs reviewed, HGB 6.3-stable No tachycardia no signs of hemodynamic instability, replace electrolytes as needed Breathing comfortable on room air, encourage incentive spirometer use Normal sinus rhythm, limited echocardiogram-shows small to moderate pericardial effusion, monitor closely, monitoring blood pressure, metoprolol 25mg BID, amlodipine 5mg daily, Tolerating cardiac diet, reports bowel movements Strict I's and O's and daily standing scale weight, weight trending down PT/OT, OOB for all meals, encourage ambulation DVT prophylaxis with SCDs, GI prophylaxis with PPI Bilateral extremity Dopplers negative for DVT Disposition: patient and family admitted they are not at one specific place living. Rehab consulted Case management following, will need SNF vs. rehab Transfer to [facility] 1 Continue supportive care Patient seen and examined by Dr. Ko. Discussed plan of care with patient, nurse and interdisciplinary team. All questions answered. 10/28/24 POD 7 Patient alert, awake, oriented, reports pain improving. Labs reviewed, HGB 6.9-stable No tachycardia no signs of hemodynamic instability, replace electrolytes as needed Breathing comfortable on room air, encourage incentive spirometer use Normal sinus rhythm, limited echocardiogram-shows small to moderate pericardial effusion, monitor closely, monitoring blood pressure, metoprolol 25mg BID, amlodipine 5mg daily, Tolerating cardiac diet, reports bowel movements Strict I's and O's and daily standing scale weight, weight trending down PT/OT, OOB for all meals, encourage ambulation DVT prophylaxis with SCDs, GI prophylaxis with PPI Bilateral extremity Dopplers negative for DVT Disposition: patient and family admitted they are not at one specific place living. Rehab consulted Case management following, will need SNF pending choice Transfer to [facility] 1 Continue supportive care Patient seen and examined by Dr. Ko. Discussed plan of care with patient, nurse and interdisciplinary team. All questions answered. 10/29/24 POD 8 Patient alert, awake, oriented, reports pain improving. Labs reviewed, HGB 7.5 -stable, No tachycardia no signs of hemodynamic instability, replace electrolytes as needed Breathing comfortable on room air, encourage incentive spirometer use Normal sinus rhythm, limited echocardiogram- shows small to moderate pericardial effusion, monitor closely, monitoring blood pressure, metoprolol 25mg BID, amlodipine 5mg daily, aldaxtone 12.5 daily, amiodarone 200mg BID Tolerating cardiac diet, reports bowel movements Strict I's and O's and daily standing scale weight, weight trending down PT/OT, OOB for all meals, encourage ambulation DVT prophylaxis with SCDs, GI prophylaxis with PPI Bilateral extremity Dopplers negative for DVT Disposition: patient and family admitted they are not at one specific place living. Rehab consulted Case management following, will need SNF pending choice, they will discuss with family this morning choice of SNF. Continue supportive care Patient seen and examined by Dr. Ko. Discussed plan of care with patient, nurse and interdisciplinary team. All questions answered. Consultants: cardiology Code status: full code Plan discussed with: patient, collaborating MD, nurse, interdisc care team at 0913 at 1841 RPT #:[id number] END OF REPORT [facility] 2024-10-29 06:56:00 [facility] ([facility]) Cardiology Progress Note REPORT#:[id number] REPORT STATUS: Signed REPORT INITIALIZATION DATE:10/29/24 TIME: 655 PATIENT: CLEO LONG UNIT #: [id number] ROOM/BED: [place] [id number] : 61 AGE: 63 SEX: M ATTEND: Shyla Zepeda MD ADM AUTHOR: Alec Norris MD REPT SERVICE DT/TIME: 10/29/24 0656 * ALL edits or amendments must be made on the electronic/computer document * Objective General VS/I O: 24 hour I O ending at 0700: 10/29 0700 10/28 1900 Intake Total 150 580 Output Total 600 1100 Balance -450 -520 Intake, Oral 150 580 Output, Urine 600 1100 Patient 69.8 kg Weight Weight Standing scale Measurement Method Vital Signs: Date Time Temp Pulse Resp B/P B/P Pulse O2 O2 Flow FiO2 Mean Ox Delivery Rate 10/29 0410 36.7 62 17 146/64 0.0 98 Room air 10/28 2313 37.3 67 18 153/69 0.0 97 Room air 10/28 1924 98 Room air 10/28 1834 37.1 74 19 148/66 0.0 96 Room air 10/28 1811 73 24 98 10/28 1800 72 35 98 10/28 1634 36.4 96 20 157/72 0.0 96 Room air 10/28 1632 62 27 157/72 104 97 10/28 1326 60 41 97 10/28 1300 59 25 98 10/28 1238 36.7 60 24 133/66 0.0 99 Room air 10/28 1233 60 27 133/66 91 99 10/28 1201 57 41 134/67 94 99 10/28 1146 55 24 128/85 98 98 10/28 1130 55 30 134/70 98 98 10/28 1118 36.8 54 24 142/63 0.0 97 Room air 10/28 1038 60 24 133/61 88 97 10/28 1020 66 25 137/71 99 98 10/28 0934 68 24 143/68 98 97 10/28 0901 66 29 113/88 93 98 10/28 0831 70 23 128/62 89 95 10/28 0820 70 26 151/70 100 95 10/28 0800 36.7 10/28 0759 96 Room air 21 10/28 0731 65 24 137/63 90 97 10/28 0700 66 24 147/72 103 96 PATIENT WEIGHT: Weight (lb): 153 Weight (oz): 14.12 Weight (kg): 69.800 Medications: Active Meds + DC'd Last 24 Hrs Dapagliflozin (FARXIGA) 10 MG DAILY PO Furosemide (LASIX) 20 MG ONCE ONE PO (DC) Amiodarone HCl (CORDARONE) 200 MG BID PO Spironolactone (ALDACTONE) 12.5 MG DAILY PO Metoprolol Tartrate (LOPRESSOR) 25 MG Q12HR PO Melatonin (Melatonin) 6 MG BEDTIME PRN PRN PO Ipratropium [place] (ATROVENT) 500 MCG RTQ2H PRN PRN INH Cyanocobalamin (Vitamin B-12 500 mcg tab) 500 MCG DAILY PO Ferrous Sulfate (FERROUS SULFATE) 325 MG DAILY PO Bisacodyl (DULCOLAX) 10 MG ONCE PRN RECTAL Hydralazine HCl (APRESOLINE) 50 MG Q8H PRN PRN PO Clopidogrel Bisulfate (Plavix) 75 MG DAILY PO Polyethylene Glycol (MIRALAX) 17 GM DAILY PO Pantoprazole (PROTONIX) 40 MG DAILY@0600 PO Atorvastatin Calcium (LIPITOR) 40 MG 2100 PO Docusate Sodium (COLACE) 100 MG BID PO Sennosides (Senna Lax 8.6 MG TABLET) 17.2 MG BEDTIME PO Aspirin (ASPIRIN) 81 MG DAILY PO Amiodarone HCl (CORDARONE) 200 MG TID PO (DC) Acetaminophen (TYLENOL) 650 MG Q4H PRN PRN PO Acetaminophen (TYLENOL) 650 MG Q4H PRN PRN RECTAL Dextrose/Water (DEXTROSE 10% IN WATER) 125 ML ASDIR PRN IV (CKD) Dextrose/Water (DEXTROSE 10% IN WATER) 250 ML ASDIR PRN IV (CKD) Glucagon (GLUCAGON) 1 MG ASDIR PRN IM Magnesium Sulfate (MAGNESIUM SULFATE 4GM/SWFI 100ML) 100 ML ASDIR PRN IV Magnesium Sulfate (MAGNESIUM SULFATE 2GM/SWFI 50ML) 50 ML ASDIR PRN IV Magnesium Sulfate/Dextrose (MAGNESIUM SULFATE 1GM/D5W 100ML) 100 ML ASDIR PRN IV Ondansetron HCl (ZOFRAN) 4 MG Q6H PRN PRN IV Sodium Chloride (SODIUM CHLORIDE 0.9%) 250 ML Q24H IV Physical Exam General appearance: alert, awake Cardiovascular: CV assessment: regular rate and rhythm, BP pulses = bilaterally, normal heart sounds, pedal pulses present, no ectopy, no heave, no murmur Respiratory: clear to auscultation Results Findings/Data: Laboratory Tests 10/29 414 Chemistry Sodium (134 - 147 mEq/L) 141 Potassium (3.4 - 5.0 mEq/L) 4.1 Chloride (100 - 108 mEq/L) 106 Carbon Dioxide (21 - 33 mEq/l) 28 Anion Gap (0 - 20) 11 BUN (7 - 25 mg/dL) 17 Creatinine (0.6 - 1.3 mg/dL) 1.0 Glomerular Filtr Rate (80 - 90) 85.1 Glucose (77 - 141 mg/dL) 103 Calcium (8.0 - 10.5 mg/dL) 8.5 Magnesium (1.6 - 2.6 mg/dL) 1.96 Laboratory Tests 10/29 414 Hematology WBC (4.5 - 11.0 x10 3/uL) 11.7 H RBC (4.00 - 5.60 x10 6/uL) 2.64 L Hgb (12.5 - 16.9 g/dL) 7.5 L Hct (37.5 - 50.7 %) 24.1 L MCV (81.0 - 99.0 fL) 91.3 MCH (27.0 - 33.0 pg) 28.4 MCHC (33.0 - 37.0 g/dL) 31.1 L RDW (11.5 - 14.5 %) 15.2 H Plt Count (150 - 400 x10 3/uL) 542 H MPV (7.0 - 9.0 fL) 8.6 Neut % (Auto) (56.0 - 77.0 %) 67.3 Lymph % (Auto) (14.0 - 32.0 %) 18.9 [place] % (Auto) (4.8 - 9.0 %) 8.4 Eos % (Auto) (0.3 - 3.7 %) 3.6 Baso % (Auto) (0.0 - 2.0 %) 0.6 Neut # (Auto) (2.0 - 7.6 x10 3/uL) 7.88 H Lymph # (Auto) (1.0 - 3.8 x10 3/uL) 2.22 [place] # (Auto) (0.1 - 0.8 x10 3/uL) 0.99 H Eos # (Auto) (0.0 - 0.2 x10 3/uL) 0.42 H Baso # (Auto) (0.0 - 0.2 x10 3/uL) 0.07 Abs Immat Gran (auto) (0.00 - 0.03 x10 3/uL) 0.14 H Immature Gran % (0.0 - 2.0 %) 1.2 Nucleated RBC % (0 - 0 %) 0.2 H Nucleated RBCs # (Man) (0.0 - 0.1 x10 3/uL) 0.02 Laboratory Tests 10/29 0414 Chemistry Magnesium (1.6 - 2.6 mg/dL) 1.96 Diagnosis, Assessment Plan Free Text DxA P Notes Free Text DxA P Notes: 1. CAD: Two-vessel, plan for CABG sometime next week. 2. Hyperlipidemia: Continue statin 3. Hypertension: Continue carvedilol s/p cabg today extubated chest tubes in place stable hemodynamics no symptoms clinically better 1. CAD: Two-vessel, plan for CABG sometime next week. 2. Hyperlipidemia: Continue statin 3. Hypertension: Continue carvedilol s/p cabg today extubated chest tubes in place stable hemodynamics no symptoms clinically better Patient alert, awake, oriented, reports pain improving. Labs reviewed, HGB 6.5, slightly improved-stable No tachycardia no signs of hemodynamic instability, replace electrolytes as needed Breathing comfortable on room air, encourage incentive spirometer use Normal sinus rhythm, epicardial pacing wires on standby-discontinue today, limited echocardiogram monitoring blood pressure, metoprolol 25mg BID, amlodipine 5mg daily, Tolerating cardiac diet, reports bowel movements Strict I's and O's and daily standing scale weight, weight trending down PT/OT, OOB for all meals, encourage ambulation DVT prophylaxis with SCDs, GI prophylaxis with PPI Bilateral extremity Dopplers negative for DVT Disposition: patient and family admitted they are not at one specific place living. Rehab consulted stable hemodynamics plan per cts at 1902 RPT #:[id number] END OF REPORT [facility] 2024-10-28 15:02:00 [facility] Progress Note REPORT#:[id number] REPORT STATUS: Signed REPORT INITIALIZATION DATE:10/28/24 TIME: 1502 PATIENT: CLEO LONG UNIT #: [id number] ROOM/BED: [place] [id number] : 61 AGE: 63 SEX: M ATTEND: Shyla Zepeda MD ADM AUTHOR: Shannon Bell NP REPT SERVICE DT/TIME: 10/28/24 1502 * ALL edits or amendments must be made on the electronic/computer document * Subjective Chief complaint: rehab follow-up Fatigue Generalized weakness Pain controlled /denied sob Objective General VS: Vital Signs: Date Time Temp Pulse Resp B/P B/P Pulse O2 O2 Flow FiO2 Mean Ox Delivery Rate 10/28 1238 98.1 60 24 133/66 0.0 99 Room air 10/28 1118 98.2 54 24 142/63 0.0 97 Room air 10/28 0800 98.1 10/28 0759 96 Room air 21 10/28 0455 68 22 10/28 0430 65 16 188/82 118 10/28 0400 67 29 141/72 100 97 10/28 0331 66 26 144/72 101 96 10/28 0300 64 20 155/70 100 97 10/28 0231 68 29 148/116 128 96 10/28 0200 65 34 10/28 0130 62 29 150/82 110 97 10/28 0101 66 24 147/111 123 96 10/28 0100 62 36 97 10/28 0030 62 29 163/75 108 97 10/28 0000 62 25 147/73 102 97 10/27 2330 63 29 157/76 109 97 10/27 2300 60 21 151/73 99 97 10/27 2231 59 19 154/67 96 97 10/27 2206 59 26 133/62 89 97 10/27 2200 60 27 96 10/27 2130 58 20 168/77 110 98 10/27 2101 64 14 162/72 104 98 10/27 2100 64 13 98 10/27 2030 69 21 136/63 91 96 10/27 2015 96 Room air 21 10/27 2005 72 21 133/63 91 96 10/27 2000 98.2 10/27 2000 72 22 96 10/27 1930 72 18 167/70 101 10/27 1901 77 22 153/65 94 10/27 1900 76 33 10/27 1731 71 32 122/70 89 97 10/27 1700 67 26 159/71 102 98 10/27 1600 65 29 161/85 117 98 PATIENT WEIGHT: Weight (lb): 161 Weight (oz): 6.05 Weight (kg): 73.200 Medications: Active Meds + DC'd Last 24 Hrs Dapagliflozin (FARXIGA) 10 MG DAILY PO Furosemide (LASIX) 20 MG ONCE ONE PO (DC) Amiodarone HCl (CORDARONE) 200 MG BID PO Spironolactone (ALDACTONE) 12.5 MG DAILY PO Metoprolol Tartrate (LOPRESSOR) 25 MG Q12HR PO Melatonin (Melatonin) 6 MG BEDTIME PRN PRN PO Ipratropium [place] (ATROVENT) 500 MCG RTQ2H PRN PRN INH Cyanocobalamin (Vitamin B-12 500 mcg tab) 500 MCG DAILY PO Ferrous Sulfate (FERROUS SULFATE) 325 MG DAILY PO Bisacodyl (DULCOLAX) 10 MG ONCE PRN RECTAL Hydralazine HCl (APRESOLINE) 50 MG Q8H PRN PRN PO Clopidogrel Bisulfate (Plavix) 75 MG DAILY PO Polyethylene Glycol (MIRALAX) 17 GM DAILY PO Pantoprazole (PROTONIX) 40 MG DAILY@0600 PO Atorvastatin Calcium (LIPITOR) 40 MG 2100 PO Docusate Sodium (COLACE) 100 MG BID PO Sennosides (Senna Lax 8.6 MG TABLET) 17.2 MG BEDTIME PO Aspirin (ASPIRIN) 81 MG DAILY PO Amiodarone HCl (CORDARONE) 200 MG TID PO (DC) Acetaminophen (TYLENOL) 650 MG Q4H PRN PRN PO Acetaminophen (TYLENOL) 650 MG Q4H PRN PRN RECTAL Dextrose/Water (DEXTROSE 10% IN WATER) 125 ML ASDIR PRN IV (CKD) Dextrose/Water (DEXTROSE 10% IN WATER) 250 ML ASDIR PRN IV (CKD) Glucagon (GLUCAGON) 1 MG ASDIR PRN IM Magnesium Sulfate (MAGNESIUM SULFATE 4GM/SWFI 100ML) 100 ML ASDIR PRN IV Magnesium Sulfate (MAGNESIUM SULFATE 2GM/SWFI 50ML) 50 ML ASDIR PRN IV Magnesium Sulfate/Dextrose (MAGNESIUM SULFATE 1GM/D5W 100ML) 100 ML ASDIR PRN IV Ondansetron HCl (ZOFRAN) 4 MG Q6H PRN PRN IV Sodium Chloride (SODIUM CHLORIDE 0.9%) 250 ML Q24H IV Physical Exam General appearance: alert, awake Psych: alert, oriented x 3 HEENT: anicteric, mucosal membranes moist Neck: supple, no JVD Cardiovascular: regular rate rhythm, no murmur Respiratory: diminished breath sounds, aerating well, clear bilaterally Abdomen: bowel sounds present, non-distended, soft, non-tender Skin: dry, intact, no rash, surgical incision D/I Musculoskeletal - general: Musculoskeletal - general: swelling (BLE) 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: alert, oriented X 3 Results Findings/Data: Laboratory Tests: 10/28 0132 Chemistry Sodium (134 - 147 mEq/L) 142 Potassium (3.4 - 5.0 mEq/L) 4.0 Chloride (100 - 108 mEq/L) 111 H Carbon Dioxide (21 - 33 mEq/l) 25 Anion Gap (0 - 20) 10 BUN (7 - 25 mg/dL) 17 Creatinine (0.6 - 1.3 mg/dL) 0.8 Glomerular Filtr Rate (80 - 90) 100.1 H Glucose (77 - 141 mg/dL) 102 Calcium (8.0 - 10.5 mg/dL) 8.4 Magnesium (1.6 - 2.6 mg/dL) 1.82 Hematology WBC (4.5 - 11.0 x10 3/uL) 13.0 H RBC (4.00 - 5.60 x10 6/uL) 2.38 L Hgb (12.5 - 16.9 g/dL) 6.9 L Hct (37.5 - 50.7 %) 21.9 L MCV (81.0 - 99.0 fL) 92.0 MCH (27.0 - 33.0 pg) 29.0 MCHC (33.0 - 37.0 g/dL) 31.5 L RDW (11.5 - 14.5 %) 14.8 H Plt Count (150 - 400 x10 3/uL) 465 H MPV (7.0 - 9.0 fL) 8.9 Neut % (Auto) (56.0 - 77.0 %) 66.1 Lymph % (Auto) (14.0 - 32.0 %) 18.3 [place] % (Auto) (4.8 - 9.0 %) 10.0 H Eos % (Auto) (0.3 - 3.7 %) 3.9 H Baso % (Auto) (0.0 - 2.0 %) 0.4 Neut # (Auto) (2.0 - 7.6 x10 3/uL) 8.56 H Lymph # (Auto) (1.0 - 3.8 x10 3/uL) 2.37 [place] # (Auto) (0.1 - 0.8 x10 3/uL) 1.29 H Eos # (Auto) (0.0 - 0.2 x10 3/uL) 0.51 H Baso # (Auto) (0.0 - 0.2 x10 3/uL) 0.05 Abs Immat Gran (auto) (0.00 - 0.03 x10 3/uL) 0.17 H Immature Gran % (0.0 - 2.0 %) 1.3 Nucleated RBC % (0 - 0 %) 0.3 H Nucleated RBCs # (Man) (0.0 - 0.1 x10 3/uL) 0.04 Diagnosis, Assessment Plan Free Text A P: Cardiac debility Multivessel CAD S/p CABG x 4 Generalized weakness Impaired ADLs, mobility, gait Postoperative anemia History of CHF HTN HLD Plan: Continue PT/OT Out of bed to chair Work on ADLs, strength, bed mobility, transfers, gait Sternal precaution Increase endurance Fall precautions Monitor PO intake and nutrition Strict decubitus precautions Cont. current medications Monitor labs Advance therapies as tolerated+ HGB 6.9 ClOF: Transfers: SPV to [facility] Pt now ambulating 500ft SPV WC handles Pt is to high level for IPR If there are still medical issues to be monitored consider SNF setting. Discussed with and pt about CLOF and being to high for IPR -Answered all questions Consultants: cardiology Rehab attestation: Face to face exam completed. at 1504 RPT #:[id number] END OF REPORT [facility] 2024-10-28 12:22:00 [facility] ([facility] Hospitalist Progress Note REPORT#:[id number] REPORT STATUS: Signed REPORT INITIALIZATION DATE:10/28/24 TIME: 122 PATIENT: CLEO LONG UNIT #: [id number] ROOM/BED: [place] [id number] : 61 AGE: 63 SEX: M ATTEND: Shyla Zepeda MD ADM AUTHOR: Sue John MD REPT SERVICE DT/TIME: 10/28/24 1222 * ALL edits or amendments must be made on the electronic/computer document * Subjective Chief complaint: he is doing well with PT. HPI: 63 years old male with PMH of HTN, CHF and CAD with 7 stents complaint of cp . pain did not radiate . he also found elevate troponin . he was transferred to the hospital from [facility] due to NSTEMI . no fever no cough no sob no edema no nausea no vomiting no rosalind pain no dysuria no dizziness no syncope no neurology deficit . Review of Systems All systems rev neg: except as noted Objective General VS/I O: Vital Signs: Date Time Temp Pulse Resp B/P B/P Pulse O2 O2 Flow FiO2 Mean Ox Delivery Rate 10/28 1118 36.8 54 24 142/63 0.0 97 Room air 10/28 0800 36.7 10/28 0759 96 Room air 21 10/28 0455 68 22 10/28 0430 65 16 188/82 118 10/28 0400 67 29 141/72 100 97 10/28 0331 66 26 144/72 101 96 10/28 0300 64 20 155/70 100 97 10/28 0231 68 29 148/116 128 96 10/28 0200 65 34 10/28 0130 62 29 150/82 110 97 10/28 0101 66 24 147/111 123 96 10/28 0100 62 36 97 10/28 0030 62 29 163/75 108 97 10/28 0000 62 25 147/73 102 97 10/27 2330 63 29 157/76 109 97 10/27 2300 60 21 151/73 99 97 10/27 2231 59 19 154/67 96 97 10/27 2206 59 26 133/62 89 97 10/27 2200 60 27 96 10/27 2130 58 20 168/77 110 98 10/27 2101 64 14 162/72 104 98 10/27 2100 64 13 98 10/27 2030 69 21 136/63 91 96 10/27 2015 96 Room air 21 10/27 2005 72 21 133/63 91 96 10/27 2000 36.8 10/27 2000 72 22 96 10/27 1930 72 18 167/70 101 10/27 1901 77 22 153/65 94 10/27 1900 76 33 10/27 1731 71 32 122/70 89 97 10/27 1700 67 26 159/71 102 98 10/27 1600 65 29 161/85 117 98 10/27 1501 63 117/79 91 98 10/27 1431 66 129/90 102 98 10/27 1401 63 145/81 107 99 10/27 1330 60 27 128/60 87 98 10/27 1300 58 19 124/61 87 99 10/27 1230 57 29 114/59 82 96 24 hour I O ending at 0700: 10/28 0700 10/27 1900 Intake Total 540 1200 Output Total 800 1000 Balance -260 200 Intake, Oral 540 1200 Number 1 Bowel Movements Output, Urine 800 1000 Patient 73.2 kg Weight Weight Standing scale Measurement Method PATIENT WEIGHT: Weight (lb): 161 Weight (oz): 6.05 Weight (kg): 73.200 Medications: Active Meds + DC'd Last 24 Hrs Dapagliflozin (FARXIGA) 10 MG DAILY PO (PEND) Furosemide (LASIX) 20 MG ONCE ONE PO (DC) Amiodarone HCl (CORDARONE) 200 MG BID PO Spironolactone (ALDACTONE) 12.5 MG DAILY PO Metoprolol Tartrate (LOPRESSOR) 25 MG Q12HR PO Melatonin (Melatonin) 6 MG BEDTIME PRN PRN PO Ipratropium [place] (ATROVENT) 500 MCG RTQ2H PRN PRN INH Cyanocobalamin (Vitamin B-12 500 mcg tab) 500 MCG DAILY PO Ferrous Sulfate (FERROUS SULFATE) 325 MG DAILY PO Bisacodyl (DULCOLAX) 10 MG ONCE PRN RECTAL Hydralazine HCl (APRESOLINE) 50 MG Q8H PRN PRN PO Clopidogrel Bisulfate (Plavix) 75 MG DAILY PO Polyethylene Glycol (MIRALAX) 17 GM DAILY PO Pantoprazole (PROTONIX) 40 MG DAILY@0600 PO Atorvastatin Calcium (LIPITOR) 40 MG 2100 PO Docusate Sodium (COLACE) 100 MG BID PO Sennosides (Senna Lax 8.6 MG TABLET) 17.2 MG BEDTIME PO Aspirin (ASPIRIN) 81 MG DAILY PO Amiodarone HCl (CORDARONE) 200 MG TID PO (DC) Acetaminophen (TYLENOL) 650 MG Q4H PRN PRN PO Acetaminophen (TYLENOL) 650 MG Q4H PRN PRN RECTAL Dextrose/Water (DEXTROSE 10% IN WATER) 125 ML ASDIR PRN IV (CKD) Dextrose/Water (DEXTROSE 10% IN WATER) 250 ML ASDIR PRN IV (CKD) Glucagon (GLUCAGON) 1 MG ASDIR PRN IM Magnesium Sulfate (MAGNESIUM SULFATE 4GM/SWFI 100ML) 100 ML ASDIR PRN IV Magnesium Sulfate (MAGNESIUM SULFATE 2GM/SWFI 50ML) 50 ML ASDIR PRN IV Magnesium Sulfate/Dextrose (MAGNESIUM SULFATE 1GM/D5W 100ML) 100 ML ASDIR PRN IV Ondansetron HCl (ZOFRAN) 4 MG Q6H PRN PRN IV Sodium Chloride (SODIUM CHLORIDE 0.9%) 250 ML Q24H IV Physical Exam General appearance: alert, awake, oriented Head/Eyes: atraumatic, normal conjunctiva/sclera, normal eyelids/periorb. Neck: full range of motion, non-tender, normal thyroid Cardiovascular: normal heart sounds, regular rate rhythm Respiratory: aerating well, clear to auscultation Abdomen: non-tender, normal bowel sounds, soft, no distention Extremities: moves all, no calf tenderness, no edema 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: alert, oriented X 3, CNII-XII intact, normal speech, no motor deficits, no sensory deficits Skin: dry, intact Psychiatry: normal affect, normal judgment/insight Results Findings/Data: Laboratory Tests 10/28 132 Chemistry Sodium (134 - 147 mEq/L) 142 Potassium (3.4 - 5.0 mEq/L) 4.0 Chloride (100 - 108 mEq/L) 111 H Carbon Dioxide (21 - 33 mEq/l) 25 Anion Gap (0 - 20) 10 BUN (7 - 25 mg/dL) 17 Creatinine (0.6 - 1.3 mg/dL) 0.8 Glomerular Filtr Rate (80 - 90) 100.1 H Glucose (77 - 141 mg/dL) 102 Calcium (8.0 - 10.5 mg/dL) 8.4 Magnesium (1.6 - 2.6 mg/dL) 1.82 Laboratory Tests 10/28 132 Hematology WBC (4.5 - 11.0 x10 3/uL) 13.0 H RBC (4.00 - 5.60 x10 6/uL) 2.38 L Hgb (12.5 - 16.9 g/dL) 6.9 L Hct (37.5 - 50.7 %) 21.9 L MCV (81.0 - 99.0 fL) 92.0 MCH (27.0 - 33.0 pg) 29.0 MCHC (33.0 - 37.0 g/dL) 31.5 L RDW (11.5 - 14.5 %) 14.8 H Plt Count (150 - 400 x10 3/uL) 465 H MPV (7.0 - 9.0 fL) 8.9 Neut % (Auto) (56.0 - 77.0 %) 66.1 Lymph % (Auto) (14.0 - 32.0 %) 18.3 [place] % (Auto) (4.8 - 9.0 %) 10.0 H Eos % (Auto) (0.3 - 3.7 %) 3.9 H Baso % (Auto) (0.0 - 2.0 %) 0.4 Neut # (Auto) (2.0 - 7.6 x10 3/uL) 8.56 H Lymph # (Auto) (1.0 - 3.8 x10 3/uL) 2.37 [place] # (Auto) (0.1 - 0.8 x10 3/uL) 1.29 H Eos # (Auto) (0.0 - 0.2 x10 3/uL) 0.51 H Baso # (Auto) (0.0 - 0.2 x10 3/uL) 0.05 Abs Immat Gran (auto) (0.00 - 0.03 x10 3/uL) 0.17 H Immature Gran % (0.0 - 2.0 %) 1.3 Nucleated RBC % (0 - 0 %) 0.3 H Nucleated RBCs # (Man) (0.0 - 0.1 x10 3/uL) 0.04 Diagnosis, Assessment Plan Consultants: cardiology Free Text DxA P Notes Free text DxA P notes: 63 YO male with CAD with stent Substance use HTN heart disease with HF Chronic systolic HF EF 35-39% Right carotid stenosis 50-69% anemia -- due to acute blood loss 10/15 tele cardiology consult continue ASA/plavix /lipitor CHF -- continue lasix and aldactone -- cozaar HTN- continue coreg 10/16- no cp no sob -- cath today -- post cath -- CABG evaluation 10/17 CABG next week, medically stable to proceed 10/18 CABG next week, Chest CT scan showed ? Pericardal effusion. stable to proceed 10/19 Vitals and labs stable today. No acute complaints. CABG later then week per surgeon. 10/20 labs and vitals remains stable. CABG later this week when surgery schedules. 10/22 S/P CABG 10/21. Continue postop care per CT surgery in ICU. Monitor chest tube OP. Monitor hgb, transfuse if hgb <7. S/P 1 unit PRBC. PT/OT for OOB. DC planning, possible SNF vs IPR. 10/23 Continue post-op care. PT/OT. Chest tubes out. Labs noted, CMP ok. Monitor Hgb and WBC. Rehab eval. 10/24- he sit on the chair no sob no dizziness -- he is hemodynamic stable -- HB-- 6.3- 6.1-- monitor H H --blood transfuse as CV surgeon and critical care --continue monitor in CV icu -- lab review 10/25 -- he had bowel movement . he is doing well . ambulate with PT -- he is hemodynamic stable -- H h -- 6.4- stable -- as cv surgeon -- continue PT/OT -- CM-- rehab or SNF placement 10/27 Continue post-op care per surgeon. Monitor H+H, no order for transfusion at this time, same range for few days, asymptomatic. PT/OT. To floor when cardio surg ok. 10/28- no complaint -- he is hemodynamic stable -- transfer out of icu --pending floor bed -- lab review -- Hb --6.9 at 1224 RPT #:[id number] END OF REPORT [facility] 2024-10-28 10:44:00 [facility] ([facility]) Heart Failure Progress Note REPORT#:[id number] REPORT STATUS: Signed REPORT INITIALIZATION DATE:10/28/24 TIME: 104 PATIENT: CLEO LONG UNIT #: [id number] ROOM/BED: [place] [id number] : 61 AGE: 63 SEX: M ATTEND: Shyla Zepeda MD ADM AUTHOR: Doni Mcarthur [employer] REPT SERVICE DT/TIME: 10/28/24 1044 * ALL edits or amendments must be made on the electronic/computer document * Doni Mcarthur 10/28/24 1044: Subjective HPI: Currently, pt is sitting in a chair, awake, appears tired, O2 sat 96% RA. Dr Neal explained HFrEF and GDMT. Objective General VS/I O: Vital Signs Vital Signs Date Time Temp Pulse Resp B/P B/P Pulse O2 O2 Flow FiO2 Mean Ox Delivery Rate 10/28 0759 96 Room air 21 10/28 0455 68 22 10/28 0430 65 16 188/82 118 10/28 0400 67 29 141/72 100 97 10/28 0331 66 26 144/72 101 96 10/28 0300 64 20 155/70 100 97 10/28 0231 68 29 148/116 128 96 10/28 0200 65 34 10/28 0130 62 29 150/82 110 97 10/28 0101 66 24 147/111 123 96 10/28 0100 62 36 97 10/28 0030 62 29 163/75 108 97 10/28 0000 62 25 147/73 102 97 10/27 2330 63 29 157/76 109 97 10/27 2300 60 21 151/73 99 97 10/27 2231 59 19 154/67 96 97 10/27 2206 59 26 133/62 89 97 10/27 2200 60 27 96 10/27 2130 58 20 168/77 110 98 10/27 2101 64 14 162/72 104 98 10/27 2100 64 13 98 10/27 2030 69 21 136/63 91 96 10/27 2015 96 Room air 21 10/27 2005 72 21 133/63 91 96 10/27 2000 98.2 10/27 2000 72 22 96 10/27 1930 72 18 167/70 101 10/27 1901 77 22 153/65 94 10/27 1900 76 33 10/27 1731 71 32 122/70 89 97 10/27 1700 67 26 159/71 102 98 10/27 1600 65 29 161/85 117 98 10/27 1501 63 117/79 91 98 10/27 1431 66 129/90 102 98 10/27 1401 63 145/81 107 99 10/27 1330 60 27 128/60 87 98 10/27 1300 58 19 124/61 87 99 10/27 1230 57 29 114/59 82 96 10/27 1200 61 32 123/73 92 95 10/27 1138 64 31 130/61 88 95 10/27 1130 96 Room air 21 10/27 1101 58 12 146/63 91 99 10/27 1030 59 24 121/60 87 97 10/27 1001 59 25 117/57 82 97 10/27 0942 71 22 158/68 98 99 10/27 0931 66 25 170/77 111 99 10/27 0900 66 24 139/74 100 95 10/27 0830 66 24 176/82 118 99 10/27 0804 63 26 158/75 108 98 10/27 0800 97.8 10/27 0731 68 29 149/77 106 97 10/27 0723 97 Room air 21 10/27 0711 64 23 98 10/27 0700 65 24 162/80 115 98 10/27 0630 65 19 147/80 106 100 10/27 0600 67 20 162/77 110 98 10/27 0534 69 19 153/72 104 96 10/27 0500 66 27 149/84 111 96 10/27 0430 65 18 172/81 116 99 10/27 0400 65 20 155/76 109 98 10/27 0335 64 134/72 98 97 10/27 0300 64 15 134/75 98 10/27 0230 65 23 159/76 109 96 10/27 0200 63 22 138/78 102 98 10/27 0130 64 25 122/77 96 97 10/27 0100 64 28 130/74 97 95 10/27 0030 61 26 148/66 95 97 10/27 0001 64 25 128/70 93 98 10/27 0000 63 28 97 10/26 2331 66 24 98 10/26 2300 68 144/75 101 99 10/26 2230 67 148/67 97 97 10/26 2212 69 29 98 10/26 2201 72 28 157/70 101 98 10/26 2200 71 30 99 10/26 2130 72 24 143/77 103 100 10/26 2100 72 25 124/62 83 97 10/26 2040 73 97 10/26 2031 73 30 98 10/26 2004 71 26 165/72 104 98 10/26 2000 98.4 10/26 2000 73 25 96 10/26 1942 73 29 167/76 113 99 10/26 1941 73 40 100 10/26 1930 74 31 100 10/26 1916 99 Room air 10/26 1901 75 33 160/76 109 99 10/26 1900 75 27 99 10/26 1831 74 21 108/74 87 100 10/26 1800 72 29 121/58 83 98 10/26 1701 73 28 155/72 103 98 10/26 1627 76 30 151/74 106 98 10/26 1500 67 23 98 10/26 1400 67 26 100 10/26 1304 67 153/67 97 100 10/26 1200 62 26 126/58 83 98 10/26 1112 63 22 125/59 85 98 24 hour I O ending at 0700: 10/28 0700 10/27 1900 Intake Total 540 1200 Output Total 800 1000 Balance -260 200 Intake, Oral 540 1200 Number 1 Bowel Movements Output, Urine 800 1000 Patient 161 lb Weight Weight Standing scale Measurement Method PATIENT WEIGHT: Weight (lb): 161 Weight (oz): 6.05 Weight (kg): 73.200 Medications: Vital Signs Date Time Temp Pulse Resp B/P B/P Pulse O2 O2 Flow FiO2 Mean Ox Delivery Rate 10/28 0759 96 Room air 21 10/28 0455 68 22 10/28 0430 65 16 188/82 118 10/28 0400 67 29 141/72 100 97 10/28 0331 66 26 144/72 101 96 10/28 0300 64 20 155/70 100 97 10/28 0231 68 29 148/116 128 96 10/28 0200 65 34 10/28 0130 62 29 150/82 110 97 10/28 0101 66 24 147/111 123 96 10/28 0100 62 36 97 10/28 0030 62 29 163/75 108 97 10/28 0000 62 25 147/73 102 97 10/27 2330 63 29 157/76 109 97 10/27 2300 60 21 151/73 99 97 10/27 2231 59 19 154/67 96 97 10/27 2206 59 26 133/62 89 97 10/27 2200 60 27 96 10/27 2130 58 20 168/77 110 98 10/27 2101 64 14 162/72 104 98 10/27 2100 64 13 98 10/27 2030 69 21 136/63 91 96 10/27 2015 96 Room air 21 10/27 2005 72 21 133/63 91 96 10/27 2000 98.2 10/27 2000 72 22 96 10/27 1930 72 18 167/70 101 10/27 1901 77 22 153/65 94 10/27 1900 76 33 10/27 1731 71 32 122/70 89 97 10/27 1700 67 26 159/71 102 98 10/27 1600 65 29 161/85 117 98 10/27 1501 63 117/79 91 98 10/27 1431 66 129/90 102 98 10/27 1401 63 145/81 107 99 10/27 1330 60 27 128/60 87 98 10/27 1300 58 19 124/61 87 99 10/27 1230 57 29 114/59 82 96 10/27 1200 61 32 123/73 92 95 10/27 1138 64 31 130/61 88 95 10/27 1130 96 Room air 21 10/27 1101 58 12 146/63 91 99 10/27 1030 59 24 121/60 87 97 10/27 1001 59 25 117/57 82 97 10/27 0942 71 22 158/68 98 99 10/27 0931 66 25 170/77 111 99 10/27 0900 66 24 139/74 100 95 12/17 0830 66 24 176/82 118 99 /17 0804 63 26 158/75 108 98 /17 0800 97.8 12/17 0731 68 29 149/77 106 97 /17 0723 97 Room air 21 /17 0711 64 23 98 12/17 0700 65 24 162/80 115 98 /17 0630 65 19 147/80 106 100 /17 0600 67 20 162/77 110 98 /17 0534 69 19 153/72 104 96 /17 0500 66 27 149/84 111 96 /17 0430 65 18 172/81 116 99 /17 0400 65 20 155/76 109 98 /17 0335 64 134/72 98 97 /17 0300 64 15 134/75 98 /17 0230 65 23 159/76 109 96 /17 0200 63 22 138/78 102 98 10/27 0130 64 25 122/77 96 97 /17 0100 64 28 130/74 97 95 17 0030 61 26 148/66 95 97 /17 0001 64 25 128/70 93 98 /17 0000 63 28 97 16 2331 66 24 98 16 2300 68 144/75 101 99 16 2230 67 148/67 97 97 16 2212 69 29 98 16 2201 72 28 157/70 101 98 /16 2200 71 30 99 16 2130 72 24 143/77 103 100 16 2100 72 25 124/62 83 97 16 2040 73 97 10/26 2031 73 30 98 10/26 2004 71 26 165/72 104 98 16 1999 98.4 16 1999 73 25 96 16 1942 73 29 167/76 113 99 16 1941 73 40 100 16 1930 74 31 100 16 1916 99 Room air 16 1901 75 33 160/76 109 99 16 1900 75 27 99 12/16 1831 74 21 108/74 87 100 12/16 1800 72 29 121/58 83 98 /16 1701 73 28 155/72 103 98 /16 1627 76 30 151/74 106 98 /16 1500 67 23 98 12/16 1400 67 26 100 12/16 1304 67 153/67 97 100 12/16 1200 62 26 126/58 83 98 Active Meds + DC'd Last 24 Hrs Amiodarone HCl (CORDARONE) 200 MG BID PO Spironolactone (ALDACTONE) 12.5 MG DAILY PO Metoprolol Tartrate (LOPRESSOR) 25 MG Q12HR PO Melatonin (Melatonin) 6 MG BEDTIME PRN PRN PO Ipratropium [place] (ATROVENT) 500 MCG RTQ2H PRN PRN INH Cyanocobalamin (Vitamin B-12 500 mcg tab) 500 MCG DAILY PO Ferrous Sulfate (FERROUS SULFATE) 325 MG DAILY PO Bisacodyl (DULCOLAX) 10 MG ONCE PRN RECTAL Hydralazine HCl (APRESOLINE) 50 MG Q8H PRN PRN PO Clopidogrel Bisulfate (Plavix) 75 MG DAILY PO Polyethylene Glycol (MIRALAX) 17 GM DAILY PO Pantoprazole (PROTONIX) 40 MG DAILY@0600 PO Atorvastatin Calcium (LIPITOR) 40 MG 2100 PO Docusate Sodium (COLACE) 100 MG BID PO Sennosides (Senna Lax 8.6 MG TABLET) 17.2 MG BEDTIME PO Aspirin (ASPIRIN) 81 MG DAILY PO Amiodarone HCl (CORDARONE) 200 MG TID PO (DC) Acetaminophen (TYLENOL) 650 MG Q4H PRN PRN PO Acetaminophen (TYLENOL) 650 MG Q4H PRN PRN RECTAL Dextrose/Water (DEXTROSE 10% IN WATER) 125 ML ASDIR PRN IV (CKD) Dextrose/Water (DEXTROSE 10% IN WATER) 250 ML ASDIR PRN IV (CKD) Glucagon (GLUCAGON) 1 MG ASDIR PRN IM Magnesium Sulfate (MAGNESIUM SULFATE 4GM/SWFI 100ML) 100 ML ASDIR PRN IV Magnesium Sulfate (MAGNESIUM SULFATE 2GM/SWFI 50ML) 50 ML ASDIR PRN IV Magnesium Sulfate/Dextrose (MAGNESIUM SULFATE 1GM/D5W 100ML) 100 ML ASDIR PRN IV Ondansetron HCl (ZOFRAN) 4 MG Q6H PRN PRN IV Sodium Chloride (SODIUM CHLORIDE 0.9%) 250 ML Q24H IV Physical Exam General appearance: alert, awake, oriented, no acute distress, conversational, no respiratory distress Cardiovascular: regular rate and rhythm Respiratory: no distress Extremities: no edema 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: alert, oriented X 3, normal speech Skin: dry, normal color Psychiatry: normal affect, normal judgment/insight, normal mood Results Findings/data: Laboratory Tests 10/28 132 Chemistry Sodium (134 - 147 mEq/L) 142 Potassium (3.4 - 5.0 mEq/L) 4.0 Chloride (100 - 108 mEq/L) 111 H Carbon Dioxide (21 - 33 mEq/l) 25 Anion Gap (0 - 20) 10 BUN (7 - 25 mg/dL) 17 Creatinine (0.6 - 1.3 mg/dL) 0.8 Glomerular Filtr Rate (80 - 90) 100.1 H Glucose (77 - 141 mg/dL) 102 Calcium (8.0 - 10.5 mg/dL) 8.4 Magnesium (1.6 - 2.6 mg/dL) 1.82 Laboratory Tests 10/28 132 Hematology WBC (4.5 - 11.0 x10 3/uL) 13.0 H RBC (4.00 - 5.60 x10 6/uL) 2.38 L Hgb (12.5 - 16.9 g/dL) 6.9 L Hct (37.5 - 50.7 %) 21.9 L MCV (81.0 - 99.0 fL) 92.0 MCH (27.0 - 33.0 pg) 29.0 MCHC (33.0 - 37.0 g/dL) 31.5 L RDW (11.5 - 14.5 %) 14.8 H Plt Count (150 - 400 x10 3/uL) 465 H MPV (7.0 - 9.0 fL) 8.9 Neut % (Auto) (56.0 - 77.0 %) 66.1 Lymph % (Auto) (14.0 - 32.0 %) 18.3 [place] % (Auto) (4.8 - 9.0 %) 10.0 H Eos % (Auto) (0.3 - 3.7 %) 3.9 H Baso % (Auto) (0.0 - 2.0 %) 0.4 Neut # (Auto) (2.0 - 7.6 x10 3/uL) 8.56 H Lymph # (Auto) (1.0 - 3.8 x10 3/uL) 2.37 [place] # (Auto) (0.1 - 0.8 x10 3/uL) 1.29 H Eos # (Auto) (0.0 - 0.2 x10 3/uL) 0.51 H Baso # (Auto) (0.0 - 0.2 x10 3/uL) 0.05 Abs Immat Gran (auto) (0.00 - 0.03 x10 3/uL) 0.17 H Immature Gran % (0.0 - 2.0 %) 1.3 Nucleated RBC % (0 - 0 %) 0.3 H Nucleated RBCs # (Man) (0.0 - 0.1 x10 3/uL) 0.04 Laboratory Tests Test Result Date Time Chemistry B-Natriuretic Peptide (0 - 100 PG/ML) 109.0 H 10/14 2108 Recent Impressions: RADIOLOGY - XR CHEST 1 V 10/28 521 Report Impression - Status: SIGNED Entered: 10/28/2024 08 IMPRESSION: Bibasilar opacities more prominent on the left, appear improved from the prior study. Impression By: Adry - Cruzito Centeno M.D. Results: labs reviewed, vital signs reviewed, rhythm personally rev'd, current med profile rev'd Telemetry interpretation: SR rate 71 Diagnosis, Assessment Plan Consultants: cardiology Free Text DxA P Notes Free text DxA P notes: This is a 63 y.o male with medical history of HTN, CHF, CAD with 7 stents, who was transfered to [facility] on 10/14/24 from [facility] with NSTEMI. LHC was performed on 10/16/24- two vessel CAD, CABG was recommended. 10/21/24 the patient underwent CABG x4 (NIEVES-LAD, SVG-DIAG, SVG-OM1, SVG-Om2) Bilateral EVH, ALAA, PP. ECHO on 10/15/24- Pre-op LVEF 35-39% ECHO on 10/25/24- Post-op * Left ventricle: Systolic function is mildly reduced. * The IVC is normal-sized [id number]% start Farxiga 10mg po daily lasix 20mg po x1 monitor for volume overload Maintain MAP 70-90 keep CVP 8-10 Strict I O and daily standing weight Maintain K 4 and Mg 2 Trend CBC, BMP, Mg BP 143/68 SR rate 71 I O -60cc x24hrs GDMT: * Metoprolol Tartrate 15mg po Bid * Spironolactone 12.5mg po daily * Farxiga 10mg po daily CAD/s/p CABG x4 (NIEVES-LAD, SVG-DIAG, SVG-OM1, SVG-Om2) con't Meds: Amiodarone, Plavix, ASA, Atorvastatin, Metoprolol tartrate con't PT/OT Hyperlipidemia: Continue statin Hypertension: Continue Metoprolol tartrate 25mg po bid Reid Neal 10/28/24 1236: Attestations Physician Attestation Agree w/findings plan: CAD/s/p CABG x 4 (NIEVES-LAD, SVG-DIAG, SVG-OM1, SVG-OM2,) ALAA HFrEF-acute on chronic Hypertension Hyperlipidemia Patient is hemodynamically stable Start Farxiga Continue metoprolol and spironolactone Patient is euvolemic-maintain I's and O's net even continue DAPT with aspirin and Plavix Continue metoprolol, Lipitor and amiodarone Maintain MAP 70-90 Maintain CVP 8-10 Strict I Os and daily standing weight Maintain K 4 and Mg 2 Trend CBC, BMP I agree with the history, physical, and the assessment and plan as outlined by Doni Mcarthur NP. I have personally seen and examined the patient independently, and reviewed the patient's history, exam, and all cardiac and laboratory data. I was present and supervised. at 1121 at 1304 [facility] #:[id number] END OF REPORT [facility] 2024-10-28 09:14:00 [facility] Cardiothoracic Surgery Prog REPORT#:[id number] REPORT STATUS: Signed REPORT INITIALIZATION DATE:10/28/24 TIME: 913 PATIENT: CLEO LONG UNIT #: [id number] ROOM/BED: [place] [id number] : 61 AGE: 63 SEX: M ATTEND: Shyla Zepeda MD ADM AUTHOR: Elicia Fishman APRN REPT SERVICE DT/TIME: 10/28/24 0914 * ALL edits or amendments must be made on the electronic/computer document * General Post-op: day 7 Status post: 10/21/2024 1. Coronary artery bypass graft surgery x4 (NIEVES to LAD, saphenous vein to diagonal, saphenous vein to first marginal, saphenous vein to second marginal). 2. Amputation of left atrial appendage. 3. Endoscopic vein harvest independent bilateral greater saphenous vein. 4. Posterior pericardiotomy. Subjective Chief complaint: s/p CABG Review of Systems Constitutional: Reports: fatigue. Denies: chills, fever, generalized weakness. Skin: Denies: abrasion, contusion, ecchymosis. Allergy/Immun: Denies: allergic reaction, hives, rhinorrhea. Eyes: Denies: redness, itching, diplopia. Respiratory: Denies: BAIG (dyspnea on exertion), hemoptysis, non productive cough, pleuritic pain. Cardiovascular: Denies: chest pain, palpitations. GI: Denies: abdominal pain, nausea, vomiting. Heme: Denies: adenopathy, bleeding, bruising. Endocrine: Denies: cold intolerance, heat intolerance, polyphagia. Neuro: Denies: confusion, dizziness, seizure, syncope. All systems rev neg: except as marked Objective General VS/I O Last Documented: Result Date Time Pulse Ox 96 10/28 0759 FiO2 21 10/28 0759 O2 Delivery Room air 10/28 0759 Pulse 68 10/28 0455 Resp 22 10/28 0455 B/P 188/82 10/28 0430 B/P Mean 118 10/28 0430 Temp 98.2 10/27 2000 O2 Flow Rate 3 10/23 1121 24 hour I O ending at 0700: 10/28 0700 10/27 1900 Intake Total 540 1200 Output Total 800 1000 Balance -260 200 Intake, Oral 540 1200 Number 1 Bowel Movements Output, Urine 800 1000 Patient 73.2 kg Weight Weight Standing scale Measurement Method PATIENT WEIGHT: Weight (lb): 161 Weight (oz): 6.05 Weight (kg): 73.200 Dietitian Nutrition assessment The data set between the solid lines has been imported from the dietitian's assessment. BMI Calculated: 23.2 Nutrition related diagnosis: Nutrition diagnosis details: Nutrition problem: No nutrition diagnosis Nutrition etiology: Nutrition signs and symptoms: Nutrition prescription: 1. continue current cardiac diet Dietitian name: Rubi Cai RD, LD Assessment completed: 10/22/24 Physical Exam General appearance: alert, awake, oriented Wound/incision: Location: sternum Site condition: edges approximated, incision intact HEENT: anicteric, mucosal membranes moist, pupils reactive to light Neck: full range of motion, non-tender Cardiovascular: normal heart sounds, regular rate rhythm Respiratory: decreased breath sounds, wheezing, symmetric expansion, no distress Abdomen: soft, non-tender Genitourinary: no bladder distention, no flank pain Extremities: dry, moves all Musculoskeletal: full range of motion, painless range of motion 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: alert, oriented X 3 Skin: dry, intact Psychiatry: normal affect, normal mood Current Medications Medications: Active Meds + DC'd Last 24 Hrs Amiodarone HCl (CORDARONE) 200 MG BID PO Spironolactone (ALDACTONE) 12.5 MG DAILY PO Metoprolol Tartrate (LOPRESSOR) 25 MG Q12HR PO Melatonin (Melatonin) 6 MG BEDTIME PRN PRN PO Ipratropium [place] (ATROVENT) 500 MCG RTQ2H PRN PRN INH Cyanocobalamin (Vitamin B-12 500 mcg tab) 500 MCG DAILY PO Ferrous Sulfate (FERROUS SULFATE) 325 MG DAILY PO Bisacodyl (DULCOLAX) 10 MG ONCE PRN RECTAL Hydralazine HCl (APRESOLINE) 50 MG Q8H PRN PRN PO Amlodipine Besylate (NORVASC) 5 MG DAILY PO (DC) Clopidogrel Bisulfate (Plavix) 75 MG DAILY PO Polyethylene Glycol (MIRALAX) 17 GM DAILY PO Pantoprazole (PROTONIX) 40 MG DAILY@0600 PO Atorvastatin Calcium (LIPITOR) 40 MG 2100 PO Docusate Sodium (COLACE) 100 MG BID PO Sennosides (Senna Lax 8.6 MG TABLET) 17.2 MG BEDTIME PO Aspirin (ASPIRIN) 81 MG DAILY PO Amiodarone HCl (CORDARONE) 200 MG TID PO (DC) Acetaminophen (TYLENOL) 650 MG Q4H PRN PRN PO Acetaminophen (TYLENOL) 650 MG Q4H PRN PRN RECTAL Calcium Chloride (CALCIUM CHLORIDE) 1 GM ASDIR PRN IV (DC) Dextrose/Water (DEXTROSE 10% IN WATER) 125 ML ASDIR PRN IV (CKD) Dextrose/Water (DEXTROSE 10% IN WATER) 250 ML ASDIR PRN IV (CKD) Epinephrine (ADRENALIN CHLORIDE) 4 MG ASDIR IV (DC) Dextrose/Water (DEXTROSE 5% WATER) 246 ML Glucagon (GLUCAGON) 1 MG ASDIR PRN IM Magnesium Sulfate (MAGNESIUM SULFATE 4GM/SWFI 100ML) 100 ML ASDIR PRN IV Magnesium Sulfate (MAGNESIUM SULFATE 2GM/SWFI 50ML) 50 ML ASDIR PRN IV Magnesium Sulfate/Dextrose (MAGNESIUM SULFATE 1GM/D5W 100ML) 100 ML ASDIR PRN IV Nitroglycerin/Dextrose (NITROGLYCERIN 50,000MCG/D5W 250ML) 250 ML ASDIR IV (DC) Norepinephrine/Dextrose (Norepinephrine 8 MG/D5W 250 mL) 250 ML TITRATE IV (DC) Ondansetron HCl (ZOFRAN) 4 MG Q6H PRN PRN IV Potassium Chloride (KCL 20MEQ/SWFI 100ML) 100 ML ASDIR PRN IV (DC) Sodium Bicarbonate (SODIUM BICARBONATE) 50 MEQ ASDIR PRN IV (DC) Sodium Chloride (SODIUM CHLORIDE 0.9%) 250 ML Q24H IV Results Findings/Data: Laboratory Tests 10/28 0132 Chemistry Sodium (134 - 147 mEq/L) 142 Potassium (3.4 - 5.0 mEq/L) 4.0 Chloride (100 - 108 mEq/L) 111 H Carbon Dioxide (21 - 33 mEq/l) 25 Anion Gap (0 - 20) 10 BUN (7 - 25 mg/dL) 17 Creatinine (0.6 - 1.3 mg/dL) 0.8 Glomerular Filtr Rate (80 - 90) 100.1 H Glucose (77 - 141 mg/dL) 102 Calcium (8.0 - 10.5 mg/dL) 8.4 Magnesium (1.6 - 2.6 mg/dL) 1.82 Laboratory Tests 10/28 0132 Hematology WBC (4.5 - 11.0 x10 3/uL) 13.0 H RBC (4.00 - 5.60 x10 6/uL) 2.38 L Hgb (12.5 - 16.9 g/dL) 6.9 L Hct (37.5 - 50.7 %) 21.9 L MCV (81.0 - 99.0 fL) 92.0 MCH (27.0 - 33.0 pg) 29.0 MCHC (33.0 - 37.0 g/dL) 31.5 L RDW (11.5 - 14.5 %) 14.8 H Plt Count (150 - 400 x10 3/uL) 465 H MPV (7.0 - 9.0 fL) 8.9 Neut % (Auto) (56.0 - 77.0 %) 66.1 Lymph % (Auto) (14.0 - 32.0 %) 18.3 [place] % (Auto) (4.8 - 9.0 %) 10.0 H Eos % (Auto) (0.3 - 3.7 %) 3.9 H Baso % (Auto) (0.0 - 2.0 %) 0.4 Neut # (Auto) (2.0 - 7.6 x10 3/uL) 8.56 H Lymph # (Auto) (1.0 - 3.8 x10 3/uL) 2.37 [place] # (Auto) (0.1 - 0.8 x10 3/uL) 1.29 H Eos # (Auto) (0.0 - 0.2 x10 3/uL) 0.51 H Baso # (Auto) (0.0 - 0.2 x10 3/uL) 0.05 Abs Immat Gran (auto) (0.00 - 0.03 x10 3/uL) 0.17 H Immature Gran % (0.0 - 2.0 %) 1.3 Nucleated RBC % (0 - 0 %) 0.3 H Nucleated RBCs # (Man) (0.0 - 0.1 x10 3/uL) 0.04 Radiology data: Recent Impressions: RADIOLOGY - XR CHEST 1 V 10/28 521 Report Impression - Status: SIGNED Entered: 10/28/2024 0807 IMPRESSION: Bibasilar opacities more prominent on the left, appear improved from the prior study. Impression By: Adry Centeno M.D. Results: labs reviewed, vital signs stable, rythm personally rev'd, x-ray personally reviewed, current med profile rev'd Treatment Prophylaxis Treatment Prophylaxis CVC/PICC documentation: The data below has been imported from nursing documentation. Any exceptions have been noted below under Provider comments. CVC/PICC insertion date/time: No CVC/PICC Provider comments on imported nursing data: [] Quality: Trauma Gen Surg Current Medications Current medication review: Current Medications Sig/Nia Start time Last Medication Dose Route Stop Time Status Admin Aspirin 81 MG BEDTIME 10/15 2100 AC PO 01/13 2059 Acetaminophen 650 MG Q6H PRN PRN 10/15 1030 AC PO 01/13 1029 Clopidogrel Bisulfate 75 MG DAILY 10/15 1030 AC PO 01/13 1029 Morphine Sulfate 2 MG Q4H PRN PRN 10/15 1030 AC IV 10/20 1029 Ondansetron HCl 4 MG Q4H PRN PRN 10/15 1030 AC IV 01/13 1029 Albuterol/Ipratropium 3 ML X1ED STA 10/14 2127 DC 10/14 NEB 10/14 2128 2148 Aspirin 324 MG X1ED STA 10/14 2105 DC PO 10/14 2106 Home Medications: FUROSEMIDE (LASIX) 20 MG PO DAILY LOSARTAN 100 MG PO DAILY SPIRONOLACTONE (ALDACTONE) 25 MG PO DAILY ASPIRIN 81 MG PO DAILY CARVEDILOL (carvediloL) 12.5 MG PO BID CLOPIDOGREL (PLAVIX) 75 MG PO DAILY ATORVASTATIN (LIPITOR) 80 MG PO BEDTIME I attest that the foregoing medication list in the medical record is true, accurate, and complete to the best of my knowledge. Diagnosis, Assessment Plan Hospital course to date: This is a 63-year-old male with a past medical history of HTN, HLD, CHF and CAD with s/p 7 stents who presented with complaints of chest pain. The pain did not radiate. Labs include troponin of 71, and all other labs unremarkable. Patient was transferred to [facility] from [facility] due to NSTEMI. He denies recent fever, cough, shortness of breath, or edema. 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 Left circumflex large dominant vessel first obtuse marginal is patent has stents that looks fine another stent in the mid circumflex beyond the obtuse marginal that has 80 to 90% focal severe restenosis otherwise circumflex distally has diffuse disease distal disease. RCA small nondominant vessel. CV surgery consulted for evaluation of multi-vessel coronary artery disease. Dr. Ko has seen and examined the patient. Thank you for this kind consultation. Assessment/Plan: 1. Multi-vessel coronary artery disease s/p stents 2. Hypertension 3. Hyperlipidemia Patient not able to answer questions due to sedation effects following [place] CABG workup initiated CT chest w/o contrast Vein mapping and marking Carotid US Urinalysis MRSA/MSSA Hemoglobin A1C Patient seen and examined by Dr. Ko. All questions answered. 10/17/24 Patient alert, awake, oriented, denies any chest pain Breathing comfortable on room air, encourage incentive spirometer teaching Labs and imaging reviewed Last dose of Plavix on 10/16, check platelet response to Plavix Urinalysis negative Hemoglobin A1c 5.[address] chest and MRSA/MSSA Carotid duplex shows 50 to 69% right internal carotid artery stenosis Vein mapping reviewed, veins not visualized on left knee and calf area Echocardiogram shows EF 35 to 39%, moderate to severe diffuse hypokinesis, grade 1 diastolic dysfunction, aortic valve thickening consistent with sclerosis, mild MR, small to moderate pericardial effusion Transfer to CVN 1 Further recommendations to follow Patient seen and examined by Dr. Ko, discussed plan of care with patient, questions were answered 10/18/24 Patient alert, awake, oriented, denies any chest pain Breathing comfortable on room air, encourage incentive spirometer teaching Labs and imaging reviewed, patient had positive drug screen amphetamines and cannabis, educated patient on drug cessation Last dose of Plavix on 10/16, check platelet response to Plavix-87 Urinalysis negative Hemoglobin A1c 5.[address] chest and MRSA/MSSA- Carotid duplex shows 50 to 69% right internal carotid artery stenosis Vein mapping reviewed, veins not visualized on left knee and calf area Echocardiogram shows EF 35 to 39%, moderate to severe diffuse hypokinesis, grade 1 diastolic dysfunction, aortic valve thickening consistent with sclerosis, mild MR, small to moderate pericardial effusion Plan for surgery in upcoming week once platelet response to Plavix improved Patient seen and examined by Dr. Ko, discussed plan of care with patient, questions were answered. 10/19/24 Patient alert, awake, oriented, denies any chest pain Breathing comfortable on room air, encourage incentive spirometer teaching Labs and imaging reviewed, patient had positive drug screen amphetamines and cannabis, educated patient on drug cessation Last dose of Plavix on 10/16, check platelet response to Plavix-87 - Repeat Platelet response and TEG tomorrow morning Urinalysis negative Hemoglobin A1c 5.3 CT chest completed, showing Cardiomegaly with a 2 cm thick pericardial effusion MRSA/MSSA negative Carotid duplex shows 50 to 69% right internal carotid artery stenosis Vein mapping reviewed, veins not visualized on left knee and calf area Echocardiogram shows EF 35 to 39%, moderate to severe diffuse hypokinesis, grade 1 diastolic dysfunction, aortic valve thickening consistent with sclerosis, mild MR, small to moderate pericardial effusion Plan for surgery later in the week once platelet response to Plavix has improved Patient seen and examined by Dr. Ko, discussed plan of care with patient, questions were answered. 10/20/24 Patient alert, awake, oriented, denies any chest pain Breathing comfortable on room air, encourage incentive spirometer teaching Labs and imaging reviewed, patient had positive drug screen amphetamines and cannabis, educated patient on drug cessation Last dose of Plavix on 10/16, check platelet response to Plavix-87 -Platelet response today is 109, TEG completed ADP % inhibition 20.6, ADP 59.4 Urinalysis negative Hemoglobin A1c 5.3 CT chest completed, showing Cardiomegaly with a 2 cm thick pericardial effusion MRSA/MSSA negative Carotid duplex shows 50 to 69% right internal carotid artery stenosis Vein mapping reviewed, veins not visualized on left knee and calf area Echocardiogram shows EF 35 to 39%, moderate to severe diffuse hypokinesis, grade 1 diastolic dysfunction, aortic valve thickening consistent with sclerosis, mild MR, small to moderate pericardial effusion PFTs to be completed tomorrow Surgery will be scheduled later this week. Patient seen and examined by Dr. Ko, discussed plan of care with patient, questions were answered. 10/21/24 Events occurred yesterday and overnight, where patient had went missing for a couple hours during the evening and then the family was found vaping in the patient's room. Dr. Ko discussed with the patient the expectations and rules that must be followed while in the hospital. The patient understands, and agreed that he would abstain from any drug use or smoking. A drug toxicology screen was completed, positive for Cannabinoids. Patient will benefit from surgical revascularization, Dr. Ko explained to the patient and family the need for coronary artery bypass graft surgery. He explained in detail the operation, risks involved, STS risk score calculator, benefits, alternatives, and complications. Patient acknowledges understanding and is agreeable to proceed, all questions were answered and consent is obtained. Patient is scheduled for coronary artery bypass graft surgery this afternoon. 1. Coronary artery bypass graft surgery x4 (NIEVES to LAD, saphenous vein to diagonal, saphenous vein to first marginal, saphenous vein to second marginal). 2. Amputation of left atrial appendage. 3. Endoscopic vein harvest independent bilateral greater saphenous vein. 4. Posterior pericardiotomy. 10/22/24 POD 1 Patient alert, awake, oriented, reports pain uncontrolled Labs reviewed, hemoglobin 7.6, given 1 unit of PRBC yesterday, replace electrolytes as needed, creatinine 1.1 H H at noon Breathing comfortably on RA, encourage incentive spirometer use and deep breathing, nebs, chest x-ray reviewed Chest tube outputs LP 260cc, MS 270cc overnight, keep in place and continue monitoring, will reassess after ambulation Normal sinus rhythm, epicardial pacing wires on standby, monitoring blood pressure, CVP 7 Advance diet as tolerated, nutritional supplements, bowel regimen, monitoring BS Dinesh, Urine output overnight 1020cc, strict I's O's, daily standing scale weights, +2428 24 hr- fluid balance PT/OT, OOB for all meals, encourage ambulation DVT prophylaxis with SCDs, GI prophylaxis with PPI Disposition: patient and family admitted yesterday they are not at one specific place living. Consult case management for possible SNF vs. rehab Continue supportive care ICC following Patient seen and examined by Dr. Ko. Discussed plan of care with patient, nurse and interdisciplinary team. All questions answered. 10/23/24 POD 2 Patient alert, awake, oriented, reports pain uncontrolled, on nitro gtt Labs reviewed, hgb 7.2, replace electrolytes as needed On 8L HFNC, wean as tolerated, encourage incentive spirometer use and deep breathing, nebs, chest x-ray reviewed Normal sinus rhythm, epicardial pacing wires on standby, monitoring blood pressure, increase BB to metoprolol 50mg BID, add amlodipine 5mg daily, CVP 8 Advance diet as tolerated, nutritional supplements, bowel regimen, monitoring BS Montiel, Urine output overnight 525cc, strict I's O's, daily standing scale weights, +479 24 hr- fluid balance, weight trending up PT/OT, OOB for all meals, encourage ambulation DVT prophylaxis with SCDs, GI prophylaxis with PPI Disposition: patient and family admitted they are not at one specific place living. Case management following, SNF vs. rehab Continue supportive care ICC following, JEFF montiel Patient seen and examined by Dr. Ko. Discussed plan of care with patient, nurse and interdisciplinary team. All questions answered. 10/24/24 POD 3 Patient alert, awake, oriented, reports pain improving. Labs reviewed, HGB 6.1- Moniotr Closely, repeat H7H this afternoon. replace electrolytes as needed On 4L, wean as tolerated, encourage incentive spirometer use and deep breathing, nebs, chest x-ray reviewed Normal sinus rhythm, epicardial pacing wires on standby, monitoring blood pressure, metoprolol 50mg BID, add amlodipine 5mg daily, Advance diet as tolerated, nutritonal supplements, bowel regimen, monitoring BS PT/OT, OOB for all meals, encourage ambulation DVT prophylaxis with SCDs, GI prophylaxis with PPI Disposition: patient and family admitted they are not at one specific place living. Case management following, SNF vs. rehab Continue supportive care ICC following, Patient seen and examined by Dr. Ko. Discussed plan of care with patient, nurse and interdisciplinary team. All questions answered. No signs of hemodynamic instability. repeat H H this afternoon. Continue OOB walking. 10/25/24 POD 4 Patient alert, awake, oriented, reports pain improving. Labs reviewed, HGB 6.4, slightly improved. No tachycardia no signs of hemodynamic instability replace electrolytes as needed On room air Normal sinus rhythm, epicardial pacing wires on standby, monitoring blood pressure, metoprolol 50mg BID, add amlodipine 5mg daily, Tolerating diet, reports bowel movements PT/OT, OOB for all meals, encourage ambulation DVT prophylaxis with SCDs, GI prophylaxis with PPI Disposition: patient and family admitted they are not at one specific place living. Rehab consulted Case management following, will need SNF vs. rehab Continue supportive care Will obtain DVT studies Patient seen and examined by Dr. Ko. Discussed plan of care with patient, nurse and interdisciplinary team. All questions answered. No signs of hemodynamic instability. repeat H H this afternoon. Continue OOB walking. 10/26/24 POD 5 Patient alert, awake, oriented, reports pain improving. Labs reviewed, HGB 6.5, slightly improved-stable No tachycardia no signs of hemodynamic instability, replace electrolytes as needed Breathing comfortable on room air, encourage incentive spirometer use Normal sinus rhythm, epicardial pacing wires on standby-discontinue today, limited echocardiogram monitoring blood pressure, metoprolol 25mg BID, amlodipine 5mg daily, Tolerating cardiac diet, reports bowel movements Strict I's and O's and daily standing scale weight, weight trending down PT/OT, OOB for all meals, encourage ambulation DVT prophylaxis with SCDs, GI prophylaxis with PPI Bilateral extremity Dopplers negative for DVT Disposition: patient and family admitted they are not at one specific place living. Rehab consulted Case management following, will need SNF vs. rehab Continue supportive care Patient seen and examined by Dr. Ko. Discussed plan of care with patient, nurse and interdisciplinary team. All questions answered. 10/27/24 POD 6 Patient alert, awake, oriented, reports pain improving. Labs reviewed, HGB 6.3-stable No tachycardia no signs of hemodynamic instability, replace electrolytes as needed Breathing comfortable on room air, encourage incentive spirometer use Normal sinus rhythm, limited echocardiogram-shows small to moderate pericardial effusion, monitor closely, monitoring blood pressure, metoprolol 25mg BID, amlodipine 5mg daily, Tolerating cardiac diet, reports bowel movements Strict I's and O's and daily standing scale weight, weight trending down PT/OT, OOB for all meals, encourage ambulation DVT prophylaxis with SCDs, GI prophylaxis with PPI Bilateral extremity Dopplers negative for DVT Disposition: patient and family admitted they are not at one specific place living. Rehab consulted Case management following, will need SNF vs. rehab Transfer to [facility] Continue supportive care Patient seen and examined by Dr. Ko. Discussed plan of care with patient, nurse and interdisciplinary team. All questions answered. 10/28/24 POD 7 Patient alert, awake, oriented, reports pain improving. Labs reviewed, HGB 6.9-stable No tachycardia no signs of hemodynamic instability, replace electrolytes as needed Breathing comfortable on room air, encourage incentive spirometer use Normal sinus rhythm, limited echocardiogram-shows small to moderate pericardial effusion, monitor closely, monitoring blood pressure, metoprolol 25mg BID, amlodipine 5mg daily, Tolerating cardiac diet, reports bowel movements Strict I's and O's and daily standing scale weight, weight trending down PT/OT, OOB for all meals, encourage ambulation DVT prophylaxis with SCDs, GI prophylaxis with PPI Bilateral extremity Dopplers negative for DVT Disposition: patient and family admitted they are not at one specific place living. Rehab consulted Case management following, will need SNF pending choice Transfer to [facility] 1 Continue supportive care Patient seen and examined by Dr. Ko. Discussed plan of care with patient, nurse and interdisciplinary team. All questions answered. Consultants: cardiology Code status: full code Plan discussed with: patient, collaborating MD, nurse, interdisc care team at 0928 at 1841 RPT #:[id number] END OF REPORT [facility] 2024-10-28 07:23:00 [facility] ([facility]) Critical Care Progress Note REPORT#:[id number] REPORT STATUS: Signed REPORT INITIALIZATION DATE:10/28/24 TIME: 722 PATIENT: CLEO LONG UNIT #: [id number] ROOM[address] : [address] AGE: 63 SEX: M ATTEND: Shyla Zepeda MD ADM AUTHOR: Rickey Kerr MD REPT SERVICE DT/TIME: 10/28/24 7474 * ALL edits or amendments must be made on the electronic/computer document * Subjective Chief complaint: CAD HPI: Patient is a 63-year-old male with past medical history of hypertension, hyperlipidemia, CHF and coronary artery disease with 7 previous stents. Patient presented with chest pain. His left heart cath on the sixth that showed multivessel coronary artery disease. He underwent CABG x 4 today with CV surgery. He is not the CVICU for postoperative care. His postoperative echo had an EF of 50% on epi of 3. He was also on vasopressin 0.02 and on small dose of norepinephrine. He received 1 L of crystalloid intraoperatively and 250 of Cell Saver. He also received 2 units of platelets and 2 FFP. Currently sinus rhythm in the 60s and quickly titrating down on drips. Sedation is off. His paralytic was reversed. He was started on spontaneous breathing trial. Postop labs, EKG, chest x-ray pending. He is noted to have increased output out of his mediastinal drain. He put out 130 of sanguinous output in 1 hour. Tag sent and will give another FFP and platelet. 10/22: Patient seen and evaluated bedside. No acute events overnight. Is on room air. Started on nitro for high blood pressure this morning. Complaining of pain at chest tube site 10/23: Patient seen and evaluated bedside. No acute events overnight. Remains on nitro infusion for hypertension. Is on 3 L nasal cannula. Pain is better controlled. Will increase beta-fletcher today and start amlodipine. 10/24 Seen evaluated this morning. Patient's been doing fairly well. Of any drips. On room air. Pain is well-controlled. H H trended downwards with a hemoglobin of 6.3 this morning from 7.2. No signs of active bleeding. No tachycardia blood pressure stable's. Discussed with cardiac surgery at this time we will be watching only unless there is any changes in hemodynamics. Patient feels okay ambulating. Did have a large liquid bowel movement. Hemoccult has been sent. No fevers. 10/25 Seen evaluated this morning doing fairly well no issues room air H H remained stable. Tolerating well p.o. intake. Will do gentle diuresis. Hemoccult negative. Disposition planning started. 10/26 Seen evaluated this morning no significant issues overnight. His beta-fletcher was cut down due to bradycardia yesterday. Awake and alert on room air. Discussion held today may need some rehab awaiting disposition planning otherwise H H remained stable. 10/27 Seen evaluated this morning no significant issue overnight heart rate has been better with the decreased dose of beta-fletcher. Good urine output still on room air ambulating tolerating well p.o. still awaiting discharge planning. 10/28 No significant issues awaiting placement had transfer orders yesterday still awaiting for bed. Objective General VS/I O Last Documented: Result Date Time Pulse Ox 96 10/28 0759 FiO2 21 10/28 0759 O2 Delivery Room air 10/28 075 Pulse 68 10/28 0455 Resp 22 10/28 0455 B/P 188/82 10/28 0430 B/P Mean 118 10/28 0430 Temp 98.2 10/27 2000 O2 Flow Rate 3 10/23 1121 24 hour I O ending at 0700: 10/28 0700 10/27 1900 Intake Total 540 1200 Output Total 800 1000 Balance -260 200 Intake, Oral 540 1200 Number 1 Bowel Movements Output, Urine 800 1000 Patient 73.2 kg Weight Weight Standing scale Measurement Method PATIENT WEIGHT: Weight (lb): 161 Weight (oz): 6.05 Weight (kg): 73.200 Medications: Active Meds + DC'd Last 24 Hrs Amiodarone HCl (CORDARONE) 200 MG BID PO Spironolactone (ALDACTONE) 12.5 MG DAILY PO Metoprolol Tartrate (LOPRESSOR) 25 MG Q12HR PO Melatonin (Melatonin) 6 MG BEDTIME PRN PRN PO Ipratropium [place] (ATROVENT) 500 MCG RTQ2H PRN PRN INH Cyanocobalamin (Vitamin B-12 500 mcg tab) 500 MCG DAILY PO Ferrous Sulfate (FERROUS SULFATE) 325 MG DAILY PO Bisacodyl (DULCOLAX) 10 MG ONCE PRN RECTAL Hydralazine HCl (APRESOLINE) 50 MG Q8H PRN PRN PO Amlodipine Besylate (NORVASC) 5 MG DAILY PO (DC) Clopidogrel Bisulfate (Plavix) 75 MG DAILY PO Polyethylene Glycol (MIRALAX) 17 GM DAILY PO Pantoprazole (PROTONIX) 40 MG DAILY@0600 PO Atorvastatin Calcium (LIPITOR) 40 MG 2100 PO Docusate Sodium (COLACE) 100 MG BID PO Sennosides (Senna Lax 8.6 MG TABLET) 17.2 MG BEDTIME PO Aspirin (ASPIRIN) 81 MG DAILY PO Amiodarone HCl (CORDARONE) 200 MG TID PO (DC) Acetaminophen (TYLENOL) 650 MG Q4H PRN PRN PO Acetaminophen (TYLENOL) 650 MG Q4H PRN PRN RECTAL Calcium Chloride (CALCIUM CHLORIDE) 1 GM ASDIR PRN IV (DC) Dextrose/Water (DEXTROSE 10% IN WATER) 125 ML ASDIR PRN IV (CKD) Dextrose/Water (DEXTROSE 10% IN WATER) 250 ML ASDIR PRN IV (CKD) Epinephrine (ADRENALIN CHLORIDE) 4 MG ASDIR IV (DC) Dextrose/Water (DEXTROSE 5% WATER) 246 ML Glucagon (GLUCAGON) 1 MG ASDIR PRN IM Magnesium Sulfate (MAGNESIUM SULFATE 4GM/SWFI 100ML) 100 ML ASDIR PRN IV Magnesium Sulfate (MAGNESIUM SULFATE 2GM/SWFI 50ML) 50 ML ASDIR PRN IV Magnesium Sulfate/Dextrose (MAGNESIUM SULFATE 1GM/D5W 100ML) 100 ML ASDIR PRN IV Nitroglycerin/Dextrose (NITROGLYCERIN 50,000MCG/D5W 250ML) 250 ML ASDIR IV (DC) Norepinephrine/Dextrose (Norepinephrine 8 MG/D5W 250 mL) 250 ML TITRATE IV (DC) Ondansetron HCl (ZOFRAN) 4 MG Q6H PRN PRN IV Potassium Chloride (KCL 20MEQ/SWFI 100ML) 100 ML ASDIR PRN IV (DC) Sodium Bicarbonate (SODIUM BICARBONATE) 50 MEQ ASDIR PRN IV (DC) Sodium Chloride (SODIUM CHLORIDE 0.9%) 250 ML Q24H IV Physical Exam Head/eyes: EOMI, PERRLA ENT: moist mucosal membranes Neck: non-tender, no JVD Cardiovascular: normal capillary refill, normal heart sounds, regular rate and rhythm Respiratory: aerating well, no distress Abdomen: soft, non-tender, no guarding Extremities: moves all, normal capillary refill 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: alert, oriented X 3, CNII-XII intact, normal speech, no motor deficits, no sensory deficits Results Findings/data: Laboratory Tests 10/28 0132 Chemistry Sodium (134 - 147 mEq/L) 142 Potassium (3.4 - 5.0 mEq/L) 4.0 Chloride (100 - 108 mEq/L) 111 H Carbon Dioxide (21 - 33 mEq/l) 25 Anion Gap (0 - 20) 10 BUN (7 - 25 mg/dL) 17 Creatinine (0.6 - 1.3 mg/dL) 0.8 Glomerular Filtr Rate (80 - 90) 100.1 H Glucose (77 - 141 mg/dL) 102 Calcium (8.0 - 10.5 mg/dL) 8.4 Magnesium (1.6 - 2.6 mg/dL) 1.82 Laboratory Tests 10/28 0132 Hematology WBC (4.5 - 11.0 x10 3/uL) 13.0 H RBC (4.00 - 5.60 x10 6/uL) 2.38 L Hgb (12.5 - 16.9 g/dL) 6.9 L Hct (37.5 - 50.7 %) 21.9 L MCV (81.0 - 99.0 fL) 92.0 MCH (27.0 - 33.0 pg) 29.0 MCHC (33.0 - 37.0 g/dL) 31.5 L RDW (11.5 - 14.5 %) 14.8 H Plt Count (150 - 400 x10 3/uL) 465 H MPV (7.0 - 9.0 fL) 8.9 Neut % (Auto) (56.0 - 77.0 %) 66.1 Lymph % (Auto) (14.0 - 32.0 %) 18.3 [place] % (Auto) (4.8 - 9.0 %) 10.0 H Eos % (Auto) (0.3 - 3.7 %) 3.9 H Baso % (Auto) (0.0 - 2.0 %) 0.4 Neut # (Auto) (2.0 - 7.6 x10 3/uL) 8.56 H Lymph # (Auto) (1.0 - 3.8 x10 3/uL) 2.37 [place] # (Auto) (0.1 - 0.8 x10 3/uL) 1.29 H Eos # (Auto) (0.0 - 0.2 x10 3/uL) 0.51 H Baso # (Auto) (0.0 - 0.2 x10 3/uL) 0.05 Abs Immat Gran (auto) (0.00 - 0.03 x10 3/uL) 0.17 H Immature Gran % (0.0 - 2.0 %) 1.3 Nucleated RBC % (0 - 0 %) 0.3 H Nucleated RBCs # (Man) (0.0 - 0.1 x10 3/uL) 0.04 Laboratory Tests 10/28/24 0132: [Embedded Image Not Available] Radiology data Recent Impressions: RADIOLOGY - XR CHEST 1 V 10/28 0521 Report Impression - Status: SIGNED Entered: 10/28/2024 0807 IMPRESSION: Bibasilar opacities more prominent on the left, appear improved from the prior study. Impression By: Adry Centeno M.D. Diagnosis, Assessment Plan Problem list/A P: 1. Chest pain 2. CAD (coronary artery disease) 3. S/P CABG x 4 4. Postoperative anemia Free text A P: Patient is a 63-year-old male with multivessel coronary artery disease that status post CABG x 4 Coronary disease NSTEMI CABG x 4 Bilateral EVH ALAA PP History of hypertension History of hyperlipidemia post op anemia 10/28 No issues overnight disposition planning. Plan Neuro: pain well-controlled Respiratory: On room air continue pulmonary hygiene, incentive spirometry, Cardiovascular: Continue dose beta-fletcher, amlodipine , PO amiodarone Renal: strict I/Os, GI: PPI, bowel regimen ID: trend WBC, no fever Hem: monitor Hgb, transfuse as needed. ASA/plavix Endo: Sliding scale insulin Misc: PTOT consult, DVT and GI ppx with SCD and PPI Awaiting disposition planning Consultants: cardiology Critical care time: Minutes: 31 at 0811 [facility] #:[id number] END OF REPORT [facility] 2024-10-28 07:02:00 [facility] ([facility] Cardiology Progress Note REPORT#:[id number] REPORT STATUS: Signed REPORT INITIALIZATION DATE:10/28/24 TIME: 07 PATIENT: CLEO LONG UNIT #: [id number] ROOM/BED: [place] [id number] : 62 AGE: 63 SEX: M ATTEND: Shyla Zepeda MD ADM AUTHOR: Alec Norris MD REPT SERVICE DT/TIME: 10/28/24 0702 * ALL edits or amendments must be made on the electronic/computer document * Objective General VS/I O: 24 hour I O ending at 0700: 10/28 0700 10/27 1900 Intake Total 540 1200 Output Total 800 1000 Balance -260 200 Intake, Oral 540 1200 Number 1 Bowel Movements Output, Urine 800 1000 Patient 73.2 kg Weight Weight Standing scale Measurement Method Vital Signs: Date Time Temp Pulse Resp B/P B/P Pulse O2 O2 Flow FiO2 Mean Ox Delivery Rate 10/28 0455 68 22 10/28 0430 65 16 188/82 118 10/28 0400 67 29 141/72 100 97 10/28 0331 66 26 144/72 101 96 10/28 0300 64 20 155/70 100 97 10/28 0231 68 29 148/116 128 96 10/28 0200 65 34 10/28 0130 62 29 150/82 110 97 10/28 0101 66 24 147/111 123 96 10/28 0100 62 36 97 10/28 0030 62 29 163/75 108 97 10/28 0000 62 25 147/73 102 97 10/27 2330 63 29 157/76 109 97 10/27 2300 60 21 151/73 99 97 10/27 2231 59 19 154/67 96 97 10/27 2206 59 26 133/62 89 97 10/27 2200 60 27 96 10/27 2130 58 20 168/77 110 98 10/27 2101 64 14 162/72 104 98 10/27 2100 64 13 98 10/27 2030 69 21 136/63 91 96 10/27 2015 96 Room air 21 10/27 2005 72 21 133/63 91 96 10/27 2000 36.8 10/27 2000 72 22 96 10/27 1930 72 18 167/70 101 10/27 1901 77 22 153/65 94 10/27 1900 76 33 10/27 1731 71 32 122/70 89 97 10/27 1700 67 26 159/71 102 98 10/27 1600 65 29 161/85 117 98 10/27 1501 63 117/79 91 98 10/27 1431 66 129/90 102 98 10/27 1401 63 145/81 107 99 10/27 1330 60 27 128/60 87 98 10/27 1300 58 19 124/61 87 99 10/27 1230 57 29 114/59 82 96 10/27 1200 61 32 123/73 92 95 10/27 1138 64 31 130/61 88 95 10/27 1130 96 Room air 21 10/27 1101 58 12 146/63 91 99 10/27 1030 59 24 121/60 87 97 10/27 1001 59 25 117/57 82 97 10/27 0942 71 22 158/68 98 99 10/27 0931 66 25 170/77 111 99 10/27 0900 66 24 139/74 100 95 10/27 0830 66 24 176/82 118 99 10/27 0804 63 26 158/75 108 98 10/27 0800 36.6 10/27 0731 68 29 149/77 106 97 10/27 0723 97 Room air 21 10/27 0711 64 23 98 PATIENT WEIGHT: Weight (lb): 161 Weight (oz): 6.05 Weight (kg): 73.200 Medications: Active Meds + DC'd Last 24 Hrs Spironolactone (ALDACTONE) 12.5 MG DAILY PO Metoprolol Tartrate (LOPRESSOR) 25 MG Q12HR PO Melatonin (Melatonin) 6 MG BEDTIME PRN PRN PO Ipratropium [place] (ATROVENT) 500 MCG RTQ2H PRN PRN INH Cyanocobalamin (Vitamin B-12 500 mcg tab) 500 MCG DAILY PO Ferrous Sulfate (FERROUS SULFATE) 325 MG DAILY PO Bisacodyl (DULCOLAX) 10 MG ONCE PRN RECTAL Hydralazine HCl (APRESOLINE) 50 MG Q8H PRN PRN PO Amlodipine Besylate (NORVASC) 5 MG DAILY PO (DC) Clopidogrel Bisulfate (Plavix) 75 MG DAILY PO Polyethylene Glycol (MIRALAX) 17 GM DAILY PO Pantoprazole (PROTONIX) 40 MG DAILY@0600 PO Atorvastatin Calcium (LIPITOR) 40 MG 2100 PO Docusate Sodium (COLACE) 100 MG BID PO Sennosides (Senna Lax 8.6 MG TABLET) 17.2 MG BEDTIME PO Aspirin (ASPIRIN) 81 MG DAILY PO Amiodarone HCl (CORDARONE) 200 MG TID PO Acetaminophen (TYLENOL) 650 MG Q4H PRN PRN PO Acetaminophen (TYLENOL) 650 MG Q4H PRN PRN RECTAL Calcium Chloride (CALCIUM CHLORIDE) 1 GM ASDIR PRN IV (DC) Dextrose/Water (DEXTROSE 10% IN WATER) 125 ML ASDIR PRN IV (CKD) Dextrose/Water (DEXTROSE 10% IN WATER) 250 ML ASDIR PRN IV (CKD) Epinephrine (ADRENALIN CHLORIDE) 4 MG ASDIR IV (DC) Dextrose/Water (DEXTROSE 5% WATER) 246 ML Glucagon (GLUCAGON) 1 MG ASDIR PRN IM Magnesium Sulfate (MAGNESIUM SULFATE 4GM/SWFI 100ML) 100 ML ASDIR PRN IV Magnesium Sulfate (MAGNESIUM SULFATE 2GM/SWFI 50ML) 50 ML ASDIR PRN IV Magnesium Sulfate/Dextrose (MAGNESIUM SULFATE 1GM/D5W 100ML) 100 ML ASDIR PRN IV Nitroglycerin/Dextrose (NITROGLYCERIN 50,000MCG/D5W 250ML) 250 ML ASDIR IV (DC) Norepinephrine/Dextrose (Norepinephrine 8 MG/D5W 250 mL) 250 ML TITRATE IV (DC) Ondansetron HCl (ZOFRAN) 4 MG Q6H PRN PRN IV Potassium Chloride (KCL 20MEQ/SWFI 100ML) 100 ML ASDIR PRN IV (DC) Sodium Bicarbonate (SODIUM BICARBONATE) 50 MEQ ASDIR PRN IV (DC) Sodium Chloride (SODIUM CHLORIDE 0.9%) 250 ML Q24H IV Physical Exam General appearance: alert, awake Cardiovascular: CV assessment: regular rate and rhythm, BP pulses = bilaterally, normal heart sounds, pedal pulses present, no ectopy, no heave, no murmur Respiratory: clear to auscultation Results Findings/Data: Laboratory Tests 10/28 132 Chemistry Sodium (134 - 147 mEq/L) 142 Potassium (3.4 - 5.0 mEq/L) 4.0 Chloride (100 - 108 mEq/L) 111 H Carbon Dioxide (21 - 33 mEq/l) 25 Anion Gap (0 - 20) 10 BUN (7 - 25 mg/dL) 17 Creatinine (0.6 - 1.3 mg/dL) 0.8 Glomerular Filtr Rate (80 - 90) 100.1 H Glucose (77 - 141 mg/dL) 102 Calcium (8.0 - 10.5 mg/dL) 8.4 Magnesium (1.6 - 2.6 mg/dL) 1.82 Laboratory Tests 10/28 132 Hematology WBC (4.5 - 11.0 x10 3/uL) 13.0 H RBC (4.00 - 5.60 x10 6/uL) 2.38 L Hgb (12.5 - 16.9 g/dL) 6.9 L Hct (37.5 - 50.7 %) 21.9 L MCV (81.0 - 99.0 fL) 92.0 MCH (27.0 - 33.0 pg) 29.0 MCHC (33.0 - 37.0 g/dL) 31.5 L RDW (11.5 - 14.5 %) 14.8 H Plt Count (150 - 400 x10 3/uL) 465 H MPV (7.0 - 9.0 fL) 8.9 Neut % (Auto) (56.0 - 77.0 %) 66.1 Lymph % (Auto) (14.0 - 32.0 %) 18.3 [place] % (Auto) (4.8 - 9.0 %) 10.0 H Eos % (Auto) (0.3 - 3.7 %) 3.9 H Baso % (Auto) (0.0 - 2.0 %) 0.4 Neut # (Auto) (2.0 - 7.6 x10 3/uL) 8.56 H Lymph # (Auto) (1.0 - 3.8 x10 3/uL) 2.37 [place] # (Auto) (0.1 - 0.8 x10 3/uL) 1.29 H Eos # (Auto) (0.0 - 0.2 x10 3/uL) 0.51 H Baso # (Auto) (0.0 - 0.2 x10 3/uL) 0.05 Abs Immat Gran (auto) (0.00 - 0.03 x10 3/uL) 0.17 H Immature Gran % (0.0 - 2.0 %) 1.3 Nucleated RBC % (0 - 0 %) 0.3 H Nucleated RBCs # (Man) (0.0 - 0.1 x10 3/uL) 0.04 Laboratory Tests 10/28 0132 Chemistry Magnesium (1.6 - 2.6 mg/dL) 1.82 Diagnosis, Assessment Plan Free Text DxA P Notes Free Text DxA P Notes: 1. CAD: Two-vessel, plan for CABG sometime next week. 2. Hyperlipidemia: Continue statin 3. Hypertension: Continue carvedilol s/p cabg today extubated chest tubes in place stable hemodynamics no symptoms clinically better 1. CAD: Two-vessel, plan for CABG sometime next week. 2. Hyperlipidemia: Continue statin 3. Hypertension: Continue carvedilol s/p cabg today extubated chest tubes in place stable hemodynamics no symptoms clinically better Patient alert, awake, oriented, reports pain improving. Labs reviewed, HGB 6.5, slightly improved-stable No tachycardia no signs of hemodynamic instability, replace electrolytes as needed Breathing comfortable on room air, encourage incentive spirometer use Normal sinus rhythm, epicardial pacing wires on standby-discontinue today, limited echocardiogram monitoring blood pressure, metoprolol 25mg BID, amlodipine 5mg daily, Tolerating cardiac diet, reports bowel movements Strict I's and O's and daily standing scale weight, weight trending down PT/OT, OOB for all meals, encourage ambulation DVT prophylaxis with SCDs, GI prophylaxis with PPI Bilateral extremity Dopplers negative for DVT Disposition: patient and family admitted they are not at one specific place living. Rehab consulted pt ot clinically better at 1901 RPT #:[id number] END OF REPORT [facility] 2024-10-27 16:30:00 [facility] ([facility]) Rehab Progress Note REPORT#:[id number] REPORT STATUS: Signed REPORT INITIALIZATION DATE:10/27/24 TIME: 163 PATIENT: CLEO LONG UNIT #: [id number] ROOM/BED: [place] [id number] : 61 AGE: 63 SEX: M ATTEND: Shyla Zepeda MD ADM AUTHOR: Shannon Bell NP REPT SERVICE DT/TIME: 10/27/24 1630 * ALL edits or amendments must be made on the electronic/computer document * Subjective Chief complaint: rehab follow-up Pt seen earlier in the day-resting comfortably in the bed after working with PT family at bedside Pain controlled /denied sob Objective General VS: Vital Signs: Date Time Temp Pulse Resp B/P B/P Pulse O2 O2 Flow FiO2 Mean Ox Delivery Rate 10/27 1230 57 29 114/59 82 96 10/27 1200 61 32 123/73 92 95 10/27 1138 64 31 130/61 88 95 10/27 1130 96 Room air 21 10/27 1101 58 12 146/63 91 99 10/27 1030 59 24 121/60 87 97 10/27 1001 59 25 117/57 82 97 10/27 0942 71 22 158/68 98 99 10/27 0931 66 25 170/77 111 99 10/27 0900 66 24 139/74 100 95 10/27 0830 66 24 176/82 118 99 10/27 0804 63 26 158/75 108 98 10/27 0800 97.8 10/27 0731 68 29 149/77 106 97 10/27 0723 97 Room air 21 10/27 0711 64 23 98 10/27 0700 65 24 162/80 115 98 10/27 0630 65 19 147/80 106 100 10/27 0600 67 20 162/77 110 98 10/27 0534 69 19 153/72 104 96 10/27 0500 66 27 149/84 111 96 10/27 0430 65 18 172/81 116 99 10/27 0400 65 20 155/76 109 98 10/27 0335 64 134/72 98 97 10/27 0300 64 15 134/75 98 10/27 0230 65 23 159/76 109 96 10/27 0200 63 22 138/78 102 98 10/27 0130 64 25 122/77 96 97 10/27 0100 64 28 130/74 97 95 10/27 0030 61 26 148/66 95 97 10/27 0001 64 25 128/70 93 98 10/27 0000 63 28 97 10/26 2331 66 24 98 10/26 2300 68 144/75 101 99 10/26 2230 67 148/67 97 97 10/26 2212 69 29 98 10/26 2201 72 28 157/70 101 98 10/26 2200 71 30 99 10/26 2130 72 24 143/77 103 100 10/26 2100 72 25 124/62 83 97 10/26 2040 73 97 10/26 2031 73 30 98 10/26 2004 71 26 165/72 104 98 10/26 2000 98.4 10/26 2000 73 25 96 10/26 1942 73 29 167/76 113 99 10/26 1941 73 40 100 10/26 1930 74 31 100 12/16 1916 99 Room air 10/26 1901 75 33 160/76 109 99 10/26 1900 75 27 99 10/26 1831 74 21 108/74 87 100 10/26 1800 72 29 121/58 83 98 10/26 1701 73 28 155/72 103 98 PATIENT WEIGHT: Weight (lb): 162 Weight (oz): 4.16 Weight (kg): 73.600 Medications: Active Meds + DC'd Last 24 Hrs Spironolactone (ALDACTONE) 12.5 MG DAILY PO Metoprolol Tartrate (LOPRESSOR) 25 MG Q12HR PO Melatonin (Melatonin) 6 MG BEDTIME PRN PRN PO Ipratropium [place] (ATROVENT) 500 MCG RTQ2H PRN PRN INH Cyanocobalamin (Vitamin B-12 500 mcg tab) 500 MCG DAILY PO Ferrous Sulfate (FERROUS SULFATE) 325 MG DAILY PO Bisacodyl (DULCOLAX) 10 MG ONCE PRN RECTAL Hydralazine HCl (APRESOLINE) 50 MG Q8H PRN PRN PO Amlodipine Besylate (NORVASC) 5 MG DAILY PO (DC) Clopidogrel Bisulfate (Plavix) 75 MG DAILY PO Polyethylene Glycol (MIRALAX) 17 GM DAILY PO Pantoprazole (PROTONIX) 40 MG DAILY@0600 PO Atorvastatin Calcium (LIPITOR) 40 MG 2100 PO Docusate Sodium (COLACE) 100 MG BID PO Sennosides (Senna Lax 8.6 MG TABLET) 17.2 MG BEDTIME PO Aspirin (ASPIRIN) 81 MG DAILY PO Amiodarone HCl (CORDARONE) 200 MG TID PO Acetaminophen (TYLENOL) 650 MG Q4H PRN PRN PO Acetaminophen (TYLENOL) 650 MG Q4H PRN PRN RECTAL Calcium Chloride (CALCIUM CHLORIDE) 1 GM ASDIR PRN IV (DC) Dextrose/Water (DEXTROSE 10% IN WATER) 125 ML ASDIR PRN IV (CKD) Dextrose/Water (DEXTROSE 10% IN WATER) 250 ML ASDIR PRN IV (CKD) Epinephrine (ADRENALIN CHLORIDE) 4 MG ASDIR IV (DC) Dextrose/Water (DEXTROSE 5% WATER) 246 ML Glucagon (GLUCAGON) 1 MG ASDIR PRN IM Insulin Human Regular (MYXREDLIN 100 UNITS/NS 100ML) 100 ML ASDIR IV (DC ) Magnesium Sulfate (MAGNESIUM SULFATE 4GM/SWFI 100ML) 100 ML ASDIR PRN IV Magnesium Sulfate (MAGNESIUM SULFATE 2GM/SWFI 50ML) 50 ML ASDIR PRN IV Magnesium Sulfate/Dextrose (MAGNESIUM SULFATE 1GM/D5W 100ML) 100 ML ASDIR PRN IV Nitroglycerin/Dextrose (NITROGLYCERIN 50,000MCG/D5W 250ML) 250 ML ASDIR IV (DC) Norepinephrine/Dextrose (Norepinephrine 8 MG/D5W 250 mL) 250 ML TITRATE IV (DC) Ondansetron HCl (ZOFRAN) 4 MG Q6H PRN PRN IV Potassium Chloride (KCL 20MEQ/SWFI 100ML) 100 ML ASDIR PRN IV (DC) Sodium Bicarbonate (SODIUM BICARBONATE) 50 MEQ ASDIR PRN IV (DC) Sodium Chloride (SODIUM CHLORIDE 0.9%) 250 ML Q24H IV Physical Exam General appearance: alert, awake Psych: alert, oriented x 3 HEENT: anicteric, mucosal membranes moist Neck: supple, no JVD Cardiovascular: regular rate rhythm, no murmur Respiratory: diminished breath sounds, aerating well, clear bilaterally Abdomen: bowel sounds present, non-distended, soft, non-tender Skin: dry, intact, no rash, surgical incision D/I Musculoskeletal - general: Musculoskeletal - general: swelling (BLE) 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: alert, oriented X 3 Results Findings/Data: Laboratory Tests: 10/27 0225 Chemistry Sodium (134 - 147 mEq/L) 142 Potassium (3.4 - 5.0 mEq/L) 4.2 Chloride (100 - 108 mEq/L) 109 H Carbon Dioxide (21 - 33 mEq/l) 25 Anion Gap (0 - 20) 12 BUN (7 - 25 mg/dL) 18 Creatinine (0.6 - 1.3 mg/dL) 0.8 Glomerular Filtr Rate (80 - 90) 100.1 H Glucose (77 - 141 mg/dL) 108 Calcium (8.0 - 10.5 mg/dL) 8.0 Magnesium (1.6 - 2.6 mg/dL) 2.06 Hematology WBC (4.5 - 11.0 x10 3/uL) 11.2 H RBC (4.00 - 5.60 x10 6/uL) 2.23 L Hgb (12.5 - 16.9 g/dL) 6.3 *L Hct (37.5 - 50.7 %) 20.4 L MCV (81.0 - 99.0 fL) 91.5 MCH (27.0 - 33.0 pg) 28.3 MCHC (33.0 - 37.0 g/dL) 30.9 L RDW (11.5 - 14.5 %) 14.6 H Plt Count (150 - 400 x10 3/uL) 373 MPV (7.0 - 9.0 fL) 9.1 H Neut % (Auto) (56.0 - 77.0 %) 64.2 Lymph % (Auto) (14.0 - 32.0 %) 19.4 [place] % (Auto) (4.8 - 9.0 %) 10.5 H Eos % (Auto) (0.3 - 3.7 %) 3.9 H Baso % (Auto) (0.0 - 2.0 %) 0.3 Neut # (Auto) (2.0 - 7.6 x10 3/uL) 7.21 Lymph # (Auto) (1.0 - 3.8 x10 3/uL) 2.18 [place] # (Auto) (0.1 - 0.8 x10 3/uL) 1.18 H Eos # (Auto) (0.0 - 0.2 x10 3/uL) 0.44 H Baso # (Auto) (0.0 - 0.2 x10 3/uL) 0.03 Abs Immat Gran (auto) (0.00 - 0.03 x10 3/uL) 0.19 H Immature Gran % (0.0 - 2.0 %) 1.7 Nucleated RBC % (0 - 0 %) 0.6 H Nucleated RBCs # (Man) (0.0 - 0.1 x10 3/uL) 0.07 Diagnosis, Assessment Plan Free Text A P: Cardiac debility Multivessel CAD S/p CABG x 4 Generalized weakness Impaired ADLs, mobility, gait Postoperative anemia History of CHF HTN HLD Plan: Continue PT/OT Out of bed to chair Work on ADLs, strength, bed mobility, transfers, gait Sternal precaution Increase endurance Fall precautions Monitor PO intake and nutrition Strict decubitus precautions Cont. current medications Monitor labs Advance therapies as tolerated+ ClOF: Transfers: SPV to Felipe Pt now ambulating 500ft SPV WC handles Pt is to high level for IPR If there are still medical issues to be monitored consider SNF setting. Rehab attestation: Face to face exam completed. at 1636 RPT #:[id number] END OF REPORT [facility] 2024-10-27 09:51:00 [facility] ([facility]) Heart Failure Progress Note REPORT#:[id number] REPORT STATUS: Signed REPORT INITIALIZATION DATE:10/27/24 TIME: 950 PATIENT: CLEO LONG UNIT #: [id number] ROOM/BED: [place] [id number] : 61 AGE: 63 SEX: M ATTEND: Shyla Zepeda MD ADM AUTHOR: Doni Mcarthur [employer] REPT SERVICE DT/TIME: 10/27/24950 * ALL edits or amendments must be made on the electronic/computer document * Doni Mcarthur 10/27/24 0951: Subjective HPI: Currently, He is sitting in a chair, awake and alert, n/c. Dr Neal explained HFrEF and GDMT Objective General VS/I O: Vital Signs Vital Signs Date Time Temp Pulse Resp B/P B/P Pulse O2 O2 Flow FiO2 Mean Ox Delivery Rate 10/27 0900 66 24 139/74 100 95 10/27 0830 66 24 176/82 118 99 10/27 0804 63 26 158/75 108 98 10/27 0731 68 29 149/77 106 97 10/27 0723 97 Room air 21 10/27 0711 64 23 98 10/27 0700 65 24 162/80 115 98 10/27 0630 65 19 147/80 106 100 10/27 0600 67 20 162/77 110 98 10/27 0534 69 19 153/72 104 96 10/27 0500 66 27 149/84 111 96 10/27 0430 65 18 172/81 116 99 10/27 0400 65 20 155/76 109 98 10/27 0335 64 134/72 98 97 10/27 0300 64 15 134/75 98 10/27 0230 65 23 159/76 109 96 10/27 0200 63 22 138/78 102 98 10/27 0130 64 25 122/77 96 97 12/17 0100 64 28 130/74 97 95 12/17 0030 61 26 148/66 95 97 12/17 0001 64 25 128/70 93 98 12/17 0000 63 28 97 12/16 2331 66 24 98 12/16 2300 68 144/75 101 99 12/16 2230 67 148/67 97 97 12/16 2212 69 29 98 12/16 2201 72 28 157/70 101 98 12/16 2200 71 30 99 12/16 2130 72 24 143/77 103 100 12/16 2100 72 25 124/62 83 97 12/16 2040 73 97 12/16 2031 73 30 98 12/16 2004 71 26 165/72 104 98 12/16 1999 98.4 12/16 1999 73 25 96 12/16 1942 73 29 167/76 113 99 12/16 1941 73 40 100 12/16 1930 74 31 100 12/16 1916 99 Room air 12/16 1901 75 33 160/76 109 99 12/16 1900 75 27 99 12/16 1831 74 21 108/74 87 100 12/16 1800 72 29 121/58 83 98 12/16 1701 73 28 155/72 103 98 12/16 1627 76 30 151/74 106 98 12/16 1500 67 23 98 12/16 1400 67 26 100 12/16 1304 67 153/67 97 100 12/16 1200 62 26 126/58 83 98 12/16 1112 63 22 125/59 85 98 12/16 1000 63 22 144/65 93 98 12/16 0900 59 118/65 87 97 12/16 0800 98.4 65 12/16 0800 68 165/79 111 98 12/16 0700 67 27 150/81 110 99 12/16 0623 67 17 99 12/16 0600 69 28 139/64 92 98 12/16 0531 71 28 151/72 104 98 12/16 0500 71 152/72 98 12/16 0430 69 25 126/64 90 97 12/16 0401 68 28 151/72 104 98 12/16 0400 68 97 12/16 0331 68 24 137/66 93 96 12/16 0326 95 Room air 21 12/16 0301 67 23 157/65 94 93 12/16 0300 67 24 94 12/16 0251 66 26 94 12/16 0230 65 23 126/59 85 95 12/16 0201 68 32 112/58 80 98 12/16 0200 68 36 96 12/16 0130 69 28 129/66 91 95 12/16 0100 69 35 128/89 100 96 12/16 0031 64 28 115/60 81 96 12/16 0028 64 29 96 12/16 0000 65 28 94 /15 2331 61 24 119/76 92 93 /15 2300 66 28 103/55 76 93 /15 2230 71 27 125/58 83 95 /15 2201 73 124/62 87 92 12/15 2200 74 92 /15 2130 69 22 118/58 84 95 / 2100 71 26 113/56 80 96 15 8 94 Room air 21 10/25 2030 70 22 145/64 92 96 10/25 2000 98.6 10/25 2000 70 25 126/60 87 97 /15 1946 72 29 97 /15 1931 72 35 113/60 82 95 /15 1900 70 26 160/73 105 100 /15 1835 70 38 142/67 97 93 /15 1811 67 29 91 12/15 1800 64 22 153/67 97 98 /15 1731 63 42 110/56 81 98 /15 1700 65 26 128/64 89 98 /15 1630 63 26 138/65 94 97 /15 1626 63 24 97 12/15 1600 62 14 140/73 100 98 /15 1530 60 12 143/64 92 98 /15 1527 59 21 98 12/15 1500 59 15 133/58 83 97 /15 1435 63 22 134/63 91 96 /15 1416 60 22 144/65 94 98 /15 1400 59 22 96 12/15 1330 57 27 114/60 80 96 /15 1300 56 21 119/57 82 99 /15 1200 51 20 99/56 71 99 /15 1136 50 20 100 12/15 1130 50 20 125/58 83 100 24 hour I O ending at 0700: 10/27 0700 10/26 1900 Intake Total 820.00 550 Output Total 875 825 Balance -55.00 -275 Intake, IV 100.00 Intake, Oral 720 450 Intake, Oral 100 Supplement Number 0 1 Bowel Movements Number Voids 4 Output, Stool 0 Output, Urine 875 825 Patient 162 lb Weight Weight Standing scale Measurement Method PATIENT WEIGHT: Weight (lb): 162 Weight (oz): 4.16 Weight (kg): 73.600 Medications: Active Meds + DC'd Last 24 Hrs Spironolactone (ALDACTONE) 12.5 MG DAILY PO Metoprolol Tartrate (LOPRESSOR) 25 MG Q12HR PO Melatonin (Melatonin) 6 MG BEDTIME PRN PRN PO Ipratropium [place] (ATROVENT) 500 MCG RTQ2H PRN PRN INH Cyanocobalamin (Vitamin B-12 500 mcg tab) 500 MCG DAILY PO Ferrous Sulfate (FERROUS SULFATE) 325 MG DAILY PO Bisacodyl (DULCOLAX) 10 MG ONCE PRN RECTAL Hydralazine HCl (APRESOLINE) 50 MG Q8H PRN PRN PO Amlodipine Besylate (NORVASC) 5 MG DAILY PO (DC) Clopidogrel Bisulfate (Plavix) 75 MG DAILY PO Polyethylene Glycol (MIRALAX) 17 GM DAILY PO Pantoprazole (PROTONIX) 40 MG DAILY@0600 PO Atorvastatin Calcium (LIPITOR) 40 MG 2100 PO Docusate Sodium (COLACE) 100 MG BID PO Sennosides (Senna Lax 8.6 MG TABLET) 17.2 MG BEDTIME PO Aspirin (ASPIRIN) 81 MG DAILY PO Amiodarone HCl (CORDARONE) 200 MG TID PO Acetaminophen (TYLENOL) 650 MG Q4H PRN PRN PO Acetaminophen (TYLENOL) 650 MG Q4H PRN PRN RECTAL Calcium Chloride (CALCIUM CHLORIDE) 1 GM ASDIR PRN IV (DC) Dextrose/Water (DEXTROSE 10% IN WATER) 125 ML ASDIR PRN IV (CKD) Dextrose/Water (DEXTROSE 10% IN WATER) 250 ML ASDIR PRN IV (CKD) Epinephrine (ADRENALIN CHLORIDE) 4 MG ASDIR IV (DC) Dextrose/Water (DEXTROSE 5% WATER) 246 ML Glucagon (GLUCAGON) 1 MG ASDIR PRN IM Insulin Human Regular (MYXREDLIN 100 UNITS/NS 100ML) 100 ML ASDIR IV (DC ) Magnesium Sulfate (MAGNESIUM SULFATE 4GM/SWFI 100ML) 100 ML ASDIR PRN IV Magnesium Sulfate (MAGNESIUM SULFATE 2GM/SWFI 50ML) 50 ML ASDIR PRN IV Magnesium Sulfate/Dextrose (MAGNESIUM SULFATE 1GM/D5W 100ML) 100 ML ASDIR PRN IV Nitroglycerin/Dextrose (NITROGLYCERIN 50,000MCG/D5W 250ML) 250 ML ASDIR IV (DC) Norepinephrine/Dextrose (Norepinephrine 8 MG/D5W 250 mL) 250 ML TITRATE IV (DC) Ondansetron HCl (ZOFRAN) 4 MG Q6H PRN PRN IV Oxycodone HCl (ROXICODONE) 5 MG Q4H PRN PRN PO (DC) Oxycodone HCl (ROXICODONE) 10 MG Q4H PRN PRN PO (DC) Potassium Chloride (KCL 20MEQ/SWFI 100ML) 100 ML ASDIR PRN IV (DC) Sodium Bicarbonate (SODIUM BICARBONATE) 50 MEQ ASDIR PRN IV (DC) Sodium Chloride (SODIUM CHLORIDE 0.9%) 250 ML Q24H IV Physical Exam General appearance: alert, awake, oriented, no acute distress, conversational, no respiratory distress Cardiovascular: regular rate and rhythm Respiratory: no distress Extremities: no edema 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: alert, oriented X 3, normal speech Skin: dry, normal color Psychiatry: normal affect, normal judgment/insight, normal mood Results Findings/data: Laboratory Tests 10/27 225 Chemistry Sodium (134 - 147 mEq/L) 142 Potassium (3.4 - 5.0 mEq/L) 4.2 Chloride (100 - 108 mEq/L) 109 H Carbon Dioxide (21 - 33 mEq/l) 25 Anion Gap (0 - 20) 12 BUN (7 - 25 mg/dL) 18 Creatinine (0.6 - 1.3 mg/dL) 0.8 Glomerular Filtr Rate (80 - 90) 100.1 H Glucose (77 - 141 mg/dL) 108 Calcium (8.0 - 10.5 mg/dL) 8.0 Magnesium (1.6 - 2.6 mg/dL) 2.06 Laboratory Tests 10/27 225 Hematology WBC (4.5 - 11.0 x10 3/uL) 11.2 H RBC (4.00 - 5.60 x10 6/uL) 2.23 L Hgb (12.5 - 16.9 g/dL) 6.3 *L Hct (37.5 - 50.7 %) 20.4 L MCV (81.0 - 99.0 fL) 91.5 MCH (27.0 - 33.0 pg) 28.3 MCHC (33.0 - 37.0 g/dL) 30.9 L RDW (11.5 - 14.5 %) 14.6 H Plt Count (150 - 400 x10 3/uL) 373 MPV (7.0 - 9.0 fL) 9.1 H Neut % (Auto) (56.0 - 77.0 %) 64.2 Lymph % (Auto) (14.0 - 32.0 %) 19.4 [place] % (Auto) (4.8 - 9.0 %) 10.5 H Eos % (Auto) (0.3 - 3.7 %) 3.9 H Baso % (Auto) (0.0 - 2.0 %) 0.3 Neut # (Auto) (2.0 - 7.6 x10 3/uL) 7.21 Lymph # (Auto) (1.0 - 3.8 x10 3/uL) 2.18 [place] # (Auto) (0.1 - 0.8 x10 3/uL) 1.18 H Eos # (Auto) (0.0 - 0.2 x10 3/uL) 0.44 H Baso # (Auto) (0.0 - 0.2 x10 3/uL) 0.03 Abs Immat Gran (auto) (0.00 - 0.03 x10 3/uL) 0.19 H Immature Gran % (0.0 - 2.0 %) 1.7 Nucleated RBC % (0 - 0 %) 0.6 H Nucleated RBCs # (Man) (0.0 - 0.1 x10 3/uL) 0.07 Laboratory Tests Test Result Date Time Chemistry B-Natriuretic Peptide (0 - 100 PG/ML) 109.0 H 10/14 2108 Results: labs reviewed, vital signs reviewed, rhythm personally rev'd, current med profile rev'd Telemetry interpretation: SR rate 70 Diagnosis, Assessment Plan Consultants: cardiology Free Text DxA P Notes Free text DxA P notes: This is a 63 y.o male with medical history of HTN, CHF, CAD with 7 stents, who was transfered to [facility] on 10/14/24 from [facility] with NSTEMI. LHC was performed on 10/16/24- two vessel CAD, CABG was recommended. 10/21/24 the patient underwent CABG x4 (NIEVES-LAD, SVG-DIAG, SVG-OM1, SVG-Om2) Bilateral EVH, ALAA, PP. ECHO on 10/15/24- Pre-op LVEF 35-39% ECHO on 10/25/24- Post-op * Left ventricle: Systolic function is mildly reduced. * The IVC is normal-sized [id number]% d/c norvasc start on spironolactone 12.5mg po daily monitor for volume overload Maintain MAP 70-90 keep CVP 8-10 Strict I Os and daily standing weight Maintain K 4 and Mg 2 Trend CBC, BMP, Mg BP 139/74 SR rate 70 I O -330cc x24hrs GDMT: * Metoprolol Tartrate 12.5mg po Bid * Spironolactone 12.5mg po daily CAD/s/p CABG x4 (NIEVES-LAD, SVG-DIAG, SVG-OM1, SVG-Om2) con't Meds: Amiodarone, Plavix, ASA, Atorvastatin, Metoprolol tartrate con't PT/OT Hyperlipidemia: Continue statin Hypertension: Continue Metoprolol tartrate 25mg po bid Reid Neal 10/28/24 1235: Attestations Physician Attestation Agree w/findings plan: CAD/s/p CABG x 4 (NIEVES-LAD, SVG-DIAG, SVG-OM1, SVG-OM2,) ALAA HFrEF-acute on chronic Hypertension Hyperlipidemia [facility] is hemodynamically stable [facility] Start spironolactone 12.5 mg p.o. daily Patient is euvolemic-maintain I's and O's net even continue DAPT with aspirin and Plavix Continue metoprolol, Lipitor and amiodarone Maintain MAP 70-90 Maintain CVP 8-10 Strict I Os and daily standing weight Maintain K 4 and Mg 2 Trend CBC, BMP I agree with the history, physical, and the assessment and plan as outlined by Doni Macrthur NP. I have personally seen and examined the patient independently, and reviewed the patient's history, exam, and all cardiac and laboratory data. I was present and supervised. Critical care time spent 35 minutes. at 1111 at 1304 RPT #:[id number] END OF REPORT [facility] 2024-10-27 09:02:00 [facility] ([facility]) Hospitalist Progress Note REPORT#:[id number] REPORT STATUS: Signed REPORT INITIALIZATION DATE:10/27/24 TIME: 901 PATIENT: CLEO LONG UNIT #: [id number] ROOM/BED: [place] [id number] : [birth year] AGE: 63 SEX: M ATTEND: Shyla Zepeda MD ADM AUTHOR: Ann Marie Llanos APRN REPT SERVICE DT/TIME: 10/27/24 09 * ALL edits or amendments must be made on the electronic/computer document * Subjective Chief complaint: up in chair, no complaints HPI: 63 years old male with PMH of HTN, CHF and CAD with 7 stents complaint of cp . pain did not radiate . he also found elevate troponin . he was transferred to the hospital from [facility] due to NSTEMI . no fever no cough no sob no edema no nausea no vomiting no rosalind pain no dysuria no dizziness no syncope no neurology deficit . Review of Systems Constitutional: Reports: generalized weakness. Respiratory: Denies: SOB, wheezing. Cardiovascular: Denies: chest pain. GI: Denies: constipation, nausea, vomiting. All systems rev neg: except as noted Objective General VS/I O: Vital Signs: Date Time Temp Pulse Resp B/P B/P Pulse O2 O2 Flow FiO2 Mean Ox Delivery Rate 10/27 0711 64 23 98 10/27 0700 65 24 162/80 115 98 10/27 0630 65 19 147/80 106 100 10/27 0600 67 20 162/77 110 98 10/27 0534 69 19 153/72 104 96 10/27 0500 66 27 149/84 111 96 10/27 0430 65 18 172/81 116 99 10/27 0400 65 20 155/76 109 98 10/27 0335 64 134/72 98 97 10/27 0300 64 15 134/75 98 10/27 0230 65 23 159/76 109 96 10/27 0200 63 22 138/78 102 98 10/27 0130 64 25 122/77 96 97 10/27 0100 64 28 130/74 97 95 10/27 0030 61 26 148/66 95 97 10/27 0001 64 25 128/70 93 98 10/27 0000 63 28 97 10/26 2331 66 24 98 10/26 2300 68 144/75 101 99 10/26 2230 67 148/67 97 97 10/26 2212 69 29 98 10/26 2201 72 28 157/70 101 98 10/26 2200 71 30 99 10/26 2130 72 24 143/77 103 100 10/26 2100 72 25 124/62 83 97 10/26 2040 73 97 10/26 2031 73 30 98 10/26 2004 71 26 165/72 104 98 10/26 2000 36.9 10/26 2000 73 25 96 10/26 1942 73 29 167/76 113 99 10/26 1941 73 40 100 10/26 1930 74 31 100 10/26 1916 99 Room air 10/26 1901 75 33 160/76 109 99 10/26 1900 75 27 99 10/26 1831 74 21 108/74 87 100 10/26 1800 72 29 121/58 83 98 10/26 1701 73 28 155/72 103 98 10/26 1627 76 30 151/74 106 98 10/26 1500 67 23 98 10/26 1400 67 26 100 10/26 1304 67 153/67 97 100 10/26 1200 62 26 126/58 83 98 10/26 1112 63 22 125/59 85 98 10/26 1000 63 22 144/65 93 98 24 hour I O ending at 0700: 10/27 0700 10/26 1900 Intake Total 820.00 550 Output Total 875 825 Balance -55.00 -275 Intake, IV 100.00 Intake, Oral 720 450 Intake, Oral 100 Supplement Number 0 1 Bowel Movements Number Voids 4 Output, Stool 0 Output, Urine 875 825 Patient 73.6 kg Weight Weight Standing scale Measurement Method PATIENT WEIGHT: Weight (lb): 162 Weight (oz): 4.16 Weight (kg): 73.600 Medications: Active Meds + DC'd Last 24 Hrs Metoprolol Tartrate (LOPRESSOR) 25 MG Q12HR PO Melatonin (Melatonin) 6 MG BEDTIME PRN PRN PO Ipratropium [place] (ATROVENT) 500 MCG RTQ2H PRN PRN INH Cyanocobalamin (Vitamin B-12 500 mcg tab) 500 MCG DAILY PO Ferrous Sulfate (FERROUS SULFATE) 325 MG DAILY PO Bisacodyl (DULCOLAX) 10 MG ONCE PRN RECTAL Hydralazine HCl (APRESOLINE) 50 MG Q8H PRN PRN PO Amlodipine Besylate (NORVASC) 5 MG DAILY PO Clopidogrel Bisulfate (Plavix) 75 MG DAILY PO Polyethylene Glycol (MIRALAX) 17 GM DAILY PO Pantoprazole (PROTONIX) 40 MG DAILY@0600 PO Atorvastatin Calcium (LIPITOR) 40 MG 2100 PO Docusate Sodium (COLACE) 100 MG BID PO Sennosides (Senna Lax 8.6 MG TABLET) 17.2 MG BEDTIME PO Aspirin (ASPIRIN) 81 MG DAILY PO Amiodarone HCl (CORDARONE) 200 MG TID PO Acetaminophen (TYLENOL) 650 MG Q4H PRN PRN PO Acetaminophen (TYLENOL) 650 MG Q4H PRN PRN RECTAL Calcium Chloride (CALCIUM CHLORIDE) 1 GM ASDIR PRN IV Dextrose/Water (DEXTROSE 10% IN WATER) 125 ML ASDIR PRN IV (CKD) Dextrose/Water (DEXTROSE 10% IN WATER) 250 ML ASDIR PRN IV (CKD) Epinephrine (ADRENALIN CHLORIDE) 4 MG ASDIR IV Dextrose/Water (DEXTROSE 5% WATER) 246 ML Glucagon (GLUCAGON) 1 MG ASDIR PRN IM Insulin Human Regular (MYXREDLIN 100 UNITS/NS 100ML) 100 ML ASDIR IV (DC ) Magnesium Sulfate (MAGNESIUM SULFATE 4GM/SWFI 100ML) 100 ML ASDIR PRN IV Magnesium Sulfate (MAGNESIUM SULFATE 2GM/SWFI 50ML) 50 ML ASDIR PRN IV Magnesium Sulfate/Dextrose (MAGNESIUM SULFATE 1GM/D5W 100ML) 100 ML ASDIR PRN IV Nitroglycerin/Dextrose (NITROGLYCERIN 50,000MCG/D5W 250ML) 250 ML ASDIR IV Norepinephrine/Dextrose (Norepinephrine 8 MG/D5W 250 mL) 250 ML TITRATE IV Ondansetron HCl (ZOFRAN) 4 MG Q6H PRN PRN IV Oxycodone HCl (ROXICODONE) 5 MG Q4H PRN PRN PO (DC) Oxycodone HCl (ROXICODONE) 10 MG Q4H PRN PRN PO (DC) Potassium Chloride (KCL 20MEQ/SWFI 100ML) 100 ML ASDIR PRN IV Sodium Bicarbonate (SODIUM BICARBONATE) 50 MEQ ASDIR PRN IV Sodium Chloride (SODIUM CHLORIDE 0.9%) 250 ML Q24H IV Physical Exam General appearance: alert, awake, oriented, no acute distress, no respiratory distress Head/Eyes: atraumatic, normal conjunctiva/sclera, normal eyelids/periorb. Neck: full range of motion, non-tender, normal thyroid Cardiovascular: normal heart sounds, regular rate rhythm Respiratory: aerating well, clear to auscultation Abdomen: non-tender, normal bowel sounds, soft, no distention Extremities: moves all, no calf tenderness, no edema 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: alert, oriented X 3, CNII-XII intact, normal speech, no motor deficits, no sensory deficits Skin: dry, intact Psychiatry: normal affect, normal judgment/insight Results Findings/Data: Laboratory Tests 10/27 225 Chemistry Sodium (134 - 147 mEq/L) 142 Potassium (3.4 - 5.0 mEq/L) 4.2 Chloride (100 - 108 mEq/L) 109 H Carbon Dioxide (21 - 33 mEq/l) 25 Anion Gap (0 - 20) 12 BUN (7 - 25 mg/dL) 18 Creatinine (0.6 - 1.3 mg/dL) 0.8 Glomerular Filtr Rate (80 - 90) 100.1 H Glucose (77 - 141 mg/dL) 108 Calcium (8.0 - 10.5 mg/dL) 8.0 Magnesium (1.6 - 2.6 mg/dL) 2.06 Laboratory Tests 10/27 225 Hematology WBC (4.5 - 11.0 x10 3/uL) 11.2 H RBC (4.00 - 5.60 x10 6/uL) 2.23 L Hgb (12.5 - 16.9 g/dL) 6.3 *L Hct (37.5 - 50.7 %) 20.4 L MCV (81.0 - 99.0 fL) 91.5 MCH (27.0 - 33.0 pg) 28.3 MCHC (33.0 - 37.0 g/dL) 30.9 L RDW (11.5 - 14.5 %) 14.6 H Plt Count (150 - 400 x10 3/uL) 373 MPV (7.0 - 9.0 fL) 9.1 H Neut % (Auto) (56.0 - 77.0 %) 64.2 Lymph % (Auto) (14.0 - 32.0 %) 19.4 [place] % (Auto) (4.8 - 9.0 %) 10.5 H Eos % (Auto) (0.3 - 3.7 %) 3.9 H Baso % (Auto) (0.0 - 2.0 %) 0.3 Neut # (Auto) (2.0 - 7.6 x10 3/uL) 7.21 Lymph # (Auto) (1.0 - 3.8 x10 3/uL) 2.18 [place] # (Auto) (0.1 - 0.8 x10 3/uL) 1.18 H Eos # (Auto) (0.0 - 0.2 x10 3/uL) 0.44 H Baso # (Auto) (0.0 - 0.2 x10 3/uL) 0.03 Abs Immat Gran (auto) (0.00 - 0.03 x10 3/uL) 0.19 H Immature Gran % (0.0 - 2.0 %) 1.7 Nucleated RBC % (0 - 0 %) 0.6 H Nucleated RBCs # (Man) (0.0 - 0.1 x10 3/uL) 0.07 Diagnosis, Assessment Plan Consultants: cardiology Free Text DxA P Notes Free text DxA P notes: 63 YO male with CAD with stent Substance use HTN heart disease with HF Chronic systolic HF EF 35-39% Right carotid stenosis 50-69% anemia -- due to acute blood loss 10/15 tele cardiology consult continue ASA/plavix /lipitor CHF -- continue lasix and aldactone -- cozaar HTN- continue coreg 10/16- no cp no sob -- cath today -- post cath -- CABG evaluation 10/17 CABG next week, medically stable to proceed 10/18 CABG next week, Chest CT scan showed ? Pericardal effusion. stable to proceed 10/19 Vitals and labs stable today. No acute complaints. CABG later then week per surgeon. 10/20 labs and vitals remains stable. CABG later this week when surgery schedules. 10/22 S/P CABG 10/21. Continue postop care per CT surgery in ICU. Monitor chest tube OP. Monitor hgb, transfuse if hgb <7. S/P 1 unit PRBC. PT/OT for OOB. DC planning, possible SNF vs IPR. 10/23 Continue post-op care. PT/OT. Chest tubes out. Labs noted, CMP ok. Monitor Hgb and WBC. Rehab eval. 10/24- he sit on the chair no sob no dizziness -- he is hemodynamic stable -- HB-- 6.3- 6.1-- monitor H H --blood transfuse as CV surgeon and critical care --continue monitor in CV icu -- lab review 10/25 -- he had bowel movement . he is doing well . ambulate with PT -- he is hemodynamic stable -- H h -- 6.4- stable -- as cv surgeon -- continue PT/OT -- CM-- rehab or SNF placement 10/27 Continue post-op care per surgeon. Monitor H+H, no order for transfusion at this time, same range for few days, asymptomatic. PT/OT. To floor when cardio surg ok. at 1246 at 2248 RPT #:[id number] END OF REPORT [facility] 2024-10-27 08:50:00 [facility] Cardiothoracic Surgery Prog REPORT#:[id number] REPORT STATUS: Signed REPORT INITIALIZATION DATE:10/27/24 TIME: 0850 PATIENT: CLEO LONG UNIT #: [id number] ROOM/BED: [place] [id number] : 62 AGE: 63 SEX: M ATTEND: Shyla Zepeda MD ADM AUTHOR: Elicia Fishman APRN REPT SERVICE DT/TIME: 10/27/24 0850 * ALL edits or amendments must be made on the electronic/computer document * General Post-op: day 6 Status post: 10/21/2024 1. Coronary artery bypass graft surgery x4 (NIEVES to LAD, saphenous vein to diagonal, saphenous vein to first marginal, saphenous vein to second marginal). 2. Amputation of left atrial appendage. 3. Endoscopic vein harvest independent bilateral greater saphenous vein. 4. Posterior pericardiotomy. Subjective Chief complaint: s/p CABG Review of Systems Constitutional: Reports: fatigue. Denies: chills, fever, generalized weakness. Skin: Denies: abrasion, contusion, ecchymosis. Allergy/Immun: Denies: allergic reaction, hives, rhinorrhea. Eyes: Denies: redness, itching, diplopia. Respiratory: Reports: BAIG (dyspnea on exertion). Denies: hemoptysis, non productive cough, pleuritic pain. Cardiovascular: Denies: chest pain, palpitations. GI: Denies: abdominal pain, nausea, vomiting. Heme: Denies: adenopathy, bleeding, bruising. Endocrine: Denies: cold intolerance, heat intolerance, polyphagia. Neuro: Denies: confusion, dizziness, seizure, syncope. All systems rev neg: except as marked Objective General VS/I O Last Documented: Result Date Time Pulse Ox 98 10/27 711 Pulse 64 10/27 711 Resp 23 10/27 711 B/P 162/80 10/27 07 B/P Mean 115 10/27 07 Temp 98.4 10/26 2000 O2 Delivery Room air 10/26 1916 FiO2 21 10/26 0326 O2 Flow Rate 3 10/23 1121 24 hour I O ending at 0700: 10/27 0700 10/26 1900 Intake Total 820.00 550 Output Total 875 825 Balance -55.00 -275 Intake, IV 100.00 Intake, Oral 720 450 Intake, Oral 100 Supplement Number 0 1 Bowel Movements Number Voids 4 Output, Stool 0 Output, Urine 875 825 Patient 73.6 kg Weight Weight Standing scale Measurement Method PATIENT WEIGHT: Weight (lb): 162 Weight (oz): 4.16 Weight (kg): 73.600 Dietitian Nutrition assessment The data set between the solid lines has been imported from the dietitian's assessment. BMI Calculated: 23.3 Nutrition related diagnosis: Nutrition diagnosis details: Nutrition problem: No nutrition diagnosis Nutrition etiology: Nutrition signs and symptoms: Nutrition prescription: 1. continue current cardiac diet Dietitian name: Rubi Cai RD, LD Assessment completed: 10/22/24 Physical Exam General appearance: alert, awake, oriented Wound/incision: Location: sternum Site condition: edges approximated, incision intact HEENT: anicteric, mucosal membranes moist, pupils reactive to light Neck: full range of motion, non-tender Cardiovascular: normal heart sounds, regular rate rhythm Respiratory: decreased breath sounds, wheezing, symmetric expansion, no distress Abdomen: soft, non-tender Genitourinary: no bladder distention, no flank pain Extremities: dry, moves all Musculoskeletal: full range of motion, painless range of motion 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: alert, oriented X 3 Skin: dry, intact Psychiatry: normal affect, normal mood Current Medications Medications: Active Meds + DC'd Last 24 Hrs Metoprolol Tartrate (LOPRESSOR) 25 MG Q12HR PO Melatonin (Melatonin) 6 MG BEDTIME PRN PRN PO Ipratropium [place] (ATROVENT) 500 MCG RTQ2H PRN PRN INH Cyanocobalamin (Vitamin B-12 500 mcg tab) 500 MCG DAILY PO Ferrous Sulfate (FERROUS SULFATE) 325 MG DAILY PO Bisacodyl (DULCOLAX) 10 MG ONCE PRN RECTAL Hydralazine HCl (APRESOLINE) 50 MG Q8H PRN PRN PO Amlodipine Besylate (NORVASC) 5 MG DAILY PO Clopidogrel Bisulfate (Plavix) 75 MG DAILY PO Polyethylene Glycol (MIRALAX) 17 GM DAILY PO Pantoprazole (PROTONIX) 40 MG DAILY@0600 PO Atorvastatin Calcium (LIPITOR) 40 MG 2100 PO Docusate Sodium (COLACE) 100 MG BID PO Sennosides (Senna Lax 8.6 MG TABLET) 17.2 MG BEDTIME PO Aspirin (ASPIRIN) 81 MG DAILY PO Amiodarone HCl (CORDARONE) 200 MG TID PO Acetaminophen (TYLENOL) 650 MG Q4H PRN PRN PO Acetaminophen (TYLENOL) 650 MG Q4H PRN PRN RECTAL Calcium Chloride (CALCIUM CHLORIDE) 1 GM ASDIR PRN IV Dextrose/Water (DEXTROSE 10% IN WATER) 125 ML ASDIR PRN IV (CKD) Dextrose/Water (DEXTROSE 10% IN WATER) 250 ML ASDIR PRN IV (CKD) Epinephrine (ADRENALIN CHLORIDE) 4 MG ASDIR IV Dextrose/Water (DEXTROSE 5% WATER) 246 ML Glucagon (GLUCAGON) 1 MG ASDIR PRN IM Insulin Human Regular (MYXREDLIN 100 UNITS/NS 100ML) 100 ML ASDIR IV (DC ) Magnesium Sulfate (MAGNESIUM SULFATE 4GM/SWFI 100ML) 100 ML ASDIR PRN IV Magnesium Sulfate (MAGNESIUM SULFATE 2GM/SWFI 50ML) 50 ML ASDIR PRN IV Magnesium Sulfate/Dextrose (MAGNESIUM SULFATE 1GM/D5W 100ML) 100 ML ASDIR PRN IV Nitroglycerin/Dextrose (NITROGLYCERIN 50,000MCG/D5W 250ML) 250 ML ASDIR IV Norepinephrine/Dextrose (Norepinephrine 8 MG/D5W 250 mL) 250 ML TITRATE IV Ondansetron HCl (ZOFRAN) 4 MG Q6H PRN PRN IV Oxycodone HCl (ROXICODONE) 5 MG Q4H PRN PRN PO (DC) Oxycodone HCl (ROXICODONE) 10 MG Q4H PRN PRN PO (DC) Potassium Chloride (KCL 20MEQ/SWFI 100ML) 100 ML ASDIR PRN IV Sodium Bicarbonate (SODIUM BICARBONATE) 50 MEQ ASDIR PRN IV Sodium Chloride (SODIUM CHLORIDE 0.9%) 250 ML Q24H IV Results Findings/Data: Laboratory Tests 10/27 225 Chemistry Sodium (134 - 147 mEq/L) 142 Potassium (3.4 - 5.0 mEq/L) 4.2 Chloride (100 - 108 mEq/L) 109 H Carbon Dioxide (21 - 33 mEq/l) 25 Anion Gap (0 - 20) 12 BUN (7 - 25 mg/dL) 18 Creatinine (0.6 - 1.3 mg/dL) 0.8 Glomerular Filtr Rate (80 - 90) 100.1 H Glucose (77 - 141 mg/dL) 108 Calcium (8.0 - 10.5 mg/dL) 8.0 Magnesium (1.6 - 2.6 mg/dL) 2.06 Laboratory Tests 10/27 225 Hematology WBC (4.5 - 11.0 x10 3/uL) 11.2 H RBC (4.00 - 5.60 x10 6/uL) 2.23 L Hgb (12.5 - 16.9 g/dL) 6.3 *L Hct (37.5 - 50.7 %) 20.4 L MCV (81.0 - 99.0 fL) 91.5 MCH (27.0 - 33.0 pg) 28.3 MCHC (33.0 - 37.0 g/dL) 30.9 L RDW (11.5 - 14.5 %) 14.6 H Plt Count (150 - 400 x10 3/uL) 373 MPV (7.0 - 9.0 fL) 9.1 H Neut % (Auto) (56.0 - 77.0 %) 64.2 Lymph % (Auto) (14.0 - 32.0 %) 19.4 [place] % (Auto) (4.8 - 9.0 %) 10.5 H Eos % (Auto) (0.3 - 3.7 %) 3.9 H Baso % (Auto) (0.0 - 2.0 %) 0.3 Neut # (Auto) (2.0 - 7.6 x10 3/uL) 7.21 Lymph # (Auto) (1.0 - 3.8 x10 3/uL) 2.18 [place] # (Auto) (0.1 - 0.8 x10 3/uL) 1.18 H Eos # (Auto) (0.0 - 0.2 x10 3/uL) 0.44 H Baso # (Auto) (0.0 - 0.2 x10 3/uL) 0.03 Abs Immat Gran (auto) (0.00 - 0.03 x10 3/uL) 0.19 H Immature Gran % (0.0 - 2.0 %) 1.7 Nucleated RBC % (0 - 0 %) 0.6 H Nucleated RBCs # (Man) (0.0 - 0.1 x10 3/uL) 0.07 Results: labs reviewed, vital signs stable, rythm personally rev'd, x-ray personally reviewed, current med profile rev'd Treatment Prophylaxis Treatment Prophylaxis CVC/PICC documentation: The data below has been imported from nursing documentation. Any exceptions have been noted below under Provider comments. CVC/PICC insertion date/time: No CVC/PICC Provider comments on imported nursing data: [] Quality: Trauma Gen Surg Current Medications Current medication review: Current Medications Sig/Nia Start time Last Medication Dose Route Stop Time Status Admin Aspirin 81 MG BEDTIME 10/15 2100 AC PO 01/13 2059 Acetaminophen 650 MG Q6H PRN PRN 10/15 1030 AC PO 01/13 1029 Clopidogrel Bisulfate 75 MG DAILY 10/15 1030 AC PO 01/13 1029 Morphine Sulfate 2 MG Q4H PRN PRN 10/15 1030 AC IV 10/20 1029 Ondansetron HCl 4 MG Q4H PRN PRN 10/15 1030 AC IV 01/13 1029 Albuterol/Ipratropium 3 ML X1ED STA 10/14 2127 DC 10/14 NEB 10/14 Aspirin 324 MG X1ED STA 10/14 2105 DC PO 10/14 2106 Home Medications: FUROSEMIDE (LASIX) 20 MG PO DAILY LOSARTAN 100 MG PO DAILY SPIRONOLACTONE (ALDACTONE) 25 MG PO DAILY ASPIRIN 81 MG PO DAILY CARVEDILOL (carvediloL) 12.5 MG PO BID CLOPIDOGREL (PLAVIX) 75 MG PO DAILY ATORVASTATIN (LIPITOR) 80 MG PO BEDTIME I attest that the foregoing medication list in the medical record is true, accurate, and complete to the best of my knowledge. Diagnosis, Assessment Plan Hospital course to date: This is a 63-year-old male with a past medical history of HTN, HLD, CHF and CAD with s/p 7 stents who presented with complaints of chest pain. The pain did not radiate. Labs include troponin of 71, and all other labs unremarkable. Patient was transferred to [facility] from [facility] due to NSTEMI. He denies recent fever, cough, shortness of breath, or edema. 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 Left circumflex large dominant vessel first obtuse marginal is patent has stents that looks fine another stent in the mid circumflex beyond the obtuse marginal that has 80 to 90% focal severe restenosis otherwise circumflex distally has diffuse disease distal disease. RCA small nondominant vessel. CV surgery consulted for evaluation of multi-vessel coronary artery disease. Dr. Ko has seen and examined the patient. Thank you for this kind consultation. Assessment/Plan: 1. Multi-vessel coronary artery disease s/p stents 2. Hypertension 3. Hyperlipidemia Patient not able to answer questions due to sedation effects following [facility] CABG workup initiated CT chest w/o contrast Vein mapping and marking Carotid US Urinalysis MRSA/MSSA Hemoglobin A1C Patient seen and examined by Dr. Ko. All questions answered. 10/17/24 Patient alert, awake, oriented, denies any chest pain Breathing comfortable on room air, encourage incentive spirometer teaching Labs and imaging reviewed Last dose of Plavix on 10/16, check platelet response to Plavix Urinalysis negative Hemoglobin A1c 5.[address] chest and MRSA/MSSA Carotid duplex shows 50 to 69% right internal carotid artery stenosis Vein mapping reviewed, veins not visualized on left knee and calf area Echocardiogram shows EF 35 to 39%, moderate to severe diffuse hypokinesis, grade 1 diastolic dysfunction, aortic valve thickening consistent with sclerosis, mild MR, small to moderate pericardial effusion Transfer to CVN 1 Further recommendations to follow Patient seen and examined by Dr. Ko, discussed plan of care with patient, questions were answered 10/18/24 Patient alert, awake, oriented, denies any chest pain Breathing comfortable on room air, encourage incentive spirometer teaching Labs and imaging reviewed, patient had positive drug screen amphetamines and cannabis, educated patient on drug cessation Last dose of Plavix on 10/16, check platelet response to Plavix-87 Urinalysis negative Hemoglobin A1c 5.[address] chest and MRSA/MSSA- Carotid duplex shows 50 to 69% right internal carotid artery stenosis Vein mapping reviewed, veins not visualized on left knee and calf area Echocardiogram shows EF 35 to 39%, moderate to severe diffuse hypokinesis, grade 1 diastolic dysfunction, aortic valve thickening consistent with sclerosis, mild MR, small to moderate pericardial effusion Plan for surgery in upcoming week once platelet response to Plavix improved Patient seen and examined by Dr. Ko, discussed plan of care with patient, questions were answered. 10/19/24 Patient alert, awake, oriented, denies any chest pain Breathing comfortable on room air, encourage incentive spirometer teaching Labs and imaging reviewed, patient had positive drug screen amphetamines and cannabis, educated patient on drug cessation Last dose of Plavix on 10/16, check platelet response to Plavix-87 - Repeat Platelet response and TEG tomorrow morning Urinalysis negative Hemoglobin A1c 5.3 CT chest completed, showing Cardiomegaly with a 2 cm thick pericardial effusion MRSA/MSSA negative Carotid duplex shows 50 to 69% right internal carotid artery stenosis Vein mapping reviewed, veins not visualized on left knee and calf area Echocardiogram shows EF 35 to 39%, moderate to severe diffuse hypokinesis, grade 1 diastolic dysfunction, aortic valve thickening consistent with sclerosis, mild MR, small to moderate pericardial effusion Plan for surgery later in the week once platelet response to Plavix has improved Patient seen and examined by Dr. Ko, discussed plan of care with patient, questions were answered. 10/20/24 Patient alert, awake, oriented, denies any chest pain Breathing comfortable on room air, encourage incentive spirometer teaching Labs and imaging reviewed, patient had positive drug screen amphetamines and cannabis, educated patient on drug cessation Last dose of Plavix on 10/16, check platelet response to Plavix-87 -Platelet response today is 109, TEG completed ADP % inhibition 20.6, ADP 59.4 Urinalysis negative Hemoglobin A1c 5.3 CT chest completed, showing Cardiomegaly with a 2 cm thick pericardial effusion MRSA/MSSA negative Carotid duplex shows 50 to 69% right internal carotid artery stenosis Vein mapping reviewed, veins not visualized on left knee and calf area Echocardiogram shows EF 35 to 39%, moderate to severe diffuse hypokinesis, grade 1 diastolic dysfunction, aortic valve thickening consistent with sclerosis, mild MR, small to moderate pericardial effusion PFTs to be completed tomorrow Surgery will be scheduled later this week. Patient seen and examined by Dr. Ko, discussed plan of care with patient, questions were answered. 10/21/24 Events occurred yesterday and overnight, where patient had went missing for a couple hours during the evening and then the family was found vaping in the patient's room. Dr. Ko discussed with the patient the expectations and rules that must be followed while in the hospital. The patient understands, and agreed that he would abstain from any drug use or smoking. A drug toxicology screen was completed, positive for Cannabinoids. Patient will benefit from surgical revascularization, Dr. Ko explained to the patient and family the need for coronary artery bypass graft surgery. He explained in detail the operation, risks involved, STS risk score calculator, benefits, alternatives, and complications. Patient acknowledges understanding and is agreeable to proceed, all questions were answered and consent is obtained. Patient is scheduled for coronary artery bypass graft surgery this afternoon. 1. Coronary artery bypass graft surgery x4 (NIEVES to LAD, saphenous vein to diagonal, saphenous vein to first marginal, saphenous vein to second marginal). 2. Amputation of left atrial appendage. 3. Endoscopic vein harvest independent bilateral greater saphenous vein. 4. Posterior pericardiotomy. 10/22/24 POD 1 Patient alert, awake, oriented, reports pain uncontrolled Labs reviewed, hemoglobin 7.6, given 1 unit of PRBC yesterday, replace electrolytes as needed, creatinine 1.1 H H at noon Breathing comfortably on RA, encourage incentive spirometer use and deep breathing, nebs, chest x-ray reviewed Chest tube outputs LP 260cc, MS 270cc overnight, keep in place and continue monitoring, will reassess after ambulation Normal sinus rhythm, epicardial pacing wires on standby, monitoring blood pressure, CVP 7 Advance diet as tolerated, nutritional supplements, bowel regimen, monitoring BS Montiel, Urine output overnight 1020cc, strict I's O's, daily standing scale weights, +2428 24 hr- fluid balance PT/OT, OOB for all meals, encourage ambulation DVT prophylaxis with SCDs, GI prophylaxis with PPI Disposition: patient and family admitted yesterday they are not at one specific place living. Consult case management for possible SNF vs. rehab Continue supportive care ICC following Patient seen and examined by Dr. Ko. Discussed plan of care with patient, nurse and interdisciplinary team. All questions answered. 10/23/24 POD 2 Patient alert, awake, oriented, reports pain uncontrolled, on nitro gtt Labs reviewed, hgb 7.2, replace electrolytes as needed On 8L HFNC, wean as tolerated, encourage incentive spirometer use and deep breathing, nebs, chest x-ray reviewed Normal sinus rhythm, epicardial pacing wires on standby, monitoring blood pressure, increase BB to metoprolol 50mg BID, add amlodipine 5mg daily, CVP 8 Advance diet as tolerated, nutritional supplements, bowel regimen, monitoring BS Montiel, Urine output overnight 525cc, strict I's O's, daily standing scale weights, +479 24 hr- fluid balance, weight trending up PT/OT, OOB for all meals, encourage ambulation DVT prophylaxis with SCDs, GI prophylaxis with PPI Disposition: patient and family admitted they are not at one specific place living. Case management following, SNF vs. rehab Continue supportive care ICC following, JEFF careyey Patient seen and examined by Dr. Ko. Discussed plan of care with patient, nurse and interdisciplinary team. All questions answered. 10/24/24 POD 3 Patient alert, awake, oriented, reports pain improving. Labs reviewed, HGB 6.1- Moniotr Closely, repeat H7H this afternoon. replace electrolytes as needed On 4L, wean as tolerated, encourage incentive spirometer use and deep breathing, nebs, chest x-ray reviewed Normal sinus rhythm, epicardial pacing wires on standby, monitoring blood pressure, metoprolol 50mg BID, add amlodipine 5mg daily, Advance diet as tolerated, nutritonal supplements, bowel regimen, monitoring BS PT/OT, OOB for all meals, encourage ambulation DVT prophylaxis with SCDs, GI prophylaxis with PPI Disposition: patient and family admitted they are not at one specific place living. Case management following, SNF vs. rehab Continue supportive care ICC following, Patient seen and examined by Dr. Ko. Discussed plan of care with patient, nurse and interdisciplinary team. All questions answered. No signs of hemodynamic instability. repeat H H this afternoon. Continue OOB walking. 10/25/24 POD 4 Patient alert, awake, oriented, reports pain improving. Labs reviewed, HGB 6.4, slightly improved. No tachycardia no signs of hemodynamic instability replace electrolytes as needed On room air Normal sinus rhythm, epicardial pacing wires on standby, monitoring blood pressure, metoprolol 50mg BID, add amlodipine 5mg daily, Tolerating diet, reports bowel movements PT/OT, OOB for all meals, encourage ambulation DVT prophylaxis with SCDs, GI prophylaxis with PPI Disposition: patient and family admitted they are not at one specific place living. Rehab consulted Case management following, will need SNF vs. rehab Continue supportive care Will obtain DVT studies Patient seen and examined by Dr. Ko. Discussed plan of care with patient, nurse and interdisciplinary team. All questions answered. No signs of hemodynamic instability. repeat H H this afternoon. Continue OOB walking. 10/26/24 POD 5 Patient alert, awake, oriented, reports pain improving. Labs reviewed, HGB 6.5, slightly improved-stable No tachycardia no signs of hemodynamic instability, replace electrolytes as needed Breathing comfortable on room air, encourage incentive spirometer use Normal sinus rhythm, epicardial pacing wires on standby-discontinue today, limited echocardiogram monitoring blood pressure, metoprolol 25mg BID, amlodipine 5mg daily, Tolerating cardiac diet, reports bowel movements Strict I's and O's and daily standing scale weight, weight trending down PT/OT, OOB for all meals, encourage ambulation DVT prophylaxis with SCDs, GI prophylaxis with PPI Bilateral extremity Dopplers negative for DVT Disposition: patient and family admitted they are not at one specific place living. Rehab consulted Case management following, will need SNF vs. rehab Continue supportive care Patient seen and examined by Dr. Ko. Discussed plan of care with patient, nurse and interdisciplinary team. All questions answered. 10/27/24 POD 6 Patient alert, awake, oriented, reports pain improving. Labs reviewed, HGB 6.3-stable No tachycardia no signs of hemodynamic instability, replace electrolytes as needed Breathing comfortable on room air, encourage incentive spirometer use Normal sinus rhythm, limited echocardiogram-shows small to moderate pericardial effusion, monitor closely, monitoring blood pressure, metoprolol 25mg BID, amlodipine 5mg daily, Tolerating cardiac diet, reports bowel movements Strict I's and O's and daily standing scale weight, weight trending down PT/OT, OOB for all meals, encourage ambulation DVT prophylaxis with SCDs, GI prophylaxis with PPI Bilateral extremity Dopplers negative for DVT Disposition: patient and family admitted they are not at one specific place living. Rehab consulted Case management following, will need SNF vs. rehab Transfer to [facility] 1 Continue supportive care Patient seen and examined by Dr. Ko. Discussed plan of care with patient, nurse and interdisciplinary team. All questions answered. Orders: Procedure Date/time Status TRANSFER 10/27 6281 Active Consultants: cardiology Code status: full code Plan discussed with: patient, collaborating , nurse at 0855 at 3734 RPT #:[id number] END OF REPORT [facility] 2024-10-27 06:50:00 [facility] ([facility] Critical Care Progress Note REPORT#:[id number] REPORT STATUS: Signed REPORT INITIALIZATION DATE:10/27/24 TIME: 0650 PATIENT: CLEO LONG UNIT #: [id number] ROOM/BED: [place] [id number] : 61 AGE: 63 SEX: M ATTEND: Shyla Zepeda MD ADM AUTHOR: Rickey Kerr MD REPT SERVICE DT/TIME: 10/27/24 0650 * ALL edits or amendments must be made on the electronic/computer document * Subjective Chief complaint: CAD HPI: Patient is a 63-year-old male with past medical history of hypertension, hyperlipidemia, CHF and coronary artery disease with 7 previous stents. Patient presented with chest pain. His left heart cath on the sixth that showed multivessel coronary artery disease. He underwent CABG x 4 today with CV surgery. He is not the CVICU for postoperative care. His postoperative echo had an EF of 50% on epi of 3. He was also on vasopressin 0.02 and on small dose of norepinephrine. He received 1 L of crystalloid intraoperatively and 250 of Cell Saver. He also received 2 units of platelets and 2 FFP. Currently sinus rhythm in the 60s and quickly titrating down on drips. Sedation is off. His paralytic was reversed. He was started on spontaneous breathing trial. Postop labs, EKG, chest x-ray pending. He is noted to have increased output out of his mediastinal drain. He put out 130 of sanguinous output in 1 hour. Tag sent and will give another FFP and platelet. 10/22: Patient seen and evaluated bedside. No acute events overnight. Is on room air. Started on nitro for high blood pressure this morning. Complaining of pain at chest tube site 10/23: Patient seen and evaluated bedside. No acute events overnight. Remains on nitro infusion for hypertension. Is on 3 L nasal cannula. Pain is better controlled. Will increase beta-fletcher today and start amlodipine. 10/24 Seen evaluated this morning. Patient's been doing fairly well. Of any drips. On room air. Pain is well-controlled. H H trended downwards with a hemoglobin of 6.3 this morning from 7.2. No signs of active bleeding. No tachycardia blood pressure stable's. Discussed with cardiac surgery at this time we will be watching only unless there is any changes in hemodynamics. Patient feels okay ambulating. Did have a large liquid bowel movement. Hemoccult has been sent. No fevers. 10/25 Seen evaluated this morning doing fairly well no issues room air H H remained stable. Tolerating well p.o. intake. Will do gentle diuresis. Hemoccult negative. Disposition planning started. 10/26 Seen evaluated this morning no significant issues overnight. His beta-fletcher was cut down due to bradycardia yesterday. Awake and alert on room air. Discussion held today may need some rehab awaiting disposition planning otherwise H H remained stable. 10/27 Seen evaluated this morning no significant issue overnight heart rate has been better with the decreased dose of beta-fletcher. Good urine output still on room air ambulating tolerating well p.o. still awaiting discharge planning. Objective General VS/I O Last Documented: Result Date Time Pulse Ox 95 10/27 0900 B/P 139/74 10/27 0900 B/P Mean 100 10/27 0900 Pulse 66 10/27 0900 Resp 24 10/27 09 FiO2 21 10/27 07 O2 Delivery Room air 10/27 723 Temp 98.4 10/26 2000 O2 Flow Rate 3 10/23 1121 24 hour I O ending at 0700: 10/27 0700 10/26 1900 Intake Total 820.00 550 Output Total 875 825 Balance -55.00 -275 Intake, IV 100.00 Intake, Oral 720 450 Intake, Oral 100 Supplement Number 0 1 Bowel Movements Number Voids 4 Output, Stool 0 Output, Urine 875 825 Patient 73.6 kg Weight Weight Standing scale Measurement Method PATIENT WEIGHT: Weight (lb): 162 Weight (oz): 4.16 Weight (kg): 73.600 Medications: Active Meds + DC'd Last 24 Hrs Spironolactone (ALDACTONE) 12.5 MG DAILY PO Metoprolol Tartrate (LOPRESSOR) 25 MG Q12HR PO Melatonin (Melatonin) 6 MG BEDTIME PRN PRN PO Ipratropium [place] (ATROVENT) 500 MCG RTQ2H PRN PRN INH Cyanocobalamin (Vitamin B-12 500 mcg tab) 500 MCG DAILY PO Ferrous Sulfate (FERROUS SULFATE) 325 MG DAILY PO Bisacodyl (DULCOLAX) 10 MG ONCE PRN RECTAL Hydralazine HCl (APRESOLINE) 50 MG Q8H PRN PRN PO Amlodipine Besylate (NORVASC) 5 MG DAILY PO (DC) Clopidogrel Bisulfate (Plavix) 75 MG DAILY PO Polyethylene Glycol (MIRALAX) 17 GM DAILY PO Pantoprazole (PROTONIX) 40 MG DAILY@0600 PO Atorvastatin Calcium (LIPITOR) 40 MG 2100 PO Docusate Sodium (COLACE) 100 MG BID PO Sennosides (Senna Lax 8.6 MG TABLET) 17.2 MG BEDTIME PO Aspirin (ASPIRIN) 81 MG DAILY PO Amiodarone HCl (CORDARONE) 200 MG TID PO Acetaminophen (TYLENOL) 650 MG Q4H PRN PRN PO Acetaminophen (TYLENOL) 650 MG Q4H PRN PRN RECTAL Calcium Chloride (CALCIUM CHLORIDE) 1 GM ASDIR PRN IV (DC) Dextrose/Water (DEXTROSE 10% IN WATER) 125 ML ASDIR PRN IV (CKD) Dextrose/Water (DEXTROSE 10% IN WATER) 250 ML ASDIR PRN IV (CKD) Epinephrine (ADRENALIN CHLORIDE) 4 MG ASDIR IV (DC) Dextrose/Water (DEXTROSE 5% WATER) 246 ML Glucagon (GLUCAGON) 1 MG ASDIR PRN IM Insulin Human Regular (MYXREDLIN 100 UNITS/NS 100ML) 100 ML ASDIR IV (DC ) Magnesium Sulfate (MAGNESIUM SULFATE 4GM/SWFI 100ML) 100 ML ASDIR PRN IV Magnesium Sulfate (MAGNESIUM SULFATE 2GM/SWFI 50ML) 50 ML ASDIR PRN IV Magnesium Sulfate/Dextrose (MAGNESIUM SULFATE 1GM/D5W 100ML) 100 ML ASDIR PRN IV Nitroglycerin/Dextrose (NITROGLYCERIN 50,000MCG/D5W 250ML) 250 ML ASDIR IV (DC) Norepinephrine/Dextrose (Norepinephrine 8 MG/D5W 250 mL) 250 ML TITRATE IV (DC) Ondansetron HCl (ZOFRAN) 4 MG Q6H PRN PRN IV Oxycodone HCl (ROXICODONE) 5 MG Q4H PRN PRN PO (DC) Oxycodone HCl (ROXICODONE) 10 MG Q4H PRN PRN PO (DC) Potassium Chloride (KCL 20MEQ/SWFI 100ML) 100 ML ASDIR PRN IV (DC) Sodium Bicarbonate (SODIUM BICARBONATE) 50 MEQ ASDIR PRN IV (DC) Sodium Chloride (SODIUM CHLORIDE 0.9%) 250 ML Q24H IV Physical Exam Head/eyes: EOMI, PERRLA ENT: moist mucosal membranes Neck: non-tender, no JVD Cardiovascular: normal capillary refill, normal heart sounds, regular rate and rhythm Respiratory: aerating well, no distress Abdomen: soft, non-tender, no guarding Extremities: moves all, normal capillary refill 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: alert, oriented X 3, CNII-XII intact, normal speech, no motor deficits, no sensory deficits Results Findings/data: Laboratory Tests 10/27 225 Chemistry Sodium (134 - 147 mEq/L) 142 Potassium (3.4 - 5.0 mEq/L) 4.2 Chloride (100 - 108 mEq/L) 109 H Carbon Dioxide (21 - 33 mEq/l) 25 Anion Gap (0 - 20) 12 BUN (7 - 25 mg/dL) 18 Creatinine (0.6 - 1.3 mg/dL) 0.8 Glomerular Filtr Rate (80 - 90) 100.1 H Glucose (77 - 141 mg/dL) 108 Calcium (8.0 - 10.5 mg/dL) 8.0 Magnesium (1.6 - 2.6 mg/dL) 2.06 Laboratory Tests 10/27 225 Hematology WBC (4.5 - 11.0 x10 3/uL) 11.2 H RBC (4.00 - 5.60 x10 6/uL) 2.23 L Hgb (12.5 - 16.9 g/dL) 6.3 *L Hct (37.5 - 50.7 %) 20.4 L MCV (81.0 - 99.0 fL) 91.5 MCH (27.0 - 33.0 pg) 28.3 MCHC (33.0 - 37.0 g/dL) 30.9 L RDW (11.5 - 14.5 %) 14.6 H Plt Count (150 - 400 x10 3/uL) 373 MPV (7.0 - 9.0 fL) 9.1 H Neut % (Auto) (56.0 - 77.0 %) 64.2 Lymph % (Auto) (14.0 - 32.0 %) 19.4 [place] % (Auto) (4.8 - 9.0 %) 10.5 H Eos % (Auto) (0.3 - 3.7 %) 3.9 H Baso % (Auto) (0.0 - 2.0 %) 0.3 Neut # (Auto) (2.0 - 7.6 x10 3/uL) 7.21 Lymph # (Auto) (1.0 - 3.8 x10 3/uL) 2.18 [place] # (Auto) (0.1 - 0.8 x10 3/uL) 1.18 H Eos # (Auto) (0.0 - 0.2 x10 3/uL) 0.44 H Baso # (Auto) (0.0 - 0.2 x10 3/uL) 0.03 Abs Immat Gran (auto) (0.00 - 0.03 x10 3/uL) 0.19 H Immature Gran % (0.0 - 2.0 %) 1.7 Nucleated RBC % (0 - 0 %) 0.6 H Nucleated RBCs # (Man) (0.0 - 0.1 x10 3/uL) 0.07 Laboratory Tests 10/27/24 0225: [Embedded Image Not Available] Diagnosis, Assessment Plan Problem list/A P: 1. Chest pain 2. CAD (coronary artery disease) 3. S/P CABG x 4 4. Postoperative anemia Free text A P: Patient is a 63-year-old male with multivessel coronary artery disease that status post CABG x 4 Coronary disease NSTEMI CABG x 4 Bilateral EVH ALAA PP History of hypertension History of hyperlipidemia post op anemia 10/27 No issues overnight disposition planning. Plan Neuro: pain well-controlled Respiratory: On room air continue pulmonary hygiene, incentive spirometry, Cardiovascular: Continue adjusted dose beta-fletcher, amlodipine , PO amiodarone Renal: strict I/Os, GI: PPI, bowel regimen ID: trend WBC, no fever Hem: monitor Hgb, transfuse as needed. ASA/plavix Endo: Sliding scale insulin Misc: PTOT consult, DVT and GI ppx with SCD and PPI Consultants: cardiology Critical care time: Minutes: 35 at 1058 RPT #:[id number] END OF REPORT [facility] 2024-10-27 05:49:00 [facility] ([facility]) Cardiology Progress Note REPORT#:[id number] REPORT STATUS: Signed REPORT INITIALIZATION DATE:10/27/24 TIME: 05 PATIENT: CLEO LONG UNIT #: [id number] ROOM/BED: [place] [address] : 62 AGE: 63 SEX: M ATTEND: Shyla Zepeda MD ADM AUTHOR: Alec Norris MD REPT SERVICE DT/TIME: 10/27/24 0549 * ALL edits or amendments must be made on the electronic/computer document * Objective General VS/I O: 24 hour I O ending at 0700: 10/27 0700 10/26 1900 Intake Total 720 550 Output Total 725 825 Balance -5 -275 Intake, Oral 720 450 Intake, Oral 100 Supplement Number 0 1 Bowel Movements Number Voids 4 Output, Stool 0 Output, Urine 725 825 Vital Signs: Date Time Temp Pulse Resp B/P B/P Pulse O2 O2 Flow FiO2 Mean Ox Delivery Rate 10/26 2212 69 29 98 10/26 2201 72 28 157/70 101 98 10/26 2200 71 30 99 10/26 2130 72 24 143/77 103 100 10/26 2100 72 25 124/62 83 97 10/260 73 97 10/26 2031 73 30 98 10/26 2004 71 26 165/72 104 98 10/26 2000 36.9 10/26 2000 73 25 96 10/26 1942 73 29 167/76 113 99 10/26 1941 73 40 100 10/26 1930 74 31 100 10/26 1916 99 Room air 10/26 1901 75 33 160/76 109 99 10/26 1900 75 27 99 10/26 1831 74 21 108/74 87 100 10/26 1800 72 29 121/58 83 98 10/26 1701 73 28 155/72 103 98 10/26 1627 76 30 151/74 106 98 12/16 1500 67 23 98 10/26 1400 67 26 100 10/26 1304 67 153/67 97 100 10/26 1200 62 26 126/58 83 98 10/26 1112 63 22 125/59 85 98 10/26 1000 63 22 144/65 93 98 10/26 0900 59 118/65 87 97 10/26 0800 36.9 65 10/26 0800 68 165/79 111 98 10/26 0700 67 27 150/81 110 99 10/26 0623 67 17 99 10/26 0600 69 28 139/64 92 98 PATIENT WEIGHT: Weight (lb): 162 Weight (oz): 7.69 Weight (kg): 73.700 Medications: Active Meds + DC'd Last 24 Hrs Metoprolol Tartrate (LOPRESSOR) 25 MG Q12HR PO Melatonin (Melatonin) 6 MG BEDTIME PRN PRN PO Ipratropium [place] (ATROVENT) 500 MCG RTQ2H PRN PRN INH Cyanocobalamin (Vitamin B-12 500 mcg tab) 500 MCG DAILY PO Ferrous Sulfate (FERROUS SULFATE) 325 MG DAILY PO Bisacodyl (DULCOLAX) 10 MG ONCE PRN RECTAL Hydralazine HCl (APRESOLINE) 50 MG Q8H PRN PRN PO Amlodipine Besylate (NORVASC) 5 MG DAILY PO Clopidogrel Bisulfate (Plavix) 75 MG DAILY PO Polyethylene Glycol (MIRALAX) 17 GM DAILY PO Pantoprazole (PROTONIX) 40 MG DAILY@0600 PO Atorvastatin Calcium (LIPITOR) 40 MG 2100 PO Docusate Sodium (COLACE) 100 MG BID PO Sennosides (Senna Lax 8.6 MG TABLET) 17.2 MG BEDTIME PO Aspirin (ASPIRIN) 81 MG DAILY PO Amiodarone HCl (CORDARONE) 200 MG TID PO Acetaminophen (TYLENOL) 650 MG Q4H PRN PRN PO Acetaminophen (TYLENOL) 650 MG Q4H PRN PRN RECTAL Calcium Chloride (CALCIUM CHLORIDE) 1 GM ASDIR PRN IV Dextrose/Water (DEXTROSE 10% IN WATER) 125 ML ASDIR PRN IV (CKD) Dextrose/Water (DEXTROSE 10% IN WATER) 250 ML ASDIR PRN IV (CKD) Epinephrine (ADRENALIN CHLORIDE) 4 MG ASDIR IV Dextrose/Water (DEXTROSE 5% WATER) 246 ML Glucagon (GLUCAGON) 1 MG ASDIR PRN IM Insulin Human Regular (MYXREDLIN 100 UNITS/NS 100ML) 100 ML ASDIR IV ( CKD) Magnesium Sulfate (MAGNESIUM SULFATE 4GM/SWFI 100ML) 100 ML ASDIR PRN IV Magnesium Sulfate (MAGNESIUM SULFATE 2GM/SWFI 50ML) 50 ML ASDIR PRN IV Magnesium Sulfate/Dextrose (MAGNESIUM SULFATE 1GM/D5W 100ML) 100 ML ASDIR PRN IV Nitroglycerin/Dextrose (NITROGLYCERIN 50,000MCG/D5W 250ML) 250 ML ASDIR IV Norepinephrine/Dextrose (Norepinephrine 8 MG/D5W 250 mL) 250 ML TITRATE IV Ondansetron HCl (ZOFRAN) 4 MG Q6H PRN PRN IV Oxycodone HCl (ROXICODONE) 5 MG Q4H PRN PRN PO (DC) Oxycodone HCl (ROXICODONE) 10 MG Q4H PRN PRN PO (DC) Potassium Chloride (KCL 20MEQ/SWFI 100ML) 100 ML ASDIR PRN IV Sodium Bicarbonate (SODIUM BICARBONATE) 50 MEQ ASDIR PRN IV Sodium Chloride (SODIUM CHLORIDE 0.9%) 250 ML Q24H IV Physical Exam General appearance: alert, awake Cardiovascular: CV assessment: regular rate and rhythm, BP pulses = bilaterally, normal heart sounds, pedal pulses present, no ectopy, no heave, no murmur Respiratory: clear to auscultation Results Findings/Data: Laboratory Tests 10/27 225 Chemistry Sodium (134 - 147 mEq/L) 142 Potassium (3.4 - 5.0 mEq/L) 4.2 Chloride (100 - 108 mEq/L) 109 H Carbon Dioxide (21 - 33 mEq/l) 25 Anion Gap (0 - 20) 12 BUN (7 - 25 mg/dL) 18 Creatinine (0.6 - 1.3 mg/dL) 0.8 Glomerular Filtr Rate (80 - 90) 100.1 H Glucose (77 - 141 mg/dL) 108 Calcium (8.0 - 10.5 mg/dL) 8.0 Magnesium (1.6 - 2.6 mg/dL) 2.06 Laboratory Tests 10/27 225 Hematology WBC (4.5 - 11.0 x10 3/uL) 11.2 H RBC (4.00 - 5.60 x10 6/uL) 2.23 L Hgb (12.5 - 16.9 g/dL) 6.3 *L Hct (37.5 - 50.7 %) 20.4 L MCV (81.0 - 99.0 fL) 91.5 MCH (27.0 - 33.0 pg) 28.3 MCHC (33.0 - 37.0 g/dL) 30.9 L RDW (11.5 - 14.5 %) 14.6 H Plt Count (150 - 400 x10 3/uL) 373 MPV (7.0 - 9.0 fL) 9.1 H Neut % (Auto) (56.0 - 77.0 %) 64.2 Lymph % (Auto) (14.0 - 32.0 %) 19.4 [place] % (Auto) (4.8 - 9.0 %) 10.5 H Eos % (Auto) (0.3 - 3.7 %) 3.9 H Baso % (Auto) (0.0 - 2.0 %) 0.3 Neut # (Auto) (2.0 - 7.6 x10 3/uL) 7.21 Lymph # (Auto) (1.0 - 3.8 x10 3/uL) 2.18 [place] # (Auto) (0.1 - 0.8 x10 3/uL) 1.18 H Eos # (Auto) (0.0 - 0.2 x10 3/uL) 0.44 H Baso # (Auto) (0.0 - 0.2 x10 3/uL) 0.03 Abs Immat Gran (auto) (0.00 - 0.03 x10 3/uL) 0.19 H Immature Gran % (0.0 - 2.0 %) 1.7 Nucleated RBC % (0 - 0 %) 0.6 H Nucleated RBCs # (Man) (0.0 - 0.1 x10 3/uL) 0.07 Laboratory Tests 10/27 0225 Chemistry Magnesium (1.6 - 2.6 mg/dL) 2.06 Diagnosis, Assessment Plan Free Text DxA P Notes Free Text DxA P Notes: 1. CAD: Two-vessel, plan for CABG sometime next week. 2. Hyperlipidemia: Continue statin 3. Hypertension: Continue carvedilol s/p cabg today extubated chest tubes in place stable hemodynamics no symptoms clinically better 1. CAD: Two-vessel, plan for CABG sometime next week. 2. Hyperlipidemia: Continue statin 3. Hypertension: Continue carvedilol s/p cabg today extubated chest tubes in place stable hemodynamics no symptoms clinically better Patient alert, awake, oriented, reports pain improving. Labs reviewed, HGB 6.5, slightly improved-stable No tachycardia no signs of hemodynamic instability, replace electrolytes as needed Breathing comfortable on room air, encourage incentive spirometer use Normal sinus rhythm, epicardial pacing wires on standby-discontinue today, limited echocardiogram monitoring blood pressure, metoprolol 25mg BID, amlodipine 5mg daily, Tolerating cardiac diet, reports bowel movements Strict I's and O's and daily standing scale weight, weight trending down PT/OT, OOB for all meals, encourage ambulation DVT prophylaxis with SCDs, GI prophylaxis with PPI Bilateral extremity Dopplers negative for DVT Disposition: patient and family admitted they are not at one specific place living. Rehab consulted ambulate at 1901 RPT #:[id number] END OF REPORT [facility] 2024-10-26 13:27:00 [facility] ([facility] Hospitalist Progress Note REPORT#:[id number] REPORT STATUS: Signed REPORT INITIALIZATION DATE:10/26/24 TIME: 132 PATIENT: CLEO LONG UNIT #: [id number] ROOM/BED: [place] [address] : 61 AGE: 63 SEX: M ATTEND: Shyla Zepeda MD ADM AUTHOR: Sue John MD REPT SERVICE DT/TIME: 10/26/24 1327 * ALL edits or amendments must be made on the electronic/computer document * Subjective Chief complaint: he had bowel movement today . he is doing well . HPI: 63 years old male with PMH of HTN, CHF and CAD with 7 stents complaint of cp . pain did not radiate . he also found elevate troponin . he was transferred to the hospital from [facility] due to NSTEMI . no fever no cough no sob no edema no nausea no vomiting no rosalind pain no dysuria no dizziness no syncope no neurology deficit . Review of Systems All systems rev neg: except as noted Objective General VS/I O: Vital Signs: Date Time Temp Pulse Resp B/P B/P Pulse O2 O2 Flow FiO2 Mean Ox Delivery Rate 10/26 1304 67 153/67 97 100 12/16 1200 62 26 126/58 83 98 12/16 1112 63 22 125/59 85 98 12/16 1000 63 22 144/65 93 98 12/16 0900 59 118/65 87 97 12/16 0800 36.9 65 12/16 0800 68 165/79 111 98 /16 0700 67 27 150/81 110 99 /16 0623 67 17 99 12/16 0600 69 28 139/64 92 98 12/16 0531 71 28 151/72 104 98 12/16 0500 71 152/72 98 /16 0430 69 25 126/64 90 97 /16 0401 68 28 151/72 104 98 /16 0400 68 97 /16 0331 68 24 137/66 93 96 / 0326 95 Room air 21 10/26 0301 67 23 157/65 94 93 /16 0300 67 24 94 16 0251 66 26 94 /16 0230 65 23 126/59 85 95 /16 0201 68 32 112/58 80 98 /16 0200 68 36 96 /16 0130 69 28 129/66 91 95 /16 0100 69 35 128/89 100 96 /16 0031 64 28 115/60 81 96 /16 0028 64 29 96 / 0000 65 28 94 /15 2331 61 24 119/76 92 93 15 2300 66 28 103/55 76 93 15 2230 71 27 125/58 83 95 10/25 2201 73 124/62 87 92 15 2200 74 92 10/25 2130 69 22 118/58 84 95 10/25 2100 71 26 113/56 80 96 10/258 94 Room air 21 10/25 2030 70 22 145/64 92 96 10/25 2000 37.0 10/25 2000 70 25 126/60 87 97 10/25 1946 72 29 97 10/25 1931 72 35 113/60 82 95 10/25 1900 70 26 160/73 105 100 10/25 1835 70 38 142/67 97 93 10/25 1811 67 29 91 10/25 1800 64 22 153/67 97 98 24 hour I O ending at 0700: 10/26 0700 12/15 1900 Intake Total 580.00 240 Output Total 775 850 Balance -195.00 -610 Intake, IV 100.00 Intake, Oral 480 240 Number 0 Bowel Movements Output, Urine 775 850 Patient 73.7 kg Weight Weight Standing scale Measurement Method PATIENT WEIGHT: Weight (lb): 162 Weight (oz): 7.69 Weight (kg): 73.700 Medications: Active Meds + DC'd Last 24 Hrs Potassium Chloride (POTASSIUM CHLORIDE 20MEQ TAB.ER) 20 MEQ ONCE ONE PO (DC) Metoprolol Tartrate (LOPRESSOR) 25 MG Q12HR PO Melatonin (Melatonin) 6 MG BEDTIME PRN PRN PO Ipratropium [place] (ATROVENT) 500 MCG RTQ2H PRN PRN INH Cyanocobalamin (Vitamin B-12 500 mcg tab) 500 MCG DAILY PO Ferrous Sulfate (FERROUS SULFATE) 325 MG DAILY PO Bisacodyl (DULCOLAX) 10 MG ONCE PRN RECTAL Hydralazine HCl (APRESOLINE) 50 MG Q8H PRN PRN PO Amlodipine Besylate (NORVASC) 5 MG DAILY PO Clopidogrel Bisulfate (Plavix) 75 MG DAILY PO Polyethylene Glycol (MIRALAX) 17 GM DAILY PO Pantoprazole (PROTONIX) 40 MG DAILY@0600 PO Atorvastatin Calcium (LIPITOR) 40 MG 2100 PO Docusate Sodium (COLACE) 100 MG BID PO Sennosides (Senna Lax 8.6 MG TABLET) 17.2 MG BEDTIME PO Aspirin (ASPIRIN) 81 MG DAILY PO Amiodarone HCl (CORDARONE) 200 MG TID PO Acetaminophen (TYLENOL) 650 MG Q4H PRN PRN PO Acetaminophen (TYLENOL) 650 MG Q4H PRN PRN RECTAL Calcium Chloride (CALCIUM CHLORIDE) 1 GM ASDIR PRN IV Dextrose/Water (DEXTROSE 10% IN WATER) 125 ML ASDIR PRN IV (CKD) Dextrose/Water (DEXTROSE 10% IN WATER) 250 ML ASDIR PRN IV (CKD) Epinephrine (ADRENALIN CHLORIDE) 4 MG ASDIR IV Dextrose/Water (DEXTROSE 5% WATER) 246 ML Glucagon (GLUCAGON) 1 MG ASDIR PRN IM Insulin Human Regular (MYXREDLIN 100 UNITS/NS 100ML) 100 ML ASDIR IV ( CKD) Magnesium Sulfate (MAGNESIUM SULFATE 4GM/SWFI 100ML) 100 ML ASDIR PRN IV Magnesium Sulfate (MAGNESIUM SULFATE 2GM/SWFI 50ML) 50 ML ASDIR PRN IV Magnesium Sulfate/Dextrose (MAGNESIUM SULFATE 1GM/D5W 100ML) 100 ML ASDIR PRN IV Mupirocin (BACTROBAN 2% 22 GM OINTMENT) 1 APPLIC BID NASAL (DC) Nitroglycerin/Dextrose (NITROGLYCERIN 50,000MCG/D5W 250ML) 250 ML ASDIR IV Norepinephrine/Dextrose (Norepinephrine 8 MG/D5W 250 mL) 250 ML TITRATE IV Ondansetron HCl (ZOFRAN) 4 MG Q6H PRN PRN IV Oxycodone HCl (ROXICODONE) 5 MG Q4H PRN PRN PO (DC) Oxycodone HCl (ROXICODONE) 10 MG Q4H PRN PRN PO (DC) Potassium Chloride (KCL 20MEQ/SWFI 100ML) 100 ML ASDIR PRN IV Sodium Bicarbonate (SODIUM BICARBONATE) 50 MEQ ASDIR PRN IV Sodium Chloride (SODIUM CHLORIDE 0.9%) 250 ML Q24H IV Physical Exam General appearance: alert, awake, oriented Head/Eyes: atraumatic, normal conjunctiva/sclera, normal eyelids/periorb. Neck: full range of motion, non-tender, normal thyroid Cardiovascular: normal heart sounds, regular rate rhythm Respiratory: aerating well, clear to auscultation Abdomen: non-tender, normal bowel sounds, soft, no distention Extremities: moves all, no calf tenderness, no edema 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: alert, oriented X 3, CNII-XII intact, normal speech, no motor deficits, no sensory deficits Skin: dry, intact Psychiatry: normal affect, normal judgment/insight Results Findings/Data: Laboratory Tests 10/26 0236 Chemistry Sodium (134 - 147 mEq/L) 143 Potassium (3.4 - 5.0 mEq/L) 3.9 Chloride (100 - 108 mEq/L) 110 H Carbon Dioxide (21 - 33 mEq/l) 26 Anion Gap (0 - 20) 11 BUN (7 - 25 mg/dL) 19 Creatinine (0.6 - 1.3 mg/dL) 0.9 Glomerular Filtr Rate (80 - 90) 96.6 H Glucose (77 - 141 mg/dL) 124 Calcium (8.0 - 10.5 mg/dL) 7.8 L Magnesium (1.6 - 2.6 mg/dL) 2.09 Laboratory Tests 10/26 0236 Hematology WBC (4.5 - 11.0 x10 3/uL) 10.8 RBC (4.00 - 5.60 x10 6/uL) 2.25 L Hgb (12.5 - 16.9 g/dL) 6.5 L Hct (37.5 - 50.7 %) 21.4 L MCV (81.0 - 99.0 fL) 95.1 MCH (27.0 - 33.0 pg) 28.9 MCHC (33.0 - 37.0 g/dL) 30.4 L RDW (11.5 - 14.5 %) 14.4 Plt Count (150 - 400 x10 3/uL) 371 MPV (7.0 - 9.0 fL) 9.5 H Neut % (Auto) (56.0 - 77.0 %) 69.2 Lymph % (Auto) (14.0 - 32.0 %) 15.2 [place] % (Auto) (4.8 - 9.0 %) 10.0 H Eos % (Auto) (0.3 - 3.7 %) 4.1 H Baso % (Auto) (0.0 - 2.0 %) 0.5 Neut # (Auto) (2.0 - 7.6 x10 3/uL) 7.44 Lymph # (Auto) (1.0 - 3.8 x10 3/uL) 1.63 [place] # (Auto) (0.1 - 0.8 x10 3/uL) 1.08 H Eos # (Auto) (0.0 - 0.2 x10 3/uL) 0.44 H Baso # (Auto) (0.0 - 0.2 x10 3/uL) 0.05 Abs Immat Gran (auto) (0.00 - 0.03 x10 3/uL) 0.11 H Immature Gran % (0.0 - 2.0 %) 1.0 Nucleated RBC % (0 - 0 %) 0.4 H Nucleated RBCs # (Man) (0.0 - 0.1 x10 3/uL) 0.04 Diagnosis, Assessment Plan Consultants: cardiology Free Text DxA P Notes Free text DxA P notes: 63 YO male with CAD with stent Substance use HTN heart disease with HF Chronic systolic HF EF 35-39% Right carotid stenosis 50-69% anemia -- due to acute blood loss 10/15 tele cardiology consult continue ASA/plavix /lipitor CHF -- continue lasix and aldactone -- cozaar HTN- continue coreg 10/16- no cp no sob -- cath today -- post cath -- CABG evaluation 10/17 CABG next week, medically stable to proceed 10/18 CABG next week, Chest CT scan showed ? Pericardal effusion. stable to proceed 10/19 Vitals and labs stable today. No acute complaints. CABG later then week per surgeon. 10/20 labs and vitals remains stable. CABG later this week when surgery schedules. 10/22 S/P CABG 10/21. Continue postop care per CT surgery in ICU. Monitor chest tube OP. Monitor hgb, transfuse if hgb <7. S/P 1 unit PRBC. PT/OT for OOB. DC planning, possible SNF vs IPR. 10/23 Continue post-op care. PT/OT. Chest tubes out. Labs noted, CMP ok. Monitor Hgb and WBC. Rehab eval. 10/24- he sit on the chair no sob no dizziness -- he is hemodynamic stable -- HB-- 6.3- 6.1-- monitor H H --blood transfuse as CV surgeon and critical care --continue monitor in CV icu -- lab review 10/25 -- he had bowel movement . he is doing well . ambulate with PT -- he is hemodynamic stable -- H h -- 6.4- stable -- as cv surgeon -- continue PT/OT -- CM-- rehab or SNF placement at [address] [facility] #:[id number] END OF REPORT [facility] 2024-10-26 12:18:00 [id number] [address] PATIENT NAME: CLEO LONG ADMIT DATE: 10/14/24 ACCOUNT NO: [id number] ROOM NO: [id number] AGE: 63 REPORT TYPE: eECHOCARDIOGRAM REPORT SEX: M ADMITTING PHYSICIAN:Shyla Zepeda MD ATTENDING PHYSICIAN:Shyla Zepeda MD *[address] [place] [address] Limited Transthoracic Echocardiogram Patient: Cleo Long Study Date: 10/26/2024 BP: 117 / 56 URN: [id number] Location: : 1960 Age: 63 Gender: M Height: 70 in / 177.8 cm Weight: 162 lb / 73.5 kg BMI/BSA: 23.2 kg/m 2 / 1.91 m 2 *Ordering Physician: * Elicia Fishman Aprn *Interpreting Physician: * Alec Norris MD *Metal Stamping Machine Operator: * Belkis Frias [facility] Indications: R/O EFFUSION. Study data: Transthoracic echocardiogram, limited study. Procedure: A transthoracic echocardiogram was performed. Images were obtained using a [employer] cardiac ultrasound machine. Limited 2D and limited spectral Doppler. Location: ICU/CCU Patient status: Inpatient. Patient room number: 2202. Heart rate: 61 bpm. Findings Left ventricle: Systolic function is mildly reduced. Right ventricle: Systolic function is normal. Aortic valve: There is no evidence of stenosis. There is no regurgitation. Pericardium: A small to moderate pericardial effusion is identified anterior PATIENT NAME: CLEO LONG to the heart. Systemic veins: Inferior vena cava: The IVC is normal-sized. Respirophasic diameter changes are in the normal range (>= 50%). Measurements Right ventricle Value Ref TAPSE, MM 2.0 cm >=1.7 Conclusions Summary: 1. Left ventricle: Systolic function is mildly reduced. 2. Pericardium, extracardiac: A small to moderate pericardial effusion is identified anterior to the heart. Electronically signed by Alec Norris MD 10/26/2024 12:18 at 1218 PATIENT NAME: CLEO LONG [facility] 2024-10-26 11:14:00 [facility] ([facility] Heart Failure Consultation REPORT#:[id number] REPORT STATUS: Signed REPORT INITIALIZATION DATE:10/26/24 TIME: 1113 PATIENT: CLEO LONG UNIT #: [id number] ROOM/BED: [place] [address] : 62 AGE: 63 SEX: M ATTEND: Shyla Zepeda MD ADM AUTHOR: Doni Mcarthur NP REPT SERVICE DT/TIME: 10/26/24 1114 * ALL edits or amendments must be made on the electronic/computer document * Elena Mcarthur-katarina T 10/26/24 1114: History of Present Illness HPI Requesting Clinician: Dr Norris Reason for consult: HFrEF. Post op volume overload HPI: This is a 63 y.o male with medical history of HTN, CHF, CAD with 7 stents, who was transfered to [facility] on 10/14/24 from [facility] with NSTEMI. LHC was performed on 10/16/24, CABG was recommended. 10/21/24 the patient underwent CABG x4 (NIEVES-LAD, SVG-DIAG, SVG-OM1, SVG-Om2, ) Bilateral EVH, ALAA, PP. ECHO on 10/15/24- Pre-op LVEF 35-39% ECHO on 10/25/24- Post-op * Left ventricle: Systolic function is mildly reduced. * The IVC is normal-sized Currently, He is sitting in a chair, awake and alert, in good spirits, n/c; he reports was told CHF [address] Neal explained HFrEF, post-op expectation , monitoring for volume overload, and treatment plan. History - Adult longitudinal Past medical history: Reports: Congestive heart failure, Coronary artery disease, Hypertension. Additional surgical history: As mentioned in HPI Additional family history: Reviewed and noncontributory Smoking status for patients 13 years old or older: Current every day smoker Medications: Home Medications: Medication Dose/Rte/Freq Days Qty Entered Last Max Daily Dose Reviewed FUROSEMIDE (LASIX) 20 MG PO DAILY 10/15/24 10/15/24 Strength: 20 MG TAB 1054 1056 LOSARTAN 100 MG PO DAILY 10/15/24 10/15/24 Strength: 100 MG TAB 1054 1056 SPIRONOLACTONE 25 MG PO DAILY 10/15/24 10/15/24 (ALDACTONE) 1055 1056 Strength: 25 MG TAB ASPIRIN 81 MG PO DAILY 10/15/24 10/15/24 Strength: 81 MG TAB.CHEW 1055 1056 CARVEDILOL (carvediloL) 12.5 MG PO BID 10/15/24 10/15/24 Strength: 12.5 MG TAB 1055 1056 CLOPIDOGREL (PLAVIX) 75 MG PO DAILY 10/15/24 10/15/24 Strength: 75 MG TAB 1056 1056 ATORVASTATIN (LIPITOR) 80 MG PO BEDTIME 10/15/24 10/15/24 Strength: 80 MG TAB [id number] 8376 Current Hospital Medications: Ahfs Category Unknown Sig/Nia Start time Last Medication Dose Route Stop Time Status Admin Melatonin 6 MG BEDTIME PRN PRN 10/24 1900 AC 10/24 (Melatonin) PO 01/22 Autonomic Drugs Sig/Nia Start time Last Medication Dose Route Stop Time Status Admin Ipratropium [place] 500 MCG RTQ2H PRN PRN 10/24 1122 AC (ATROVENT) INH 01/22 1121 Epinephrine 4 MG ASDIR 10/21 1130 AC (ADRENALIN CHLORIDE) IV 01/19 1129 Dextrose/Water 246 ML (DEXTROSE 5% WATER) Norepinephrine/ 250 ML TITRATE 10/21 1130 AC Dextrose IV 01/19 1129 (Norepinephrine 8 MG/ D5W 250 mL) Blood Formation,Coagulation Sig/Nia Start time Last Medication Dose Route Stop Time Status Admin Ferrous Sulfate 325 MG DAILY 10/24 0900 AC 10/26 (FERROUS SULFATE) PO 01/22 0859 0746 Clopidogrel Bisulfate 75 MG DAILY 10/22 0900 AC 10/26 (Plavix) PO 01/20 0859 0748 Cardiovascular Drugs Sig/Nia Start time Last Medication Dose Route Stop Time Status Admin Metoprolol Tartrate 25 MG Q12HR 10/25 2100 AC 10/26 (LOPRESSOR) PO 01/21 0859 0747 Hydralazine HCl 50 MG Q8H PRN PRN 10/23 1030 AC (APRESOLINE) PO 01/21 1027 Amlodipine Besylate 5 MG DAILY 10/23 0900 AC 10/26 (NORVASC) PO 01/21 0859 0746 Atorvastatin Calcium 40 MG 2100 10/21 2100 AC 10/25 (LIPITOR) PO 11/20 2058 2030 Amiodarone HCl 200 MG TID 10/21 1500 AC 10/26 (CORDARONE) PO 01/19 1459 0748 Nitroglycerin/ 250 ML ASDIR 10/21 1130 AC 10/23 Dextrose IV 01/19 1129 0028 (NITROGLYCERIN 50,000MCG/D5W 250ML) Central Nervous System Agents Sig/Nia Start time Last Medication Dose Route Stop Time Status Admin Aspirin 81 MG DAILY 10/21 1722 AC 10/26 (ASPIRIN) PO 01/19 1721 0746 Acetaminophen 650 MG Q4H PRN PRN 10/21 1130 AC 10/25 (TYLENOL) PO 01/19 1129 0837 Acetaminophen 650 MG Q4H PRN PRN 10/21 1130 AC (TYLENOL) RECTAL 01/19 1129 Magnesium Sulfate 100 ML ASDIR PRN 10/21 1130 AC (MAGNESIUM SULFATE IV 01/19 1129 4GM/SWFI 100ML) Magnesium Sulfate 50 ML ASDIR PRN 10/21 1130 AC (MAGNESIUM SULFATE IV 01/19 1129 2GM/SWFI 50ML) Magnesium Sulfate/ 100 ML ASDIR PRN 10/21 1130 AC 10/26 Dextrose IV 01/19 1129 0549 (MAGNESIUM SULFATE 1GM/D5W 100ML) Oxycodone HCl 5 MG Q4H PRN PRN 10/21 1130 DC 10/24 (ROXICODONE) PO 10/26 1129 2040 Oxycodone HCl 10 MG Q4H PRN PRN 10/21 1130 DC 10/22 (ROXICODONE) PO 10/26 1129 1521 Electrolytic, Caloric, And Gail Sig/Nia Start time Last Medication Dose Route Stop Time Status Admin Potassium Chloride 20 MEQ ONCE ONE 10/26 0530 DC 10/26 (POTASSIUM CHLORIDE PO 10/26 0531 0549 20MEQ TAB.ER) Calcium Chloride 1 GM ASDIR PRN 10/21 1130 AC (CALCIUM CHLORIDE) IV 01/19 1129 Dextrose/Water 125 ML ASDIR PRN 10/21 1130 CKD (DEXTROSE 10% IN IV 01/19 1129 WATER) Dextrose/Water 250 ML ASDIR PRN 10/21 1130 CKD (DEXTROSE 10% IN IV 01/19 1129 WATER) Potassium Chloride 100 ML ASDIR PRN 10/21 1130 AC 10/24 (KCL 20MEQ/SWFI IV 01/19 1129 0316 100ML) Sodium Bicarbonate 50 MEQ ASDIR PRN 10/21 1130 AC (SODIUM BICARBONATE) IV 01/19 1129 Sodium Chloride 250 ML Q24H 10/21 1130 AC 10/24 (SODIUM CHLORIDE IV 01/19 1129 1130 0.9%) Gastrointestinal Drugs Sig/Nia Start time Last Medication Dose Route Stop Time Status Admin Bisacodyl 10 MG ONCE PRN 10/23 1200 AC 10/24 (DULCOLAX) RECTAL 01/21 1159 0424 Polyethylene Glycol 17 GM DAILY 10/22 0900 AC 10/25 (MIRALAX) PO 01/20 0859 0835 Pantoprazole 40 MG DAILY@0600 10/22 0600 AC 10/26 (PROTONIX) PO 01/20 0559 0549 Docusate Sodium 100 MG BID 10/21 2100 AC 10/26 (COLACE) PO 01/19 2059 0748 Sennosides 17.2 MG BEDTIME 10/21 2100 AC 10/24 (Senna Lax 8.6 MG PO 01/19 2059 2020 TABLET) Ondansetron HCl 4 MG Q6H PRN PRN 10/21 1130 AC (ZOFRAN) IV 01/19 1129 Hormones And Synthetic Substit Sig/Nia Start time Last Medication Dose Route Stop Time Status Admin Glucagon 1 MG ASDIR PRN 10/21 1130 AC (GLUCAGON) IM 01/19 1129 Insulin Human Regular 100 ML ASDIR 10/21 1130 CKD (MYXREDLIN 100 UNITS/ IV 01/19 1129 NS 100ML) Skin And Mucous Membrane Agent Sig/Nia Start time Last Medication Dose Route Stop Time Status Admin Mupirocin 1 APPLIC BID 10/21 1130 DC 10/25 (BACTROBAN 2% 22 GM NASAL 10/25 OINTMENT) Vitamins Sig/Nia Start time Last Medication Dose Route Stop Time Status Admin Cyanocobalamin 500 MCG DAILY 10/24 900 AC 10/26 (Vitamin B-12 500 PO 01/22 0859 0748 mcg tab) Allergies: Coded Allergies: No Known Allergies (10/14/24) Review of Systems Constitutional: Denies: fatigue, generalized weakness. Respiratory: Denies: SOB. Cardiovascular: Denies: chest pain, edema. GI: Denies: anorexia, nausea, vomiting. Neuro: Denies: dizziness, lightheaded. Psych: Denies: anxiety, stress. Objective Physical Exam VS/I O: Vital Signs: Date Time Temp Pulse Resp B/P B/P Pulse O2 O2 Flow FiO2 Mean Ox Delivery Rate 10/26 1304 67 153/67 97 100 10/26 1200 62 26 126/58 83 98 10/26 1112 63 22 125/59 85 98 10/26 1000 63 22 144/65 93 98 10/26 0900 59 118/65 87 97 10/26 0800 98.4 65 10/26 0800 68 165/79 111 98 12/16 0700 67 27 150/81 110 99 12/16 0623 67 17 99 12/16 0600 69 28 139/64 92 98 12/16 0531 71 28 151/72 104 98 12/16 0500 71 152/72 98 12/16 0430 69 25 126/64 90 97 12/16 0401 68 28 151/72 104 98 12/16 0400 68 97 12/16 0331 68 24 137/66 93 96 12/16 0326 95 Room air 21 12/16 0301 67 23 157/65 94 93 12/16 0300 67 24 94 12/16 0251 66 26 94 12/16 0230 65 23 126/59 85 95 12/16 0201 68 32 112/58 80 98 12/16 0200 68 36 96 12/16 0130 69 28 129/66 91 95 12/16 0100 69 35 128/89 100 96 12/16 0031 64 28 115/60 81 96 12/16 0028 64 29 96 12/16 0000 65 28 94 12/15 2331 61 24 119/76 92 93 12/15 2300 66 28 103/55 76 93 12/15 2230 71 27 125/58 83 95 12/15 2201 73 124/62 87 92 12/15 2200 74 92 12/15 2130 69 22 118/58 84 95 12/15 2100 71 26 113/56 80 96 12/15 2048 94 Room air 21 12/15 2030 70 22 145/64 92 96 12/15 1999 98.6 12/15 1999 70 25 126/60 87 97 12/15 1946 72 29 97 12/15 1931 72 35 113/60 82 95 12/15 1900 70 26 160/73 105 100 12/15 1835 70 38 142/67 97 93 12/15 1811 67 29 91 12/15 1800 64 22 153/67 97 98 12/15 1731 63 42 110/56 81 98 12/15 1700 65 26 128/64 89 98 12/15 1630 63 26 138/65 94 97 12/15 1626 63 24 97 12/15 1600 62 14 140/73 100 98 12/15 1530 60 12 143/64 92 98 12/15 1527 59 21 98 12/15 1500 59 15 133/58 83 97 12/15 1435 63 22 134/63 91 96 12/15 1416 60 22 144/65 94 98 12/15 1400 59 22 96 10/25 1330 57 27 114/60 80 96 24 hour I O ending at 0700: 10/26 0700 10/25 1900 Intake Total 580.00 240 Output Total 775 850 Balance -195.00 -610 Intake, IV 100.00 Intake, Oral 480 240 Number 0 Bowel Movements Output, Urine 775 850 Patient 162 lb Weight Weight Standing scale Measurement Method PATIENT WEIGHT: Weight (lb): 162 Weight (oz): 7.69 Weight (kg): 73.700 General appearance: alert, awake, oriented, no acute distress, pleasant, conversational, no respiratory distress Cardiovascular: regular rate and rhythm Respiratory: no distress Extremities: no edema 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: alert, oriented X 3, normal speech Skin: dry, normal color Psychiatry: normal affect, normal judgment/insight, normal mood Results Findings/Data: Laboratory Tests 10/26 1711 Chemistry Sodium (134 - 147 mEq/L) 143 Potassium (3.4 - 5.0 mEq/L) 3.9 Chloride (100 - 108 mEq/L) 110 H Carbon Dioxide (21 - 33 mEq/l) 26 Anion Gap (0 - 20) 11 BUN (7 - 25 mg/dL) 19 Creatinine (0.6 - 1.3 mg/dL) 0.9 Glomerular Filtr Rate (80 - 90) 96.6 H Glucose (77 - 141 mg/dL) 124 POC Glucose (70 - 110 MG/DL) 112 H Calcium (8.0 - 10.5 mg/dL) 7.8 L Magnesium (1.6 - 2.6 mg/dL) 2.09 Laboratory Tests 10/26 0236 Hematology WBC (4.5 - 11.0 x10 3/uL) 10.8 RBC (4.00 - 5.60 x10 6/uL) 2.25 L Hgb (12.5 - 16.9 g/dL) 6.5 L Hct (37.5 - 50.7 %) 21.4 L MCV (81.0 - 99.0 fL) 95.1 MCH (27.0 - 33.0 pg) 28.9 MCHC (33.0 - 37.0 g/dL) 30.4 L RDW (11.5 - 14.5 %) 14.4 Plt Count (150 - 400 x10 3/uL) 371 MPV (7.0 - 9.0 fL) 9.5 H Neut % (Auto) (56.0 - 77.0 %) 69.2 Lymph % (Auto) (14.0 - 32.0 %) 15.2 [place] % (Auto) (4.8 - 9.0 %) 10.0 H Eos % (Auto) (0.3 - 3.7 %) 4.1 H Baso % (Auto) (0.0 - 2.0 %) 0.5 Neut # (Auto) (2.0 - 7.6 x10 3/uL) 7.44 Lymph # (Auto) (1.0 - 3.8 x10 3/uL) 1.63 [place] # (Auto) (0.1 - 0.8 x10 3/uL) 1.08 H Eos # (Auto) (0.0 - 0.2 x10 3/uL) 0.44 H Baso # (Auto) (0.0 - 0.2 x10 3/uL) 0.05 Abs Immat Gran (auto) (0.00 - 0.03 x10 3/uL) 0.11 H Immature Gran % (0.0 - 2.0 %) 1.0 Nucleated RBC % (0 - 0 %) 0.4 H Nucleated RBCs # (Man) (0.0 - 0.1 x10 3/uL) 0.04 Laboratory Tests 10/26 0236 Chemistry Magnesium (1.6 - 2.6 mg/dL) 2.09 Radiology Data: Recent Impressions: ULTRASOUND - DUP VEIN AMBROSE 10/25 1724 Report Impression - Status: SIGNED Entered: 10/25/20242001 IMPRESSION:No evidence for deep venous thrombosis. Impression By: [email or web address] Alexia Sánchez M.D. RADIOLOGY - XR CHEST 1 V 10/26 0502 Report Impression - Status: SIGNED Entered: 10/26/2024 0919 impression: Interval removal right IJ central line. Postcardiac surgical changes with stable median sternotomy wires. Slightly improved appearance of left basilar airspace opacity, which likely represents a combination of small pleural effusion and mild to moderate atelectasis. Pneumonia should be excluded clinically. Right lung is grossly clear. No pneumothorax. Cardiomegaly mediastinal silhouette are stable. No evidence of pulmonary edema. No other remarkable changes compared to prior study. Impression By: [email or web address] - Jose Boykin D.O. Results: labs reviewed, vital signs reviewed, rhythm personally rev'd, current med profile rev'd Telemetry Interpretation: SR rate 64 Diagnosis, Assessment Plan Consultants: cardiology Free Text DxA P Notes Free Text DxA P Notes: This is a 63 y.o male with medical history of HTN, CHF, CAD with 7 stents, who was transfered to [facility] on 10/14/24 from [facility] with NSTEMI. LHC was performed on 10/16/24- two vessel CAD, CABG was recommended. 10/21/24 the patient underwent CABG x4 (NIEVES-LAD, SVG-DIAG, SVG-OM1, SVG-Om2) Bilateral EVH, ALAA, PP. ECHO on 10/15/24- Pre-op LVEF 35-39% ECHO on 10/25/24- Post-op * Left ventricle: Systolic function is mildly reduced. * The IVC is normal-sized [id number]% recommend to d/c norvasc and start on spironolactone 12.5mg po daily monitor for volume overload Maintain MAP 70-90 keep CVP 8-10 Strict I Os and daily standing weight Maintain K 4 and Mg 2 Trend CBC, BMP, Mg BP 124/59 SR rate 64 I O -800cc x24hrs GDMT: * Metoprolol Tartrate 12.5mg po Bid * Spironolactone 12.5mg po daily CAD/s/p CABG x4 (NIEVES-LAD, SVG-DIAG, SVG-OM1, SVG-Om2) con't Meds: Amiodarone, Plavix, ASA, Atorvastatin, Metoprolol tartrate con't PT/OT Hyperlipidemia: Continue statin Hypertension: Continue Metoprolol tartrate 25mg po bid Reid Neal 10/28/24 1220: Attestations Physician Attestation Agree w/findings plan: CAD/s/p CABG x 4 (NIEVES-LAD, SVG-DIAG, SVG-OM1, SVG-OM2,) ALAA HFrEF-acute on chronic Hypertension Hyperlipidemia Patient is hemodynamically stable Recommend stopping Norvasc and initiating spironolactone Patient is euvolemic-maintain I's and O's net even continue DAPT with aspirin and Plavix Continue metoprolol, Lipitor and amiodarone Maintain MAP 70-90 Maintain CVP 8-10 Strict I Os and daily standing weight Maintain K 4 and Mg 2 Trend CBC, BMP I agree with the history, physical, and the assessment and plan as outlined by Doni Mcarthur NP. I have personally seen and examined the patient independently, and reviewed the patient's history, exam, and all cardiac and laboratory data. I was present and supervised. Critical care time spent 35 minutes. at 1404 at 1304 RPT #:[id number] END OF REPORT [facility] 2024-10-26 07:39:00 [facility] Cardiothoracic Surgery Prog REPORT#:[id number] REPORT STATUS: Signed REPORT INITIALIZATION DATE:10/26/24 TIME: 738 PATIENT: CLEO LONG UNIT #: [id number] ROOM/BED: [place] [id number] : 61 AGE: 63 SEX: M ATTEND: Shyla Zepeda MD ADM AUTHOR: Elicia Fishman APRN REPT SERVICE DT/TIME: 10/26/24 0739 * ALL edits or amendments must be made on the electronic/computer document * General Post-op: day 5 Status post: 10/21/2024 1. Coronary artery bypass graft surgery x4 (NIEVES to LAD, saphenous vein to diagonal, saphenous vein to first marginal, saphenous vein to second marginal). 2. Amputation of left atrial appendage. 3. Endoscopic vein harvest independent bilateral greater saphenous vein. 4. Posterior pericardiotomy. Subjective Chief complaint: s/p CABG Review of Systems Constitutional: Reports: fatigue. Denies: chills, fever, generalized weakness. Skin: Denies: abrasion, contusion, ecchymosis. Allergy/Immun: Denies: allergic reaction, hives, rhinorrhea. Eyes: Denies: redness, itching, diplopia. Respiratory: Reports: BAIG (dyspnea on exertion). Denies: hemoptysis, non productive cough, pleuritic pain. Cardiovascular: Denies: chest pain, palpitations. GI: Denies: abdominal pain, nausea, vomiting. Heme: Denies: adenopathy, bleeding, bruising. Endocrine: Denies: cold intolerance, heat intolerance, polyphagia. Neuro: Denies: confusion, dizziness, seizure, syncope. All systems rev neg: except as marked Objective General VS/I O Last Documented: Result Date Time Pulse Ox 99 10/26 623 Pulse 67 10/26 623 Resp 17 10/26 623 B/P 139/64 10/26 600 B/P Mean 92 10/26 600 FiO2 21 10/26 032 O2 Delivery Room air 10/26 326 Temp 98.6 10/25 2000 O2 Flow Rate 3 10/23 1121 24 hour I O ending at 0700: 10/26 0700 10/25 1900 Intake Total 580.00 240 Output Total 775 850 Balance -195.00 -610 Intake, IV 100.00 Intake, Oral 480 240 Number 0 Bowel Movements Output, Urine 775 850 Patient 73.7 kg Weight Weight Standing scale Measurement Method PATIENT WEIGHT: Weight (lb): 162 Weight (oz): 7.69 Weight (kg): 73.700 Dietitian Nutrition assessment The data set between the solid lines has been imported from the dietitian's assessment. BMI Calculated: 23.3 Nutrition related diagnosis: Nutrition diagnosis details: Nutrition problem: No nutrition diagnosis Nutrition etiology: Nutrition signs and symptoms: Nutrition prescription: 1. continue current cardiac diet Dietitian name: Rubi Cai RD, AROLDO Assessment completed: 10/22/24 Physical Exam General appearance: alert, awake, oriented Wound/incision: Location: sternum Site condition: edges approximated, incision intact HEENT: anicteric, mucosal membranes moist, pupils reactive to light Neck: full range of motion, non-tender Cardiovascular: normal heart sounds, regular rate rhythm Respiratory: decreased breath sounds, wheezing, symmetric expansion, no distress Abdomen: soft, non-tender Genitourinary: no bladder distention, no flank pain Extremities: dry, moves all Musculoskeletal: full range of motion, painless range of motion 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: alert, oriented X 3 Skin: dry, intact Psychiatry: normal affect, normal mood Current Medications Medications: Active Meds + DC'd Last 24 Hrs Potassium Chloride (POTASSIUM CHLORIDE 20MEQ TAB.ER) 20 MEQ ONCE ONE PO (DC) Metoprolol Tartrate (LOPRESSOR) 25 MG Q12HR PO Furosemide (LASIX 20MG INJ) 20 MG ONCE ONE IV (DC) Furosemide (LASIX 20MG INJ) 20 MG ONCE ONE IV (DC) Melatonin (Melatonin) 6 MG BEDTIME PRN PRN PO Ipratropium [place] (ATROVENT) 500 MCG RTQ2H PRN PRN INH Cyanocobalamin (Vitamin B-12 500 mcg tab) 500 MCG DAILY PO Ferrous Sulfate (FERROUS SULFATE) 325 MG DAILY PO Bisacodyl (DULCOLAX) 10 MG ONCE PRN RECTAL Hydralazine HCl (APRESOLINE) 50 MG Q8H PRN PRN PO Amlodipine Besylate (NORVASC) 5 MG DAILY PO Metoprolol Tartrate (LOPRESSOR) 50 MG Q12HR PO (DC) Clopidogrel Bisulfate (Plavix) 75 MG DAILY PO Polyethylene Glycol (MIRALAX) 17 GM DAILY PO Pantoprazole (PROTONIX) 40 MG DAILY@0600 PO Atorvastatin Calcium (LIPITOR) 40 MG 2100 PO Docusate Sodium (COLACE) 100 MG BID PO Sennosides (Senna Lax 8.6 MG TABLET) 17.2 MG BEDTIME PO Aspirin (ASPIRIN) 81 MG DAILY PO Amiodarone HCl (CORDARONE) 200 MG TID PO Acetaminophen (TYLENOL) 650 MG Q4H PRN PRN PO Acetaminophen (TYLENOL) 650 MG Q4H PRN PRN RECTAL Calcium Chloride (CALCIUM CHLORIDE) 1 GM ASDIR PRN IV Dextrose/Water (DEXTROSE 10% IN WATER) 125 ML ASDIR PRN IV (CKD) Dextrose/Water (DEXTROSE 10% IN WATER) 250 ML ASDIR PRN IV (CKD) Epinephrine (ADRENALIN CHLORIDE) 4 MG ASDIR IV Dextrose/Water (DEXTROSE 5% WATER) 246 ML Glucagon (GLUCAGON) 1 MG ASDIR PRN IM Insulin Human Regular (MYXREDLIN 100 UNITS/NS 100ML) 100 ML ASDIR IV ( CKD) Magnesium Sulfate (MAGNESIUM SULFATE 4GM/SWFI 100ML) 100 ML ASDIR PRN IV Magnesium Sulfate (MAGNESIUM SULFATE 2GM/SWFI 50ML) 50 ML ASDIR PRN IV Magnesium Sulfate/Dextrose (MAGNESIUM SULFATE 1GM/D5W 100ML) 100 ML ASDIR PRN IV Mupirocin (BACTROBAN 2% 22 GM OINTMENT) 1 APPLIC BID NASAL (DC) Nitroglycerin/Dextrose (NITROGLYCERIN 50,000MCG/D5W 250ML) 250 ML ASDIR IV Norepinephrine/Dextrose (Norepinephrine 8 MG/D5W 250 mL) 250 ML TITRATE IV Ondansetron HCl (ZOFRAN) 4 MG Q6H PRN PRN IV Oxycodone HCl (ROXICODONE) 5 MG Q4H PRN PRN PO Oxycodone HCl (ROXICODONE) 10 MG Q4H PRN PRN PO Potassium Chloride (KCL 20MEQ/SWFI 100ML) 100 ML ASDIR PRN IV Sodium Bicarbonate (SODIUM BICARBONATE) 50 MEQ ASDIR PRN IV Sodium Chloride (SODIUM CHLORIDE 0.9%) 250 ML Q24H IV Results Findings/Data: Laboratory Tests 10/266 1711 Chemistry Sodium (134 - 147 mEq/L) 143 Potassium (3.4 - 5.0 mEq/L) 3.9 Chloride (100 - 108 mEq/L) 110 H Carbon Dioxide (21 - 33 mEq/l) 26 Anion Gap (0 - 20) 11 BUN (7 - 25 mg/dL) 19 Creatinine (0.6 - 1.3 mg/dL) 0.9 Glomerular Filtr Rate (80 - 90) 96.6 H Glucose (77 - 141 mg/dL) 124 POC Glucose (70 - 110 MG/DL) 112 H Calcium (8.0 - 10.5 mg/dL) 7.8 L Magnesium (1.6 - 2.6 mg/dL) 2.09 Laboratory Tests 10/26 0236 Hematology WBC (4.5 - 11.0 x10 3/uL) 10.8 RBC (4.00 - 5.60 x10 6/uL) 2.25 L Hgb (12.5 - 16.9 g/dL) 6.5 L Hct (37.5 - 50.7 %) 21.4 L MCV (81.0 - 99.0 fL) 95.1 MCH (27.0 - 33.0 pg) 28.9 MCHC (33.0 - 37.0 g/dL) 30.4 L RDW (11.5 - 14.5 %) 14.4 Plt Count (150 - 400 x10 3/uL) 371 MPV (7.0 - 9.0 fL) 9.5 H Neut % (Auto) (56.0 - 77.0 %) 69.2 Lymph % (Auto) (14.0 - 32.0 %) 15.2 [place] % (Auto) (4.8 - 9.0 %) 10.0 H Eos % (Auto) (0.3 - 3.7 %) 4.1 H Baso % (Auto) (0.0 - 2.0 %) 0.5 Neut # (Auto) (2.0 - 7.6 x10 3/uL) 7.44 Lymph # (Auto) (1.0 - 3.8 x10 3/uL) 1.63 [place] # (Auto) (0.1 - 0.8 x10 3/uL) 1.08 H Eos # (Auto) (0.0 - 0.2 x10 3/uL) 0.44 H Baso # (Auto) (0.0 - 0.2 x10 3/uL) 0.05 Abs Immat Gran (auto) (0.00 - 0.03 x10 3/uL) 0.11 H Immature Gran % (0.0 - 2.0 %) 1.0 Nucleated RBC % (0 - 0 %) 0.4 H Nucleated RBCs # (Man) (0.0 - 0.1 x10 3/uL) 0.04 Radiology data: Recent Impressions: RADIOLOGY - XR CHEST 1 V 10/25 0811 Report Impression - Status: SIGNED Entered: 10/25/2024 0858 IMPRESSION: Anticipated postsurgical changes of the chest with improving central congestion. Persistent retrocardiac opacity likely associated with atelectasis and associated small effusion. Small right effusion also suspected. Location: H2 Impression By: MandyKATimoteo Bradshaw M.D. ULTRASOUND - DUP VEIN AMBROSE 10/25 1724 Report Impression - Status: SIGNED Entered: 10/25/20242001 IMPRESSION:No evidence for deep venous thrombosis. Impression By: [email or web address] Alexia Sánchez M.D. Results: labs reviewed, vital signs stable, rythm personally rev'd, x-ray personally reviewed, current med profile rev'd Treatment Prophylaxis Treatment Prophylaxis CVC/PICC documentation: The data below has been imported from nursing documentation. Any exceptions have been noted below under Provider comments. CVC/PICC insertion date/time: No CVC/PICC Provider comments on imported nursing data: [] Quality: Trauma Gen Surg Current Medications Current medication review: Current Medications Sig/Nia Start time Last Medication Dose Route Stop Time Status Admin Aspirin 81 MG BEDTIME 10/15 2100 AC PO 01/13 2059 Acetaminophen 650 MG Q6H PRN PRN 10/15 1030 AC PO 01/13 1029 Clopidogrel Bisulfate 75 MG DAILY 10/15 1030 AC PO 01/13 1029 Morphine Sulfate 2 MG Q4H PRN PRN 10/15 1030 AC IV 10/20 1029 Ondansetron HCl 4 MG Q4H PRN PRN 10/15 1030 AC IV 01/13 1029 Albuterol/Ipratropium 3 ML X1ED STA 10/14 2127 DC 10/14 NEB 10/14 Aspirin 324 MG X1ED STA 10/14 2105 DC PO 10/14 2106 Home Medications: FUROSEMIDE (LASIX) 20 MG PO DAILY LOSARTAN 100 MG PO DAILY SPIRONOLACTONE (ALDACTONE) 25 MG PO DAILY ASPIRIN 81 MG PO DAILY CARVEDILOL (carvediloL) 12.5 MG PO BID CLOPIDOGREL (PLAVIX) 75 MG PO DAILY ATORVASTATIN (LIPITOR) 80 MG PO BEDTIME I attest that the foregoing medication list in the medical record is true, accurate, and complete to the best of my knowledge. Diagnosis, Assessment Plan Hospital course to date: This is a 63-year-old male with a past medical history of HTN, HLD, CHF and CAD with s/p 7 stents who presented with complaints of chest pain. The pain did not radiate. Labs include troponin of 71, and all other labs unremarkable. Patient was transferred to [facility] from [facility] due to NSTEMI. He denies recent fever, cough, shortness of breath, or edema. 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 Left circumflex large dominant vessel first obtuse marginal is patent has stents that looks fine another stent in the mid circumflex beyond the obtuse marginal that has 80 to 90% focal severe restenosis otherwise circumflex distally has diffuse disease distal disease. RCA small nondominant vessel. CV surgery consulted for evaluation of multi-vessel coronary artery disease. Dr. Ko has seen and examined the patient. Thank you for this kind consultation. Assessment/Plan: 1. Multi-vessel coronary artery disease s/p stents 2. Hypertension 3. Hyperlipidemia Patient not able to answer questions due to sedation effects following [facility] CABG workup initiated CT chest w/o contrast Vein mapping and marking Carotid US Urinalysis MRSA/MSSA Hemoglobin A1C Patient seen and examined by Dr. Ko. All questions answered. 10/17/24 Patient alert, awake, oriented, denies any chest pain Breathing comfortable on room air, encourage incentive spirometer teaching Labs and imaging reviewed Last dose of Plavix on 10/16, check platelet response to Plavix Urinalysis negative Hemoglobin A1c 5.[address] chest and MRSA/MSSA Carotid duplex shows 50 to 69% right internal carotid artery stenosis Vein mapping reviewed, veins not visualized on left knee and calf area Echocardiogram shows EF 35 to 39%, moderate to severe diffuse hypokinesis, grade 1 diastolic dysfunction, aortic valve thickening consistent with sclerosis, mild MR, small to moderate pericardial effusion Transfer to CVN 1 Further recommendations to follow Patient seen and examined by Dr. Ko, discussed plan of care with patient, questions were answered 10/18/24 Patient alert, awake, oriented, denies any chest pain Breathing comfortable on room air, encourage incentive spirometer teaching Labs and imaging reviewed, patient had positive drug screen amphetamines and cannabis, educated patient on drug cessation Last dose of Plavix on 10/16, check platelet response to Plavix-87 Urinalysis negative Hemoglobin A1c 5.[address] chest and MRSA/MSSA- Carotid duplex shows 50 to 69% right internal carotid artery stenosis Vein mapping reviewed, veins not visualized on left knee and calf area Echocardiogram shows EF 35 to 39%, moderate to severe diffuse hypokinesis, grade 1 diastolic dysfunction, aortic valve thickening consistent with sclerosis, mild MR, small to moderate pericardial effusion Plan for surgery in upcoming week once platelet response to Plavix improved Patient seen and examined by Dr. Ko, discussed plan of care with patient, questions were answered. 10/19/24 Patient alert, awake, oriented, denies any chest pain Breathing comfortable on room air, encourage incentive spirometer teaching Labs and imaging reviewed, patient had positive drug screen amphetamines and cannabis, educated patient on drug cessation Last dose of Plavix on 10/16, check platelet response to Plavix-87 - Repeat Platelet response and TEG tomorrow morning Urinalysis negative Hemoglobin A1c 5.3 CT chest completed, showing Cardiomegaly with a 2 cm thick pericardial effusion MRSA/MSSA negative Carotid duplex shows 50 to 69% right internal carotid artery stenosis Vein mapping reviewed, veins not visualized on left knee and calf area Echocardiogram shows EF 35 to 39%, moderate to severe diffuse hypokinesis, grade 1 diastolic dysfunction, aortic valve thickening consistent with sclerosis, mild MR, small to moderate pericardial effusion Plan for surgery later in the week once platelet response to Plavix has improved Patient seen and examined by Dr. Ko, discussed plan of care with patient, questions were answered. 10/20/24 Patient alert, awake, oriented, denies any chest pain Breathing comfortable on room air, encourage incentive spirometer teaching Labs and imaging reviewed, patient had positive drug screen amphetamines and cannabis, educated patient on drug cessation Last dose of Plavix on 10/16, check platelet response to Plavix-87 -Platelet response today is 109, TEG completed ADP % inhibition 20.6, ADP 59.4 Urinalysis negative Hemoglobin A1c 5.3 CT chest completed, showing Cardiomegaly with a 2 cm thick pericardial effusion MRSA/MSSA negative Carotid duplex shows 50 to 69% right internal carotid artery stenosis Vein mapping reviewed, veins not visualized on left knee and calf area Echocardiogram shows EF 35 to 39%, moderate to severe diffuse hypokinesis, grade 1 diastolic dysfunction, aortic valve thickening consistent with sclerosis, mild MR, small to moderate pericardial effusion PFTs to be completed tomorrow Surgery will be scheduled later this week. Patient seen and examined by Dr. Ko, discussed plan of care with patient, questions were answered. 10/21/24 Events occurred yesterday and overnight, where patient had went missing for a couple hours during the evening and then the family was found vaping in the patient's room. Dr. Ko discussed with the patient the expectations and rules that must be followed while in the hospital. The patient understands, and agreed that he would abstain from any drug use or smoking. A drug toxicology screen was completed, positive for Cannabinoids. Patient will benefit from surgical revascularization, Dr. Ko explained to the patient and family the need for coronary artery bypass graft surgery. He explained in detail the operation, risks involved, STS risk score calculator, benefits, alternatives, and complications. Patient acknowledges understanding and is agreeable to proceed, all questions were answered and consent is obtained. Patient is scheduled for coronary artery bypass graft surgery this afternoon. 1. Coronary artery bypass graft surgery x4 (NIEVES to LAD, saphenous vein to diagonal, saphenous vein to first marginal, saphenous vein to second marginal). 2. Amputation of left atrial appendage. 3. Endoscopic vein harvest independent bilateral greater saphenous vein. 4. Posterior pericardiotomy. 10/22/24 POD 1 Patient alert, awake, oriented, reports pain uncontrolled Labs reviewed, hemoglobin 7.6, given 1 unit of PRBC yesterday, replace electrolytes as needed, creatinine 1.1 H H at noon Breathing comfortably on RA, encourage incentive spirometer use and deep breathing, nebs, chest x-ray reviewed Chest tube outputs LP 260cc, MS 270cc overnight, keep in place and continue monitoring, will reassess after ambulation Normal sinus rhythm, epicardial pacing wires on standby, monitoring blood pressure, CVP 7 Advance diet as tolerated, nutritional supplements, bowel regimen, monitoring MARYAM Montiel, Urine output overnight 1020cc, strict I's O's, daily standing scale weights, +2428 24 hr- fluid balance PT/OT, OOB for all meals, encourage ambulation DVT prophylaxis with SCDs, GI prophylaxis with PPI Disposition: patient and family admitted yesterday they are not at one specific place living. Consult case management for possible SNF vs. rehab Continue supportive care ICC following Patient seen and examined by Dr. Ko. Discussed plan of care with patient, nurse and interdisciplinary team. All questions answered. 10/23/24 POD 2 Patient alert, awake, oriented, reports pain uncontrolled, on nitro gtt Labs reviewed, hgb 7.2, replace electrolytes as needed On 8L HFNC, wean as tolerated, encourage incentive spirometer use and deep breathing, nebs, chest x-ray reviewed Normal sinus rhythm, epicardial pacing wires on standby, monitoring blood pressure, increase BB to metoprolol 50mg BID, add amlodipine 5mg daily, CVP 8 Advance diet as tolerated, nutritional supplements, bowel regimen, monitoring BS Montiel, Urine output overnight 525cc, strict I's O's, daily standing scale weights, +479 24 hr- fluid balance, weight trending up PT/OT, OOB for all meals, encourage ambulation DVT prophylaxis with SCDs, GI prophylaxis with PPI Disposition: patient and family admitted they are not at one specific place living. Case management following, SNF vs. rehab Continue supportive care ICC followingJEFF Patient seen and examined by Dr. Ko. Discussed plan of care with patient, nurse and interdisciplinary team. All questions answered. 10/24/24 POD 3 Patient alert, awake, oriented, reports pain improving. Labs reviewed, HGB 6.1- Moniotr Closely, repeat H7H this afternoon. replace electrolytes as needed On 4L, wean as tolerated, encourage incentive spirometer use and deep breathing, nebs, chest x-ray reviewed Normal sinus rhythm, epicardial pacing wires on standby, monitoring blood pressure, metoprolol 50mg BID, add amlodipine 5mg daily, Advance diet as tolerated, nutritonal supplements, bowel regimen, monitoring BS PT/OT, OOB for all meals, encourage ambulation DVT prophylaxis with SCDs, GI prophylaxis with PPI Disposition: patient and family admitted they are not at one specific place living. Case management following, SNF vs. rehab Continue supportive care ICC following, Patient seen and examined by Dr. Ko. Discussed plan of care with patient, nurse and interdisciplinary team. All questions answered. No signs of hemodynamic instability. repeat H H this afternoon. Continue OOB walking. 10/25/24 POD 4 Patient alert, awake, oriented, reports pain improving. Labs reviewed, HGB 6.4, slightly improved. No tachycardia no signs of hemodynamic instability replace electrolytes as needed On room air Normal sinus rhythm, epicardial pacing wires on standby, monitoring blood pressure, metoprolol 50mg BID, add amlodipine 5mg daily, Tolerating diet, reports bowel movements PT/OT, OOB for all meals, encourage ambulation DVT prophylaxis with SCDs, GI prophylaxis with PPI Disposition: patient and family admitted they are not at one specific place living. Rehab consulted Case management following, will need SNF vs. rehab Continue supportive care Will obtain DVT studies Patient seen and examined by Dr. Ko. Discussed plan of care with patient, nurse and interdisciplinary team. All questions answered. No signs of hemodynamic instability. repeat H H this afternoon. Continue OOB walking. 10/26/24 POD 5 Patient alert, awake, oriented, reports pain improving. Labs reviewed, HGB 6.5, slightly improved-stable No tachycardia no signs of hemodynamic instability, replace electrolytes as needed Breathing comfortable on room air, encourage incentive spirometer use Normal sinus rhythm, epicardial pacing wires on standby-discontinue today, limited echocardiogram monitoring blood pressure, metoprolol 25mg BID, amlodipine 5mg daily, Tolerating cardiac diet, reports bowel movements Strict I's and O's and daily standing scale weight, weight trending down PT/OT, OOB for all meals, encourage ambulation DVT prophylaxis with SCDs, GI prophylaxis with PPI Bilateral extremity Dopplers negative for DVT Disposition: patient and family admitted they are not at one specific place living. Rehab consulted Case management following, will need SNF vs. rehab Continue supportive care Patient seen and examined by Dr. Ko. Discussed plan of care with patient, nurse and interdisciplinary team. All questions answered. Consultants: cardiology Code status: full code Plan discussed with: patient, collaborating MD, nurse, interdisc care team at 1043 at 2552 RPT #:[id number] END OF REPORT [facility] 2024-10-26 07:35:00 [facility] ([facility]) Critical Care Progress Note REPORT#:[id number] REPORT STATUS: Signed REPORT INITIALIZATION DATE:10/26/24 TIME: 734 PATIENT: CLEO LONG UNIT #: [id number] ROOM/BED: [place] [id number] : 61 AGE: 63 SEX: M ATTEND: Shyla Zepeda MD ADM AUTHOR: Rickey Kerr MD REPT SERVICE DT/TIME: 10/26/24 07 * ALL edits or amendments must be made on the electronic/computer document * Subjective Chief complaint: CAD HPI: Patient is a 63-year-old male with past medical history of hypertension, hyperlipidemia, CHF and coronary artery disease with 7 previous stents. Patient presented with chest pain. His left heart cath on the sixth that showed multivessel coronary artery disease. He underwent CABG x 4 today with CV surgery. He is not the CVICU for postoperative care. His postoperative echo had an EF of 50% on epi of 3. He was also on vasopressin 0.02 and on small dose of norepinephrine. He received 1 L of crystalloid intraoperatively and 250 of Cell Saver. He also received 2 units of platelets and 2 FFP. Currently sinus rhythm in the 60s and quickly titrating down on drips. Sedation is off. His paralytic was reversed. He was started on spontaneous breathing trial. Postop labs, EKG, chest x-ray pending. He is noted to have increased output out of his mediastinal drain. He put out 130 of sanguinous output in 1 hour. Tag sent and will give another FFP and platelet. 10/22: Patient seen and evaluated bedside. No acute events overnight. Is on room air. Started on nitro for high blood pressure this morning. Complaining of pain at chest tube site 10/23: Patient seen and evaluated bedside. No acute events overnight. Remains on nitro infusion for hypertension. Is on 3 L nasal cannula. Pain is better controlled. Will increase beta-fletcher today and start amlodipine. 10/24 Seen evaluated this morning. Patient's been doing fairly well. Of any drips. On room air. Pain is well-controlled. H H trended downwards with a hemoglobin of 6.3 this morning from 7.2. No signs of active bleeding. No tachycardia blood pressure stable's. Discussed with cardiac surgery at this time we will be watching only unless there is any changes in hemodynamics. Patient feels okay ambulating. Did have a large liquid bowel movement. Hemoccult has been sent. No fevers. 10/25 Seen evaluated this morning doing fairly well no issues room air H H remained stable. Tolerating well p.o. intake. Will do gentle diuresis. Hemoccult negative. Disposition planning started. 10/26 Seen evaluated this morning no significant issues overnight. His beta-fletcher was cut down due to bradycardia yesterday. Awake and alert on room air. Discussion held today may need some rehab awaiting disposition planning otherwise H H remained stable. Objective General VS/I O Last Documented: Result Date Time Pulse Ox 98 10/26 1000 B/P 144/65 10/26 1000 B/P Mean 93 10/26 1000 Pulse 63 10/26 1000 Resp 22 10/26 1000 Temp 98.4 10/26 0800 FiO2 21 10/26 0326 O2 Delivery Room air 10/26 0326 O2 Flow Rate 3 10/23 1121 24 hour I O ending at 0700: 10/26 0700 10/25 1900 Intake Total 580.00 240 Output Total 775 850 Balance -195.00 -610 Intake, IV 100.00 Intake, Oral 480 240 Number 0 Bowel Movements Output, Urine 775 850 Patient 73.7 kg Weight Weight Standing scale Measurement Method PATIENT WEIGHT: Weight (lb): 162 Weight (oz): 7.69 Weight (kg): 73.700 Medications: Active Meds + DC'd Last 24 Hrs Potassium Chloride (POTASSIUM CHLORIDE 20MEQ TAB.ER) 20 MEQ ONCE ONE PO (DC) Metoprolol Tartrate (LOPRESSOR) 25 MG Q12HR PO Melatonin (Melatonin) 6 MG BEDTIME PRN PRN PO Ipratropium [place] (ATROVENT) 500 MCG RTQ2H PRN PRN INH Cyanocobalamin (Vitamin B-12 500 mcg tab) 500 MCG DAILY PO Ferrous Sulfate (FERROUS SULFATE) 325 MG DAILY PO Bisacodyl (DULCOLAX) 10 MG ONCE PRN RECTAL Hydralazine HCl (APRESOLINE) 50 MG Q8H PRN PRN PO Amlodipine Besylate (NORVASC) 5 MG DAILY PO Metoprolol Tartrate (LOPRESSOR) 50 MG Q12HR PO (DC) Clopidogrel Bisulfate (Plavix) 75 MG DAILY PO Polyethylene Glycol (MIRALAX) 17 GM DAILY PO Pantoprazole (PROTONIX) 40 MG DAILY@0600 PO Atorvastatin Calcium (LIPITOR) 40 MG 2100 PO Docusate Sodium (COLACE) 100 MG BID PO Sennosides (Senna Lax 8.6 MG TABLET) 17.2 MG BEDTIME PO Aspirin (ASPIRIN) 81 MG DAILY PO Amiodarone HCl (CORDARONE) 200 MG TID PO Acetaminophen (TYLENOL) 650 MG Q4H PRN PRN PO Acetaminophen (TYLENOL) 650 MG Q4H PRN PRN RECTAL Calcium Chloride (CALCIUM CHLORIDE) 1 GM ASDIR PRN IV Dextrose/Water (DEXTROSE 10% IN WATER) 125 ML ASDIR PRN IV (CKD) Dextrose/Water (DEXTROSE 10% IN WATER) 250 ML ASDIR PRN IV (CKD) Epinephrine (ADRENALIN CHLORIDE) 4 MG ASDIR IV Dextrose/Water (DEXTROSE 5% WATER) 246 ML Glucagon (GLUCAGON) 1 MG ASDIR PRN IM Insulin Human Regular (MYXREDLIN 100 UNITS/NS 100ML) 100 ML ASDIR IV ( CKD) Magnesium Sulfate (MAGNESIUM SULFATE 4GM/SWFI 100ML) 100 ML ASDIR PRN IV Magnesium Sulfate (MAGNESIUM SULFATE 2GM/SWFI 50ML) 50 ML ASDIR PRN IV Magnesium Sulfate/Dextrose (MAGNESIUM SULFATE 1GM/D5W 100ML) 100 ML ASDIR PRN IV Mupirocin (BACTROBAN 2% 22 GM OINTMENT) 1 APPLIC BID NASAL (DC) Nitroglycerin/Dextrose (NITROGLYCERIN 50,000MCG/D5W 250ML) 250 ML ASDIR IV Norepinephrine/Dextrose (Norepinephrine 8 MG/D5W 250 mL) 250 ML TITRATE IV Ondansetron HCl (ZOFRAN) 4 MG Q6H PRN PRN IV Oxycodone HCl (ROXICODONE) 5 MG Q4H PRN PRN PO Oxycodone HCl (ROXICODONE) 10 MG Q4H PRN PRN PO Potassium Chloride (KCL 20MEQ/SWFI 100ML) 100 ML ASDIR PRN IV Sodium Bicarbonate (SODIUM BICARBONATE) 50 MEQ ASDIR PRN IV Sodium Chloride (SODIUM CHLORIDE 0.9%) 250 ML Q24H IV Physical Exam Head/eyes: EOMI, PERRLA ENT: moist mucosal membranes Neck: non-tender, no JVD Cardiovascular: normal capillary refill, normal heart sounds, regular rate and rhythm Respiratory: aerating well, no distress Abdomen: soft, non-tender, no guarding Extremities: moves all, normal capillary refill 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: alert, oriented X 3, CNII-XII intact, normal speech, no motor deficits, no sensory deficits Results Findings/data: Laboratory Tests 10/26 1711 Chemistry Sodium (134 - 147 mEq/L) 143 Potassium (3.4 - 5.0 mEq/L) 3.9 Chloride (100 - 108 mEq/L) 110 H Carbon Dioxide (21 - 33 mEq/l) 26 Anion Gap (0 - 20) 11 BUN (7 - 25 mg/dL) 19 Creatinine (0.6 - 1.3 mg/dL) 0.9 Glomerular Filtr Rate (80 - 90) 96.6 H Glucose (77 - 141 mg/dL) 124 POC Glucose (70 - 110 MG/DL) 112 H Calcium (8.0 - 10.5 mg/dL) 7.8 L Magnesium (1.6 - 2.6 mg/dL) 2.09 Laboratory Tests 10/266 Hematology WBC (4.5 - 11.0 x10 3/uL) 10.8 RBC (4.00 - 5.60 x10 6/uL) 2.25 L Hgb (12.5 - 16.9 g/dL) 6.5 L Hct (37.5 - 50.7 %) 21.4 L MCV (81.0 - 99.0 fL) 95.1 MCH (27.0 - 33.0 pg) 28.9 MCHC (33.0 - 37.0 g/dL) 30.4 L RDW (11.5 - 14.5 %) 14.4 Plt Count (150 - 400 x10 3/uL) 371 MPV (7.0 - 9.0 fL) 9.5 H Neut % (Auto) (56.0 - 77.0 %) 69.2 Lymph % (Auto) (14.0 - 32.0 %) 15.2 [place] % (Auto) (4.8 - 9.0 %) 10.0 H Eos % (Auto) (0.3 - 3.7 %) 4.1 H Baso % (Auto) (0.0 - 2.0 %) 0.5 Neut # (Auto) (2.0 - 7.6 x10 3/uL) 7.44 Lymph # (Auto) (1.0 - 3.8 x10 3/uL) 1.63 [place] # (Auto) (0.1 - 0.8 x10 3/uL) 1.08 H Eos # (Auto) (0.0 - 0.2 x10 3/uL) 0.44 H Baso # (Auto) (0.0 - 0.2 x10 3/uL) 0.05 Abs Immat Gran (auto) (0.00 - 0.03 x10 3/uL) 0.11 H Immature Gran % (0.0 - 2.0 %) 1.0 Nucleated RBC % (0 - 0 %) 0.4 H Nucleated RBCs # (Man) (0.0 - 0.1 x10 3/uL) 0.04 Laboratory Tests 10/26/24 0236: [Embedded Image Not Available] Microbiology: 10/24 0815 Stool: Occult Blood - COMP Radiology data Recent Impressions: ULTRASOUND - DUP VEIN AMBROSE 10/25 1724 Report Impression - Status: SIGNED Entered: 10/25/20242001 IMPRESSION:No evidence for deep venous thrombosis. Impression By: [email or web address] Alexia Sánchez M.D. RADIOLOGY - XR CHEST 1 V 10/26 0502 Report Impression - Status: SIGNED Entered: 10/26/2024 0919 impression: Interval removal right IJ central line. Postcardiac surgical changes with stable median sternotomy wires. Slightly improved appearance of left basilar airspace opacity, which likely represents a combination of small pleural effusion and mild to moderate atelectasis. Pneumonia should be excluded clinically. Right lung is grossly clear. No pneumothorax. Cardiomegaly mediastinal silhouette are stable. No evidence of pulmonary edema. No other remarkable changes compared to prior study. Impression By: [email or web address] - Jose Boykin D.O. Diagnosis, Assessment Plan Problem list/A P: 1. Chest pain 2. CAD (coronary artery disease) 3. S/P CABG x 4 4. Postoperative anemia Free text A P: Patient is a 63-year-old male with multivessel coronary artery disease that status post CABG x 4 Coronary disease NSTEMI CABG x 4 Bilateral EVH ALAA PP History of hypertension History of hyperlipidemia post op anemia 10/26 No issues overnight was a little bradycardic but asymptomatic. Beta-fletcher was cut down in half will monitor closely H H remained stable no signs of active bleeding disposition planning. Plan Neuro:multimodal pain control pain well-controlled Respiratory: Pulmonary hygiene, incentive spirometry, Cardiovascular: Continue adjusted dose beta-fletcher, amlodipine , PO amiodarone Renal: strict I/Os, monitor Cr and electrolytes, GI: PPI, advance diet, bowel regimen ID: trend WBC, cont periop ABx per protocol Hem: monitor Hgb, transfuse as needed. ASA/plavix when able. Endo: Sliding scale insulin Misc: PTOT consult, DVT and GI ppx with SCD and PPI Consultants: cardiology Critical care time: Minutes: 35 at 1041 RPT #:[id number] END OF REPORT [facility] 2024-10-26 06:34:00 [facility] ([facility]) Adult General Consultation REPORT#:[id number] REPORT STATUS: Signed REPORT INITIALIZATION DATE:10/26/24 TIME: 633 PATIENT: CLEO LONG UNIT #: [id number] ROOM/BED: [place] [id number] : [birth year] AGE: 63 SEX: M ATTEND: Shyla Zepeda MD ADM AUTHOR: Mitch Bell REPT SERVICE DT/TIME: 10/26/24 0634 * ALL edits or amendments must be made on the electronic/computer document * History of Present Illness Reason for consult: PMR consultation Chief complaint: Weakness Free Text HPI Notes Free Text HPI Notes: This is a 63-year-old male with a past medical history of HTN, HLD, CHF and CAD with s/p 7 stents who presented with complaints of chest pain. The pain did not radiate. Labs include troponin of 71, and all other labs unremarkable. Patient was transferred to [facility] from [facility] due to NSTEMI. He denies recent fever, cough, shortness of breath, or edema. Patient had heart cath which revealed multivessel CAD. CV surgery consulted and patient had CABG x 4. He is weak postop. We have been asked to see patient in consultation for physical medicine and rehabilitation evaluation. History - Adult longitudinal Past medical history: Reports: Congestive heart failure, Coronary artery disease, Hypertension. Additional surgical history: As mentioned in HPI Additional family history: Reviewed and noncontributory Smoking status for patients 13 years old or older: Current every day smoker Medications: Home Medications: Medication Dose/Rte/Freq Days Qty Entered Last Max Daily Dose Reviewed FUROSEMIDE (LASIX) 20 MG PO DAILY 10/15/24 10/15/24 Strength: 20 MG TAB 1054 1056 LOSARTAN 100 MG PO DAILY 10/15/24 10/15/24 Strength: 100 MG TAB 1054 1056 SPIRONOLACTONE 25 MG PO DAILY 10/15/24 10/15/24 (ALDACTONE) 1055 1056 Strength: 25 MG TAB ASPIRIN 81 MG PO DAILY 10/15/24 10/15/24 Strength: 81 MG TAB.CHEW 1055 1056 CARVEDILOL (carvediloL) 12.5 MG PO BID 10/15/24 10/15/24 Strength: 12.5 MG TAB 1055 1056 CLOPIDOGREL (PLAVIX) 75 MG PO DAILY 10/15/24 10/15/24 Strength: 75 MG TAB 1056 1056 ATORVASTATIN (LIPITOR) 80 MG PO BEDTIME 10/15/24 10/15/24 Strength: 80 MG TAB 1056 1056 Current Hospital Medications: Ahfs Category Unknown Sig/Nia Start time Last Medication Dose Route Stop Time Status Admin Melatonin 6 MG BEDTIME PRN PRN 10/24 1900 AC 10/24 (Melatonin) PO 01/22 Autonomic Drugs Sig/Nia Start time Last Medication Dose Route Stop Time Status Admin Ipratropium [place] 500 MCG RTQ2H PRN PRN 10/24 1122 AC (ATROVENT) INH 01/22 1121 Epinephrine 4 MG ASDIR 10/21 1130 AC (ADRENALIN CHLORIDE) IV 01/19 1129 Dextrose/Water 246 ML (DEXTROSE 5% WATER) Norepinephrine/ 250 ML TITRATE 10/21 1130 AC Dextrose IV 01/19 1129 (Norepinephrine 8 MG/ D5W 250 mL) Blood Formation,Coagulation Sig/Nia Start time Last Medication Dose Route Stop Time Status Admin Ferrous Sulfate 325 MG DAILY 10/24 0900 AC 10/25 (FERROUS SULFATE) PO 01/22 0859 0837 Clopidogrel Bisulfate 75 MG DAILY 10/22 0900 AC 10/25 (Plavix) PO 01/20 0859 0837 Cardiovascular Drugs Sig/Nia Start time Last Medication Dose Route Stop Time Status Admin Metoprolol Tartrate 25 MG Q12HR 10/25 2100 AC 10/25 (LOPRESSOR) PO 01/21 0859 2030 Hydralazine HCl 50 MG Q8H PRN PRN 10/23 1030 AC (APRESOLINE) PO 01/21 1027 Amlodipine Besylate 5 MG DAILY 10/23 0900 AC 10/25 (NORVASC) PO 01/21 0859 0836 Metoprolol Tartrate 50 MG Q12HR 10/23 0900 DC 10/25 (LOPRESSOR) PO 01/20 2059 0836 Atorvastatin Calcium 40 MG 2100 10/21 2100 AC 10/25 (LIPITOR) PO 11/20 2058 2030 Amiodarone HCl 200 MG TID 10/21 1500 AC 10/25 (CORDARONE) PO 01/19 145 2030 Nitroglycerin/ 250 ML ASDIR 10/21 1130 AC 10/23 Dextrose IV 01/19 112 0028 (NITROGLYCERIN 50,000MCG/D5W 250ML) Central Nervous System Agents Sig/Nia Start time Last Medication Dose Route Stop Time Status Admin Aspirin 81 MG DAILY 10/21 1722 AC 10/25 (ASPIRIN) PO 01/19 1721 0837 Acetaminophen 650 MG Q4H PRN PRN 10/21 1130 AC 10/25 (TYLENOL) PO 01/19 1129 0837 Acetaminophen 650 MG Q4H PRN PRN 10/21 1130 AC (TYLENOL) RECTAL 01/19 1129 Magnesium Sulfate 100 ML ASDIR PRN 10/21 1130 AC (MAGNESIUM SULFATE IV 01/19 1129 4GM/SWFI 100ML) Magnesium Sulfate 50 ML ASDIR PRN 10/21 1130 AC (MAGNESIUM SULFATE IV 01/19 1129 2GM/SWFI 50ML) Magnesium Sulfate/ 100 ML ASDIR PRN 10/21 1130 AC 10/26 Dextrose IV 01/19 1129 0549 (MAGNESIUM SULFATE 1GM/D5W 100ML) Oxycodone HCl 5 MG Q4H PRN PRN 10/21 1130 AC 10/24 (ROXICODONE) PO 10/26 1129 2040 Oxycodone HCl 10 MG Q4H PRN PRN 10/21 1130 AC 10/22 (ROXICODONE) PO 10/26 1129 1521 Electrolytic, Caloric, And Gail Sig/Nia Start time Last Medication Dose Route Stop Time Status Admin Potassium Chloride 20 MEQ ONCE ONE 10/26 0530 DC 10/26 (POTASSIUM CHLORIDE PO 10/26 0531 0549 20MEQ TAB.ER) Furosemide 20 MG ONCE ONE 10/25 0815 DC (LASIX 20MG INJ) IV 10/25 0816 Furosemide 20 MG ONCE ONE 10/25 0800 DC 10/25 (LASIX 20MG INJ) IV 10/25 0801 0838 Calcium Chloride 1 GM ASDIR PRN 10/21 1130 AC (CALCIUM CHLORIDE) IV 01/19 1129 Dextrose/Water 125 ML ASDIR PRN 10/21 1130 CKD (DEXTROSE 10% IN IV 01/19 1129 WATER) Dextrose/Water 250 ML ASDIR PRN 10/21 1130 CKD (DEXTROSE 10% IN IV 01/19 1129 WATER) Potassium Chloride 100 ML ASDIR PRN 10/21 1130 AC 10/24 (KCL 20MEQ/SWFI IV 01/19 1129 0316 100ML) Sodium Bicarbonate 50 MEQ ASDIR PRN 10/21 1130 AC (SODIUM BICARBONATE) IV 01/19 1129 Sodium Chloride 250 ML Q24H 10/21 1130 AC 10/24 (SODIUM CHLORIDE IV 01/19 1129 1130 0.9%) Gastrointestinal Drugs Sig/Nia Start time Last Medication Dose Route Stop Time Status Admin Bisacodyl 10 MG ONCE PRN 10/23 1200 AC 10/24 (DULCOLAX) RECTAL 01/21 1159 0424 Polyethylene Glycol 17 GM DAILY 10/22 0900 AC 10/25 (MIRALAX) PO 01/20 0859 0835 Pantoprazole 40 MG DAILY@0600 10/22 0600 AC 10/26 (PROTONIX) PO 01/20 0559 0549 Docusate Sodium 100 MG BID 10/21 2100 AC 10/25 (COLACE) PO 01/19 2059 0837 Sennosides 17.2 MG BEDTIME 10/21 2100 AC 10/24 (Senna Lax 8.6 MG PO 01/19 2059 2020 TABLET) Ondansetron HCl 4 MG Q6H PRN PRN 10/21 1130 AC (ZOFRAN) IV 01/19 1129 Hormones And Synthetic Substit Sig/Nia Start time Last Medication Dose Route Stop Time Status Admin Glucagon 1 MG ASDIR PRN 10/21 1130 AC (GLUCAGON) IM 01/19 1129 Insulin Human Regular 100 ML ASDIR 10/21 1130 CKD (MYXREDLIN 100 UNITS/ IV 01/19 1129 NS 100ML) Skin And Mucous Membrane Agent Sig/Nia Start time Last Medication Dose Route Stop Time Status Admin Mupirocin 1 APPLIC BID 10/21 1130 DC 10/25 (BACTROBAN 2% 22 GM NASAL 10/25 210 2030 OINTMENT) Vitamins Sig/Nia Start time Last Medication Dose Route Stop Time Status Admin Cyanocobalamin 500 MCG DAILY 10/24 0900 AC 10/24 (Vitamin B-12 500 PO 01/22 0859 0829 mcg tab) Allergies: Coded Allergies: No Known Allergies (10/14/24) Review of Systems Constitutional: generalized weakness. All systems rev neg: except as marked Objective VS/I O: Last Documented: Result Date Time Pulse Ox 99 10/26 06 Pulse 67 10/26 0623 Resp 17 10/26 0623 B/P 139/64 10/26 0600 B/P Mean 92 10/26 0600 FiO2 21 10/26 0326 O2 Delivery Room air 10/26 0326 Temp 98.6 10/25 2000 O2 Flow Rate 3 10/23 1121 24 hour I O ending at 0700: 10/26 0700 10/25 1900 Intake Total 580.00 240 Output Total 775 850 Balance -195.00 -610 Intake, IV 100.00 Intake, Oral 480 240 Number 0 Bowel Movements Output, Urine 775 850 Patient 162 lb Weight Weight Standing scale Measurement Method PATIENT WEIGHT: Weight (lb): 162 Weight (oz): 7.69 Weight (kg): 73.700 General appearance: alert, awake Head/Eyes: atraumatic, clear cornea, EOMI ENT: normal dentition, normal ear left, normal ear right Neck: full range of motion, non-tender, no lymphadenopathy Cardiovascular: normal capillary refill, pedal pulses present, regular rate rhythm Respiratory: aerating well, symmetric expansion Abdomen: non-tender, no guarding, no rebound Genitourinary: not indicated Extremities: moves all, no clubbing, no cyanosis Musculoskeletal: decreased ROM, no muscle spasm 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: alert, oriented X 3 Skin: no rash, surgical incisions C/D/I Lymphatics: no lymphadenopathy Psychiatry: normal affect, normal judgment/insight Results Findings/Data: Laboratory Tests: 10/26 10/25 0236 1711 Chemistry Sodium (134 - 147 mEq/L) 143 Potassium (3.4 - 5.0 mEq/L) 3.9 Chloride (100 - 108 mEq/L) 110 H Carbon Dioxide (21 - 33 mEq/l) 26 Anion Gap (0 - 20) 11 BUN (7 - 25 mg/dL) 19 Creatinine (0.6 - 1.3 mg/dL) 0.9 Glomerular Filtr Rate (80 - 90) 96.6 H Glucose (77 - 141 mg/dL) 124 POC Glucose (70 - 110 MG/DL) 112 H Calcium (8.0 - 10.5 mg/dL) 7.8 L Magnesium (1.6 - 2.6 mg/dL) 2.09 Hematology WBC (4.5 - 11.0 x10 3/uL) 10.8 RBC (4.00 - 5.60 x10 6/uL) 2.25 L Hgb (12.5 - 16.9 g/dL) 6.5 L Hct (37.5 - 50.7 %) 21.4 L MCV (81.0 - 99.0 fL) 95.1 MCH (27.0 - 33.0 pg) 28.9 MCHC (33.0 - 37.0 g/dL) 30.4 L RDW (11.5 - 14.5 %) 14.4 Plt Count (150 - 400 x10 3/uL) 371 MPV (7.0 - 9.0 fL) 9.5 H Neut % (Auto) (56.0 - 77.0 %) 69.2 Lymph % (Auto) (14.0 - 32.0 %) 15.2 [place] % (Auto) (4.8 - 9.0 %) 10.0 H Eos % (Auto) (0.3 - 3.7 %) 4.1 H Baso % (Auto) (0.0 - 2.0 %) 0.5 Neut # (Auto) (2.0 - 7.6 x10 3/uL) 7.44 Lymph # (Auto) (1.0 - 3.8 x10 3/uL) 1.63 [place] # (Auto) (0.1 - 0.8 x10 3/uL) 1.08 H Eos # (Auto) (0.0 - 0.2 x10 3/uL) 0.44 H Baso # (Auto) (0.0 - 0.2 x10 3/uL) 0.05 Abs Immat Gran (auto) (0.00 - 0.03 x10 3/uL) 0.11 H Immature Gran % (0.0 - 2.0 %) 1.0 Nucleated RBC % (0 - 0 %) 0.4 H Nucleated RBCs # (Man) (0.0 - 0.1 x10 3/uL) 0.04 Recent Impressions: RADIOLOGY - XR CHEST 1 V 10/25 0811 Report Impression - Status: SIGNED Entered: 10/25/2024 0858 IMPRESSION: Anticipated postsurgical changes of the chest with improving central congestion. Persistent retrocardiac opacity likely associated with atelectasis and associated small effusion. Small right effusion also suspected. Location: H2 Impression By: [email or web address] Alexia Bradshaw M.D. ULTRASOUND - DUP VEIN AMBROSE 10/25 1724 Report Impression - Status: SIGNED Entered: 10/25/20242001 IMPRESSION:No evidence for deep venous thrombosis. Impression By: [email or web address] - Nixon Sánchez M.D. Diagnosis, Assessment Plan Consultants: cardiology Free Text DxA P Notes Free Text DxA P Notes: Cardiac debility Multivessel CAD S/p CABG x 4 Generalized weakness Impaired ADLs, mobility, gait Postoperative anemia History of CHF HTN HLD Plan: Continue PT/OT Out of bed to chair Work on ADLs, strength, bed mobility, transfers, gait Sternal precaution Increase endurance Fall precautions Monitor PO intake and nutrition Strict decubitus precautions Cont. current medications Monitor labs Advance therapies as tolerated Consult IRF. Patient can transfer today if approved by IRF. Discussed with patient, family and CV surgery team Thank you for referral Quality: Gen Med Crit Care Current Medications Current medication review: Current Medications Sig/Nia Start time Last Medication Dose Route Stop Time Status Admin Aspirin 81 MG BEDTIME 10/15 2100 AC PO 01/13 2059 Acetaminophen 650 MG Q6H PRN PRN 10/15 1030 AC PO 01/13 1029 Clopidogrel Bisulfate 75 MG DAILY 10/15 1030 AC PO 01/13 1029 Morphine Sulfate 2 MG Q4H PRN PRN 10/15 1030 AC IV 10/20 1029 Ondansetron HCl 4 MG Q4H PRN PRN 10/15 1030 AC IV 01/13 1029 Albuterol/Ipratropium 3 ML X1ED STA 10/14 2127 DC 10/14 NEB 10/14 Aspirin 324 MG X1ED STA 10/14 2105 DC PO 10/14 2106 Home Medications: FUROSEMIDE (LASIX) 20 MG PO DAILY LOSARTAN 100 MG PO DAILY SPIRONOLACTONE (ALDACTONE) 25 MG PO DAILY ASPIRIN 81 MG PO DAILY CARVEDILOL (carvediloL) 12.5 MG PO BID CLOPIDOGREL (PLAVIX) 75 MG PO DAILY ATORVASTATIN (LIPITOR) 80 MG PO BEDTIME I attest that the foregoing medication list in the medical record is true, accurate, and complete to the best of my knowledge. at 1909 RPT #:[id number] END OF REPORT [facility] 2024-10-26 06:25:00 [facility] Progress Note REPORT#:[id number] REPORT STATUS: Signed REPORT INITIALIZATION DATE:10/26/24 TIME: 624 PATIENT: CLEO LONG UNIT #: [id number] ROOM/BED: [place] [id number] : 62 AGE: 63 SEX: M ATTEND: Shyla Zepeda MD ADM AUTHOR: Alec Norris MD REPT SERVICE DT/TIME: 10/26/24624 * ALL edits or amendments must be made on the electronic/computer document * Objective General VS/I O: 24 hour I O ending at 0700: 10/26 0700 10/25 1900 Intake Total 580.00 240 Output Total 775 850 Balance -195.00 -610 Intake, IV 100.00 Intake, Oral 480 240 Number 0 Bowel Movements Output, Urine 775 850 Patient 73.7 kg Weight Weight Standing scale Measurement Method Vital Signs: Date Time Temp Pulse Resp B/P B/P Pulse O2 O2 Flow FiO2 Mean Ox Delivery Rate 10/26 0326 95 Room air 21 /16 0251 66 26 94 12/16 0230 65 23 126/59 85 95 12/16 0201 68 32 112/58 80 98 12/16 0200 68 36 96 12/16 0130 69 28 129/66 91 95 12/16 0100 69 35 128/89 100 96 /16 0031 64 28 115/60 81 96 12/16 0028 64 29 96 12/16 0000 65 28 94 12/15 2331 61 24 119/76 92 93 12/15 2300 66 28 103/55 76 93 12/15 2230 71 27 125/58 83 95 /15 2201 73 124/62 87 92 12/15 2200 74 92 12/15 2130 69 22 118/58 84 95 12/15 2100 71 26 113/56 80 96 12/15 2048 94 Room air 21 15 2030 70 22 145/64 92 96 /15 1999 37.0 12/15 1999 70 25 126/60 87 97 12/15 1946 72 29 97 12/15 1931 72 35 113/60 82 95 12/15 1900 70 26 160/73 105 100 12/15 1835 70 38 142/67 97 93 12/15 1811 67 29 91 12/15 1800 64 22 153/67 97 98 12/15 1731 63 42 110/56 81 98 12/15 1700 65 26 128/64 89 98 12/15 1630 63 26 138/65 94 97 12/15 1626 63 24 97 12/15 1600 62 14 140/73 100 98 12/15 1530 60 12 143/64 92 98 12/15 1527 59 21 98 12/15 1500 59 15 133/58 83 97 12/15 1435 63 22 134/63 91 96 12/15 1416 60 22 144/65 94 98 12/15 1400 59 22 96 12/15 1330 57 27 114/60 80 96 12/15 1300 56 21 119/57 82 99 12/15 1200 51 20 99/56 71 99 12/15 1136 50 20 100 12/15 1130 50 20 125/58 83 100 12/15 1100 52 15 109/56 80 99 12/15 1030 56 33 114/58 80 97 12/15 1000 58 22 117/59 84 97 12/15 0946 63 27 124/58 84 97 10/25 0933 66 20 10/25 0900 65 26 119/61 85 98 10/25 0831 66 24 120/61 85 99 10/25 0814 68 22 118/56 80 99 10/25 0812 98 Room air 21 10/25 0807 69 23 98 10/25 0800 68 21 97 10/25 0700 65 22 139/64 92 98 PATIENT WEIGHT: Weight (lb): 162 Weight (oz): 7.69 Weight (kg): 73.700 Medications: Active Meds + DC'd Last 24 Hrs Potassium Chloride (POTASSIUM CHLORIDE 20MEQ TAB.ER) 20 MEQ ONCE ONE PO (DC) Metoprolol Tartrate (LOPRESSOR) 25 MG Q12HR PO Furosemide (LASIX 20MG INJ) 20 MG ONCE ONE IV (DC) Furosemide (LASIX 20MG INJ) 20 MG ONCE ONE IV (DC) Melatonin (Melatonin) 6 MG BEDTIME PRN PRN PO Ipratropium [place] (ATROVENT) 500 MCG RTQ2H PRN PRN INH Cyanocobalamin (Vitamin B-12 500 mcg tab) 500 MCG DAILY PO Ferrous Sulfate (FERROUS SULFATE) 325 MG DAILY PO Bisacodyl (DULCOLAX) 10 MG ONCE PRN RECTAL Hydralazine HCl (APRESOLINE) 50 MG Q8H PRN PRN PO Amlodipine Besylate (NORVASC) 5 MG DAILY PO Metoprolol Tartrate (LOPRESSOR) 50 MG Q12HR PO (DC) Clopidogrel Bisulfate (Plavix) 75 MG DAILY PO Polyethylene Glycol (MIRALAX) 17 GM DAILY PO Pantoprazole (PROTONIX) 40 MG DAILY@0600 PO Atorvastatin Calcium (LIPITOR) 40 MG 2100 PO Docusate Sodium (COLACE) 100 MG BID PO Sennosides (Senna Lax 8.6 MG TABLET) 17.2 MG BEDTIME PO Aspirin (ASPIRIN) 81 MG DAILY PO Amiodarone HCl (CORDARONE) 200 MG TID PO Acetaminophen (TYLENOL) 650 MG Q4H PRN PRN PO Acetaminophen (TYLENOL) 650 MG Q4H PRN PRN RECTAL Calcium Chloride (CALCIUM CHLORIDE) 1 GM ASDIR PRN IV Dextrose/Water (DEXTROSE 10% IN WATER) 125 ML ASDIR PRN IV (CKD) Dextrose/Water (DEXTROSE 10% IN WATER) 250 ML ASDIR PRN IV (CKD) Epinephrine (ADRENALIN CHLORIDE) 4 MG ASDIR IV Dextrose/Water (DEXTROSE 5% WATER) 246 ML Glucagon (GLUCAGON) 1 MG ASDIR PRN IM Insulin Human Regular (MYXREDLIN 100 UNITS/NS 100ML) 100 ML ASDIR IV ( CKD) Magnesium Sulfate (MAGNESIUM SULFATE 4GM/SWFI 100ML) 100 ML ASDIR PRN IV Magnesium Sulfate (MAGNESIUM SULFATE 2GM/SWFI 50ML) 50 ML ASDIR PRN IV Magnesium Sulfate/Dextrose (MAGNESIUM SULFATE 1GM/D5W 100ML) 100 ML ASDIR PRN IV Mupirocin (BACTROBAN 2% 22 GM OINTMENT) 1 APPLIC BID NASAL (DC) Nitroglycerin/Dextrose (NITROGLYCERIN 50,000MCG/D5W 250ML) 250 ML ASDIR IV Norepinephrine/Dextrose (Norepinephrine 8 MG/D5W 250 mL) 250 ML TITRATE IV Ondansetron HCl (ZOFRAN) 4 MG Q6H PRN PRN IV Oxycodone HCl (ROXICODONE) 5 MG Q4H PRN PRN PO Oxycodone HCl (ROXICODONE) 10 MG Q4H PRN PRN PO Potassium Chloride (KCL 20MEQ/SWFI 100ML) 100 ML ASDIR PRN IV Sodium Bicarbonate (SODIUM BICARBONATE) 50 MEQ ASDIR PRN IV Sodium Chloride (SODIUM CHLORIDE 0.9%) 250 ML Q24H IV Physical Exam General appearance: alert, awake Cardiovascular: CV assessment: regular rate and rhythm, BP pulses = bilaterally, normal heart sounds, pedal pulses present, no ectopy, no heave, no murmur Respiratory: clear to auscultation Results Findings/Data: Laboratory Tests 10/26 10/25 0236 1711 Chemistry Sodium (134 - 147 mEq/L) 143 Potassium (3.4 - 5.0 mEq/L) 3.9 Chloride (100 - 108 mEq/L) 110 H Carbon Dioxide (21 - 33 mEq/l) 26 Anion Gap (0 - 20) 11 BUN (7 - 25 mg/dL) 19 Creatinine (0.6 - 1.3 mg/dL) 0.9 Glomerular Filtr Rate (80 - 90) 96.6 H Glucose (77 - 141 mg/dL) 124 POC Glucose (70 - 110 MG/DL) 112 H Calcium (8.0 - 10.5 mg/dL) 7.8 L Magnesium (1.6 - 2.6 mg/dL) 2.09 Laboratory Tests 10/26 0236 Hematology WBC (4.5 - 11.0 x10 3/uL) 10.8 RBC (4.00 - 5.60 x10 6/uL) 2.25 L Hgb (12.5 - 16.9 g/dL) 6.5 L Hct (37.5 - 50.7 %) 21.4 L MCV (81.0 - 99.0 fL) 95.1 MCH (27.0 - 33.0 pg) 28.9 MCHC (33.0 - 37.0 g/dL) 30.4 L RDW (11.5 - 14.5 %) 14.4 Plt Count (150 - 400 x10 3/uL) 371 MPV (7.0 - 9.0 fL) 9.5 H Neut % (Auto) (56.0 - 77.0 %) 69.2 Lymph % (Auto) (14.0 - 32.0 %) 15.2 [place] % (Auto) (4.8 - 9.0 %) 10.0 H Eos % (Auto) (0.3 - 3.7 %) 4.1 H Baso % (Auto) (0.0 - 2.0 %) 0.5 Neut # (Auto) (2.0 - 7.6 x10 3/uL) 7.44 Lymph # (Auto) (1.0 - 3.8 x10 3/uL) 1.63 [place] # (Auto) (0.1 - 0.8 x10 3/uL) 1.08 H Eos # (Auto) (0.0 - 0.2 x10 3/uL) 0.44 H Baso # (Auto) (0.0 - 0.2 x10 3/uL) 0.05 Abs Immat Gran (auto) (0.00 - 0.03 x10 3/uL) 0.11 H Immature Gran % (0.0 - 2.0 %) 1.0 Nucleated RBC % (0 - 0 %) 0.4 H Nucleated RBCs # (Man) (0.0 - 0.1 x10 3/uL) 0.04 Laboratory Tests 10/26 0236 Chemistry Magnesium (1.6 - 2.6 mg/dL) 2.09 Diagnosis, Assessment Plan Free Text DxA P Notes Free Text DxA P Notes: 1. CAD: Two-vessel, plan for CABG sometime next week. 2. Hyperlipidemia: Continue statin 3. Hypertension: Continue carvedilol s/p cabg today extubated chest tubes in place stable hemodynamics no symptoms clinically better Patient alert, awake, oriented, reports pain improving. Labs reviewed, HGB 6.5, slightly improved-stable No tachycardia no signs of hemodynamic instability, replace electrolytes as needed Breathing comfortable on room air, encourage incentive spirometer use Normal sinus rhythm, epicardial pacing wires on standby-discontinue today, limited echocardiogram monitoring blood pressure, metoprolol 25mg BID, amlodipine 5mg daily, Tolerating cardiac diet, reports bowel movements Strict I's and O's and daily standing scale weight, weight trending down PT/OT, OOB for all meals, encourage ambulation DVT prophylaxis with SCDs, GI prophylaxis with PPI Bilateral extremity Dopplers negative for DVT Disposition: patient and family admitted they are not at one specific place living. Rehab consulted at 1900 RPT #:[id number] END OF REPORT [facility] 2024-10-25 09:59:00 [facility] Hospitalist Progress Note REPORT#:[id number] REPORT STATUS: Signed REPORT INITIALIZATION DATE:10/25/24 TIME: 958 PATIENT: CLEO LONG UNIT #: [id number] ROOM/BED: [place] [address] : 61 AGE: 63 SEX: M ATTEND: Shyla Zepeda MD ADM AUTHOR: Sue John MD REPT SERVICE DT/TIME: 10/25/24 0959 * ALL edits or amendments must be made on the electronic/computer document * Subjective Chief complaint: he had bowel movement today . he is doing well . HPI: 63 years old male with PMH of HTN, CHF and CAD with 7 stents complaint of cp . pain did not radiate . he also found elevate troponin . he was transferred to the hospital from [facility] due to NSTEMI . no fever no cough no sob no edema no nausea no vomiting no rosalind pain no dysuria no dizziness no syncope no neurology deficit . Review of Systems All systems rev neg: except as noted Objective General VS/I O: Vital Signs: Date Time Temp Pulse Resp B/P B/P Pulse O2 O2 Flow FiO2 Mean Ox Delivery Rate 10/25 0933 66 20 10/25 0900 65 26 119/61 85 98 10/25 0831 66 24 120/61 85 99 10/25 0814 68 22 118/56 80 99 10/25 0812 98 Room air 21 10/25 0807 69 23 98 10/25 0800 68 21 97 10/25 0700 65 22 139/64 92 98 10/25 0602 66 21 134/63 90 96 10/25 0530 63 19 125/61 86 95 10/25 0411 96 Room air 21 10/25 0400 37.0 10/25 0400 63 23 117/60 81 97 10/25 0300 63 29 123/68 91 89 10/25 0202 64 28 125/59 85 97 10/25 0100 61 31 123/57 81 10/25 0001 62 42 116/66 83 10/24 2301 60 22 107/58 76 10/24 2257 61 98 40 10/24 2257 96 BiPAP 30 10/24 2200 62 22 118/58 84 10/24 2113 96 Room air 21 10/24 2100 68 24 101/52 72 10/24 2000 36.8 10/24 2000 71 24 119/55 79 10/24 1900 69 22 127/60 87 96 10/24 1500 64 28 123/60 86 98 10/24 1400 63 26 112/59 79 96 10/24 1301 62 26 97/53 70 97 10/24 1201 59 25 98/56 74 10/24 1140 92 Room air 10/24 1100 72 16 127/59 85 96 10/24 1000 71 23 118/66 85 95 24 hour I O ending at 0700: 10/25 0700 10/24 1900 Intake Total 390 Output Total 350 800 Balance 40 -800 Intake, Oral 390 Number 3 Bowel Movements Output, Urine 350 800 Patient 75 kg Weight Weight Standing scale Measurement Method PATIENT WEIGHT: Weight (lb): 165 Weight (oz): 5.55 Weight (kg): 75.000 Medications: Active Meds + DC'd Last 24 Hrs Furosemide (LASIX 20MG INJ) 20 MG ONCE ONE IV (DC) Furosemide (LASIX 20MG INJ) 20 MG ONCE ONE IV (DC) Melatonin (Melatonin) 6 MG BEDTIME PRN PRN PO Ipratropium [place] (ATROVENT) 500 MCG RTQ2H PRN PRN INH Cyanocobalamin (Vitamin B-12 500 mcg tab) 500 MCG DAILY PO Ferrous Sulfate (FERROUS SULFATE) 325 MG DAILY PO Bisacodyl (DULCOLAX) 10 MG ONCE PRN RECTAL Hydralazine HCl (APRESOLINE) 50 MG Q8H PRN PRN PO Amlodipine Besylate (NORVASC) 5 MG DAILY PO Metoprolol Tartrate (LOPRESSOR) 50 MG Q12HR PO Clopidogrel Bisulfate (Plavix) 75 MG DAILY PO Polyethylene Glycol (MIRALAX) 17 GM DAILY PO Pantoprazole (PROTONIX) 40 MG DAILY@0600 PO Atorvastatin Calcium (LIPITOR) 40 MG 2100 PO Docusate Sodium (COLACE) 100 MG BID PO Sennosides (Senna Lax 8.6 MG TABLET) 17.2 MG BEDTIME PO Aspirin (ASPIRIN) 81 MG DAILY PO Amiodarone HCl (CORDARONE) 200 MG TID PO Ipratropium [place] (ATROVENT) 500 MCG RTQ4H INH (DC) Acetaminophen (TYLENOL) 650 MG Q4H PRN PRN PO Acetaminophen (TYLENOL) 650 MG Q4H PRN PRN RECTAL Calcium Chloride (CALCIUM CHLORIDE) 1 GM ASDIR PRN IV Dextrose/Water (DEXTROSE 10% IN WATER) 125 ML ASDIR PRN IV (CKD) Dextrose/Water (DEXTROSE 10% IN WATER) 250 ML ASDIR PRN IV (CKD) Epinephrine (ADRENALIN CHLORIDE) 4 MG ASDIR IV Dextrose/Water (DEXTROSE 5% WATER) 246 ML Glucagon (GLUCAGON) 1 MG ASDIR PRN IM Insulin Human Regular (MYXREDLIN 100 UNITS/NS 100ML) 100 ML ASDIR IV ( CKD) Magnesium Sulfate (MAGNESIUM SULFATE 4GM/SWFI 100ML) 100 ML ASDIR PRN IV Magnesium Sulfate (MAGNESIUM SULFATE 2GM/SWFI 50ML) 50 ML ASDIR PRN IV Magnesium Sulfate/Dextrose (MAGNESIUM SULFATE 1GM/D5W 100ML) 100 ML ASDIR PRN IV Mupirocin (BACTROBAN 2% 22 GM OINTMENT) 1 APPLIC BID NASAL Nitroglycerin/Dextrose (NITROGLYCERIN 50,000MCG/D5W 250ML) 250 ML ASDIR IV Norepinephrine/Dextrose (Norepinephrine 8 MG/D5W 250 mL) 250 ML TITRATE IV Ondansetron HCl (ZOFRAN) 4 MG Q6H PRN PRN IV Oxycodone HCl (ROXICODONE) 5 MG Q4H PRN PRN PO Oxycodone HCl (ROXICODONE) 10 MG Q4H PRN PRN PO Potassium Chloride (KCL 20MEQ/SWFI 100ML) 100 ML ASDIR PRN IV Sodium Bicarbonate (SODIUM BICARBONATE) 50 MEQ ASDIR PRN IV Sodium Chloride (SODIUM CHLORIDE 0.9%) 250 ML Q24H IV Physical Exam Head/Eyes: atraumatic, normal conjunctiva/sclera, normal eyelids/periorb. Neck: full range of motion, non-tender, normal thyroid Cardiovascular: normal heart sounds, regular rate rhythm Respiratory: aerating well, clear to auscultation Abdomen: non-tender, normal bowel sounds, soft, no distention Extremities: moves all, no calf tenderness, no edema 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: alert, oriented X 3, CNII-XII intact, normal speech, no motor deficits, no sensory deficits Skin: dry, intact Psychiatry: normal affect, normal judgment/insight Results Findings/Data: Laboratory Tests 10/25 10/25 1711 0351 Chemistry Sodium (134 - 147 mEq/L) 142 Potassium (3.4 - 5.0 mEq/L) 3.9 Chloride (100 - 108 mEq/L) 110 H Carbon Dioxide (21 - 33 mEq/l) 23 Anion Gap (0 - 20) 13 BUN (7 - 25 mg/dL) 26 H Creatinine (0.6 - 1.3 mg/dL) 0.9 Glomerular Filtr Rate (80 - 90) 96.6 H Glucose (77 - 141 mg/dL) 115 POC Glucose (70 - 110 MG/DL) 112 H Calcium (8.0 - 10.5 mg/dL) 8.1 Magnesium (1.6 - 2.6 mg/dL) 2.01 Laboratory Tests 10/25 0351 Hematology WBC (4.5 - 11.0 x10 3/uL) 12.2 H RBC (4.00 - 5.60 x10 6/uL) 2.18 L Hgb (12.5 - 16.9 g/dL) 6.4 *L Hct (37.5 - 50.7 %) 19.9 L MCV (81.0 - 99.0 fL) 91.3 MCH (27.0 - 33.0 pg) 29.4 MCHC (33.0 - 37.0 g/dL) 32.2 L RDW (11.5 - 14.5 %) 14.4 Plt Count (150 - 400 x10 3/uL) 297 MPV (7.0 - 9.0 fL) 9.5 H Neut % (Auto) (56.0 - 77.0 %) 72.4 Lymph % (Auto) (14.0 - 32.0 %) 15.9 [place] % (Auto) (4.8 - 9.0 %) 7.3 Eos % (Auto) (0.3 - 3.7 %) 3.5 Baso % (Auto) (0.0 - 2.0 %) 0.3 Neut # (Auto) (2.0 - 7.6 x10 3/uL) 8.85 H Lymph # (Auto) (1.0 - 3.8 x10 3/uL) 1.95 [place] # (Auto) (0.1 - 0.8 x10 3/uL) 0.89 H Eos # (Auto) (0.0 - 0.2 x10 3/uL) 0.43 H Baso # (Auto) (0.0 - 0.2 x10 3/uL) 0.04 Abs Immat Gran (auto) (0.00 - 0.03 x10 3/uL) 0.07 H Immature Gran % (0.0 - 2.0 %) 0.6 Nucleated RBC % (0 - 0 %) 0.0 Nucleated RBCs # (Man) (0.0 - 0.1 x10 3/uL) 0.00 Diagnosis, Assessment Plan Consultants: cardiology Free Text DxA P Notes Free text DxA P notes: 63 YO male with CAD with stent Substance use HTN heart disease with HF Chronic systolic HF EF 35-39% Right carotid stenosis 50-69% anemia -- due to acute blood loss 10/15 tele cardiology consult continue ASA/plavix /lipitor CHF -- continue lasix and aldactone -- cozaar HTN- continue coreg 10/16- no cp no sob -- cath today -- post cath -- CABG evaluation 10/17 CABG next week, medically stable to proceed 10/18 CABG next week, Chest CT scan showed ? Pericardal effusion. stable to proceed 10/19 Vitals and labs stable today. No acute complaints. CABG later then week per surgeon. 10/20 labs and vitals remains stable. CABG later this week when surgery schedules. 10/22 S/P CABG 10/21. Continue postop care per CT surgery in ICU. Monitor chest tube OP. Monitor hgb, transfuse if hgb <7. S/P 1 unit PRBC. PT/OT for OOB. DC planning, possible SNF vs IPR. 10/23 Continue post-op care. PT/OT. Chest tubes out. Labs noted, CMP ok. Monitor Hgb and WBC. Rehab eval. 10/24- he sit on the chair no sob no dizziness -- he is hemodynamic stable -- HB-- 6.3- 6.1-- monitor H H --blood transfuse as CV surgeon and critical care --continue monitor in CV icu -- lab review 10/25 -- he had bowel movement . he is doing well . ambulate with PT -- he is hemodynamic stable -- H h -- 6.4- stable -- as cv surgeon -- continue PT/OT at 1741 RPT #:[id number] END OF REPORT [facility] 2024-10-25 07:09:00 [facility] Cardiology Progress Note REPORT#:[id number] REPORT STATUS: Signed REPORT INITIALIZATION DATE:10/25/24 TIME: 708 PATIENT: CLEO LONG UNIT #: [id number] ROOM/BED: [address] : [birth year] AGE: 63 SEX: M ATTEND: Shyla Zepeda MD ADM AUTHOR: Alec Norris MD REPT SERVICE DT/TIME: 10/25/24 07 * ALL edits or amendments must be made on the electronic/computer document * Objective General VS/I O: 24 hour I O ending at 0700: 10/25 0700 10/24 1900 Intake Total 390 Output Total 350 800 Balance 40 -800 Intake, Oral 390 Number 3 Bowel Movements Output, Urine 350 800 Patient 75 kg Weight Weight Standing scale Measurement Method Vital Signs: Date Time Temp Pulse Resp B/P B/P Pulse O2 O2 Flow FiO2 Mean Ox Delivery Rate 10/25 0602 66 21 134/63 90 96 10/25 0530 63 19 125/61 86 95 10/25 0411 96 Room air 21 10/25 0400 37.0 10/25 0400 63 23 117/60 81 97 10/25 0300 63 29 123/68 91 89 10/25 0202 64 28 125/59 85 97 10/25 0100 61 31 123/57 81 10/25 0001 62 42 116/66 83 10/24 2301 60 22 107/58 76 10/24 2257 61 98 40 10/24 2257 96 BiPAP 30 10/24 2200 62 22 118/58 84 10/24 2113 96 Room air 21 10/24 2100 68 24 101/52 72 10/24 2000 36.8 10/24 2000 71 24 119/55 79 10/24 1900 69 22 127/60 87 96 10/24 1500 64 28 123/60 86 98 10/24 1400 63 26 112/59 79 96 10/24 1301 62 26 97/53 70 97 10/24 1201 59 25 98/56 74 10/24 1140 92 Room air 10/24 1100 72 16 127/59 85 96 10/24 1000 71 23 118/66 85 95 10/24 0900 71 20 120/56 80 96 10/24 0808 92 Room air 10/24 0800 68 21 109/60 78 94 PATIENT WEIGHT: Weight (lb): 165 Weight (oz): 5.55 Weight (kg): 75.000 Medications: Active Meds + DC'd Last 24 Hrs Melatonin (Melatonin) 6 MG BEDTIME PRN PRN PO Ipratropium [place] (ATROVENT) 500 MCG RTQ2H PRN PRN INH Cyanocobalamin (Vitamin B-12 500 mcg tab) 500 MCG DAILY PO Ferrous Sulfate (FERROUS SULFATE) 325 MG DAILY PO Bisacodyl (DULCOLAX) 10 MG ONCE PRN RECTAL Hydralazine HCl (APRESOLINE) 50 MG Q8H PRN PRN PO Amlodipine Besylate (NORVASC) 5 MG DAILY PO Metoprolol Tartrate (LOPRESSOR) 50 MG Q12HR PO Clopidogrel Bisulfate (Plavix) 75 MG DAILY PO Polyethylene Glycol (MIRALAX) 17 GM DAILY PO Pantoprazole (PROTONIX) 40 MG DAILY@0600 PO Atorvastatin Calcium (LIPITOR) 40 MG 2100 PO Docusate Sodium (COLACE) 100 MG BID PO Sennosides (Senna Lax 8.6 MG TABLET) 17.2 MG BEDTIME PO Aspirin (ASPIRIN) 81 MG DAILY PO Amiodarone HCl (CORDARONE) 200 MG TID PO Ipratropium [place] (ATROVENT) 500 MCG RTQ4H INH (DC) Acetaminophen (TYLENOL) 650 MG Q4H PRN PRN PO Acetaminophen (TYLENOL) 650 MG Q4H PRN PRN RECTAL Calcium Chloride (CALCIUM CHLORIDE) 1 GM ASDIR PRN IV Dextrose/Water (DEXTROSE 10% IN WATER) 125 ML ASDIR PRN IV (CKD) Dextrose/Water (DEXTROSE 10% IN WATER) 250 ML ASDIR PRN IV (CKD) Epinephrine (ADRENALIN CHLORIDE) 4 MG ASDIR IV Dextrose/Water (DEXTROSE 5% WATER) 246 ML Glucagon (GLUCAGON) 1 MG ASDIR PRN IM Insulin Human Regular (MYXREDLIN 100 UNITS/NS 100ML) 100 ML ASDIR IV ( CKD) Magnesium Sulfate (MAGNESIUM SULFATE 4GM/SWFI 100ML) 100 ML ASDIR PRN IV Magnesium Sulfate (MAGNESIUM SULFATE 2GM/SWFI 50ML) 50 ML ASDIR PRN IV Magnesium Sulfate/Dextrose (MAGNESIUM SULFATE 1GM/D5W 100ML) 100 ML ASDIR PRN IV Mupirocin (BACTROBAN 2% 22 GM OINTMENT) 1 APPLIC BID NASAL Nitroglycerin/Dextrose (NITROGLYCERIN 50,000MCG/D5W 250ML) 250 ML ASDIR IV Norepinephrine/Dextrose (Norepinephrine 8 MG/D5W 250 mL) 250 ML TITRATE IV Ondansetron HCl (ZOFRAN) 4 MG Q6H PRN PRN IV Oxycodone HCl (ROXICODONE) 5 MG Q4H PRN PRN PO Oxycodone HCl (ROXICODONE) 10 MG Q4H PRN PRN PO Potassium Chloride (KCL 20MEQ/SWFI 100ML) 100 ML ASDIR PRN IV Sodium Bicarbonate (SODIUM BICARBONATE) 50 MEQ ASDIR PRN IV Sodium Chloride (SODIUM CHLORIDE 0.9%) 250 ML Q24H IV Physical Exam General appearance: alert, awake Cardiovascular: CV assessment: regular rate and rhythm, BP pulses = bilaterally, normal heart sounds, pedal pulses present, no ectopy, no heave, no murmur Respiratory: clear to auscultation Results Findings/Data: Laboratory Tests 10/25 351 Chemistry Sodium (134 - 147 mEq/L) 142 Potassium (3.4 - 5.0 mEq/L) 3.9 Chloride (100 - 108 mEq/L) 110 H Carbon Dioxide (21 - 33 mEq/l) 23 Anion Gap (0 - 20) 13 BUN (7 - 25 mg/dL) 26 H Creatinine (0.6 - 1.3 mg/dL) 0.9 Glomerular Filtr Rate (80 - 90) 96.6 H Glucose (77 - 141 mg/dL) 115 Calcium (8.0 - 10.5 mg/dL) 8.1 Magnesium (1.6 - 2.6 mg/dL) 2.01 Laboratory Tests 10/25 351 Hematology WBC (4.5 - 11.0 x10 3/uL) 12.2 H RBC (4.00 - 5.60 x10 6/uL) 2.18 L Hgb (12.5 - 16.9 g/dL) 6.4 *L Hct (37.5 - 50.7 %) 19.9 L MCV (81.0 - 99.0 fL) 91.3 MCH (27.0 - 33.0 pg) 29.4 MCHC (33.0 - 37.0 g/dL) 32.2 L RDW (11.5 - 14.5 %) 14.4 Plt Count (150 - 400 x10 3/uL) 297 MPV (7.0 - 9.0 fL) 9.5 H Neut % (Auto) (56.0 - 77.0 %) 72.4 Lymph % (Auto) (14.0 - 32.0 %) 15.9 [place] % (Auto) (4.8 - 9.0 %) 7.3 Eos % (Auto) (0.3 - 3.7 %) 3.5 Baso % (Auto) (0.0 - 2.0 %) 0.3 Neut # (Auto) (2.0 - 7.6 x10 3/uL) 8.85 H Lymph # (Auto) (1.0 - 3.8 x10 3/uL) 1.95 [place] # (Auto) (0.1 - 0.8 x10 3/uL) 0.89 H Eos # (Auto) (0.0 - 0.2 x10 3/uL) 0.43 H Baso # (Auto) (0.0 - 0.2 x10 3/uL) 0.04 Abs Immat Gran (auto) (0.00 - 0.03 x10 3/uL) 0.07 H Immature Gran % (0.0 - 2.0 %) 0.6 Nucleated RBC % (0 - 0 %) 0.0 Nucleated RBCs # (Man) (0.0 - 0.1 x10 3/uL) 0.00 Microbiology Date/Time Procedure - Status Source Growth 10/24 0815 Occult Blood - COMP Stool Laboratory Tests 10/25 0351 Chemistry Magnesium (1.6 - 2.6 mg/dL) 2.01 Diagnosis, Assessment Plan Free Text DxA P Notes Free Text DxA P Notes: 1. CAD: Two-vessel, plan for CABG sometime next week. 2. Hyperlipidemia: Continue statin 3. Hypertension: Continue carvedilol s/p cabg today extubated chest tubes in place stable hemodynamics no symptoms clinically better stable plan per cts at 1858 RPT #:[id number] END OF REPORT [facility] 2024-10-25 06:54:00 [facility] ([facility] Critical Care Progress Note REPORT#:[id number] REPORT STATUS: Signed REPORT INITIALIZATION DATE:10/25/24 TIME: 06 PATIENT: CLEO LONG UNIT #: [id number] ROOM/BED: [place] [address] : [birth year] AGE: 63 SEX: M ATTEND: Shyla Zepeda MD ADM AUTHOR: Rickey Kerr MD REPT SERVICE DT/TIME: 10/25/24 0654 * ALL edits or amendments must be made on the electronic/computer document * Subjective Chief complaint: CAD HPI: Patient is a 63-year-old male with past medical history of hypertension, hyperlipidemia, CHF and coronary artery disease with 7 previous stents. Patient presented with chest pain. His left heart cath on the sixth that showed multivessel coronary artery disease. He underwent CABG x 4 today with CV surgery. He is not the CVICU for postoperative care. His postoperative echo had an EF of 50% on epi of 3. He was also on vasopressin 0.02 and on small dose of norepinephrine. He received 1 L of crystalloid intraoperatively and 250 of Cell Saver. He also received 2 units of platelets and 2 FFP. Currently sinus rhythm in the 60s and quickly titrating down on drips. Sedation is off. His paralytic was reversed. He was started on spontaneous breathing trial. Postop labs, EKG, chest x-ray pending. He is noted to have increased output out of his mediastinal drain. He put out 130 of sanguinous output in 1 hour. Tag sent and will give another FFP and platelet. 10/22: Patient seen and evaluated bedside. No acute events overnight. Is on room air. Started on nitro for high blood pressure this morning. Complaining of pain at chest tube site 10/23: Patient seen and evaluated bedside. No acute events overnight. Remains on nitro infusion for hypertension. Is on 3 L nasal cannula. Pain is better controlled. Will increase beta-fletcher today and start amlodipine. 10/24 Seen evaluated this morning. Patient's been doing fairly well. Of any drips. On room air. Pain is well-controlled. H H trended downwards with a hemoglobin of 6.3 this morning from 7.2. No signs of active bleeding. No tachycardia blood pressure stable's. Discussed with cardiac surgery at this time we will be watching only unless there is any changes in hemodynamics. Patient feels okay ambulating. Did have a large liquid bowel movement. Hemoccult has been sent. No fevers. 10/25 Seen evaluated this morning doing fairly well no issues room air H H remained stable. Tolerating well p.o. intake. Will do gentle diuresis. Hemoccult negative. Disposition planning started. Objective General VS/I O Last Documented: Result Date Time Pulse 66 10/25 0933 Resp 20 10/25 09 Pulse Ox 98 10/25 0900 B/P 119/61 10/25 0900 B/P Mean 85 10/25 09 FiO2 21 10/25 0812 O2 Delivery Room air 10/25 812 Temp 98.6 10/25 0400 O2 Flow Rate 3 10/23 1121 24 hour I O ending at 0700: 10/25 0700 10/24 1900 Intake Total 390 Output Total 350 800 Balance 40 -800 Intake, Oral 390 Number 3 Bowel Movements Output, Urine 350 800 Patient 75 kg Weight Weight Standing scale Measurement Method PATIENT WEIGHT: Weight (lb): 165 Weight (oz): 5.55 Weight (kg): 75.000 Medications: Active Meds + DC'd Last 24 Hrs Furosemide (LASIX 20MG INJ) 20 MG ONCE ONE IV (DC) Furosemide (LASIX 20MG INJ) 20 MG ONCE ONE IV (DC) Melatonin (Melatonin) 6 MG BEDTIME PRN PRN PO Ipratropium [place] (ATROVENT) 500 MCG RTQ2H PRN PRN INH Cyanocobalamin (Vitamin B-12 500 mcg tab) 500 MCG DAILY PO Ferrous Sulfate (FERROUS SULFATE) 325 MG DAILY PO Bisacodyl (DULCOLAX) 10 MG ONCE PRN RECTAL Hydralazine HCl (APRESOLINE) 50 MG Q8H PRN PRN PO Amlodipine Besylate (NORVASC) 5 MG DAILY PO Metoprolol Tartrate (LOPRESSOR) 50 MG Q12HR PO Clopidogrel Bisulfate (Plavix) 75 MG DAILY PO Polyethylene Glycol (MIRALAX) 17 GM DAILY PO Pantoprazole (PROTONIX) 40 MG DAILY@0600 PO Atorvastatin Calcium (LIPITOR) 40 MG 2100 PO Docusate Sodium (COLACE) 100 MG BID PO Sennosides (Senna Lax 8.6 MG TABLET) 17.2 MG BEDTIME PO Aspirin (ASPIRIN) 81 MG DAILY PO Amiodarone HCl (CORDARONE) 200 MG TID PO Ipratropium [place] (ATROVENT) 500 MCG RTQ4H INH (DC) Acetaminophen (TYLENOL) 650 MG Q4H PRN PRN PO Acetaminophen (TYLENOL) 650 MG Q4H PRN PRN RECTAL Calcium Chloride (CALCIUM CHLORIDE) 1 GM ASDIR PRN IV Dextrose/Water (DEXTROSE 10% IN WATER) 125 ML ASDIR PRN IV (CKD) Dextrose/Water (DEXTROSE 10% IN WATER) 250 ML ASDIR PRN IV (CKD) Epinephrine (ADRENALIN CHLORIDE) 4 MG ASDIR IV Dextrose/Water (DEXTROSE 5% WATER) 246 ML Glucagon (GLUCAGON) 1 MG ASDIR PRN IM Insulin Human Regular (MYXREDLIN 100 UNITS/NS 100ML) 100 ML ASDIR IV ( CKD) Magnesium Sulfate (MAGNESIUM SULFATE 4GM/SWFI 100ML) 100 ML ASDIR PRN IV Magnesium Sulfate (MAGNESIUM SULFATE 2GM/SWFI 50ML) 50 ML ASDIR PRN IV Magnesium Sulfate/Dextrose (MAGNESIUM SULFATE 1GM/D5W 100ML) 100 ML ASDIR PRN IV Mupirocin (BACTROBAN 2% 22 GM OINTMENT) 1 APPLIC BID NASAL Nitroglycerin/Dextrose (NITROGLYCERIN 50,000MCG/D5W 250ML) 250 ML ASDIR IV Norepinephrine/Dextrose (Norepinephrine 8 MG/D5W 250 mL) 250 ML TITRATE IV Ondansetron HCl (ZOFRAN) 4 MG Q6H PRN PRN IV Oxycodone HCl (ROXICODONE) 5 MG Q4H PRN PRN PO Oxycodone HCl (ROXICODONE) 10 MG Q4H PRN PRN PO Potassium Chloride (KCL 20MEQ/SWFI 100ML) 100 ML ASDIR PRN IV Sodium Bicarbonate (SODIUM BICARBONATE) 50 MEQ ASDIR PRN IV Sodium Chloride (SODIUM CHLORIDE 0.9%) 250 ML Q24H IV Physical Exam Head/eyes: EOMI, PERRLA ENT: moist mucosal membranes Neck: non-tender, no JVD Cardiovascular: normal capillary refill, normal heart sounds, regular rate and rhythm Respiratory: aerating well, no distress Abdomen: soft, non-tender, no guarding Extremities: moves all, normal capillary refill 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: alert, oriented X 3, CNII-XII intact, normal speech, no motor deficits, no sensory deficits Results Findings/data: Laboratory Tests 10/25 351 Chemistry Sodium (134 - 147 mEq/L) 142 Potassium (3.4 - 5.0 mEq/L) 3.9 Chloride (100 - 108 mEq/L) 110 H Carbon Dioxide (21 - 33 mEq/l) 23 Anion Gap (0 - 20) 13 BUN (7 - 25 mg/dL) 26 H Creatinine (0.6 - 1.3 mg/dL) 0.9 Glomerular Filtr Rate (80 - 90) 96.6 H Glucose (77 - 141 mg/dL) 115 Calcium (8.0 - 10.5 mg/dL) 8.1 Magnesium (1.6 - 2.6 mg/dL) 2.01 Laboratory Tests 10/25 351 Hematology WBC (4.5 - 11.0 x10 3/uL) 12.2 H RBC (4.00 - 5.60 x10 6/uL) 2.18 L Hgb (12.5 - 16.9 g/dL) 6.4 *L Hct (37.5 - 50.7 %) 19.9 L MCV (81.0 - 99.0 fL) 91.3 MCH (27.0 - 33.0 pg) 29.4 MCHC (33.0 - 37.0 g/dL) 32.2 L RDW (11.5 - 14.5 %) 14.4 Plt Count (150 - 400 x10 3/uL) 297 MPV (7.0 - 9.0 fL) 9.5 H Neut % (Auto) (56.0 - 77.0 %) 72.4 Lymph % (Auto) (14.0 - 32.0 %) 15.9 [place] % (Auto) (4.8 - 9.0 %) 7.3 Eos % (Auto) (0.3 - 3.7 %) 3.5 Baso % (Auto) (0.0 - 2.0 %) 0.3 Neut # (Auto) (2.0 - 7.6 x10 3/uL) 8.85 H Lymph # (Auto) (1.0 - 3.8 x10 3/uL) 1.95 [place] # (Auto) (0.1 - 0.8 x10 3/uL) 0.89 H Eos # (Auto) (0.0 - 0.2 x10 3/uL) 0.43 H Baso # (Auto) (0.0 - 0.2 x10 3/uL) 0.04 Abs Immat Gran (auto) (0.00 - 0.03 x10 3/uL) 0.07 H Immature Gran % (0.0 - 2.0 %) 0.6 Nucleated RBC % (0 - 0 %) 0.0 Nucleated RBCs # (Man) (0.0 - 0.1 x10 3/uL) 0.00 Laboratory Tests 10/25/24 0351: [Embedded Image Not Available] Microbiology: 10/24 815 Stool: Occult Blood - COMP Radiology data Recent Impressions: RADIOLOGY - XR CHEST 1 V 10/25 811 Report Impression - Status: SIGNED Entered: 10/25/2024 0858 IMPRESSION: Anticipated postsurgical changes of the chest with improving central congestion. Persistent retrocardiac opacity likely associated with atelectasis and associated small effusion. Small right effusion also suspected. Location: H2 Impression By: Moriah Bradshaw M.D. Diagnosis, Assessment Plan Problem list/A P: 1. Chest pain 2. CAD (coronary artery disease) 3. S/P CABG x 4 4. Postoperative anemia Free text A P: Patient is a 63-year-old male with multivessel coronary artery disease that status post CABG x 4 Coronary disease NSTEMI CABG x 4 Bilateral EVH ALAA PP History of hypertension History of hyperlipidemia post op anemia 10/25 No significant issues overnight. Having bowel movements. Abdomen soft. Tolerating well p.o. Today H H remained stable. No signs of active bleeding. Room air. Plan Neuro:multimodal pain control pain well-controlled Respiratory: Pulmonary hygiene, incentive spirometry,ABG and CXR reviewed Cardiovascular: Continue beta-fletcher, amlodipine , PO amiodarone Renal: strict I/Os, monitor Cr and electrolytes, replete diuresis with Lasix GI: PPI, advance diet, bowel regimen ID: trend WBC, cont periop ABx per protocol Hem: monitor Hgb and CTs output, transfuse as needed, correct coagulopathy. ASA/ plavix when able. Endo: Sliding scale insulin Misc: PTOT consult, DVT and GI ppx with SCD and PPI Consultants: cardiology Critical care time: Minutes: 35 at 1029 RPT #:[id number] END OF REPORT [facility] 2024-10-25 06:45:00 [facility] Cardiothoracic Surgery Prog REPORT#:[id number] REPORT STATUS: Signed REPORT INITIALIZATION DATE:10/25/24 TIME: 644 PATIENT: CLEO LONG UNIT #: [id number] ROOM/BED: [place] [id number] : 62 AGE: 63 SEX: M ATTEND: Shyla Zepeda MD ADM AUTHOR: Julisa Bhatti Physic REPT SERVICE DT/TIME: 10/25/24 0645 * ALL edits or amendments must be made on the electronic/computer document * General Post-op: day 4 Status post: 10/21/2024 1. Coronary artery bypass graft surgery x4 (NIEVES to LAD, saphenous vein to diagonal, saphenous vein to first marginal, saphenous vein to second marginal). 2. Amputation of left atrial appendage. 3. Endoscopic vein harvest independent bilateral greater saphenous vein. 4. Posterior pericardiotomy. Subjective Chief complaint: s/p CABG Review of Systems Constitutional: Reports: fatigue. Denies: chills, fever, generalized weakness. Skin: Denies: abrasion, contusion, ecchymosis. Allergy/Immun: Denies: allergic reaction, hives, rhinorrhea. Eyes: Denies: redness, itching, diplopia. Respiratory: Reports: BAIG (dyspnea on exertion). Denies: hemoptysis, non productive cough, pleuritic pain. Cardiovascular: Denies: chest pain, palpitations. GI: Denies: abdominal pain, nausea, vomiting. Heme: Denies: adenopathy, bleeding, bruising. Endocrine: Denies: cold intolerance, heat intolerance, polyphagia. Neuro: Denies: confusion, dizziness, seizure, syncope. All systems rev neg: except as marked Objective General VS/I O Last Documented: Result Date Time Pulse Ox 96 10/25 06 B/P 134/63 10/25 06 B/P Mean 90 10/25 0602 Pulse 66 10/25 0602 Resp 21 10/25 06 FiO2 21 10/25 0411 O2 Delivery Room air 10/25 041 Temp 98.6 10/25 0400 O2 Flow Rate 3 10/23 1121 24 hour I O ending at 0700: 10/25 0700 10/24 1900 Intake Total 390 Output Total 350 800 Balance 40 -800 Intake, Oral 390 Number 3 Bowel Movements Output, Urine 350 800 Patient 75 kg Weight Weight Standing scale Measurement Method PATIENT WEIGHT: Weight (lb): 165 Weight (oz): 5.55 Weight (kg): 75.000 Physical Exam Wound/incision: Location: sternum Site condition: dressing clean dry, dressing intact, edges approximated HEENT: anicteric, mucosal membranes moist, pupils reactive to light Neck: full range of motion, non-tender Cardiovascular: normal heart sounds, regular rate rhythm Respiratory: decreased breath sounds, wheezing, symmetric expansion, no distress Abdomen: soft, non-tender Genitourinary: no bladder distention, no flank pain Extremities: dry, moves all Musculoskeletal: full range of motion, painless range of motion 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: alert, oriented X 3 Skin: dry, intact Psychiatry: normal affect, normal mood Quality: Trauma Gen Surg Current Medications Current medication review: Current Medications Sig/Nia Start time Last Medication Dose Route Stop Time Status Admin Aspirin 81 MG BEDTIME 10/15 2100 AC PO 01/13 205 Acetaminophen 650 MG Q6H PRN PRN 10/15 1030 AC PO 01/13 1029 Clopidogrel Bisulfate 75 MG DAILY 10/15 1030 AC PO 01/13 1029 Morphine Sulfate 2 MG Q4H PRN PRN 10/15 1030 AC IV 10/20 1029 Ondansetron HCl 4 MG Q4H PRN PRN 10/15 1030 AC IV 01/13 1029 Albuterol/Ipratropium 3 ML X1ED STA 10/14 2127 DC 10/14 NEB 10/14 Aspirin 324 MG X1ED STA 10/14 2105 DC PO 10/14 2106 Home Medications: FUROSEMIDE (LASIX) 20 MG PO DAILY LOSARTAN 100 MG PO DAILY SPIRONOLACTONE (ALDACTONE) 25 MG PO DAILY ASPIRIN 81 MG PO DAILY CARVEDILOL (carvediloL) 12.5 MG PO BID CLOPIDOGREL (PLAVIX) 75 MG PO DAILY ATORVASTATIN (LIPITOR) 80 MG PO BEDTIME I attest that the foregoing medication list in the medical record is true, accurate, and complete to the best of my knowledge. Diagnosis, Assessment Plan Hospital course to date: This is a 63-year-old male with a past medical history of HTN, HLD, CHF and CAD with s/p 7 stents who presented with complaints of chest pain. The pain did not radiate. Labs include troponin of 71, and all other labs unremarkable. Patient was transferred to [facility] from [facility] due to NSTEMI. He denies recent fever, cough, shortness of breath, or edema. 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 Left circumflex large dominant vessel first obtuse marginal is patent has stents that looks fine another stent in the mid circumflex beyond the obtuse marginal that has 80 to 90% focal severe restenosis otherwise circumflex distally has diffuse disease distal disease. RCA small nondominant vessel. CV surgery consulted for evaluation of multi-vessel coronary artery disease. Dr. Ko has seen and examined the patient. Thank you for this kind consultation. Assessment/Plan: 1. Multi-vessel coronary artery disease s/p stents 2. Hypertension 3. Hyperlipidemia Patient not able to answer questions due to sedation effects following [place] CABG workup initiated CT chest w/o contrast Vein mapping and marking Carotid US Urinalysis MRSA/MSSA Hemoglobin A1C Patient seen and examined by Dr. Ko. All questions answered. 10/17/24 Patient alert, awake, oriented, denies any chest pain Breathing comfortable on room air, encourage incentive spirometer teaching Labs and imaging reviewed Last dose of Plavix on 10/16, check platelet response to Plavix Urinalysis negative Hemoglobin A1c 5.[address] chest and MRSA/MSSA Carotid duplex shows 50 to 69% right internal carotid artery stenosis Vein mapping reviewed, veins not visualized on left knee and calf area Echocardiogram shows EF 35 to 39%, moderate to severe diffuse hypokinesis, grade 1 diastolic dysfunction, aortic valve thickening consistent with sclerosis, mild MR, small to moderate pericardial effusion Transfer to CVN 1 Further recommendations to follow Patient seen and examined by Dr. Ko, discussed plan of care with patient, questions were answered 10/18/24 Patient alert, awake, oriented, denies any chest pain Breathing comfortable on room air, encourage incentive spirometer teaching Labs and imaging reviewed, patient had positive drug screen amphetamines and cannabis, educated patient on drug cessation Last dose of Plavix on 10/16, check platelet response to Plavix-87 Urinalysis negative Hemoglobin A1c 5.[address] chest and MRSA/MSSA- Carotid duplex shows 50 to 69% right internal carotid artery stenosis Vein mapping reviewed, veins not visualized on left knee and calf area Echocardiogram shows EF 35 to 39%, moderate to severe diffuse hypokinesis, grade 1 diastolic dysfunction, aortic valve thickening consistent with sclerosis, mild MR, small to moderate pericardial effusion Plan for surgery in upcoming week once platelet response to Plavix improved Patient seen and examined by Dr. Ko, discussed plan of care with patient, questions were answered. 10/19/24 Patient alert, awake, oriented, denies any chest pain Breathing comfortable on room air, encourage incentive spirometer teaching Labs and imaging reviewed, patient had positive drug screen amphetamines and cannabis, educated patient on drug cessation Last dose of Plavix on 10/16, check platelet response to Plavix-87 - Repeat Platelet response and TEG tomorrow morning Urinalysis negative Hemoglobin A1c 5.3 CT chest completed, showing Cardiomegaly with a 2 cm thick pericardial effusion MRSA/MSSA negative Carotid duplex shows 50 to 69% right internal carotid artery stenosis Vein mapping reviewed, veins not visualized on left knee and calf area Echocardiogram shows EF 35 to 39%, moderate to severe diffuse hypokinesis, grade 1 diastolic dysfunction, aortic valve thickening consistent with sclerosis, mild MR, small to moderate pericardial effusion Plan for surgery later in the week once platelet response to Plavix has improved Patient seen and examined by Dr. Ko, discussed plan of care with patient, questions were answered. 10/20/24 Patient alert, awake, oriented, denies any chest pain Breathing comfortable on room air, encourage incentive spirometer teaching Labs and imaging reviewed, patient had positive drug screen amphetamines and cannabis, educated patient on drug cessation Last dose of Plavix on 10/16, check platelet response to Plavix-87 -Platelet response today is 109, TEG completed ADP % inhibition 20.6, ADP 59.4 Urinalysis negative Hemoglobin A1c 5.3 CT chest completed, showing Cardiomegaly with a 2 cm thick pericardial effusion MRSA/MSSA negative Carotid duplex shows 50 to 69% right internal carotid artery stenosis Vein mapping reviewed, veins not visualized on left knee and calf area Echocardiogram shows EF 35 to 39%, moderate to severe diffuse hypokinesis, grade 1 diastolic dysfunction, aortic valve thickening consistent with sclerosis, mild MR, small to moderate pericardial effusion PFTs to be completed tomorrow Surgery will be scheduled later this week. Patient seen and examined by Dr. Ko, discussed plan of care with patient, questions were answered. 10/21/24 Events occurred yesterday and overnight, where patient had went missing for a couple hours during the evening and then the family was found vaping in the patient's room. Dr. Ko discussed with the patient the expectations and rules that must be followed while in the hospital. The patient understands, and agreed that he would abstain from any drug use or smoking. A drug toxicology screen was completed, positive for Cannabinoids. Patient will benefit from surgical revascularization, Dr. Ko explained to the patient and family the need for coronary artery bypass graft surgery. He explained in detail the operation, risks involved, STS risk score calculator, benefits, alternatives, and complications. Patient acknowledges understanding and is agreeable to proceed, all questions were answered and consent is obtained. Patient is scheduled for coronary artery bypass graft surgery this afternoon. 1. Coronary artery bypass graft surgery x4 (NIEVES to LAD, saphenous vein to diagonal, saphenous vein to first marginal, saphenous vein to second marginal). 2. Amputation of left atrial appendage. 3. Endoscopic vein harvest independent bilateral greater saphenous vein. 4. Posterior pericardiotomy. 10/22/24 POD 1 Patient alert, awake, oriented, reports pain uncontrolled Labs reviewed, hemoglobin 7.6, given 1 unit of PRBC yesterday, replace electrolytes as needed, creatinine 1.1 H H at noon Breathing comfortably on RA, encourage incentive spirometer use and deep breathing, nebs, chest x-ray reviewed Chest tube outputs LP 260cc, MS 270cc overnight, keep in place and continue monitoring, will reassess after ambulation Normal sinus rhythm, epicardial pacing wires on standby, monitoring blood pressure, CVP 7 Advance diet as tolerated, nutritional supplements, bowel regimen, monitoring BS Montiel, Urine output overnight 1020cc, strict I's O's, daily standing scale weights, +2428 24 hr- fluid balance PT/OT, OOB for all meals, encourage ambulation DVT prophylaxis with SCDs, GI prophylaxis with PPI Disposition: patient and family admitted yesterday they are not at one specific place living. Consult case management for possible SNF vs. rehab Continue supportive care ICC following Patient seen and examined by Dr. Ko. Discussed plan of care with patient, nurse and interdisciplinary team. All questions answered. 10/23/24 POD 2 Patient alert, awake, oriented, reports pain uncontrolled, on nitro gtt Labs reviewed, hgb 7.2, replace electrolytes as needed On 8L HFNC, wean as tolerated, encourage incentive spirometer use and deep breathing, nebs, chest x-ray reviewed Normal sinus rhythm, epicardial pacing wires on standby, monitoring blood pressure, increase BB to metoprolol 50mg BID, add amlodipine 5mg daily, CVP 8 Advance diet as tolerated, nutritional supplements, bowel regimen, monitoring BS Montiel, Urine output overnight 525cc, strict I's O's, daily standing scale weights, +479 24 hr- fluid balance, weight trending up PT/OT, OOB for all meals, encourage ambulation DVT prophylaxis with SCDs, GI prophylaxis with PPI Disposition: patient and family admitted they are not at one specific place living. Case management following, SNF vs. rehab Continue supportive care ICC following, DC montiel Patient seen and examined by Dr. Ko. Discussed plan of care with patient, nurse and interdisciplinary team. All questions answered. 10/24/24 POD 3 Patient alert, awake, oriented, reports pain improving. Labs reviewed, HGB 6.1- Moniotr Closely, repeat H7H this afternoon. replace electrolytes as needed On 4L, wean as tolerated, encourage incentive spirometer use and deep breathing, nebs, chest x-ray reviewed Normal sinus rhythm, epicardial pacing wires on standby, monitoring blood pressure, metoprolol 50mg BID, add amlodipine 5mg daily, Advance diet as tolerated, nutritonal supplements, bowel regimen, monitoring BS PT/OT, OOB for all meals, encourage ambulation DVT prophylaxis with SCDs, GI prophylaxis with PPI Disposition: patient and family admitted they are not at one specific place living. Case management following, SNF vs. rehab Continue supportive care ICC following, Patient seen and examined by Dr. Ko. Discussed plan of care with patient, nurse and interdisciplinary team. All questions answered. No signs of hemodynamic instability. repeat H H this afternoon. Continue OOB walking. 10/25/24 POD 4 Patient alert, awake, oriented, reports pain improving. Labs reviewed, HGB 6.4, slightly improved. No tachycardia no signs of hemodynamic instability replace electrolytes as needed On room air Normal sinus rhythm, epicardial pacing wires on standby, monitoring blood pressure, metoprolol 50mg BID, add amlodipine 5mg daily, Tolerating diet, reports bowel movements PT/OT, OOB for all meals, encourage ambulation DVT prophylaxis with SCDs, GI prophylaxis with PPI Disposition: patient and family admitted they are not at one specific place living. Rehab consulted Case management following, will need SNF vs. rehab Continue supportive care Will obtain DVT studies Patient seen and examined by Dr. Ko. Discussed plan of care with patient, nurse and interdisciplinary team. All questions answered. No signs of hemodynamic instability. repeat H H this afternoon. Continue OOB walking. Consultants: cardiology at 1337 at 6908 RPT #:[id number] END OF REPORT [facility] 2024-10-24 20:15:00 [facility] ([facility]) Hospitalist Progress Note REPORT#:[id number] REPORT STATUS: Signed REPORT INITIALIZATION DATE:10/24/24 TIME: 2014 PATIENT: CLEO LONG UNIT #: [id number] ROOM/BED: [place] [id number] : 61 AGE: 63 SEX: M ATTEND: Shyla Zepeda MD ADM AUTHOR: Sue John MD REPT SERVICE DT/TIME: 10/24/242014 * ALL edits or amendments must be made on the electronic/computer document * Subjective Chief complaint: he is seen in the afternoon . sit on chair . feel better . HPI: 63 years old male with PMH of HTN, CHF and CAD with 7 stents complaint of cp . pain did not radiate . he also found elevate troponin . he was transferred to the hospital from [facility] due to NSTEMI . no fever no cough no sob no edema no nausea no vomiting no rosalind pain no dysuria no dizziness no syncope no neurology deficit . Review of Systems All systems rev neg: except as noted Objective General VS/I O: Vital Signs: Date Time Temp Pulse Resp B/P B/P Pulse O2 O2 Flow FiO2 Mean Ox Delivery Rate 10/24 1500 64 28 123/60 86 98 10/24 1400 63 26 112/59 79 96 10/24 1301 62 26 97/53 70 97 10/24 1201 59 25 98/56 74 10/24 1140 92 Room air 10/24 1100 72 16 127/59 85 96 10/24 1000 71 23 118/66 85 95 10/24 0900 71 20 120/56 80 96 10/24 0808 92 Room air 10/24 0800 68 21 109/60 78 94 10/24 0701 66 22 129/62 89 96 10/24 0605 69 27 105/59 75 92 10/24 0500 68 15 158/71 102 96 10/24 0400 37.1 10/24 0400 63 15 113/61 81 97 10/24 0300 62 22 103/55 76 100 10/24 0253 92 Room air 21 10/24 0200 91/54 68 10/24 0200 63 18 87/38 55 95 10/24 0100 120/56 81 10/24 0100 65 20 123/43 66 100 10/24 0000 37.0 10/24 0000 BiPAP 40 10/24 0000 107/59 79 10/24 0000 68 21 115/41 62 100 10/23 2302 71 100 30 10/23 2300 72 25 165/55 84 100 10/23 2211 74 100 30 10/23 2211 100 BiPAP 30 10/23 2200 126/58 84 10/23 2200 74 24 143/49 74 100 10/23 2100 145/55 93 10/23 2100 78 20 184/55 90 96 24 hour I O ending at 0700: 10/24 0700 10/23 1900 Intake Total 295.00 829.80 Output Total 960 1080 Balance -665.00 -250.20 Intake, IV 175.00 9.80 Intake, Oral 120 820 Number Voids 5 Output, Urine 960 1080 Patient 73.6 kg Weight Weight Standing scale Measurement Method PATIENT WEIGHT: Weight (lb): 162 Weight (oz): 4.16 Weight (kg): 73.600 Medications: Active Meds + DC'd Last 24 Hrs Melatonin (Melatonin) 6 MG BEDTIME PRN PRN PO Ipratropium [place] (ATROVENT) 500 MCG RTQ2H PRN PRN INH Cyanocobalamin (Vitamin B-12 500 mcg tab) 500 MCG DAILY PO Ferrous Sulfate (FERROUS SULFATE) 325 MG DAILY PO Bisacodyl (DULCOLAX) 10 MG ONCE PRN RECTAL Hydralazine HCl (APRESOLINE) 50 MG Q8H PRN PRN PO Amlodipine Besylate (NORVASC) 5 MG DAILY PO Metoprolol Tartrate (LOPRESSOR) 50 MG Q12HR PO Clopidogrel Bisulfate (Plavix) 75 MG DAILY PO Polyethylene Glycol (MIRALAX) 17 GM DAILY PO Pantoprazole (PROTONIX) 40 MG DAILY@0600 PO Atorvastatin Calcium (LIPITOR) 40 MG 2100 PO Docusate Sodium (COLACE) 100 MG BID PO Sennosides (Senna Lax 8.6 MG TABLET) 17.2 MG BEDTIME PO Aspirin (ASPIRIN) 81 MG DAILY PO Amiodarone HCl (CORDARONE) 200 MG TID PO Ipratropium [place] (ATROVENT) 500 MCG RTQ4H INH (DC) Acetaminophen (TYLENOL) 650 MG Q4H PRN PRN PO Acetaminophen (TYLENOL) 650 MG Q4H PRN PRN RECTAL Calcium Chloride (CALCIUM CHLORIDE) 1 GM ASDIR PRN IV Dextrose/Water (DEXTROSE 10% IN WATER) 125 ML ASDIR PRN IV (CKD) Dextrose/Water (DEXTROSE 10% IN WATER) 250 ML ASDIR PRN IV (CKD) Epinephrine (ADRENALIN CHLORIDE) 4 MG ASDIR IV Dextrose/Water (DEXTROSE 5% WATER) 246 ML Glucagon (GLUCAGON) 1 MG ASDIR PRN IM Insulin Human Regular (MYXREDLIN 100 UNITS/NS 100ML) 100 ML ASDIR IV ( CKD) Magnesium Sulfate (MAGNESIUM SULFATE 4GM/SWFI 100ML) 100 ML ASDIR PRN IV Magnesium Sulfate (MAGNESIUM SULFATE 2GM/SWFI 50ML) 50 ML ASDIR PRN IV Magnesium Sulfate/Dextrose (MAGNESIUM SULFATE 1GM/D5W 100ML) 100 ML ASDIR PRN IV Mupirocin (BACTROBAN 2% 22 GM OINTMENT) 1 APPLIC BID NASAL Nitroglycerin/Dextrose (NITROGLYCERIN 50,000MCG/D5W 250ML) 250 ML ASDIR IV Norepinephrine/Dextrose (Norepinephrine 8 MG/D5W 250 mL) 250 ML TITRATE IV Ondansetron HCl (ZOFRAN) 4 MG Q6H PRN PRN IV Oxycodone HCl (ROXICODONE) 5 MG Q4H PRN PRN PO Oxycodone HCl (ROXICODONE) 10 MG Q4H PRN PRN PO Potassium Chloride (KCL 20MEQ/SWFI 100ML) 100 ML ASDIR PRN IV Sodium Bicarbonate (SODIUM BICARBONATE) 50 MEQ ASDIR PRN IV Sodium Chloride (SODIUM CHLORIDE 0.9%) 250 ML Q24H IV Physical Exam General appearance: alert, awake, oriented Head/Eyes: atraumatic, normal conjunctiva/sclera, normal eyelids/periorb. Neck: full range of motion, non-tender, normal thyroid Cardiovascular: normal heart sounds, regular rate rhythm Respiratory: aerating well, clear to auscultation Abdomen: non-tender, normal bowel sounds, soft, no distention Extremities: moves all, no calf tenderness, no edema 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: alert, oriented X 3, CNII-XII intact, normal speech, no motor deficits, no sensory deficits Skin: dry, intact Psychiatry: normal affect, normal judgment/insight Results Findings/Data: Laboratory Tests 10/24 0202 Chemistry Sodium (134 - 147 mEq/L) 141 Potassium (3.4 - 5.0 mEq/L) 3.8 Chloride (100 - 108 mEq/L) 107 Carbon Dioxide (21 - 33 mEq/l) 25 Anion Gap (0 - 20) 13 BUN (7 - 25 mg/dL) 27 H Creatinine (0.6 - 1.3 mg/dL) 0.9 Glomerular Filtr Rate (80 - 90) 96.6 H Glucose (77 - 141 mg/dL) 111 Calcium (8.0 - 10.5 mg/dL) 8.1 Magnesium (1.6 - 2.6 mg/dL) 2.17 Total Bilirubin (0.0 - 1.0 mg/dL) 0.50 Direct Bilirubin (0.1 - 0.3 MG/DL) 0.20 Indirect Bilirubin (MG/DL) 0.30 AST (8 - 34 IUnit/L) 30 ALT (10 - 49 IUnit/L) 17 Total Alk Phosphatase (20 - 125 IUnit/L) 56 Total Protein (6.4 - 8.2 g/dL) 5.6 L Albumin (3.4 - 5.0 g/dL) 2.40 L Laboratory Tests 10/24 10/24 0244 0202 Hematology WBC (4.5 - 11.0 x10 3/uL) 13.4 H RBC (4.00 - 5.60 x10 6/uL) 2.17 L Hgb (12.5 - 16.9 g/dL) 6.1 *L 6.3 *L Hct (37.5 - 50.7 %) 18.9 L 19.1 L MCV (81.0 - 99.0 fL) 88.0 MCH (27.0 - 33.0 pg) 29.0 MCHC (33.0 - 37.0 g/dL) 33.0 RDW (11.5 - 14.5 %) 14.3 Plt Count (150 - 400 x10 3/uL) 265 MPV (7.0 - 9.0 fL) 9.1 H Neut % (Auto) (56.0 - 77.0 %) 76.5 Lymph % (Auto) (14.0 - 32.0 %) 13.6 L [place] % (Auto) (4.8 - 9.0 %) 7.0 Eos % (Auto) (0.3 - 3.7 %) 2.2 Baso % (Auto) (0.0 - 2.0 %) 0.1 Neut # (Auto) (2.0 - 7.6 x10 3/uL) 10.26 H Lymph # (Auto) (1.0 - 3.8 x10 3/uL) 1.82 [place] # (Auto) (0.1 - 0.8 x10 3/uL) 0.94 H Eos # (Auto) (0.0 - 0.2 x10 3/uL) 0.30 H Baso # (Auto) (0.0 - 0.2 x10 3/uL) 0.02 Abs Immat Gran (auto) (0.00 - 0.03 x10 3/uL) 0.08 H Immature Gran % (0.0 - 2.0 %) 0.6 Nucleated RBC % (0 - 0 %) 0.0 Nucleated RBCs # (Man) (0.0 - 0.1 x10 3/uL) 0.00 Microbiology Date/Time Procedure - Status Source Growth 10/24 0815 Occult Blood - COMP Stool Diagnosis, Assessment Plan Consultants: cardiology Free Text DxA P Notes Free text DxA P notes: 63 YO male with CAD with stent Substance use HTN heart disease with HF Chronic systolic HF EF 35-39% Right carotid stenosis 50-69% anemia -- due to acute blood loss 10/15 tele cardiology consult continue ASA/plavix /lipitor CHF -- continue lasix and aldactone -- cozaar HTN- continue coreg 10/16- no cp no sob -- cath today -- post cath -- CABG evaluation 10/17 CABG next week, medically stable to proceed 10/18 CABG next week, Chest CT scan showed ? Pericardal effusion. stable to proceed 10/19 Vitals and labs stable today. No acute complaints. CABG later then week per surgeon. 10/20 labs and vitals remains stable. CABG later this week when surgery schedules. 10/22 S/P CABG 10/21. Continue postop care per CT surgery in ICU. Monitor chest tube OP. Monitor hgb, transfuse if hgb <7. S/P 1 unit PRBC. PT/OT for OOB. DC planning, possible SNF vs IPR. 10/23 Continue post-op care. PT/OT. Chest tubes out. Labs noted, CMP ok. Monitor Hgb and WBC. Rehab eval. 10/24- he sit on the chair no sob no dizziness -- he is hemodynamic stable -- HB-- 6.3- 6.1-- monitor H H --blood transfuse as CV surgeon and critical care --continue monitor in CV icu -- lab review at 2028 RPT #:[id number] END OF REPORT [facility] 2024-10-24 07:22:00 [facility]) Critical Care Progress Note REPORT#:[id number] REPORT STATUS: Signed REPORT INITIALIZATION DATE:10/24/24 TIME: 721 PATIENT: CLEO LNOG UNIT #: [id number] ROOM/BED: [place] [id number] : 61 AGE: 63 SEX: M ATTEND: Shyla Zepeda MD ADM AUTHOR: Rickey Kerr MD REPT SERVICE DT/TIME: 10/24/24721 * ALL edits or amendments must be made on the electronic/computer document * Subjective Chief complaint: CAD HPI: Patient is a 63-year-old male with past medical history of hypertension, hyperlipidemia, CHF and coronary artery disease with 7 previous stents. Patient presented with chest pain. His left heart cath on the sixth that showed multivessel coronary artery disease. He underwent CABG x 4 today with CV surgery. He is not the CVICU for postoperative care. His postoperative echo had an EF of 50% on epi of 3. He was also on vasopressin 0.02 and on small dose of norepinephrine. He received 1 L of crystalloid intraoperatively and 250 of Cell Saver. He also received 2 units of platelets and 2 FFP. Currently sinus rhythm in the 60s and quickly titrating down on drips. Sedation is off. His paralytic was reversed. He was started on spontaneous breathing trial. Postop labs, EKG, chest x-ray pending. He is noted to have increased output out of his mediastinal drain. He put out 130 of sanguinous output in 1 hour. Tag sent and will give another FFP and platelet. 10/22: Patient seen and evaluated bedside. No acute events overnight. Is on room air. Started on nitro for high blood pressure this morning. Complaining of pain at chest tube site 10/23: Patient seen and evaluated bedside. No acute events overnight. Remains on nitro infusion for hypertension. Is on 3 L nasal cannula. Pain is better controlled. Will increase beta-fletcher today and start amlodipine. 10/24 Seen evaluated this morning. Patient's been doing fairly well. Of any drips. On room air. Pain is well-controlled. H H trended downwards with a hemoglobin of 6.3 this morning from 7.2. No signs of active bleeding. No tachycardia blood pressure stable's. Discussed with cardiac surgery at this time we will be watching only unless there is any changes in hemodynamics. Patient feels okay ambulating. Did have a large liquid bowel movement. Hemoccult has been sent. No fevers. Objective General VS/I O Last Documented: Result Date Time Pulse Ox 92 10/24 0605 B/P 105/59 10/24 0605 B/P Mean 75 10/24 0605 Pulse 69 10/24 0605 Resp 27 10/24 0605 Temp 98.8 10/24 0400 FiO2 21 10/24 0253 O2 Delivery Room air 10/24 0253 O2 Flow Rate 3 10/23 1121 24 hour I O ending at 0700: 10/24 0700 10/23 1900 Intake Total 295.00 829.80 Output Total 960 1080 Balance -665.00 -250.20 Intake, IV 175.00 9.80 Intake, Oral 120 820 Number Voids 5 Output, Urine 960 1080 Patient 73.6 kg Weight Weight Standing scale Measurement Method PATIENT WEIGHT: Weight (lb): 162 Weight (oz): 4.16 Weight (kg): 73.600 Medications: Active Meds + DC'd Last 24 Hrs Ipratropium [place] (ATROVENT) 500 MCG RTQ2H PRN PRN INH Cyanocobalamin (Vitamin B-12 500 mcg tab) 500 MCG DAILY PO Ferrous Sulfate (FERROUS SULFATE) 325 MG DAILY PO Bisacodyl (DULCOLAX) 10 MG ONCE PRN RECTAL Magnesium Hydroxide (MILK OF MAGNESIA) 30 ML ONCE PRN PO (DC) Hydralazine HCl (APRESOLINE) 50 MG Q8H PRN PRN PO Amlodipine Besylate (NORVASC) 5 MG DAILY PO Metoprolol Tartrate (LOPRESSOR) 50 MG Q12HR PO Clopidogrel Bisulfate (Plavix) 75 MG DAILY PO Polyethylene Glycol (MIRALAX) 17 GM DAILY PO Pantoprazole (PROTONIX) 40 MG DAILY@0600 PO Atorvastatin Calcium (LIPITOR) 40 MG 2100 PO Docusate Sodium (COLACE) 100 MG BID PO Sennosides (Senna Lax 8.6 MG TABLET) 17.2 MG BEDTIME PO Aspirin (ASPIRIN) 81 MG DAILY PO Sodium Chloride (SODIUM CHLORIDE 0.9%) 100 ML ASDIR PRN IV (DC) Sodium Chloride (SODIUM CHLORIDE 0.9%) 100 ML ASDIR PRN IV (DC) Sodium Chloride (SODIUM CHLORIDE 0.9%) 100 ML ASDIR PRN IV (DC) Amiodarone HCl (CORDARONE) 200 MG TID PO Ipratropium [place] (ATROVENT) 500 MCG RTQ4H INH Acetaminophen (TYLENOL) 650 MG Q4H PRN PRN PO Acetaminophen (TYLENOL) 650 MG Q4H PRN PRN RECTAL Calcium Chloride (CALCIUM CHLORIDE) 1 GM ASDIR PRN IV Dextrose/Water (DEXTROSE 10% IN WATER) 125 ML ASDIR PRN IV (CKD) Dextrose/Water (DEXTROSE 10% IN WATER) 250 ML ASDIR PRN IV (CKD) Epinephrine (ADRENALIN CHLORIDE) 4 MG ASDIR IV Dextrose/Water (DEXTROSE 5% WATER) 246 ML Glucagon (GLUCAGON) 1 MG ASDIR PRN IM Insulin Human Regular (MYXREDLIN 100 UNITS/NS 100ML) 100 ML ASDIR IV ( CKD) Magnesium Sulfate (MAGNESIUM SULFATE 4GM/SWFI 100ML) 100 ML ASDIR PRN IV Magnesium Sulfate (MAGNESIUM SULFATE 2GM/SWFI 50ML) 50 ML ASDIR PRN IV Magnesium Sulfate/Dextrose (MAGNESIUM SULFATE 1GM/D5W 100ML) 100 ML ASDIR PRN IV Mupirocin (BACTROBAN 2% 22 GM OINTMENT) 1 APPLIC BID NASAL Nitroglycerin/Dextrose (NITROGLYCERIN 50,000MCG/D5W 250ML) 250 ML ASDIR IV Norepinephrine/Dextrose (Norepinephrine 8 MG/D5W 250 mL) 250 ML TITRATE IV Ondansetron HCl (ZOFRAN) 4 MG Q6H PRN PRN IV Oxycodone HCl (ROXICODONE) 5 MG Q4H PRN PRN PO Oxycodone HCl (ROXICODONE) 10 MG Q4H PRN PRN PO Potassium Chloride (KCL 20MEQ/SWFI 100ML) 100 ML ASDIR PRN IV Sodium Bicarbonate (SODIUM BICARBONATE) 50 MEQ ASDIR PRN IV Sodium Chloride (SODIUM CHLORIDE 0.9%) 250 ML Q24H IV Physical Exam General appearance: alert, awake, oriented, no acute distress Head/eyes: EOMI, PERRLA ENT: moist mucosal membranes Neck: non-tender, no JVD Cardiovascular: normal capillary refill, normal heart sounds, regular rate and rhythm Respiratory: decreased breath sounds, aerating well, no distress Abdomen: soft, non-tender, no guarding Extremities: moves all, normal capillary refill 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: alert, oriented X 3, CNII-XII intact, normal speech, no motor deficits, no sensory deficits Results Findings/data: Laboratory Tests 10/24 0202 Chemistry Sodium (134 - 147 mEq/L) 141 Potassium (3.4 - 5.0 mEq/L) 3.8 Chloride (100 - 108 mEq/L) 107 Carbon Dioxide (21 - 33 mEq/l) 25 Anion Gap (0 - 20) 13 BUN (7 - 25 mg/dL) 27 H Creatinine (0.6 - 1.3 mg/dL) 0.9 Glomerular Filtr Rate (80 - 90) 96.6 H Glucose (77 - 141 mg/dL) 111 Calcium (8.0 - 10.5 mg/dL) 8.1 Magnesium (1.6 - 2.6 mg/dL) 2.17 Total Bilirubin (0.0 - 1.0 mg/dL) 0.50 Direct Bilirubin (0.1 - 0.3 MG/DL) 0.20 Indirect Bilirubin (MG/DL) 0.30 AST (8 - 34 IUnit/L) 30 ALT (10 - 49 IUnit/L) 17 Total Alk Phosphatase (20 - 125 IUnit/L) 56 Total Protein (6.4 - 8.2 g/dL) 5.6 L Albumin (3.4 - 5.0 g/dL) 2.40 L Laboratory Tests 10/244 0202 Hematology WBC (4.5 - 11.0 x10 3/uL) 13.4 H RBC (4.00 - 5.60 x10 6/uL) 2.17 L Hgb (12.5 - 16.9 g/dL) 6.1 *L 6.3 *L Hct (37.5 - 50.7 %) 18.9 L 19.1 L MCV (81.0 - 99.0 fL) 88.0 MCH (27.0 - 33.0 pg) 29.0 MCHC (33.0 - 37.0 g/dL) 33.0 RDW (11.5 - 14.5 %) 14.3 Plt Count (150 - 400 x10 3/uL) 265 MPV (7.0 - 9.0 fL) 9.1 H Neut % (Auto) (56.0 - 77.0 %) 76.5 Lymph % (Auto) (14.0 - 32.0 %) 13.6 L [place] % (Auto) (4.8 - 9.0 %) 7.0 Eos % (Auto) (0.3 - 3.7 %) 2.2 Baso % (Auto) (0.0 - 2.0 %) 0.1 Neut # (Auto) (2.0 - 7.6 x10 3/uL) 10.26 H Lymph # (Auto) (1.0 - 3.8 x10 3/uL) 1.82 [place] # (Auto) (0.1 - 0.8 x10 3/uL) 0.94 H Eos # (Auto) (0.0 - 0.2 x10 3/uL) 0.30 H Baso # (Auto) (0.0 - 0.2 x10 3/uL) 0.02 Abs Immat Gran (auto) (0.00 - 0.03 x10 3/uL) 0.08 H Immature Gran % (0.0 - 2.0 %) 0.6 Nucleated RBC % (0 - 0 %) 0.0 Nucleated RBCs # (Man) (0.0 - 0.1 x10 3/uL) 0.00 Laboratory Tests 10/24/24 0244: [Embedded Image Not Available] 10/24/24 0202: [Embedded Image Not Available] Microbiology: 10/24 815 Stool: Occult Blood - COMP Diagnosis, Assessment Plan Problem list/A P: 1. Chest pain 2. CAD (coronary artery disease) 3. S/P CABG x 4 4. Postoperative anemia Free text A P: Patient is a 63-year-old male with multivessel coronary artery disease that is postop day 0 status post CABG x 4 Coronary disease NSTEMI CABG x 4 Bilateral EVH ALAA PP History of hypertension History of hyperlipidemia post op anemia 10/24 Doing fairly well. [place] [address] recheck 6 1. Likely secondary to frequent sampling. No signs of active bleeding no tachycardia blood pressure stable. Hemoccult sent pending. Transfuse only if there is any symptomatic issues. Monitor closely. On room air. No drips. Plan Neuro:multimodal pain control pain well-controlled Respiratory: Pulmonary hygiene, incentive spirometry,ABG and CXR reviewed Cardiovascular: Continue beta-fletcher, amlodipine , PO amiodarone Renal: strict I/Os, monitor Cr and electrolytes, GI: PPI, advance diet, bowel regimen ID: trend WBC, cont periop ABx per protocol Hem: monitor Hgb and CTs output, transfuse as needed, correct coagulopathy. ASA/ plavix when able. Endo: Sliding scale insulin Misc: PTOT consult, DVT and GI ppx with SCD and PPI Consultants: cardiology Plan discussed with: patient, admitting physician, nurse, interdisc care team Critical care time: Minutes: 35 at 1046 RPT #:[id number] END OF REPORT [facility] 2024-10-24 07:18:00 [facility] ([facility]) Cardiology Progress Note REPORT#:[id number] REPORT STATUS: Signed REPORT INITIALIZATION DATE:10/24/24 TIME: 717 PATIENT: CLEO LONG UNIT #: [id number] ROOM/BED: [place] [id number] : 61 AGE: 63 SEX: M ATTEND: Shyla Zepeda MD ADM AUTHOR: Alec Norris MD REPT SERVICE DT/TIME: 10/24/24717 * ALL edits or amendments must be made on the electronic/computer document * Objective General VS/I O: 24 hour I O ending at 0700: 10/24 0700 10/23 1900 Intake Total 295.00 829.80 Output Total 960 1080 Balance -665.00 -250.20 Intake, IV 175.00 9.80 Intake, Oral 120 820 Number Voids 5 Output, Urine 960 1080 Patient 73.6 kg Weight Weight Standing scale Measurement Method Vital Signs: Date Time Temp Pulse Resp B/P B/P Pulse O2 O2 Flow FiO2 Mean Ox Delivery Rate 10/24 0605 69 27 105/59 75 92 10/24 0500 68 15 158/71 102 96 10/24 0400 37.1 10/24 0400 63 15 113/61 81 97 10/24 0300 62 22 103/55 76 100 10/24 0253 92 Room air 21 10/24 0200 91/54 68 10/24 0200 63 18 87/38 55 95 10/24 0100 120/56 81 10/24 0100 65 20 123/43 66 100 10/24 0000 37.0 10/24 0000 BiPAP 40 10/24 0000 107/59 79 10/24 0000 68 21 115/41 62 100 10/23 2302 71 100 30 10/23 2300 72 25 165/55 84 100 10/23 2211 74 100 30 10/23 2211 100 BiPAP 30 10/23 2200 126/58 84 10/23 2200 74 24 143/49 74 100 10/23 2100 145/55 93 10/23 2100 78 20 184/55 90 96 10/23 2000 37.2 10/23 2000 125/59 84 10/23 2000 77 23 145/50 74 94 10/23 1903 94 Room air 21 10/23 1900 142/56 91 10/23 1900 82 22 160/55 84 95 10/23 1801 146/66 97 10/23 1801 79 24 159/50 77 92 10/23 1700 83 144/59 82 85 10/23 1600 37.2 10/23 1600 143/65 93 10/23 1600 79 20 156/54 81 94 10/23 1530 111/67 85 10/23 1530 76 20 145/49 75 95 10/23 1511 94 Room air 21 10/23 1500 146/67 96 10/23 1500 75 22 156/53 84 95 10/23 1430 122/58 83 10/23 1430 74 17 125/46 68 94 10/23 1404 125/58 83 10/23 1404 74 115/44 64 94 10/23 1400 75 117/51 70 94 10/23 1331 115/59 78 10/23 1331 77 125/59 86 88 10/23 1300 100/57 73 10/23 1300 74 104/43 62 93 10/23 1230 74 19 106/42 61 95 10/23 1224 119/56 81 10/23 1200 37.2 10/23 1200 119/59 83 10/23 1200 74 22 113/47 66 92 10/23 1130 126/62 85 10/23 1130 72 22 108/49 68 79 10/23 1121 94 High flow 3 nasal cannula 10/23 1100 132/66 93 10/23 1100 75 16 140/49 73 97 10/23 1030 114/62 83 10/23 1030 72 20 126/49 69 96 10/23 1018 74 22 116/56 75 94 10/23 0945 130/72 94 10/23 0945 38.8 72 23 146/50 75 97 10/23 0930 38.8 72 17 139/47 73 97 10/23 0900 38.7 74 17 128/46 68 98 10/23 0830 38.7 83 22 133/45 68 95 10/23 0800 37.4 10/23 0800 Nasal 3 cannula 10/23 0800 116/55 79 10/23 0800 39.0 92 20 127/46 67 96 10/23 0741 93 High flow 3 nasal cannula 10/23 0732 38.8 90 124/48 67 91 10/23 0730 126/58 88 PATIENT WEIGHT: Weight (lb): 162 Weight (oz): 4.16 Weight (kg): 73.600 Medications: Active Meds + DC'd Last 24 Hrs Ipratropium [place] (ATROVENT) 500 MCG RTQ2H PRN PRN INH Cyanocobalamin (Vitamin B-12 500 mcg tab) 500 MCG DAILY PO Ferrous Sulfate (FERROUS SULFATE) 325 MG DAILY PO Hydralazine HCl (APRESOLINE) 50 MG Q8HR PO (DC) Bisacodyl (DULCOLAX) 10 MG ONCE PRN RECTAL Magnesium Hydroxide (MILK OF MAGNESIA) 30 ML ONCE PRN PO (DC) Hydralazine HCl (APRESOLINE) 50 MG Q8H PRN PRN PO Furosemide (LASIX 40 mg/4 mL INJECTION) 40 MG ONCE ONE IV (DC) Amlodipine Besylate (NORVASC) 5 MG DAILY PO Metoprolol Tartrate (LOPRESSOR) 50 MG Q12HR PO Clopidogrel Bisulfate (Plavix) 75 MG DAILY PO Polyethylene Glycol (MIRALAX) 17 GM DAILY PO Pantoprazole (PROTONIX) 40 MG DAILY@0600 PO Atorvastatin Calcium (LIPITOR) 40 MG 2100 PO Docusate Sodium (COLACE) 100 MG BID PO Sennosides (Senna Lax 8.6 MG TABLET) 17.2 MG BEDTIME PO Aspirin (ASPIRIN) 81 MG DAILY PO Sodium Chloride (SODIUM CHLORIDE 0.9%) 100 ML ASDIR PRN IV (DC) Sodium Chloride (SODIUM CHLORIDE 0.9%) 100 ML ASDIR PRN IV (DC) Sodium Chloride (SODIUM CHLORIDE 0.9%) 100 ML ASDIR PRN IV (DC) Amiodarone HCl (CORDARONE) 200 MG TID PO Ipratropium [place] (ATROVENT) 500 MCG RTQ4H INH Acetaminophen (TYLENOL) 650 MG Q4H PRN PRN PO Acetaminophen (TYLENOL) 650 MG Q4H PRN PRN RECTAL Calcium Chloride (CALCIUM CHLORIDE) 1 GM ASDIR PRN IV Dextrose/Water (DEXTROSE 10% IN WATER) 125 ML ASDIR PRN IV (CKD) Dextrose/Water (DEXTROSE 10% IN WATER) 250 ML ASDIR PRN IV (CKD) Epinephrine (ADRENALIN CHLORIDE) 4 MG ASDIR IV Dextrose/Water (DEXTROSE 5% WATER) 246 ML Glucagon (GLUCAGON) 1 MG ASDIR PRN IM Insulin Human Regular (MYXREDLIN 100 UNITS/NS 100ML) 100 ML ASDIR IV ( CKD) Magnesium Sulfate (MAGNESIUM SULFATE 4GM/SWFI 100ML) 100 ML ASDIR PRN IV Magnesium Sulfate (MAGNESIUM SULFATE 2GM/SWFI 50ML) 50 ML ASDIR PRN IV Magnesium Sulfate/Dextrose (MAGNESIUM SULFATE 1GM/D5W 100ML) 100 ML ASDIR PRN IV Mupirocin (BACTROBAN 2% 22 GM OINTMENT) 1 APPLIC BID NASAL Nitroglycerin/Dextrose (NITROGLYCERIN 50,000MCG/D5W 250ML) 250 ML ASDIR IV Norepinephrine/Dextrose (Norepinephrine 8 MG/D5W 250 mL) 250 ML TITRATE IV Ondansetron HCl (ZOFRAN) 4 MG Q6H PRN PRN IV Oxycodone HCl (ROXICODONE) 5 MG Q4H PRN PRN PO Oxycodone HCl (ROXICODONE) 10 MG Q4H PRN PRN PO Potassium Chloride (KCL 20MEQ/SWFI 100ML) 100 ML ASDIR PRN IV Sodium Bicarbonate (SODIUM BICARBONATE) 50 MEQ ASDIR PRN IV Sodium Chloride (SODIUM CHLORIDE 0.9%) 250 ML Q24H IV Physical Exam General appearance: alert, awake Cardiovascular: CV assessment: regular rate and rhythm, BP pulses = bilaterally, normal heart sounds, pedal pulses present, no ectopy, no heave, no murmur Respiratory: clear to auscultation 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: no motor deficits Results Findings/Data: Laboratory Tests 10/23 1021 Blood Gas Puncture Site R Radial O2 Saturation (90 - 100 %) 94.4 ABG pH (7.35 - 7.45) 7.523 *H ABG pCO2 (35.0 - 45 mmHg) 26.4 *L ABG pO2 (80 - 100.0 mmHg) 62.7 L ABG HCO3 (22.0 - 26.0 MMOL/L) 21.7 L ABG Total CO2 (22 - 29) 22.5 ABG Base Excess (0 - +/ MMOL/L) -1.1 L ABG Hematocrit (38 - 51 %) 23 L ABG Hemoglobin (12.5 - 16.9 G/DL) 7.7 L Eduarda Test N/A Sodium (134 - 147 mmol/L) 138 Potassium (3.4 - 5.0 mmol/L) 4.0 Chloride (100 - 108 mmol/L) 105 Ionized Calcium (1.12 - 1.32 MMOL/L) 1.16 Lactic Acid (0.9 - 1.7 mmol/l) 2.3 H O2 Delivery Device Cannula Laboratory Tests 10/24 10/23 10/23 0202 1021 1010 Chemistry Sodium (134 - 147 mEq/L) 141 Potassium (3.4 - 5.0 mEq/L) 3.8 Chloride (100 - 108 mEq/L) 107 Carbon Dioxide (21 - 33 mEq/l) 25 Anion Gap (0 - 20) 13 BUN (7 - 25 mg/dL) 27 H Creatinine (0.6 - 1.3 mg/dL) 0.9 POC Creatinine (0.6 - 1.3 mg/dL) 0.9 Glomerular Filtr Rate (80 - 90) 96.6 H Glucose (77 - 141 mg/dL) 111 POC Glucose (70 - 110 MG/DL) 99 POC Glucose (mg/dL) (70 - 110 MG/DL) 124 H Calcium (8.0 - 10.5 mg/dL) 8.1 Magnesium (1.6 - 2.6 mg/dL) 2.17 Total Bilirubin (0.0 - 1.0 mg/dL) 0.50 Direct Bilirubin (0.1 - 0.3 MG/DL) 0.20 Indirect Bilirubin (MG/DL) 0.30 AST (8 - 34 IUnit/L) 30 ALT (10 - 49 IUnit/L) 17 Total Alk Phosphatase (20 - 125 IUnit/L) 56 Total Protein (6.4 - 8.2 g/dL) 5.6 L Albumin (3.4 - 5.0 g/dL) 2.40 L Laboratory Tests 10/24 10/24 0244 0202 Hematology WBC (4.5 - 11.0 x10 3/uL) 13.4 H RBC (4.00 - 5.60 x10 6/uL) 2.17 L Hgb (12.5 - 16.9 g/dL) 6.1 *L 6.3 *L Hct (37.5 - 50.7 %) 18.9 L 19.1 L MCV (81.0 - 99.0 fL) 88.0 MCH (27.0 - 33.0 pg) 29.0 MCHC (33.0 - 37.0 g/dL) 33.0 RDW (11.5 - 14.5 %) 14.3 Plt Count (150 - 400 x10 3/uL) 265 MPV (7.0 - 9.0 fL) 9.1 H Neut % (Auto) (56.0 - 77.0 %) 76.5 Lymph % (Auto) (14.0 - 32.0 %) 13.6 L [place] % (Auto) (4.8 - 9.0 %) 7.0 Eos % (Auto) (0.3 - 3.7 %) 2.2 Baso % (Auto) (0.0 - 2.0 %) 0.1 Neut # (Auto) (2.0 - 7.6 x10 3/uL) 10.26 H Lymph # (Auto) (1.0 - 3.8 x10 3/uL) 1.82 [place] # (Auto) (0.1 - 0.8 x10 3/uL) 0.94 H Eos # (Auto) (0.0 - 0.2 x10 3/uL) 0.30 H Baso # (Auto) (0.0 - 0.2 x10 3/uL) 0.02 Abs Immat Gran (auto) (0.00 - 0.03 x10 3/uL) 0.08 H Immature Gran % (0.0 - 2.0 %) 0.6 Nucleated RBC % (0 - 0 %) 0.0 Nucleated RBCs # (Man) (0.0 - 0.1 x10 3/uL) 0.00 Laboratory Tests 10/24 0202 Chemistry Magnesium (1.6 - 2.6 mg/dL) 2.17 Diagnosis, Assessment Plan Free Text DxA P Notes Free Text DxA P Notes: 1. CAD: Two-vessel, plan for CABG sometime next week. 2. Hyperlipidemia: Continue statin 3. Hypertension: Continue carvedilol s/p cabg today extubated chest tubes in place stable hemodynamics no symptoms clinically better at [address] [place] [address] #:[id number] END OF REPORT [facility] 2024-10-24 05:45:00 [facility] Cardiothoracic Surgery Prog REPORT#:[id number] REPORT STATUS: Signed REPORT INITIALIZATION DATE:10/24/24 TIME: 05 PATIENT: CLEO LONG UNIT #: [id number] ROOM/BED: [place] [address] : 62 AGE: 63 SEX: M ATTEND: Shyla Zepeda MD ADM AUTHOR: Julisa Bhatti Physic REPT SERVICE DT/TIME: 10/24/24 0545 * ALL edits or amendments must be made on the electronic/computer document * General Post-op: day 3 Status post: 10/21/2024 1. Coronary artery bypass graft surgery x4 (NIEVES to LAD, saphenous vein to diagonal, saphenous vein to first marginal, saphenous vein to second marginal). 2. Amputation of left atrial appendage. 3. Endoscopic vein harvest independent bilateral greater saphenous vein. 4. Posterior pericardiotomy. Subjective Chief complaint: s/p CABG Review of Systems Constitutional: Reports: fatigue. Denies: chills, fever, generalized weakness. Skin: Denies: abrasion, contusion, ecchymosis. Allergy/Immun: Denies: allergic reaction, hives, rhinorrhea. Eyes: Denies: redness, itching, diplopia. Respiratory: Reports: BAIG (dyspnea on exertion). Denies: hemoptysis, non productive cough, pleuritic pain. Cardiovascular: Denies: chest pain, palpitations. GI: Denies: abdominal pain, nausea, vomiting. Heme: Denies: adenopathy, bleeding, bruising. Endocrine: Denies: cold intolerance, heat intolerance, polyphagia. Neuro: Denies: confusion, dizziness, seizure, syncope. All systems rev neg: except as marked Objective General VS/I O Last Documented: Result Date Time Temp 98.8 10/24 0400 Pulse Ox 97 10/24 0400 B/P 113/61 10/24 0400 B/P Mean 81 10/24 0400 Pulse 63 10/24 0400 Resp 15 10/24 0400 FiO2 21 10/24 0253 O2 Delivery Room air 10/24 0253 O2 Flow Rate 3 10/23 1121 24 hour I O ending at 0700: 10/24 0700 10/23 1900 Intake Total 829.80 Output Total 1080 Balance -250.20 Intake, IV 9.80 Intake, Oral 820 Number Voids 5 Output, Urine 1080 PATIENT WEIGHT: Weight (lb): 165 Weight (oz): 12.6 Weight (kg): 75.200 Physical Exam General appearance: alert, awake, oriented Wound/incision: Location: sternum Site condition: dressing clean dry, dressing intact, edges approximated HEENT: anicteric, mucosal membranes moist, pupils reactive to light Neck: full range of motion, non-tender Cardiovascular: normal heart sounds, regular rate rhythm Respiratory: decreased breath sounds, wheezing, symmetric expansion, no distress Abdomen: soft, non-tender Genitourinary: no bladder distention, no flank pain Extremities: dry, moves all Musculoskeletal: full range of motion, painless range of motion 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: alert, oriented X 3 Skin: dry, intact Psychiatry: normal affect, normal mood Quality: Trauma Gen Surg Current Medications Current medication review: Current Medications Sig/Nia Start time Last Medication Dose Route Stop Time Status Admin Aspirin 81 MG BEDTIME 10/15 2100 AC PO 01/13 205 Acetaminophen 650 MG Q6H PRN PRN 10/15 1030 AC PO 01/13 1029 Clopidogrel Bisulfate 75 MG DAILY 10/15 1030 AC PO 01/13 1029 Morphine Sulfate 2 MG Q4H PRN PRN 10/15 1030 AC IV 10/20 1029 Ondansetron HCl 4 MG Q4H PRN PRN 10/15 1030 AC IV 01/13 1029 Albuterol/Ipratropium 3 ML X1ED STA 10/14 2127 DC 10/14 NEB 10/14 Aspirin 324 MG X1ED STA 10/14 2105 DC PO 10/14 2106 Home Medications: FUROSEMIDE (LASIX) 20 MG PO DAILY LOSARTAN 100 MG PO DAILY SPIRONOLACTONE (ALDACTONE) 25 MG PO DAILY ASPIRIN 81 MG PO DAILY CARVEDILOL (carvediloL) 12.5 MG PO BID CLOPIDOGREL (PLAVIX) 75 MG PO DAILY ATORVASTATIN (LIPITOR) 80 MG PO BEDTIME I attest that the foregoing medication list in the medical record is true, accurate, and complete to the best of my knowledge. Diagnosis, Assessment Plan Hospital course to date: This is a 63-year-old male with a past medical history of HTN, HLD, CHF and CAD with s/p 7 stents who presented with complaints of chest pain. The pain did not radiate. Labs include troponin of 71, and all other labs unremarkable. Patient was transferred to [facility] from [facility] due to NSTEMI. He denies recent fever, cough, shortness of breath, or edema. 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 Left circumflex large dominant vessel first obtuse marginal is patent has stents that looks fine another stent in the mid circumflex beyond the obtuse marginal that has 80 to 90% focal severe restenosis otherwise circumflex distally has diffuse disease distal disease. RCA small nondominant vessel. CV surgery consulted for evaluation of multi-vessel coronary artery disease. Dr. Ko has seen and examined the patient. Thank you for this kind consultation. Assessment/Plan: 1. Multi-vessel coronary artery disease s/p stents 2. Hypertension 3. Hyperlipidemia Patient not able to answer questions due to sedation effects following [facility] CABG workup initiated CT chest w/o contrast Vein mapping and marking Carotid US Urinalysis MRSA/MSSA Hemoglobin A1C Patient seen and examined by Dr. Ko. All questions answered. 10/17/24 Patient alert, awake, oriented, denies any chest pain Breathing comfortable on room air, encourage incentive spirometer teaching Labs and imaging reviewed Last dose of Plavix on 10/16, check platelet response to Plavix Urinalysis negative Hemoglobin A1c 5.[address] chest and MRSA/MSSA Carotid duplex shows 50 to 69% right internal carotid artery stenosis Vein mapping reviewed, veins not visualized on left knee and calf area Echocardiogram shows EF 35 to 39%, moderate to severe diffuse hypokinesis, grade 1 diastolic dysfunction, aortic valve thickening consistent with sclerosis, mild MR, small to moderate pericardial effusion Transfer to CVN 1 Further recommendations to follow Patient seen and examined by Dr. Ko, discussed plan of care with patient, questions were answered 10/18/24 Patient alert, awake, oriented, denies any chest pain Breathing comfortable on room air, encourage incentive spirometer teaching Labs and imaging reviewed, patient had positive drug screen amphetamines and cannabis, educated patient on drug cessation Last dose of Plavix on 10/16, check platelet response to Plavix-87 Urinalysis negative Hemoglobin A1c 5.[address] chest and MRSA/MSSA- Carotid duplex shows 50 to 69% right internal carotid artery stenosis Vein mapping reviewed, veins not visualized on left knee and calf area Echocardiogram shows EF 35 to 39%, moderate to severe diffuse hypokinesis, grade 1 diastolic dysfunction, aortic valve thickening consistent with sclerosis, mild MR, small to moderate pericardial effusion Plan for surgery in upcoming week once platelet response to Plavix improved Patient seen and examined by Dr. Ko, discussed plan of care with patient, questions were answered. 10/19/24 Patient alert, awake, oriented, denies any chest pain Breathing comfortable on room air, encourage incentive spirometer teaching Labs and imaging reviewed, patient had positive drug screen amphetamines and cannabis, educated patient on drug cessation Last dose of Plavix on 10/16, check platelet response to Plavix-87 - Repeat Platelet response and TEG tomorrow morning Urinalysis negative Hemoglobin A1c 5.3 CT chest completed, showing Cardiomegaly with a 2 cm thick pericardial effusion MRSA/MSSA negative Carotid duplex shows 50 to 69% right internal carotid artery stenosis Vein mapping reviewed, veins not visualized on left knee and calf area Echocardiogram shows EF 35 to 39%, moderate to severe diffuse hypokinesis, grade 1 diastolic dysfunction, aortic valve thickening consistent with sclerosis, mild MR, small to moderate pericardial effusion Plan for surgery later in the week once platelet response to Plavix has improved Patient seen and examined by Dr. Ko, discussed plan of care with patient, questions were answered. 10/20/24 Patient alert, awake, oriented, denies any chest pain Breathing comfortable on room air, encourage incentive spirometer teaching Labs and imaging reviewed, patient had positive drug screen amphetamines and cannabis, educated patient on drug cessation Last dose of Plavix on 10/16, check platelet response to Plavix-87 -Platelet response today is 109, TEG completed ADP % inhibition 20.6, ADP 59.4 Urinalysis negative Hemoglobin A1c 5.3 CT chest completed, showing Cardiomegaly with a 2 cm thick pericardial effusion MRSA/MSSA negative Carotid duplex shows 50 to 69% right internal carotid artery stenosis Vein mapping reviewed, veins not visualized on left knee and calf area Echocardiogram shows EF 35 to 39%, moderate to severe diffuse hypokinesis, grade 1 diastolic dysfunction, aortic valve thickening consistent with sclerosis, mild MR, small to moderate pericardial effusion PFTs to be completed tomorrow Surgery will be scheduled later this week. Patient seen and examined by Dr. Ko, discussed plan of care with patient, questions were answered. 10/21/24 Events occurred yesterday and overnight, where patient had went missing for a couple hours during the evening and then the family was found vaping in the patient's room. Dr. Ko discussed with the patient the expectations and rules that must be followed while in the hospital. The patient understands, and agreed that he would abstain from any drug use or smoking. A drug toxicology screen was completed, positive for Cannabinoids. Patient will benefit from surgical revascularization, Dr. Ko explained to the patient and family the need for coronary artery bypass graft surgery. He explained in detail the operation, risks involved, STS risk score calculator, benefits, alternatives, and complications. Patient acknowledges understanding and is agreeable to proceed, all questions were answered and consent is obtained. Patient is scheduled for coronary artery bypass graft surgery this afternoon. 1. Coronary artery bypass graft surgery x4 (NIEVES to LAD, saphenous vein to diagonal, saphenous vein to first marginal, saphenous vein to second marginal). 2. Amputation of left atrial appendage. 3. Endoscopic vein harvest independent bilateral greater saphenous vein. 4. Posterior pericardiotomy. 10/22/24 POD 1 Patient alert, awake, oriented, reports pain uncontrolled Labs reviewed, hemoglobin 7.6, given 1 unit of PRBC yesterday, replace electrolytes as needed, creatinine 1.1 H H at noon Breathing comfortably on RA, encourage incentive spirometer use and deep breathing, nebs, chest x-ray reviewed Chest tube outputs LP 260cc, MS 270cc overnight, keep in place and continue monitoring, will reassess after ambulation Normal sinus rhythm, epicardial pacing wires on standby, monitoring blood pressure, CVP 7 Advance diet as tolerated, nutritional supplements, bowel regimen, monitoring BS Montiel, Urine output overnight 1020cc, strict I's O's, daily standing scale weights, +2428 24 hr- fluid balance PT/OT, OOB for all meals, encourage ambulation DVT prophylaxis with SCDs, GI prophylaxis with PPI Disposition: patient and family admitted yesterday they are not at one specific place living. Consult case management for possible SNF vs. rehab Continue supportive care ICC following Patient seen and examined by Dr. Ko. Discussed plan of care with patient, nurse and interdisciplinary team. All questions answered. 10/23/24 POD 2 Patient alert, awake, oriented, reports pain uncontrolled, on nitro gtt Labs reviewed, hgb 7.2, replace electrolytes as needed On 8L HFNC, wean as tolerated, encourage incentive spirometer use and deep breathing, nebs, chest x-ray reviewed Normal sinus rhythm, epicardial pacing wires on standby, monitoring blood pressure, increase BB to metoprolol 50mg BID, add amlodipine 5mg daily, CVP 8 Advance diet as tolerated, nutritional supplements, bowel regimen, monitoring BS Montiel, Urine output overnight 525cc, strict I's O's, daily standing scale weights, +479 24 hr- fluid balance, weight trending up PT/OT, OOB for all meals, encourage ambulation DVT prophylaxis with SCDs, GI prophylaxis with PPI Disposition: patient and family admitted they are not at one specific place living. Case management following, SNF vs. rehab Continue supportive care ICC following, DC montiel Patient seen and examined by Dr. Ko. Discussed plan of care with patient, nurse and interdisciplinary team. All questions answered. 10/24/24 POD 2 Patient alert, awake, oriented, reports pain improving. Labs reviewed, HGB 6.1- Moniotr Closely, repeat H7H this afternoon. replace electrolytes as needed On 4L, wean as tolerated, encourage incentive spirometer use and deep breathing, nebs, chest x-ray reviewed Normal sinus rhythm, epicardial pacing wires on standby, monitoring blood pressure, metoprolol 50mg BID, add amlodipine 5mg daily, Advance diet as tolerated, nutritonal supplements, bowel regimen, monitoring BS PT/OT, OOB for all meals, encourage ambulation DVT prophylaxis with SCDs, GI prophylaxis with PPI Disposition: patient and family admitted they are not at one specific place living. Case management following, SNF vs. rehab Continue supportive care ICC following, Patient seen and examined by Dr. Ko. Discussed plan of care with patient, nurse and interdisciplinary team. All questions answered. No signs of hemodynamic instability. repeat H H this afternoon. Continue OOB walking. Consultants: cardiology at 0952 at 4134 RPT #:[id number] END OF REPORT [facility] 2024-10-23 13:00:00 [facility] ([facility] Hospitalist Progress Note REPORT#:[id number] REPORT STATUS: Signed REPORT INITIALIZATION DATE:10/23/24 TIME: 1300 PATIENT: CLEO LONG UNIT #: [id number] ROOM/BED: [place] [id number] : 61 AGE: 63 SEX: M ATTEND: Shyla Zepeda MD ADM AUTHOR: Ann Marie Llanos APRN REPT SERVICE DT/TIME: 10/23/24 1300 * ALL edits or amendments must be made on the electronic/computer document * Subjective Chief complaint: s/p CABG, up in chair, chest tubes out c/o nasal congestion HPI: 63 years old male with PMH of HTN, CHF and CAD with 7 stents complaint of cp . pain did not radiate . he also found elevate troponin . he was transferred to the hospital from [facility] due to NSTEMI . no fever no cough no sob no edema no nausea no vomiting no rosalind pain no dysuria no dizziness no syncope no neurology deficit . Review of Systems Constitutional: Denies: chills, fever. ENT: Reports: nasal congestion. Respiratory: Denies: SOB, wheezing. Cardiovascular: Denies: chest pain, palpitations. GI: Denies: nausea, vomiting. All systems rev neg: except as noted Objective General VS/I O: Vital Signs: Date Time Temp Pulse Resp B/P B/P Pulse O2 O2 Flow FiO2 Mean Ox Delivery Rate 10/23 1121 94 High flow 3 nasal cannula 10/23 0800 37.4 10/23 0800 Nasal 3 cannula 10/23 0741 93 High flow 3 nasal cannula 10/23 0600 131/86 103 10/23 0600 38.5 80 25 163/57 85 97 / 0500 38.3 79 21 165/55 87 100 / 0400 37.2 / 0400 High flow 7 nasal cannula 10/23 0400 129/68 92 / 0400 38.5 79 24 147/50 77 100 / 0350 High flow 10 nasal cannula 10/23 0300 129/61 88 / 0300 38.7 82 26 144/57 79 99 / 0258 82 95 60 / 0258 100 BiPAP 60 / 0230 124/63 86 / 0230 38.6 83 24 144/56 77 98 / 0200 129/69 91 / 0200 38.6 83 26 147/55 78 98 / 0100 149/70 99 / 0100 38.4 86 25 155/63 85 96 / 0030 120/63 85 10/23 0030 38.5 90 29 123/53 72 91 10/23 0000 37.3 10/23 0000 164/79 113 10/23 0000 38.5 84 27 150/59 80 96 10/22 2330 157/81 109 10/22 2330 38.4 82 25 152/60 82 96 10/22 2318 82 95 60 10/22 2318 95 BiPAP 60 10/22 2300 174/84 118 10/22 2300 38.2 82 25 157/62 84 95 10/22 2230 159/75 109 10/22 2230 38.1 82 21 157/60 82 95 10/22 2200 131/68 97 10/22 2200 37.9 84 20 147/60 81 97 10/22 2130 158/73 106 10/22 2130 38.0 86 20 150/63 84 98 10/22 2100 168/79 114 10/22 2100 38.1 84 20 160/63 85 96 10/226 86 92 60 10/22 2030 157/67 100 10/22 2030 38.0 84 19 151/58 79 96 10/22 2000 37.6 10/22 2000 BiPAP 60 10/22 2000 121/67 87 10/22 2000 38.1 85 25 128/55 75 93 10/22 1948 91 Nasal 8 52 cannula 10/22 1930 133/70 94 10/22 1930 37.8 82 20 162/59 83 90 10/22 1900 38.0 82 19 158/57 80 92 10/22 1830 38.2 83 21 163/58 82 87 10/22 1825 38.2 82 20 166/62 88 92 10/22 1700 37.9 74 12 155/63 85 92 10/22 1600 Nasal 2 cannula 10/22 1600 37.6 73 14 140/60 79 94 10/22 1522 92 High flow 2 nasal cannula 10/22 1500 37.4 74 23 143/63 83 94 10/22 1430 37.4 76 21 126/61 79 97 10/22 1400 37.2 69 16 172/64 92 97 24 hour I O ending at 0700: 10/23 0700 10/22 1900 Intake Total 624.00 1020.00 Output Total 445 720 Balance 179.00 300.00 Intake, IV 264.00 80.00 Intake, Oral 360 940 Output, Chest 110 Tube Drainage Output, Urine 445 610 Patient 75.2 kg 73.936 kg Weight Weight Standing scale Measurement Method PATIENT WEIGHT: Weight (lb): 165 Weight (oz): 12.6 Weight (kg): 75.200 Medications: Active Meds + DC'd Last 24 Hrs Ipratropium [place] (ATROVENT) 500 MCG RTQ2H PRN PRN INH Cyanocobalamin (Vitamin B-12 500 mcg tab) 500 MCG DAILY PO Ferrous Sulfate (FERROUS SULFATE) 325 MG DAILY PO Hydralazine HCl (APRESOLINE) 50 MG Q8HR PO (DC) Bisacodyl (DULCOLAX) 10 MG ONCE PRN RECTAL Magnesium Hydroxide (MILK OF MAGNESIA) 30 ML ONCE PRN PO Hydralazine HCl (APRESOLINE) 50 MG Q8H PRN PRN PO Furosemide (LASIX 40 mg/4 mL INJECTION) 40 MG ONCE ONE IV (DC) Amlodipine Besylate (NORVASC) 5 MG DAILY PO Metoprolol Tartrate (LOPRESSOR) 50 MG Q12HR PO Hydralazine HCl (APRESOLINE) 25 MG ONCE ONE PO (DC) Hydralazine HCl (APRESOLINE) 25 MG Q8HR PO (DC) Metoprolol Tartrate (LOPRESSOR) 25 MG Q12HR PO (DC) Metoprolol Tartrate (LOPRESSOR) 12.5 MG ONCE ONE PO (DC) Clopidogrel Bisulfate (Plavix) 75 MG DAILY PO Polyethylene Glycol (MIRALAX) 17 GM DAILY PO Pantoprazole (PROTONIX) 40 MG DAILY@0600 PO Atorvastatin Calcium (LIPITOR) 40 MG 2100 PO Docusate Sodium (COLACE) 100 MG BID PO Metoprolol Tartrate (LOPRESSOR) 12.5 MG Q12HR PO (DC) Sennosides (Senna Lax 8.6 MG TABLET) 17.2 MG BEDTIME PO Aspirin (ASPIRIN) 81 MG DAILY PO Sodium Chloride (SODIUM CHLORIDE 0.9%) 100 ML ASDIR PRN IV Sodium Chloride (SODIUM CHLORIDE 0.9%) 100 ML ASDIR PRN IV Sodium Chloride (SODIUM CHLORIDE 0.9%) 100 ML ASDIR PRN IV Amiodarone HCl (CORDARONE) 200 MG TID PO Ipratropium [place] (ATROVENT) 500 MCG RTQ4H INH Acetaminophen (TYLENOL) 650 MG Q4H PRN PRN PO Acetaminophen (TYLENOL) 650 MG Q4H PRN PRN RECTAL Calcium Chloride (CALCIUM CHLORIDE) 1 GM ASDIR PRN IV Dextrose/Water (DEXTROSE 10% IN WATER) 125 ML ASDIR PRN IV (CKD) Dextrose/Water (DEXTROSE 10% IN WATER) 250 ML ASDIR PRN IV (CKD) Epinephrine (ADRENALIN CHLORIDE) 4 MG ASDIR IV Dextrose/Water (DEXTROSE 5% WATER) 246 ML Glucagon (GLUCAGON) 1 MG ASDIR PRN IM Insulin Human Regular (MYXREDLIN 100 UNITS/NS 100ML) 100 ML ASDIR IV ( CKD) Magnesium Sulfate (MAGNESIUM SULFATE 4GM/SWFI 100ML) 100 ML ASDIR PRN IV Magnesium Sulfate (MAGNESIUM SULFATE 2GM/SWFI 50ML) 50 ML ASDIR PRN IV Magnesium Sulfate/Dextrose (MAGNESIUM SULFATE 1GM/D5W 100ML) 100 ML ASDIR PRN IV Mupirocin (BACTROBAN 2% 22 GM OINTMENT) 1 APPLIC BID NASAL Nitroglycerin/Dextrose (NITROGLYCERIN 50,000MCG/D5W 250ML) 250 ML ASDIR IV Norepinephrine/Dextrose (Norepinephrine 8 MG/D5W 250 mL) 250 ML TITRATE IV Ondansetron HCl (ZOFRAN) 4 MG Q6H PRN PRN IV Oxycodone HCl (ROXICODONE) 5 MG Q4H PRN PRN PO Oxycodone HCl (ROXICODONE) 10 MG Q4H PRN PRN PO Potassium Chloride (KCL 20MEQ/SWFI 100ML) 100 ML ASDIR PRN IV Sodium Bicarbonate (SODIUM BICARBONATE) 50 MEQ ASDIR PRN IV Sodium Chloride (SODIUM CHLORIDE 0.9%) 250 ML Q24H IV Physical Exam General appearance: alert, awake, oriented, no acute distress, no respiratory distress Head/Eyes: atraumatic, normal conjunctiva/sclera, normal eyelids/periorb. Neck: full range of motion, non-tender, normal thyroid Cardiovascular: normal heart sounds, regular rate rhythm Respiratory: aerating well, clear to auscultation Abdomen: non-tender, normal bowel sounds, soft, no distention Extremities: moves all, no calf tenderness, no edema 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: alert, oriented X 3, CNII-XII intact, normal speech, no motor deficits, no sensory deficits Skin: dry, intact Psychiatry: normal affect, normal judgment/insight Results Findings/Data: Laboratory Tests 12/13 12/13 12/13 12/13 1021 0615 0509 0404 Blood Gas Puncture Site R Radial Art Line Art Line Art Line O2 Saturation (90 - 100 %) 94.4 95.8 98.2 99.2 ABG pH (7.35 - 7.45) 7.523 *H 7.474 H 7.465 H 7.460 H ABG pCO2 (35.0 - 45 mmHg) 26.4 *L 34.5 L 36.3 35.6 ABG pO2 (80 - 100.0 mmHg) 62.7 L 75.1 L 100.8 H 133.2 H ABG HCO3 (22.0 - 26.0 MMOL/L) 21.7 L 25.3 26.1 H 25.3 ABG Total CO2 (22 - 29) 22.5 26.3 27.3 26.4 ABG Base Excess (0 - +/ MMOL/L) -1.1 L 1.7 2.4 1.5 ABG Hematocrit (38 - 51 %) 23 L 21 L 21 L 21 L ABG Hemoglobin (12.5 - 16.9 G/DL) 7.7 L 7.0 L 7.1 L 7.0 L Eduarda Test N/A Sodium (134 - 147 mmol/L) 138 140 141 140 Potassium (3.4 - 5.0 mmol/L) 4.0 4.1 4.2 4.2 Chloride (100 - 108 mmol/L) 105 104 105 105 Ionized Calcium (1.12 - 1.32 MMOL/L) 1.16 1.22 1.23 1.22 Lactic Acid (0.9 - 1.7 mmol/l) 2.3 H 1.3 1.3 2.0 H Temperature (F) 99.1 99 99 O2 Delivery Device Cannula Cannula [facility] 10/22 6589 Blood Gas Puncture Site Art Line O2 Saturation (90 - 100 %) 91.7 ABG pH (7.35 - 7.45) 7.434 ABG pCO2 (35.0 - 45 mmHg) 38.5 ABG pO2 (80 - 100.0 mmHg) 64.1 L ABG HCO3 (22.0 - 26.0 MMOL/L) 25.5 ABG Total CO2 (22 - 29) 26.7 ABG Base Excess (0 - +/ MMOL/L) 1.5 ABG Hematocrit (38 - 51 %) 21 L ABG Hemoglobin (12.5 - 16.9 G/DL) 7.1 L Deuarda Test N/A Sodium (134 - 147 mmol/L) 141 Potassium (3.4 - 5.0 mmol/L) 4.0 Chloride (100 - 108 mmol/L) 105 Ionized Calcium (1.12 - 1.32 MMOL/L) 1.22 Lactic Acid (0.9 - 1.7 mmol/l) 1.7 Temperature (F) 100.4 O2 Delivery Device HFFL Laboratory Tests 10/23 10/23 10/23 10/23 10/23 1021 1010 0615 0509 0404 Chemistry POC Creatinine (0.6 - 1.3 mg/dL) 0.9 0.9 1.0 1.0 POC Glucose (70 - 110 MG/DL) 99 POC Glucose (mg/dL) (70 - 110 MG/DL) 124 H 132 H 136 H 145 H 10/23 10/22 8645 1549 Chemistry Sodium (134 - 147 mEq/L) 140 Potassium (3.4 - 5.0 mEq/L) 4.1 Chloride (100 - 108 mEq/L) 106 Carbon Dioxide (21 - 33 mEq/l) 26 Anion Gap (0 - 20) 12 BUN (7 - 25 mg/dL) 26 H Creatinine (0.6 - 1.3 mg/dL) 0.9 POC Creatinine (0.6 - 1.3 mg/dL) 1.0 Glomerular Filtr Rate (80 - 90) 96.6 H Glucose (77 - 141 mg/dL) 133 POC Glucose (mg/dL) (70 - 110 MG/DL) 144 H Calcium (8.0 - 10.5 mg/dL) 8.7 Magnesium (1.6 - 2.6 mg/dL) 2.06 Total Bilirubin (0.0 - 1.0 mg/dL) 0.50 Direct Bilirubin (0.1 - 0.3 MG/DL) 0.20 Indirect Bilirubin (MG/DL) 0.30 AST (8 - 34 IUnit/L) 36 H ALT (10 - 49 IUnit/L) 16 Total Alk Phosphatase (20 - 125 IUnit/L) 61 Total Protein (6.4 - 8.2 g/dL) 6.1 L Albumin (3.4 - 5.0 g/dL) 2.80 L Laboratory Tests 10/23 10/22 0237 1600 Hematology WBC (4.5 - 11.0 x10 3/uL) 11.8 H 10.7 RBC (4.00 - 5.60 x10 6/uL) 2.51 L 2.63 L Hgb (12.5 - 16.9 g/dL) 7.2 L 7.7 L Hct (37.5 - 50.7 %) 22.9 L 23.8 L MCV (81.0 - 99.0 fL) 91.2 90.5 MCH (27.0 - 33.0 pg) 28.7 29.3 MCHC (33.0 - 37.0 g/dL) 31.4 L 32.4 L RDW (11.5 - 14.5 %) 13.7 13.7 Plt Count (150 - 400 x10 3/uL) 320 376 MPV (7.0 - 9.0 fL) 9.0 9.4 H Neut % (Auto) (56.0 - 77.0 %) 81.0 H Lymph % (Auto) (14.0 - 32.0 %) 9.9 L [place] % (Auto) (4.8 - 9.0 %) 7.0 Eos % (Auto) (0.3 - 3.7 %) 1.4 Baso % (Auto) (0.0 - 2.0 %) 0.3 Neut # (Auto) (2.0 - 7.6 x10 3/uL) 9.51 H Lymph # (Auto) (1.0 - 3.8 x10 3/uL) 1.16 [place] # (Auto) (0.1 - 0.8 x10 3/uL) 0.82 H Eos # (Auto) (0.0 - 0.2 x10 3/uL) 0.17 Baso # (Auto) (0.0 - 0.2 x10 3/uL) 0.04 Abs Immat Gran (auto) (0.00 - 0.03 x10 3/uL) 0.05 H Add Manual Diff NO YES Immature Gran % (0.0 - 2.0 %) 0.4 Seg Neutrophils % (37 - 69 %) 68 Band Neutrophils % (0.0 - 10.0 %) 8.0 Lymphocytes % (Manual) (23 - 55 %) 12 L Monocytes % (Manual) (0 - 10 %) 10 Eosinophils % (Manual) (0.0 - 4.0 %) 2 Nucleated RBC % (0 - 0 %) 0.0 Nucleated RBCs # (Man) (0.0 - 0.1 x10 3/uL) 0.00 Platelet Estimate (150 - 400 x10 3/uL) Plt Morphology Comment NORMAL Radiology data: Recent Impressions: RADIOLOGY - XR CHEST 1 V 10/22 1904 Report Impression - Status: SIGNED Entered: 10/22/2024 193 IMPRESSION: Status post left chest tube removal. Tiny 3% left apical pneumothorax. Impression By: Ana Lilia - Lashawn Espinoza M.D. RADIOLOGY - XR CHEST 1 V 10/23 0605 Report Impression - Status: SIGNED Entered: 10/23/2024 09 IMPRESSION: There may be a tiny left apical pneumothorax. Patchy opacity left lung base. This could be due to atelectasis or pneumonia. Impression By: Nohemy - John Olsen M.D. Diagnosis, Assessment Plan Consultants: cardiology Free Text DxA P Notes Free text DxA P notes: 63 YO male with CAD with stent Substance use HTN heart disease with HF Chronic systolic HF EF 35-39% Right carotid stenosis 50-69% 10/15 tele cardiology consult continue ASA/plavix /lipitor CHF -- continue lasix and aldactone -- cozaar HTN- continue coreg 10/16- no cp no sob -- cath today -- post cath -- CABG evaluation 10/17 CABG next week, medically stable to proceed 10/18 CABG next week, Chest CT scan showed ? Pericardal effusion. stable to proceed 10/19 Vitals and labs stable today. No acute complaints. CABG later then week per surgeon. 10/20 labs and vitals remains stable. CABG later this week when surgery schedules. 10/22 S/P CABG 10/21. Continue postop care per CT surgery in ICU. Monitor chest tube OP. Monitor hgb, transfuse if hgb <7. S/P 1 unit PRBC. PT/OT for OOB. DC planning, possible SNF vs IPR. 10/23 Continue post-op care. PT/OT. Chest tubes out. Labs noted, CMP ok. Monitor Hgb and WBC. Rehab eval. at 1350 at 0026 RPT #:[id number] END OF REPORT [facility] 2024-10-23 08:33:00 [facility] ([facility]) Cardiothoracic Surgery Prog REPORT#:[id number] REPORT STATUS: Signed REPORT INITIALIZATION DATE:10/23/24 TIME: 832 PATIENT: CLEO LONG UNIT #: [id number] ROOM/BED: [place] [address] : 62 AGE: 63 SEX: M ATTEND: Shyla Zepeda MD ADM AUTHOR: Margaret Serrano APRN-FAMILY EDUCATOR REPT SERVICE DT/TIME: 10/23/24 0833 * ALL edits or amendments must be made on the electronic/computer document * General Post-op: day 2 Status post: 10/21/2024 1. Coronary artery bypass graft surgery x4 (NIEVES to LAD, saphenous vein to diagonal, saphenous vein to first marginal, saphenous vein to second marginal). 2. Amputation of left atrial appendage. 3. Endoscopic vein harvest independent bilateral greater saphenous vein. 4. Posterior pericardiotomy. Subjective Chief complaint: s/p CABG Review of Systems Constitutional: Reports: fatigue. Denies: chills, fever, generalized weakness. Skin: Denies: abrasion, contusion, ecchymosis. Allergy/Immun: Denies: allergic reaction, hives, rhinorrhea. Eyes: Denies: redness, itching, diplopia. Respiratory: Reports: BAIG (dyspnea on exertion). Denies: hemoptysis, non productive cough, pleuritic pain. Cardiovascular: Denies: chest pain, palpitations. GI: Denies: abdominal pain, nausea, vomiting. Heme: Denies: adenopathy, bleeding, bruising. Endocrine: Denies: cold intolerance, heat intolerance, polyphagia. Neuro: Denies: confusion, dizziness, seizure, syncope. All systems rev neg: except as marked Objective General VS/I O Last Documented: Result Date Time B/P 131/86 10/23 0600 B/P Mean 103 10/23 600 Pulse Ox 97 10/23 600 Temp 101.3 10/23 06 Pulse 80 10/23 0600 Resp 25 10/23 06 O2 Delivery High flow nasal cannula 10/23 400 O2 Flow Rate 7 10/23 400 FiO2 60 10/238 24 hour I O ending at 0700: 10/23 0700 10/22 1900 Intake Total 624.00 1020.00 Output Total 445 720 Balance 179.00 300.00 Intake, IV 264.00 80.00 Intake, Oral 360 940 Output, Chest 110 Tube Drainage Output, Urine 445 610 Patient 75.2 kg 73.936 kg Weight Weight Standing scale Measurement Method PATIENT WEIGHT: Weight (lb): 165 Weight (oz): 12.6 Weight (kg): 75.200 Dietitian Nutrition assessment The data set between the solid lines has been imported from the dietitian's assessment. BMI Calculated: 23.8 Nutrition related diagnosis: Nutrition diagnosis details: Nutrition problem: No nutrition diagnosis Nutrition etiology: Nutrition signs and symptoms: Nutrition prescription: 1. continue current cardiac diet Dietitian name: Rubi Cai RD, AROLDO Assessment completed: 10/22/24 Physical Exam General appearance: alert, awake, oriented Wound/incision: Location: sternum Site condition: dressing clean dry, dressing intact, edges approximated HEENT: anicteric, mucosal membranes moist, pupils reactive to light Neck: full range of motion, non-tender Cardiovascular: normal heart sounds, regular rate rhythm Respiratory: decreased breath sounds, wheezing, symmetric expansion, no distress Abdomen: soft, non-tender Genitourinary: no bladder distention, no flank pain Extremities: dry, moves all Musculoskeletal: full range of motion, painless range of motion 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: alert, oriented X 3 Skin: dry, intact Psychiatry: normal affect, normal mood Current Medications Medications: Active Meds + DC'd Last 24 Hrs Ipratropium [place] (ATROVENT) 500 MCG RTQ2H PRN PRN INH Cyanocobalamin (Vitamin B-12 500 mcg tab) 500 MCG DAILY PO Ferrous Sulfate (FERROUS SULFATE) 325 MG DAILY PO Hydralazine HCl (APRESOLINE) 50 MG Q8HR PO Bisacodyl (DULCOLAX) 10 MG ONCE PRN RECTAL Magnesium Hydroxide (MILK OF MAGNESIA) 30 ML ONCE PRN PO Amlodipine Besylate (NORVASC) 5 MG DAILY PO Metoprolol Tartrate (LOPRESSOR) 50 MG Q12HR PO Hydralazine HCl (APRESOLINE) 25 MG ONCE ONE PO (DC) Hydralazine HCl (APRESOLINE) 25 MG Q8HR PO (DC) Metoprolol Tartrate (LOPRESSOR) 25 MG Q12HR PO (DC) Metoprolol Tartrate (LOPRESSOR) 12.5 MG ONCE ONE PO (DC) Clopidogrel Bisulfate (Plavix) 75 MG DAILY PO Polyethylene Glycol (MIRALAX) 17 GM DAILY PO Pantoprazole (PROTONIX) 40 MG DAILY@0600 PO Acetaminophen (OFIRMEV 10MG/ML) 100 ML Q6H IV (DC) Atorvastatin Calcium (LIPITOR) 40 MG 2100 PO Docusate Sodium (COLACE) 100 MG BID PO Metoprolol Tartrate (LOPRESSOR) 12.5 MG Q12HR PO (DC) Sennosides (Senna Lax 8.6 MG TABLET) 17.2 MG BEDTIME PO Aspirin (ASPIRIN) 81 MG DAILY PO Sodium Chloride (SODIUM CHLORIDE 0.9%) 100 ML ASDIR PRN IV Sodium Chloride (SODIUM CHLORIDE 0.9%) 100 ML ASDIR PRN IV Sodium Chloride (SODIUM CHLORIDE 0.9%) 100 ML ASDIR PRN IV Amiodarone HCl (CORDARONE) 200 MG TID PO Cefazolin Sodium (KEFZOL OR ANCEF) 3 GM ONCE ONE IV (DC) Sodium Chloride (SODIUM CHLORIDE 0.9%) 250 ML Ipratropium [place] (ATROVENT) 500 MCG RTQ4H INH Acetaminophen (TYLENOL) 650 MG Q4H PRN PRN PO Acetaminophen (TYLENOL) 650 MG Q4H PRN PRN RECTAL Albumin Human (ALBUMINAR 25%) 25 GM ASDIR PRN IV (DC) Calcium Chloride (CALCIUM CHLORIDE) 1 GM ASDIR PRN IV Dextrose/Water (DEXTROSE 10% IN WATER) 125 ML ASDIR PRN IV (CKD) Dextrose/Water (DEXTROSE 10% IN WATER) 250 ML ASDIR PRN IV (CKD) Epinephrine (ADRENALIN CHLORIDE) 4 MG ASDIR IV Dextrose/Water (DEXTROSE 5% WATER) 246 ML Glucagon (GLUCAGON) 1 MG ASDIR PRN IM Insulin Human Regular (MYXREDLIN 100 UNITS/NS 100ML) 100 ML ASDIR IV ( CKD) Magnesium Sulfate (MAGNESIUM SULFATE 4GM/SWFI 100ML) 100 ML ASDIR PRN IV Magnesium Sulfate (MAGNESIUM SULFATE 2GM/SWFI 50ML) 50 ML ASDIR PRN IV Magnesium Sulfate/Dextrose (MAGNESIUM SULFATE 1GM/D5W 100ML) 100 ML ASDIR PRN IV Mupirocin (BACTROBAN 2% 22 GM OINTMENT) 1 APPLIC BID NASAL Nitroglycerin/Dextrose (NITROGLYCERIN 50,000MCG/D5W 250ML) 250 ML ASDIR IV Norepinephrine/Dextrose (Norepinephrine 8 MG/D5W 250 mL) 250 ML TITRATE IV Ondansetron HCl (ZOFRAN) 4 MG Q6H PRN PRN IV Oxycodone HCl (ROXICODONE) 5 MG Q4H PRN PRN PO Oxycodone HCl (ROXICODONE) 10 MG Q4H PRN PRN PO Potassium Chloride (KCL 20MEQ/SWFI 100ML) 100 ML ASDIR PRN IV Sodium Bicarbonate (SODIUM BICARBONATE) 50 MEQ ASDIR PRN IV Sodium Chloride (SODIUM CHLORIDE 0.9%) 250 ML Q24H IV Results Findings/Data: Laboratory Tests 10/23 10/23 10/23 10/22 0615 0509 [id number] 2888 Blood Gas Puncture Site Art Line Art Line Art Line Art Line O2 Saturation (90 - 100 %) 95.8 98.2 99.2 91.7 ABG pH (7.35 - 7.45) 7.474 H 7.465 H 7.460 H 7.434 ABG pCO2 (35.0 - 45 mmHg) 34.5 L 36.3 35.6 38.5 ABG pO2 (80 - 100.0 mmHg) 75.1 L 100.8 H 133.2 H 64.1 L ABG HCO3 (22.0 - 26.0 MMOL/L) 25.3 26.1 H 25.3 25.5 ABG Total CO2 (22 - 29) 26.3 27.3 26.4 26.7 ABG Base Excess (0 - +/ MMOL/L) 1.7 2.4 1.5 1.5 ABG Hematocrit (38 - 51 %) 21 L 21 L 21 L 21 L ABG Hemoglobin (12.5 - 16.9 G/DL) 7.0 L 7.1 L 7.0 L 7.1 L Eduarda Test N/A Sodium (134 - 147 mmol/L) 140 141 140 141 Potassium (3.4 - 5.0 mmol/L) 4.1 4.2 4.2 4.0 Chloride (100 - 108 mmol/L) 104 105 105 105 Ionized Calcium (1.12 - 1.32 MMOL/L) 1.22 1.23 1.22 1.22 Lactic Acid (0.9 - 1.7 mmol/l) 1.3 1.3 2.0 H 1.7 Temperature (F) 99.1 99 99 100.4 O2 Delivery Device Cannula HFNC HFNC HFNC Laboratory Tests 10/23 10/23 10/23 10/23 10/22 0615 0509 0404 2250 5772 Chemistry Sodium (134 - 147 mEq/L) 140 Potassium (3.4 - 5.0 mEq/L) 4.1 Chloride (100 - 108 mEq/L) 106 Carbon Dioxide (21 - 33 mEq/l) 26 Anion Gap (0 - 20) 12 BUN (7 - 25 mg/dL) 26 H Creatinine (0.6 - 1.3 mg/dL) 0.9 POC Creatinine (0.6 - 1.3 mg/dL) 0.9 1.0 1.0 1.0 Glomerular Filtr Rate (80 - 90) 96.6 H Glucose (77 - 141 mg/dL) 133 POC Glucose (mg/dL) (70 - 110 MG/DL) 132 H 136 H 145 H 144 H Calcium (8.0 - 10.5 mg/dL) 8.7 Magnesium (1.6 - 2.6 mg/dL) 2.06 Total Bilirubin (0.0 - 1.0 mg/dL) 0.50 Direct Bilirubin (0.1 - 0.3 MG/DL) 0.20 Indirect Bilirubin (MG/DL) 0.30 AST (8 - 34 IUnit/L) 36 H ALT (10 - 49 IUnit/L) 16 Total Alk Phosphatase (20 - 125 IUnit/L) 61 Total Protein (6.4 - 8.2 g/dL) 6.1 L Albumin (3.4 - 5.0 g/dL) 2.80 L 10/22 0841 Chemistry POC Glucose (70 - 110 MG/DL) 87 Laboratory Tests 10/23 10/22 0237 1600 Hematology WBC (4.5 - 11.0 x10 3/uL) 11.8 H 10.7 RBC (4.00 - 5.60 x10 6/uL) 2.51 L 2.63 L Hgb (12.5 - 16.9 g/dL) 7.2 L 7.7 L Hct (37.5 - 50.7 %) 22.9 L 23.8 L MCV (81.0 - 99.0 fL) 91.2 90.5 MCH (27.0 - 33.0 pg) 28.7 29.3 MCHC (33.0 - 37.0 g/dL) 31.4 L 32.4 L RDW (11.5 - 14.5 %) 13.7 13.7 Plt Count (150 - 400 x10 3/uL) 320 376 MPV (7.0 - 9.0 fL) 9.0 9.4 H Neut % (Auto) (56.0 - 77.0 %) 81.0 H Lymph % (Auto) (14.0 - 32.0 %) 9.9 L [place] % (Auto) (4.8 - 9.0 %) 7.0 Eos % (Auto) (0.3 - 3.7 %) 1.4 Baso % (Auto) (0.0 - 2.0 %) 0.3 Neut # (Auto) (2.0 - 7.6 x10 3/uL) 9.51 H Lymph # (Auto) (1.0 - 3.8 x10 3/uL) 1.16 [place] # (Auto) (0.1 - 0.8 x10 3/uL) 0.82 H Eos # (Auto) (0.0 - 0.2 x10 3/uL) 0.17 Baso # (Auto) (0.0 - 0.2 x10 3/uL) 0.04 Abs Immat Gran (auto) (0.00 - 0.03 x10 3/uL) 0.05 H Add Manual Diff NO YES Immature Gran % (0.0 - 2.0 %) 0.4 Seg Neutrophils % (37 - 69 %) 68 Band Neutrophils % (0.0 - 10.0 %) 8.0 Lymphocytes % (Manual) (23 - 55 %) 12 L Monocytes % (Manual) (0 - 10 %) 10 Eosinophils % (Manual) (0.0 - 4.0 %) 2 Nucleated RBC % (0 - 0 %) 0.0 Nucleated RBCs # (Man) (0.0 - 0.1 x10 3/uL) 0.00 Platelet Estimate (150 - 400 x10 3/uL) Plt Morphology Comment NORMAL Radiology data: Recent Impressions: RADIOLOGY - XR CHEST 1 V 10/22 1904 Report Impression - Status: SIGNED Entered: 10/22/20241937 IMPRESSION: Status post left chest tube removal. Tiny 3% left apical pneumothorax. Impression By: Ana Lilia Espinoza M.D. Results: labs reviewed, vital signs stable, ladonna personally rev'd, current med profile rev'd Quality: Trauma Gen Surg Current Medications Current medication review: Current Medications Sig/Ina Start time Last Medication Dose Route Stop Time Status Admin Aspirin 81 MG BEDTIME 10/15 2100 AC PO 01/13 2059 Acetaminophen 650 MG Q6H PRN PRN 10/15 1030 AC PO 01/13 1029 Clopidogrel Bisulfate 75 MG DAILY 10/15 1030 AC PO 01/13 1029 Morphine Sulfate 2 MG Q4H PRN PRN 10/15 1030 AC IV 10/20 1029 Ondansetron HCl 4 MG Q4H PRN PRN 10/15 1030 AC IV 01/13 1029 Albuterol/Ipratropium 3 ML X1ED STA 10/14 2127 DC 10/14 NEB 10/14 Aspirin 324 MG X1ED STA 10/14 2105 DC PO 10/14 2106 Home Medications: FUROSEMIDE (LASIX) 20 MG PO DAILY LOSARTAN 100 MG PO DAILY SPIRONOLACTONE (ALDACTONE) 25 MG PO DAILY ASPIRIN 81 MG PO DAILY CARVEDILOL (carvediloL) 12.5 MG PO BID CLOPIDOGREL (PLAVIX) 75 MG PO DAILY ATORVASTATIN (LIPITOR) 80 MG PO BEDTIME I attest that the foregoing medication list in the medical record is true, accurate, and complete to the best of my knowledge. Diagnosis, Assessment Plan Hospital course to date: This is a 63-year-old male with a past medical history of HTN, HLD, CHF and CAD with s/p 7 stents who presented with complaints of chest pain. The pain did not radiate. Labs include troponin of 71, and all other labs unremarkable. Patient was transferred to [facility] from [facility] due to NSTEMI. He denies recent fever, cough, shortness of breath, or edema. 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 Left circumflex large dominant vessel first obtuse marginal is patent has stents that looks fine another stent in the mid circumflex beyond the obtuse marginal that has 80 to 90% focal severe restenosis otherwise circumflex distally has diffuse disease distal disease. RCA small nondominant vessel. CV surgery consulted for evaluation of multi-vessel coronary artery disease. Dr. Ko has seen and examined the patient. Thank you for this kind consultation. Assessment/Plan: 1. Multi-vessel coronary artery disease s/p stents 2. Hypertension 3. Hyperlipidemia Patient not able to answer questions due to sedation effects following [facility] CABG workup initiated CT chest w/o contrast Vein mapping and marking Carotid US Urinalysis MRSA/MSSA Hemoglobin A1C Patient seen and examined by Dr. Ko. All questions answered. 10/17/24 Patient alert, awake, oriented, denies any chest pain Breathing comfortable on room air, encourage incentive spirometer teaching Labs and imaging reviewed Last dose of Plavix on 10/16, check platelet response to Plavix Urinalysis negative Hemoglobin A1c 5.[address] chest and MRSA/MSSA Carotid duplex shows 50 to 69% right internal carotid artery stenosis Vein mapping reviewed, veins not visualized on left knee and calf area Echocardiogram shows EF 35 to 39%, moderate to severe diffuse hypokinesis, grade 1 diastolic dysfunction, aortic valve thickening consistent with sclerosis, mild MR, small to moderate pericardial effusion Transfer to CVN 1 Further recommendations to follow Patient seen and examined by Dr. Ko, discussed plan of care with patient, questions were answered 10/18/24 Patient alert, awake, oriented, denies any chest pain Breathing comfortable on room air, encourage incentive spirometer teaching Labs and imaging reviewed, patient had positive drug screen amphetamines and cannabis, educated patient on drug cessation Last dose of Plavix on 10/16, check platelet response to Plavix-87 Urinalysis negative Hemoglobin A1c 5.[address] chest and MRSA/MSSA- Carotid duplex shows 50 to 69% right internal carotid artery stenosis Vein mapping reviewed, veins not visualized on left knee and calf area Echocardiogram shows EF 35 to 39%, moderate to severe diffuse hypokinesis, grade 1 diastolic dysfunction, aortic valve thickening consistent with sclerosis, mild MR, small to moderate pericardial effusion Plan for surgery in upcoming week once platelet response to Plavix improved Patient seen and examined by Dr. Ko, discussed plan of care with patient, questions were answered. 10/19/24 Patient alert, awake, oriented, denies any chest pain Breathing comfortable on room air, encourage incentive spirometer teaching Labs and imaging reviewed, patient had positive drug screen amphetamines and cannabis, educated patient on drug cessation Last dose of Plavix on 10/16, check platelet response to Plavix-87 - Repeat Platelet response and TEG tomorrow morning Urinalysis negative Hemoglobin A1c 5.3 CT chest completed, showing Cardiomegaly with a 2 cm thick pericardial effusion MRSA/MSSA negative Carotid duplex shows 50 to 69% right internal carotid artery stenosis Vein mapping reviewed, veins not visualized on left knee and calf area Echocardiogram shows EF 35 to 39%, moderate to severe diffuse hypokinesis, grade 1 diastolic dysfunction, aortic valve thickening consistent with sclerosis, mild MR, small to moderate pericardial effusion Plan for surgery later in the week once platelet response to Plavix has improved Patient seen and examined by Dr. Ko, discussed plan of care with patient, questions were answered. 10/20/24 Patient alert, awake, oriented, denies any chest pain Breathing comfortable on room air, encourage incentive spirometer teaching Labs and imaging reviewed, patient had positive drug screen amphetamines and cannabis, educated patient on drug cessation Last dose of Plavix on 10/16, check platelet response to Plavix-87 -Platelet response today is 109, TEG completed ADP % inhibition 20.6, ADP 59.4 Urinalysis negative Hemoglobin A1c 5.3 CT chest completed, showing Cardiomegaly with a 2 cm thick pericardial effusion MRSA/MSSA negative Carotid duplex shows 50 to 69% right internal carotid artery stenosis Vein mapping reviewed, veins not visualized on left knee and calf area Echocardiogram shows EF 35 to 39%, moderate to severe diffuse hypokinesis, grade 1 diastolic dysfunction, aortic valve thickening consistent with sclerosis, mild MR, small to moderate pericardial effusion PFTs to be completed tomorrow Surgery will be scheduled later this week. Patient seen and examined by Dr. Ko, discussed plan of care with patient, questions were answered. 10/21/24 Events occurred yesterday and overnight, where patient had went missing for a couple hours during the evening and then the family was found vaping in the patient's room. Dr. Ko discussed with the patient the expectations and rules that must be followed while in the hospital. The patient understands, and agreed that he would abstain from any drug use or smoking. A drug toxicology screen was completed, positive for Cannabinoids. Patient will benefit from surgical revascularization, Dr. Ko explained to the patient and family the need for coronary artery bypass graft surgery. He explained in detail the operation, risks involved, STS risk score calculator, benefits, alternatives, and complications. Patient acknowledges understanding and is agreeable to proceed, all questions were answered and consent is obtained. Patient is scheduled for coronary artery bypass graft surgery this afternoon. 1. Coronary artery bypass graft surgery x4 (NIEVES to LAD, saphenous vein to diagonal, saphenous vein to first marginal, saphenous vein to second marginal). 2. Amputation of left atrial appendage. 3. Endoscopic vein harvest independent bilateral greater saphenous vein. 4. Posterior pericardiotomy. 10/22/24 POD 1 Patient alert, awake, oriented, reports pain uncontrolled Labs reviewed, hemoglobin 7.6, given 1 unit of PRBC yesterday, replace electrolytes as needed, creatinine 1.1 H H at noon Breathing comfortably on RA, encourage incentive spirometer use and deep breathing, nebs, chest x-ray reviewed Chest tube outputs LP 260cc, MS 270cc overnight, keep in place and continue monitoring, will reassess after ambulation Normal sinus rhythm, epicardial pacing wires on standby, monitoring blood pressure, CVP 7 Advance diet as tolerated, nutritional supplements, bowel regimen, monitoring BS Montiel, Urine output overnight 1020cc, strict I's O's, daily standing scale weights, +2428 24 hr- fluid balance PT/OT, OOB for all meals, encourage ambulation DVT prophylaxis with SCDs, GI prophylaxis with PPI Disposition: patient and family admitted yesterday they are not at one specific place living. Consult case management for possible SNF vs. rehab Continue supportive care ICC following Patient seen and examined by Dr. Ko. Discussed plan of care with patient, nurse and interdisciplinary team. All questions answered. 10/23/24 POD 2 Patient alert, awake, oriented, reports pain uncontrolled, on nitro gtt Labs reviewed, hgb 7.2, replace electrolytes as needed On 8L HFNC, wean as tolerated, encourage incentive spirometer use and deep breathing, nebs, chest x-ray reviewed Normal sinus rhythm, epicardial pacing wires on standby, monitoring blood pressure, increase BB to metoprolol 50mg BID, add amlodipine 5mg daily, CVP 8 Advance diet as tolerated, nutritional supplements, bowel regimen, monitoring BS Montiel, Urine output overnight 525cc, strict I's O's, daily standing scale weights, +479 24 hr- fluid balance, weight trending up PT/OT, OOB for all meals, encourage ambulation DVT prophylaxis with SCDs, GI prophylaxis with PPI Disposition: patient and family admitted they are not at one specific place living. Case management following, SNF vs. rehab Continue supportive care ICC following, DC montiel Patient seen and examined by Dr. Ko. Discussed plan of care with patient, nurse and interdisciplinary team. All questions answered. Consultants: cardiology Code status: full code Plan discussed with: patient, collaborating MD, nurse, interdisc care team at 0841 at 9250 RPT #:[id number] END OF REPORT [facility] 2024-10-23 08:26:00 [facility] ([facility]) Critical Care Progress Note REPORT#:[id number] REPORT STATUS: Signed REPORT INITIALIZATION DATE:10/23/24 TIME: 825 PATIENT: CLEO LONG UNIT #: [id number] ROOM/BED: [place] [id number] : 62 AGE: 63 SEX: M ATTEND: Shyla Zepeda MD ADM AUTHOR: Vijay Olvera DO REPT SERVICE DT/TIME: 10/23/24 2379 * ALL edits or amendments must be made on the electronic/computer document * Subjective Chief complaint: CAD HPI: Patient is a 63-year-old male with past medical history of hypertension, hyperlipidemia, CHF and coronary artery disease with 7 previous stents. Patient presented with chest pain. His left heart cath on the sixth that showed multivessel coronary artery disease. He underwent CABG x 4 today with CV surgery. He is not the CVICU for postoperative care. His postoperative echo had an EF of 50% on epi of 3. He was also on vasopressin 0.02 and on small dose of norepinephrine. He received 1 L of crystalloid intraoperatively and 250 of Cell Saver. He also received 2 units of platelets and 2 FFP. Currently sinus rhythm in the 60s and quickly titrating down on drips. Sedation is off. His paralytic was reversed. He was started on spontaneous breathing trial. Postop labs, EKG, chest x-ray pending. He is noted to have increased output out of his mediastinal drain. He put out 130 of sanguinous output in 1 hour. Tag sent and will give another FFP and platelet. 10/22: Patient seen and evaluated bedside. No acute events overnight. Is on room air. Started on nitro for high blood pressure this morning. Complaining of pain at chest tube site 10/23: Patient seen and evaluated bedside. No acute events overnight. Remains on nitro infusion for hypertension. Is on 3 L nasal cannula. Pain is better controlled. Will increase beta-fletcher today and start amlodipine. Objective General VS/I O Last Documented: Result Date Time B/P 131/86 10/23 0600 B/P Mean 103 10/23 0600 Pulse Ox 97 10/23 06 Temp 101.3 10/23 0600 Pulse 80 10/23 0600 Resp 25 10/23 0600 O2 Delivery High flow nasal cannula 10/23 0400 O2 Flow Rate 7 10/23 0400 FiO2 60 10/23 0258 24 hour I O ending at 0700: 10/23 0700 10/22 1900 Intake Total 624.00 1020.00 Output Total 445 720 Balance 179.00 300.00 Intake, IV 264.00 80.00 Intake, Oral 360 940 Output, Chest 110 Tube Drainage Output, Urine 445 610 Patient 75.2 kg 73.936 kg Weight Weight Standing scale Measurement Method PATIENT WEIGHT: Weight (lb): 165 Weight (oz): 12.6 Weight (kg): 75.200 Free Text Obj Notes Free Text Obj Notes: GEN: Appears in no acute distress, interactive and conversational HEENT: Atraumatic, normocephalic, moist mucous membranes NECK: Supple, good range of motion, no tenderness, no JVD LUNGS: Symmetrical air entry, no acute respiratory distress, no accessory muscle use CV: S1, S2 regular rate and rhythm, warm and well perfused GI: Abdomen is soft, not tender or distended EXT/Musc: No edema or cyanosis. Pedal pulses present. Compartments soft Skin: Surgical site clean, dry and intact. Warm to touch NEURO: Awake, alert and oriented x3. No facial droop or focal deficit Diagnosis, Assessment Plan Free text A P: Patient is a 63-year-old male with multivessel coronary artery disease that is postop day 0 status post CABG x 4 Coronary disease NSTEMI CABG x 4 Bilateral EVH ALAA PP History of hypertension History of hyperlipidemia Neuro:multimodal pain control Respiratory: Pulmonary hygiene, incentive spirometry,ABG and CXR reviewed Cardiovascular: Continue nitro, increase beta-fletcher ,SBP goal <140, add amlodipine , ekg, PO amiodarone and beta fletcher when appropriate. Renal: strict I/Os, monitor Cr and electrolytes, resuscitate as needed, remove Montiel, Lasix today GI: PPI, advance diet, bowel regimen ID: trend WBC, cont periop ABx per protocol Hem: monitor Hgb and CTs output, transfuse as needed, correct coagulopathy. ASA/ plavix when able. Endo: Sliding scale insulin Misc: PTOT consult, DVT and GI ppx with SCD and PPI Consultants: cardiology Quality: Gen Med Crit Care Current Medications Current medication review: Current Medications Sig/Nia Start time Last Medication Dose Route Stop Time Status Admin Aspirin 81 MG BEDTIME 10/15 2100 AC PO 01/13 2059 Acetaminophen 650 MG Q6H PRN PRN 10/15 1030 AC PO 01/13 1029 Clopidogrel Bisulfate 75 MG DAILY 10/15 1030 AC PO 01/13 1029 Morphine Sulfate 2 MG Q4H PRN PRN 10/15 1030 AC IV 10/20 1029 Ondansetron HCl 4 MG Q4H PRN PRN 10/15 1030 AC IV 01/13 1029 Albuterol/Ipratropium 3 ML X1ED STA 10/14 2127 DC 10/14 NEB 10/14 Aspirin 324 MG X1ED STA 10/14 2105 DC PO 10/14 2106 Home Medications: FUROSEMIDE (LASIX) 20 MG PO DAILY LOSARTAN 100 MG PO DAILY SPIRONOLACTONE (ALDACTONE) 25 MG PO DAILY ASPIRIN 81 MG PO DAILY CARVEDILOL (carvediloL) 12.5 MG PO BID CLOPIDOGREL (PLAVIX) 75 MG PO DAILY ATORVASTATIN (LIPITOR) 80 MG PO BEDTIME I attest that the foregoing medication list in the medical record is true, accurate, and complete to the best of my knowledge. at 0830 RPT #:[id number] END OF REPORT [facility] 2024-10-23 06:55:00 [facility] Cardiology Progress Note REPORT#:[id number] REPORT STATUS: Signed REPORT INITIALIZATION DATE:10/23/24 TIME: 654 PATIENT: CLEO LONG UNIT #: [id number] ROOM/BED: [place] [id number] : 61 AGE: 63 SEX: M ATTEND: Shyla Zepeda MD ADM AUTHOR: Alec Norris MD REPT SERVICE DT/TIME: 10/23/24 0655 * ALL edits or amendments must be made on the electronic/computer document * Objective General VS/I O: 24 hour I O ending at 0700: 10/23 0700 10/22 1900 Intake Total 624.00 1020.00 Output Total 445 720 Balance 179.00 300.00 Intake, IV 264.00 80.00 Intake, Oral 360 940 Output, Chest 110 Tube Drainage Output, Urine 445 610 Patient 75.2 kg 73.936 kg Weight Weight Standing scale Measurement Method Vital Signs: Date Time Temp Pulse Resp B/P B/P Pulse O2 O2 Flow FiO2 Mean Ox Delivery Rate 10/23 0600 131/86 103 10/23 0600 38.5 80 25 163/57 85 97 10/23 0500 38.3 79 21 165/55 87 100 10/23 0400 37.2 10/23 0400 High flow 7 nasal cannula 10/23 0400 129/68 92 10/23 0400 38.5 79 24 147/50 77 100 10/23 0350 High flow 10 nasal cannula 10/23 0300 129/61 88 10/23 0300 38.7 82 26 144/57 79 99 10/23 0258 82 95 60 10/23 0258 100 BiPAP 60 10/23 0230 124/63 86 10/23 0230 38.6 83 24 144/56 77 98 10/23 0200 129/69 91 10/23 0200 38.6 83 26 147/55 78 98 10/23 0100 149/70 99 10/23 0100 38.4 86 25 155/63 85 96 10/23 0030 120/63 85 10/23 0030 38.5 90 29 123/53 72 91 10/23 0000 37.3 10/23 0000 164/79 113 10/23 0000 38.5 84 27 150/59 80 96 10/22 2330 157/81 109 10/22 2330 38.4 82 25 152/60 82 96 10/22 2318 82 95 60 10/22 2318 95 BiPAP 60 10/22 2300 174/84 118 10/22 2300 38.2 82 25 157/62 84 95 10/22 2230 159/75 109 10/22 2230 38.1 82 21 157/60 82 95 10/22 2200 131/68 97 10/22 2200 37.9 84 20 147/60 81 97 10/22 2130 158/73 106 10/22 2130 38.0 86 20 150/63 84 98 10/22 2100 168/79 114 10/22 2100 38.1 84 20 160/63 85 96 10/22 2046 86 92 60 10/22 2030 157/67 100 10/22 2030 38.0 84 19 151/58 79 96 10/22 2000 37.6 10/22 2000 BiPAP 60 10/22 2000 121/67 87 10/22 2000 38.1 85 25 128/55 75 93 10/22 1948 91 Nasal 8 52 cannula 10/22 1930 133/70 94 10/22 1930 37.8 82 20 162/59 83 90 10/22 1900 38.0 82 19 158/57 80 92 10/22 1830 38.2 83 21 163/58 82 87 10/22 1825 38.2 82 20 166/62 88 92 10/22 1700 37.9 74 12 155/63 85 92 10/22 1600 Nasal 2 cannula 10/22 1600 37.6 73 14 140/60 79 94 10/22 1522 92 High flow 2 nasal cannula 10/22 1500 37.4 74 23 143/63 83 94 10/22 1430 37.4 76 21 126/61 79 97 10/22 1400 37.2 69 16 172/64 92 97 10/22 1300 37.1 69 16 140/57 81 96 10/22 1200 Nasal 2 cannula 10/22 1200 37.2 68 26 117/54 73 92 10/22 1124 97 High flow 2 nasal cannula 10/22 1100 37.1 72 16 156/59 83 95 10/22 0800 Nasal 2 cannula 10/22 0718 96 Room air 21 PATIENT WEIGHT: Weight (lb): 165 Weight (oz): 12.6 Weight (kg): 75.200 Medications: Active Meds + DC'd Last 24 Hrs Ipratropium [place] (ATROVENT) 500 MCG RTQ2H PRN PRN INH Cyanocobalamin (Vitamin B-12 500 mcg tab) 500 MCG DAILY PO Ferrous Sulfate (FERROUS SULFATE) 325 MG DAILY PO Hydralazine HCl (APRESOLINE) 50 MG Q8HR PO Bisacodyl (DULCOLAX) 10 MG ONCE PRN RECTAL Magnesium Hydroxide (MILK OF MAGNESIA) 30 ML ONCE PRN PO Hydralazine HCl (APRESOLINE) 25 MG ONCE ONE PO (DC) Hydralazine HCl (APRESOLINE) 25 MG Q8HR PO (DC) Metoprolol Tartrate (LOPRESSOR) 25 MG Q12HR PO Metoprolol Tartrate (LOPRESSOR) 12.5 MG ONCE ONE PO (DC) Clopidogrel Bisulfate (Plavix) 75 MG DAILY PO Polyethylene Glycol (MIRALAX) 17 GM DAILY PO Pantoprazole (PROTONIX) 40 MG DAILY@0600 PO Acetaminophen (OFIRMEV 10MG/ML) 100 ML Q6H IV (DC) Atorvastatin Calcium (LIPITOR) 40 MG 2100 PO Docusate Sodium (COLACE) 100 MG BID PO Metoprolol Tartrate (LOPRESSOR) 12.5 MG Q12HR PO (DC) Sennosides (Senna Lax 8.6 MG TABLET) 17.2 MG BEDTIME PO Aspirin (ASPIRIN) 81 MG DAILY PO Sodium Chloride (SODIUM CHLORIDE 0.9%) 100 ML ASDIR PRN IV Sodium Chloride (SODIUM CHLORIDE 0.9%) 100 ML ASDIR PRN IV Sodium Chloride (SODIUM CHLORIDE 0.9%) 100 ML ASDIR PRN IV Amiodarone HCl (CORDARONE) 200 MG TID PO Cefazolin Sodium (KEFZOL OR ANCEF) 3 GM ONCE ONE IV (DC) Sodium Chloride (SODIUM CHLORIDE 0.9%) 250 ML Ipratropium [place] (ATROVENT) 500 MCG RTQ4H INH Acetaminophen (TYLENOL) 650 MG Q4H PRN PRN PO Acetaminophen (TYLENOL) 650 MG Q4H PRN PRN RECTAL Albumin Human (ALBUMINAR 25%) 25 GM ASDIR PRN IV (DC) Calcium Chloride (CALCIUM CHLORIDE) 1 GM ASDIR PRN IV Dextrose/Water (DEXTROSE 10% IN WATER) 125 ML ASDIR PRN IV (CKD) Dextrose/Water (DEXTROSE 10% IN WATER) 250 ML ASDIR PRN IV (CKD) Epinephrine (ADRENALIN CHLORIDE) 4 MG ASDIR IV Dextrose/Water (DEXTROSE 5% WATER) 246 ML Glucagon (GLUCAGON) 1 MG ASDIR PRN IM Insulin Human Regular (MYXREDLIN 100 UNITS/NS 100ML) 100 ML ASDIR IV ( CKD) Magnesium Sulfate (MAGNESIUM SULFATE 4GM/SWFI 100ML) 100 ML ASDIR PRN IV Magnesium Sulfate (MAGNESIUM SULFATE 2GM/SWFI 50ML) 50 ML ASDIR PRN IV Magnesium Sulfate/Dextrose (MAGNESIUM SULFATE 1GM/D5W 100ML) 100 ML ASDIR PRN IV Mupirocin (BACTROBAN 2% 22 GM OINTMENT) 1 APPLIC BID NASAL Nitroglycerin/Dextrose (NITROGLYCERIN 50,000MCG/D5W 250ML) 250 ML ASDIR IV Norepinephrine/Dextrose (Norepinephrine 8 MG/D5W 250 mL) 250 ML TITRATE IV Ondansetron HCl (ZOFRAN) 4 MG Q6H PRN PRN IV Oxycodone HCl (ROXICODONE) 5 MG Q4H PRN PRN PO Oxycodone HCl (ROXICODONE) 10 MG Q4H PRN PRN PO Potassium Chloride (KCL 20MEQ/SWFI 100ML) 100 ML ASDIR PRN IV Sodium Bicarbonate (SODIUM BICARBONATE) 50 MEQ ASDIR PRN IV Sodium Chloride (SODIUM CHLORIDE 0.9%) 250 ML Q24H IV Physical Exam General appearance: alert, awake Cardiovascular: CV assessment: regular rate and rhythm, BP pulses = bilaterally, normal heart sounds, pedal pulses present, no ectopy, no heave, no murmur Respiratory: clear to auscultation Results Findings/Data: Laboratory Tests 10/23 10/23 10/23 10/22 0615 5972 2563 6936 Blood Gas Puncture Site Art Line Art Line Art Line Art Line O2 Saturation (90 - 100 %) 95.8 98.2 99.2 91.7 ABG pH (7.35 - 7.45) 7.474 H 7.465 H 7.460 H 7.434 ABG pCO2 (35.0 - 45 mmHg) 34.5 L 36.3 35.6 38.5 ABG pO2 (80 - 100.0 mmHg) 75.1 L 100.8 H 133.2 H 64.1 L ABG HCO3 (22.0 - 26.0 MMOL/L) 25.3 26.1 H 25.3 25.5 ABG Total CO2 (22 - 29) 26.3 27.3 26.4 26.7 ABG Base Excess (0 - +/ MMOL/L) 1.7 2.4 1.5 1.5 ABG Hematocrit (38 - 51 %) 21 L 21 L 21 L 21 L ABG Hemoglobin (12.5 - 16.9 G/DL) 7.0 L 7.1 L 7.0 L 7.1 L Eduarda Test N/A Sodium (134 - 147 mmol/L) 140 141 140 141 Potassium (3.4 - 5.0 mmol/L) 4.1 4.2 4.2 4.0 Chloride (100 - 108 mmol/L) 104 105 105 105 Ionized Calcium (1.12 - 1.32 MMOL/L) 1.22 1.23 1.22 1.22 Lactic Acid (0.9 - 1.7 mmol/l) 1.3 1.3 2.0 H 1.7 Temperature (F) 99.1 99 99 100.4 O2 Delivery Device Cannula HFNC HFNC HFNC Laboratory Tests 10/2315 0509 7274 6525 6798 Chemistry Sodium (134 - 147 mEq/L) 140 Potassium (3.4 - 5.0 mEq/L) 4.1 Chloride (100 - 108 mEq/L) 106 Carbon Dioxide (21 - 33 mEq/l) 26 Anion Gap (0 - 20) 12 BUN (7 - 25 mg/dL) 26 H Creatinine (0.6 - 1.3 mg/dL) 0.9 POC Creatinine (0.6 - 1.3 mg/dL) 0.9 1.0 1.0 1.0 Glomerular Filtr Rate (80 - 90) 96.6 H Glucose (77 - 141 mg/dL) 133 POC Glucose (mg/dL) (70 - 110 MG/DL) 132 H 136 H 145 H 144 H Calcium (8.0 - 10.5 mg/dL) 8.7 Magnesium (1.6 - 2.6 mg/dL) 2.06 Total Bilirubin (0.0 - 1.0 mg/dL) 0.50 Direct Bilirubin (0.1 - 0.3 MG/DL) 0.20 Indirect Bilirubin (MG/DL) 0.30 AST (8 - 34 IUnit/L) 36 H ALT (10 - 49 IUnit/L) 16 Total Alk Phosphatase (20 - 125 IUnit/L) 61 Total Protein (6.4 - 8.2 g/dL) 6.1 L Albumin (3.4 - 5.0 g/dL) 2.80 L 10/22 0841 Chemistry POC Glucose (70 - 110 MG/DL) 87 Laboratory Tests 10/23 10/22 0237 1600 Hematology WBC (4.5 - 11.0 x10 3/uL) 11.8 H 10.7 RBC (4.00 - 5.60 x10 6/uL) 2.51 L 2.63 L Hgb (12.5 - 16.9 g/dL) 7.2 L 7.7 L Hct (37.5 - 50.7 %) 22.9 L 23.8 L MCV (81.0 - 99.0 fL) 91.2 90.5 MCH (27.0 - 33.0 pg) 28.7 29.3 MCHC (33.0 - 37.0 g/dL) 31.4 L 32.4 L RDW (11.5 - 14.5 %) 13.7 13.7 Plt Count (150 - 400 x10 3/uL) 320 376 MPV (7.0 - 9.0 fL) 9.0 9.4 H Neut % (Auto) (56.0 - 77.0 %) 81.0 H Lymph % (Auto) (14.0 - 32.0 %) 9.9 L [place] % (Auto) (4.8 - 9.0 %) 7.0 Eos % (Auto) (0.3 - 3.7 %) 1.4 Baso % (Auto) (0.0 - 2.0 %) 0.3 Neut # (Auto) (2.0 - 7.6 x10 3/uL) 9.51 H Lymph # (Auto) (1.0 - 3.8 x10 3/uL) 1.16 [place] # (Auto) (0.1 - 0.8 x10 3/uL) 0.82 H Eos # (Auto) (0.0 - 0.2 x10 3/uL) 0.17 Baso # (Auto) (0.0 - 0.2 x10 3/uL) 0.04 Abs Immat Gran (auto) (0.00 - 0.03 x10 3/uL) 0.05 H Add Manual Diff NO YES Immature Gran % (0.0 - 2.0 %) 0.4 Seg Neutrophils % (37 - 69 %) 68 Band Neutrophils % (0.0 - 10.0 %) 8.0 Lymphocytes % (Manual) (23 - 55 %) 12 L Monocytes % (Manual) (0 - 10 %) 10 Eosinophils % (Manual) (0.0 - 4.0 %) 2 Nucleated RBC % (0 - 0 %) 0.0 Nucleated RBCs # (Man) (0.0 - 0.1 x10 3/uL) 0.00 Platelet Estimate (150 - 400 x10 3/uL) Plt Morphology Comment NORMAL Laboratory Tests 10/23 0237 Chemistry Magnesium (1.6 - 2.6 mg/dL) 2.06 Diagnosis, Assessment Plan Free Text DxA P Notes Free Text DxA P Notes: 1. CAD: Two-vessel, plan for CABG sometime next week. 2. Hyperlipidemia: Continue statin 3. Hypertension: Continue carvedilol s/p cabg today extubated chest tubes in place stable hemodynamics stable discussed with pt and family at 1857 RPT #:[id number] END OF REPORT [facility] 2024-10-23 03:59:00 [id number] [place] [address] PATIENT NAME: CLEO LONG ADMIT DATE: 10/14/24 ACCOUNT NO: [id number] ROOM NO: [facility] AGE: 63 REPORT TYPE: eELECTROCARDIOGRAM REPORT SEX: M ADMITTING PHYSICIAN:Shyla Zepeda MD ATTENDING PHYSICIAN:Shyla Zepeda MD Order: [id number] Test Reason : Cardiac Surgery Post Op Test Date/Time Stamp: SatOct 23 2024 03:59:02 Blood Pressure : / mmHG Vent. Rate : 080 BPM Atrial Rate : 080 BPM P-R Int : 154 ms QRS Dur : 124 ms QT Int : 418 ms P-R-T Axes : 069 007 119 degrees QTc Int : 482 ms Normal sinus rhythm Possible Inferior infarct (cited on or before 22-OCT-2024) T wave abnormality, consider lateral ischemia Abnormal ECG When compared with ECG of 22-OCT-2024 03:53, No significant change was found Confirmed by Paola NORRIS MOHAN ([id number]) on 10/27/2024 5:57:01 AM Referred By: Self Referred Confirmed by:ALEC NORRIS M.D. at 0557 PATIENT NAME: CLEO LONG [facility] 2024-10-22 15:47:00 [facility] ([facility]) Hospitalist Progress Note REPORT#:[id number] REPORT STATUS: Signed REPORT INITIALIZATION DATE:10/22/24 TIME: 1547 PATIENT: CLEO LONG UNIT #: [id number] ROOM/BED: [place] [id number] : [birth year] AGE: 63 SEX: M ATTEND: Shyla Zepeda MD ADM AUTHOR: Ann Marie Llanos APRN REPT SERVICE DT/TIME: 10/22/24 7426 * ALL edits or amendments must be made on the electronic/computer document * Subjective Chief complaint: s/p CABG, up in chair, chest tubes in place HPI: 63 years old male with PMH of HTN, CHF and CAD with 7 stents complaint of cp . pain did not radiate . he also found elevate troponin . he was transferred to the hospital from [facility] due to NSTEMI . no fever no cough no sob no edema no nausea no vomiting no rosalind pain no dysuria no dizziness no syncope no neurology deficit . Review of Systems All systems rev neg: except as noted Objective General VS/I O: Vital Signs: Date Time Temp Pulse Resp B/P B/P Pulse O2 O2 Flow FiO2 Mean Ox Delivery Rate 10/22 1124 97 High flow 2 nasal cannula 10/22 0800 Nasal 2 cannula 10/22 0718 96 Room air 21 10/22 0600 132/69 94 10/22 0600 37.3 74 14 135/54 74 97 10/22 0530 124/72 91 10/22 0530 37.6 78 15 127/57 74 94 10/22 0500 127/63 88 10/22 0500 37.7 76 13 122/54 71 95 10/22 0445 Nasal 3 cannula 10/22 0430 133/73 97 10/22 0430 37.7 78 18 148/62 85 98 10/22 0400 37.3 10/22 0400 High flow 6 nasal cannula 10/22 0400 119/64 85 10/22 0400 37.5 76 25 118/49 69 99 10/22 0330 140/70 98 10/22 0330 37.8 71 17 138/54 78 100 10/22 0300 128/68 92 10/22 0300 37.8 72 17 145/56 81 100 10/22 0256 72 100 40 10/22 0256 100 BiPAP 40 10/22 0230 123/67 88 10/22 0230 37.7 74 21 134/57 80 99 10/22 0212 114/78 92 10/22 0212 37.9 79 17 129/63 81 99 10/22 0200 137/70 97 10/22 0200 38.0 72 16 159/63 87 99 10/22 0100 38.1 72 16 148/74 98 100 10/22 0037 BiPAP 40 10/22 0000 36.7 10/22 0000 BiPAP 60 10/22 0000 38.3 73 17 117/59 78 100 10/21 2351 BiPAP 60 10/21 2339 75 100 60 10/21 2339 100 BiPAP 60 10/21 2300 38.7 79 14 133/68 89 95 10/21 2245 High flow 12 nasal cannula 10/21 2200 37.9 83 18 154/78 103 92 10/21 2100 38.4 80 17 154/72 99 98 10/21 2007 98 High flow 10 nasal cannula 10/21 2000 36.9 10/21 2000 High flow 10 nasal cannula 10/21 2000 37.7 79 26 129/73 91 98 10/21 1900 36.6 75 21 121/66 84 10/21 1730 40 10/21 1639 73 18 98 10/21 1639 69 100 40 24 hour I O ending at 0700: 10/22 0700 10/21 1900 Intake Total 2086.00 3191.70 Output Total 1485 1365 Balance 601.00 1826.70 Intake, Fresh 327 Frozen Plasma Intake, IV 1256.00 2376.70 Intake, Oral 480 0 Intake, 350 Packed Cells Intake, 488 Platelet Output, Chest 540 410 Tube Drainage Output, Urine 945 955 Patient 74.1 kg Weight Weight Standing scale Measurement Method PATIENT WEIGHT: Weight (lb): 163 Weight (oz): 5.8 Weight (kg): 73.936 Medications: Active Meds + DC'd Last 24 Hrs Ipratropium [place] (ATROVENT) 500 MCG RTQ2H PRN PRN INH Cyanocobalamin (Vitamin B-12 500 mcg tab) 500 MCG DAILY PO Ferrous Sulfate (FERROUS SULFATE) 325 MG DAILY PO Bisacodyl (DULCOLAX) 10 MG ONCE PRN RECTAL Magnesium Hydroxide (MILK OF MAGNESIA) 30 ML ONCE PRN PO Metoprolol Tartrate (LOPRESSOR) 12.5 MG ONCE ONE PO (DC) Clopidogrel Bisulfate (Plavix) 75 MG DAILY PO Polyethylene Glycol (MIRALAX) 17 GM DAILY PO Pantoprazole (PROTONIX) 40 MG DAILY@0600 PO Acetaminophen (OFIRMEV 10MG/ML) 100 ML Q6H IV (DC) Atorvastatin Calcium (LIPITOR) 40 MG 2100 PO Docusate Sodium (COLACE) 100 MG BID PO Metoprolol Tartrate (LOPRESSOR) 12.5 MG Q12HR PO Sennosides (Senna Lax 8.6 MG TABLET) 17.2 MG BEDTIME PO Aspirin (ASPIRIN) 81 MG DAILY PO Sodium Chloride (SODIUM CHLORIDE 0.9%) 100 ML ASDIR PRN IV Sodium Chloride (SODIUM CHLORIDE 0.9%) 100 ML ASDIR PRN IV Sodium Chloride (SODIUM CHLORIDE 0.9%) 100 ML ASDIR PRN IV Amiodarone HCl (CORDARONE) 200 MG TID PO Cefazolin Sodium (KEFZOL OR ANCEF) 3 GM ONCE ONE IV (DC) Sodium Chloride (SODIUM CHLORIDE 0.9%) 250 ML Ipratropium [place] (ATROVENT) 500 MCG RTQ4H INH Acetaminophen (TYLENOL) 650 MG Q4H PRN PRN PO Acetaminophen (TYLENOL) 650 MG Q4H PRN PRN RECTAL Albumin Human (ALBUMINAR 25%) 25 GM ASDIR PRN IV (DC) Calcium Chloride (CALCIUM CHLORIDE) 1 GM ASDIR PRN IV Dextrose/Water (DEXTROSE 10% IN WATER) 125 ML ASDIR PRN IV (CKD) Dextrose/Water (DEXTROSE 10% IN WATER) 250 ML ASDIR PRN IV (CKD) Epinephrine (ADRENALIN CHLORIDE) 4 MG ASDIR IV Dextrose/Water (DEXTROSE 5% WATER) 246 ML Glucagon (GLUCAGON) 1 MG ASDIR PRN IM Insulin Human Regular (MYXREDLIN 100 UNITS/NS 100ML) 100 ML ASDIR IV ( CKD) Magnesium Sulfate (MAGNESIUM SULFATE 4GM/SWFI 100ML) 100 ML ASDIR PRN IV Magnesium Sulfate (MAGNESIUM SULFATE 2GM/SWFI 50ML) 50 ML ASDIR PRN IV Magnesium Sulfate/Dextrose (MAGNESIUM SULFATE 1GM/D5W 100ML) 100 ML ASDIR PRN IV Mupirocin (BACTROBAN 2% 22 GM OINTMENT) 1 APPLIC BID NASAL Nitroglycerin/Dextrose (NITROGLYCERIN 50,000MCG/D5W 250ML) 250 ML ASDIR IV Norepinephrine/Dextrose (Norepinephrine 8 MG/D5W 250 mL) 250 ML TITRATE IV Ondansetron HCl (ZOFRAN) 4 MG Q6H PRN PRN IV Oxycodone HCl (ROXICODONE) 5 MG Q4H PRN PRN PO Oxycodone HCl (ROXICODONE) 10 MG Q4H PRN PRN PO Potassium Chloride (KCL 20MEQ/SWFI 100ML) 100 ML ASDIR PRN IV Sodium Bicarbonate (SODIUM BICARBONATE) 50 MEQ ASDIR PRN IV Sodium Chloride (SODIUM CHLORIDE 0.9%) 250 ML Q24H IV Physical Exam General appearance: alert, awake, oriented, no acute distress, no respiratory distress Head/Eyes: atraumatic, normal conjunctiva/sclera, normal eyelids/periorb. Neck: full range of motion, non-tender, normal thyroid Cardiovascular: normal heart sounds, regular rate rhythm Respiratory: aerating well, clear to auscultation Abdomen: non-tender, normal bowel sounds, soft, no distention Extremities: moves all, no calf tenderness, no edema 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: alert, oriented X 3, CNII-XII intact, normal speech, no motor deficits, no sensory deficits Skin: dry, intact Psychiatry: normal affect, normal judgment/insight Results Findings/Data: Laboratory Tests 10/22 10/22 10/22 10/22 0620 0449 0340 0026 Blood Gas Puncture Site Art Line Art Line Art Line Art Line O2 Saturation (90 - 100 %) 93.8 93.7 97.8 99.7 ABG pH (7.35 - 7.45) 7.393 7.393 7.405 7.424 ABG pCO2 (35.0 - 45 mmHg) 40.8 40.9 44.5 44.0 ABG pO2 (80 - 100.0 mmHg) 70.4 L 70.4 L 101.3 H 203.4 *H ABG PO2/FiO2 Ratio (mm/Hg) 253.25 339.00 ABG HCO3 (22.0 - 26.0 MMOL/L) 24.8 24.9 27.9 H 28.8 *H ABG Total CO2 (22 - 29) 26.1 26.1 29.2 H 30.2 H ABG Base Excess (0 - +/ MMOL/L) -0.1 L 0.0 3.1 4.4 H ABG Hematocrit (38 - 51 %) 22 L 23 L 21 L 20 L ABG Hemoglobin (12.5 - 16.9 G/DL) 7.4 L 7.9 L 7.1 L 6.9 L Sodium (134 - 147 mmol/L) 143 144 146 147 Potassium (3.4 - 5.0 mmol/L) 4.2 4.5 4.3 4.0 Chloride (100 - 108 mmol/L) 108 110 H 109 H 109 H Ionized Calcium (1.12 - 1.32 MMOL/L) 1.28 1.28 1.34 H 1.38 H Lactic Acid (0.9 - 1.7 mmol/l) 1.3 2.3 H 1.1 1.1 Temperature (F) 99 99 100 98 O2 Delivery Device Cannula Cannula BiPAP BiPAP FiO2 (%) 40 60 PEEP (cmH2O) 6 6 Pressure Support (cmH2O) 12 10/21 2242 1673 9503 Blood Gas Puncture Site Art Line Art Line Art Line O2 Saturation (90 - 100 %) 91.6 95.0 99.4 ABG pH (7.35 - 7.45) 7.461 H 7.422 7.384 ABG pCO2 (35.0 - 45 mmHg) 37.6 43.5 47.8 H ABG pO2 (80 - 100.0 mmHg) 58.9 L 74.8 L 160.3 H ABG PO2/FiO2 Ratio (mm/Hg) 400.75 ABG HCO3 (22.0 - 26.0 MMOL/L) 26.8 H 28.3 *H 28.5 *H ABG Total CO2 (22 - 29) 28.0 29.7 H 30.0 H ABG Base Excess (0 - +/ MMOL/L) 3.0 3.9 3.5 ABG Hematocrit (38 - 51 %) 23 L 20 L 18 L ABG Hemoglobin (12.5 - 16.9 G/DL) 7.9 L 6.9 L 6.0 L Eduarda Test N/A N/A Sodium (134 - 147 mmol/L) 145 146 147 Potassium (3.4 - 5.0 mmol/L) 3.8 3.7 3.6 Chloride (100 - 108 mmol/L) 111 H 109 H 109 H Ionized Calcium (1.12 - 1.32 MMOL/L) 1.29 1.43 H 1.44 H Lactic Acid (0.9 - 1.7 mmol/l) 1.6 1.5 1.6 Temperature (F) 98 100.9 97.9 O2 Delivery Device Cannula HFNC Adult Vent FiO2 (%) 40 Tidal Volume (ml) 500 PEEP (cmH2O) 5 Pressure Support (cmH2O) 10 Laboratory Tests 10/22 10/22 10/22 10/22 10/22 0841 0620 0449 0340 0253 Chemistry Sodium (134 - 147 mEq/L) 144 Potassium (3.4 - 5.0 mEq/L) 4.4 Chloride (100 - 108 mEq/L) 111 H Carbon Dioxide (21 - 33 mEq/l) 26 Anion Gap (0 - 20) 11 BUN (7 - 25 mg/dL) 22 Creatinine (0.6 - 1.3 mg/dL) 1.1 POC Creatinine (0.6 - 1.3 mg/dL) 1.1 1.1 1.2 Glomerular Filtr Rate (80 - 90) 75.9 L Glucose (77 - 141 mg/dL) 122 POC Glucose (70 - 110 MG/DL) 87 POC Glucose (mg/dL) (70 - 110 MG/DL) 160 H 145 H 122 H Calcium (8.0 - 10.5 mg/dL) 8.8 Magnesium (1.6 - 2.6 mg/dL) 2.12 Total Bilirubin (0.0 - 1.0 mg/dL) 0.70 Direct Bilirubin (0.1 - 0.3 MG/DL) 0.30 Indirect Bilirubin (MG/DL) 0.40 AST (8 - 34 IUnit/L) 59 H ALT (10 - 49 IUnit/L) 21 Total Alk Phosphatase (20 - 125 IUnit/L) 59 Total Protein (6.4 - 8.2 g/dL) 5.8 L Albumin (3.4 - 5.0 g/dL) 2.90 L 10/22 10/21 10/21 10/21 0026 2242 2057 1717 Chemistry POC Creatinine (0.6 - 1.3 mg/dL) 1.2 1.2 1.2 1.2 POC Glucose (mg/dL) (70 - 110 MG/DL) 127 H 139 H 125 H 114 H Laboratory Tests 10/22 0253 Hematology WBC (4.5 - 11.0 x10 3/uL) 9.2 RBC (4.00 - 5.60 x10 6/uL) 2.63 L Hgb (12.5 - 16.9 g/dL) 7.6 L Hct (37.5 - 50.7 %) 24.0 L MCV (81.0 - 99.0 fL) 91.3 MCH (27.0 - 33.0 pg) 28.9 MCHC (33.0 - 37.0 g/dL) 31.7 L RDW (11.5 - 14.5 %) 13.3 Plt Count (150 - 400 x10 3/uL) 344 MPV (7.0 - 9.0 fL) 9.1 H Neut % (Auto) (56.0 - 77.0 %) 76.2 Lymph % (Auto) (14.0 - 32.0 %) 11.1 L [place] % (Auto) (4.8 - 9.0 %) 9.4 H Eos % (Auto) (0.3 - 3.7 %) 2.8 Baso % (Auto) (0.0 - 2.0 %) 0.3 Neut # (Auto) (2.0 - 7.6 x10 3/uL) 6.98 Lymph # (Auto) (1.0 - 3.8 x10 3/uL) 1.02 [place] # (Auto) (0.1 - 0.8 x10 3/uL) 0.86 H Eos # (Auto) (0.0 - 0.2 x10 3/uL) 0.26 H Baso # (Auto) (0.0 - 0.2 x10 3/uL) 0.03 Abs Immat Gran (auto) (0.00 - 0.03 x10 3/uL) 0.02 Immature Gran % (0.0 - 2.0 %) 0.2 Nucleated RBC % (0 - 0 %) 0.0 Nucleated RBCs # (Man) (0.0 - 0.1 x10 3/uL) 0.00 Radiology data: Recent Impressions: RADIOLOGY - XR CHEST 1 V 10/22 6525 Report Impression - Status: SIGNED Entered: 10/22/2024 7422 IMPRESSION: There are patchy opacities in the lung bases bilaterally. This could be due to atelectasis or pneumonia. Impression By: Nohemy Olsen M.D. Diagnosis, Assessment Plan Consultants: cardiology Free Text DxA P Notes Free text DxA P notes: 63 YO male with CAD with stent Substance use HTN heart disease with HF Chronic systolic HF EF 35-39% Right carotid stenosis 50-69% 10/15 tele cardiology consult continue ASA/plavix /lipitor CHF -- continue lasix and aldactone -- cozaar HTN- continue coreg 10/16- no cp no sob -- cath today -- post cath -- CABG evaluation 10/17 CABG next week, medically stable to proceed 10/18 CABG next week, Chest CT scan showed ? Pericardal effusion. stable to proceed 10/19 Vitals and labs stable today. No acute complaints. CABG later then week per surgeon. 10/20 labs and vitals remains stable. CABG later this week when surgery schedules. 10/22 S/P CABG 10/21. Continue postop care per CT surgery in ICU. Monitor chest tube OP. Monitor hgb, transfuse if hgb <7. S/P 1 unit PRBC. PT/OT for OOB. DC planning, possible SNF vs IPR. at 1636 at 1752 RPT #:[id number] END OF REPORT [facility] 2024-10-22 11:01:00 [facility] ([facility]) Critical Care Progress Note REPORT#:[id number] REPORT STATUS: Signed REPORT INITIALIZATION DATE:10/22/24 TIME: 110 PATIENT: CLEO LONG UNIT #: [id number] ROOM/BED: [place] [address] : [birth year] AGE: 63 SEX: M ATTEND: Shyla Zepeda MD ADM AUTHOR: Vijay Olvera DO REPT SERVICE DT/TIME: 10/22/24 1101 * ALL edits or amendments must be made on the electronic/computer document * Subjective Chief complaint: CAD HPI: Patient is a 63-year-old male with past medical history of hypertension, hyperlipidemia, CHF and coronary artery disease with 7 previous stents. Patient presented with chest pain. His left heart cath on the sixth that showed multivessel coronary artery disease. He underwent CABG x 4 today with CV surgery. He is not the CVICU for postoperative care. His postoperative echo had an EF of 50% on epi of 3. He was also on vasopressin 0.02 and on small dose of norepinephrine. He received 1 L of crystalloid intraoperatively and 250 of Cell Saver. He also received 2 units of platelets and 2 FFP. Currently sinus rhythm in the 60s and quickly titrating down on drips. Sedation is off. His paralytic was reversed. He was started on spontaneous breathing trial. Postop labs, EKG, chest x-ray pending. He is noted to have increased output out of his mediastinal drain. He put out 130 of sanguinous output in 1 hour. Tag sent and will give another FFP and platelet. 10/22: Patient seen and evaluated bedside. No acute events overnight. Is on room air. Started on nitro for high blood pressure this morning. Complaining of pain at chest tube site Objective General VS/I O Last Documented: Result Date Time Pulse Ox 96 10/22 0718 FiO2 21 10/22 0718 O2 Delivery Room air 10/22 0718 B/P 132/69 10/22 0600 B/P Mean 94 10/22 0600 Temp 99.1 10/22 0600 Pulse 74 10/22 0600 Resp 14 10/22 0600 O2 Flow Rate 3 10/22 0445 24 hour I O ending at 0700: 10/22 0700 10/21 1900 Intake Total 2086.00 3191.70 Output Total 1485 1365 Balance 601.00 1826.70 Intake, Fresh 327 Frozen Plasma Intake, IV 1256.00 2376.70 Intake, Oral 480 0 Intake, 350 Packed Cells Intake, 488 Platelet Output, Chest 540 410 Tube Drainage Output, Urine 945 955 Patient 74.1 kg Weight Weight Standing scale Measurement Method PATIENT WEIGHT: Weight (lb): 163 Weight (oz): 5.8 Weight (kg): 74.100 Free Text Obj Notes Free Text Obj Notes: GEN: Appears in no acute distress, interactive and conversational HEENT: Atraumatic, normocephalic, moist mucous membranes NECK: Supple, good range of motion, no tenderness, no JVD LUNGS: Symmetrical air entry, no acute respiratory distress, no accessory muscle use CV: S1, S2 regular rate and rhythm, warm and well perfused GI: Abdomen is soft, not tender or distended EXT/Musc: No edema or cyanosis. Pedal pulses present. Compartments soft Skin: Surgical site clean, dry and intact. Warm to touch NEURO: Awake, alert and oriented x3. No facial droop or focal deficit Diagnosis, Assessment Plan Free text A P: Patient is a 63-year-old male with multivessel coronary artery disease that is postop day 0 status post CABG x 4 Coronary disease NSTEMI CABG x 4 Bilateral EVH ALAA PP History of hypertension History of hyperlipidemia Neuro:multimodal pain control Respiratory: Pulmonary hygiene, incentive spirometry, monitor chest tube output ABG and CXR reviewed Cardiovascular: Continue nitro, increase beta-fletcher ,SBP goal <140, CTs to suction, monitor output, ekg, PO amiodarone and beta fletcher when appropriate. Renal: strict I/Os, monitor Cr and electrolytes, resuscitate as needed GI: PPI, advance diet, bowel regimen ID: trend WBC, cont periop ABx per protocol Hem: monitor Hgb and CTs output, transfuse as needed, correct coagulopathy. ASA/ plavix when able. Endo: Sliding scale insulin Misc: PTOT consult, DVT and GI ppx with SCD and PPI Total critical care time 34 minutes spent treating the patient excluding any procedures performed Consultants: cardiology Quality: Gen Med Crit Care Current Medications Current medication review: Current Medications Sig/Nia Start time Last Medication Dose Route Stop Time Status Admin Aspirin 81 MG BEDTIME 10/15 2100 AC PO 01/13 2059 Acetaminophen 650 MG Q6H PRN PRN 10/15 1030 AC PO 01/13 1029 Clopidogrel Bisulfate 75 MG DAILY 10/15 1030 AC PO 01/13 1029 Morphine Sulfate 2 MG Q4H PRN PRN 10/15 1030 AC IV 10/20 1029 Ondansetron HCl 4 MG Q4H PRN PRN 10/15 1030 AC IV 01/13 1029 Albuterol/Ipratropium 3 ML X1ED STA 10/14 2127 DC 10/14 NEB 10/14 Aspirin 324 MG X1ED STA 10/14 2105 DC PO 10/14 2106 Home Medications: FUROSEMIDE (LASIX) 20 MG PO DAILY LOSARTAN 100 MG PO DAILY SPIRONOLACTONE (ALDACTONE) 25 MG PO DAILY ASPIRIN 81 MG PO DAILY CARVEDILOL (carvediloL) 12.5 MG PO BID CLOPIDOGREL (PLAVIX) 75 MG PO DAILY ATORVASTATIN (LIPITOR) 80 MG PO BEDTIME I attest that the foregoing medication list in the medical record is true, accurate, and complete to the best of my knowledge. at 1102 RPT #:[id number] END OF REPORT [facility] 2024-10-22 10:44:00 [facility] ([facility]) Pain Management Progress Note REPORT#:[id number] REPORT STATUS: Signed REPORT INITIALIZATION DATE:10/22/24 TIME: 1044 PATIENT: CLEO LONG UNIT #: [id number] ROOM/BED: [place] [address] : 62 AGE: 63 SEX: M ATTEND: Shyla Zepeda MD ADM AUTHOR: Eri Foster APRN REPT SERVICE DT/TIME: 10/22/24 0920 * ALL edits or amendments must be made on the electronic/computer document * Objective General VS/I O: POD # 1 Chief Complaint: Incisional sternal pain s/p CABG Pectointercostal fascia block Patient seen and examined Moving legs Current pain scale 10/10 No side effects noted. Assessment and plan: Pt OOB in bedside chair. Chest tubes and montiel remain. Tolerating PO. Anticipating PT today. Pt rating pain 10/10, RN at bedside to administer meds. Further pain to be managed by surgeon. DC anesthesia services. Vital Signs Date Temp Pulse Resp B/P B/P Mean Pulse Ox FiO2 10/21-10/22 36.6-38.7 69-83 13-26 114-159/49-78 69-103 92-100 21-60 Last Documented: Result Date Time Pulse Ox 96 10/22 0718 FiO2 21 10/22 0718 O2 Delivery Room air 10/22 0718 B/P 132/69 10/22 0600 B/P Mean 94 / 0600 Temp 37.3 / 0600 Pulse 74 / 0600 Resp 14 10/22 0600 O2 Flow Rate 3 10/22 0445 24 hour I O ending at 0700: 10/22 0700 10/21 1900 Intake Total 2086.00 3191.70 Output Total 1485 1365 Balance 601.00 1826.70 Intake, Fresh 327 Frozen Plasma Intake, IV 1256.00 2376.70 Intake, Oral 480 0 Intake, 350 Packed Cells Intake, 488 Platelet Output, Chest 540 410 Tube Drainage Output, Urine 945 955 Patient 74.1 kg Weight Weight Standing scale Measurement Method PATIENT WEIGHT: Weight (lb): 163 Weight (oz): 5.8 Weight (kg): 74.100 at 1045 RPT #:[id number] END OF REPORT [facility] 2024-10-22 08:16:00 [facility] ([facility]) Cardiothoracic Surgery Prog REPORT#:[id number] REPORT STATUS: Signed REPORT INITIALIZATION DATE:10/22/24 TIME: 815 PATIENT: CLEO LONG UNIT #: [id number] ROOM/BED: [place] [id number] : 62 AGE: 63 SEX: M ATTEND: Shyla Zepeda MD ADM AUTHOR: Margaret Serrano APRN-FAMILY EDUCATOR REPT SERVICE DT/TIME: 10/22/24 0816 * ALL edits or amendments must be made on the electronic/computer document * General Post-op: day 1 Subjective Chief complaint: CAD CABG eval Review of Systems Constitutional: Denies: chills, fever, generalized weakness. Skin: Denies: abrasion, contusion, ecchymosis. Allergy/Immun: Denies: allergic reaction, hives, rhinorrhea. Eyes: Denies: redness, itching, diplopia. Respiratory: Denies: BAIG (dyspnea on exertion), non productive cough, pleuritic pain. Cardiovascular: Denies: chest pain, palpitations. GI: Denies: abdominal pain, nausea, vomiting. Heme: Denies: adenopathy, bleeding, bruising. Endocrine: Denies: cold intolerance, heat intolerance, polyphagia. Neuro: Denies: confusion, dizziness, seizure, syncope. All systems rev neg: except as marked Objective General VS/I O Last Documented: Result Date Time B/P 132/69 10/22 0600 B/P Mean 94 10/22 06 Pulse Ox 97 10/22 0600 Temp 99.1 10/22 06 Pulse 74 10/22 0600 Resp 14 10/22 0600 O2 Delivery Nasal cannula 10/22 0445 O2 Flow Rate 3 10/22 0445 FiO2 40 10/22 0256 24 hour I O ending at 0700: 10/22 0700 10/21 1900 Intake Total 2086.00 3191.70 Output Total 1485 1365 Balance 601.00 1826.70 Intake, Fresh 327 Frozen Plasma Intake, IV 1256.00 2376.70 Intake, Oral 480 0 Intake, 350 Packed Cells Intake, 488 Platelet Output, Chest 540 410 Tube Drainage Output, Urine 945 955 Patient 74.1 kg Weight Weight Standing scale Measurement Method PATIENT WEIGHT: Weight (lb): 163 Weight (oz): 5.8 Weight (kg): 74.100 Dietitian Nutrition assessment The data set between the solid lines has been imported from the dietitian's assessment. BMI Calculated: 23.4 Nutrition related diagnosis: Nutrition diagnosis details: Nutrition problem: Nutrition etiology: Nutrition signs and symptoms: Nutrition prescription: Dietitian name: Assessment completed: Physical Exam General appearance: alert, awake, oriented Wound/incision: Location: sternum Site condition: dressing clean dry, dressing intact, edges approximated HEENT: anicteric, mucosal membranes moist, pupils reactive to light Neck: full range of motion, non-tender Cardiovascular: normal heart sounds, regular rate rhythm Respiratory: decreased breath sounds, wheezing, symmetric expansion, no distress Abdomen: soft, non-tender Genitourinary: no bladder distention, no flank pain Extremities: dry, moves all Musculoskeletal: full range of motion, painless range of motion 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: alert, oriented X 3 Skin: dry, intact Psychiatry: normal affect, normal mood Current Medications Medications: Active Meds + DC'd Last 24 Hrs Ipratropium [place] (ATROVENT) 500 MCG RTQ2H PRN PRN INH Cyanocobalamin (Vitamin B-12 500 mcg tab) 500 MCG DAILY PO Ferrous Sulfate (FERROUS SULFATE) 325 MG DAILY PO Bisacodyl (DULCOLAX) 10 MG ONCE PRN RECTAL Magnesium Hydroxide (MILK OF MAGNESIA) 30 ML ONCE PRN PO Clopidogrel Bisulfate (Plavix) 75 MG DAILY PO Polyethylene Glycol (MIRALAX) 17 GM DAILY PO Pantoprazole (PROTONIX) 40 MG DAILY@0600 PO Cefazolin Sodium (ceFAZolin 2 GM Inj) 2 GM PREOP ONCALL IV (DC) Sodium Chloride (SODIUM CHLORIDE) 20 ML Metoprolol Tartrate (LOPRESSOR) 6.25 MG ONCE ONE PO (DC) Vancomycin HCl (VANCOMYCIN HCL) 1,000 MG PREOP ONCALL IV (DC) Sodium Chloride (SODIUM CHLORIDE 0.9%) 250 ML Verapamil HCl (ISOPTIN) 16.6 MG .Q24H ONE IV (DC) Heparin Sodium (Porcine) (HEPARIN SODIUM) 1,660 UNIT Sodium Bicarbonate (SODIUM BICARBONATE) 0.7 ML Nitroglycerin/Dextrose (NITROGLYCERIN 50MG/D5W 250ML) 8.3 MG Lactated Ringer's (LACTATED RINGERS) 949.5 ML Acetaminophen (OFIRMEV 10MG/ML) 100 ML Q6H IV Atorvastatin Calcium (LIPITOR) 40 MG 2100 PO Docusate Sodium (COLACE) 100 MG BID PO Metoprolol Tartrate (LOPRESSOR) 12.5 MG Q12HR PO Sennosides (Senna Lax 8.6 MG TABLET) 17.2 MG BEDTIME PO Aspirin (ASPIRIN) 81 MG DAILY PO Sodium Chloride (SODIUM CHLORIDE 0.9%) 100 ML ASDIR PRN IV Sodium Chloride (SODIUM CHLORIDE 0.9%) 100 ML ASDIR PRN IV Sodium Chloride (SODIUM CHLORIDE 0.9%) 100 ML ASDIR PRN IV Amiodarone HCl (CORDARONE) 200 MG TID PO Fentanyl Citrate (SUBLIMAZE) 0 .STK-MED ONE .ROUTE (DC) Cefazolin Sodium (KEFZOL OR ANCEF) 3 GM ONCE ONE IV Sodium Chloride (SODIUM CHLORIDE 0.9%) 250 ML Vancomycin HCl (VANCOMYCIN HCL) 0 .STK-MED ONE .ROUTE (DC) Ipratropium [place] (ATROVENT) 500 MCG RTQ4H INH Acetaminophen (TYLENOL) 650 MG Q4H PRN PRN PO Acetaminophen (TYLENOL) 650 MG Q4H PRN PRN RECTAL Albumin Human (ALBUMINAR 25%) 25 GM ASDIR PRN IV Calcium Chloride (CALCIUM CHLORIDE) 1 GM ASDIR PRN IV Dextrose/Water (DEXTROSE 10% IN WATER) 125 ML ASDIR PRN IV (CKD) Dextrose/Water (DEXTROSE 10% IN WATER) 250 ML ASDIR PRN IV (CKD) Epinephrine (ADRENALIN CHLORIDE) 4 MG ASDIR IV Dextrose/Water (DEXTROSE 5% WATER) 246 ML Glucagon (GLUCAGON) 1 MG ASDIR PRN IM Insulin Human Regular (MYXREDLIN 100 UNITS/NS 100ML) 100 ML ASDIR IV ( CKD) Magnesium Sulfate (MAGNESIUM SULFATE 4GM/SWFI 100ML) 100 ML ASDIR PRN IV Magnesium Sulfate (MAGNESIUM SULFATE 2GM/SWFI 50ML) 50 ML ASDIR PRN IV Magnesium Sulfate/Dextrose (MAGNESIUM SULFATE 1GM/D5W 100ML) 100 ML ASDIR PRN IV Mupirocin (BACTROBAN 2% 22 GM OINTMENT) 1 APPLIC BID NASAL Nitroglycerin/Dextrose (NITROGLYCERIN 50,000MCG/D5W 250ML) 250 ML ASDIR IV Norepinephrine/Dextrose (Norepinephrine 8 MG/D5W 250 mL) 250 ML TITRATE IV Ondansetron HCl (ZOFRAN) 4 MG Q6H PRN PRN IV Oxycodone HCl (ROXICODONE) 5 MG Q4H PRN PRN PO Oxycodone HCl (ROXICODONE) 10 MG Q4H PRN PRN PO Potassium Chloride (KCL 20MEQ/SWFI 100ML) 100 ML ASDIR PRN IV Sodium Bicarbonate (SODIUM BICARBONATE) 50 MEQ ASDIR PRN IV Sodium Chloride (SODIUM CHLORIDE 0.9%) 250 ML Q24H IV Cefazolin Sodium (ceFAZolin 2 GM Inj) 2 GM PREOP ONCALL IV (DC) Sodium Chloride (SODIUM CHLORIDE) 20 ML Metoprolol Tartrate (LOPRESSOR) 6.25 MG ONCE ONE PO (DC) Vancomycin HCl (VANCOMYCIN HCL) 1,000 MG PREOP ONCALL IV (DC) Sodium Chloride (SODIUM CHLORIDE 0.9%) 250 ML Verapamil HCl (ISOPTIN) 16.6 MG .Q24H ONE IV (DC) Heparin Sodium (Porcine) (HEPARIN SODIUM) 1,660 UNIT Sodium Bicarbonate (SODIUM BICARBONATE) 0.7 ML Nitroglycerin/Dextrose (NITROGLYCERIN 50MG/D5W 250ML) 8.3 MG Lactated Ringer's (LACTATED RINGERS) 949.5 ML Vasopressin (VASOSTRICT) 0 .STK-MED ONE .ROUTE (DC) Influenza Virus Vacc Triv Types A B (Fluzone Trivalent 9956-7159 Syringe) 45 MCG ASDIR IM (DC) Papaverine HCl (PAPAVERINE HCL) 0 .STK-MED ONE IV (DC) Cefazolin Sodium (KEFZOL OR ANCEF) 0 .STK-MED ONE .ROUTE (DC) Sodium Chloride (SODIUM CHLORIDE 0.9%) 250 ML .STK-MED ONE IV (DC) Vancomycin HCl (VANCOMYCIN HCL) 0 .STK-MED ONE .ROUTE (DC) Acetaminophen (TYLENOL EXTRA STRENGTH) 1,000 MG PREOP ONCALL PO (DC) Gabapentin (NEURONTIN) 200 MG PREOP ONCALL PO (DC) Sodium Chloride (SODIUM CHLORIDE 0.9%) 100 ML ASDIR PRN IV (DC) Sodium Chloride (SODIUM CHLORIDE 0.9%) 100 ML ASDIR PRN IV (DC) Sodium Chloride (SODIUM CHLORIDE 0.9%) 100 ML ASDIR PRN IV (DC) Hydralazine HCl (APRESOLINE) 10 MG Q6H PRN PRN IV (DC) Albuterol/Ipratropium (DUONEB) 3 ML RTQ4H PRN PRN NEB (DC) Melatonin (Melatonin) 6 MG BEDTIME PO (DC) Aspirin (ASPIRIN) 325 MG DAILY PO (DC) Nicotine (NICODERM) 14 MG DAILY TRANSDERM (DC) Atorvastatin Calcium (LIPITOR) 80 MG BEDTIME PO (DC) Carvedilol (COREG) 12.5 MG BID PO (DC) Furosemide (LASIX) 20 MG DAILY PO (DC) Spironolactone (ALDACTONE) 25 MG DAILY PO (DC) Acetaminophen (TYLENOL) 650 MG Q6H PRN PRN PO (DC) Ondansetron HCl (ZOFRAN) 4 MG Q4H PRN PRN IV (DC) Results Findings/Data: Laboratory Tests 10/22 10/22 10/22 10/22 0620 0449 0340 0026 Blood Gas Puncture Site Art Line Art Line Art Line Art Line O2 Saturation (90 - 100 %) 93.8 93.7 97.8 99.7 ABG pH (7.35 - 7.45) 7.393 7.393 7.405 7.424 ABG pCO2 (35.0 - 45 mmHg) 40.8 40.9 44.5 44.0 ABG pO2 (80 - 100.0 mmHg) 70.4 L 70.4 L 101.3 H 203.4 *H ABG PO2/FiO2 Ratio (mm/Hg) 253.25 339.00 ABG HCO3 (22.0 - 26.0 MMOL/L) 24.8 24.9 27.9 H 28.8 *H ABG Total CO2 (22 - 29) 26.1 26.1 29.2 H 30.2 H ABG Base Excess (0 - +/ MMOL/L) -0.1 L 0.0 3.1 4.4 H ABG Hematocrit (38 - 51 %) 22 L 23 L 21 L 20 L ABG Hemoglobin (12.5 - 16.9 G/DL) 7.4 L 7.9 L 7.1 L 6.9 L Sodium (134 - 147 mmol/L) 143 144 146 147 Potassium (3.4 - 5.0 mmol/L) 4.2 4.5 4.3 4.0 Chloride (100 - 108 mmol/L) 108 110 H 109 H 109 H Ionized Calcium (1.12 - 1.32 MMOL/L) 1.28 1.28 1.34 H 1.38 H Lactic Acid (0.9 - 1.7 mmol/l) 1.3 2.3 H 1.1 1.1 Temperature (F) 99 99 100 98 O2 Delivery Device Cannula Cannula BiPAP BiPAP FiO2 (%) 40 60 PEEP (cmH2O) 6 6 Pressure Support (cmH2O) 12 12 10/21 10/21 10/21 10/21 2242 2051 1718 9501 Blood Gas Puncture Site Art Line Art Line Art Line Art Line O2 Saturation (90 - 100 %) 91.6 95.0 99.4 94.4 ABG pH (7.35 - 7.45) 7.461 H 7.422 7.384 7.348 L ABG pCO2 (35.0 - 45 mmHg) 37.6 43.5 47.8 H 64.2 *H ABG pO2 (80 - 100.0 mmHg) 58.9 L 74.8 L 160.3 H 79.5 L ABG PO2/FiO2 Ratio (mm/Hg) 400.75 198.75 ABG HCO3 (22.0 - 26.0 MMOL/L) 26.8 H 28.3 *H 28.5 *H 35.3 *H ABG Total CO2 (22 - 29) 28.0 29.7 H 30.0 H 37.3 H ABG Base Excess (0 - +/ MMOL/L) 3.0 3.9 3.5 9.7 H ABG Hematocrit (38 - 51 %) 23 L 20 L 18 L 18 L ABG Hemoglobin (12.5 - 16.9 G/DL) 7.9 L 6.9 L 6.0 L 6.3 L Eduarda Test N/A N/A N/A Sodium (134 - 147 mmol/L) 145 146 147 142 Potassium (3.4 - 5.0 mmol/L) 3.8 3.7 3.6 4.4 Chloride (100 - 108 mmol/L) 111 H 109 H 109 H 109 H Ionized Calcium (1.12 - 1.32 1.29 1.43 H 1.44 H 1.47 H MMOL/L) Lactic Acid (0.9 - 1.7 mmol/l) 1.6 1.5 1.6 2.7 H Temperature (F) 98 100.9 97.9 97.5 O2 Delivery Device Cannula HFNC Adult Vent Adult Vent Vent Mode CPAP/PS FiO2 (%) 40 40 Tidal Volume (ml) 500 PEEP (cmH2O) 5 5 Pressure Support (cmH2O) 10 10/21 1429 1355 1335 1308 Blood Gas Puncture Site Art Line O2 Saturation (90 - 100 %) 98.7 100.0 99.9 100.0 ABG pH (7.35 - 7.45) 7.367 7.337 L 7.302 L 7.445 ABG pCO2 (35.0 - 45 mmHg) 50.6 *H 43.3 39.2 36.3 ABG pO2 (80 - 100.0 mmHg) 127.8 H 392.1 *H 354.2 *H 487.9 *H ABG PO2/FiO2 Ratio (mm/Hg) 255.60 ABG HCO3 (22.0 - 26.0 MMOL/L) 29.1 *H 23.2 19.4 L 24.9 ABG Total CO2 (22 - 29) 30.6 H 24.5 20.6 L 26.0 ABG Base Excess (0 - +/ MMOL/L) 3.8 -2.5 L -6.4 L 0.8 ABG Hematocrit (38 - 51 %) 20 L 20 L 17 L 18 L ABG Hemoglobin (12.5 - 16.9 G/DL) 6.9 L 6.7 L 5.9 L 6.3 L Eduarda Test N/A Sodium (134 - 147 mmol/L) 143 141 138 137 Potassium (3.4 - 5.0 mmol/L) 4.5 4.9 5.3 H 6.4 *H Chloride (100 - 108 mmol/L) 106 108 110 H 101 Ionized Calcium (1.12 - 1.32 MMOL/L) 1.44 H 1.29 1.63 *H 1.17 Lactic Acid (0.9 - 1.7 mmol/l) 2.0 H 2.3 H 2.3 H Temperature (F) 97.7 O2 Delivery Device Adult Vent Vent Mode AC Vent Rate (/MIN) 20 FiO2 (%) 50 Tidal Volume (ml) 500 PEEP (cmH2O) 5 10/21 10/21 10/21 10/21 1243 1216 1112 1029 Blood Gas O2 Saturation (90 - 100 %) 100.0 100.0 100.0 100.0 ABG pH (7.35 - 7.45) 7.386 7.320 L 7.206 *L 7.406 ABG pCO2 (35.0 - 45 mmHg) 38.2 52.2 *H 64.2 *H 34.5 L ABG pO2 (80 - 100.0 mmHg) 479.0 *H 494.4 *H 491.5 *H 554.3 *H ABG HCO3 (22.0 - 26.0 MMOL/L) 22.9 26.9 H 25.5 21.6 L ABG Total CO2 (22 - 29) 24.1 28.5 27.5 22.7 ABG Base Excess (0 - +/ MMOL/L) -1.9 L 0.5 -3.3 L -2.4 L ABG Hematocrit (38 - 51 %) 20 L 22 L 33 L 39 ABG Hemoglobin (12.5 - 16.9 G/DL) 6.9 L 7.5 L 11.3 L 13.3 Sodium (134 - 147 mmol/L) 138 141 143 145 Potassium (3.4 - 5.0 mmol/L) 6.1 *H 5.5 H 4.0 4.3 Chloride (100 - 108 mmol/L) 106 106 110 H 110 H Ionized Calcium (1.12 - 1.32 MMOL/L) 1.24 1.31 1.15 1.21 Lactic Acid (0.9 - 1.7 mmol/l) 1.5 1.6 < 0.3 L < 0.3 L Laboratory Tests 10/22 10/22 10/22 10/22 10/22 0620 0449 0340 0253 0026 Chemistry Sodium (134 - 147 mEq/L) 144 Potassium (3.4 - 5.0 mEq/L) 4.4 Chloride (100 - 108 mEq/L) 111 H Carbon Dioxide (21 - 33 mEq/l) 26 Anion Gap (0 - 20) 11 BUN (7 - 25 mg/dL) 22 Creatinine (0.6 - 1.3 mg/dL) 1.1 POC Creatinine (0.6 - 1.3 mg/dL) 1.1 1.1 1.2 1.2 Glomerular Filtr Rate (80 - 90) 75.9 L Glucose (77 - 141 mg/dL) 122 POC Glucose (mg/dL) (70 - 110 MG/DL) 160 H 145 H 122 H 127 H Calcium (8.0 - 10.5 mg/dL) 8.8 Magnesium (1.6 - 2.6 mg/dL) 2.12 Total Bilirubin (0.0 - 1.0 mg/dL) 0.70 Direct Bilirubin (0.1 - 0.3 MG/DL) 0.30 Indirect Bilirubin (MG/DL) 0.40 AST (8 - 34 IUnit/L) 59 H ALT (10 - 49 IUnit/L) 21 Total Alk Phosphatase (20 - 125 IUnit/L) 59 Total Protein (6.4 - 8.2 g/dL) 5.8 L Albumin (3.4 - 5.0 g/dL) 2.90 L 10/21 10/21 10/21 10/21 10/21 2242 2057 1717 1511 1429 Chemistry POC Creatinine (0.6 - 1.3 mg/dL) 1.2 1.2 1.2 1.1 1.1 POC Glucose (mg/dL) (70 - 110 MG/DL) 139 H 125 H 114 H 143 H 159 H 10/21 10/21 10/21 10/21 10/21 1400 1355 1335 1308 1243 Chemistry Sodium (134 - 147 mEq/L) 143 Potassium (3.4 - 5.0 mEq/L) 4.6 Chloride (100 - 108 mEq/L) 109 H Carbon Dioxide (21 - 33 mEq/l) 25 Anion Gap (0 - 20) 13 BUN (7 - 25 mg/dL) 23 Creatinine (0.6 - 1.3 mg/dL) 1.0 POC Creatinine (0.6 - 1.3 mg/dL) 1.1 1.1 1.2 1.3 Glomerular Filtr Rate (80 - 90) 85.1 Glucose (77 - 141 mg/dL) 157 H POC Glucose (mg/dL) (70 - 110 MG/DL) 170 H 184 H 180 H 163 H Calcium (8.0 - 10.5 mg/dL) 9.7 Magnesium (1.6 - 2.6 mg/dL) 2.84 H 10/21 10/21 10/21 1216 1112 1029 Chemistry POC Creatinine (0.6 - 1.3 mg/dL) 1.1 1.0 1.0 POC Glucose (mg/dL) (70 - 110 MG/DL) 171 H 139 H 107 Laboratory Tests 10/21 10/21 10/21 10/21 10/21 1437 1400 1359 1337 1315 Coagulation INR (0.8 - 1.2) 1.4 H PTT ([place]) (25.0 - 39.5 Seconds) 35.2 PT Patient/Control Mix (9.3 - 12.9 15.8 H SECONDS) TEG R Time Citrated (4.6 - 9.1 min) 7.7 TEG K Time Citrated (0.8 - 2.1 min) 0.9 TEG Alpha Angle Citr (63 - 78 degrees) 77.0 TEG Max Ampl Citrated (52 - 69 mm) 67.3 TEG Max Ampl Citr Rapid (52 - 70 mm) 66.8 TEG Clot Time Rpd w Hep (4.3 - 8.3 mins) 6.1 Activated Coag Time (74 - 137 SEC) 124 117 481 H Func Fibrinogen MA (15 - 32 mm) 23.3 Func Fibrinogen Level (278 - 581 mg/dL) 425.2 10/21 10/21 10/21 10/21 10/21 1251 1228 1204 1121 1033 Coagulation Activated Coag Time (74 - 137 SEC) 561 H 809 H 395 H 579 H 147 H 10/21 0904 Coagulation TEG Max Amplitude (51 - 71 MM) 28.0 L TEG Max Ampl Kaol w Hep (53 - 68 mm) 68.0 TEG Factor Func Interp (2 - 19 mm) 19.9 H Plt % Inhibition (AA) (0 - 11 %) 83.2 H Plt Map % Inh ADP w/Hep (0 - 17 %) 14.6 Plt Agg - ADP (83 - 100 %) 85.4 Plt Agg - Arachidonic (89 - 100 %) 16.8 L Laboratory Tests 10/22 10/21 0253 1400 Hematology WBC (4.5 - 11.0 x10 3/uL) 9.2 9.6 RBC (4.00 - 5.60 x10 6/uL) 2.63 L 2.19 L Hgb (12.5 - 16.9 g/dL) 7.6 L 6.2 *L Hct (37.5 - 50.7 %) 24.0 L 19.2 L MCV (81.0 - 99.0 fL) 91.3 87.7 MCH (27.0 - 33.0 pg) 28.9 28.3 MCHC (33.0 - 37.0 g/dL) 31.7 L 32.3 L RDW (11.5 - 14.5 %) 13.3 13.4 Plt Count (150 - 400 x10 3/uL) 344 253 MPV (7.0 - 9.0 fL) 9.1 H 8.9 Neut % (Auto) (56.0 - 77.0 %) 76.2 85.8 H Lymph % (Auto) (14.0 - 32.0 %) 11.1 L 12.1 L [place] % (Auto) (4.8 - 9.0 %) 9.4 H 0.6 L Eos % (Auto) (0.3 - 3.7 %) 2.8 0.6 Baso % (Auto) (0.0 - 2.0 %) 0.3 0.1 Neut # (Auto) (2.0 - 7.6 x10 3/uL) 6.98 8.24 H Lymph # (Auto) (1.0 - 3.8 x10 3/uL) 1.02 1.16 [place] # (Auto) (0.1 - 0.8 x10 3/uL) 0.86 H 0.06 L Eos # (Auto) (0.0 - 0.2 x10 3/uL) 0.26 H 0.06 Baso # (Auto) (0.0 - 0.2 x10 3/uL) 0.03 0.01 Abs Immat Gran (auto) (0.00 - 0.03 x10 3/uL) 0.02 0.08 H Immature Gran % (0.0 - 2.0 %) 0.2 0.8 Nucleated RBC % (0 - 0 %) 0.0 0.0 Nucleated RBCs # (Man) (0.0 - 0.1 x10 3/uL) 0.00 0.00 Laboratory Tests 10/21 0850 Toxicology Urine Opiates Screen (NEGATIVE) NEGATIVE Urine Barbiturates (NEGATIVE) NEGATIVE Ur Phencyclidine Scrn (NEGATIVE) NEGATIVE Ur Amphetamines Screen (NEGATIVE) NEGATIVE U Benzodiazepines Scrn (NEGATIVE) NEGATIVE Urine Cocaine Screen (NEGATIVE) NEGATIVE Urine Cannabinoids (NEGATIVE) POSITIVE H Radiology data: Recent Impressions: RADIOLOGY - XR CHEST 1 V 10/21 1400 Report Impression - Status: SIGNED Entered: 10/21/2024 1425 IMPRESSION: There is minimal bibasilar atelectasis. No curved metallic needle is identified. Impression By: Nohemy Olsen M.D. RADIOLOGY - XR CHEST 1 V 10/21 1452 Report Impression - Status: SIGNED Entered: 10/21/2024 2314 IMPRESSION: Small degree of cardiac decompensation with probable small left-sided pleural effusion. This is similar in appearance to the earlier exam Interval placement of a nasogastric tube since the prior exam transversing the left hemidiaphragm No pneumothorax seen Impression By: [email or web address] - Aminata Celeste M.D. RADIOLOGY - XR CHEST 1 V 10/22 513 Report Impression - Status: SIGNED Entered: 10/22/2024 0817 IMPRESSION: There are patchy opacities in the lung bases bilaterally. This could be due to atelectasis or pneumonia. Impression By: Nohemy Olsen M.D. Results: labs reviewed, vital signs stable, rythm personally rev'd, current med profile rev'd Quality: Trauma Gen Surg Current Medications Current medication review: Current Medications Sig/Nia Start time Last Medication Dose Route Stop Time Status Admin Aspirin 81 MG BEDTIME 10/15 2100 AC PO 01/13 2059 Acetaminophen 650 MG Q6H PRN PRN 10/15 1030 AC PO 01/13 1029 Clopidogrel Bisulfate 75 MG DAILY 10/15 1030 AC PO 01/13 1029 Morphine Sulfate 2 MG Q4H PRN PRN 10/15 1030 AC IV 10/20 1029 Ondansetron HCl 4 MG Q4H PRN PRN 10/15 1030 AC IV 01/13 1029 Albuterol/Ipratropium 3 ML X1ED STA 10/14 2127 DC 10/14 NEB 10/14 2128 2148 Aspirin 324 MG X1ED STA 10/14 210 DC PO 10/14 210 Home Medications: FUROSEMIDE (LASIX) 20 MG PO DAILY LOSARTAN 100 MG PO DAILY SPIRONOLACTONE (ALDACTONE) 25 MG PO DAILY ASPIRIN 81 MG PO DAILY CARVEDILOL (carvediloL) 12.5 MG PO BID CLOPIDOGREL (PLAVIX) 75 MG PO DAILY ATORVASTATIN (LIPITOR) 80 MG PO BEDTIME I attest that the foregoing medication list in the medical record is true, accurate, and complete to the best of my knowledge. Diagnosis, Assessment Plan Hospital course to date: This is a 63-year-old male with a past medical history of HTN, HLD, CHF and CAD with s/p 7 stents who presented with complaints of chest pain. The pain did not radiate. Labs include troponin of 71, and all other labs unremarkable. Patient was transferred to [facility] from [facility] due to NSTEMI. He denies recent fever, cough, shortness of breath, or edema. 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 Left circumflex large dominant vessel first obtuse marginal is patent has stents that looks fine another stent in the mid circumflex beyond the obtuse marginal that has 80 to 90% focal severe restenosis otherwise circumflex distally has diffuse disease distal disease. RCA small nondominant vessel. CV surgery consulted for evaluation of multi-vessel coronary artery disease. Dr. Ko has seen and examined the patient. Thank you for this kind consultation. Assessment/Plan: 1. Multi-vessel coronary artery disease s/p stents 2. Hypertension 3. Hyperlipidemia Patient not able to answer questions due to sedation effects following [facility] CABG workup initiated CT chest w/o contrast Vein mapping and marking Carotid US Urinalysis MRSA/MSSA Hemoglobin A1C Patient seen and examined by Dr. Ko. All questions answered. 10/17/24 Patient alert, awake, oriented, denies any chest pain Breathing comfortable on room air, encourage incentive spirometer teaching Labs and imaging reviewed Last dose of Plavix on 10/16, check platelet response to Plavix Urinalysis negative Hemoglobin A1c 5.[address] chest and MRSA/MSSA Carotid duplex shows 50 to 69% right internal carotid artery stenosis Vein mapping reviewed, veins not visualized on left knee and calf area Echocardiogram shows EF 35 to 39%, moderate to severe diffuse hypokinesis, grade 1 diastolic dysfunction, aortic valve thickening consistent with sclerosis, mild MR, small to moderate pericardial effusion Transfer to CVN 1 Further recommendations to follow Patient seen and examined by Dr. Ko, discussed plan of care with patient, questions were answered 10/18/24 Patient alert, awake, oriented, denies any chest pain Breathing comfortable on room air, encourage incentive spirometer teaching Labs and imaging reviewed, patient had positive drug screen amphetamines and cannabis, educated patient on drug cessation Last dose of Plavix on 10/16, check platelet response to Plavix-87 Urinalysis negative Hemoglobin A1c 5.[address] chest and MRSA/MSSA- Carotid duplex shows 50 to 69% right internal carotid artery stenosis Vein mapping reviewed, veins not visualized on left knee and calf area Echocardiogram shows EF 35 to 39%, moderate to severe diffuse hypokinesis, grade 1 diastolic dysfunction, aortic valve thickening consistent with sclerosis, mild MR, small to moderate pericardial effusion Plan for surgery in upcoming week once platelet response to Plavix improved Patient seen and examined by Dr. Ko, discussed plan of care with patient, questions were answered. 10/19/24 Patient alert, awake, oriented, denies any chest pain Breathing comfortable on room air, encourage incentive spirometer teaching Labs and imaging reviewed, patient had positive drug screen amphetamines and cannabis, educated patient on drug cessation Last dose of Plavix on 10/16, check platelet response to Plavix-87 - Repeat Platelet response and TEG tomorrow morning Urinalysis negative Hemoglobin A1c 5.3 CT chest completed, showing Cardiomegaly with a 2 cm thick pericardial effusion MRSA/MSSA negative Carotid duplex shows 50 to 69% right internal carotid artery stenosis Vein mapping reviewed, veins not visualized on left knee and calf area Echocardiogram shows EF 35 to 39%, moderate to severe diffuse hypokinesis, grade 1 diastolic dysfunction, aortic valve thickening consistent with sclerosis, mild MR, small to moderate pericardial effusion Plan for surgery later in the week once platelet response to Plavix has improved Patient seen and examined by Dr. Ko, discussed plan of care with patient, questions were answered. 10/20/24 Patient alert, awake, oriented, denies any chest pain Breathing comfortable on room air, encourage incentive spirometer teaching Labs and imaging reviewed, patient had positive drug screen amphetamines and cannabis, educated patient on drug cessation Last dose of Plavix on 10/16, check platelet response to Plavix-87 -Platelet response today is 109, TEG completed ADP % inhibition 20.6, ADP 59.4 Urinalysis negative Hemoglobin A1c 5.3 CT chest completed, showing Cardiomegaly with a 2 cm thick pericardial effusion MRSA/MSSA negative Carotid duplex shows 50 to 69% right internal carotid artery stenosis Vein mapping reviewed, veins not visualized on left knee and calf area Echocardiogram shows EF 35 to 39%, moderate to severe diffuse hypokinesis, grade 1 diastolic dysfunction, aortic valve thickening consistent with sclerosis, mild MR, small to moderate pericardial effusion PFTs to be completed tomorrow Surgery will be scheduled later this week. Patient seen and examined by Dr. oK, discussed plan of care with patient, questions were answered. 10/21/24 Events occurred yesterday and overnight, where patient had went missing for a couple hours during the evening and then the family was found vaping in the patient's room. Dr. Ko discussed with the patient the expectations and rules that must be followed while in the hospital. The patient understands, and agreed that he would abstain from any drug use or smoking. A drug toxicology screen was completed, positive for Cannabinoids. Patient will benefit from surgical revascularization, Dr. Ko explained to the patient and family the need for coronary artery bypass graft surgery. He explained in detail the operation, risks involved, STS risk score calculator, benefits, alternatives, and complications. Patient acknowledges understanding and is agreeable to proceed, all questions were answered and consent is obtained. Patient is scheduled for coronary artery bypass graft surgery this afternoon. 1. Coronary artery bypass graft surgery x4 (NIEVES to LAD, saphenous vein to diagonal, saphenous vein to first marginal, saphenous vein to second marginal). 2. Amputation of left atrial appendage. 3. Endoscopic vein harvest independent bilateral greater saphenous vein. 4. Posterior pericardiotomy. 10/22/24 POD 1 Patient alert, awake, oriented, reports pain uncontrolled Labs reviewed, hemoglobin 7.6, given 1 unit of PRBC yesterday, replace electrolytes as needed, creatinine 1.1 H H at noon Breathing comfortably on RA, encourage incentive spirometer use and deep breathing, nebs, chest x-ray reviewed Chest tube outputs LP 260cc, MS 270cc overnight, keep in place and continue monitoring, will reassess after ambulation Normal sinus rhythm, epicardial pacing wires on standby, monitoring blood pressure, CVP 7 Advance diet as tolerated, nutritional supplements, bowel regimen, monitoring BS Montiel, Urine output overnight 1020cc, strict I's O's, daily standing scale weights, +2428 24 hr- fluid balance PT/OT, OOB for all meals, encourage ambulation DVT prophylaxis with SCDs, GI prophylaxis with PPI Disposition: patient and family admitted yesterday they are not at one specific place living. Consult case management for possible SNF vs. rehab Continue supportive care ICC following Patient seen and examined by Dr. Ko. Discussed plan of care with patient, nurse and interdisciplinary team. All questions answered. Consultants: cardiology Code status: full code Plan discussed with: patient, collaborating MD, nurse, interdisc care team at 0931 at 2228 RPT #:[id number] END OF REPORT [facility] 2024-10-22 07:22:00 [facility] ([facility]) Cardiology Progress Note REPORT#:[id number] REPORT STATUS: Signed REPORT INITIALIZATION DATE:10/22/24 TIME: 721 PATIENT: CLEO LONG UNIT #: [id number] ROOM/BED: [place] [address] : 62 AGE: 63 SEX: M ATTEND: Shyla Zepeda MD ADM AUTHOR: Alec Norris MD REPT SERVICE DT/TIME: 10/22/24721 * ALL edits or amendments must be made on the electronic/computer document * Objective General VS/I O: 24 hour I O ending at 0700: 10/22 0700 10/21 1900 Intake Total 2086.00 3191.70 Output Total 1485 1365 Balance 601.00 1826.70 Intake, Fresh 327 Frozen Plasma Intake, IV 1256.00 2376.70 Intake, Oral 480 0 Intake, 350 Packed Cells Intake, 488 Platelet Output, Chest 540 410 Tube Drainage Output, Urine 945 955 Patient 74.1 kg Weight Weight Standing scale Measurement Method Vital Signs: Date Time Temp Pulse Resp B/P B/P Pulse O2 O2 Flow FiO2 Mean Ox Delivery Rate 10/22 0600 132/69 94 10/22 0600 37.3 74 14 135/54 74 97 10/22 0530 124/72 91 10/22 0530 37.6 78 15 127/57 74 94 10/22 0500 127/63 88 10/22 0500 37.7 76 13 122/54 71 95 10/22 0445 Nasal 3 cannula 10/22 0430 133/73 97 10/22 0430 37.7 78 18 148/62 85 98 10/22 0400 37.3 10/22 0400 High flow 6 nasal cannula 10/22 0400 119/64 85 10/22 0400 37.5 76 25 118/49 69 99 10/22 0330 140/70 98 10/22 0330 37.8 71 17 138/54 78 100 10/22 0300 128/68 92 10/22 0300 37.8 72 17 145/56 81 100 10/22 0256 72 100 40 10/22 0256 100 BiPAP 40 10/22 0230 123/67 88 10/22 0230 37.7 74 21 134/57 80 99 10/22 0212 114/78 92 10/22 0212 37.9 79 17 129/63 81 99 10/22 0200 137/70 97 10/22 0200 38.0 72 16 159/63 87 99 10/22 0100 38.1 72 16 148/74 98 100 10/22 0037 BiPAP 40 10/22 0000 36.7 10/22 0000 BiPAP 60 10/22 0000 38.3 73 17 117/59 78 100 10/21 2351 BiPAP 60 10/21 2339 75 100 60 10/21 2339 100 BiPAP 60 10/21 2300 38.7 79 14 133/68 89 95 10/21 2245 High flow 12 nasal cannula 10/21 2200 37.9 83 18 154/78 103 92 10/21 2100 38.4 80 17 154/72 99 98 10/21 2007 98 High flow 10 nasal cannula 10/21 2000 36.9 10/21 2000 High flow 10 nasal cannula 10/21 2000 37.7 79 26 129/73 91 98 10/21 1900 36.6 75 21 121/66 84 10/21 1730 40 10/21 1639 73 18 98 10/21 1639 69 100 40 10/21 1515 80 100 40 10/21 1500 Ventilator 10/21 1432 80 100 40 10/21 1429 40 10/21 1420 100 Ventilator 50 10/21 1420 80 100 50 10/21 0813 36.6 59 19 136/68 0.0 97 10/21 0801 95 Room air PATIENT WEIGHT: Weight (lb): 163 Weight (oz): 5.8 Weight (kg): 74.100 Medications: Active Meds + DC'd Last 24 Hrs Ipratropium [place] (ATROVENT) 500 MCG RTQ2H PRN PRN INH Cyanocobalamin (Vitamin B-12 500 mcg tab) 500 MCG DAILY PO Ferrous Sulfate (FERROUS SULFATE) 325 MG DAILY PO Bisacodyl (DULCOLAX) 10 MG ONCE PRN RECTAL Magnesium Hydroxide (MILK OF MAGNESIA) 30 ML ONCE PRN PO Clopidogrel Bisulfate (Plavix) 75 MG DAILY PO Polyethylene Glycol (MIRALAX) 17 GM DAILY PO Pantoprazole (PROTONIX) 40 MG DAILY@0600 PO Cefazolin Sodium (ceFAZolin 2 GM Inj) 2 GM PREOP ONCALL IV (DC) Sodium Chloride (SODIUM CHLORIDE) 20 ML Metoprolol Tartrate (LOPRESSOR) 6.25 MG ONCE ONE PO (DC) Vancomycin HCl (VANCOMYCIN HCL) 1,000 MG PREOP ONCALL IV (DC) Sodium Chloride (SODIUM CHLORIDE 0.9%) 250 ML Verapamil HCl (ISOPTIN) 16.6 MG .Q24H ONE IV (DC) Heparin Sodium (Porcine) (HEPARIN SODIUM) 1,660 UNIT Sodium Bicarbonate (SODIUM BICARBONATE) 0.7 ML Nitroglycerin/Dextrose (NITROGLYCERIN 50MG/D5W 250ML) 8.3 MG Lactated Ringer's (LACTATED RINGERS) 949.5 ML Acetaminophen (OFIRMEV 10MG/ML) 100 ML Q6H IV Atorvastatin Calcium (LIPITOR) 40 MG 2100 PO Docusate Sodium (COLACE) 100 MG BID PO Metoprolol Tartrate (LOPRESSOR) 12.5 MG Q12HR PO Sennosides (Senna Lax 8.6 MG TABLET) 17.2 MG BEDTIME PO Aspirin (ASPIRIN) 81 MG DAILY PO Sodium Chloride (SODIUM CHLORIDE 0.9%) 100 ML ASDIR PRN IV Sodium Chloride (SODIUM CHLORIDE 0.9%) 100 ML ASDIR PRN IV Sodium Chloride (SODIUM CHLORIDE 0.9%) 100 ML ASDIR PRN IV Amiodarone HCl (CORDARONE) 200 MG TID PO Fentanyl Citrate (SUBLIMAZE) 0 .STK-MED ONE .ROUTE (DC) Cefazolin Sodium (KEFZOL OR ANCEF) 3 GM ONCE ONE IV Sodium Chloride (SODIUM CHLORIDE 0.9%) 250 ML Vancomycin HCl (VANCOMYCIN HCL) 0 .STK-MED ONE .ROUTE (DC) Ipratropium [place] (ATROVENT) 500 MCG RTQ4H INH Acetaminophen (TYLENOL) 650 MG Q4H PRN PRN PO Acetaminophen (TYLENOL) 650 MG Q4H PRN PRN RECTAL Albumin Human (ALBUMINAR 25%) 25 GM ASDIR PRN IV Calcium Chloride (CALCIUM CHLORIDE) 1 GM ASDIR PRN IV Dextrose/Water (DEXTROSE 10% IN WATER) 125 ML ASDIR PRN IV (CKD) Dextrose/Water (DEXTROSE 10% IN WATER) 250 ML ASDIR PRN IV (CKD) Epinephrine (ADRENALIN CHLORIDE) 4 MG ASDIR IV Dextrose/Water (DEXTROSE 5% WATER) 246 ML Glucagon (GLUCAGON) 1 MG ASDIR PRN IM Insulin Human Regular (MYXREDLIN 100 UNITS/NS 100ML) 100 ML ASDIR IV ( CKD) Magnesium Sulfate (MAGNESIUM SULFATE 4GM/SWFI 100ML) 100 ML ASDIR PRN IV Magnesium Sulfate (MAGNESIUM SULFATE 2GM/SWFI 50ML) 50 ML ASDIR PRN IV Magnesium Sulfate/Dextrose (MAGNESIUM SULFATE 1GM/D5W 100ML) 100 ML ASDIR PRN IV Mupirocin (BACTROBAN 2% 22 GM OINTMENT) 1 APPLIC BID NASAL Nitroglycerin/Dextrose (NITROGLYCERIN 50,000MCG/D5W 250ML) 250 ML ASDIR IV Norepinephrine/Dextrose (Norepinephrine 8 MG/D5W 250 mL) 250 ML TITRATE IV Ondansetron HCl (ZOFRAN) 4 MG Q6H PRN PRN IV Oxycodone HCl (ROXICODONE) 5 MG Q4H PRN PRN PO Oxycodone HCl (ROXICODONE) 10 MG Q4H PRN PRN PO Potassium Chloride (KCL 20MEQ/SWFI 100ML) 100 ML ASDIR PRN IV Sodium Bicarbonate (SODIUM BICARBONATE) 50 MEQ ASDIR PRN IV Sodium Chloride (SODIUM CHLORIDE 0.9%) 250 ML Q24H IV Cefazolin Sodium (ceFAZolin 2 GM Inj) 2 GM PREOP ONCALL IV (DC) Sodium Chloride (SODIUM CHLORIDE) 20 ML Metoprolol Tartrate (LOPRESSOR) 6.25 MG ONCE ONE PO (DC) Vancomycin HCl (VANCOMYCIN HCL) 1,000 MG PREOP ONCALL IV (DC) Sodium Chloride (SODIUM CHLORIDE 0.9%) 250 ML Verapamil HCl (ISOPTIN) 16.6 MG .Q24H ONE IV (DC) Heparin Sodium (Porcine) (HEPARIN SODIUM) 1,660 UNIT Sodium Bicarbonate (SODIUM BICARBONATE) 0.7 ML Nitroglycerin/Dextrose (NITROGLYCERIN 50MG/D5W 250ML) 8.3 MG Lactated Ringer's (LACTATED RINGERS) 949.5 ML Vasopressin (VASOSTRICT) 0 .STK-MED ONE .ROUTE (DC) Influenza Virus Vacc Triv Types A B (Fluzone Trivalent 9757-1683 Syringe) 45 MCG ASDIR IM (DC) Papaverine HCl (PAPAVERINE HCL) 0 .STK-MED ONE IV (DC) Cefazolin Sodium (KEFZOL OR ANCEF) 0 .STK-MED ONE .ROUTE (DC) Sodium Chloride (SODIUM CHLORIDE 0.9%) 250 ML .STK-MED ONE IV (DC) Vancomycin HCl (VANCOMYCIN HCL) 0 .STK-MED ONE .ROUTE (DC) Acetaminophen (TYLENOL EXTRA STRENGTH) 1,000 MG PREOP ONCALL PO (DC) Gabapentin (NEURONTIN) 200 MG PREOP ONCALL PO (DC) Sodium Chloride (SODIUM CHLORIDE 0.9%) 100 ML ASDIR PRN IV (DC) Sodium Chloride (SODIUM CHLORIDE 0.9%) 100 ML ASDIR PRN IV (DC) Sodium Chloride (SODIUM CHLORIDE 0.9%) 100 ML ASDIR PRN IV (DC) Hydralazine HCl (APRESOLINE) 10 MG Q6H PRN PRN IV (DC) Albuterol/Ipratropium (DUONEB) 3 ML RTQ4H PRN PRN NEB (DC) Melatonin (Melatonin) 6 MG BEDTIME PO (DC) Aspirin (ASPIRIN) 325 MG DAILY PO (DC) Nicotine (NICODERM) 14 MG DAILY TRANSDERM (DC) Atorvastatin Calcium (LIPITOR) 80 MG BEDTIME PO (DC) Carvedilol (COREG) 12.5 MG BID PO (DC) Furosemide (LASIX) 20 MG DAILY PO (DC) Spironolactone (ALDACTONE) 25 MG DAILY PO (DC) Acetaminophen (TYLENOL) 650 MG Q6H PRN PRN PO (DC) Ondansetron HCl (ZOFRAN) 4 MG Q4H PRN PRN IV (DC) Physical Exam General appearance: alert, awake Cardiovascular: CV assessment: regular rate and rhythm, BP pulses = bilaterally, normal heart sounds, pedal pulses present, no ectopy, no heave, no murmur Respiratory: clear to auscultation Results Findings/Data: Laboratory Tests 10/22 10/22 10/22 10/22 0620 0449 0340 0026 Blood Gas Puncture Site Art Line Art Line Art Line Art Line O2 Saturation (90 - 100 %) 93.8 93.7 97.8 99.7 ABG pH (7.35 - 7.45) 7.393 7.393 7.405 7.424 ABG pCO2 (35.0 - 45 mmHg) 40.8 40.9 44.5 44.0 ABG pO2 (80 - 100.0 mmHg) 70.4 L 70.4 L 101.3 H 203.4 *H ABG PO2/FiO2 Ratio (mm/Hg) 253.25 339.00 ABG HCO3 (22.0 - 26.0 MMOL/L) 24.8 24.9 27.9 H 28.8 *H ABG Total CO2 (22 - 29) 26.1 26.1 29.2 H 30.2 H ABG Base Excess (0 - +/ MMOL/L) -0.1 L 0.0 3.1 4.4 H ABG Hematocrit (38 - 51 %) 22 L 23 L 21 L 20 L ABG Hemoglobin (12.5 - 16.9 G/DL) 7.4 L 7.9 L 7.1 L 6.9 L Sodium (134 - 147 mmol/L) 143 144 146 147 Potassium (3.4 - 5.0 mmol/L) 4.2 4.5 4.3 4.0 Chloride (100 - 108 mmol/L) 108 110 H 109 H 109 H Ionized Calcium (1.12 - 1.32 MMOL/L) 1.28 1.28 1.34 H 1.38 H Lactic Acid (0.9 - 1.7 mmol/l) 1.3 2.3 H 1.1 1.1 Temperature (F) 99 99 100 98 O2 Delivery Device Cannula Cannula BiPAP BiPAP FiO2 (%) 40 60 PEEP (cmH2O) 6 6 Pressure Support (cmH2O) 12 10/21 2242 2057 1717 1511 Blood Gas Puncture Site Art Line Art Line Art Line Art Line O2 Saturation (90 - 100 %) 91.6 95.0 99.4 94.4 ABG pH (7.35 - 7.45) 7.461 H 7.422 7.384 7.348 L ABG pCO2 (35.0 - 45 mmHg) 37.6 43.5 47.8 H 64.2 *H ABG pO2 (80 - 100.0 mmHg) 58.9 L 74.8 L 160.3 H 79.5 L ABG PO2/FiO2 Ratio (mm/Hg) 400.75 198.75 ABG HCO3 (22.0 - 26.0 MMOL/L) 26.8 H 28.3 *H 28.5 *H 35.3 *H ABG Total CO2 (22 - 29) 28.0 29.7 H 30.0 H 37.3 H ABG Base Excess (0 - +/ MMOL/L) 3.0 3.9 3.5 9.7 H ABG Hematocrit (38 - 51 %) 23 L 20 L 18 L 18 L ABG Hemoglobin (12.5 - 16.9 G/DL) 7.9 L 6.9 L 6.0 L 6.3 L Eduarda Test N/A N/A N/A Sodium (134 - 147 mmol/L) 145 146 147 142 Potassium (3.4 - 5.0 mmol/L) 3.8 3.7 3.6 4.4 Chloride (100 - 108 mmol/L) 111 H 109 H 109 H 109 H Ionized Calcium (1.12 - 1.32 1.29 1.43 H 1.44 H 1.47 H MMOL/L) Lactic Acid (0.9 - 1.7 mmol/l) 1.6 1.5 1.6 2.7 H Temperature (F) 98 100.9 97.9 97.5 O2 Delivery Device Cannula HFNC Adult Vent Adult Vent Vent Mode CPAP/PS FiO2 (%) 40 40 Tidal Volume (ml) 500 PEEP (cmH2O) 5 5 Pressure Support (cmH2O) 10 10 10/21 10/21 10/21 10/21 1429 1355 1335 1308 Blood Gas Puncture Site Art Line O2 Saturation (90 - 100 %) 98.7 100.0 99.9 100.0 ABG pH (7.35 - 7.45) 7.367 7.337 L 7.302 L 7.445 ABG pCO2 (35.0 - 45 mmHg) 50.6 *H 43.3 39.2 36.3 ABG pO2 (80 - 100.0 mmHg) 127.8 H 392.1 *H 354.2 *H 487.9 *H ABG PO2/FiO2 Ratio (mm/Hg) 255.60 ABG HCO3 (22.0 - 26.0 MMOL/L) 29.1 *H 23.2 19.4 L 24.9 ABG Total CO2 (22 - 29) 30.6 H 24.5 20.6 L 26.0 ABG Base Excess (0 - +/ MMOL/L) 3.8 -2.5 L -6.4 L 0.8 ABG Hematocrit (38 - 51 %) 20 L 20 L 17 L 18 L ABG Hemoglobin (12.5 - 16.9 G/DL) 6.9 L 6.7 L 5.9 L 6.3 L Eduarda Test N/A Sodium (134 - 147 mmol/L) 143 141 138 137 Potassium (3.4 - 5.0 mmol/L) 4.5 4.9 5.3 H 6.4 *H Chloride (100 - 108 mmol/L) 106 108 110 H 101 Ionized Calcium (1.12 - 1.32 MMOL/L) 1.44 H 1.29 1.63 *H 1.17 Lactic Acid (0.9 - 1.7 mmol/l) 2.0 H 2.3 H 2.3 H Temperature (F) 97.7 O2 Delivery Device Adult Vent Vent Mode AC Vent Rate (/MIN) 20 FiO2 (%) 50 Tidal Volume (ml) 500 PEEP (cmH2O) 5 10/21 10/21 10/21 10/21 1243 1216 1112 1029 Blood Gas O2 Saturation (90 - 100 %) 100.0 100.0 100.0 100.0 ABG pH (7.35 - 7.45) 7.386 7.320 L 7.206 *L 7.406 ABG pCO2 (35.0 - 45 mmHg) 38.2 52.2 *H 64.2 *H 34.5 L ABG pO2 (80 - 100.0 mmHg) 479.0 *H 494.4 *H 491.5 *H 554.3 *H ABG HCO3 (22.0 - 26.0 MMOL/L) 22.9 26.9 H 25.5 21.6 L ABG Total CO2 (22 - 29) 24.1 28.5 27.5 22.7 ABG Base Excess (0 - +/ MMOL/L) -1.9 L 0.5 -3.3 L -2.4 L ABG Hematocrit (38 - 51 %) 20 L 22 L 33 L 39 ABG Hemoglobin (12.5 - 16.9 G/DL) 6.9 L 7.5 L 11.3 L 13.3 Sodium (134 - 147 mmol/L) 138 141 143 145 Potassium (3.4 - 5.0 mmol/L) 6.1 *H 5.5 H 4.0 4.3 Chloride (100 - 108 mmol/L) 106 106 110 H 110 H Ionized Calcium (1.12 - 1.32 MMOL/L) 1.24 1.31 1.15 1.21 Lactic Acid (0.9 - 1.7 mmol/l) 1.5 1.6 < 0.3 L < 0.3 L Laboratory Tests 10/22 10/22 10/22 10/22 10/22 0620 0449 0340 0253 0026 Chemistry Sodium (134 - 147 mEq/L) 144 Potassium (3.4 - 5.0 mEq/L) 4.4 Chloride (100 - 108 mEq/L) 111 H Carbon Dioxide (21 - 33 mEq/l) 26 Anion Gap (0 - 20) 11 BUN (7 - 25 mg/dL) 22 Creatinine (0.6 - 1.3 mg/dL) 1.1 POC Creatinine (0.6 - 1.3 mg/dL) 1.1 1.1 1.2 1.2 Glomerular Filtr Rate (80 - 90) 75.9 L Glucose (77 - 141 mg/dL) 122 POC Glucose (mg/dL) (70 - 110 MG/DL) 160 H 145 H 122 H 127 H Calcium (8.0 - 10.5 mg/dL) 8.8 Magnesium (1.6 - 2.6 mg/dL) 2.12 Total Bilirubin (0.0 - 1.0 mg/dL) 0.70 Direct Bilirubin (0.1 - 0.3 MG/DL) 0.30 Indirect Bilirubin (MG/DL) 0.40 AST (8 - 34 IUnit/L) 59 H ALT (10 - 49 IUnit/L) 21 Total Alk Phosphatase (20 - 125 IUnit/L) 59 Total Protein (6.4 - 8.2 g/dL) 5.8 L Albumin (3.4 - 5.0 g/dL) 2.90 L 10/21 10/21 10/21 10/21 10/21 2242 2057 1717 1511 1429 Chemistry POC Creatinine (0.6 - 1.3 mg/dL) 1.2 1.2 1.2 1.1 1.1 POC Glucose (mg/dL) (70 - 110 MG/DL) 139 H 125 H 114 H 143 H 159 H 10/21 10/21 10/21 10/21 10/21 1400 1355 1335 1308 1243 Chemistry Sodium (134 - 147 mEq/L) 143 Potassium (3.4 - 5.0 mEq/L) 4.6 Chloride (100 - 108 mEq/L) 109 H Carbon Dioxide (21 - 33 mEq/l) 25 Anion Gap (0 - 20) 13 BUN (7 - 25 mg/dL) 23 Creatinine (0.6 - 1.3 mg/dL) 1.0 POC Creatinine (0.6 - 1.3 mg/dL) 1.1 1.1 1.2 1.3 Glomerular Filtr Rate (80 - 90) 85.1 Glucose (77 - 141 mg/dL) 157 H POC Glucose (mg/dL) (70 - 110 MG/DL) 170 H 184 H 180 H 163 H Calcium (8.0 - 10.5 mg/dL) 9.7 Magnesium (1.6 - 2.6 mg/dL) 2.84 H 10/21 10/21 10/21 1216 1112 1029 Chemistry POC Creatinine (0.6 - 1.3 mg/dL) 1.1 1.0 1.0 POC Glucose (mg/dL) (70 - 110 MG/DL) 171 H 139 H 107 Laboratory Tests 10/21 10/21 10/21 10/21 10/21 1437 1400 1359 1337 1315 Coagulation INR (0.8 - 1.2) 1.4 H PTT (Rosi) (25.0 - 39.5 Seconds) 35.2 PT Patient/Control Mix (9.3 - 12.9 15.8 H SECONDS) TEG R Time Citrated (4.6 - 9.1 min) 7.7 TEG K Time Citrated (0.8 - 2.1 min) 0.9 TEG Alpha Angle Citr (63 - 78 degrees) 77.0 TEG Max Ampl Citrated (52 - 69 mm) 67.3 TEG Max Ampl Citr Rapid (52 - 70 mm) 66.8 TEG Clot Time Rpd w Hep (4.3 - 8.3 mins) 6.1 Activated Coag Time (74 - 137 SEC) 124 117 481 H Func Fibrinogen MA (15 - 32 mm) 23.3 Func Fibrinogen Level (278 - 581 mg/dL) 425.2 10/21 10/21 10/21 10/21 10/21 1251 1228 1204 1121 1033 Coagulation Activated Coag Time (74 - 137 SEC) 561 H 809 H 395 H 579 H 147 H 10/21 10/21 0904 0756 Coagulation TEG Max Amplitude (51 - 71 MM) 28.0 L TEG Max Ampl Kaol w Hep (53 - 68 mm) 68.0 TEG Factor Func Interp (2 - 19 mm) 19.9 H Plt % Inhibition (AA) (0 - 11 %) 83.2 H Plt Map % Inh ADP w/Hep (0 - 17 %) 14.6 Plt P2Y12 React Units (182 - 335 PRU) 119 L Plt Agg - ADP (83 - 100 %) 85.4 Plt Agg - Arachidonic (89 - 100 %) 16.8 L Laboratory Tests 10/22 10/21 0253 1400 Hematology WBC (4.5 - 11.0 x10 3/uL) 9.2 9.6 RBC (4.00 - 5.60 x10 6/uL) 2.63 L 2.19 L Hgb (12.5 - 16.9 g/dL) 7.6 L 6.2 *L Hct (37.5 - 50.7 %) 24.0 L 19.2 L MCV (81.0 - 99.0 fL) 91.3 87.7 MCH (27.0 - 33.0 pg) 28.9 28.3 MCHC (33.0 - 37.0 g/dL) 31.7 L 32.3 L RDW (11.5 - 14.5 %) 13.3 13.4 Plt Count (150 - 400 x10 3/uL) 344 253 MPV (7.0 - 9.0 fL) 9.1 H 8.9 Neut % (Auto) (56.0 - 77.0 %) 76.2 85.8 H Lymph % (Auto) (14.0 - 32.0 %) 11.1 L 12.1 L [place] % (Auto) (4.8 - 9.0 %) 9.4 H 0.6 L Eos % (Auto) (0.3 - 3.7 %) 2.8 0.6 Baso % (Auto) (0.0 - 2.0 %) 0.3 0.1 Neut # (Auto) (2.0 - 7.6 x10 3/uL) 6.98 8.24 H Lymph # (Auto) (1.0 - 3.8 x10 3/uL) 1.02 1.16 [place] # (Auto) (0.1 - 0.8 x10 3/uL) 0.86 H 0.06 L Eos # (Auto) (0.0 - 0.2 x10 3/uL) 0.26 H 0.06 Baso # (Auto) (0.0 - 0.2 x10 3/uL) 0.03 0.01 Abs Immat Gran (auto) (0.00 - 0.03 x10 3/uL) 0.02 0.08 H Immature Gran % (0.0 - 2.0 %) 0.2 0.8 Nucleated RBC % (0 - 0 %) 0.0 0.0 Nucleated RBCs # (Man) (0.0 - 0.1 x10 3/uL) 0.00 0.00 Laboratory Tests 10/21 0850 Toxicology Urine Opiates Screen (NEGATIVE) NEGATIVE Urine Barbiturates (NEGATIVE) NEGATIVE Ur Phencyclidine Scrn (NEGATIVE) NEGATIVE Ur Amphetamines Screen (NEGATIVE) NEGATIVE U Benzodiazepines Scrn (NEGATIVE) NEGATIVE Urine Cocaine Screen (NEGATIVE) NEGATIVE Urine Cannabinoids (NEGATIVE) POSITIVE H Laboratory Tests 10/22 10/21 0253 1400 Chemistry Magnesium (1.6 - 2.6 mg/dL) 2.12 2.84 H Diagnosis, Assessment Plan Free Text DxA P Notes Free Text DxA P Notes: 1. CAD: Two-vessel, plan for CABG sometime next week. 2. Hyperlipidemia: Continue statin 3. Hypertension: Continue carvedilol s/p cabg today extubated chest tubes in place stable hemodynamics at 1752 RPT #:[id number] END OF REPORT [facility] 2024-10-22 03:53:00 [id number] [address] PATIENT NAME: CLEO LONG ADMIT DATE: 10/14/24 ACCOUNT NO: [id number] ROOM NO: [facility] AGE: 63 REPORT TYPE: eELECTROCARDIOGRAM REPORT SEX: M ADMITTING PHYSICIAN:Shyla Zepeda MD ATTENDING PHYSICIAN:Shyla Zepeda MD Order: [id number] Test Reason : Cardiac Surgery Post Op Test Date/Time Stamp: SatOct 22 2024 03:53:13 Blood Pressure : / mmHG Vent. Rate : 077 BPM Atrial Rate : 077 BPM P-R Int : 140 ms QRS Dur : 114 ms QT Int : 408 ms P-R-T Axes : 073 -07 113 degrees QTc Int : 461 ms Normal sinus rhythm Low voltage QRS Inferior infarct , age undetermined T wave abnormality, consider lateral ischemia Abnormal ECG When compared with ECG of 21-OCT-2024 14:44, Significant changes have occurred Confirmed by Paola NORRIS MOHAN ([id number]) on 10/27/2024 5:56:52 AM Referred By: Self Referred Confirmed by:ALEC NORRIS M.D. at 0556 PATIENT NAME: CLEO LONG [facility] 2024-10-21 22:23:00 [id number] [place] [address] PATIENT NAME: CLEO LONG ADMIT DATE: 10/14/24 ACCOUNT NO: [id number] ROOM NO: [id number] AGE: 63 REPORT TYPE: OPERATIVE REPORT SEX: M ADMITTING PHYSICIAN:Shyla Zepeda MD ATTENDING PHYSICIAN:Shyla Zepeda MD OPERATION DATE: 10/21/2024 PREOPERATIVE DIAGNOSIS: Coronary artery disease. POSTOPERATIVE DIAGNOSIS: Coronary artery disease. PROCEDURES PERFORMED: 1. Coronary artery bypass graft surgery x4 (NIEVES to LAD, saphenous vein to diagonal, saphenous vein to first marginal, saphenous vein to second marginal). 2. Amputation of left atrial appendage. 3. Endoscopic vein harvest independent bilateral greater saphenous vein. 4. Posterior pericardiotomy. SURGEON: Susana Ko MD. PRINT DECORATOR: Lashawn Campbell. ANESTHESIOLOGIST: Dr. Fuchs. ANESTHESIA: General endotracheal anesthesia. ESTIMATED BLOOD LOSS: 100 mL. INDICATIONS: Mr. Long is a pleasant 63-year-old gentleman with severe coronary artery disease. After due preop counseling, he was brought to the operating room today for surgical revascularization. FINDINGS: 1. Vein was harvested from both thighs using endoscopic vein harvest technique. Vein was of marginal quality, thin walled, measuring about 3-4 mm in size. 2. Osteoporotic sternum. 3. Good quality NIEVES, measuring 2 mm in size with excellent flow. 4. Normal pericardium with significant amount of intrapericardial lesion probably due to pericarditis. 5. LAD, there was a stent in the LAD right up to about 3 cm on the apex. I had to perform arteriotomy distally into the LAD. The artery measured about 1.75 mm in size, good quality artery. 6. Diagonal 1.75 mm, diseased artery. 7. First marginal 2 mm, good quality artery. 8. Second marginal 2 mm, good quality artery. 9. Left atrial appendage was amputated half a centimeter from the base. This was then repaired with two layers of running pledgeted 4-0 Prolene suture. 10. Posterior pericardiotomy was performed making a cruciate incision in the PATIENT NAME: CLEO LONG posterior pericardium. DESCRIPTION OF PROCEDURE: Mr. Long was identified in the preoperative holding area and brought to the operating room and placed supine on the operating table. After induction of general endotracheal anesthesia, Montiel catheter, radial arterial line, and antibiotics were placed. The patient's anterior torso and both legs were prepped and draped in standard surgical fashion. Vein was harvested from both legs using endoscopic vein harvest technique. Following harvesting, subcutaneous tissue was closed with 2-0 Vicryl and skin with 4-0 Vicryl. Simultaneously, median sternotomy was performed. Left internal mammary artery was harvested. The patient was heparinized. Pericardium was opened longitudinally. Pericardial well was created. Cardiopulmonary bypass was instituted using ascending aorta and 3-stage cannula in the right atrium. The patient was cooled to 34 degrees centigrade. Crossclamp was applied and the heart was arrested with 1.5 liters antegrade cold blood cardioplegia. Cardioplegia was repeated every 10 minutes all throughout the duration of crossclamp. We began by exploring the second marginal. This was a slightly diseased artery measuring 2 mm in size. Arteriotomy was performed with Oneida blade and extended with Stanley scissors. A segment of previously harvested reverse saphenous vein was anastomosed in end-to-side manner using 7-0 Prolene suture. Vein graft to second marginal was brought along the left side of the heart and sized. Aortotomy was performed on the left aspect of the aorta using 4 mm punch. Proximal anastomosis of the second marginal graft was then performed using running 6-0 Prolene suture. Left atrial appendage was amputated half a centimeter from the base. This was then repaired with two layers of running pledgeted 4-0 Prolene suture. Cruciate incision was made in the posterior pericardium. The first marginal was explored. This was slightly diseased artery measuring 2 mm in size. Arteriotomy was performed with Oneida blade and extended with Stanley scissors. A segment of previously harvested reverse saphenous vein was anastomosed in end-to-side manner using 7-0 Prolene suture. Vein graft to first marginal was brought along the left side of the heart and sized. Aortotomy was performed on the left aspect of the aorta using 4 mm punch. Proximal anastomosis of the first marginal graft was then performed using running 6-0 Prolene suture. Rewarming was commenced at this stage. The diagonal was explored. This was a slightly diseased artery measuring about 1.5 mm in size. Arteriotomy was performed with Oneida blade and extended with Stanley scissors. A segment of previously harvested reverse saphenous vein was anastomosed in end-to-side manner using 7-0 Prolene suture. Vein graft to diagonal was brought along the left side of the heart and sized. Aortotomy was performed on the left aspect of the aorta using 4 mm punch. Proximal anastomosis of the diagonal graft was then performed using running 6-0 Prolene suture. Finally, LAD was explored just 2 cm shy of the apex. Arteriotomy was performed with Oneida blade and extended with Stanley scissors. NIEVES was anastomosed in an end-to-side manner using running 8-0 Prolene suture. NIEVES pedicle was tacked to the epicardium using two interrupted 6-0 Prolene suture. A slit was made in the pericardium in the left aspect, so as to accommodate the NIEVES. Careful de-aeration was performed and the crossclamp was released. One ventricular wire was placed. A 28-Pashto chest tube was placed in the mediastinum and 28-angled chest tube was placed in the left pleural space. Once the patient was at temperature, he was weaned off cardiopulmonary bypass with some inotropic support. Heparin was reversed with protamine. Decannulation was uneventful. After confirming hemostasis, the chest was closed in layers using stainless steel wires for the sternum, #1 Vicryl for the fascia, 2-0 Vicryl for the subcutaneous tissue and 4-0 Vicryl for the skin. The patient PATIENT NAME: CLEO LONG was transferred to Intensive Care Unit, intubated in stable condition. Dictated By: Susana Ko MD Date Dictated: 10/21/2024 22:23:11 Date Transcribed: 10/21/2024 23:44:31 AC/SEN Receipt ID: [id number] Authenticated and Edited by Deniz Ko MD On 10/31/24 4:46:02 PM at 0447 PATIENT NAME: CLEO LONG [facility] 2024-10-21 15:18:00 [facility]) Critical Care Consult Note REPORT#:[id number] REPORT STATUS: Signed REPORT INITIALIZATION DATE:10/21/24 TIME: 1517 PATIENT: CLEO LONG UNIT #: [id number] ROOM/BED: [place] [id number] : 62 AGE: 63 SEX: M ATTEND: Shyla Zepeda MD ADM AUTHOR: Vijay Olvera DO REPT SERVICE DT/TIME: 10/21/24 1518 * ALL edits or amendments must be made on the electronic/computer document * History of Present Illness HPI Requesting clinician: Dr. Ko Reason for consult: CABG Chief complaint: CAD HPI: Patient is a 63-year-old male with past medical history of hypertension, hyperlipidemia, CHF and coronary artery disease with 7 previous stents. Patient presented with chest pain. His left heart cath on the sixth that showed multivessel coronary artery disease. He underwent CABG x 4 today with CV surgery. He is not the CVICU for postoperative care. His postoperative echo had an EF of 50% on epi of 3. He was also on vasopressin 0.02 and on small dose of norepinephrine. He received 1 L of crystalloid intraoperatively and 250 of Cell Saver. He also received 2 units of platelets and 2 FFP. Currently sinus rhythm in the 60s and quickly titrating down on drips. Sedation is off. His paralytic was reversed. He was started on spontaneous breathing trial. Postop labs, EKG, chest x-ray pending. He is noted to have increased output out of his mediastinal drain. He put out 130 of sanguinous output in 1 hour. Tag sent and will give another FFP and platelet. History - Adult longitudinal Past medical history: Reports: Congestive heart failure, Coronary artery disease, Hypertension. Smoking status for patients 13 years old or older: Current every day smoker Allergies: Coded Allergies: No Known Allergies (10/14/24) Objective Physical Exam VS/I O: Last Documented: Result Date Time Pulse Ox 97 10/21 813 B/P 136/68 10/21 813 B/P Mean 0.0 10/21 813 Temp 97.9 10/21 813 Pulse 59 10/21 813 Resp 19 10/21 813 O2 Delivery Room air 10/21 08 FiO2 21 10/19 2147 24 hour I O ending at 0700: 10/21 0700 10/20 1900 Intake Total 50 530 Output Total 550 850 Balance -500 -320 Intake, Oral 50 530 Number 1 Bowel Movements Output, Urine 550 850 Patient Weight and BMI Weight (kg): 69.200 BMI: 21.9 Free Text Obj Notes Free Text Obj Notes: GEN: Appears in no acute distress, waking up from sedation HEENT: Atraumatic, normocephalic, moist mucous membranes NECK: Supple, good range of motion, no tenderness, no JVD LUNGS: Mechanical breath sounds symmetrical air entry, no acute respiratory distress, no accessory muscle use CV: S1, S2 regular rate and rhythm, warm and well perfused GI: Abdomen is soft, not tender or distended EXT/Musc: No edema or cyanosis. Pedal pulses present. Compartments soft Skin: Surgical site clean, dry and intact. Warm to touch NEURO: Slowly waking up from sedation, moving all extremity spontaneously Diagnosis, Assessment Plan Diagnosis, Assessment Plan Consultants: cardiology Free text DxA P: Patient is a 63-year-old male with multivessel coronary artery disease that is postop day 0 status post CABG x 4 Coronary disease NSTEMI CABG x 4 Bilateral EVH ALAA PP Coagulopathy Acute blood loss anemia following surgery History of hypertension History of hyperlipidemia Neuro: keep off sedation, multimodal pain control , neuro exam when awake Respiratory: CPAP as tolerated, plan for extubation, ABG and CXR reviewed Cardiovascular: Off all drips ,SBP goal <140, CTs to suction, monitor output, ekg, PO amiodarone and beta fletcher when appropriate. Renal: strict I/Os, monitor Cr and electrolytes, resuscitate as needed GI: bedside swallow then oral diet after extubation, bowel regimen ID: trend WBC, cont periop ABx per protocol Hem: monitor Hgb and CTs output, transfuse as needed, correct coagulopathy. ASA/ plavix when able. Tag sent. Give additional platelet and FFP Endo: BG control with insulin gtt per protocol Misc: PTOT consult, DVT and GI ppx with SCD and PPI Total critical care time 47 minutes spent treating the patient excluding any procedures performed Quality: [facility] Crit [facility] Current Medications Current medication review: Current Medications Sig/Nia Start time Last Medication Dose Route Stop Time Status Admin Aspirin 81 MG BEDTIME 10/15 2100 AC PO 01/13 2059 Acetaminophen 650 MG Q6H PRN PRN 10/15 1030 AC PO 01/13 1029 Clopidogrel Bisulfate 75 MG DAILY 10/15 1030 AC PO 01/13 1029 Morphine Sulfate 2 MG Q4H PRN PRN 10/15 1030 AC IV 10/20 1029 Ondansetron HCl 4 MG Q4H PRN PRN 10/15 1030 AC IV 01/13 1029 Albuterol/Ipratropium 3 ML X1ED STA 10/14 2127 DC 10/14 NEB 10/14 Aspirin 324 MG X1ED STA 10/14 2105 DC PO 10/14 2106 Home Medications: FUROSEMIDE (LASIX) 20 MG PO DAILY LOSARTAN 100 MG PO DAILY SPIRONOLACTONE (ALDACTONE) 25 MG PO DAILY ASPIRIN 81 MG PO DAILY CARVEDILOL (carvediloL) 12.5 MG PO BID CLOPIDOGREL (PLAVIX) 75 MG PO DAILY ATORVASTATIN (LIPITOR) 80 MG PO BEDTIME I attest that the foregoing medication list in the medical record is true, accurate, and complete to the best of my knowledge. at 1523 RPT #:[id number] END OF REPORT [facility] 2024-10-21 14:44:00 [id number] [address] PATIENT NAME: CLEO LONG ADMIT DATE: 10/14/24 ACCOUNT NO: [id number] ROOM NO: [facility] AGE: 63 REPORT TYPE: eELECTROCARDIOGRAM REPORT SEX: M ADMITTING PHYSICIAN:Shyla Zepeda MD ATTENDING PHYSICIAN:Shyla Zepeda MD Order: [id number] Test Reason : Cardiac Surgery Post Op Test Date/Time Stamp: SatOct 21 2024 14:44:52 Blood Pressure : / mmHG Vent. Rate : 080 BPM Atrial Rate : 058 BPM P-R Int : 000 ms QRS Dur : 218 ms QT Int : 572 ms P-R-T Axes : 000 060 143 degrees QTc Int : 659 ms Ventricular-paced rhythm with occasional premature ventricular complexes Abnormal ECG When compared with ECG of 14-OCT-2024 23:35, Significant changes have occurred Confirmed by Paola NORRIS MOHAN ([id number]) on 10/27/2024 5:56:41 AM Referred By: Self Referred Confirmed by:ALEC NORRIS M.D. at 0556 PATIENT NAME: CLEO LONG [facility] 2024-10-21 14:31:00 [facility] ([facility]) Clinical Note REPORT#:[id number] REPORT STATUS: Signed REPORT INITIALIZATION DATE:10/21/24 TIME: 143 PATIENT: CLEO LONG UNIT #: [id number] ROOM/BED: [facility] : 62 AGE: 63 SEX: M ATTEND: Shyla Zepeda MD ADM AUTHOR: Ann Marie Llanos APRN REPT SERVICE DT/TIME: 10/21/24 1431 * ALL edits or amendments must be made on the electronic/computer document * Clinical Note Note: Patient out of room for surgery during rounds, will see tomorrow POD1. at 1432 RPT #:[id number] END OF REPORT [facility] 2024-10-21 13:58:00 [facility] ([facility]) Brief Op Note REPORT#:[id number] REPORT STATUS: Signed REPORT INITIALIZATION DATE:10/21/24 TIME: 1358 PATIENT: CLEO LONG UNIT #: [id number] ROOM/BED: [place] [id number] : 62 AGE: 63 SEX: M ATTEND: Shyla Zepeda MD ADM AUTHOR: Deniz Ko MD REPT SERVICE DT/TIME: 10/21/24 1358 * ALL edits or amendments must be made on the electronic/computer document * Op/Inv Proc Note - Brief Pre-procedure diagnosis: Coronary artery disease Post-procedure diagnosis: same as pre procedure dx Procedures performed: CABG x4 (NIEVES-LAD, SVG-DIAG, SVG-OM1, SVG-Om2, ) Bilateral EVH ALAA PP Primary Surgeon: Dylan Stereo Equipment Installer(s): Lashawn Campbell Findings: LAD 2 mm Complications: none Estimated blood loss in ml's: 100cc Specimens removed/altered: Left atrial Appendage at 2228 RPT #:[id number] END OF REPORT [facility] 2024-10-21 07:03:00 [facility] ([facility]) Cardiology Progress Note REPORT#:[id number] REPORT STATUS: Signed REPORT INITIALIZATION DATE:10/21/24 TIME: 0703 PATIENT: CLEO LONG UNIT #: [id number] ROOM/BED: [place] [id number] : 62 AGE: 63 SEX: M ATTEND: Shyla Zepeda MD ADM AUTHOR: Alec Norris MD REPT SERVICE DT/TIME: 10/21/24 0703 * ALL edits or amendments must be made on the electronic/computer document * Objective General VS/I O: 24 hour I O ending at 0700: 10/21 0700 10/20 1900 Intake Total 50 530 Output Total 550 850 Balance -500 -320 Intake, Oral 50 530 Number 1 Bowel Movements Output, Urine 550 850 Vital Signs: Date Time Temp Pulse Resp B/P B/P Pulse O2 O2 Flow FiO2 Mean Ox Delivery Rate 10/21 0323 36.5 62 16 131/66 0.0 96 Room air 10/20 2335 37.1 75 21 122/71 0.0 95 Room air 10/20 2200 73 17 130/79 99 10/20 2034 96 Room air 10/20 2000 93 156/77 107 96 10/20 1842 83 10/20 1835 36.6 81 15 140/63 0.0 98 Room air 10/20 1811 79 26 140/63 90 97 10/20 1729 69 20 167/78 112 97 10/20 1716 65 37 219/87 125 98 10/20 1701 60 25 197/89 128 98 10/20 1659 61 23 197/95 137 99 10/20 1650 63 21 238/102 147 96 10/20 1647 62 18 178/84 121 97 10/20 1647 20.0 62 20 100 Room air 10/20 1547 69 54 98 10/20 1400 60 22 96 10/20 1229 56 18 144/77 105 96 10/20 1229 36.3 56 17 144/77 0.0 96 Room air 10/20 0738 71 19 129/76 98 93 10/20 0738 36.4 70 21 129/72 0.0 92 Room air PATIENT WEIGHT: Weight (lb): 152 Weight (oz): 8.96 Weight (kg): 69.200 Medications: Active Meds + DC'd Last 24 Hrs Hydralazine HCl (APRESOLINE) 10 MG Q6H PRN PRN IV Albuterol Sulfate (ALBUTEROL SULFATE) 2.5 MG RTONCE ONE NEB (DC) Albuterol/Ipratropium (DUONEB) 3 ML RTQ4H PRN PRN NEB Melatonin (Melatonin) 6 MG BEDTIME PO Aspirin (ASPIRIN) 325 MG DAILY PO Nicotine (NICODERM) 14 MG DAILY TRANSDERM Atorvastatin Calcium (LIPITOR) 80 MG BEDTIME PO Carvedilol (COREG) 12.5 MG BID PO Furosemide (LASIX) 20 MG DAILY PO Spironolactone (ALDACTONE) 25 MG DAILY PO Acetaminophen (TYLENOL) 650 MG Q6H PRN PRN PO Morphine Sulfate (morphine SULFATE) 2 MG Q4H PRN PRN IV (DC) Ondansetron HCl (ZOFRAN) 4 MG Q4H PRN PRN IV Physical Exam General appearance: alert, awake Cardiovascular: CV assessment: regular rate and rhythm, BP pulses = bilaterally, normal heart sounds, pedal pulses present, no ectopy, no heave, no murmur Respiratory: clear to auscultation Diagnosis, Assessment Plan Free Text DxA P Notes Free Text DxA P Notes: 1. CAD: Two-vessel, plan for CABG sometime next week. 2. Hyperlipidemia: Continue statin 3. Hypertension: Continue carvedilol cabg today at 1751 RPT #:[id number] END OF REPORT [facility] 2024-10-20 15:05:00 [facility] Cardiothoracic Surgery Prog REPORT#:[id number] REPORT STATUS: Signed REPORT INITIALIZATION DATE:10/20/24 TIME: 1505 PATIENT: CLEO LONG UNIT #: [id number] ROOM/BED: [place] [id number] : 62 AGE: 63 SEX: M ATTEND: Shyla Zepeda MD ADM AUTHOR: Margaret Serrano REPT SERVICE DT/TIME: 10/20/24 1505 * ALL edits or amendments must be made on the electronic/computer document * Subjective Chief complaint: CAD CABG eval Review of Systems Constitutional: Denies: chills, fever, generalized weakness. Skin: Denies: abrasion, contusion, ecchymosis. Allergy/Immun: Denies: allergic reaction, hives, rhinorrhea. Eyes: Denies: redness, itching, diplopia. Respiratory: Denies: BAIG (dyspnea on exertion), non productive cough, pleuritic pain. Cardiovascular: Denies: chest pain, palpitations. GI: Denies: abdominal pain, nausea, vomiting. Heme: Denies: adenopathy, bleeding, bruising. Endocrine: Denies: cold intolerance, heat intolerance, polyphagia. Neuro: Denies: confusion, dizziness, seizure, syncope. All systems rev neg: except as marked Objective General VS/I O Last Documented: Result Date Time Pulse Ox 96 10/20 122 B/P 144/77 10/20 1229 B/P Mean 0.0 10/20 122 O2 Delivery Room air 10/20 1229 Temp 97.3 10/20 1229 Pulse 56 10/20 122 Resp 17 10/20 122 FiO2 21 10/19 2147 24 hour I O ending at 0700: 10/20 0700 10/19 1900 Intake Total 100 Output Total 1825 Balance -1725 Intake, Oral 100 Output, Urine 1825 Patient 69.2 kg Weight Weight Standing scale Measurement Method PATIENT WEIGHT: Weight (lb): 152 Weight (oz): 8.96 Weight (kg): 69.200 Dietitian Nutrition assessment The data set between the solid lines has been imported from the dietitian's assessment. BMI Calculated: 21.9 Nutrition related diagnosis: Nutrition diagnosis details: Nutrition problem: Nutrition etiology: Nutrition signs and symptoms: Nutrition prescription: Dietitian name: Assessment completed: Physical Exam HEENT: anicteric, mucosal membranes moist, pupils reactive to light Neck: full range of motion, non-tender Cardiovascular: normal heart sounds, regular rate rhythm Respiratory: wheezing, symmetric expansion, no distress Abdomen: soft, non-tender Genitourinary: no bladder distention, no flank pain Extremities: dry, moves all Musculoskeletal: full range of motion, painless range of motion 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: alert, oriented X 3 Skin: dry, intact Psychiatry: normal affect, normal mood Current Medications Medications: Active Meds + DC'd Last 24 Hrs Albuterol Sulfate (ALBUTEROL SULFATE) 2.5 MG RTONCE ONE NEB (DC) Albuterol/Ipratropium (DUONEB) 3 ML RTQ4H PRN PRN NEB Melatonin (Melatonin) 6 MG BEDTIME PO Aspirin (ASPIRIN) 325 MG DAILY PO Nicotine (NICODERM) 14 MG DAILY TRANSDERM Atorvastatin Calcium (LIPITOR) 80 MG BEDTIME PO Carvedilol (COREG) 12.5 MG BID PO Furosemide (LASIX) 20 MG DAILY PO Spironolactone (ALDACTONE) 25 MG DAILY PO Acetaminophen (TYLENOL) 650 MG Q6H PRN PRN PO Morphine Sulfate (morphine SULFATE) 2 MG Q4H PRN PRN IV (DC) Ondansetron HCl (ZOFRAN) 4 MG Q4H PRN PRN IV Results Findings/Data: Laboratory Tests 10/20 559 Chemistry Sodium (134 - 147 mEq/L) 141 Potassium (3.4 - 5.0 mEq/L) 3.9 Chloride (100 - 108 mEq/L) 106 Carbon Dioxide (21 - 33 mEq/l) 31 Anion Gap (0 - 20) 8 BUN (7 - 25 mg/dL) 23 Creatinine (0.6 - 1.3 mg/dL) 1.0 Glomerular Filtr Rate (80 - 90) 85.1 Glucose (77 - 141 mg/dL) 126 Calcium (8.0 - 10.5 mg/dL) 10.0 Magnesium (1.6 - 2.6 mg/dL) 2.13 Laboratory Tests 10/20 10/20 0559 0559 Coagulation TEG Max Amplitude (51 - 71 MM) 30.0 L TEG Max Ampl Kaol w Hep (53 - 68 mm) 68.7 H TEG Factor Func Interp (2 - 19 mm) 23.5 H Plt % Inhibition (AA) (0 - 11 %) 85.6 H Plt Map % Inh ADP w/Hep (0 - 17 %) 20.6 H Plt P2Y12 React Units (182 - 335 PRU) 109 L Plt Agg - ADP (83 - 100 %) 79.4 L Plt Agg - Arachidonic (89 - 100 %) 14.4 L Laboratory Tests 10/20 0559 Hematology WBC (4.5 - 11.0 x10 3/uL) 8.6 RBC (4.00 - 5.60 x10 6/uL) 4.58 Hgb (12.5 - 16.9 g/dL) 12.9 Hct (37.5 - 50.7 %) 40.8 MCV (81.0 - 99.0 fL) 89.1 MCH (27.0 - 33.0 pg) 28.2 MCHC (33.0 - 37.0 g/dL) 31.6 L RDW (11.5 - 14.5 %) 13.1 Plt Count (150 - 400 x10 3/uL) 423 H MPV (7.0 - 9.0 fL) 8.6 Neut % (Auto) (56.0 - 77.0 %) 60.7 Lymph % (Auto) (14.0 - 32.0 %) 26.4 [place] % (Auto) (4.8 - 9.0 %) 9.0 Eos % (Auto) (0.3 - 3.7 %) 3.1 Baso % (Auto) (0.0 - 2.0 %) 0.6 Neut # (Auto) (2.0 - 7.6 x10 3/uL) 5.24 Lymph # (Auto) (1.0 - 3.8 x10 3/uL) 2.28 [place] # (Auto) (0.1 - 0.8 x10 3/uL) 0.78 Eos # (Auto) (0.0 - 0.2 x10 3/uL) 0.27 H Baso # (Auto) (0.0 - 0.2 x10 3/uL) 0.05 Abs Immat Gran (auto) (0.00 - 0.03 x10 3/uL) 0.02 Immature Gran % (0.0 - 2.0 %) 0.2 Nucleated RBC % (0 - 0 %) 0.0 Nucleated RBCs # (Man) (0.0 - 0.1 x10 3/uL) 0.00 Results: labs reviewed, vital signs stable, ladonna personally rev'd, current med profile rev'd Quality: Trauma Gen Surg Current Medications Current medication review: Current Medications Sig/Nia Start time Last Medication Dose Route Stop Time Status Admin Aspirin 81 MG BEDTIME 10/15 2100 AC PO 01/13 2059 Acetaminophen 650 MG Q6H PRN PRN 10/15 1030 AC PO 01/13 1029 Clopidogrel Bisulfate 75 MG DAILY 10/15 1030 AC PO 01/13 1029 Morphine Sulfate 2 MG Q4H PRN PRN 10/15 1030 AC IV 10/20 1029 Ondansetron HCl 4 MG Q4H PRN PRN 10/15 1030 AC IV 01/13 1029 Albuterol/Ipratropium 3 ML X1ED STA 10/14 2127 DC 10/14 NEB 10/14 Aspirin 324 MG X1ED STA 10/14 2105 DC PO 10/14 2106 Home Medications: FUROSEMIDE (LASIX) 20 MG PO DAILY LOSARTAN 100 MG PO DAILY SPIRONOLACTONE (ALDACTONE) 25 MG PO DAILY ASPIRIN 81 MG PO DAILY CARVEDILOL (carvediloL) 12.5 MG PO BID CLOPIDOGREL (PLAVIX) 75 MG PO DAILY ATORVASTATIN (LIPITOR) 80 MG PO BEDTIME I attest that the foregoing medication list in the medical record is true, accurate, and complete to the best of my knowledge. Diagnosis, Assessment Plan Hospital course to date: This is a 63-year-old male with a past medical history of HTN, HLD, CHF and CAD with s/p 7 stents who presented with complaints of chest pain. The pain did not radiate. Labs include troponin of 71, and all other labs unremarkable. Patient was transferred to [facility] from [facility] due to NSTEMI. He denies recent fever, cough, shortness of breath, or edema. 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 Left circumflex large dominant vessel first obtuse marginal is patent has stents that looks fine another stent in the mid circumflex beyond the obtuse marginal that has 80 to 90% focal severe restenosis otherwise circumflex distally has diffuse disease distal disease. RCA small nondominant vessel. CV surgery consulted for evaluation of multi-vessel coronary artery disease. Dr. Ko has seen and examined the patient. Thank you for this kind consultation. Assessment/Plan: 1. Multi-vessel coronary artery disease s/p stents 2. Hypertension 3. Hyperlipidemia Patient not able to answer questions due to sedation effects following [place] CABG workup initiated CT chest w/o contrast Vein mapping and marking Carotid US Urinalysis MRSA/MSSA Hemoglobin A1C Patient seen and examined by Dr. Ko. All questions answered. 10/17/24 Patient alert, awake, oriented, denies any chest pain Breathing comfortable on room air, encourage incentive spirometer teaching Labs and imaging reviewed Last dose of Plavix on 10/16, check platelet response to Plavix Urinalysis negative Hemoglobin A1c 5.[address] chest and MRSA/MSSA Carotid duplex shows 50 to 69% right internal carotid artery stenosis Vein mapping reviewed, veins not visualized on left knee and calf area Echocardiogram shows EF 35 to 39%, moderate to severe diffuse hypokinesis, grade 1 diastolic dysfunction, aortic valve thickening consistent with sclerosis, mild MR, small to moderate pericardial effusion Transfer to N 1 Further recommendations to follow Patient seen and examined by Dr. Ko, discussed plan of care with patient, questions were answered 10/18/24 Patient alert, awake, oriented, denies any chest pain Breathing comfortable on room air, encourage incentive spirometer teaching Labs and imaging reviewed, patient had positive drug screen amphetamines and cannabis, educated patient on drug cessation Last dose of Plavix on 10/16, check platelet response to Plavix-87 Urinalysis negative Hemoglobin A1c 5.[address] chest and MRSA/MSSA- Carotid duplex shows 50 to 69% right internal carotid artery stenosis Vein mapping reviewed, veins not visualized on left knee and calf area Echocardiogram shows EF 35 to 39%, moderate to severe diffuse hypokinesis, grade 1 diastolic dysfunction, aortic valve thickening consistent with sclerosis, mild MR, small to moderate pericardial effusion Plan for surgery in upcoming week once platelet response to Plavix improved Patient seen and examined by Dr. Ko, discussed plan of care with patient, questions were answered. 10/19/24 Patient alert, awake, oriented, denies any chest pain Breathing comfortable on room air, encourage incentive spirometer teaching Labs and imaging reviewed, patient had positive drug screen amphetamines and cannabis, educated patient on drug cessation Last dose of Plavix on 10/16, check platelet response to Plavix-87 - Repeat Platelet response and TEG tomorrow morning Urinalysis negative Hemoglobin A1c 5.3 CT chest completed, showing Cardiomegaly with a 2 cm thick pericardial effusion MRSA/MSSA negative Carotid duplex shows 50 to 69% right internal carotid artery stenosis Vein mapping reviewed, veins not visualized on left knee and calf area Echocardiogram shows EF 35 to 39%, moderate to severe diffuse hypokinesis, grade 1 diastolic dysfunction, aortic valve thickening consistent with sclerosis, mild MR, small to moderate pericardial effusion Plan for surgery later in the week once platelet response to Plavix has improved Patient seen and examined by Dr. Ko, discussed plan of care with patient, questions were answered. 10/20/24 Patient alert, awake, oriented, denies any chest pain Breathing comfortable on room air, encourage incentive spirometer teaching Labs and imaging reviewed, patient had positive drug screen amphetamines and cannabis, educated patient on drug cessation Last dose of Plavix on 10/16, check platelet response to Plavix-87 -Platelet response today is 109, TEG completed ADP % inhibition 20.6, ADP 59.4 Urinalysis negative Hemoglobin A1c 5.3 CT chest completed, showing Cardiomegaly with a 2 cm thick pericardial effusion MRSA/MSSA negative Carotid duplex shows 50 to 69% right internal carotid artery stenosis Vein mapping reviewed, veins not visualized on left knee and calf area Echocardiogram shows EF 35 to 39%, moderate to severe diffuse hypokinesis, grade 1 diastolic dysfunction, aortic valve thickening consistent with sclerosis, mild MR, small to moderate pericardial effusion PFTs to be completed tomorrow Surgery will be scheduled later this week. Patient seen and examined by Dr. Ko, discussed plan of care with patient, questions were answered. Consultants: cardiology Code status: full code Plan discussed with: patient, collaborating MD, nurse, interdisc care team at 1507 at 2227 [facility] #:[id number] END OF REPORT [facility] 2024-10-20 10:33:00 [facility] ([facility]) Hospitalist Progress Note REPORT#:[id number] REPORT STATUS: Signed REPORT INITIALIZATION DATE:10/20/24 TIME: 1033 PATIENT: CLEO LONG UNIT #: [id number] ROOM/BED: [place] [address] : 62 AGE: 63 SEX: M ATTEND: Shyla Zepeda MD ADM AUTHOR: Ann Marie Llanos APRN REPT SERVICE DT/TIME: 10/20/24 1033 * ALL edits or amendments must be made on the electronic/computer document * Subjective Chief complaint: resting in bed, no CP or SOB HPI: 63 years old male with PMH of HTN, CHF and CAD with 7 stents complaint of cp . pain did not radiate . he also found elevate troponin . he was transferred to the hospital from [facility] due to NSTEMI . no fever no cough no sob no edema no nausea no vomiting no rosalind pain no dysuria no dizziness no syncope no neurology deficit . Review of Systems Respiratory: Denies: SOB. Cardiovascular: Denies: chest pain. All systems rev neg: except as noted Objective General VS/I O: Vital Signs: Date Time Temp Pulse Resp B/P B/P Pulse O2 O2 Flow FiO2 Mean Ox Delivery Rate 10/20 0738 36.4 70 21 129/72 0.0 92 Room air 10/20 0414 36.3 64 12 111/57 74.8 93 Room air 10/19 2351 36.5 64 14 155/80 104.9 93 Room air 10/19 2147 95 Room air 21 10/19 2131 65 147/73 103 97 10/19 1854 36.9 66 14 152/81 104.9 95 Room air 10/19 1801 67 27 153/79 109 98 10/19 1700 62 22 154/73 105 97 10/19 1647 36.7 62 19 145/70 0.0 95 10/19 1601 66 22 148/70 100 10/19 1528 36.5 56 22 152/72 98 97 10/19 1401 62 28 131/100 113 96 10/19 1300 56 23 178/82 118 98 10/19 1200 56 24 164/85 117 10/19 1100 57 22 134/79 100 95 10/19 1058 60 20 134/76 98 93 24 hour I O ending at 0700: 10/20 0700 10/19 1900 Intake Total 100 Output Total 1825 Balance -1725 Intake, Oral 100 Output, Urine 1825 Patient 69.2 kg Weight Weight Standing scale Measurement Method PATIENT WEIGHT: Weight (lb): 152 Weight (oz): 8.96 Weight (kg): 69.200 Medications: Active Meds + DC'd Last 24 Hrs Albuterol Sulfate (ALBUTEROL SULFATE) 2.5 MG RTONCE ONE NEB (DC) Albuterol/Ipratropium (DUONEB) 3 ML RTQ4H PRN PRN NEB Melatonin (Melatonin) 6 MG BEDTIME PO Aspirin (ASPIRIN) 325 MG DAILY PO Nicotine (NICODERM) 14 MG DAILY TRANSDERM Atorvastatin Calcium (LIPITOR) 80 MG BEDTIME PO Carvedilol (COREG) 12.5 MG BID PO Furosemide (LASIX) 20 MG DAILY PO Spironolactone (ALDACTONE) 25 MG DAILY PO Acetaminophen (TYLENOL) 650 MG Q6H PRN PRN PO Morphine Sulfate (morphine SULFATE) 2 MG Q4H PRN PRN IV (DC) Ondansetron HCl (ZOFRAN) 4 MG Q4H PRN PRN IV Physical Exam General appearance: alert, awake, oriented, no acute distress, no respiratory distress Head/Eyes: atraumatic, normal conjunctiva/sclera, normal eyelids/periorb. Neck: full range of motion, non-tender, normal thyroid Cardiovascular: normal heart sounds, regular rate rhythm Respiratory: aerating well, clear to auscultation Abdomen: non-tender, normal bowel sounds, soft, no distention Extremities: moves all, no calf tenderness, no edema 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: alert, oriented X 3, CNII-XII intact, normal speech, no motor deficits, no sensory deficits Skin: dry, intact Psychiatry: normal affect, normal judgment/insight Results Findings/Data: Laboratory Tests 10/20 559 Chemistry Sodium (134 - 147 mEq/L) 141 Potassium (3.4 - 5.0 mEq/L) 3.9 Chloride (100 - 108 mEq/L) 106 Carbon Dioxide (21 - 33 mEq/l) 31 Anion Gap (0 - 20) 8 BUN (7 - 25 mg/dL) 23 Creatinine (0.6 - 1.3 mg/dL) 1.0 Glomerular Filtr Rate (80 - 90) 85.1 Glucose (77 - 141 mg/dL) 126 Calcium (8.0 - 10.5 mg/dL) 10.0 Magnesium (1.6 - 2.6 mg/dL) 2.13 Laboratory Tests 10/20 10/20 0559 0559 Coagulation TEG Max Amplitude (51 - 71 MM) 30.0 L TEG Max Ampl Kaol w Hep (53 - 68 mm) 68.7 H TEG Factor Func Interp (2 - 19 mm) 23.5 H Plt % Inhibition (AA) (0 - 11 %) 85.6 H Plt Map % Inh ADP w/Hep (0 - 17 %) 20.6 H Plt P2Y12 React Units (182 - 335 PRU) 109 L Plt Agg - ADP (83 - 100 %) 79.4 L Plt Agg - Arachidonic (89 - 100 %) 14.4 L Laboratory Tests 10/20 0559 Hematology WBC (4.5 - 11.0 x10 3/uL) 8.6 RBC (4.00 - 5.60 x10 6/uL) 4.58 Hgb (12.5 - 16.9 g/dL) 12.9 Hct (37.5 - 50.7 %) 40.8 MCV (81.0 - 99.0 fL) 89.1 MCH (27.0 - 33.0 pg) 28.2 MCHC (33.0 - 37.0 g/dL) 31.6 L RDW (11.5 - 14.5 %) 13.1 Plt Count (150 - 400 x10 3/uL) 423 H MPV (7.0 - 9.0 fL) 8.6 Neut % (Auto) (56.0 - 77.0 %) 60.7 Lymph % (Auto) (14.0 - 32.0 %) 26.4 [place] % (Auto) (4.8 - 9.0 %) 9.0 Eos % (Auto) (0.3 - 3.7 %) 3.1 Baso % (Auto) (0.0 - 2.0 %) 0.6 Neut # (Auto) (2.0 - 7.6 x10 3/uL) 5.24 Lymph # (Auto) (1.0 - 3.8 x10 3/uL) 2.28 [place] # (Auto) (0.1 - 0.8 x10 3/uL) 0.78 Eos # (Auto) (0.0 - 0.2 x10 3/uL) 0.27 H Baso # (Auto) (0.0 - 0.2 x10 3/uL) 0.05 Abs Immat Gran (auto) (0.00 - 0.03 x10 3/uL) 0.02 Immature Gran % (0.0 - 2.0 %) 0.2 Nucleated RBC % (0 - 0 %) 0.0 Nucleated RBCs # (Man) (0.0 - 0.1 x10 3/uL) 0.00 Diagnosis, Assessment Plan Consultants: cardiology Free Text DxA P Notes Free text DxA P notes: 63 YO male with CAD with stent Substance use HTN heart disease with HF Chronic systolic HF EF 35-39% Right carotid stenosis 50-69% 10/15 tele cardiology consult continue ASA/plavix /lipitor CHF -- continue lasix and aldactone -- cozaar HTN- continue coreg 10/16- no cp no sob -- cath today -- post cath -- CABG evaluation 10/17 CABG next week, medically stable to proceed 10/18 CABG next week, Chest CT scan showed ? Pericardal effusion. stable to proceed 10/19 Vitals and labs stable today. No acute complaints. CABG later then week per surgeon. 10/20 labs and vitals remains stable. CABG later this week when surgery schedules. at 1156 at 1324 RPT #:[id number] END OF REPORT [facility] 2024-10-20 06:19:00 [facility] Cardiology Progress Note REPORT#:[id number] REPORT STATUS: Signed REPORT INITIALIZATION DATE:10/20/24 TIME: 618 PATIENT: CLEO LONG UNIT #: [id number] ROOM/BED: [place] [id number] : [birth year] AGE: 63 SEX: M ATTEND: Shyla Zepeda MD ADM AUTHOR: Alec Norris MD REPT SERVICE DT/TIME: 10/20/24 0619 * ALL edits or amendments must be made on the electronic/computer document * Objective General VS/I O: 24 hour I O ending at 0700: 10/20 0700 10/19 1900 Intake Total Output Total 925 Balance -925 Output, Urine 925 Vital Signs: Date Time Temp Pulse Resp B/P B/P Pulse O2 O2 Flow FiO2 Mean Ox Delivery Rate 12/10 0414 36.3 64 12 111/57 74.8 93 Room air 10/19 2351 36.5 64 14 155/80 104.9 93 Room air 10/19 2147 95 Room air 21 10/19 2131 65 147/73 103 97 10/19 1854 36.9 66 14 152/81 104.9 95 Room air 10/19 1801 67 27 153/79 109 98 10/19 1700 62 22 154/73 105 97 10/19 1647 36.7 62 19 145/70 0.0 95 10/19 1601 66 22 148/70 100 10/19 1528 36.5 56 22 152/72 98 97 10/19 1401 62 28 131/100 113 96 10/19 1300 56 23 178/82 118 98 10/19 1200 56 24 164/85 117 10/19 1100 57 22 134/79 100 95 10/19 1058 60 20 134/76 98 93 10/19 0800 55 20 147/75 105 96 PATIENT WEIGHT: Weight (lb): 152 Weight (oz): 12.49 Weight (kg): 69.300 Medications: Active Meds + DC'd Last 24 Hrs Albuterol/Ipratropium (DUONEB) 3 ML RTQ4H PRN PRN NEB Melatonin (Melatonin) 6 MG BEDTIME PO Aspirin (ASPIRIN) 325 MG DAILY PO Nicotine (NICODERM) 14 MG DAILY TRANSDERM Atorvastatin Calcium (LIPITOR) 80 MG BEDTIME PO Carvedilol (COREG) 12.5 MG BID PO Furosemide (LASIX) 20 MG DAILY PO Spironolactone (ALDACTONE) 25 MG DAILY PO Acetaminophen (TYLENOL) 650 MG Q6H PRN PRN PO Morphine Sulfate (morphine SULFATE) 2 MG Q4H PRN PRN IV Ondansetron HCl (ZOFRAN) 4 MG Q4H PRN PRN IV Physical Exam General appearance: alert, awake Cardiovascular: CV assessment: regular rate and rhythm, BP pulses = bilaterally, normal heart sounds, pedal pulses present, no ectopy, no heave, no murmur Respiratory: clear to auscultation Diagnosis, Assessment Plan Free Text DxA P Notes Free Text DxA P Notes: 1. CAD: Two-vessel, plan for CABG sometime next week. 2. Hyperlipidemia: Continue statin 3. Hypertension: Continue carvedilol plan cabg at 1751 RPT #:[id number] END OF REPORT [facility] 2024-10-19 10:11:00 [facility] ([facility]) Hospitalist Progress Note REPORT#:[id number] REPORT STATUS: Signed REPORT INITIALIZATION DATE:10/19/24 TIME: 1011 PATIENT: CLEO LONG UNIT #: [id number] ROOM/BED: [place] [address] : 62 AGE: 63 SEX: M ATTEND: Shyla Zepeda MD ADM AUTHOR: Ann Marie Llanos APRN REPT SERVICE DT/TIME: 10/19/24 1011 * ALL edits or amendments must be made on the electronic/computer document * Subjective Chief complaint: resting in bed, no CP or SOB family at bedside HPI: 63 years old male with PMH of HTN, CHF and CAD with 7 stents complaint of cp . pain did not radiate . he also found elevate troponin . he was transferred to the hospital from [facility] due to NSTEMI . no fever no cough no sob no edema no nausea no vomiting no rosalind pain no dysuria no dizziness no syncope no neurology deficit . Review of Systems All systems rev neg: except as noted Objective General VS/I O: Vital Signs: Date Time Temp Pulse Resp B/P B/P Pulse O2 O2 Flow FiO2 Mean Ox Delivery Rate 10/19 0407 36.5 68 18 150/83 0.0 95 Room air 10/19 0200 65 19 96 10/19 0049 64 99/65 77 95 10/19 0000 62 22 95 10/18 2332 37.0 63 18 111/64 79.9 96 Nasal cannula 10/18 1906 37.2 70 20 113/56 0.0 95 Room air 10/18 1825 66 20 94 10/18 1739 36.6 61 20 146/79 0.0 92 Room air 10/18 1736 61 18 146/79 106 92 08 1700 63 23 94 10/18 1600 65 19 95 10/18 1241 35.7 63 20 149/73 0.0 91 Room air 10/18 1238 63 32 149/73 105 91 08 1200 59 19 91 12/08 1100 59 12 94 24 hour I O ending at 0700: 10/19 0700 10/18 1900 Intake Total Output Total Balance Patient 69.3 kg Weight PATIENT WEIGHT: Weight (lb): 152 Weight (oz): 12.49 Weight (kg): 69.300 Medications: Active Meds + DC'd Last 24 Hrs Melatonin (Melatonin) 6 MG BEDTIME PO Aspirin (ASPIRIN) 325 MG DAILY PO Nicotine (NICODERM) 14 MG DAILY TRANSDERM Atorvastatin Calcium (LIPITOR) 80 MG BEDTIME PO Carvedilol (COREG) 12.5 MG BID PO Furosemide (LASIX) 20 MG DAILY PO Spironolactone (ALDACTONE) 25 MG DAILY PO Acetaminophen (TYLENOL) 650 MG Q6H PRN PRN PO Morphine Sulfate (morphine SULFATE) 2 MG Q4H PRN PRN IV Ondansetron HCl (ZOFRAN) 4 MG Q4H PRN PRN IV Physical Exam General appearance: alert, awake, oriented, no acute distress, no respiratory distress Head/Eyes: atraumatic, normal conjunctiva/sclera, normal eyelids/periorb. Neck: full range of motion, non-tender, normal thyroid Cardiovascular: normal heart sounds, regular rate rhythm Respiratory: aerating well, clear to auscultation Abdomen: non-tender, normal bowel sounds, soft, no distention Extremities: moves all, no calf tenderness, no edema 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: alert, oriented X 3, CNII-XII intact, normal speech, no motor deficits, no sensory deficits Skin: dry, intact Psychiatry: normal affect, normal judgment/insight Results Findings/Data: Laboratory Tests 10/19 540 Chemistry Sodium (134 - 147 mEq/L) 141 Potassium (3.4 - 5.0 mEq/L) 3.9 Chloride (100 - 108 mEq/L) 108 Carbon Dioxide (21 - 33 mEq/l) 28 Anion Gap (0 - 20) 9 BUN (7 - 25 mg/dL) 23 Creatinine (0.6 - 1.3 mg/dL) 1.0 Glomerular Filtr Rate (80 - 90) 85.1 Glucose (77 - 141 mg/dL) 96 Calcium (8.0 - 10.5 mg/dL) 9.6 Magnesium (1.6 - 2.6 mg/dL) 1.97 Laboratory Tests 10/19 540 Hematology WBC (4.5 - 11.0 x10 3/uL) 8.3 RBC (4.00 - 5.60 x10 6/uL) 4.46 Hgb (12.5 - 16.9 g/dL) 12.5 Hct (37.5 - 50.7 %) 38.6 MCV (81.0 - 99.0 fL) 86.5 MCH (27.0 - 33.0 pg) 28.0 MCHC (33.0 - 37.0 g/dL) 32.4 L RDW (11.5 - 14.5 %) 13.4 Plt Count (150 - 400 x10 3/uL) 376 MPV (7.0 - 9.0 fL) 8.4 Neut % (Auto) (56.0 - 77.0 %) 60.4 Lymph % (Auto) (14.0 - 32.0 %) 25.3 [place] % (Auto) (4.8 - 9.0 %) 10.1 H Eos % (Auto) (0.3 - 3.7 %) 3.5 Baso % (Auto) (0.0 - 2.0 %) 0.5 Neut # (Auto) (2.0 - 7.6 x10 3/uL) 5.01 Lymph # (Auto) (1.0 - 3.8 x10 3/uL) 2.10 [place] # (Auto) (0.1 - 0.8 x10 3/uL) 0.84 H Eos # (Auto) (0.0 - 0.2 x10 3/uL) 0.29 H Baso # (Auto) (0.0 - 0.2 x10 3/uL) 0.04 Abs Immat Gran (auto) (0.00 - 0.03 x10 3/uL) 0.02 Immature Gran % (0.0 - 2.0 %) 0.2 Nucleated RBC % (0 - 0 %) 0.0 Nucleated RBCs # (Man) (0.0 - 0.1 x10 3/uL) 0.00 Diagnosis, Assessment Plan Consultants: cardiology Free Text DxA P Notes Free text DxA P notes: 63 YO male with CAD with stent Substance use HTN heart disease with HF Chronic systolic HF EF 35-39% Right carotid stenosis 50-69% 10/15 tele cardiology consult continue ASA/plavix /lipitor CHF -- continue lasix and aldactone -- cozaar HTN- continue coreg 10/16- no cp no sob -- cath today -- post cath -- CABG evaluation 10/17 CABG next week, medically stable to proceed 10/18 CABG next week, Chest CT scan showed ? Pericardal effusion. stable to proceed 10/19 Vitals and labs stable today. No acute complaints. CABG later then week per surgeon. at 1345 at 1602 RPT #:[id number] END OF REPORT [facility] 2024-10-19 08:35:00 [facility] Cardiothoracic Surgery Prog REPORT#:[id number] REPORT STATUS: Signed REPORT INITIALIZATION DATE:10/19/24 TIME: 834 PATIENT: CLEO LONG UNIT #: [id number] ROOM/BED: [place] [address] : 61 AGE: 63 SEX: M ATTEND: Shyla Zepeda MD ADM AUTHOR: Margaret Serrano APRN-FAMILY EDUCATOR REPT SERVICE DT/TIME: 10/19/24 0835 * ALL edits or amendments must be made on the electronic/computer document * Subjective Chief complaint: CAD CABG eval Review of Systems Constitutional: Denies: chills, fever, generalized weakness. Skin: Denies: abrasion, contusion, ecchymosis. Allergy/Immun: Denies: allergic reaction, hives, rhinorrhea. Eyes: Denies: redness, itching, diplopia. Respiratory: Denies: BAIG (dyspnea on exertion), non productive cough, pleuritic pain. Cardiovascular: Denies: chest pain, palpitations. GI: Denies: abdominal pain, nausea, vomiting. Heme: Denies: adenopathy, bleeding, bruising. Endocrine: Denies: cold intolerance, heat intolerance, polyphagia. Neuro: Denies: confusion, dizziness, seizure, syncope. All systems rev neg: except as marked Objective General VS/I O Last Documented: Result Date Time Pulse Ox 95 10/19 407 B/P 150/83 10/19 407 B/P Mean 0.0 10/19 407 O2 Delivery Room air 10/19 407 Temp 97.7 10/19 407 Pulse 68 10/19 407 Resp 18 10/19 407 24 hour I O ending at 0700: 10/19 0700 10/18 1900 Intake Total Output Total Balance Patient 69.3 kg Weight PATIENT WEIGHT: Weight (lb): 152 Weight (oz): 12.49 Weight (kg): 69.300 Dietitian Nutrition assessment The data set between the solid lines has been imported from the dietitian's assessment. BMI Calculated: 22.7 Nutrition related diagnosis: Nutrition diagnosis details: Nutrition problem: Nutrition etiology: Nutrition signs and symptoms: Nutrition prescription: Dietitian name: Assessment completed: Physical Exam HEENT: anicteric, mucosal membranes moist, pupils reactive to light Neck: full range of motion, non-tender Cardiovascular: normal heart sounds, regular rate rhythm Respiratory: aerating well, symmetric expansion, no distress Abdomen: soft, non-tender Genitourinary: no bladder distention, no flank pain Extremities: dry, moves all Musculoskeletal: full range of motion, painless range of motion 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: alert, oriented X 3 Skin: dry, intact Psychiatry: normal affect, normal mood Current Medications Medications: Active Meds + DC'd Last 24 Hrs Melatonin (Melatonin) 6 MG BEDTIME PO Aspirin (ASPIRIN) 325 MG DAILY PO Nicotine (NICODERM) 14 MG DAILY TRANSDERM Atorvastatin Calcium (LIPITOR) 80 MG BEDTIME PO Carvedilol (COREG) 12.5 MG BID PO Furosemide (LASIX) 20 MG DAILY PO Spironolactone (ALDACTONE) 25 MG DAILY PO Acetaminophen (TYLENOL) 650 MG Q6H PRN PRN PO Morphine Sulfate (morphine SULFATE) 2 MG Q4H PRN PRN IV Ondansetron HCl (ZOFRAN) 4 MG Q4H PRN PRN IV Results Findings/Data: Laboratory Tests 10/19 540 Chemistry Sodium (134 - 147 mEq/L) 141 Potassium (3.4 - 5.0 mEq/L) 3.9 Chloride (100 - 108 mEq/L) 108 Carbon Dioxide (21 - 33 mEq/l) 28 Anion Gap (0 - 20) 9 BUN (7 - 25 mg/dL) 23 Creatinine (0.6 - 1.3 mg/dL) 1.0 Glomerular Filtr Rate (80 - 90) 85.1 Glucose (77 - 141 mg/dL) 96 Calcium (8.0 - 10.5 mg/dL) 9.6 Magnesium (1.6 - 2.6 mg/dL) 1.97 Laboratory Tests 10/19 540 Hematology WBC (4.5 - 11.0 x10 3/uL) 8.3 RBC (4.00 - 5.60 x10 6/uL) 4.46 Hgb (12.5 - 16.9 g/dL) 12.5 Hct (37.5 - 50.7 %) 38.6 MCV (81.0 - 99.0 fL) 86.5 MCH (27.0 - 33.0 pg) 28.0 MCHC (33.0 - 37.0 g/dL) 32.4 L RDW (11.5 - 14.5 %) 13.4 Plt Count (150 - 400 x10 3/uL) 376 MPV (7.0 - 9.0 fL) 8.4 Neut % (Auto) (56.0 - 77.0 %) 60.4 Lymph % (Auto) (14.0 - 32.0 %) 25.3 [place] % (Auto) (4.8 - 9.0 %) 10.1 H Eos % (Auto) (0.3 - 3.7 %) 3.5 Baso % (Auto) (0.0 - 2.0 %) 0.5 Neut # (Auto) (2.0 - 7.6 x10 3/uL) 5.01 Lymph # (Auto) (1.0 - 3.8 x10 3/uL) 2.10 [place] # (Auto) (0.1 - 0.8 x10 3/uL) 0.84 H Eos # (Auto) (0.0 - 0.2 x10 3/uL) 0.29 H Baso # (Auto) (0.0 - 0.2 x10 3/uL) 0.04 Abs Immat Gran (auto) (0.00 - 0.03 x10 3/uL) 0.02 Immature Gran % (0.0 - 2.0 %) 0.2 Nucleated RBC % (0 - 0 %) 0.0 Nucleated RBCs # (Man) (0.0 - 0.1 x10 3/uL) 0.00 Radiology data: Recent Impressions: CAT SCAN - CT CHEST W/O CONTRAST 10/18 932 Report Impression - Status: SIGNED Entered: 10/18/2024 0943 IMPRESSION: 1. Patchy linear left basilar subsegmental atelectasis and trace left pleural effusion noted. 2. Cardiomegaly with a 2 cm thick pericardial effusion. Recommend correlation with echocardiography. Impression By: [email or web address] - Neal Quinonez M.D. Results: labs reviewed, vital signs stable, ladonna personally rev'd, current med profile rev'd Quality: Trauma Gen Surg Current Medications Current medication review: Current Medications Sig/Nia Start time Last Medication Dose Route Stop Time Status Admin Aspirin 81 MG BEDTIME 10/15 2100 AC PO 01/13 2059 Acetaminophen 650 MG Q6H PRN PRN 10/15 1030 AC PO 01/13 1029 Clopidogrel Bisulfate 75 MG DAILY 10/15 1030 AC PO 01/13 1029 Morphine Sulfate 2 MG Q4H PRN PRN 10/15 1030 AC IV 10/20 1029 Ondansetron HCl 4 MG Q4H PRN PRN 10/15 1030 AC IV 01/13 1029 Albuterol/Ipratropium 3 ML X1ED STA 10/14 2127 DC 10/14 NEB 10/14 2128 214 Aspirin 324 MG X1ED STA 10/14 2105 DC PO 10/14 2106 Home Medications: FUROSEMIDE (LASIX) 20 MG PO DAILY LOSARTAN 100 MG PO DAILY SPIRONOLACTONE (ALDACTONE) 25 MG PO DAILY ASPIRIN 81 MG PO DAILY CARVEDILOL (carvediloL) 12.5 MG PO BID CLOPIDOGREL (PLAVIX) 75 MG PO DAILY ATORVASTATIN (LIPITOR) 80 MG PO BEDTIME I attest that the foregoing medication list in the medical record is true, accurate, and complete to the best of my knowledge. Diagnosis, Assessment Plan Hospital course to date: This is a 63-year-old male with a past medical history of HTN, HLD, CHF and CAD with s/p 7 stents who presented with complaints of chest pain. The pain did not radiate. Labs include troponin of 71, and all other labs unremarkable. Patient was transferred to [facility] from [facility] due to NSTEMI. He denies recent fever, cough, shortness of breath, or edema. 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 Left circumflex large dominant vessel first obtuse marginal is patent has stents that looks fine another stent in the mid circumflex beyond the obtuse marginal that has 80 to 90% focal severe restenosis otherwise circumflex distally has diffuse disease distal disease. RCA small nondominant vessel. CV surgery consulted for evaluation of multi-vessel coronary artery disease. Dr. Ko has seen and examined the patient. Thank you for this kind consultation. Assessment/Plan: 1. Multi-vessel coronary artery disease s/p stents 2. Hypertension 3. Hyperlipidemia Patient not able to answer questions due to sedation effects following [place] CABG workup initiated CT chest w/o contrast Vein mapping and marking Carotid US Urinalysis MRSA/MSSA Hemoglobin A1C Patient seen and examined by Dr. Ko. All questions answered. 10/17/24 Patient alert, awake, oriented, denies any chest pain Breathing comfortable on room air, encourage incentive spirometer teaching Labs and imaging reviewed Last dose of Plavix on 10/16, check platelet response to Plavix Urinalysis negative Hemoglobin A1c 5.[address] chest and MRSA/MSSA Carotid duplex shows 50 to 69% right internal carotid artery stenosis Vein mapping reviewed, veins not visualized on left knee and calf area Echocardiogram shows EF 35 to 39%, moderate to severe diffuse hypokinesis, grade 1 diastolic dysfunction, aortic valve thickening consistent with sclerosis, mild MR, small to moderate pericardial effusion Transfer to CVN 1 Further recommendations to follow Patient seen and examined by Dr. Ko, discussed plan of care with patient, questions were answered 10/18/24 Patient alert, awake, oriented, denies any chest pain Breathing comfortable on room air, encourage incentive spirometer teaching Labs and imaging reviewed, patient had positive drug screen amphetamines and cannabis, educated patient on drug cessation Last dose of Plavix on 10/16, check platelet response to Plavix-87 Urinalysis negative Hemoglobin A1c 5.[address] chest and MRSA/MSSA- Carotid duplex shows 50 to 69% right internal carotid artery stenosis Vein mapping reviewed, veins not visualized on left knee and calf area Echocardiogram shows EF 35 to 39%, moderate to severe diffuse hypokinesis, grade 1 diastolic dysfunction, aortic valve thickening consistent with sclerosis, mild MR, small to moderate pericardial effusion Plan for surgery in upcoming week once platelet response to Plavix improved Patient seen and examined by Dr. Ko, discussed plan of care with patient, questions were answered. 10/19/24 Patient alert, awake, oriented, denies any chest pain Breathing comfortable on room air, encourage incentive spirometer teaching Labs and imaging reviewed, patient had positive drug screen amphetamines and cannabis, educated patient on drug cessation Last dose of Plavix on 10/16, check platelet response to Plavix-87 - Repeat Platelet response and TEG tomorrow morning Urinalysis negative Hemoglobin A1c 5.3 CT chest completed, showing Cardiomegaly with a 2 cm thick pericardial effusion MRSA/MSSA negative Carotid duplex shows 50 to 69% right internal carotid artery stenosis Vein mapping reviewed, veins not visualized on left knee and calf area Echocardiogram shows EF 35 to 39%, moderate to severe diffuse hypokinesis, grade 1 diastolic dysfunction, aortic valve thickening consistent with sclerosis, mild MR, small to moderate pericardial effusion Plan for surgery later in the week once platelet response to Plavix has improved Patient seen and examined by Dr. Ko, discussed plan of care with patient, questions were answered. Consultants: cardiology Code status: full code Plan discussed with: patient, collaborating MD, nurse, interdisc care team at 0841 at 0628 RPT #:[id number] END OF REPORT [facility] 2024-10-19 07:34:00 [facility] ([facility]) Cardiology Progress Note REPORT#:[id number] REPORT STATUS: Signed REPORT INITIALIZATION DATE:10/19/24 TIME: 733 PATIENT: CLEO LONG UNIT #: [id number] ROOM/BED: [place] [address] : 61 AGE: 63 SEX: M ATTEND: Shyla Zepeda MD ADM AUTHOR: Alec Norris MD REPT SERVICE DT/TIME: 10/19/24733 * ALL edits or amendments must be made on the electronic/computer document * Objective General VS/I O: 24 hour I O ending at 0700: 10/22 0700 10/21 1900 Intake Total 2086.00 3191.70 Output Total 1485 1365 Balance 601.00 1826.70 Intake, Fresh 327 Frozen Plasma Intake, IV 1256.00 2376.70 Intake, Oral 480 0 Intake, 350 Packed Cells Intake, 488 Platelet Output, Chest 540 410 Tube Drainage Output, Urine 945 955 Patient 74.1 kg Weight Weight Standing scale Measurement Method Vital Signs: Date Time Temp Pulse Resp B/P B/P Pulse O2 O2 Flow FiO2 Mean Ox Delivery Rate 10/22 1600 Nasal 2 cannula 10/22 1522 92 High flow 2 nasal cannula 10/22 1200 Nasal 2 cannula 10/22 1124 97 High flow 2 nasal cannula 10/22 0800 Nasal 2 cannula 10/22 0718 96 Room air 21 10/22 0600 132/69 94 10/22 0600 37.3 74 14 135/54 74 97 10/22 0530 124/72 91 10/22 0530 37.6 78 15 127/57 74 94 10/22 0500 127/63 88 10/22 0500 37.7 76 13 122/54 71 95 10/22 0445 Nasal 3 cannula 10/22 0430 133/73 97 10/22 0430 37.7 78 18 148/62 85 98 10/22 0400 37.3 10/22 0400 High flow 6 nasal cannula 10/22 0400 119/64 85 10/22 0400 37.5 76 25 118/49 69 99 10/22 0330 140/70 98 10/22 0330 37.8 71 17 138/54 78 100 10/22 0300 128/68 92 10/22 0300 37.8 72 17 145/56 81 100 10/22 0256 72 100 40 10/22 0256 100 BiPAP 40 10/22 0230 123/67 88 10/22 0230 37.7 74 21 134/57 80 99 10/22 0212 114/78 92 10/22 0212 37.9 79 17 129/63 81 99 10/22 0200 137/70 97 10/22 0200 38.0 72 16 159/63 87 99 10/22 0100 38.1 72 16 148/74 98 100 10/22 0037 BiPAP 40 10/22 0000 36.7 10/22 0000 BiPAP 60 10/22 0000 38.3 73 17 117/59 78 100 10/21 2351 BiPAP 60 10/21 2339 75 100 60 10/21 2339 100 BiPAP 60 10/21 2300 38.7 79 14 133/68 89 95 10/21 2245 High flow 12 nasal cannula 10/21 2200 37.9 83 18 154/78 103 92 10/21 2100 38.4 80 17 154/72 99 98 10/21 2007 98 High flow 10 nasal cannula 10/21 2000 36.9 10/21 2000 High flow 10 nasal cannula 10/21 2000 37.7 79 26 129/73 91 98 10/21 1900 36.6 75 21 121/66 84 PATIENT WEIGHT: Weight (lb): 163 Weight (oz): 5.8 Weight (kg): 73.936 Medications: Active Meds + DC'd Last 24 Hrs Ipratropium [place] (ATROVENT) 500 MCG RTQ2H PRN PRN INH Cyanocobalamin (Vitamin B-12 500 mcg tab) 500 MCG DAILY PO Ferrous Sulfate (FERROUS SULFATE) 325 MG DAILY PO Bisacodyl (DULCOLAX) 10 MG ONCE PRN RECTAL Magnesium Hydroxide (MILK OF MAGNESIA) 30 ML ONCE PRN PO Metoprolol Tartrate (LOPRESSOR) 12.5 MG ONCE ONE PO (DC) Clopidogrel Bisulfate (Plavix) 75 MG DAILY PO Polyethylene Glycol (MIRALAX) 17 GM DAILY PO Pantoprazole (PROTONIX) 40 MG DAILY@0600 PO Acetaminophen (OFIRMEV 10MG/ML) 100 ML Q6H IV (DC) Atorvastatin Calcium (LIPITOR) 40 MG 2100 PO Docusate Sodium (COLACE) 100 MG BID PO Metoprolol Tartrate (LOPRESSOR) 12.5 MG Q12HR PO Sennosides (Senna Lax 8.6 MG TABLET) 17.2 MG BEDTIME PO Aspirin (ASPIRIN) 81 MG DAILY PO Sodium Chloride (SODIUM CHLORIDE 0.9%) 100 ML ASDIR PRN IV Sodium Chloride (SODIUM CHLORIDE 0.9%) 100 ML ASDIR PRN IV Sodium Chloride (SODIUM CHLORIDE 0.9%) 100 ML ASDIR PRN IV Amiodarone HCl (CORDARONE) 200 MG TID PO Cefazolin Sodium (KEFZOL OR ANCEF) 3 GM ONCE ONE IV (DC) Sodium Chloride (SODIUM CHLORIDE 0.9%) 250 ML Ipratropium [place] (ATROVENT) 500 MCG RTQ4H INH Acetaminophen (TYLENOL) 650 MG Q4H PRN PRN PO Acetaminophen (TYLENOL) 650 MG Q4H PRN PRN RECTAL Albumin Human (ALBUMINAR 25%) 25 GM ASDIR PRN IV (DC) Calcium Chloride (CALCIUM CHLORIDE) 1 GM ASDIR PRN IV Dextrose/Water (DEXTROSE 10% IN WATER) 125 ML ASDIR PRN IV (CKD) Dextrose/Water (DEXTROSE 10% IN WATER) 250 ML ASDIR PRN IV (CKD) Epinephrine (ADRENALIN CHLORIDE) 4 MG ASDIR IV Dextrose/Water (DEXTROSE 5% WATER) 246 ML Glucagon (GLUCAGON) 1 MG ASDIR PRN IM Insulin Human Regular (MYXREDLIN 100 UNITS/NS 100ML) 100 ML ASDIR IV ( CKD) Magnesium Sulfate (MAGNESIUM SULFATE 4GM/SWFI 100ML) 100 ML ASDIR PRN IV Magnesium Sulfate (MAGNESIUM SULFATE 2GM/SWFI 50ML) 50 ML ASDIR PRN IV Magnesium Sulfate/Dextrose (MAGNESIUM SULFATE 1GM/D5W 100ML) 100 ML ASDIR PRN IV Mupirocin (BACTROBAN 2% 22 GM OINTMENT) 1 APPLIC BID NASAL Nitroglycerin/Dextrose (NITROGLYCERIN 50,000MCG/D5W 250ML) 250 ML ASDIR IV Norepinephrine/Dextrose (Norepinephrine 8 MG/D5W 250 mL) 250 ML TITRATE IV Ondansetron HCl (ZOFRAN) 4 MG Q6H PRN PRN IV Oxycodone HCl (ROXICODONE) 5 MG Q4H PRN PRN PO Oxycodone HCl (ROXICODONE) 10 MG Q4H PRN PRN PO Potassium Chloride (KCL 20MEQ/SWFI 100ML) 100 ML ASDIR PRN IV Sodium Bicarbonate (SODIUM BICARBONATE) 50 MEQ ASDIR PRN IV Sodium Chloride (SODIUM CHLORIDE 0.9%) 250 ML Q24H IV Physical Exam General appearance: alert, awake Neck: no bruit/NL carotids, no JVD Cardiovascular: CV assessment: regular rate and rhythm, BP pulses = bilaterally, normal heart sounds, pedal pulses present, no ectopy, no heave, no murmur Respiratory: clear to auscultation Abdomen: soft, non-tender, normal bowel sounds, no distention, no guarding, no mass/organomegaly, no pulsatile mass, no rebound 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: no motor deficits Diagnosis, Assessment Plan Free Text DxA P Notes Free Text DxA P Notes: 1. CAD: Two-vessel, plan for CABG sometime next week. 2. Hyperlipidemia: Continue statin 3. Hypertension: Continue carvedilol plan cabg difficult pt discussed with dr ko at 1750 RPT #:[id number] END OF REPORT [facility] 2024-10-18 14:37:00 [facility] ([facility]) Hospitalist Progress Note REPORT#:[id number] REPORT STATUS: Signed REPORT INITIALIZATION DATE:10/18/24 TIME: 1436 PATIENT: CLEO LONG UNIT #: [id number] ROOM/BED: [place] [address] : 61 AGE: 63 SEX: M ATTEND: Shyla Zepeda MD ADM AUTHOR: Shyla Zepeda MD REPT SERVICE DT/TIME: 10/18/241436 * ALL edits or amendments must be made on the electronic/computer document * Subjective Chief complaint: no cp no sob HPI: 63 years old male with PMH of HTN, CHF and CAD with 7 stents complaint of cp . pain did not radiate . he also found elevate troponin . he was transferred to the hospital from [facility] due to NSTEMI . no fever no cough no sob no edema no nausea no vomiting no rosalind pain no dysuria no dizziness no syncope no neurology deficit . Review of Systems All systems rev neg: except as noted Objective General VS/I O: Vital Signs: Date Time Temp Pulse Resp B/P B/P Pulse O2 O2 Flow FiO2 Mean Ox Delivery Rate 10/18 1241 96.3 63 20 149/73 0.0 91 Room air 10/18 0848 97.5 65 22 129/65 0.0 94 Room air 10/18 0333 98.4 67 14 151/74 0.0 93 Room air 10/18 0331 98.5 10/17 1900 98.6 75 16 125/74 91.0 97 Room air 10/17 1751 94 Room air PATIENT WEIGHT: Weight (lb): 158 Weight (oz): 4.67 Weight (kg): 71.800 Medications: Active Meds + DC'd Last 24 Hrs Melatonin (Melatonin) 6 MG BEDTIME PO Aspirin (ASPIRIN) 325 MG DAILY PO Nicotine (NICODERM) 14 MG DAILY TRANSDERM Atorvastatin Calcium (LIPITOR) 80 MG BEDTIME PO Carvedilol (COREG) 12.5 MG BID PO Furosemide (LASIX) 20 MG DAILY PO Spironolactone (ALDACTONE) 25 MG DAILY PO Acetaminophen (TYLENOL) 650 MG Q6H PRN PRN PO Morphine Sulfate (morphine SULFATE) 2 MG Q4H PRN PRN IV Ondansetron HCl (ZOFRAN) 4 MG Q4H PRN PRN IV Physical Exam General appearance: alert, awake, oriented Head/Eyes: atraumatic, normal conjunctiva/sclera, normal eyelids/periorb. Neck: full range of motion, non-tender, normal thyroid Cardiovascular: normal heart sounds, regular rate rhythm Respiratory: aerating well, clear to auscultation Abdomen: non-tender, normal bowel sounds, soft, no distention Extremities: moves all, no calf tenderness, no edema 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: alert, oriented X 3, CNII-XII intact, normal speech, no motor deficits, no sensory deficits Skin: dry, intact Psychiatry: normal affect, normal judgment/insight Results Radiology data: Recent Impressions: CAT SCAN - CT CHEST W/O CONTRAST 10/18 932 Report Impression - Status: SIGNED Entered: 10/18/2024 0943 IMPRESSION: 1. Patchy linear left basilar subsegmental atelectasis and trace left pleural effusion noted. 2. Cardiomegaly with a 2 cm thick pericardial effusion. Recommend correlation with echocardiography. Impression By: [email or web address] Alexia Quinonez M.D. Diagnosis, Assessment Plan Consultants: cardiology Free Text DxA P Notes Free text DxA P notes: 63 YO male with CAD with stent Substance use HTN heart disease with HF Chronic systolic HF EF 35-39% Right carotid stenosis 50-69% tele cardiology consult continue ASA/plavix /lipitor CHF -- continue lasix and aldactone -- cozaar HTN- continue coreg 10/16- no cp no sob -- cath today -- post cath -- CABG evaluation 10/17 CABG next week, medically stable to proceed 10/18 CABG next week, Chest CT scan showed ? Pericardal effusion. stable to proceed at 1734 RPT #:[id number] END OF REPORT [facility] 2024-10-18 12:17:00 [facility] Cardiothoracic Surgery Prog REPORT#:[id number] REPORT STATUS: Signed REPORT INITIALIZATION DATE:10/18/24 TIME: 1216 PATIENT: CLEO LONG UNIT #: [id number] ROOM/BED: [place] [address] : 61 AGE: 63 SEX: M ATTEND: Shyla Zepeda MD ADM AUTHOR: Elicia Fishman APRN REPT SERVICE DT/TIME: 10/18/24 1217 * ALL edits or amendments must be made on the electronic/computer document * Subjective Chief complaint: CAD CABG eval Review of Systems Constitutional: Denies: chills, fever, generalized weakness. Skin: Denies: abrasion, contusion, ecchymosis. Allergy/Immun: Denies: allergic reaction, hives, rhinorrhea. Eyes: Denies: redness, itching, diplopia. Respiratory: Denies: BAIG (dyspnea on exertion), non productive cough, pleuritic pain. Cardiovascular: Denies: chest pain, palpitations. GI: Denies: abdominal pain, nausea, vomiting. Heme: Denies: adenopathy, bleeding, bruising. Endocrine: Denies: cold intolerance, heat intolerance, polyphagia. Neuro: Denies: confusion, dizziness, seizure, syncope. All systems rev neg: except as marked Objective General VS/I O Last Documented: Result Date Time Pulse Ox 94 10/18 848 B/P 129/65 10/18 848 B/P Mean 0.0 10/18 848 O2 Delivery Room air 10/18 848 Temp 97.5 10/18 848 Pulse 65 10/18 848 Resp 22 10/18 848 PATIENT WEIGHT: Weight (lb): 158 Weight (oz): 4.67 Weight (kg): 71.800 Dietitian Nutrition assessment The data set between the solid lines has been imported from the dietitian's assessment. BMI Calculated: 22.7 Nutrition related diagnosis: Nutrition diagnosis details: Nutrition problem: Nutrition etiology: Nutrition signs and symptoms: Nutrition prescription: Dietitian name: Assessment completed: Physical Exam General appearance: alert, awake, oriented HEENT: anicteric, mucosal membranes moist, pupils reactive to light Neck: full range of motion, non-tender Cardiovascular: normal heart sounds, regular rate rhythm Respiratory: aerating well, symmetric expansion, no distress Abdomen: soft, non-tender Genitourinary: no bladder distention, no flank pain Extremities: dry, moves all Musculoskeletal: full range of motion, painless range of motion 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: alert, oriented X 3 Skin: dry, intact Psychiatry: normal affect, normal mood Current Medications Medications: Active Meds + DC'd Last 24 Hrs Melatonin (Melatonin) 6 MG BEDTIME PO Aspirin (ASPIRIN) 325 MG DAILY PO Nicotine (NICODERM) 14 MG DAILY TRANSDERM Atropine Sulfate (ATROPINE SULFATE 0.1MG/ML SYR) 0.5 MG ASDIR PRN IV (DC ) Atorvastatin Calcium (LIPITOR) 80 MG BEDTIME PO Carvedilol (COREG) 12.5 MG BID PO Furosemide (LASIX) 20 MG DAILY PO Spironolactone (ALDACTONE) 25 MG DAILY PO Acetaminophen (TYLENOL) 650 MG Q6H PRN PRN PO Morphine Sulfate (morphine SULFATE) 2 MG Q4H PRN PRN IV Ondansetron HCl (ZOFRAN) 4 MG Q4H PRN PRN IV Results Findings/Data: Laboratory Tests 10/17 1710 Coagulation Plt P2Y12 React Units (182 - 335 PRU) 87 L Radiology data: Recent Impressions: CAT SCAN - CT CHEST W/O CONTRAST 10/18 932 Report Impression - Status: SIGNED Entered: 10/18/202443 IMPRESSION: 1. Patchy linear left basilar subsegmental atelectasis and trace left pleural effusion noted. 2. Cardiomegaly with a 2 cm thick pericardial effusion. Recommend correlation with echocardiography. Impression By: [email or web address] - Neal Quinonez M.D. Results: labs reviewed, vital signs stable, rythm personally rev'd, current med profile rev'd Treatment Prophylaxis Treatment Prophylaxis CVC/PICC documentation: The data below has been imported from nursing documentation. Any exceptions have been noted below under Provider comments. CVC/PICC insertion date/time: Provider comments on imported nursing data: [] Quality: Trauma Gen Surg Current Medications Current medication review: Current Medications Sig/Nia Start time Last Medication Dose Route Stop Time Status Admin Aspirin 81 MG BEDTIME 10/15 2100 AC PO 01/13 2059 Acetaminophen 650 MG Q6H PRN PRN 10/15 1030 AC PO 01/13 1029 Clopidogrel Bisulfate 75 MG DAILY 10/15 1030 AC PO 01/13 1029 Morphine Sulfate 2 MG Q4H PRN PRN 10/15 1030 AC IV 10/20 1029 Ondansetron HCl 4 MG Q4H PRN PRN 10/15 1030 AC IV 01/13 1029 Albuterol/Ipratropium 3 ML X1ED STA 10/14 2127 DC 10/14 NEB 10/14 Aspirin 324 MG X1ED STA 10/14 2105 DC PO 10/14 2106 Home Medications: FUROSEMIDE (LASIX) 20 MG PO DAILY LOSARTAN 100 MG PO DAILY SPIRONOLACTONE (ALDACTONE) 25 MG PO DAILY ASPIRIN 81 MG PO DAILY CARVEDILOL (carvediloL) 12.5 MG PO BID CLOPIDOGREL (PLAVIX) 75 MG PO DAILY ATORVASTATIN (LIPITOR) 80 MG PO BEDTIME I attest that the foregoing medication list in the medical record is true, accurate, and complete to the best of my knowledge. Diagnosis, Assessment Plan Hospital course to date: This is a 63-year-old male with a past medical history of HTN, HLD, CHF and CAD with s/p 7 stents who presented with complaints of chest pain. The pain did not radiate. Labs include troponin of 71, and all other labs unremarkable. Patient was transferred to [facility] from [facility] due to NSTEMI. He denies recent fever, cough, shortness of breath, or edema. 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 Left circumflex large dominant vessel first obtuse marginal is patent has stents that looks fine another stent in the mid circumflex beyond the obtuse marginal that has 80 to 90% focal severe restenosis otherwise circumflex distally has diffuse disease distal disease. RCA small nondominant vessel. CV surgery consulted for evaluation of multi-vessel coronary artery disease. Dr. Ko has seen and examined the patient. Thank you for this kind consultation. Assessment/Plan: 1. Multi-vessel coronary artery disease s/p stents 2. Hypertension 3. Hyperlipidemia Patient not able to answer questions due to sedation effects following [facility] CABG workup initiated CT chest w/o contrast Vein mapping and marking Carotid US Urinalysis MRSA/MSSA Hemoglobin A1C Patient seen and examined by Dr. Ko. All questions answered. 10/17/24 Patient alert, awake, oriented, denies any chest pain Breathing comfortable on room air, encourage incentive spirometer teaching Labs and imaging reviewed Last dose of Plavix on 10/16, check platelet response to Plavix Urinalysis negative Hemoglobin A1c 5.[address] chest and MRSA/MSSA Carotid duplex shows 50 to 69% right internal carotid artery stenosis Vein mapping reviewed, veins not visualized on left knee and calf area Echocardiogram shows EF 35 to 39%, moderate to severe diffuse hypokinesis, grade 1 diastolic dysfunction, aortic valve thickening consistent with sclerosis, mild MR, small to moderate pericardial effusion Transfer to [facility] 1 Further recommendations to follow Patient seen and examined by Dr. Ko, discussed plan of care with patient, questions were answered 10/18/24 Patient alert, awake, oriented, denies any chest pain Breathing comfortable on room air, encourage incentive spirometer teaching Labs and imaging reviewed, patient had positive drug screen amphetamines and cannabis, educated patient on drug cessation Last dose of Plavix on 10/16, check platelet response to Plavix-87 Urinalysis negative Hemoglobin A1c 5.[address] chest and MRSA/MSSA- Carotid duplex shows 50 to 69% right internal carotid artery stenosis Vein mapping reviewed, veins not visualized on left knee and calf area Echocardiogram shows EF 35 to 39%, moderate to severe diffuse hypokinesis, grade 1 diastolic dysfunction, aortic valve thickening consistent with sclerosis, mild MR, small to moderate pericardial effusion Plan for surgery in upcoming week once platelet response to Plavix improved Patient seen and examined by Dr. Ko, discussed plan of care with patient, questions were answered Consultants: cardiology Code status: full code Plan discussed with: patient, collaborating MD, nurse at 1222 at 1428 RPT #:[id number] END OF REPORT [facility] 2024-10-17 17:01:00 [facility] ([facility]) Clinical Note REPORT#:[id number] REPORT STATUS: Signed REPORT INITIALIZATION DATE:10/17/24 TIME: 1701 PATIENT: CLEO LONG UNIT #: [id number] ROOM/BED: [place] [address] : 61 AGE: 63 SEX: M ATTEND: Shyla Zepeda MD ADM AUTHOR: Elicia Fishman APRN REPT SERVICE DT/TIME: 10/17/24 1701 * ALL edits or amendments must be made on the electronic/computer document * Clinical Note Note: Procedure Type: Isolated CABG Operative Mortality 0.897% Morbidity Mortality 5.84% Stroke 0.919% Renal Failure 0.505% Reoperation 3.77% Prolonged Ventilation 3.06% Deep Sternal Wound Infection 0.095% Long Hospital Stay (>14 days) 2.88% Short Hospital Stay (<6 days) 60.2% at 1702 at 1001 RPT #:[id number] END OF REPORT [facility] 2024-10-17 15:45:00 [facility] Cardiology Progress Note REPORT#:[id number] REPORT STATUS: Signed REPORT INITIALIZATION DATE:10/17/24 TIME: 1544 PATIENT: CLEO LONG UNIT #: [id number] ROOM/BED: [place] [address] : 62 AGE: 63 SEX: M ATTEND: Shyla Zepeda MD ADM AUTHOR: Katty Lee MD REPT SERVICE DT/TIME: 10/17/24 1545 * ALL edits or amendments must be made on the electronic/computer document * Subjective Free Text Subj Notes Free Text Subj Notes: Doing okay Objective General VS/I O: 24 hour I O ending at 0700: 10/17 0700 10/16 1900 Intake Total 85 Output Total Balance 85 Intake, Other 85 Patient 71.8 kg Weight Weight Bed scale Measurement Method Vital Signs: Date Time Temp Pulse Resp B/P B/P Pulse O2 O2 Flow FiO2 Mean Ox Delivery Rate 10/17 1101 97.3 64 15 113/73 86.4 96 Room air 10/17 718 97.3 60 16 149/80 103.3 96 Room air 10/17 040 97.5 62 14 155/79 104.3 96 Room air 10/16 2053 97.7 74 17 131/79 96.4 95 10/16 1717 97.5 71 18 149/87 107.6 98 PATIENT WEIGHT: Weight (lb): 158 Weight (oz): 4.67 Weight (kg): 71.800 Medications: Active Meds + DC'd Last 24 Hrs Aspirin (ASPIRIN) 325 MG DAILY PO Nicotine (NICODERM) 14 MG DAILY TRANSDERM Atropine Sulfate (ATROPINE SULFATE 0.1MG/ML SYR) 0.5 MG ASDIR PRN IV (DC ) Sodium Chloride (SODIUM CHLORIDE 0.9%) 1,000 ML .[id number] IV (DC) Atorvastatin Calcium (LIPITOR) 80 MG BEDTIME PO Carvedilol (COREG) 12.5 MG BID PO Furosemide (LASIX) 20 MG DAILY PO Losartan Potassium (COZAAR) 100 MG DAILY PO (DC) Spironolactone (ALDACTONE) 25 MG DAILY PO Acetaminophen (TYLENOL) 650 MG Q6H PRN PRN PO Morphine Sulfate (morphine SULFATE) 2 MG Q4H PRN PRN IV Ondansetron HCl (ZOFRAN) 4 MG Q4H PRN PRN IV Physical Exam General appearance: alert, awake, oriented Neck: no bruit/NL carotids, no JVD Cardiovascular: CV assessment: regular rate and rhythm, BP pulses = bilaterally, normal heart sounds, pedal pulses present, no ectopy, no heave, no murmur Respiratory: clear to auscultation Abdomen: soft, non-tender, normal bowel sounds, no distention, no guarding, no mass/organomegaly, no pulsatile mass, no rebound 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: no motor deficits Results Findings/Data: Laboratory Tests 10/17 10/17 0516 0516 Chemistry Sodium (134 - 147 mEq/L) 140 Potassium (3.4 - 5.0 mEq/L) 3.8 Chloride (100 - 108 mEq/L) 105 Carbon Dioxide (21 - 33 mEq/l) 28 Anion Gap (0 - 20) 11 BUN (7 - 25 mg/dL) 15 Creatinine (0.6 - 1.3 mg/dL) 0.9 Glomerular Filtr Rate (80 - 90) 96.6 H Glucose (77 - 141 mg/dL) 124 Hemoglobin A1c (4.8 - 6.0 %A1C) 5.3 Calcium (8.0 - 10.5 mg/dL) 9.7 Total Bilirubin (0.0 - 1.0 mg/dL) 0.30 AST (8 - 34 IUnit/L) 16 ALT (10 - 49 IUnit/L) 15 Total Alk Phosphatase (20 - 125 IUnit/L) 62 Total Protein (6.4 - 8.2 g/dL) 7.0 Albumin (3.4 - 5.0 g/dL) 3.10 L Laboratory Tests 10/17 516 Coagulation INR (0.8 - 1.2) 1.0 PTT (Rosi) (25.0 - 39.5 Seconds) 28.2 PT Patient/Control Mix (9.3 - 12.9 SECONDS) 11.1 Laboratory Tests 10/17 516 Hematology WBC (4.5 - 11.0 x10 3/uL) 7.6 RBC (4.00 - 5.60 x10 6/uL) 4.49 Hgb (12.5 - 16.9 g/dL) 12.7 Hct (37.5 - 50.7 %) 41.2 MCV (81.0 - 99.0 fL) 91.8 MCH (27.0 - 33.0 pg) 28.3 MCHC (33.0 - 37.0 g/dL) 30.8 L RDW (11.5 - 14.5 %) 13.5 Plt Count (150 - 400 x10 3/uL) 314 MPV (7.0 - 9.0 fL) 8.6 Neut % (Auto) (56.0 - 77.0 %) 64.5 Lymph % (Auto) (14.0 - 32.0 %) 24.3 [place] % (Auto) (4.8 - 9.0 %) 7.5 Eos % (Auto) (0.3 - 3.7 %) 3.3 Baso % (Auto) (0.0 - 2.0 %) 0.3 Neut # (Auto) (2.0 - 7.6 x10 3/uL) 4.91 Lymph # (Auto) (1.0 - 3.8 x10 3/uL) 1.85 [place] # (Auto) (0.1 - 0.8 x10 3/uL) 0.57 Eos # (Auto) (0.0 - 0.2 x10 3/uL) 0.25 H Baso # (Auto) (0.0 - 0.2 x10 3/uL) 0.02 Abs Immat Gran (auto) (0.00 - 0.03 x10 3/uL) 0.01 Immature Gran % (0.0 - 2.0 %) 0.1 Nucleated RBC % (0 - 0 %) 0.0 Nucleated RBCs # (Man) (0.0 - 0.1 x10 3/uL) 0.00 Laboratory Tests 10/16 2347 Urines Urine Color (YEL/STRAW) YELLOW Urine Appearance (CLEAR) CLEAR Urine pH (5.0 - 7.0) 6.0 Ur Specific [place] (1.005 - 1.030) 1.031 H Urine Protein (NEGATIVE) NEGATIVE Urine Glucose (UA) (NEGATIVE) NEGATIVE Urine Ketones (NEGATIVE) NEGATIVE Urine Blood (NEGATIVE) NEGATIVE Urine Nitrite (NEGATIVE) NEGATIVE Urine Bilirubin (NEGATIVE) NEGATIVE Urine Urobilinogen (0.2 - 1.0 mg/dL) 0.2 Ur Leukocyte Esterase (NEGATIVE) NEGATIVE Urine RBC (0 - 3 RBC/HPF) 0-3 Urine WBC (0 - 3 WBC/HPF) 0-3 Ur Squamous Epith Cells (NONE SEEN /HPF) NONE SEEN Urine Bacteria (NONE SEEN /HPF) NONE SEEN Urine Mucus (NONE SEEN /LPF) TRACE Diagnosis, Assessment Plan Free Text DxA P Notes Free Text DxA P Notes: 1. CAD: Two-vessel, plan for CABG sometime next week. 2. Hyperlipidemia: Continue statin 3. Hypertension: Continue carvedilol at 1628 RPT #:[id number] END OF REPORT [facility] 2024-10-17 14:39:00 [facility] Hospitalist Progress Note REPORT#:[id number] REPORT STATUS: Signed REPORT INITIALIZATION DATE:10/17/24 TIME: 1438 PATIENT: CLEO LONG UNIT #: [id number] ROOM/BED: [address] : [birth year] AGE: 63 SEX: M ATTEND: Shyla Zepeda MD ADM AUTHOR: Shyla Zepeda MD REPT SERVICE DT/TIME: 10/17/24 1439 * ALL edits or amendments must be made on the electronic/computer document * Subjective Chief complaint: no cp no sob HPI: 63 years old male with PMH of HTN, CHF and CAD with 7 stents complaint of cp . pain did not radiate . he also found elevate troponin . he was transferred to the hospital from [facility] due to NSTEMI . no fever no cough no sob no edema no nausea no vomiting no rosalind pain no dysuria no dizziness no syncope no neurology deficit . Review of Systems All systems rev neg: except as noted Objective General VS/I O: Vital Signs: Date Time Temp Pulse Resp B/P B/P Pulse O2 O2 Flow FiO2 Mean Ox Delivery Rate 10/17 1900 98.6 75 16 125/74 91.0 97 Room air 10/17 1751 94 Room air 10/17 1620 65 17 114/69 84.1 93 Room air 10/17 1101 97.3 64 15 113/73 86.4 96 Room air 10/17 0718 97.3 60 16 149/80 103.3 96 Room air 10/17 0406 97.5 62 14 155/79 104.3 96 Room air 10/16 2053 97.7 74 17 131/79 96.4 95 24 hour I O ending at 0700: 10/17 0700 10/16 1900 Intake Total 85 Output Total Balance 85 Intake, Other 85 Patient 71.8 kg Weight Weight Bed scale Measurement Method PATIENT WEIGHT: Weight (lb): 158 Weight (oz): 4.67 Weight (kg): 71.800 Medications: Active Meds + DC'd Last 24 Hrs Aspirin (ASPIRIN) 325 MG DAILY PO Nicotine (NICODERM) 14 MG DAILY TRANSDERM Atropine Sulfate (ATROPINE SULFATE 0.1MG/ML SYR) 0.5 MG ASDIR PRN IV (DC ) Sodium Chloride (SODIUM CHLORIDE 0.9%) 1,000 ML .[id number] IV (DC) Atorvastatin Calcium (LIPITOR) 80 MG BEDTIME PO Carvedilol (COREG) 12.5 MG BID PO Furosemide (LASIX) 20 MG DAILY PO Spironolactone (ALDACTONE) 25 MG DAILY PO Acetaminophen (TYLENOL) 650 MG Q6H PRN PRN PO Morphine Sulfate (morphine SULFATE) 2 MG Q4H PRN PRN IV Ondansetron HCl (ZOFRAN) 4 MG Q4H PRN PRN IV Physical Exam General appearance: alert, awake, oriented, no acute distress Head/Eyes: atraumatic, normal conjunctiva/sclera, normal eyelids/periorb. Neck: full range of motion, non-tender, normal thyroid Cardiovascular: normal heart sounds, regular rate rhythm Respiratory: aerating well, clear to auscultation Abdomen: non-tender, normal bowel sounds, soft, no distention Extremities: moves all, no calf tenderness, no edema 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: alert, oriented X 3, CNII-XII intact, normal speech, no motor deficits, no sensory deficits Skin: dry, intact Results Findings/Data: Laboratory Tests 10/17 10/17 0516 0516 Chemistry Sodium (134 - 147 mEq/L) 140 Potassium (3.4 - 5.0 mEq/L) 3.8 Chloride (100 - 108 mEq/L) 105 Carbon Dioxide (21 - 33 mEq/l) 28 Anion Gap (0 - 20) 11 BUN (7 - 25 mg/dL) 15 Creatinine (0.6 - 1.3 mg/dL) 0.9 Glomerular Filtr Rate (80 - 90) 96.6 H Glucose (77 - 141 mg/dL) 124 Hemoglobin A1c (4.8 - 6.0 %A1C) 5.3 Calcium (8.0 - 10.5 mg/dL) 9.7 Total Bilirubin (0.0 - 1.0 mg/dL) 0.30 AST (8 - 34 IUnit/L) 16 ALT (10 - 49 IUnit/L) 15 Total Alk Phosphatase (20 - 125 IUnit/L) 62 Total Protein (6.4 - 8.2 g/dL) 7.0 Albumin (3.4 - 5.0 g/dL) 3.10 L Laboratory Tests 10/17 10/17 1710 0516 Coagulation INR (0.8 - 1.2) 1.0 PTT ([place]) (25.0 - 39.5 Seconds) 28.2 PT Patient/Control Mix (9.3 - 12.9 SECONDS) 11.1 Plt P2Y12 React Units (182 - 335 PRU) 87 L Laboratory Tests 10/17 0516 Hematology WBC (4.5 - 11.0 x10 3/uL) 7.6 RBC (4.00 - 5.60 x10 6/uL) 4.49 Hgb (12.5 - 16.9 g/dL) 12.7 Hct (37.5 - 50.7 %) 41.2 MCV (81.0 - 99.0 fL) 91.8 MCH (27.0 - 33.0 pg) 28.3 MCHC (33.0 - 37.0 g/dL) 30.8 L RDW (11.5 - 14.5 %) 13.5 Plt Count (150 - 400 x10 3/uL) 314 MPV (7.0 - 9.0 fL) 8.6 Neut % (Auto) (56.0 - 77.0 %) 64.5 Lymph % (Auto) (14.0 - 32.0 %) 24.3 [place] % (Auto) (4.8 - 9.0 %) 7.5 Eos % (Auto) (0.3 - 3.7 %) 3.3 Baso % (Auto) (0.0 - 2.0 %) 0.3 Neut # (Auto) (2.0 - 7.6 x10 3/uL) 4.91 Lymph # (Auto) (1.0 - 3.8 x10 3/uL) 1.85 [place] # (Auto) (0.1 - 0.8 x10 3/uL) 0.57 Eos # (Auto) (0.0 - 0.2 x10 3/uL) 0.25 H Baso # (Auto) (0.0 - 0.2 x10 3/uL) 0.02 Abs Immat Gran (auto) (0.00 - 0.03 x10 3/uL) 0.01 Immature Gran % (0.0 - 2.0 %) 0.1 Nucleated RBC % (0 - 0 %) 0.0 Nucleated RBCs # (Man) (0.0 - 0.1 x10 3/uL) 0.00 Laboratory Tests 10/16 2347 Urines Urine Color (YEL/STRAW) YELLOW Urine Appearance (CLEAR) CLEAR Urine pH (5.0 - 7.0) 6.0 Ur Specific [place] (1.005 - 1.030) 1.031 H Urine Protein (NEGATIVE) NEGATIVE Urine Glucose (UA) (NEGATIVE) NEGATIVE Urine Ketones (NEGATIVE) NEGATIVE Urine Blood (NEGATIVE) NEGATIVE Urine Nitrite (NEGATIVE) NEGATIVE Urine Bilirubin (NEGATIVE) NEGATIVE Urine Urobilinogen (0.2 - 1.0 mg/dL) 0.2 Ur Leukocyte Esterase (NEGATIVE) NEGATIVE Urine RBC (0 - 3 RBC/HPF) 0-3 Urine WBC (0 - 3 WBC/HPF) 0-3 Ur Squamous Epith Cells (NONE SEEN /HPF) NONE SEEN Urine Bacteria (NONE SEEN /HPF) NONE SEEN Urine Mucus (NONE SEEN /LPF) TRACE Radiology data: Recent Impressions: RADIOLOGY - XR CHEST 1 V 10/17 1042 Report Impression - Status: SIGNED Entered: 10/17/2024 1048 IMPRESSION: 1. Enlarged cardiac mediastinal silhouette, clear lungs. Impression By: [email or web address] Alexia Nam M.D. ULTRASOUND - US EXTREM NON VASC COMP 10/17 111 Report Impression - Status: SIGNED Entered: 10/17/2024 1140 IMPRESSION: Right greater saphenous vein (diameter cm, depth cm, compressible): Thigh proximal: 0.26, 1.09, yes Thigh mid: 0.18, 0.52, yes Thigh distal: 0.17, 0.51, yes Knee: 0.16, 0.35, yes Calf proximal: 0.19, 1.14, yes Calf mid: 0.15, 0.19, yes Calf distal: 0.17, 0.23, yes Left greater saphenous vein (diameter cm, depth cm, compressible): Thigh proximal: 0.22, 1.48, yes Thigh mid: 0.22, 1.67, yes Thigh distal: 0.19, 1.39, yes Knee: Not visualized Calf proximal: Not visualized Calf mid: Not visualized Calf distal: Not visualized Impression By: [email or web address] Alexia Isbell M.D. ULTRASOUND - DUP EXTRACRANIAL AMBROSE 10/17 1113 Report Impression - Status: SIGNED Entered: 10/17/2024 1135 IMPRESSION: Moderate (50-69%) right cervical internal carotid artery stenosis. Impression By: [email or web address] Alexia Isbell M.D. Diagnosis, Assessment Plan Consultants: cardiology Free Text DxA P Notes Free text DxA P notes: 63 YO male with CAD with stent Substance use HTN heart disease with HF Chronic systolic HF EF 35-39% Right carotid stenosis 50-69% tele cardiology consult continue ASA/plavix /lipitor CHF -- continue lasix and aldactone -- cozaar HTN- continue coreg 10/16- no cp no sob -- cath today -- post cath -- CABG evaluation 10/17 CABG next week, medically stable to proceed at 1942 RPT #:[id number] END OF REPORT [facility] 2024-10-17 14:27:00 [facility]) Cardiothoracic Surgery Prog REPORT#:[id number] REPORT STATUS: Signed REPORT INITIALIZATION DATE:10/17/24 TIME: 1426 PATIENT: CLEO LONG UNIT #: [id number] ROOM/BED: [place] [address] : [birth year] AGE: 63 SEX: M ATTEND: Shyla Zepeda MD ADM AUTHOR: Elicia Fishman APRN REPT SERVICE DT/TIME: 10/17/241426 * ALL edits or amendments must be made on the electronic/computer document * Subjective Chief complaint: CAD CABG eval Review of Systems Constitutional: Denies: chills, fever, generalized weakness. Skin: Denies: abrasion, contusion, ecchymosis. Allergy/Immun: Denies: allergic reaction, hives, rhinorrhea. Eyes: Denies: redness, itching, diplopia. Respiratory: Denies: BAIG (dyspnea on exertion), non productive cough, pleuritic pain. Cardiovascular: Denies: chest pain, palpitations. GI: Denies: abdominal pain, nausea, vomiting. Heme: Denies: adenopathy, bleeding, bruising. Endocrine: Denies: cold intolerance, heat intolerance, polyphagia. Neuro: Denies: confusion, dizziness, seizure, syncope. All systems rev neg: except as marked Objective General VS/I O Last Documented: Result Date Time Pulse Ox 96 10/17 110 B/P 113/73 10/17 110 B/P Mean 86.4 10/17 110 O2 Delivery Room air 10/17 1101 Temp 97.3 10/17 110 Pulse 64 10/17 1101 Resp 15 10/17 110 24 hour I O ending at 0700: 10/17 0700 10/16 1900 Intake Total 85 Output Total Balance 85 Intake, Other 85 Patient 71.8 kg Weight Weight Bed scale Measurement Method PATIENT WEIGHT: Weight (lb): 158 Weight (oz): 4.67 Weight (kg): 71.800 Dietitian Nutrition assessment The data set between the solid lines has been imported from the dietitian's assessment. BMI Calculated: 22.9 Nutrition related diagnosis: Nutrition diagnosis details: Nutrition problem: Nutrition etiology: Nutrition signs and symptoms: Nutrition prescription: Dietitian name: Assessment completed: Physical Exam General appearance: alert, awake, oriented HEENT: anicteric, mucosal membranes moist, pupils reactive to light Neck: full range of motion, non-tender Cardiovascular: normal heart sounds, regular rate rhythm Respiratory: aerating well, symmetric expansion, no distress Abdomen: soft, non-tender Genitourinary: no bladder distention, no flank pain Extremities: dry, moves all Musculoskeletal: full range of motion, painless range of motion 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: alert, oriented X 3 Skin: dry, intact Psychiatry: normal affect, normal mood Current Medications Medications: Active Meds + DC'd Last 24 Hrs Aspirin (ASPIRIN) 325 MG DAILY PO Nicotine (NICODERM) 14 MG DAILY TRANSDERM Atropine Sulfate (ATROPINE SULFATE 0.1MG/ML SYR) 0.5 MG ASDIR PRN IV (DC ) Sodium Chloride (SODIUM CHLORIDE 0.9%) 1,000 ML .[id number] IV (DC) Atorvastatin Calcium (LIPITOR) 80 MG BEDTIME PO Carvedilol (COREG) 12.5 MG BID PO Furosemide (LASIX) 20 MG DAILY PO Losartan Potassium (COZAAR) 100 MG DAILY PO (DC) Spironolactone (ALDACTONE) 25 MG DAILY PO Acetaminophen (TYLENOL) 650 MG Q6H PRN PRN PO Morphine Sulfate (morphine SULFATE) 2 MG Q4H PRN PRN IV Ondansetron HCl (ZOFRAN) 4 MG Q4H PRN PRN IV Results Findings/Data: Laboratory Tests 10/17 0516 Chemistry Sodium (134 - 147 mEq/L) 140 Potassium (3.4 - 5.0 mEq/L) 3.8 Chloride (100 - 108 mEq/L) 105 Carbon Dioxide (21 - 33 mEq/l) 28 Anion Gap (0 - 20) 11 BUN (7 - 25 mg/dL) 15 Creatinine (0.6 - 1.3 mg/dL) 0.9 Glomerular Filtr Rate (80 - 90) 96.6 H Glucose (77 - 141 mg/dL) 124 Hemoglobin A1c (4.8 - 6.0 %A1C) 5.3 Calcium (8.0 - 10.5 mg/dL) 9.7 Total Bilirubin (0.0 - 1.0 mg/dL) 0.30 AST (8 - 34 IUnit/L) 16 ALT (10 - 49 IUnit/L) 15 Total Alk Phosphatase (20 - 125 IUnit/L) 62 Total Protein (6.4 - 8.2 g/dL) 7.0 Albumin (3.4 - 5.0 g/dL) 3.10 L Laboratory Tests 10/17 516 Coagulation INR (0.8 - 1.2) 1.0 PTT (Rosi) (25.0 - 39.5 Seconds) 28.2 PT Patient/Control Mix (9.3 - 12.9 SECONDS) 11.1 Laboratory Tests 10/17 516 Hematology WBC (4.5 - 11.0 x10 3/uL) 7.6 RBC (4.00 - 5.60 x10 6/uL) 4.49 Hgb (12.5 - 16.9 g/dL) 12.7 Hct (37.5 - 50.7 %) 41.2 MCV (81.0 - 99.0 fL) 91.8 MCH (27.0 - 33.0 pg) 28.3 MCHC (33.0 - 37.0 g/dL) 30.8 L RDW (11.5 - 14.5 %) 13.5 Plt Count (150 - 400 x10 3/uL) 314 MPV (7.0 - 9.0 fL) 8.6 Neut % (Auto) (56.0 - 77.0 %) 64.5 Lymph % (Auto) (14.0 - 32.0 %) 24.3 [place] % (Auto) (4.8 - 9.0 %) 7.5 Eos % (Auto) (0.3 - 3.7 %) 3.3 Baso % (Auto) (0.0 - 2.0 %) 0.3 Neut # (Auto) (2.0 - 7.6 x10 3/uL) 4.91 Lymph # (Auto) (1.0 - 3.8 x10 3/uL) 1.85 [place] # (Auto) (0.1 - 0.8 x10 3/uL) 0.57 Eos # (Auto) (0.0 - 0.2 x10 3/uL) 0.25 H Baso # (Auto) (0.0 - 0.2 x10 3/uL) 0.02 Abs Immat Gran (auto) (0.00 - 0.03 x10 3/uL) 0.01 Immature Gran % (0.0 - 2.0 %) 0.1 Nucleated RBC % (0 - 0 %) 0.0 Nucleated RBCs # (Man) (0.0 - 0.1 x10 3/uL) 0.00 Laboratory Tests 10/167 Urines Urine Color (YEL/STRAW) YELLOW Urine Appearance (CLEAR) CLEAR Urine pH (5.0 - 7.0) 6.0 Ur Specific [place] (1.005 - 1.030) 1.031 H Urine Protein (NEGATIVE) NEGATIVE Urine Glucose (UA) (NEGATIVE) NEGATIVE Urine Ketones (NEGATIVE) NEGATIVE Urine Blood (NEGATIVE) NEGATIVE Urine Nitrite (NEGATIVE) NEGATIVE Urine Bilirubin (NEGATIVE) NEGATIVE Urine Urobilinogen (0.2 - 1.0 mg/dL) 0.2 Ur Leukocyte Esterase (NEGATIVE) NEGATIVE Urine RBC (0 - 3 RBC/HPF) 0-3 Urine WBC (0 - 3 WBC/HPF) 0-3 Ur Squamous Epith Cells (NONE SEEN /HPF) NONE SEEN Urine Bacteria (NONE SEEN /HPF) NONE SEEN Urine Mucus (NONE SEEN /LPF) TRACE Radiology data: Recent Impressions: RADIOLOGY - XR CHEST 1 V 10/17 1042 Report Impression - Status: SIGNED Entered: 10/17/2024 1048 IMPRESSION: 1. Enlarged cardiac mediastinal silhouette, clear lungs. Impression By: [email or web address] - John Nam M.D. ULTRASOUND - US EXTREM NON VASC COMP 10/17 1113 Report Impression - Status: SIGNED Entered: 10/17/2024 1140 IMPRESSION: Right greater saphenous vein (diameter cm, depth cm, compressible): Thigh proximal: 0.26, 1.09, yes Thigh mid: 0.18, 0.52, yes Thigh distal: 0.17, 0.51, yes Knee: 0.16, 0.35, yes Calf proximal: 0.19, 1.14, yes Calf mid: 0.15, 0.19, yes Calf distal: 0.17, 0.23, yes Left greater saphenous vein (diameter cm, depth cm, compressible): Thigh proximal: 0.22, 1.48, yes Thigh mid: 0.22, 1.67, yes Thigh distal: 0.19, 1.39, yes Knee: Not visualized Calf proximal: Not visualized Calf mid: Not visualized Calf distal: Not visualized Impression By: [email or web address] Alexia Isbell M.D. ULTRASOUND - DUP EXTRACRANIAL AMBROSE 10/17 1113 Report Impression - Status: SIGNED Entered: 10/17/2024 1135 IMPRESSION: Moderate (50-69%) right cervical internal carotid artery stenosis. Impression By: [email or web address] Alexia Isbell M.D. Results: labs reviewed, vital signs stable, cath. personally reviewed, rythm personally rev'd, x-ray personally reviewed, current med profile rev'd Treatment Prophylaxis Treatment Prophylaxis CVC/PICC documentation: The data below has been imported from nursing documentation. Any exceptions have been noted below under Provider comments. CVC/PICC insertion date/time: Provider comments on imported nursing data: [] Quality: Trauma Gen Surg Current Medications Current medication review: Current Medications Sig/Nai Start time Last Medication Dose Route Stop Time Status Admin Aspirin 81 MG BEDTIME 10/15 2100 AC PO 01/13 205 Acetaminophen 650 MG Q6H PRN PRN 10/15 1030 AC PO 01/13 1029 Clopidogrel Bisulfate 75 MG DAILY 10/15 1030 AC PO 01/13 1029 Morphine Sulfate 2 MG Q4H PRN PRN 10/15 1030 AC IV 10/20 1029 Ondansetron HCl 4 MG Q4H PRN PRN 10/15 1030 AC IV 01/13 1029 Albuterol/Ipratropium 3 ML X1ED STA 10/14 2127 DC 10/14 NEB 10/14 Aspirin 324 MG X1ED STA 10/14 2105 DC PO 10/14 2106 Home Medications: FUROSEMIDE (LASIX) 20 MG PO DAILY LOSARTAN 100 MG PO DAILY SPIRONOLACTONE (ALDACTONE) 25 MG PO DAILY ASPIRIN 81 MG PO DAILY CARVEDILOL (carvediloL) 12.5 MG PO BID CLOPIDOGREL (PLAVIX) 75 MG PO DAILY ATORVASTATIN (LIPITOR) 80 MG PO BEDTIME I attest that the foregoing medication list in the medical record is true, accurate, and complete to the best of my knowledge. Diagnosis, Assessment Plan Hospital course to date: This is a 63-year-old male with a past medical history of HTN, HLD, CHF and CAD with s/p 7 stents who presented with complaints of chest pain. The pain did not radiate. Labs include troponin of 71, and all other labs unremarkable. Patient was transferred to [facility] from [facility] due to NSTEMI. He denies recent fever, cough, shortness of breath, or edema. 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 Left circumflex large dominant vessel first obtuse marginal is patent has stents that looks fine another stent in the mid circumflex beyond the obtuse marginal that has 80 to 90% focal severe restenosis otherwise circumflex distally has diffuse disease distal disease. RCA small nondominant vessel. CV surgery consulted for evaluation of multi-vessel coronary artery disease. Dr. Ko has seen and examined the patient. Thank you for this kind consultation. Assessment/Plan: 1. Multi-vessel coronary artery disease s/p stents 2. Hypertension 3. Hyperlipidemia Patient not able to answer questions due to sedation effects following CUAUHTEMOC CABG workup initiated CT chest w/o contrast Vein mapping and marking Carotid US Urinalysis MRSA/MSSA Hemoglobin A1C Patient seen and examined by Dr. Ko. All questions answered. 10/17/24 Patient alert, awake, oriented, denies any chest pain Breathing comfortable on room air, encourage incentive spirometer teaching Labs and imaging reviewed Last dose of Plavix on 10/16, check platelet response to Plavix Urinalysis negative Hemoglobin A1c 5.[address] chest and MRSA/MSSA Carotid duplex shows 50 to 69% right internal carotid artery stenosis Vein mapping reviewed, veins not visualized on left knee and calf area Echocardiogram shows EF 35 to 39%, moderate to severe diffuse hypokinesis, grade 1 diastolic dysfunction, aortic valve thickening consistent with sclerosis, mild MR, small to moderate pericardial effusion Transfer to N 1 Further recommendations to follow Patient seen and examined by Dr. Ko, discussed plan of care with patient, questions were answered Consultants: cardiology Code status: full code Plan discussed with: patient, collaborating MD, nurse at 1438 at 1001 [facility] #:[id number] END OF REPORT [facility] 2024-10-17 09:20:00 [id number] [place] [address] PATIENT NAME: CLEO LONG ADMIT DATE: 10/14/24 ACCOUNT NO: [id number] ROOM NO: [id number] AGE: 63 REPORT TYPE: eECHOCARDIOGRAM REPORT SEX: M ADMITTING PHYSICIAN:Shyla Zepeda MD ATTENDING PHYSICIAN:Shyla Zepeda MD *[place] [address] Transthoracic Echocardiogram Patient: Cleo Long Study Date: 10/15/2024 BP: 118 / 70 URN: [id number] Location: : 1960 Age: 63 Gender: M Height: 70 in / 177.8 cm Weight: 159 lb / 72.1 kg BMI/BSA: 22.8 kg/m 2 / 1.89 m 2 *Ordering Physician: * Alec Norris MD *Interpreting Physician: * Alec Norris MD *Metal Stamping Machine Operator: * Franchesca Landeros Indications: SOB. Chest Pain, unspecified. Study data: Transthoracic echocardiogram. Procedure: A transthoracic echocardiogram was performed. Image quality was adequate. Complete 2D, complete spectral Doppler, and color Doppler. Location: Bedside. Patient room number: ER HOF 107. Heart rate: 77 bpm. Findings Left ventricle: The cavity size is mildly dilated. Wall thickness is normal. Systolic function is moderately reduced. The estimated ejection fraction is 35-39%. There is moderate to severe diffuse hypokinesis. Regional wall motion abnormalities cannot be excluded. Grade I diastolic dysfunction. Right ventricle: The cavity size is normal. Systolic function is normal. PATIENT NAME: CLEO LONG Left atrium: The atrium is normal in size. Right atrium: The atrium is normal in size. Aorta: Aortic root: The root is normal-sized. Aortic valve: The valve is trileaflet. There is thickening, consistent with sclerosis. There is no evidence of stenosis. There is no regurgitation. Mitral valve: The valve is structurally normal. There is no evidence of stenosis. There is mild regurgitation. Tricuspid valve: The valve is structurally normal. There is trace regurgitation. Pulmonic valve: The valve is structurally normal. There is no regurgitation. Pericardium: A small to moderate pericardial effusion is identified. Pulmonary arteries: The main pulmonary artery is normal-sized. Systemic veins: Inferior vena cava: The IVC is normal-sized. Measurements Left ventricle Value Ref GLS, 2D -11 % --------- EVY, LAX 6.0 cm 4.2 - 5.8 ESD, LAX 4.9 cm 2.5 - 4.0 FS, LAX 19 % 25 - 43 IVS, ED 1.2 cm 0.6 - 1.0 PW, ED 1.2 cm 0.6 - 1.0 IVS/PW, ED 0.98 --------- EF 38 % 52 - 72 E', lat marcus, TDI 7.6 cm/sec >=10.0 E/e', lat marcus, TDI 8 <=13 E', med marcus, TDI 3.7 cm/sec >=7.0 E/e', med marcus, TDI 16 --------- E', avg, TDI 5.7 cm/sec --------- E/e', avg, TDI 10 <=14 LVOT Value Ref Diam, S 2.12 cm --------- Area 3.5 cm 2 --------- Peak kim, S 0.93 m/sec --------- Mean kim, S 0.53 m/sec --------- VTI, S 16.9 cm --------- Peak grad, S 3 mm Hg --------- Mean grad, S 1 mm Hg --------- SV 60 ml --------- SV/bsa 32 ml/m 2 --------- Right ventricle Value Ref EVY, LAX 2.8 cm --------- Pressure, S 14 mm Hg --------- RVOT Value Ref Peak v, S 1.06 m/sec --------- Peak grad, S 5 mm Hg --------- PATIENT NAME: CLEO LONG Left atrium Value Ref Vol/bsa, S 29 ml/m 2 16 - 34 Vol/bsa, ES, 1-p A4C 23 ml/m 2 12 - 37 Vol, ES, 2-p 56 ml --------- Vol/bsa, ES, 2-p 29 ml/m 2 16 - 34 Vol/bsa, ES, A/L 23 ml/m 2 16 - 34 AP dim, ES MM 4.5 cm 3.0 - 4.0 LA/Ao root ratio, MM 1.33 --------- Aortic valve Value Ref Leaflet sep, MM 1.75 cm --------- Peak v, S 1.2 m/sec --------- Mean v, S 0.72 m/sec --------- VTI, S 22.0 cm --------- Mean grad, S 3 mm Hg --------- Peak grad, S 5.5 mm Hg --------- LVOT/AV, VTI ratio 0.77 --------- RAMONA, VTI 2.71 cm 2 --------- LVOT/AV, Vpeak ratio 0.8 --------- RAMONA, Vmax 2.81 cm 2 --------- Mitral valve Value Ref E-septal separation 1.1 cm --------- E-F slope 0.07 m/sec --------- Peak E 0.58 m/sec --------- Peak A 1.1 m/sec --------- Decel time 121 ms --------- PHT 49 ms --------- Peak E/A ratio 0.53 --------- MVA, PHT 4.5 cm 2 --------- Tricuspid valve Value Ref TR peak v 1.2 m/sec <=2.8 Peak RV-RA grad, S 6 mm Hg --------- Aortic root Value Ref Root diam, ED MM 3.4 cm --------- Pulmonary artery Value Ref Pressure, S 9.2 mm Hg --------- Systemic veins Value Ref Estimated CVP 8 mm Hg --------- Conclusions Summary: 1. Left ventricle: The cavity size is mildly dilated. Wall thickness is normal. Systolic function is moderately reduced. The estimated ejection fraction is 35-39%. There is moderate to severe diffuse hypokinesis. Regional wall motion abnormalities cannot be excluded. Grade I diastolic PATIENT NAME: CLEO LONG dysfunction. 2. Right ventricle: The RV pressure during systole is 14 mm Hg. 3. Aortic valve: There is thickening, consistent with sclerosis. 4. Mitral valve: There is mild regurgitation. 5. Pericardium, extracardiac: A small to moderate pericardial effusion is identified. Electronically signed by Alec Norris MD 10/17/2024 09:20 at 0920 PATIENT NAME: CLEO LONG [facility] 2024-10-16 19:17:00 [facility] ([facility]) Cardiothoracic Surgery Consult REPORT#:[id number] REPORT STATUS: Signed REPORT INITIALIZATION DATE:10/16/24 TIME: 1916 PATIENT: CLEO LONG UNIT #: [id number] ROOM/BED: 3352-1 : 61 AGE: 63 SEX: M ATTEND: Shyla Zepeda MD ADM AUTHOR: Margaret SerranoFAMILY EDUCATOR REPT SERVICE DT/TIME: 10/16/241916 * ALL edits or amendments must be made on the electronic/computer document * Margaret Serrano 10/16/241916: History of Present Illness HPI Chief complaint: CAD CABG eval PCP: PCP: No Primary or Family Physician Requesting Clinician Kayla Mclain MD HPI: This is a 63-year-old male with a past medical history of HTN, HLD, CHF and CAD with s/p 7 stents who presented with complaints of chest pain. The pain did not radiate. Labs include troponin of 71, and all other labs unremarkable. Patient was transferred to [facility] from [facility] due to NSTEMI. He denies recent fever, cough, shortness of breath, or edema. 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 Left circumflex large dominant vessel first obtuse marginal is patent has stents that looks fine another stent in the mid circumflex beyond the obtuse marginal that has 80 to 90% focal severe restenosis otherwise circumflex distally has diffuse disease distal disease. RCA small nondominant vessel. CV surgery consulted for evaluation of multi-vessel coronary artery disease. Dr. Ko has seen and examined the patient. Thank you for this kind consultation. Hx Obtained From Prior medical records History Past Medical History: Reports: Congestive heart failure, Coronary artery disease, Hypertension. Smoking status for patients 13 years old or older: Current every day smoker Allergies: Coded Allergies: No Known Allergies (10/14/24) Review of Systems Review of Systems Unable to obtain due to: Patient sedated for CUAUHTEMOC Objective Physical Exam VS/I O: Last Documented: Result Date Time Pulse Ox 98 10/16 1717 B/P 149/87 10/16 1717 B/P Mean 107.6 10/16 1717 Temp 97.5 10/16 1717 Pulse 71 10/16 1717 Resp 18 10/16 1717 O2 Delivery Room air 10/16 351 24 hour I O ending at 0700: 10/16 0710/15 190 Intake Total Output Total 900 Balance -900 Output, Urine 900 PATIENT WEIGHT: Weight (lb): Weight (oz): Weight (kg): 72.500 General appearance: sedated HEENT: anicteric, mucosal membranes moist, pupils reactive to light, sclera clear Neck: full range of motion, non-tender Cardiovascular: BP/pulses equal bilat., no ectopy Respiratory: symmetric expansion, no distress Abdomen: soft, non-tender, normal bowel sounds Genitourinary: urine Extremities: dry, moves all, normal capillary refill Musculoskeletal: full range of motion, painless range of motion 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: alert, oriented X 3 Skin: dry, intact, normal temperature Results Findings/Data: Laboratory Tests 10/16 2211 Chemistry Sodium (134 - 147 mEq/L) 140 Potassium (3.4 - 5.0 mEq/L) 4.1 Chloride (100 - 108 mEq/L) 106 Carbon Dioxide (21 - 33 mEq/l) 28 Anion Gap (0 - 20) 10 BUN (7 - 25 mg/dL) 19 Creatinine (0.6 - 1.3 mg/dL) 1.0 Glomerular Filtr Rate (80 - 90) 85.1 Glucose (77 - 141 mg/dL) 103 Calcium (8.0 - 10.5 mg/dL) 9.1 Troponin I High Sens (0 - 54 ng/L) 67 H Triglycerides (40 - 150 mg/dL) 74 Cholesterol (<200 mg/dL) 113 LDL Cholesterol Measurd (0 - 100 mg/dL) 64.0 HDL Cholesterol (40 - 60 MG/DL) 36.4 L Cholesterol/HDL Ratio (3.43 - 4.97 RATIO) 3.10 L Laboratory Tests 10/16 533 Hematology WBC (4.5 - 11.0 x10 3/uL) 9.0 RBC (4.00 - 5.60 x10 6/uL) 4.30 Hgb (12.5 - 16.9 g/dL) 12.1 L Hct (37.5 - 50.7 %) 37.8 MCV (81.0 - 99.0 fL) 87.9 MCH (27.0 - 33.0 pg) 28.1 MCHC (33.0 - 37.0 g/dL) 32.0 L RDW (11.5 - 14.5 %) 14.2 Plt Count (150 - 400 x10 3/uL) 276 MPV (7.0 - 9.0 fL) 8.6 Neut % (Auto) (56.0 - 77.0 %) 62.0 Lymph % (Auto) (14.0 - 32.0 %) 24.4 [place] % (Auto) (4.8 - 9.0 %) 10.2 H Eos % (Auto) (0.3 - 3.7 %) 2.8 Baso % (Auto) (0.0 - 2.0 %) 0.4 Neut # (Auto) (2.0 - 7.6 x10 3/uL) 5.58 Lymph # (Auto) (1.0 - 3.8 x10 3/uL) 2.20 [place] # (Auto) (0.1 - 0.8 x10 3/uL) 0.92 H Eos # (Auto) (0.0 - 0.2 x10 3/uL) 0.25 H Baso # (Auto) (0.0 - 0.2 x10 3/uL) 0.04 Abs Immat Gran (auto) (0.00 - 0.03 x10 3/uL) 0.02 Immature Gran % (0.0 - 2.0 %) 0.2 Nucleated RBC % (0 - 0 %) 0.0 Nucleated RBCs # (Man) (0.0 - 0.1 x10 3/uL) 0.00 Results: labs reviewed, vital signs reviewed, rhythm personally rev'd, current med profile rev'd Diagnosis, Assessment Plan Free Text A P: This is a 63-year-old male with a past medical history of HTN, HLD, CHF and CAD with s/p 7 stents who presented with complaints of chest pain. The pain did not radiate. Labs include troponin of 71, and all other labs unremarkable. Patient was transferred to [facility] from [facility] due to NSTEMI. He denies recent fever, cough, shortness of breath, or edema. 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 Left circumflex large dominant vessel first obtuse marginal is patent has stents that looks fine another stent in the mid circumflex beyond the obtuse marginal that has 80 to 90% focal severe restenosis otherwise circumflex distally has diffuse disease distal disease. RCA small nondominant vessel. CV surgery consulted for evaluation of multi-vessel coronary artery disease. Dr. Ko has seen and examined the patient. Thank you for this kind consultation. Assessment/Plan: 1. Multi-vessel coronary artery disease s/p stents 2. Hypertension 3. Hyperlipidemia Patient not able to answer questions due to sedation effects following CUAUHTEMOC CABG workup initiated CT chest w/o contrast Vein mapping and marking Carotid US Urinalysis MRSA/MSSA Hemoglobin A1C Patient seen and examined by Dr. Ko. All questions answered. Consultants: cardiology Plan discussed with: nurse Code Status/Resusc. Discussion Resuscitation discussion: Discussed with: patient Code status: full code Quality: Trauma Gen Surg Current Medications Current medication review: Current Medications Sig/Nia Start time Last Medication Dose Route Stop Time Status Admin Aspirin 81 MG BEDTIME 10/15 2100 AC PO 01/13 205 Acetaminophen 650 MG Q6H PRN PRN 10/15 1030 AC PO 01/13 1029 Clopidogrel Bisulfate 75 MG DAILY 10/15 1030 AC PO 01/13 1029 Morphine Sulfate 2 MG Q4H PRN PRN 10/15 1030 AC IV 10/20 1029 Ondansetron HCl 4 MG Q4H PRN PRN 10/15 1030 AC IV 01/13 1029 Albuterol/Ipratropium 3 ML X1ED STA 10/14 2127 DC 10/14 NEB 10/14 Aspirin 324 MG X1ED STA 10/14 2105 DC PO 10/14 2106 Home Medications: FUROSEMIDE (LASIX) 20 MG PO DAILY LOSARTAN 100 MG PO DAILY SPIRONOLACTONE (ALDACTONE) 25 MG PO DAILY ASPIRIN 81 MG PO DAILY CARVEDILOL (carvediloL) 12.5 MG PO BID CLOPIDOGREL (PLAVIX) 75 MG PO DAILY ATORVASTATIN (LIPITOR) 80 MG PO BEDTIME I attest that the foregoing medication list in the medical record is true, accurate, and complete to the best of my knowledge. Deniz Ko 10/18/24 0957: Attestations Physician Attestation Agree w/findings plan: I have seen and examined Mr. Long. I agree with the findings and plan as documented by YOSEF Martinez. 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 Cath Procedure Cath Procedure Start date: 10/16/24 Start time: 1409 Pre-procedure diagnosis: Chest Pain Post-procedure diagnosis: CAD Procedure performed: diag coronary angiography, left heart cath Performed by: Dr Charley Mclain Stereo Equipment Installer(s): none Procedure details: 1. 6 Pashto right radial access 2. Selective left coronary angiography 3. Selective right coronary angiography Complications none Estimate blood loss minimal Anesthesia local anesthesia with conscious sedation Description of procedure Right wrist was prepped and draped usual sterile fashion local anesthesia was administered and a 6 Pashto sheath was placed in right radial arterial cocktail was given 2.5 mg of verapamil 5000 international units of heparin Barney catheter was advanced selective left coronary angiography right coronary angiography no complications finding as below Left main has eccentric 40 to 50% stenosis specially seen in the cranial shots with heavily heavy calcification bifurcates into an LAD and left circumflex LAD has diffuse moderate disease there is an area of an aneurysm versus pseudoaneurysm right in the proximal edge of overlapping stents in the mid segments Left circumflex large dominant vessel first obtuse marginal is patent has stents that looks fine another stent in the mid circumflex beyond the obtuse marginal that has 80 to 90% focal severe restenosis otherwise circumflex distally has diffuse disease distal disease RCA small nondominant vessel Next impression: Left main stenosis with LAD disease as described above with patent LAD stents Patent left circumflex stents in the obtuse marginal in the mid circumflex but with 80 to 90% critical stenosis Small nondominant RCA with no significant disease Plan: Consult cardiothoracic surgery for CABG versus PCI/stenting of the circumflex only Findings: Left heart cath/coronary angiogram performed. Complications: none Anesthesia type: local, moderate sedation Mod. sedation provided by me: yes Independent trained observer present monitored pt's resp. to the sedation no Estimated blood loss in ml's: 5 Access site closure: TR band Disposition: cardiac recovery unit Plan: Plan: CABG Specimens removed/altered: none Implants: none at 1423 at 1147 RPT #:[id number] END OF REPORT [facility] 2024-10-16 10:50:00 [facility] ([facility]) Hospitalist Progress Note REPORT#:[id number] REPORT STATUS: Signed REPORT INITIALIZATION DATE:10/16/24 TIME: 1050 PATIENT: CLEO LONG UNIT #: [id number] ROOM/BED: 4405-1 : 62 AGE: 63 SEX: M ATTEND: Shyla Zepeda MD ADM AUTHOR: Sue John MD REPT SERVICE DT/TIME: 10/16/24 1050 * ALL edits or amendments must be made on the electronic/computer document * Subjective Chief complaint: no cp no sob HPI: 63 years old male with PMH of HTN, CHF and CAD with 7 stents complaint of cp . pain did not radiate . he also found elevate troponin . he was transferred to the hospital from [facility] due to NSTEMI . no fever no cough no sob no edema no nausea no vomiting no rosalind pain no dysuria no dizziness no syncope no neurology deficit . Review of Systems All systems rev neg: except as noted Objective General VS/I O: Vital Signs: Date Time Temp Pulse Resp B/P B/P Pulse O2 O2 Flow FiO2 Mean Ox Delivery Rate 10/16 0740 36.3 72 128/77 94.4 94 10/16 0435 16 10/16 0351 36.3 64 142/81 101.5 94 Room air 10/16 0035 15 10/16 0007 36.7 73 113/70 83.9 93 Room air 10/15 1954 36.6 77 118/71 86.8 94 Room air 10/15 1649 36.5 73 150/82 104.9 94 10/15 1445 81 12 158/81 106 94 10/15 1057 36.4 71 144/81 101.9 24 hour I O ending at 0700: 10/16 0700 10/15 1900 Intake Total Output Total 900 Balance -900 Output, Urine 900 PATIENT WEIGHT: Weight (lb): Weight (oz): Weight (kg): 72.500 Medications: Active Meds + DC'd Last 24 Hrs Aspirin (ASPIRIN) 81 MG BEDTIME PO Atorvastatin Calcium (LIPITOR) 80 MG BEDTIME PO Carvedilol (COREG) 12.5 MG BID PO Furosemide (LASIX) 20 MG DAILY PO Losartan Potassium (COZAAR) 100 MG DAILY PO Spironolactone (ALDACTONE) 25 MG DAILY PO Acetaminophen (TYLENOL) 650 MG Q6H PRN PRN PO Clopidogrel Bisulfate (Plavix) 75 MG DAILY PO Morphine Sulfate (morphine SULFATE) 2 MG Q4H PRN PRN IV Ondansetron HCl (ZOFRAN) 4 MG Q4H PRN PRN IV Physical Exam General appearance: alert, awake, oriented Head/Eyes: atraumatic, normal conjunctiva/sclera, normal eyelids/periorb. Neck: full range of motion, non-tender, normal thyroid Cardiovascular: normal heart sounds, regular rate rhythm Respiratory: aerating well, clear to auscultation Abdomen: non-tender, normal bowel sounds, soft, no distention Extremities: moves all, no calf tenderness, no edema 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: alert, oriented X 3, CNII-XII intact, normal speech, no motor deficits, no sensory deficits Skin: dry, intact Results Findings/Data: Laboratory Tests 10/16 2211 Chemistry Sodium (134 - 147 mEq/L) 140 Potassium (3.4 - 5.0 mEq/L) 4.1 Chloride (100 - 108 mEq/L) 106 Carbon Dioxide (21 - 33 mEq/l) 28 Anion Gap (0 - 20) 10 BUN (7 - 25 mg/dL) 19 Creatinine (0.6 - 1.3 mg/dL) 1.0 Glomerular Filtr Rate (80 - 90) 85.1 Glucose (77 - 141 mg/dL) 103 Calcium (8.0 - 10.5 mg/dL) 9.1 Troponin I High Sens (0 - 54 ng/L) 67 H Triglycerides (40 - 150 mg/dL) 74 Cholesterol (<200 mg/dL) 113 LDL Cholesterol Measurd (0 - 100 mg/dL) 64.0 HDL Cholesterol (40 - 60 MG/DL) 36.4 L Cholesterol/HDL Ratio (3.43 - 4.97 RATIO) 3.10 L Laboratory Tests 10/16 533 Hematology WBC (4.5 - 11.0 x10 3/uL) 9.0 RBC (4.00 - 5.60 x10 6/uL) 4.30 Hgb (12.5 - 16.9 g/dL) 12.1 L Hct (37.5 - 50.7 %) 37.8 MCV (81.0 - 99.0 fL) 87.9 MCH (27.0 - 33.0 pg) 28.1 MCHC (33.0 - 37.0 g/dL) 32.0 L RDW (11.5 - 14.5 %) 14.2 Plt Count (150 - 400 x10 3/uL) 276 MPV (7.0 - 9.0 fL) 8.6 Neut % (Auto) (56.0 - 77.0 %) 62.0 Lymph % (Auto) (14.0 - 32.0 %) 24.4 [place] % (Auto) (4.8 - 9.0 %) 10.2 H Eos % (Auto) (0.3 - 3.7 %) 2.8 Baso % (Auto) (0.0 - 2.0 %) 0.4 Neut # (Auto) (2.0 - 7.6 x10 3/uL) 5.58 Lymph # (Auto) (1.0 - 3.8 x10 3/uL) 2.20 [place] # (Auto) (0.1 - 0.8 x10 3/uL) 0.92 H Eos # (Auto) (0.0 - 0.2 x10 3/uL) 0.25 H Baso # (Auto) (0.0 - 0.2 x10 3/uL) 0.04 Abs Immat Gran (auto) (0.00 - 0.03 x10 3/uL) 0.02 Immature Gran % (0.0 - 2.0 %) 0.2 Nucleated RBC % (0 - 0 %) 0.0 Nucleated RBCs # (Man) (0.0 - 0.1 x10 3/uL) 0.00 Diagnosis, Assessment Plan Consultants: cardiology Free Text DxA P Notes Free text DxA P notes: elevate troponin cp CAD with stent substance use HTN CHF tele cardiology consult continue ASA/plavix /lipitor CHF -- continue lasix and aldactone -- cozaar HTN- continue coreg 10/16- no cp no sob -- cath today -- post cath -- CABG evaluation Quality: Gen [facility] Crit Care Current Medications Current medication review: Current Medications Sig/Nia Start time Last Medication Dose Route Stop Time Status Admin Aspirin 81 MG BEDTIME 10/15 2100 AC PO 01/13 2059 Acetaminophen 650 MG Q6H PRN PRN 10/15 1030 AC PO 01/13 1029 Clopidogrel Bisulfate 75 MG DAILY 10/15 1030 AC PO 01/13 1029 Morphine Sulfate 2 MG Q4H PRN PRN 10/15 1030 AC IV 10/20 1029 Ondansetron HCl 4 MG Q4H PRN PRN 10/15 1030 AC IV 01/13 1029 Albuterol/Ipratropium 3 ML X1ED STA 10/14 2127 DC 10/14 NEB 10/14 Aspirin 324 MG X1ED STA 10/14 2105 DC PO 10/14 2106 Home Medications: FUROSEMIDE (LASIX) 20 MG PO DAILY LOSARTAN 100 MG PO DAILY SPIRONOLACTONE (ALDACTONE) 25 MG PO DAILY ASPIRIN 81 MG PO DAILY CARVEDILOL (carvediloL) 12.5 MG PO BID CLOPIDOGREL (PLAVIX) 75 MG PO DAILY ATORVASTATIN (LIPITOR) 80 MG PO BEDTIME I attest that the foregoing medication list in the medical record is true, accurate, and complete to the best of my knowledge. at 1804 RPT #:[id number] END OF REPORT [facility] 2024-10-16 07:06:00 [facility] Cardiology Progress Note REPORT#:[id number] REPORT STATUS: Signed REPORT INITIALIZATION DATE:10/16/24 TIME: 705 PATIENT: CLEO LONG UNIT #: [id number] ROOM/BED: [place] [id number] : 62 AGE: 63 SEX: M ATTEND: Shyla Zepeda MD ADM AUTHOR: Alec Norris MD REPT SERVICE DT/TIME: 10/16/24 07 * ALL edits or amendments must be made on the electronic/computer document * Objective General VS/I O: 24 hour I O ending at 0700: 10/16 0700 10/15 1900 Intake Total Output Total 900 Balance -900 Output, Urine 900 Vital Signs: Date Time Temp Pulse Resp B/P B/P Pulse O2 O2 Flow FiO2 Mean Ox Delivery Rate 10/16 0435 16 10/16 0351 36.3 64 142/81 101.5 94 Room air 10/16 0035 15 10/16 0007 36.7 73 113/70 83.9 93 Room air 10/15 1954 36.6 77 118/71 86.8 94 Room air 10/15 1649 36.5 73 150/82 104.9 94 10/15 1445 81 12 158/81 106 94 10/15 1057 36.4 71 144/81 101.9 10/15 0850 36.5 79 126/76 92.8 93 PATIENT WEIGHT: Weight (lb): Weight (oz): Weight (kg): 72.500 Medications: Active Meds + DC'd Last 24 Hrs Aspirin (ASPIRIN) 81 MG BEDTIME PO Atorvastatin Calcium (LIPITOR) 80 MG BEDTIME PO Carvedilol (COREG) 12.5 MG BID PO Furosemide (LASIX) 20 MG DAILY PO Losartan Potassium (COZAAR) 100 MG DAILY PO Spironolactone (ALDACTONE) 25 MG DAILY PO Acetaminophen (TYLENOL) 650 MG Q6H PRN PRN PO Clopidogrel Bisulfate (Plavix) 75 MG DAILY PO Morphine Sulfate (morphine SULFATE) 2 MG Q4H PRN PRN IV Ondansetron HCl (ZOFRAN) 4 MG Q4H PRN PRN IV Physical Exam General appearance: alert, awake Neck: no bruit/NL carotids, no JVD Cardiovascular: CV assessment: regular rate and rhythm, BP pulses = bilaterally, normal heart sounds, pedal pulses present, no ectopy, no heave, no murmur Respiratory: clear to auscultation Abdomen: soft, non-tender, normal bowel sounds, no distention, no guarding, no mass/organomegaly, no pulsatile mass, no rebound 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: no motor deficits Results Findings/Data: Laboratory Tests 10/16 0533 Hematology WBC (4.5 - 11.0 x10 3/uL) 9.0 RBC (4.00 - 5.60 x10 6/uL) 4.30 Hgb (12.5 - 16.9 g/dL) 12.1 L Hct (37.5 - 50.7 %) 37.8 MCV (81.0 - 99.0 fL) 87.9 MCH (27.0 - 33.0 pg) 28.1 MCHC (33.0 - 37.0 g/dL) 32.0 L RDW (11.5 - 14.5 %) 14.2 Plt Count (150 - 400 x10 3/uL) 276 MPV (7.0 - 9.0 fL) 8.6 Neut % (Auto) (56.0 - 77.0 %) 62.0 Lymph % (Auto) (14.0 - 32.0 %) 24.4 [place] % (Auto) (4.8 - 9.0 %) 10.2 H Eos % (Auto) (0.3 - 3.7 %) 2.8 Baso % (Auto) (0.0 - 2.0 %) 0.4 Neut # (Auto) (2.0 - 7.6 x10 3/uL) 5.58 Lymph # (Auto) (1.0 - 3.8 x10 3/uL) 2.20 [place] # (Auto) (0.1 - 0.8 x10 3/uL) 0.92 H Eos # (Auto) (0.0 - 0.2 x10 3/uL) 0.25 H Baso # (Auto) (0.0 - 0.2 x10 3/uL) 0.04 Abs Immat Gran (auto) (0.00 - 0.03 x10 3/uL) 0.02 Immature Gran % (0.0 - 2.0 %) 0.2 Nucleated RBC % (0 - 0 %) 0.0 Nucleated RBCs # (Man) (0.0 - 0.1 x10 3/uL) 0.00 Diagnosis, Assessment Plan Free Text DxA P Notes Free Text DxA P Notes: cath today 3 vessel disease plan cabg discussed with pt and family at 1905 RPT #:[id number] END OF REPORT [facility] 2024-10-15 07:38:00 [facility] ([facility]) Hospitalist History Physical REPORT#:[id number] REPORT STATUS: Signed REPORT INITIALIZATION DATE:10/15/24 TIME: 737 PATIENT: CLEO LONG UNIT #: [id number] ROOM/BED: [place] [address] : 61 AGE: 63 SEX: M ATTEND: Shyla Zepeda MD ADM AUTHOR: Sue John MD REPT SERVICE DT/TIME: 10/15/24 0738 * ALL edits or amendments must be made on the electronic/computer document * History of Present Illness HPI Chief complaint: cp HPI: 63 years old male with PMH of HTN, CHF and CAD with 7 stents complaint of cp . pain did not radiate . he also found elevate troponin . he was transferred to the hospital from [facility] due to NSTEMI . no fever no cough no sob no edema no nausea no vomiting no rosalind pain no dysuria no dizziness no syncope no neurology deficit . History Social History Smoking status for patients 13 years old or older: Current every day smoker Medication/Allergy-Vaccine Hx Allergies: Coded Allergies: No Known Allergies (10/14/24) Review of Systems Constitutional: Denies: fatigue, fever, generalized weakness, lethargy. ENT: Denies: sore throat. Respiratory: Denies: pneumonia, productive cough (sputum), SOB, wheezing. Cardiovascular: Reports: chest pain. Denies: BAIG (dyspnea on exertion), edema, orthopnea, palpitations. GI: Denies: abdominal pain, diarrhea, nausea, vomiting. : Denies: dysuria, flank pain, frequency, hematuria. Neuro: Denies: dizziness, numbness, seizure, syncope. OBJECTIVE VS/I O: Vital Signs Date Temp Pulse Resp B/P B/P Mean Pulse Ox FiO2 10/14-10/15 36.6 67-82 16 120-161/67-91 84-112.1 94-100 Last Documented: Result Date Time Pulse Ox 100 10/15 0428 B/P 154/91 10/15 0428 B/P Mean 112.1 10/15 0428 Pulse 82 10/15 0428 O2 Delivery Room air 10/14 2154 Temp 36.6 10/14 2050 Resp 16 10/14 2050 24 hour I O ending at 0700: 10/15 0700 10/14 1900 Intake Total Output Total Balance Patient 72.5 kg Weight Weight Bed scale Measurement Method Patient Weight and BMI Weight (kg): 72.500 BMI: 22.9 Medications: Active Meds + DC'd Last 24 Hrs Albuterol/Ipratropium (DUONEB) 3 ML X1ED STA NEB (DC) Aspirin (ASPIRIN) 324 MG X1ED STA PO (DC) General appearance: alert, awake, oriented Head/Eyes: atraumatic, normal conjunctiva/sclera, normal eyelids/periorb. Neck: full range of motion, non-tender, normal thyroid Cardiovascular: normal heart sounds, regular rate rhythm Respiratory: aerating well, clear to auscultation Abdomen: non-tender, normal bowel sounds, soft, no distention Extremities: moves all, no calf tenderness, no edema 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: alert, oriented X 3, CNII-XII intact, normal speech, no motor deficits, no sensory deficits Skin: dry, intact Results Findings/Data: Laboratory Tests: 10/15 10/15 10/14 10/14 10/14 0141 0029 2308 2226 2133 Chemistry Troponin I High Sens (0 - 54 ng/L) 72 H 69 H 73 H LDL Cholesterol Measurd (0 - 100 55.0 mg/dL) Toxicology Urine Opiates Screen (NEGATIVE) NEGATIVE Urine Barbiturates (NEGATIVE) NEGATIVE Ur Phencyclidine Scrn (NEGATIVE) NEGATIVE Ur Amphetamines Screen (NEGATIVE) POSITIVE H U Benzodiazepines Scrn (NEGATIVE) NEGATIVE Urine Cocaine Screen (NEGATIVE) NEGATIVE Urine Cannabinoids (NEGATIVE) POSITIVE H 10/14 2108 Chemistry Sodium (134 - 147 mEq/L) 138 Potassium (3.4 - 5.0 mEq/L) 3.6 Chloride (100 - 108 mEq/L) 106 Carbon Dioxide (21 - 33 mEq/l) 28 Anion Gap (0 - 20) 8 BUN (7 - 25 mg/dL) 15 Creatinine (0.6 - 1.3 mg/dL) 1.0 Glomerular Filtr Rate (80 - 90) 85.1 Glucose (77 - 141 mg/dL) 101 Calcium (8.0 - 10.5 mg/dL) 9.2 Magnesium (1.6 - 2.6 mg/dL) 1.86 Troponin I High Sens (0 - 54 ng/L) 71 H B-Natriuretic Peptide (0 - 100 PG/ML) 109.0 H Coagulation INR (0.8 - 1.2) 1.0 PTT ([place]) (25.0 - 39.5 Seconds) 30.9 PT Patient/Control Mix (9.3 - 12.9 SECONDS) 11.5 Hematology WBC (4.5 - 11.0 x10 3/uL) 9.7 RBC (4.00 - 5.60 x10 6/uL) 4.06 Hgb (12.5 - 16.9 g/dL) 11.7 L Hct (37.5 - 50.7 %) 35.3 L MCV (81.0 - 99.0 fL) 86.9 MCH (27.0 - 33.0 pg) 28.8 MCHC (33.0 - 37.0 g/dL) 33.1 RDW (11.5 - 14.5 %) 14.0 Plt Count (150 - 400 x10 3/uL) 229 MPV (7.0 - 9.0 fL) 8.5 Neut % (Auto) (56.0 - 77.0 %) 64.2 Lymph % (Auto) (14.0 - 32.0 %) 21.5 [place] % (Auto) (4.8 - 9.0 %) 10.9 H Eos % (Auto) (0.3 - 3.7 %) 2.8 Baso % (Auto) (0.0 - 2.0 %) 0.3 Neut # (Auto) (2.0 - 7.6 x10 3/uL) 6.22 Lymph # (Auto) (1.0 - 3.8 x10 3/uL) 2.08 [place] # (Auto) (0.1 - 0.8 x10 3/uL) 1.06 H Eos # (Auto) (0.0 - 0.2 x10 3/uL) 0.27 H Baso # (Auto) (0.0 - 0.2 x10 3/uL) 0.03 Abs Immat Gran (auto) (0.00 - 0.03 x10 3/uL) 0.03 Immature Gran % (0.0 - 2.0 %) 0.3 Nucleated RBC % (0 - 0 %) 0.0 Nucleated RBCs # (Man) (0.0 - 0.1 x10 3/uL) 0.00 Laboratory Tests 10/14/242107: [Embedded Image Not Available] Radiology data: Recent Impressions: RADIOLOGY - XR CHEST 1 V 10/14 2126 Report Impression - Status: SIGNED Entered: 10/14/20242137 IMPRESSION: Cardiomegaly. No focal infiltrate or effusion. Impression By: Stephanie - Rosemary Corea M.D. Diagnosis, Assessment Plan Free Text A P: elevate troponin cp CAD with stent substance use HTN CHF tele cardiology consult continue ASA/plavix /lipitor CHF -- continue lasix and aldactone -- cozaar HTN- continue coreg Consultants: cardiology Quality: Gen Med Crit Care Current Medications Current medication review: Current Medications Sig/Nia Start time Last Medication Dose Route Stop Time Status Admin Aspirin 81 MG BEDTIME 10/15 2100 AC PO 01/13 2059 Acetaminophen 650 MG Q6H PRN PRN 10/15 1030 AC PO 01/13 1029 Clopidogrel Bisulfate 75 MG DAILY 10/15 1030 AC PO 01/13 1029 Morphine Sulfate 2 MG Q4H PRN PRN 10/15 1030 AC IV 10/20 1029 Ondansetron HCl 4 MG Q4H PRN PRN 10/15 1030 AC IV 01/13 1029 Albuterol/Ipratropium 3 ML X1ED STA 10/14 2127 DC 10/14 NEB 10/14 Aspirin 324 MG X1ED STA 10/14 2105 DC PO 10/14 2106 Home Medications: FUROSEMIDE (LASIX) 20 MG PO DAILY LOSARTAN 100 MG PO DAILY SPIRONOLACTONE (ALDACTONE) 25 MG PO DAILY ASPIRIN 81 MG PO DAILY CARVEDILOL (carvediloL) 12.5 MG PO BID CLOPIDOGREL (PLAVIX) 75 MG PO DAILY ATORVASTATIN (LIPITOR) 80 MG PO BEDTIME I attest that the foregoing medication list in the medical record is true, accurate, and complete to the best of my knowledge. at 1238 RPT #:[id number] END OF REPORT [facility] 2024-10-15 06:56:00 [facility] ([facility] Cardiology Consultation REPORT#:[id number] REPORT STATUS: Signed REPORT INITIALIZATION DATE:10/15/24 TIME: 655 PATIENT: CLEO LONG UNIT #: [id number] ROOM/BED: [place] [address] : 61 AGE: 63 SEX: M ATTEND: Shyla Zepeda MD ADM AUTHOR: Alec Norris MD REPT SERVICE DT/TIME: 10/15/24 0656 * ALL edits or amendments must be made on the electronic/computer document * History of Present Illness HPI HPI: 63 years old male with PMH of HTN, CHF and CAD with 7 stents complaint of cp . pain did not radiate . he also found elevate troponin . he was transferred to the hospital from [facility] due to NSTEMI . no fever no cough no sob no edema no nausea no vomiting no rosalind pain no dysuria no dizziness no syncope no neurology deficit . History - Adult longitudinal Past medical history: Denies: Alcoholism/subst abuse, Anemia, Arthritis, Asthma, Atrial fibrillation, Cancer, Congestive heart failure, COPD, Coronary artery disease, Dementia, Depression/mood disorder, Diabetes mellitus, GERD/gastritis, Hypertension, Kidney disease/stones, Seizure disorder, Transient ischemic attack, , Abdominal aortic aneurysm, ADD/ADHD, AIDS, Angina pectoris, Anticoagulant therapy, Atrial flutter, Bleeding disorder, BPH, C diff colitis, Cardiac dysrhythmias, Chronic pain, Cirrhosis, Congenital anomalies, Dyslipidemia, Gallbladder dis/stones, GI bleed, Glaucoma, Headache disorder, Hepatitis, HIV, Intracranial hemorrhage, Ischemic stroke, Motor dysfunction, Pancreatitis, Peptic ulcer disease, Periph arterial disease, Pressure ulcer, Prior VT, Schizophrenia, Sickle cell disease, Steroid use, Thyroid disorder, Transfusion history, Tuberculosis, Urinary tract infection, Venous thromboembolism. Allergies: Coded Allergies: No Known Allergies (10/14/24) Objective General VS/I O: Vital Signs: Date Time Temp Pulse Resp B/P B/P Pulse O2 O2 Flow FiO2 Mean Ox Delivery Rate 10/15 1649 36.5 73 150/82 104.9 94 10/15 1445 81 12 158/81 106 94 10/15 1057 36.4 71 144/81 101.9 10/15 0850 36.5 79 126/76 92.8 93 10/15 0428 82 154/91 112.1 100 10/15 0130 68 153/84 107 95 10/15 0100 69 145/81 102 95 10/15 0000 71 140/73 95 96 10/14 2300 71 139/70 93 94 10/14 2200 71 140/73 95 98 10/14 2154 94 Room air 10/14 2145 73 120/67 84 94 10/14 2115 71 161/83 109 96 10/14 2050 36.6 67 16 141/72 95 100 24 hour I O ending at 0700: 10/15 0700 10/14 1900 Intake Total Output Total Balance Patient 72.5 kg Weight Weight Bed scale Measurement Method PATIENT WEIGHT: Weight (lb): Weight (oz): Weight (kg): 72.500 Medications: Active Meds + DC'd Last 24 Hrs Aspirin (ASPIRIN) 81 MG BEDTIME PO Atorvastatin Calcium (LIPITOR) 80 MG BEDTIME PO Carvedilol (COREG) 12.5 MG BID PO Furosemide (LASIX) 20 MG DAILY PO Losartan Potassium (COZAAR) 100 MG DAILY PO Spironolactone (ALDACTONE) 25 MG DAILY PO Acetaminophen (TYLENOL) 650 MG Q6H PRN PRN PO Clopidogrel Bisulfate (Plavix) 75 MG DAILY PO Morphine Sulfate (morphine SULFATE) 2 MG Q4H PRN PRN IV Ondansetron HCl (ZOFRAN) 4 MG Q4H PRN PRN IV Albuterol/Ipratropium (DUONEB) 3 ML X1ED STA NEB (DC) Aspirin (ASPIRIN) 324 MG X1ED STA PO (DC) Physical Exam General appearance: alert, awake Neck: no bruit/NL carotids, no JVD Cardiovascular: CV assessment: regular rate and rhythm, BP pulses = bilaterally, normal heart sounds, pedal pulses present, no ectopy, no gallop, no heave, no murmur, no rub, no thrill Respiratory: clear to auscultation Abdomen: soft, non-tender, normal bowel sounds, no distention, no guarding, no mass/organomegaly, no pulsatile mass, no rebound Lower extremity: LE assessment: edema, normal capillary refill, normal temperature 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: no motor deficits Results Findings/Data: Findings/Data: Laboratory Tests 10/16 9751 Chemistry Sodium (134 - 147 mEq/L) 140 Potassium (3.4 - 5.0 mEq/L) 4.1 Chloride (100 - 108 mEq/L) 106 Carbon Dioxide (21 - 33 mEq/l) 28 Anion Gap (0 - 20) 10 BUN (7 - 25 mg/dL) 19 Creatinine (0.6 - 1.3 mg/dL) 1.0 Glomerular Filtr Rate (80 - 90) 85.1 Glucose (77 - 141 mg/dL) 103 Calcium (8.0 - 10.5 mg/dL) 9.1 Troponin I High Sens (0 - 54 ng/L) 67 H Triglycerides (40 - 150 mg/dL) 74 Cholesterol (<200 mg/dL) 113 LDL Cholesterol Measurd (0 - 100 mg/dL) 64.0 HDL Cholesterol (40 - 60 MG/DL) 36.4 L Cholesterol/HDL Ratio (3.43 - 4.97 RATIO) 3.10 L Laboratory Tests 12/06 0533 Hematology WBC (4.5 - 11.0 x10 3/uL) 9.0 RBC (4.00 - 5.60 x10 6/uL) 4.30 Hgb (12.5 - 16.9 g/dL) 12.1 L Hct (37.5 - 50.7 %) 37.8 MCV (81.0 - 99.0 fL) 87.9 MCH (27.0 - 33.0 pg) 28.1 MCHC (33.0 - 37.0 g/dL) 32.0 L RDW (11.5 - 14.5 %) 14.2 Plt Count (150 - 400 x10 3/uL) 276 MPV (7.0 - 9.0 fL) 8.6 Neut % (Auto) (56.0 - 77.0 %) 62.0 Lymph % (Auto) (14.0 - 32.0 %) 24.4 [place] % (Auto) (4.8 - 9.0 %) 10.2 H Eos % (Auto) (0.3 - 3.7 %) 2.8 Baso % (Auto) (0.0 - 2.0 %) 0.4 Neut # (Auto) (2.0 - 7.6 x10 3/uL) 5.58 Lymph # (Auto) (1.0 - 3.8 x10 3/uL) 2.20 [place] # (Auto) (0.1 - 0.8 x10 3/uL) 0.92 H Eos # (Auto) (0.0 - 0.2 x10 3/uL) 0.25 H Baso # (Auto) (0.0 - 0.2 x10 3/uL) 0.04 Abs Immat Gran (auto) (0.00 - 0.03 x10 3/uL) 0.02 Immature Gran % (0.0 - 2.0 %) 0.2 Nucleated RBC % (0 - 0 %) 0.0 Nucleated RBCs # (Man) (0.0 - 0.1 x10 3/uL) 0.00 Diagnosis, Assessment Plan Free Text DxA P Notes Free Text DxA P Notes: 3-year-old male with a past medical history of HTN, HLD, CHF and CAD with s/p 7 stents who presented with complaints of chest pain. The pain did not radiate. Labs include troponin of 71, and all other labs unremarkable. Patient was transferred to [facility] from [facility] due to NSTEMI. He denies recent fever, cough, shortness of breath, or edema. 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 Patient was transferred from [facility]. Patient has medical history of VT x 3, and stroke. Patient reports chest pain on deep inhale, otherwise chest pain has subsided. Troponin noted at 98 from sending facility. Patient drowsy and awakens to sternal rub, EMS reports patient remains sustained GCS from transfer. Patient wakes up and states he does feel super sleepy. General Confirmed Patient Yes Patient Type New patient Initial Greet Date/Time 10/14/242049 Provider in Triage Greet Note I have greeted and performed a focused rapid initial assessment of this patient. A comprehensive ED assessment and evaluation of the patient, analysis of all test results, and completion of the medical decision-making process will be conducted by additional ED providers. Presentation Chief Complaint Chest pain Sudden in Onset? Yes Past Medical History - Adult Stated Complaint CP/ELEVATED TROP Allergies Coded Allergies: No Known Allergies (10/14/24) Home Medications Reported Medications FUROSEMIDE (LASIX) 20 MG PO DAILY LOSARTAN 100 MG PO DAILY SPIRONOLACTONE (ALDACTONE) 25 MG PO DAILY ASPIRIN 81 MG PO DAILY CARVEDILOL (carvediloL) 12.5 MG PO BID CLOPIDOGREL (PLAVIX) 75 MG PO DAILY ATORVASTATIN (LIPITOR) 80 MG PO BEDTIME Smoking status for patients 13 years old or older: Current every day smoker Physical Exam Vital Signs Review of Vital Signs Reviewed, Vital signs normal Basic Physical Exam Basic PE HEAD: Atraumatic/NC, EYES: PERRL, conj clear, ENT: Membranes moist, NECK: Supple, EXT: No gross abnormality, SKIN: No rashes, warm/dry, NEURO: alert oriented, NEURO: gross movement NL, PSYCH: NL thought content, Decreased responsiveness, awakens to painful stimuli. Oriented. Expiratory wheezing noted bilateral throughout. Re-Evaluation MDM ED Course Medication(s) Ordered Medication(s) Ordered: Autonomic Drugs Sig/Nia Start time Last Medication Dose Route Stop Time Status Admin Albuterol/Ipratropium 3 ML X1ED STA 10/14 2127 DC 10/14 NEB 10/14 Central Nervous System Agents Sig/Nia Start time Last Medication Dose Route Stop Time Status Admin Aspirin 324 MG X1ED STA 10/14 2105 DC PO 10/14 2106 HeinCatalino 10/14/24 2318: HPI-Chest Pain 40 and Over Free Text HPI Notes Free Text HPI Notes 63yo M w/ [facility] per pt w/ reports of midline sternal CP w/o radiation, no SOB, however on chart review previous VT and CVA, transferred from [facility] due to elevated troponin and concerns for NSTEMI. On assessment pt denies any CP or SOB. Denies infectious sx. Currently asymptomatic. Denies trauma or strenuous activities. Pt sleepy but arousable to questioning. Denies illicit drug use or etoh. Review of Systems ROS Statements All systems rev neg except as marked. Focused Review of Systems Respiratory Reports: Shortness of breath. Cardiovascular Reports: Chest pain, Dyspnea on exertion. Physical Exam Vital Signs Vital Signs First Documented: Result Date Time Pulse Ox 100 10/14 2050 B/P 141/72 10/14 2050 B/P Mean 95 10/14 2050 Temp 97.8 10/14 2050 Pulse 67 10/14 2050 Resp 16 10/14 2050 O2 Delivery Room air 10/14 2154 Last Documented: Result Date Time Pulse Ox 94 10/14 2300 B/P 139/70 10/14 2300 B/P Mean 93 10/14 2300 Pulse 71 10/14 2300 O2 Delivery Room air 10/14 2154 Temp 97.8 10/14 2050 Resp 16 10/14 2050 Free Text PE Notes Free Text PE Notes Patient resting comfortably, sleeping, but easily arousable to verbal and physical stimuli, lungs clear to auscultation bilaterally, normal heart sounds, no chest wall tenderness, abdomen soft, nontender, nondistended, no rebound or guarding, no pitting edema, pupils equal round and reactive to light not pinpoint, rest of exam benign Interpretation Diagnostics Lab Results Interpretation Results Laboratory Tests 10/14/242107: [Embedded Image Not Available] Laboratory Tests: 10/14 Chemistry Troponin I High Sens (0 - 54 ng/L) 73 H B-Natriuretic Peptide (0 - 100 PG/ML) 109.0 H LDL Cholesterol Measurd (0 - 100 mg/dL) 55.0 Toxicology Urine Opiates Screen (NEGATIVE) NEGATIVE Urine Barbiturates (NEGATIVE) NEGATIVE Ur Phencyclidine Scrn (NEGATIVE) NEGATIVE Ur Amphetamines Screen (NEGATIVE) POSITIVE H U Benzodiazepines Scrn (NEGATIVE) NEGATIVE Urine Cocaine Screen (NEGATIVE) NEGATIVE Urine Cannabinoids (NEGATIVE) POSITIVE H 10/14 2108 Chemistry Sodium (134 - 147 mEq/L) 138 Potassium (3.4 - 5.0 mEq/L) 3.6 Chloride (100 - 108 mEq/L) 106 Carbon Dioxide (21 - 33 mEq/l) 28 Anion Gap (0 - 20) 8 BUN (7 - 25 mg/dL) 15 Creatinine (0.6 - 1.3 mg/dL) 1.0 Glomerular Filtr Rate (80 - 90) 85.1 Glucose (77 - 141 mg/dL) 101 Calcium (8.0 - 10.5 mg/dL) 9.2 Magnesium (1.6 - 2.6 mg/dL) 1.86 Troponin I High Sens (0 - 54 ng/L) 71 H Coagulation INR (0.8 - 1.2) 1.0 PTT ([place]) (25.0 - 39.5 Seconds) 30.9 PT Patient/Control Mix (9.3 - 12.9 SECONDS) 11.5 Hematology WBC (4.5 - 11.0 x10 3/uL) 9.7 RBC (4.00 - 5.60 x10 6/uL) 4.06 Hgb (12.5 - 16.9 g/dL) 11.7 L Hct (37.5 - 50.7 %) 35.3 L MCV (81.0 - 99.0 fL) 86.9 MCH (27.0 - 33.0 pg) 28.8 MCHC (33.0 - 37.0 g/dL) 33.1 RDW (11.5 - 14.5 %) 14.0 Plt Count (150 - 400 x10 3/uL) 229 MPV (7.0 - 9.0 fL) 8.5 Neut % (Auto) (56.0 - 77.0 %) 64.2 Lymph % (Auto) (14.0 - 32.0 %) 21.5 [place] % (Auto) (4.8 - 9.0 %) 10.9 H Eos % (Auto) (0.3 - 3.7 %) 2.8 Baso % (Auto) (0.0 - 2.0 %) 0.3 Neut # (Auto) (2.0 - 7.6 x10 3/uL) 6.22 Lymph # (Auto) (1.0 - 3.8 x10 3/uL) 2.08 [place] # (Auto) (0.1 - 0.8 x10 3/uL) 1.06 H Eos # (Auto) (0.0 - 0.2 x10 3/uL) 0.27 H Baso # (Auto) (0.0 - 0.2 x10 3/uL) 0.03 Abs Immat Gran (auto) (0.00 - 0.03 x10 3/uL) 0.03 Immature Gran % (0.0 - 2.0 %) 0.3 Nucleated RBC % (0 - 0 %) 0.0 Nucleated RBCs # (Man) (0.0 - 0.1 x10 3/uL) 0.00 Recent Impressions: RADIOLOGY - XR CHEST 1 V 10/14 2126 Report Impression - Status: SIGNED Entered: 10/14/20242137 IMPRESSION: Cardiomegaly. No focal infiltrate or effusion. Impression By: [email or web address] - Rosemary Corea M.D. Re-Evaluation MDM Free Text MDM Notes Free Text MDM Notes 63yo M transferred from [facility] due to concerns for NSTEMI, pt asymptomtic on questioning, denies illicit drug use but somnolent on exam, vitals unremarkable, other than somnolence, benign PE, labs w/ elevated troponin, BNP 109, will admit and rpt, at this time no active CP, low suspcion for NSTEMI, consider pt baseline vs. demand, concerns for intoxication as well, Utox ordered, consider cocaine chest pain as well. MDM-Independent Interpretation My ECG Interpretation EKG as interpreted by me normal sinus rhythm to a rate of 67 evidence of prior infarct with Q waves, however no ST elevations or evidence of acute ischemia, QTc 467 Repeat EKG similar to previous with normal sinus rhythm at a rate of [address] elevation or acute ischemia, QTc 473 Patient Discharge Departure Vital Signs/Condition Vital Signs First Documented: Result Date Time Pulse Ox 100 10/14 2050 B/P 141/72 10/14 2050 B/P Mean 95 10/14 2050 Temp 97.8 10/14 2050 Pulse 67 10/14 2050 Resp 16 10/14 2050 O2 Delivery Room air 10/14 2154 Last Documented: Result Date Time Pulse Ox 94 10/14 2300 B/P 139/70 10/14 2300 B/P Mean 93 10/14 2300 Pulse 71 10/14 2300 O2 Delivery Room air 10/14 2154 Temp 97.8 10/14 2050 Resp 16 10/14 2050 All vital signs available at the time of this entry have been reviewed. Clinical Impression Clinical Impression Primary Impression: Elevated troponin Secondary Impressions: Chest pain Disposition Decision Hospitalize Hosp Physician Name Shyla Zepeda MD Hosp Physician Hospitalist Request Time 231 Request Date 10/14/24 )( Accepts Hospitalization tEXTED at 0519 at 0620 RPT #:[id number] END OF REPORT [facility]ACL Lance Jackson [facility]2024-08-03 23:50:01 Pt given printed and verbal discharge instructions regarding hypertension, non compliance with medication regimen, and asymptomatic hypertension, encouraged hydration, Prescriptions provided to patient Pt verbalized understanding of instructions, pt awake alert oriented, resp reg unlabored, skin w/d, color appropriate for race, moves all ext well,pt encouraged to follow up with pcp Advised to seek medical attention for new/prolonged/worsening of symptoms No adverse reaction to meds given in ER noted upon discharge Awake, alert oriented, resp reg unlabored, skin w/d, pt leaving amb with steady gait with las enforcement, in no apparent distress, [id number] 21:52:45 Pt brought into ED by [facility] to be medically cleared for HTN. Jeana Duron [id number] 10:10:32 Patient here to establish care. Patient informed to bring his home bottles of medications to confirm medications [facility]2019-06-01 23:43:00EXAM: CT HEAD WITHOUT CONTRAST DATE: 04/11/2019 11:43 PM CDT INDICATION: 58 years old Male patient with history of - SDH follow up. TECHNIQUE: Multiple axial images were obtained through the head from vertex to the skull base. Axial bone algorithm reconstruction images are provided. COMPARISON: CT head 04/11/2019 1815 hours FINDINGS: Limited motion degraded exam. Trace amount of subdural hemorrhage is again identified along the anterior falx. Subdural hemorrhage along the left tentorial leaflet is less conspicuous compared to prior exam. No acute new intracranial hemorrhage is identified. The ventricles are unchanged in size. Multifocal chronic lacunar infarcts in the white matter of bilateral douglas radiata. Bilateral nasal bone fractures. IMPRESSION: 1. Small subdural hematoma along the left tentorial leaflet is left aspect as compared to prior exam. Trace subdural hematoma along the anterior falx. No acute new hemorrhage is identified. 2. Nasal bone fractures. [facility]2019-06-01 23:43:00* EXAM: CT HEAD WITHOUT CONTRAST DATE: 04/11/2019 11:43 PM CDT INDICATION: 58 years old Male patient with history of - SDH follow up. TECHNIQUE: Multiple axial images were obtained through the head from vertex to the skull base. Axial bone algorithm reconstruction images are provided. COMPARISON: CT head 04/11/2019 1815 hours FINDINGS: Limited motion degraded exam. Trace amount of subdural hemorrhage is again identified along the anterior falx. Subdural hemorrhage along the left tentorial leaflet is less conspicuous compared to prior exam. No acute new intracranial hemorrhage is identified. The ventricles are unchanged in size. Multifocal chronic lacunar infarcts in the white matter of bilateral douglas radiata. Bilateral nasal bone fractures. IMPRESSION: 1. Small subdural hematoma along the left tentorial leaflet is left aspect as compared to prior exam. Trace subdural hematoma along the anterior falx. No acute new hemorrhage is identified. 2. Nasal bone fractures. [facility]2019-06-01 17:04:00EXAM: CT HEAD WITHOUT CONTRAST DATE: 04/11/2019 5:04 PM CDT INDICATION: 58 years old Male patient with history of - eval bleeding. TECHNIQUE: Multiple axial images were obtained through the head from vertex to the skull base. Axial bone algorithm reconstruction images are provided. COMPARISON: None. FINDINGS: Trace subdural hematoma along the anterior falx. Possible small subdural hematoma along the left tentorial leaflet. Mild global brain volume loss. The ventricles are normal in size. Moderate confluent periventricular and subcortical white matter hypodensities, nonspecific most commonly secondary to chronic microvascular ischemic changes. Multifocal chronic lacunar infarcts in bilateral basal ganglia and douglas radiata. The aden-white matter differentiation is otherwise maintained. Nasal bone fracture is identified. Small right periorbital soft tissue swelling. IMPRESSION: 1. Trace subdural hematoma along the anterior falx and small subdural hematoma along the left tentorial leaflet. 2. Nasal bone fracture. 3. Small right periorbital hematoma. [facility]2019-06-01 17:04:00* EXAM: CT HEAD WITHOUT CONTRAST DATE: 04/11/2019 5:04 PM CDT INDICATION: 58 years old Male patient with history of - eval bleeding. TECHNIQUE: Multiple axial images were obtained through the head from vertex to the skull base. Axial bone algorithm reconstruction images are provided. COMPARISON: None. FINDINGS: Trace subdural hematoma along the anterior falx. Possible small subdural hematoma along the left tentorial leaflet. Mild global brain volume loss. The ventricles are normal in size. Moderate confluent periventricular and subcortical white matter hypodensities, nonspecific most commonly secondary to chronic microvascular ischemic changes. Multifocal chronic lacunar infarcts in bilateral basal ganglia and douglas radiata. The aden-white matter differentiation is otherwise maintained. Nasal bone fracture is identified. Small right periorbital soft tissue swelling. IMPRESSION: 1. Trace subdural hematoma along the anterior falx and small subdural hematoma along the left tentorial leaflet. 2. Nasal bone fracture. 3. Small right periorbital hematoma. [facility]2019-06-01 16:16:00EXAM: CT FACIAL BONES WITHOUT CONTRAST DATE: 04/11/2019 at 1150 hours INDICATION: Right periorbital ecchymosis with tarsal plate sparing, 2nd interpretation requested COMPARISON: None. TECHNIQUE: An outside hospital maxillofacial CT with axial and coronal reformats are provided for 2nd interpretation from [facility]. IV contrast: None. FINDINGS: Bones: There are mildly displaced fractures of the bilateral nasal bones are present. There is deviation of the nasal septum without fracture identified. The mandible is intact, and the temporomandibular joints are well-aligned. The paranasal sinuses and mastoid air cells are clear. Soft tissues: No abnormality of the globes is seen. There is no intraconal hematoma. A right supraorbital and periorbital hematoma is present. A small 2 mm radiopaque foreign body is present just deep to the skin surface in the orbital hematoma. Vascular calcifications of the carotid bulbs. IMPRESSION: 1. Mildly displaced bilateral nasal bone fractures. 2. Right superficial periorbital/supraorbital hematoma, with a tiny, 2 mm radiopaque foreign body in the superficial subcutaneous soft tissues of the scalp. No intraorbital foreign body, air or retrobulbar hematoma. [facility]2019-06-01 16:16:00* EXAM: CT FACIAL BONES WITHOUT CONTRAST DATE: 04/11/2019 at 1150 hours INDICATION: Right periorbital ecchymosis with tarsal plate sparing, 2nd interpretation requested COMPARISON: None. TECHNIQUE: An outside hospital maxillofacial CT with axial and coronal reformats are provided for 2nd interpretation from [facility]. IV contrast: None. FINDINGS: Bones: There are mildly displaced fractures of the bilateral nasal bones are present. There is deviation of the nasal septum without fracture identified. The mandible is intact, and the temporomandibular joints are well-aligned. The paranasal sinuses and mastoid air cells are clear. Soft tissues: No abnormality of the globes is seen. There is no intraconal hematoma. A right supraorbital and periorbital hematoma is present. A small 2 mm radiopaque foreign body is present just deep to the skin surface in the orbital hematoma. Vascular calcifications of the carotid bulbs.
[2025-06-17 12:09] LABS: Absolute Lymphocytes (CBC) 2.1 K/uL (0.7-4.9); Hematocrit 44.7 % (39.6-49.0); Hemoglobin 14.9 g/dL (13.6-17.9); MCH 29.0 pg (27.0-35.0); MCHC 33.3 g/dL (32.0-36.0); MCV 87.0 fL (80-100); MPV 7.2 fL (7.6-11.3); Nucleated RBC Absolute Count 0.0 (0-0); Nucleated Red Blood Cells % 0.0 % (0-0); RBC Red Blood Cell Count 5.13 M/uL (4.33-5.43); White Blood Count 6.60 thou/uL (4.3-10.9)
[2025-06-17 12:25] LABS: PT Prothrombin Time 11.3 SECONDS (10-13.0); Protime INR 1.0
[2025-06-17 12:29] LABS: ALT/SGPT 25 U/L (16-61); AST/SGOT 23 U/L (15-37); Albumin 3.3 g/dL (3.4-5.0); Albumin/Globulin Ratio 0.9 (1.1-1.8); Alkaline Phosphatase 75 U/L (45-117); Anion Gap 8.9 mEq/L (5.0-15.0); BUN Blood Urea Nitrogen 20 mg/dL (7-18); Bilirubin Indirect, Calculated 0.2 mg/dL (0.2-0.8); Globulin 3.7 g/dL (2.3-3.5); Glucose Level 152 mg/dL (74-106); Magnesium 2.0 mg/dL (1.6-2.4); Potassium 3.9 mEq/L (3.5-5.1)
--- NOTE | 2025-06-17 12:30 | RAD REPORT ---
EXAMINATION: ONE VIEW CHEST XR CLINICAL INDICATION: syncope TECHNIQUE: Frontal chest projection is submitted. Examination is limited by patient positioning and t echnique. COMPARISON: 11/03/2024 FINDINGS: Mild bilateral pulmonary edema is suspected. The heart is moderately enlarged in size. No displaced f ractures identified. Sternotomy wires. IMPRESSION: Mild CHF versus volume overload pattern is suspected.
[2025-06-17 12:32] LABS: Troponin High Sensitivity 285.7 pg/mL (<58.9)
--- NOTE | 2025-06-17 12:49 | RAD REPORT ---
EXAM: CT Head Brain Wo Cont HISTORY: SYNCOPE COMPARISON: 04/11/2019 TECHNIQUE: Multiple contiguous axial images were obtained for a CT of the brain without contrast. Sag ittal and coronal reformats were performed. One or more of the following dose reduction techniques were used: Automated exposure control, adjus tment of the mA and kV according to patient size, and iterative reconstruction. Unless otherwise specified, incidental findings do not require dedicated imaging follow-up. FINDINGS: No evidence of hydrocephalus, intracranial hemorrhage, or extra-axial fluid collection. Left centrum semiovale foci of hypoattenuation are stable. New foci of hypoattenuation in the left ba corey ganglia and right centrum semiovale, as well as a new linear focus along the right inferior cerebellar hemisphere, are suggestive of small remote infarcts of indeterminate age. Moderate patchy periventricular and deep white matter hypodensities are also progressive since the prior exam, most suggestive of chronic microvascular ischemic changes. The calvarium is intact. The visualized paranasal sinuses and mastoid air cells are essentially clear . IMPRESSION: New foci of hypoattenuation in the left basal ganglia and right centrum semiovale regions as well as the right inferior cerebellar hemisphere, suggesting small infarcts of indeterminate age. If there is persistent clinical concern for acute ischemia, additional evaluation by MRI with provide improved assessment. Progressive nonspecific white matter patchy hypoattenuation, suggesting progressive chronic small ves siddhartha ischemic changes. THIS REPORT CONTAINS FINDINGS THAT MAY BE CRITICAL TO PATIENT CARE. The findings were verbally commun icated via telephone to Miquel Lawson on 06/17/2025 12:46 PM.
--- NOTE | 2025-06-17 13:52 | RAD REPORT ---
EXAMINATION: CTA HEAD CLINICAL INDICATION: Male, 64 years old. AMS TECHNIQUE: Axial CT images were obtained through the head after intravenous contrast utilizing angiog raphic protocol with 3D post-processing (maximum intensity projection images, volume rendered images and/or shaded surface rendered images). One or more of the following dose reduction technique s were used: Automated exposure control, adjustment of the mA and/or kV according to patient size, and/or iterative reconstruction. Unless otherwise specified, incidental findings do not require dedic ated imaging follow-up. COMPARISON: Noncontrast head CT of the same day. FINDINGS: ICA: The petrous, cavernous, and supraclinoid segments of the bilateral internal carotid arteries are patent with moderate atherosclerotic calcific plaque. URBAN: Nonopacification of the right A1 segment which could be chronic or developmental. Patent right a nterior communicating artery. Diminutive caliber with multifocal up to moderate narrowing of the right A2 segment, with occlusion possibly at its bifurcation point, see axial images 97 and 98 and co anna image 70 among others. MCA: Middle cerebral arteries are patent bilaterally with multifocal mild narrowing along the left mo re than right A1 segments. MANAGER DIVISION: Multifocal mild right and moderate to severe left-sided narrowing, with marked luminal irregular ity and narrowing with sluggish opacification along the left distal V2 segment and its branches, see coronal image 124 through 130. Vertebrobasilar: Right vertebral artery is diminutive with very sluggish opacification, and left vert ebral artery is patent with moderate calcific atherosclerotic plaque. Mild segmental narrowing of the mid to distal basilar artery. Patent right posterior communicating artery. 3D images confirm these findings. IMPRESSION: Occlusion of the right A2 segment, preceded by long segment of narrowing and luminal irregularity. Multifocal narrowing and luminal irregularity along the distal basilar artery and left more than righ t posterior cerebral arteries as above, with up to severe narrowing of the distal V2 and its branches. Other intracranial atherosclerotic disease as above. THIS REPORT CONTAINS FINDINGS THAT MAY BE CRITICAL TO PATIENT CARE. The findings were verbally commun icated via telephone to Miquel Lawson on 06/17/2025 1:45 PM.
--- NOTE | 2025-06-17 13:56 | EDPHYS ---
Physician Documentation [facility] Name: Adin Mast Age: 64 yrs Sex: Male : 1960 Arrival Date: 06/17/2025 Time: 11:44 Bed 3 Private MD: ED Physician Miquel Lawson HPI: 06/17 12:52 This 64 yrs old Male presents to ER via EMS with complaints of Syncope, altered mental sp3 status. 12:52 64-year-old male with history of hypertension, prior PA, CVA status post CABG, now sp3 presents to the ED with syncopal episode after being on the toilet having a bowel movement. Patient has been altered since then. Patient responds to sternal rub. ROS, history physical limited secondary to altered mental status. EMS states he was more awake in the field for them.. Historical: - Allergies: 11:55 No Known Allergies; ph - PMHx: 11:55 Hypertension; Myocardial infarction; CVA (Coronary artery bypass graft); ph - PSHx: 11:55 Coronary artery bypass graft; ph - Immunization history:: Adult Immunizations unknown. - Infectious Disease History:: unable to obtain. - Social history:: Smoking status: unknown. ROS: 12:53 Unable to obtain ROS due to altered mental status, sp3 Exam: 12:05 ECG was reviewed by the Attending Physician. EKG demonstrates normal sinus rhythm at 62 sp3 bpm with normal intervals, nonspecific intraventricular delay, leftward axis and nonspecific diffuse ST/T changes without evidence of acute ischemia. 12:53 Unable to obtain exam due to altered mental status, sp3 12:53 Constitutional: The patient appears Patient maintaining his airway, and has a gag sp3 reflex. Blood pressure elevated at 180/100. Pulse of 61. Afebrile and breathing at 18. Pupils are 2 to 3 mm and minimally reactive. Patient responds to sternal rub moving all 4 extremities. Abdomen is soft. Lungs are clear. No signs of trauma. Vital Signs: 11:50 BP 189 / 105; Pulse 61; Resp 20; Temp 96.3(A); Pulse Ox 97% on R/A; Weight 71.5 kg; ph 12:15 BP 183 / 112; Pulse 62; Resp 18; Pulse Ox 98% on R/A; ph 12:45 BP 161 / 114; Pulse 62; Resp 16; Pulse Ox 100% on R/A; ph 13:20 BP 192 / 106; Pulse 62; Resp 19; Pulse Ox 100% on R/A; ph 13:47 BP 165 / 93; Pulse 65; Resp 18; Pulse Ox 100% on ETT vent; FiO2 50 %; ph 13:52 BP 134 / 86; Pulse 67; Resp 16; Pulse Ox 100% on ETT vent; FiO2 50 %; ph 14:20 BP 137 / 92; Pulse 63; Resp 16; Temp 97; Pulse Ox 100% on ETT vent; FiO2 50 %; ph 14:42 BP 185 / 106; Pulse 72; Resp 16; Pulse Ox 100% on ETT vent; FiO2 50 %; ph NIH Stroke Scale Scores: 11:50 NIHSS Score: 7 ph 11:50 NIHSS Score: 34 ph Fernando Coma Score: 12:00 Eye Response: to pain(2). Motor Response: obeys commands(6). Verbal Response: ph confused(4). Total: 12. 13:20 Eye Response: to pain(2). Motor Response: withdraws from pain(4). Verbal Response: ph incomprehensible(2). Total: 8. Procedures: 14:04 Intubation: Ventilated with 100% NRB prior to procedure. Intubated orally using # 4 sp3 Gerson blade with 7.5 mm ETT. was successful on first attempt. Ventilated with Ambu bag. Tube secured with ETT nixon Placement verified by CXR, CO2 detector with (+) color change, auscultating bilateral breath sounds, O2 saturation after procedure was 98 %. Patient tolerated well. MDM: 11:52 Medical Screening Exam initiated sp3 12:54 Data reviewed: vital signs, nurses notes, lab test result(s), EKG, radiologic studies. sp3 ED course: 64-year-old male with altered mental status and setting of prior cardiac and CVA pathology. Initial CT scan negative except for worsening lacunar infarcts and white matter attenuation. No obvious bleed noted. Blood sugar is normal. Differential diagnosis is broad and includes metabolic disturbance, intracranial pathology including bleed or CVA, hypoglycemia, other infection, cardiac pathology including ACS, among others. Full labs still pending which troponin is back and is mildly elevated. I have also sent patient for tox screen, aspirin and Tylenol levels, alcohol level, ABG, and CTA of the brain and neck. Disposition admission versus transfer for neurology consultation.. 13:07 ED course: Patient continues to be very difficult to arouse and I am worried about his sp3 airway protection. Tox labs are all negative. Patient is en route to CT for CT angiogram of the brain and neck and upon return we will intubate in a controlled fashion for airway protection, transfer and general protection.. 13:46 ED course: Patient successfully intubated. Discussed with radiologist and patient has sp3 diffuse multiple cerebral artery lesions and stenoses. Large vessel occlusion also noted in the right A2. See radiology report. Troponin is also positive. Will discuss with [facility] team on anticoagulation.. 14:14 ED course: Discussed with neurology team at [facility] who will be accepting sp3 for possible thrombectomy. Patient will be LifeFlight-ed there.. 06/17 11:53 Order name: Basic Metabolic Panel; Complete Time: 12:51 sp3 06/17 11:53 Order name: CBC with Diff; Complete Time: 12:51 sp3 06/17 11:53 Order name: Hepatic Function; Complete Time: 12:51 sp3 06/17 11:53 Order name: Magnesium; Complete Time: 12:51 sp3 06/17 11:53 Order name: Protime (+inr); Complete Time: 12:51 sp3 06/17 11:53 Order name: Troponin High Sensitivity; Complete Time: 12:51 sp3 06/17 12:01 Order name: Glucose, Ancillary Testing; Complete Time: 12:05 EDMS 06/17 12:25 Order name: ETOH Level; Complete Time: 13:05 sp3 06/17 12:25 Order name: Acetaminophen; Complete Time: 13:54 sp3 06/17 12:25 Order name: ASA; Complete Time: 13:05 sp3 06/17 12:25 Order name: UDS sp3 06/17 12:25 Order name: AMMONIA; Complete Time: 13:05 sp3 06/17 12:26 Order name: UA Rfx Tyrese Cult if indicated sp3 06/17 12:51 Order name: Glucose, Ancillary Testing; Complete Time: 13:05 EDMS 06/17 14:02 Order name: ABG sp3 06/17 11:53 Order name: CT Head Brain wo Cont; Complete Time: 12:51 sp3 06/17 11:53 Order name: Chest Single View XRAY; Complete Time: 12:51 sp3 06/17 12:51 Order name: CT Head Angio; Complete Time: 13:54 sp3 06/17 12:51 Order name: CT Neck Angio; Complete Time: 14:00 sp3 06/17 13:30 Order name: CXR XRAY sp3 06/17 11:53 Order name: Cardiac monitoring; Complete Time: 11:57 sp3 06/17 11:53 Order name: EKG - Nurse/Tech; Complete Time: 11:57 sp3 06/17 11:53 Order name: IV Saline Lock; Complete Time: 11:57 sp3 06/17 11:53 Order name: Labs collected and sent; Complete Time: 12:00 sp3 06/17 11:53 Order name: NPO; Complete Time: 11:57 sp3 06/17 11:53 Order name: O2 Per Protocol; Complete Time: 11:57 sp3 06/17 11:53 Order name: O2 Sat Monitoring; Complete Time: 11:57 sp3 06/17 12:26 Order name: Montiel; Complete Time: 13:09 sp3 06/17 12:26 Order name: Accucheck; Complete Time: 12:39 sp3 Administered Medications: 13:25 Drug: Succinylcholine IVP 100 mg IVP once Route: IVP; Site: left antecubital; ph 14:48 Follow up: Response: No adverse reaction; Patient is sedated ph 13:25 Drug: Etomidate IVP 20 mg IVP once Route: IVP; Site: left antecubital; ph 14:48 Follow up: Response: No adverse reaction; Patient is sedated ph 13:30 Drug: Propofol IVP 60 mg IVP once; Document RASS score. Route: IVP; Site: left ph antecubital; 14:48 Follow up: Response: No adverse reaction; Patient is sedated; RASS: Moderate sedation ph (-3) 13:37 Drug: Propofol IV 5 mcg/kg/min IV at calculated rate See Administration Instructions; ph Standard concentration 1000 mg / 100 mL; Recommended max rate 50 mcg/kg/min; Titrate 5 mcg/kg/min every 5 minutes to achieve goal (see titration policy); Goal parameter RASS score 0 to -2 Route: IV; Rate: calculated rate; Site: left antecubital; 14:49 Follow up: Response: No adverse reaction; Patient is sedated; RASS: Moderate sedation ph (-3); IV Status: Infusion continued upon transfer Point of Care Testing: Blood Glucose: 12:39 Blood Glucose: 132 mg/dL; me1 Ranges: Critical Glucose Levels:Adult <50 mg/dl or >400 mg/dl <40 mg/dl or >180 mg/dl Disposition Summary: 06/17/25 13:56 Transfer Ordered Notes: Transfer Location: [facility] sp3 Reason: Higher level of care sp3 Condition: Stable sp3 Problem: an acute exacerbation sp3 Symptoms: have worsened sp3 Accepting Physician: [facility] [place] [facility]06/17/25 14:59) ph Diagnosis - CVA, altered mental status, intubation sp3 Forms: - Medication Reconciliation Form sp3 - SBAR form sp3 Critical care time excluding procedures: 13:48 Critical care time: Bedside Care: 25 minutes, Consultation: 10 minutes. Total time: 35 sp3 minutes NIH Stroke Scale - NIH Stroke Score Date: 06/17/2025 Time: 11:50 Total Score = 7 10. Dysarthria (speech clarity - read or repeat words) - 1(Mild to Moderate) 11. Extinction and Inattention (visual/tactile/auditory/spatial/personal) - 0(No abnormality) 1a. Level of Consciousness (LOC) - 2(Not Alert, obtunded) 1b. Level of Consciousness (LOC) (Month \T\ Age) - 2(Neither) 1c. LOC Commands (Open \T\ Closes Eyes/Diesel Engine Mechanic) - 1(One) 2. Best Gaze (Lateral Gaze Paresis) - 0(Normal) 3. Visual Field Loss - 0(No visual loss) 4. Facial Palsy - 0(Normal) 5a. Left Arm: Motor (10-second hold) - 0(No drift) 5b. Right Arm: Motor (10-second hold) - 0(No drift) 6a. Left Leg: Motor (5-second hold - always test supine) - 0(No drift) 6b. Right Leg: Motor (5-second hold - always test supine) - 0(No drift) 7. Limb Ataxia (finger/nose \T\ heel/yarbrough - test with eyes open) - 0(Absent) 8. Sensory Loss (pinprick arms/legs/face) - 0(Normal) 9. Best Language: Aphasia (description/naming/reading) - 1(Mild to moderate aphasia) Initials: NIH Stroke Scale - NIH Stroke Score Date: 06/17/2025 Time: 11:50 Total Score = 34 10. Dysarthria (speech clarity - read or repeat words) - UN(Intubated) - Notes: intubated 11. Extinction and Inattention (visual/tactile/auditory/spatial/personal) - 2(Profound) 1a. Level of Consciousness (LOC) - 3(Unresponsive) 1b. Level of Consciousness (LOC) (Month \T\ Age) - 2(Neither) 1c. LOC Commands (Open \T\ Closes Eyes/Diesel Engine Mechanic) - 2(Neither) 2. Best Gaze (Lateral Gaze Paresis) - 0(Normal) 3. Visual Field Loss - 3(Bilateral hemianopia) 4. Facial Palsy - 3(Complete paralysis) 5a. Left Arm: Motor (10-second hold) - 4(No movement) 5b. Right Arm: Motor (10-second hold) - 4(No movement) 6a. Left Leg: Motor (5-second hold - always test supine) - 4(No movement) 6b. Right Leg: Motor (5-second hold - always test supine) - 4(No movement) 7. Limb Ataxia (finger/nose \T\ heel/yarbrough - test with eyes open) - 0(Absent) 8. Sensory Loss (pinprick arms/legs/face) - 0(Normal) 9. Best Language: Aphasia (description/naming/reading) - 3(Mute, global aphasia) Initials: Signatures: Dispatcher [employer] EDMS Thelma Irvin, RN RN Miquel Lawson MD MD sp3 Corrections: (The following items were deleted from the chart) 11:54 11:54 Head Brain Wo Cont+CT.RAD.BRZ ordered. EDMS EDMS 11:54 11:54 Chest Single View+RAD.RAD.BRZ ordered. EDMS EDMS 13:10 13:10 Venous Blood Gas+RC.LAB.BRZ ordered. EDMS EDMS 13:18 12:25 Arterial Blood Gas+RC.LAB.BRZ ordered. EDMS EDMS 13:48 13:46 ED course: Patient successfully intubated. Discussed with radiologist and sp3 patient has diffuse multiple cerebral artery lesions and stenoses. Large vessel occlusion also noted in the right A2. See radiology report.. sp3 14:17 14:14 ED course: Discussed with neurology team at [facility]. sp3 sp3 14:59 11:53 Orthostatics ordered. sp3 ph 14:59 13:56 [facility] [place] sp3 ph
--- NOTE | 2025-06-17 13:56 | ER ---
Nurse's Notes [facility] Name: Adin Mast Age: 64 yrs Sex: Male : 1960 Arrival Date: 06/17/2025 Time: 11:44 Bed 3 Private MD: Diagnosis: CVA, altered mental status, intubation Presentation: 06/17 11:50 Chief complaint: EMS states: Had syncopal episode while on toilet, when EMS arrived pt ph was lethargic, BGL 69, gave 10 gram D10, improved to 147, BP elevated at 180/120, gave nitro, decreased to 167/90, Hr 50's, gave 0.5 mg Atropine, increased to 60-70s, no improvement in pt's symptoms, remains lethargic and minimally responsive. Coronavirus screen: Vaccine status: unable to obtain. Ebola Screen: No symptoms or risks identified at this time. Initial Sepsis Screen: Does the patient meet any 2 criteria? No. Patient's initial sepsis screen is negative. Does the patient have a suspected source of infection? No. Patient's initial sepsis screen is negative. Risk Assessment: Do you want to hurt yourself or someone else? Patient reports no desire to harm self or others. Onset of symptoms was June 17, 2025. 11:50 Method Of Arrival: EMS: [facility] ph 11:50 Acuity: MARÍA 2 ph 11:55 Care prior to arrival: Medication(s) given: ASA, 81 mg, x 4, IV initiated. 18 GA, in ph the left antecubital area. Triage Assessment: 11:57 General: Appears in no apparent distress. Behavior is drowsy, listless, quiet. Pain: ph Unable to use pain scale. Neuro: Level of Consciousness is lethargic, listless, Reports a syncopal episode. Historical: - Allergies: 11:55 No Known Allergies; ph - PMHx: 11:55 Hypertension; Myocardial infarction; CVA (Coronary artery bypass graft); ph - PSHx: 11:55 Coronary artery bypass graft; ph - Immunization history:: Adult Immunizations unknown. - Infectious Disease History:: unable to obtain. - Social history:: Smoking status: unknown. Screenin:50 Berkley Swallow Protocol Exclusion Criteria: Unable to remain alert for testing: Yes ph Exclusion Criteria Result: Defer \T\ Re-attempt Result: FAIL Notified: Miquel Lawson MD. 11:57 Abuse screen: Denies threats or abuse. Denies injuries from another. Nutritional ph screening: No deficits noted. Tuberculosis screening: No symptoms or risk factors identified. 13:48 [facility] ED Fall Risk Assessment (Adult) History of falling in the last 3 months, ph including since admission No falls in past 3 months (0 pts) Confusion or Disorientation Yes (5 pts) Intoxicated or Sedated Yes (3 pts) Impaired Gait No (0 pts) Mobility Assist Device Used No (0 pt) Altered Elimination No (0 pt) Score/Fall Risk Level 3 or more points = High Risk Oriented to surroundings, Maintained a safe environment, Hourly rounding (assess needs \T\ fall precautionary measures) done, Used ambulatory aids as needed (educated on \T\ assisted with). Assessment: 12:00 General: Appears in no apparent distress. Behavior is drowsy, quiet, minimally ph responsive. Pain: Unable to use pain scale. Does not appear to understand pain scale. Neuro: Level of Consciousness is lethargic, listless, Oriented to person. Cardiovascular: Capillary refill < 3 seconds in bilateral fingers Patient's skin is warm and dry. Rhythm is sinus rhythm. Respiratory: Airway is patent Respiratory effort is even, unlabored. GI: No signs and/or symptoms were reported involving the gastrointestinal system. Derm: Skin is healthy with good turgor, Skin is pink, warm \T\ dry. 13:20 Reassessment: LOC decreasing, Dr Lawson and RT at bedside for intubation. ph 13:54 Cardiovascular: Rhythm is sinus rhythm. ph 14:03 Reassessment: Attempted to reach pts' Becki Mast at [phone], no answer. . aa5 14:25 Reassessment: Was able to reach pt's at [phone], Becki Mast, updated about aa5 pt's condition and POC of transfer to [facility] via life flight, pt's verbalized understanding. . 14:31 Reassessment: Report given to OMAR Abreu at [facility] ED, awaiting Life Flight for transport. 14:43 Reassessment: Life Flight at bedside, pt transferred to [facility]. ph Vital Signs: 11:50 BP 189 / 105; Pulse 61; Resp 20; Temp 96.3(A); Pulse Ox 97% on R/A; Weight 71.5 kg; ph 12:15 BP 183 / 112; Pulse 62; Resp 18; Pulse Ox 98% on R/A; ph 12:45 BP 161 / 114; Pulse 62; Resp 16; Pulse Ox 100% on R/A; ph 13:20 BP 192 / 106; Pulse 62; Resp 19; Pulse Ox 100% on R/A; ph 13:47 BP 165 / 93; Pulse 65; Resp 18; Pulse Ox 100% on ETT vent; FiO2 50 %; ph 13:52 BP 134 / 86; Pulse 67; Resp 16; Pulse Ox 100% on ETT vent; FiO2 50 %; ph 14:20 BP 137 / 92; Pulse 63; Resp 16; Temp 97; Pulse Ox 100% on ETT vent; FiO2 50 %; ph 14:42 BP 185 / 106; Pulse 72; Resp 16; Pulse Ox 100% on ETT vent; FiO2 50 %; ph Vitals: 13:52 Cardiac Rhythm Assessment Sinus rhythm. ph Rutland Coma Score: 12:00 Eye Response: to pain(2). Motor Response: obeys commands(6). Verbal Response: ph confused(4). Total: 12. 13:20 Eye Response: to pain(2). Motor Response: withdraws from pain(4). Verbal Response: ph incomprehensible(2). Total: 8. NIH Stroke Scale Scores: 11:50 NIHSS Score: 7 ph 11:50 NIHSS Score: 34 ph ED Course: 11:49 Patient arrived in ED. aa5 11:50 EKG done, by ED staff, reviewed by Miquel Lawson MD. ph 11:52 Miquel Lawson MD is Attending Physician. sp3 11:54 Nelson Sultana, OMAR is Primary Nurse. ar8 11:55 Triage completed. ph 11:56 Arm band placed on Patient placed in an exam room, on a stretcher, on vehicle monitor technician, ph on pulse oximetry. 12:00 Initial lab(s) drawn, by ED staff, sent to lab. ph 12:11 Chest Single View XRAY In Process Unspecified. EDMS 12:16 CT Head Brain wo Cont In Process Unspecified. EDMS 12:35 Maintain EMS IV. Dressing intact. Good blood return noted. Site clean \T\ dry. Gauge \T\ ph site: 18 LAC. Flushed with 10 mL NS. 12:45 Inserted saline lock: 22 gauge in right antecubital area, using aseptic technique. ph 13:23 CT Head Angio In Process Unspecified. EDMS 13:23 CT Neck Angio In Process Unspecified. EDMS 13:25 Assisted provider with intubation using 7.5 mm ETT via oral route. ET tube secured at ph 23cm at the lips. Set up intubation tray. Intubated by Miquel Lawson MD Placement verified by CO2 detector w/ + color change, auscultating bilateral breath sounds, CXR, Patient tolerated well. 13:35 NGT: inserted 14 Fr. other via oral route verified placement of air over stomach, ph Placement verified by X-ray, to intermittent suction. 13:45 CXR XRAY In Process Unspecified. EDMS 13:51 Patient has correct armband on for positive identification. Bed in low position. Call ph light in reach. Side rails up X2. telemetry monitor on. Pulse ox on. NIBP on. 13:58 transfer initiated with Hetal at the [facility]. bc6 14:16 acceptance received with Hetal for DR Bhavana Curran at [facility]. bc6 14:22 trevyor with [facility] flight crew accepted flight with ETA of 8 minutes. bc6 14:30 Urine collected: Montiel catheter specimen. Montiel cath inserted, using sterile technique, db 16 Fr., by nm, balloon inflated, to gravity drainage, urine specimen collected. returned clear yellow urine. 14:49 Patient transferred, IV remains in place. ph Administered Medications: 13:25 Drug: Succinylcholine IVP 100 mg IVP once Route: IVP; Site: left antecubital; ph 14:48 Follow up: Response: No adverse reaction; Patient is sedated ph 13:25 Drug: Etomidate IVP 20 mg IVP once Route: IVP; Site: left antecubital; ph 14:48 Follow up: Response: No adverse reaction; Patient is sedated ph 13:30 Drug: Propofol IVP 60 mg IVP once; Document RASS score. Route: IVP; Site: left ph antecubital; 14:48 Follow up: Response: No adverse reaction; Patient is sedated; RASS: Moderate sedation ph (-3) 13:37 Drug: Propofol IV 5 mcg/kg/min IV at calculated rate See Administration Instructions; ph Standard concentration 1000 mg / 100 mL; Recommended max rate 50 mcg/kg/min; Titrate 5 mcg/kg/min every 5 minutes to achieve goal (see titration policy); Goal parameter RASS score 0 to -2 Route: IV; Rate: calculated rate; Site: left antecubital; 14:49 Follow up: Response: No adverse reaction; Patient is sedated; RASS: Moderate sedation ph (-3); IV Status: Infusion continued upon transfer Medication: 13:51 VIS not applicable for this client. ph Point of Care Testing: Blood Glucose: 12:39 Blood Glucose: 132 mg/dL; me1 Ranges: Outcome: 13:56 ER care complete, transfer ordered by sp3 14:50 Transferred by helicopter Life Flight. to [facility], Transfer form ph completed. X-rays sent w/ patient. 14:50 Condition: stable 14:59 Patient left the ED. ph NIH Stroke Scale - NIH Stroke Score Date: 06/17/2025 Time: 11:50 Total Score = 7 10. Dysarthria (speech clarity - read or repeat words) - 1(Mild to Moderate) 11. Extinction and Inattention (visual/tactile/auditory/spatial/personal) - 0(No abnormality) 1a. Level of Consciousness (LOC) - 2(Not Alert, obtunded) 1b. Level of Consciousness (LOC) (Month \T\ Age) - 2(Neither) 1c. LOC Commands (Open \T\ Closes Eyes/Car Spotter) - 1(One) 2. Best Gaze (Lateral Gaze Paresis) - 0(Normal) 3. Visual Field Loss - 0(No visual loss) 4. Facial Palsy - 0(Normal) 5a. Left Arm: Motor (10-second hold) - 0(No drift) 5b. Right Arm: Motor (10-second hold) - 0(No drift) 6a. Left Leg: Motor (5-second hold - always test supine) - 0(No drift) 6b. Right Leg: Motor (5-second hold - always test supine) - 0(No drift) 7. Limb Ataxia (finger/nose \T\ heel/yarbrough - test with eyes open) - 0(Absent) 8. Sensory Loss (pinprick arms/legs/face) - 0(Normal) 9. Best Language: Aphasia (description/naming/reading) - 1(Mild to moderate aphasia) Initials: ph NIH Stroke Scale - NIH Stroke Score Date: 06/17/2025 Time: 11:50 Total Score = 34 10. Dysarthria (speech clarity - read or repeat words) - UN(Intubated) - Notes: intubated 11. Extinction and Inattention (visual/tactile/auditory/spatial/personal) - 2(Profound) 1a. Level of Consciousness (LOC) - 3(Unresponsive) 1b. Level of Consciousness (LOC) (Month \T\ Age) - 2(Neither) 1c. LOC Commands (Open \T\ Closes Eyes/Car Spotter) - 2(Neither) 2. Best Gaze (Lateral Gaze Paresis) - 0(Normal) 3. Visual Field Loss - 3(Bilateral hemianopia) 4. Facial Palsy - 3(Complete paralysis) 5a. Left Arm: Motor (10-second hold) - 4(No movement) 5b. Right Arm: Motor (10-second hold) - 4(No movement) 6a. Left Leg: Motor (5-second hold - always test supine) - 4(No movement) 6b. Right Leg: Motor (5-second hold - always test supine) - 4(No movement) 7. Limb Ataxia (finger/nose \T\ heel/yarbrough - test with eyes open) - 0(Absent) 8. Sensory Loss (pinprick arms/legs/face) - 0(Normal) 9. Best Language: Aphasia (description/naming/reading) - 3(Mute, global aphasia) Initials: ph Signatures: Dispatcher [employer] EDCandy Chandler, RN RN aa5 Thelma Irvin RN RN ph Miquel Lawson MD MD sp3 Sarita Holder, RN RN db Mirian Boyce6 Tere Bunn RN RN me1 Nelson Sultana, RN RN ar8 Corrections: (The following items were deleted from the chart) 11:56 11:50 BP 189 / 105; Pulse 61bpm; Resp 20bpm; Pulse Ox 97% RA; ph ph 14:27 14:25 Reassessment: Was able to reach pt's at [phone], Becki Mast, aa5 updated about pt's condition and POC of transfer to [facility], pt's verbalized understanding. . aa5 14:46 13:48 [facility] ED Fall Risk Assessment (Adult) History of falling in the last 3 ph months, including since admission No falls in past 3 months (0 pts) Confusion or Disorientation Yes (5 pts) Intoxicated or Sedated Yes (3 pts) Impaired Gait No (0 pts) Mobility Assist Device Used No (0 pt) Altered Elimination No (0 pt) Score/Fall Risk Level 3 or more points = High Risk Oriented to surroundings, Maintained a safe environment, Hourly rounding (assess needs \T\ fall precautionary measures) done, Used ambulatory aids as needed (educated on \T\ assisted with), ph
--- NOTE | 2025-06-17 13:57 | RAD REPORT ---
EXAMINATION: CT Neck Angio CLINICAL INDICATION: Male, 64 years old. [facility] Bed Name: 3 TECHNIQUE: Axial CT images were obtained from the aortic arch to the skull base after intravenous con trast utilizing angiographic protocol. Multiplanar reformats, as well as 3D post-processing (maximum intensity projection images, volume rendered images and/or shaded surface rendered images) w ere generated and reviewed. One or more of the following dose reduction techniques were used: Automated exposure control, adjustment of the mA and/or kV according to patient size, and/or iterativ e reconstruction. Unless otherwise specified, incidental findings do not require dedicated imaging follow-up. COMPARISON: No prior exam. FINDINGS: AORTA: The imaged aortic arch is normal. Normal three-vessel configuration of the arch. CCA: No artifact The common carotid arteries are patent and normal in caliber. ICA/ECA: Moderate to advanced mixed density atherosclerotic plaque at the distal common carotid arter ies and the bifurcations, with bilateral narrowing at the ICA origins. Narrowest luminal diameter at the left ICA origin measures 2.4 mm compared to 5.2 mm more distally, amounting to 54% stenosis. N arrowest luminal diameter at the right ICA origin measures 2 mm compared to 5.3 mm more distally, amounting to 63% stenosis. VERTEBRAL: Left vertebral artery is patent with moderate atherosclerotic calcific plaque. Possibly mi ld to moderate narrowing at its origin. Right vertebral artery appears diminutive throughout, possibly related to chronic stenosis, with very sluggish opacification at the junction of V3 and V4 s egments. SOFT TISSUE: No significant neck soft tissue abnormalities. The visualized lung apices are clear. Moderate degenerative changes1 of the cervical spine. 3D images confirm these findings. IMPRESSION: Moderate to advanced mixed density atherosclerotic changes at the carotid bifurcations with degrees o f stenosis measuring up to 63% on the left and 54% on the right by NASCET criteria. Diminutive caliber of the right vertebral artery possibly related to chronic stenosis with very slugg diane opacification of the junction of V3 and V4 segments. THIS REPORT CONTAINS FINDINGS THAT MAY BE CRITICAL TO PATIENT CARE. The findings were verbally commun icated via telephone to Miquel Lawson on 06/17/2025 1:45 PM. NASCET criteria used to quantify ICA stenosis, with the following grading scheme: Mild 0-49% stenosis Moderate 50-69% stenosis Severe 70-99% stenosis Reference: [place] Symptomatic Carotid Endarterectomy Trial Collaborators; Shaw HJM, Ana LACEY, Chay RB, et al. Beneficial effect of carotid endarterectomy in symptomatic patients with high-grade carotid stenosis. N Engl J Med. 1990Jun 25;325(7):445-53.
[2025-06-17 14:11] LABS: Arterial Blood Carboxyhemoglob 0.8 % (0.0-1.5); Blood Gas Inspired Oxygen 50.0 %; Blood Gas Oxyhemoglobin 97.6 % (94.0-97.0); Blood O2 Saturation 99.7 % (92.0-98.5)
[2025-06-17] MEDS ORDERED: NA CHLORIDE 0.9% 1,000 ML ONE (14:24)
[2025-06-17 14:59] LABS: Urine Microscopic Reflex YN NO UMIC
[2025-06-17 15:08] VITALS: O2SAT 100
--- NOTE | 2025-06-17 15:10 | RAD REPORT ---
EXAMINATION: ONE VIEW CHEST XR CLINICAL INDICATION: Male, 64 years old.,Post Intubation TECHNIQUE: Frontal chest projection is submitted. Examination is limited by patient positioning and t echnique. COMPARISON: 06/17/2025. FINDINGS: ET tube tip is 5.8 cm above the ramandeep. The lungs are well inflated. Mild left basilar patchy opacity . No pneumothorax or sizable effusion. The heart is normal in size. Mediastinal contours are unremarkable. IMPRESSION: ET tube tip is 5.8 cm above the ramandeep. Mild left basilar patchy opacity concerning for pneumonia.
[2025-06-17 15:15] VITALS: TEMP 97
[2025-06-17 15:17] VITALS: BP 185/106
[2025-06-17 15:28] LABS: METHAMPHETAM POSITIVE (NEGATIVE); THC Cannibis POSITIVE (NEGATIVE)
== END 2025-06-17 14:59 | disposition short-term general hospital (02) ==
LOC: ER 11:44
DX: I63.9 Cerebral infarction, unspecified (principal); R29.734 NIHSS score 34; I10 Essential (primary) hypertension; Z95.1 Presence of aortocoronary bypass graft
CPT/HCPCS: 96365; 93005; 85025; 80048; 36415; 82140; 83735; 85610; 82947 ×2; 80076; 81003; 84484; 80307; 70450; 70496; 70498; 71045 ×2; 31500; 51702; 96375; 43753; 99291; 80143; 80179; 82077; 82805; 36600; 94002; Q9967; J2704; J0330; J7030